=== PATIENT | female | born 1975 | race African-American/Black ===

== ENCOUNTER → 2016-05-31 | Outpatient (CLI) | payer MEDICAID | LOC: RAD 10:25 | PROVIDERS: ATTEND Physician Assistant | DX: G89.4 Chronic pain syndrome (principal) | CPT/HCPCS: 74022 ==

== ENCOUNTER 2016-06-13 09:24 | Outpatient (CLI) | payer MEDICAID ==
[~2016-06-13 09:24] MED LIST: FERRIC CARBOXYMALTOSE 750 MG in NORMAL SALINE 250 ML IV PRN; NORMAL SALINE 250 ML IV PRN
[2016-06-13 10:43] VITALS: BP 137/90
== END 2016-06-13 11:51 | disposition home or self-care (01) ==
LOC: II 09:24 → 5TH 09:26 → II 11:51
PROVIDERS: ATTEND Internal Medicine
PROC: 3E033GC Introduction of Other Therapeutic Substance into Peripheral Vein, Percutaneous Approach (ICD-10-PCS; principal; 2016-06-13)
DX: D50.8 Other iron deficiency anemias (principal); K90.9 Intestinal malabsorption, unspecified
CPT/HCPCS: 96365; J7050; J1439; 96367

== ENCOUNTER 2016-06-15 01:35 | Emergency (ER) | payer MEDICAID ==
[2016-06-15] MEDS ORDERED: PROMETHAZINE HCL INJ 25 MG/1 ML VIAL IM ONE (02:10)
--- NOTE | 2016-06-15 02:12 | ER Document Report ---
ED General - General Time seen by provider: 02:00 Information source: Patient TRAVEL OUTSIDE OF THE [place] IN LAST 30 DAYS: No - HPI Onset: Other - see HPI Associated symptoms: Nausea <DIXON ROMERO - Last Filed: 06/15/16 04:40> <AMANDAHUONG ANN - Last Filed: 06/15/16 05:55> - General Chief Complaint: Abdominal Pain Stated Complaint: ABDOMINAL PAIN Notes: Patient is a 41-year-old female presenting to the emergency department with complaints of abdominal pain. Patient was seen in the emergency department multiple times for same complaint. Patient had has history of diabetic gastroparesis, type 1 diabetes mellitus, and hypertension. Patient states that she was taking her hypertension medication and Phenergan at home. Patient states that her abdominal pain started a few weeks ago and she states today she cannot bear the pain anymore. Patient is rolling back and forth on the bed and rubbing her abdomen. Patient states that she had a cholecystectomy last year. Patient has been given medication in the emergency department to aid her symptoms and when asked which medication works best, the patient does not know. (DIXON ROMERO) - Related Data Allergies/Adverse Reactions: metoclopramide HCl [From Reglan] Allergy (Unknown, Verified 03/27/16 22:34) Past Medical History - General Information source: Patient - Social History Smoking Status: Never Smoker Frequency of alcohol use: None Drug Abuse: None Family History: Reviewed & Not Pertinent, DM - Past Medical History Cardiac Medical History: Reports: Hx Hypercholesterolemia, Hx Hypertension Endocrine Medical History: Reports: Hx Diabetes Mellitus Type 1 Renal/ Medical History: Reports: Hx Renal Insufficiency GI Medical History: Reports: Hx Gastroesophageal Reflux Disease, Other - Diabetic gastroparesis Musculoskeltal Medical History: Reports Hx Arthritis - Hand Psychiatric Medical History: Reports: Hx Anxiety, Hx Depression Infectious Medical History: Reports: Hx MRSA Past Surgical History: Reports: Hx Cholecystectomy - Immunizations Immunizations up to date: Yes Hx Diphtheria, Pertussis, Tetanus Vaccination: Yes - unknown Hx Pneumococcal Vaccination: 05/04/10 <DIXON ROMERO - Last Filed: 06/15/16 04:40> Review of Systems - Review of Systems Constitutional: No symptoms reported EENT: No symptoms reported Cardiovascular: No symptoms reported Respiratory: No symptoms reported Gastrointestinal: See HPI, Abdominal pain, Nausea Genitourinary: No symptoms reported Female Genitourinary: No symptoms reported Musculoskeletal: No symptoms reported Skin: No symptoms reported Hematologic/Lymphatic: No symptoms reported Neurological/Psychological: No symptoms reported -: Yes All other systems reviewed and negative <DIXON ROMERO - Last Filed: 06/15/16 04:40> Physical Exam - Vital signs Interpretation: Normal - General General appearance: Alert, Other - patient is rolling back and forth in the bed grasping her abdomen In distress: Mild - HEENT Head: Normocephalic, Atraumatic Eyes: Normal Pupils: PERRL Mucous membranes: Normal - Respiratory Respiratory status: No respiratory distress Chest status: Nontender Breath sounds: Normal Chest palpation: Normal - Cardiovascular Rhythm: Regular Heart sounds: Normal auscultation Murmur: No - Abdominal Inspection: Normal Distension: No distension Bowel sounds: Normal Tenderness: Nontender Organomegaly: No organomegaly - Back Back: Normal, Nontender - Extremities General upper extremity: Normal inspection, Normal ROM, Normal strength General lower extremity: Normal inspection, Normal ROM, Normal strength - Neurological Neuro grossly intact: Yes Cognition: Normal Orientation: AAOx4 Zaina Coma Scale Eye Opening: Spontaneous Zaina Coma Scale Verbal: Oriented Zaina Coma Scale Motor: Obeys Commands Edison Coma Scale Total: 15 Speech: Normal - Psychological Associated symptoms: Normal affect, Normal mood - Skin Skin Temperature: Warm Skin Moisture: Dry <DIXON ROMERO - Last Filed: 06/15/16 04:40> Course - Laboratory Result Diagrams: 06/15/16 02:05 06/15/16 02:05 <AKUAAALIYAHDIXON - Last Filed: 06/15/16 04:40> - Laboratory Result Diagrams: 06/15/16 02:05 06/15/16 02:05 <HUONG PATEL - Last Filed: 06/15/16 05:55> - Re-evaluation Re-evalutation: 06/15/16 05:54 Patient no acute findings on blood work. Vomiting has stopped. Patient is able to tolerate her blood pressure medication. She is to take her medications as prescribed at home and follow-up with her doctor regarding her chronic abdominal pain and vomiting. Stable for discharge. (HUONG PATEL) - Vital Signs Vital signs: Temp Pulse Resp BP Pulse Ox 98.1 F 111 H 23 H 189/97 H 100 06/15/16 01:41 06/15/16 01:41 06/15/16 04:28 06/15/16 04:28 06/15/16 04:28 (DIXON ROMERO) (HUONG PATEL) - Laboratory Laboratory results interpreted by me: 06/15/16 06/15/16 06/15/16 02:05 02:05 03:09 WBC 12.1 H Hgb 11.3 L MCV 78 L MCH 24.0 L MCHC 30.8 L RDW 19.5 H Seg Neutrophils % 82.9 H Lymphocytes % 11.5 L Absolute Neutrophils 10.0 H Est GFR (Non-Af Amer) 56 L Glucose 236 H Calcium 10.4 H Total Protein 8.6 H Urine Glucose (UA) >=500 H Urine Ketones TRACE H (HUONG PATEL) Discharge <DIXON ROMERO - Last Filed: 06/15/16 04:40> <HUONG PATEL - Last Filed: 06/15/16 05:55> - Discharge Clinical Impression: Chronic abdominal pain Vomiting Qualifiers: Vomiting type: unspecified Vomiting Intractability: non-intractable Nausea presence: with nausea Qualified Code(s): R11.2 - Nausea with vomiting, unspecified Condition: Stable Disposition: HOME, SELF-CARE Instructions: Abdominal Pain ([facility]), Vomiting ([facility]) Prescriptions: Dicyclomine HCl [Bentyl 20 mg Tablet] 20 mg PO QID #40 tablet Promethazine HCl [Phenergan 25 mg Tablet] 1 - 2 tab PO Q6H PRN #20 tablet PRN Reason: Referrals: CHIDI FUENTES MD [Primary Care Provider] - Follow up tomorrow Scribe Attestation: 06/15/16 05:55 I personally performed the services described in the documentation, reviewed and edited the documentation which was dictated to the scribe in my presence, and it accurately records my words and actions. (HUONG PATEL) Scribe Documentation - Scribe Written by Scribe:: Dixon Romero 02:23 06/15/16 acting as scribe for :: Amanda <DIXON ROMERO - Last Filed: 06/15/16 04:40>
[2016-06-15] MEDS ORDERED: DICYCLOMINE HCL INJ 20 MG/2 ML AMPULE IM ONE (02:15)
[2016-06-15 02:29] LABS: ABSOLUTE BASOPHILS # (AUTO) 0.1 10^3/uL (0.0-0.2); ABSOLUTE LYMPHOCYTES (AUTO) 1.4 10^3/uL (0.5-4.7); ABSOLUTE MONOCYTES (AUTO) 0.6 10^3/uL (0.1-1.4); BASOPHILS % (AUTO) 0.4 % (0-2); EOSINOPHILS % (AUTO) 0.2 % (0-6); HEMATOCRIT 36.6 % (36.0-47.0); HEMOGLOBIN 11.3 g/dL (12.0-15.5); HGB HCT DIFFERENCE -2.7; LYMPHOCYTES % (AUTO) 11.5 % (13-45); MEAN CORPUSCULAR HGB CONC 30.8 g/dL (32.0-36.0); MEAN CORPUSCULAR VOLUME 78 fl (80-97); RED BLOOD COUNT 4.69 10^6/uL (3.72-5.28); RED CELL DISTRIBUTION WIDTH 19.5 % (11.5-14.0); SEGMENTED NEUTROPHILS % (AUTO) 82.9 % (42-78); WHITE BLOOD COUNT 12.1 10^3/uL (4.0-10.5)
[2016-06-15 02:35] LABS: ALANINE AMINOTRANSFERASE 23 U/L (9-52); ALKALINE PHOSPHATASE 111 U/L (38-126); ANION GAP 16 (5-19); ASPARTATE AMINO TRANSFERASE 22 U/L (14-36); BILIRUBIN,TOTAL 0.5 mg/dL (0.2-1.3); BLOOD UREA NITROGEN 11 mg/dL (7-20); CALCIUM 10.4 mg/dL (8.4-10.2); CARBON DIOXIDE 24 mmol/L (22-30); CHLORIDE 100 mmol/L (98-107); CREATININE RESULT 1.08 mg/dL (0.52-1.25); GLUCOSE 236 mg/dL (75-110); POTASSIUM 4.4 mmol/L (3.6-5.0); SODIUM 139.5 mmol/L (137-145); TOTAL PROTEIN 8.6 g/dL (6.3-8.2)
[2016-06-15] MEDS ORDERED: PROMETHAZINE HCL INJ 50 MG/1 ML VIAL ONE (02:36)
[2016-06-15] MEDS ORDERED: NORMAL SALINE 1000 ML 1,000 ML IV ONE (02:43)
[2016-06-15 03:28] LABS: APPEARANCE,URINE CLEAR; BILIRUBIN,URINE NEGATIVE (NEGATIVE); GLUCOSE, URINE >=500 mg/dL (NEGATIVE); KETONES,URINE TRACE mg/dL (NEGATIVE); LEUKOCYTE ESTERASE,URINE NEGATIVE (NEGATIVE); NITRITE,URINE NEGATIVE (NEGATIVE); PROTEIN,URINE NEGATIVE (NEGATIVE); URINE SPECIFIC GRAVITY 1.011; UROBILINOGEN,URINE NEGATIVE mg/dL (<2.0)
[2016-06-15] MEDS ORDERED: CLONIDINE 0.1 MG/24 HR PATCH.TDWK TD ONE (03:37)
[2016-06-15] MEDS ORDERED: LISINOPRIL 10 MG TABLET PO ONE (03:50)
[2016-06-15] MEDS ORDERED: HYDROMORPHONE HCL INJ/PF 2 MG/ML AMPULE IV ONE (04:56)
[2016-06-15] MEDS ORDERED: AMLODIPINE BESYLATE 5 MG TABLET PO ONE (05:24)
[2016-06-15 06:14] VITALS: BP 197/100
== END 2016-06-15 06:15 | disposition home or self-care (01) ==
LOC: ER 01:35
DX: E10.43 Type 1 diabetes mellitus with diabetic autonomic (poly)neuropathy (principal); K31.84 Gastroparesis; R11.2 Nausea with vomiting, unspecified; R10.9 Unspecified abdominal pain; G89.29 Other chronic pain; I10 Essential (primary) hypertension; Z79.899 Other long term (current) drug therapy; Z90.49 Acquired absence of other specified parts of digestive tract; Z88.8 Allergy status to other drugs, medicaments and biological substances; Z87.19 Personal history of other diseases of the digestive system; Z86.14 Personal history of Methicillin resistant Staphylococcus aureus infection
CPT/HCPCS: 99284; 96372; 96361; 96374; 36415; 83690; 85025; 80053; 81001; J0500; J3490 ×3; J1170; J7030; J2550

== ENCOUNTER → 2016-06-19 | Outpatient (CLI) | payer MEDICAID | LOC: RAD 10:32 | PROVIDERS: ATTEND Internal Medicine Nephrology | DX: I12.9 Hypertensive chronic kidney disease with stage 1 through stage 4 chronic kidney disease, or unspecified chronic kidney disease (principal); N18.3 Chronic kidney disease, stage 3 (moderate); E11.9 Type 2 diabetes mellitus without complications; D64.9 Anemia, unspecified; E87.2 Acidosis | CPT/HCPCS: 76770 ==

== ENCOUNTER → 2016-06-19 | Outpatient (CLI) | payer MEDICAID ==
[2016-06-19 10:14] LABS: APPEARANCE,URINE CLEAR; BILIRUBIN,URINE NEGATIVE (NEGATIVE); GLUCOSE, URINE >=500 mg/dL (NEGATIVE); KETONES,URINE NEGATIVE (NEGATIVE); LEUKOCYTE ESTERASE,URINE NEGATIVE (NEGATIVE); NITRITE,URINE NEGATIVE (NEGATIVE); PROTEIN,URINE NEGATIVE (NEGATIVE); URINE SPECIFIC GRAVITY 1.024; UROBILINOGEN,URINE NEGATIVE mg/dL (<2.0)
[2016-06-19 10:15] LABS: ABSOLUTE EOSINOPHILS # (AUTO) 0.1 10^3/uL (0.0-0.6); ABSOLUTE LYMPHOCYTES (AUTO) 1.5 10^3/uL (0.5-4.7); ABSOLUTE MONOCYTES (AUTO) 0.5 10^3/uL (0.1-1.4); ABSOLUTE NEUT (AUTO) 4.1 10^3/uL (1.7-8.2); BASOPHILS % (AUTO) 0.3 % (0-2); EOSINOPHILS % (AUTO) 1.2 % (0-6); HEMATOCRIT 27.9 % (36.0-47.0); HEMOGLOBIN 8.8 g/dL (12.0-15.5); HGB HCT DIFFERENCE -1.5; LYMPHOCYTES % (AUTO) 24.6 % (13-45); MEAN CORPUSCULAR HGB CONC 31.5 g/dL (32.0-36.0); MEAN CORPUSCULAR VOLUME 79 fl (80-97); MONOCYTES % (AUTO) 7.5 % (3-13); RED BLOOD COUNT 3.52 10^6/uL (3.72-5.28); RED CELL DISTRIBUTION WIDTH 19.9 % (11.5-14.0); SEGMENTED NEUTROPHILS % (AUTO) 66.4 % (42-78); WHITE BLOOD COUNT 6.1 10^3/uL (4.0-10.5)
[2016-06-19 10:41] LABS: ALANINE AMINOTRANSFERASE 29 U/L (9-52); ALBUMIN 3.1 g/dL (3.5-5.0); ALKALINE PHOSPHATASE 82 U/L (38-126); ANION GAP 9 (5-19); ASPARTATE AMINO TRANSFERASE 23 U/L (14-36); BILIRUBIN,TOTAL 0.2 mg/dL (0.2-1.3); BLOOD UREA NITROGEN 18 mg/dL (7-20); CALCIUM 8.8 mg/dL (8.4-10.2); CARBON DIOXIDE 25 mmol/L (22-30); CHLORIDE 104 mmol/L (98-107); CREATINE KINASE 85 U/L (30-135); CREATININE RESULT 1.04 mg/dL (0.52-1.25); GLUCOSE 195 mg/dL (75-110); LDH 369 U/L (313-618); MAGNESIUM 1.5 mg/dL (1.6-2.3); PHOSPHORUS 2.8 mg/dL (2.5-4.5); POTASSIUM 3.8 mmol/L (3.6-5.0); SODIUM 138.3 mmol/L (137-145); URIC ACID 5.1 mg/dL (2.5-7.0)
[2016-06-20 15:38] LABS: A/G RATIO 1.1 (0.7-1.7); ALBUMIN 2 3.2 g/dL (2.9-4.4); ALPHA-1-GLOBULIN 2 0.2 g/dL (0.0-0.4); GAMMA GLOBULIN 1.1 g/dL (0.4-1.8)
== END ==
LOC: OD 08:44
PROVIDERS: ATTEND Internal Medicine Nephrology
DX: I12.9 Hypertensive chronic kidney disease with stage 1 through stage 4 chronic kidney disease, or unspecified chronic kidney disease (principal); N18.3 Chronic kidney disease, stage 3 (moderate); D64.9 Anemia, unspecified; E11.9 Type 2 diabetes mellitus without complications; E87.2 Acidosis
CPT/HCPCS: 36415; 80053; 81001; 82550; 82728; 83540; 83550; 83615; 83735; 84100; 84165; 84443; 84550; 85025; 86038

== ENCOUNTER 2016-06-20 09:14 | Outpatient (CLI) | payer MEDICAID ==
[2016-06-20 10:14] VITALS: BP 136/77
== END 2016-06-20 10:15 | disposition home or self-care (01) ==
LOC: II 09:14 → 5TH 09:18 → II 10:15
PROVIDERS: ATTEND Internal Medicine
PROC: 3E033GC Introduction of Other Therapeutic Substance into Peripheral Vein, Percutaneous Approach (ICD-10-PCS; principal; 2016-06-20)
DX: D50.8 Other iron deficiency anemias (principal); K90.9 Intestinal malabsorption, unspecified
CPT/HCPCS: 96365; J7050; J1439

== ENCOUNTER 2016-06-26 00:48 | Emergency (ER) | payer MEDICAID ==
[2016-06-26] MEDS ORDERED: CLONIDINE 0.2 MG/24 HR PATCH.TDWK TD ONE ×2 (02:58→04:53)
[2016-06-26] MEDS ORDERED: PROMETHAZINE HCL INJ 25 MG/1 ML VIAL IM ONE (02:59)
[2016-06-26] MEDS ORDERED: DIPHENHYDRAMINE HCL 50 MG/ML VIAL IV ONE ×2 (03:04→04:44)
[2016-06-26] MEDS ORDERED: NORMAL SALINE 1000 ML 1,000 ML IV ONE ×3 (03:04→06:22)
--- NOTE | 2016-06-26 03:06 | ER Document Report ---
ED GI/ - General Time seen by provider: 03:05 TRAVEL OUTSIDE OF THE [place] IN LAST 30 DAYS: No <HUMPHREY MINER - Last Filed: 06/26/16 07:58> <OSWALD BILL - Last Filed: 06/26/16 08:41> - General Chief Complaint: Abdominal Pain Stated Complaint: ABDOMINAL PAIN,DIARRHEA Notes: Patient is a 41-year-old female that comes emergency department for chief complaint of pain in her upper abdomen with vomiting and a few episodes of diarrhea, symptoms started 3 days ago, patient has a history of gastroparesis, type II diabetes, patient has had a cholecystectomy. Patient states that she is on blood pressure medications, SSRI, and she now sees primary care Dr. Fuentes. (HUMPHREY MINER) - Related Data Allergies/Adverse Reactions: metoclopramide HCl [From Reglan] Allergy (Unknown, Verified 03/27/16 22:34) Past Medical History - Social History Smoking Status: Unknown if Ever Smoked Family History: Reviewed & Not Pertinent, DM Patient has suicidal ideation: No Patient has homicidal ideation: No - Past Medical History Cardiac Medical History: Reports: Hx Hypercholesterolemia, Hx Hypertension Endocrine Medical History: Reports: Hx Diabetes Mellitus Type 1, Hx Diabetes Mellitus Type 2 Renal/ Medical History: Reports: Hx Renal Insufficiency. Denies: Hx Peritoneal Dialysis GI Medical History: Reports: Hx Gastroesophageal Reflux Disease Musculoskeltal Medical History: Reports Hx Arthritis - Hand Psychiatric Medical History: Reports: Hx Anxiety, Hx Depression Infectious Medical History: Reports: Hx MRSA Past Surgical History: Reports: Hx Cholecystectomy - Immunizations Immunizations up to date: Yes Hx Diphtheria, Pertussis, Tetanus Vaccination: Yes - unknown Hx Pneumococcal Vaccination: 05/04/10 <HUMPHREY MINER - Last Filed: 06/26/16 07:58> Course - Laboratory Result Diagrams: 06/26/16 04:09 06/26/16 04:09 <HUMPHREY MINER - Last Filed: 06/26/16 07:58> - Laboratory Result Diagrams: 06/26/16 04:09 06/26/16 04:09 <OSWALD BILL - Last Filed: 06/26/16 08:41> - Re-evaluation Re-evalutation: 06/26/16 08:21 Receiving report from Humphrey Henderson. Patients abdomen tender to the upper mid abdomen complaining of pain moaning no other area of the abdomen tender bowel sounds active. Abdomen soft. Blood pressure elevated other vital signs stable. Patient's IV fluids finished. BP 154/94 Patient will be discharged home with Humphrey's discharge instructions. Patient to follow up with primary md today or tomorrow. (OSWALD BILL) - Vital Signs Vital signs: Temp Pulse Resp BP Pulse Ox 98.1 F 112 H 20 172/106 H 100 06/26/16 08:11 06/26/16 06:33 06/26/16 08:11 06/26/16 08:01 06/26/16 08:11 (OSWALD BILL) - Laboratory Laboratory results interpreted by me: 06/26/16 06/26/16 06/26/16 03:31 04:09 04:09 WBC 12.2 H RBC 5.33 H MCH 25.9 L RDW 24.1 H Abs Neuts (Manual) 8.5 H Abs Monocytes (Manual) 1.6 H Carbon Dioxide 19 L Glucose 192 H Urine Glucose (UA) >=500 H Urine Ketones TRACE H (OSWALD BILL) Discharge <HUMPHREY MINER - Last Filed: 06/26/16 07:58> <OSWALD BILL - Last Filed: 06/26/16 08:41> - Discharge Clinical Impression: Upper abdominal pain Nausea and vomiting Qualifiers: Vomiting type: unspecified Vomiting Intractability: non-intractable Qualified Code(s): R11.2 - Nausea with vomiting, unspecified Condition: Stable Disposition: HOME, SELF-CARE Additional Instructions: No pancreatitis or other abnormalities noted on your workup today. Take the clonidine patch off in 1 week (follow up with your Provider within this week) Follow-up with your provider for additional management of gastroparesis and chronic abdominal pain. Return to emergency department for any concerning or worsening symptoms including uncontrolled vomiting, fever, etc. Prescriptions: Ondansetron [Zofran Odt 4 mg Tablet] 1 - 2 tab PO Q4H PRN #15 tab.rapdis PRN Reason: For Nausea/Vomiting Promethazine HCl [Phenergan 25 mg Tablet] 1 - 2 tab PO Q6H PRN #20 tablet PRN Reason: Promethazine HCl [Phenergan 25 mg Supp.rect] 1 supp AR Q6H #20 supp.rect Referrals: CHIDI FUENTES MD [Primary Care Provider] - Follow up as needed
[2016-06-26] MEDS ORDERED: PROMETHAZINE HCL INJ 25 MG/1 ML VIAL ONE (03:20)
[2016-06-26 03:49] LABS: APPEARANCE,URINE CLOUDY; BILIRUBIN,URINE NEGATIVE (NEGATIVE); GLUCOSE, URINE >=500 mg/dL (NEGATIVE); KETONES,URINE TRACE mg/dL (NEGATIVE); LEUKOCYTE ESTERASE,URINE NEGATIVE (NEGATIVE); NITRITE,URINE NEGATIVE (NEGATIVE); PROTEIN,URINE NEGATIVE (NEGATIVE); TRIPLE PHOSPHATE CRYSTAL,URINE TOO NUMEROUS TO CNT /HPF; URINE SPECIFIC GRAVITY 1.028; UROBILINOGEN,URINE NEGATIVE mg/dL (<2.0)
[2016-06-26] MEDS ORDERED: HALOPERIDOL LACTATE INJ 5 MG/1 ML VIAL IM ONE (04:13)
[2016-06-26 04:36] LABS: ALANINE AMINOTRANSFERASE 37 U/L (9-52); ALBUMIN 4.2 g/dL (3.5-5.0); ALKALINE PHOSPHATASE 123 U/L (38-126); ANION GAP 15 (5-19); ASPARTATE AMINO TRANSFERASE 22 U/L (14-36); BILIRUBIN,TOTAL 0.6 mg/dL (0.2-1.3); BLOOD UREA NITROGEN 15 mg/dL (7-20); CALCIUM 10.1 mg/dL (8.4-10.2); CARBON DIOXIDE 19 mmol/L (22-30); CHLORIDE 105 mmol/L (98-107); CREATININE RESULT 0.97 mg/dL (0.52-1.25); GLUCOSE 192 mg/dL (75-110); LIPASE 239.3 U/L (23-300); POTASSIUM 4.4 mmol/L (3.6-5.0); SODIUM 138.5 mmol/L (137-145); TOTAL PROTEIN 8.2 g/dL (6.3-8.2)
[2016-06-26 04:40] LABS: HEMATOCRIT 42.8 % (36.0-47.0); HEMOGLOBIN 13.8 g/dL (12.0-15.5); HGB HCT DIFFERENCE -1.4; MEAN CORPUSCULAR HEMOGLOBIN 25.9 pg (27.0-33.4); MEAN CORPUSCULAR HGB CONC 32.2 g/dL (32.0-36.0); MEAN CORPUSCULAR VOLUME 80 fl (80-97); RED BLOOD COUNT 5.33 10^6/uL (3.72-5.28); RED CELL DISTRIBUTION WIDTH 24.1 % (11.5-14.0); WHITE BLOOD COUNT 12.2 10^3/uL (4.0-10.5)
[2016-06-26] MEDS ORDERED: MORPHINE SULFATE 10 MG/ML INJ IV ONE ×3 (04:56→08:20)
[2016-06-26 05:04] LABS: BASOPHILS % (MANUAL) 0 % (0-2); EOSINOPHILS % (MANUAL) 1 % (0-6); LYMPHOCYTES % (MANUAL) 16 % (13-45); TOTAL CELLS COUNTED 100
[2016-06-26 05:06] LABS: ANISOCYTOSIS 3+; BURR CELLS SLIGHT; HYPOCHROMASIA SLIGHT; MICROCYTOSIS SLIGHT; OVALOCYTES SLIGHT; POIKILOCYTOSIS SLIGHT; POLYCHROMASIA SLIGHT; SCHISTOCYTES SLIGHT; TOXIC GRANULATION SLIGHT
[2016-06-26] MEDS ORDERED: CLONIDINE 0.2 MG/24 HR PATCH.TDWK ONE (05:09)
[2016-06-26] MEDS ORDERED: LABETALOL HCL INJ 20 MG/4 ML DISP.SYRIN IV ONE (06:59)
[2016-06-26 08:40] VITALS: BP 164/94
== END 2016-06-26 08:37 | disposition home or self-care (01) ==
LOC: ER 00:48
DX: R10.10 Upper abdominal pain, unspecified (principal); R11.2 Nausea with vomiting, unspecified; R10.816 Epigastric abdominal tenderness; R19.7 Diarrhea, unspecified; I10 Essential (primary) hypertension; E11.9 Type 2 diabetes mellitus without complications; F32.9 Major depressive disorder, single episode, unspecified; Z90.49 Acquired absence of other specified parts of digestive tract; Z79.899 Other long term (current) drug therapy; Z88.8 Allergy status to other drugs, medicaments and biological substances; Z87.19 Personal history of other diseases of the digestive system; Z86.14 Personal history of Methicillin resistant Staphylococcus aureus infection
CPT/HCPCS: 96376; 99284; 96372; 96361; 96374; 96375; 36415; 83690; 84703; 85025; 80053; 81001; J1200; J1630; J3490 ×2; J2270; J2550; J7030 ×2

== ENCOUNTER 2016-07-10 12:23 | Emergency (ER) | payer MEDICAID ==
[2016-07-10] MEDS ORDERED: IBUPROFEN 600 MG TABLET PO ONE (12:40)
--- NOTE | 2016-07-10 12:40 | ER Document Report ---
ED Medical Screen (RME) - General Stated Complaint: ABDOMINAL PAIN Time seen by provider: 12:38 Mode of Arrival: Ambulatory Information source: Patient Notes: 41-year-old female presents to ED for upper abdominal pain all the way across. Denies nausea or vomiting or fever. States pain started this morning. States she has not taken anything for her pain yet. Last menstrual period 06/27/2016 I have greeted and performed a rapid initial assessment of this patient. A comprehensive ED assessment and evaluation of the patient, analysis of test results and completion of medical decision making process will be conducted by an additional ED providers. TRAVEL OUTSIDE OF THE [place] IN LAST 30 DAYS: No - Related Data Allergies/Adverse Reactions: metoclopramide HCl [From Reglan] Allergy (Unknown, Verified 03/27/16 22:34) Past Medical History - Social History Family history: DM, Hypertension - Past Medical History Cardiac Medical History: Reports: Hx Hypercholesterolemia, Hx Hypertension Endocrine Medical History: Reports: Hx Diabetes Mellitus Type 1, Hx Diabetes Mellitus Type 2 Renal/ Medical History: Reports: Hx Renal Insufficiency. Denies: Hx Peritoneal Dialysis GI Medical History: Reports: Hx Gastroesophageal Reflux Disease Musculoskeltal Medical History: Reports Hx Arthritis - Hand Psychiatric Medical History: Reports: Hx Anxiety, Hx Depression Infectious Medical History: Reports: Hx MRSA Past Surgical History: Reports: Hx Cholecystectomy - Immunizations Immunizations up to date: Yes Hx Diphtheria, Pertussis, Tetanus Vaccination: Yes - unknown
[2016-07-10 13:45] LABS: APPEARANCE,URINE SLIGHTLY-CLOUDY; BILIRUBIN,URINE NEGATIVE (NEGATIVE); GLUCOSE, URINE >=500 mg/dL (NEGATIVE); KETONES,URINE NEGATIVE (NEGATIVE); LEUKOCYTE ESTERASE,URINE NEGATIVE (NEGATIVE); NITRITE,URINE NEGATIVE (NEGATIVE); PROTEIN,URINE NEGATIVE (NEGATIVE); URINE SPECIFIC GRAVITY 1.027; UROBILINOGEN,URINE NEGATIVE mg/dL (<2.0)
[2016-07-10] MEDS ORDERED: PROMETHAZINE HCL 25 MG SUPP.RECT PR ONE (13:51)
[2016-07-10 13:58] LABS: URINE BARBITURATES SCREEN NEGATIVE; URINE METHADONE SCREEN NEGATIVE; URINE OPIATES LOW NEGATIVE; URINE PHENCYCLIDINE SCREEN NEGATIVE
[2016-07-10 14:07] LABS: ALANINE AMINOTRANSFERASE 29 U/L (9-52); ALBUMIN 4.6 g/dL (3.5-5.0); ALKALINE PHOSPHATASE 138 U/L (38-126); ANION GAP 15 (5-19); ASPARTATE AMINO TRANSFERASE 22 U/L (14-36); BILIRUBIN,TOTAL 0.8 mg/dL (0.2-1.3); BLOOD UREA NITROGEN 14 mg/dL (7-20); CALCIUM 10.6 mg/dL (8.4-10.2); CARBON DIOXIDE 24 mmol/L (22-30); CHLORIDE 98 mmol/L (98-107); CREATININE RESULT 0.88 mg/dL (0.52-1.25); GLUCOSE 190 mg/dL (75-110); LIPASE 184.6 U/L (23-300); POTASSIUM 4.1 mmol/L (3.6-5.0); SODIUM 137.4 mmol/L (137-145); TOTAL PROTEIN 9.1 g/dL (6.3-8.2)
--- NOTE | 2016-07-10 14:27 | ER Document Report ---
ED General - General Chief Complaint: Abdominal Pain Stated Complaint: ABDOMINAL PAIN Mode of Arrival: Ambulatory Information source: Patient Notes: Patient presents to the emergency department with complaints of abdominal pain that comes and goes, denies diarrhea, nausea vomiting. She has history of diabetic gastroparesis. Reports blood glucose has been a little elevated. Patient reports she went to see Dr. Fuentes this morning he told her it was heartburn. He has prescribed her Nexium. She is waiting on a test for celiac. Patient reports she's had this abdominal pain for the past 3 years. She denies pain with void, denies vaginal discharge. TRAVEL OUTSIDE OF THE [place] IN LAST 30 DAYS: No - HPI Onset: Other - 3 years Onset/Duration: Persistent Quality of pain: Achy, Sharp Severity: Severe Pain Level: 4 Associated symptoms: None Exacerbated by: Denies Relieved by: Denies Similar symptoms previously: Yes Recently seen / treated by doctor: Yes - Related Data Allergies/Adverse Reactions: metoclopramide HCl [From Reglan] Allergy (Unknown, Verified 03/27/16 22:34) Past Medical History - General Information source: Patient Last Menstrual Period: 06/27/16 - Social History Smoking Status: Never Smoker Chew tobacco use (# tins/day): No Frequency of alcohol use: None Drug Abuse: None Family History: Reviewed & Not Pertinent, DM Patient has suicidal ideation: No Patient has homicidal ideation: No - Past Medical History Cardiac Medical History: Reports: Hx Hypercholesterolemia, Hx Hypertension Endocrine Medical History: Reports: Hx Diabetes Mellitus Type 1, Hx Diabetes Mellitus Type 2 Renal/ Medical History: Reports: Hx Renal Insufficiency. Denies: Hx Peritoneal Dialysis GI Medical History: Reports: Hx Gastroesophageal Reflux Disease Musculoskeltal Medical History: Reports Hx Arthritis - Hand Psychiatric Medical History: Reports: Hx Anxiety, Hx Depression Infectious Medical History: Reports: Hx MRSA Past Surgical History: Reports: Hx Cholecystectomy - Immunizations Immunizations up to date: Yes Hx Diphtheria, Pertussis, Tetanus Vaccination: Yes - unknown Hx Pneumococcal Vaccination: 05/04/10 Review of Systems - Review of Systems Notes: Review HPI for review of systems., All other systems negative Physical Exam - Vital signs Vitals: Temp Pulse Resp BP Pulse Ox 97.9 F 102 H 16 169/104 H 99 07/10/16 12:36 07/10/16 12:36 07/10/16 12:36 07/10/16 12:36 07/10/16 12:36 - Notes Notes: PHYSICAL EXAMINATION: GENERAL: pt rolling in bed holding her abdomen. She stops rolling with conversation HEAD: Atraumatic, normocephalic. EYES: Pupils equal round extraocular movements intact, sclera anicteric, conjunctiva are normal. ENT: nares patent, . Moist mucous membranes. NECK: Normal range of motion, supple without lymphadenopathy LUNGS: CTAB and equal. No wheezes rales or rhonchi. HEART: Regular rate and rhythm without murmurs ABDOMEN: Soft, no tenderness. No guarding, no rebound no pain with palpation, reports epigastric pain come/goes EXTREMITIES: Normal range of motion, no pitting edema. No cyanosis. NEUROLOGICAL: Cranial nerves grossly intact. Normal sensory/motor exams. PSYCH: Normal mood, normal affect. SKIN: Warm, Dry, normal turgor, no rashes or lesions noted Course - Re-evaluation Re-evalutation: 07/10/16 16:32 WBC 14 no shift, Patient reports she still little better after heating pack and Toradol. She was instructed to follow up with Dr. Fuentes tomorrow for continued pain return to ER for concerns. Patient observed sleeping when nobody is in the room. When aroused she will frequently start rolling back/forth. The patient has been here multiple times with the same complaint. She has had multiple CTs - 13 within the past 3 years The patient presents with abdominal pain without signs of peritonitis or other life threatening or serious etiology. The patient appears stable for discharge and has been instructed to return immediately if the symptoms worsen in any way or in 8-12 hours if not improved for reevaluation. The patient has been instructed to return if the symptoms worsen or change in any way. 07/10/16 17:36 I have consulted the attending provider dr rosas per [facility] guidelines Dr Rosas updated on patient past medical history, HTN, pt due to change her clonidine patch tomorrow. Patient was instructed on the importance of follow- up with Dr. Fuentes tomorrow. Patient was instructed on Tylenol Motrin for the pain. She reports hot tub baths relief her pain also. Patient has a history of extremely high blood pressure. She was encouraged to follow-up with Dr. Fuentes to discuss changes. She was instructed on lifestyle changes such as watching her diet. patient rolling on the bed. Patient was offered some Ativan to help her relax she declined. Patient was instructed that I cannot give her any kind of narcotics because it may worsen her abdominal pain. Pt left room. - Vital Signs Vital signs: Temp Pulse Resp BP Pulse Ox 98.2 F 105 H 16 186/122 H 100 07/10/16 17:22 07/10/16 17:22 07/10/16 12:36 07/10/16 17:22 07/10/16 17:22 - Laboratory Result Diagrams: 07/10/16 14:26 07/10/16 13:30 Laboratory results interpreted by me: 07/10/16 07/10/16 07/10/16 13:30 13:30 14:26 WBC 14.2 H RDW 22.9 H Absolute Neutrophils 10.5 H Glucose 190 H Calcium 10.6 H Alkaline Phosphatase 138 H Total Protein 9.1 H Urine Glucose (UA) >=500 H Discharge - Discharge Clinical Impression: Abdominal pain, Nausea & vomiting Condition: Stable Disposition: HOME, SELF-CARE Instructions: Abdominal Pain ([facility]), Vomiting ([facility]) Additional Instructions: *You have been evaluated for abdominal pain *Take medication as prescribed *Follow up with Dr Fuentes within 3 days for recheck *Follow up with gastroenterology *Return to ED for worsening condition, changes, needs *Return to ED if not better in 24 hours Referrals: CHIDI FUENTES MD [Primary Care Provider] - Follow up in 3-5 days
[2016-07-10] MEDS ORDERED: NORMAL SALINE 1000 ML 1,000 ML IV ONE (14:31)
[2016-07-10 14:36] LABS: ABSOLUTE BASOPHILS # (AUTO) 0.1 10^3/uL (0.0-0.2); ABSOLUTE EOSINOPHILS # (AUTO) 0.1 10^3/uL (0.0-0.6); ABSOLUTE LYMPHOCYTES (AUTO) 2.5 10^3/uL (0.5-4.7); ABSOLUTE MONOCYTES (AUTO) 1.1 10^3/uL (0.1-1.4); ABSOLUTE NEUT (AUTO) 10.5 10^3/uL (1.7-8.2); BASOPHILS % (AUTO) 0.9 % (0-2); EOSINOPHILS % (AUTO) 0.8 % (0-6); HEMATOCRIT 40.2 % (36.0-47.0); HEMOGLOBIN 13.2 g/dL (12.0-15.5); HGB HCT DIFFERENCE -0.6; LYMPHOCYTES % (AUTO) 17.4 % (13-45); MEAN CORPUSCULAR HEMOGLOBIN 27.1 pg (27.0-33.4); MEAN CORPUSCULAR HGB CONC 32.9 g/dL (32.0-36.0); MEAN CORPUSCULAR VOLUME 82 fl (80-97); MONOCYTES % (AUTO) 7.4 % (3-13); RED BLOOD COUNT 4.89 10^6/uL (3.72-5.28); RED CELL DISTRIBUTION WIDTH 22.9 % (11.5-14.0); SEGMENTED NEUTROPHILS % (AUTO) 73.5 % (42-78); WHITE BLOOD COUNT 14.2 10^3/uL (4.0-10.5)
[2016-07-10] MEDS ORDERED: DICYCLOMINE HCL 20 MG TABLET PO ONE (14:42)
[2016-07-10] MEDS ORDERED: LIDOCAINE 2% VISCOUS SOLN 20 ML UDCUP PO ONE (14:42)
[2016-07-10] MEDS ORDERED: MAG HYDROX/AL HYDROX/SIMETH SUSP 30 ML UDCUP PO ONE (14:42)
[2016-07-10] MEDS ORDERED: KETOROLAC TROMETHAMINE 60 MG/2 ML SDV IM ONE (15:59)
[2016-07-10 17:42] VITALS: BP 186/122
== END 2016-07-10 17:42 | disposition home or self-care (01) ==
LOC: ER 12:23
DX: K21.9 Gastro-esophageal reflux disease without esophagitis (principal); R10.13 Epigastric pain; R11.2 Nausea with vomiting, unspecified; E11.9 Type 2 diabetes mellitus without complications; I10 Essential (primary) hypertension; Z88.8 Allergy status to other drugs, medicaments and biological substances; Z86.14 Personal history of Methicillin resistant Staphylococcus aureus infection; Z90.49 Acquired absence of other specified parts of digestive tract; Z79.899 Other long term (current) drug therapy
CPT/HCPCS: 99284; 96372; 36415; 83690; 84703; 85025; 80053; 81001; 80307; J3490 ×5; J1885

== ENCOUNTER 2016-07-16 11:30 | Emergency (ER) | payer MEDICAID | END 2016-07-16 12:30 | disposition left against medical advice (07) | LOC: ER 11:30 | DX: Z53.9 Procedure and treatment not carried out, unspecified reason (principal); R10.9 Unspecified abdominal pain ==

== ENCOUNTER 2016-07-16 12:20 | Emergency (ER) | payer MEDICAID ==
[2016-07-16 12:34] VITALS: BP 194/123
[2016-07-16] MEDS ORDERED: ONDANSETRON 4 MG TAB.RAPDIS PO ONE (12:36)
[2016-07-16] MEDS ORDERED: MAG HYDROX/AL HYDROX/SIMETH SUSP 30 ML UDCUP PO ONE (12:36)
[2016-07-16] MEDS ORDERED: LIDOCAINE 2% VISCOUS SOLN 20 ML UDCUP PO ONE (12:36)
[2016-07-16] MEDS ORDERED: DIPHENHYDRAMINE HCL 25 MG CAPSULE PO ONE (12:36)
--- NOTE | 2016-07-16 12:38 | ER Document Report ---
ED Medical Screen (RME) - General Chief Complaint: Abdominal Pain Stated Complaint: ABDOMINAL PAIN Mode of Arrival: Ambulatory Information source: Patient Notes: 41-year-old female presents to the emergency department via EMS complaining of mid abdominal pain and nausea/vomiting. Reports multiple similar episodes in the past due to diabetic gastroparesis. Denies fever or blood in emesis. I have greeted and performed a rapid initial assessment of this patient. A comprehensive ED assessment and evaluation of the patient, analysis of test results and completion of the medical decision making process will be conducted by additional ED providers. TRAVEL OUTSIDE OF THE [place] IN LAST 30 DAYS: No - Related Data Allergies/Adverse Reactions: metoclopramide HCl [From Reglan] Allergy (Unknown, Verified 07/16/16 12:35) Past Medical History - Social History Family history: DM, Hypertension - Past Medical History Cardiac Medical History: Reports: Hx Hypercholesterolemia, Hx Hypertension Endocrine Medical History: Reports: Hx Diabetes Mellitus Type 1, Hx Diabetes Mellitus Type 2 Renal/ Medical History: Reports: Hx Renal Insufficiency. Denies: Hx Peritoneal Dialysis GI Medical History: Reports: Hx Gastroesophageal Reflux Disease Musculoskeltal Medical History: Reports Hx Arthritis - Hand Psychiatric Medical History: Reports: Hx Anxiety, Hx Depression Infectious Medical History: Reports: Hx MRSA Past Surgical History: Reports: Hx Cholecystectomy - Immunizations Immunizations up to date: Yes Hx Diphtheria, Pertussis, Tetanus Vaccination: Yes - unknown Physical Exam - Vital signs Vitals: Temp Pulse Resp BP Pulse Ox 98.1 F 122 H 24 H 194/123 H 100 07/16/16 12:32 07/16/16 12:32 07/16/16 12:32 07/16/16 12:32 07/16/16 12:32 - General General appearance: Alert In distress: None - Respiratory Respiratory status: No respiratory distress Course - Vital Signs Vital signs: Temp Pulse Resp BP Pulse Ox 98.1 F 122 H 24 H 194/123 H 100 07/16/16 12:32 07/16/16 12:32 07/16/16 12:32 07/16/16 12:32 07/16/16 12:32
[2016-07-16 13:28] LABS: HEMATOCRIT 47.7 % (36.0-47.0); HEMOGLOBIN 16.1 g/dL (12.0-15.5); HGB HCT DIFFERENCE 0.6; MEAN CORPUSCULAR HEMOGLOBIN 27.9 pg (27.0-33.4); MEAN CORPUSCULAR HGB CONC 33.7 g/dL (32.0-36.0); MEAN CORPUSCULAR VOLUME 83 fl (80-97); RED BLOOD COUNT 5.76 10^6/uL (3.72-5.28); RED CELL DISTRIBUTION WIDTH 21.9 % (11.5-14.0)
[2016-07-16 14:10] LABS: BAND NEUTROPHILS % (MANUAL) 1 % (3-5); BASOPHILS % (MANUAL) 0 % (0-2); EOSINOPHILS % (MANUAL) 1 % (0-6); LYMPHOCYTES % (MANUAL) 23 % (13-45); TOTAL CELLS COUNTED 100
[2016-07-16 14:11] LABS: ANISOCYTOSIS 3+; HYPOCHROMASIA SLIGHT; PLATELET CLUMPS PRESENT
== END 2016-07-16 21:00 | disposition left against medical advice (07) ==
LOC: ER 12:20
DX: Z53.9 Procedure and treatment not carried out, unspecified reason (principal); R10.9 Unspecified abdominal pain; R11.2 Nausea with vomiting, unspecified; K31.84 Gastroparesis; E78.00 Pure hypercholesterolemia, unspecified; I10 Essential (primary) hypertension
CPT/HCPCS: 99281; 36415; 85025; J3490 ×3; S0119

== ENCOUNTER 2016-07-17 09:24 | Emergency (ER) | payer MEDICAID ==
[2016-07-17] MEDS ORDERED: LIDOCAINE 2% VISCOUS SOLN 20 ML UDCUP PO ONE (11:14)
[2016-07-17] MEDS ORDERED: PROMETHAZINE HCL 25 MG TABLET PO ONE (11:16)
--- NOTE | 2016-07-17 11:33 | ER Document Report ---
ED GI/ - General Chief Complaint: Upper Abdominal Pain Stated Complaint: ABDOMINAL PAIN Notes: patient is a 41 presents complaining of abdominal pain. Patient has a known diagnosis of diabetic gastroparesis. She is noncompliant with follow-up with tv technician Dr. Rogers who is previously seen her and treated her. Patient states that she goes to [facility] with Luan Robison for pain management and is due to follow up with him on August 03 for celiac biopsy. Patient states that she is not on anything currently for pain. States that this current episode has been lasting for 3 days and occasional emesis but otherwise tolerating by mouth it admits to abdominal pain that she cannot quite describe. She denies that it is burning, stabbing more as a cramp/squeezing pressure. Patient also has a known diagnosis of blood blood pressure but she's been noncompliant with her medications. Primary care doctor is Dr. Fuentes Past medical history significant for type II diabetes, gastroparesis, hypertension Past surgical history significant for cholecystectomy Social history denies any alcohol, tobacco, drug use. TRAVEL OUTSIDE OF THE [place] IN LAST 30 DAYS: No - Related Data Allergies/Adverse Reactions: metoclopramide HCl [From Reglan] Allergy (Unknown, Verified 07/17/16 09:35) Past Medical History - Social History Smoking Status: Never Smoker Family History: Reviewed & Not Pertinent, DM Patient has suicidal ideation: No Patient has homicidal ideation: No - Past Medical History Cardiac Medical History: Reports: Hx Hypercholesterolemia, Hx Hypertension Endocrine Medical History: Reports: Hx Diabetes Mellitus Type 1, Hx Diabetes Mellitus Type 2 Renal/ Medical History: Reports: Hx Renal Insufficiency. Denies: Hx Peritoneal Dialysis GI Medical History: Reports: Hx Gastroesophageal Reflux Disease Musculoskeltal Medical History: Reports Hx Arthritis - Hand Psychiatric Medical History: Reports: Hx Anxiety, Hx Depression Infectious Medical History: Reports: Hx MRSA Past Surgical History: Reports: Hx Cholecystectomy - Immunizations Immunizations up to date: Yes Hx Diphtheria, Pertussis, Tetanus Vaccination: Yes - unknown Hx Pneumococcal Vaccination: 05/04/10 Review of Systems - Review of Systems Constitutional: No symptoms reported EENT: No symptoms reported Cardiovascular: No symptoms reported Respiratory: No symptoms reported Gastrointestinal: See HPI Genitourinary: No symptoms reported Female Genitourinary: No symptoms reported Musculoskeletal: No symptoms reported Skin: No symptoms reported Hematologic/Lymphatic: No symptoms reported Neurological/Psychological: No symptoms reported Physical Exam - Vital signs Vitals: Temp Pulse Resp BP Pulse Ox 97.9 F 117 H 18 211/121 H 99 07/17/16 09:30 07/17/16 09:30 07/17/16 09:30 07/17/16 09:30 07/17/16 09:30 - Notes Notes: PHYSICAL EXAM GENERAL: Alert, interacts well. HEAD: Normocephalic, atraumatic. EYES: Pupils equal, round, and reactive to light. Extraocular movements intact. ENT: Oral mucosa moist, tongue midline. NECK: Full range of motion. Supple. Trachea midline. LUNGS: Clear to auscultation bilaterally, no wheezes, rales, or rhonchi. No respiratory distress. HEART: Regular rate and rhythm. No murmurs, gallops, or rubs. ABDOMEN: Soft, nondistended, nontender. No guarding, rebound, or rigidity.. Bowel sounds present in all 4 quadrants. EXTREMITIES: Moves all 4 extremities spontaneously. No edema, radial and dorsalis pedis pulses 2/4 bilaterally. No cyanosis. NEUROLOGICAL: Alert and oriented x3. Normal speech. PSYCH: Normal affect, normal mood. SKIN: Warm, dry, normal turgor. No rashes or lesions noted. Course - Re-evaluation Re-evalutation: 07/17/16 11:42 Patient is a 41-year-old female presents emergency department with complaints of epigastric pain. Patient states that this is her chronic abdominal pain and she has not thrown up today that she has had episodes of emesis over the past 3 days. States her pain is 5 out of 5 in severity and described as a pressure. Lab work does not reveal any acute abdominal process. The patient is tolerating by mouth fluids without any difficulty. Given by mouth lidocaine which she said resolved her symptoms. Patient stable for discharge and can follow-up with her PCP this week. - Vital Signs Vital signs: Temp Pulse Resp BP Pulse Ox 97.9 F 117 H 18 211/121 H 99 07/17/16 09:30 07/17/16 09:30 07/17/16 09:30 07/17/16 09:30 07/17/16 09:30 - Laboratory Result Diagrams: 07/17/16 11:44 07/17/16 11:44 Laboratory results interpreted by me: 07/17/16 07/17/16 07/17/16 11:44 11:44 12:50 WBC 13.8 H RBC 5.79 H Hgb 15.6 H Hct 48.1 H RDW 22.3 H Absolute Neutrophils 10.0 H Est GFR (Non-Af Amer) 57 L Glucose 229 H Calcium 11.0 H Alkaline Phosphatase 138 H Total Protein 9.4 H Urine Glucose (UA) >=500 H Discharge - Discharge Clinical Impression: Abdominal pain Qualifiers: Abdominal location: upper abdomen, unspecified Qualified Code(s): R10.10 - Upper abdominal pain, unspecified Condition: Good Disposition: HOME, SELF-CARE Additional Instructions: ABDOMINAL PAIN: There are many causes of abdominal pain. Pain can mean a serious problem requiring surgery (such as appendicitis). It can also be an innocent problem that goes away on its own (such as a viral infection). Often, time must pass to determine the cause of pain. The physician does not feel that hospitalization is necessary, at present. Things may change within the next 24 hours. Call the doctor or come back for re- examination if any problems occur, such as: (1) Pain that becomes more severe, steady, or becomes concentrated in one specific area. Also, pain that is more severe with movement or coughing. (2) Vomiting that persists or becomes more frequent. (3) Blood in the vomitus, urine, or bowel movements. Blood in the stool may have a tarry or black appearance. (4) Shaking chills or fever greater than 100 degrees F. (5) The abdomen becomes more distended or swollen. (6) Bowel movements cease. (7) Failure to improve as expected. NORMAL EXAM AND WORKUP: At this time, your examination and workup show no significant abnormality. No significant abnormal physical findings are noted. All laboratory, EKG, and imaging (x-ray, CT scans, ultrasound) studies that were ordered show no significant abnormality. Although your examination and all studies that were ordered showed no significant abnormal finding, there are no examinations and no studies that are 100% accurate. There is always the possibility that some abnormality could exist and not be detected with physical examination or within the limits and capabilities of laboratory and other studies. You should return or follow up as you were instructed on your visit today for further evaluation if your symptoms do not resolve. ANTINAUSEA MEDICATION: You have been given a medication to suppress nausea and vomiting. This type of medication can be given as a shot, pill, or suppository. It will usually last for many hours. Pills and shots usually last six to eight hours, suppositories last about 12 hours. For the typical illness, only one or two doses of the medication may be necessary. Mild lightheadedness may occur. This type of medicine can cause drowsiness. Do not drive or operate dangerous machinery while under its influence. Do not mix with alcohol. See your doctor at once if you have muscle spasms or tightness, or uncontrollable motions (particularly of the neck, mouth, or jaw). Persistent vomiting or severe lightheadedness should also be evaluated by the physician. FOLLOW-UP CARE: Please keep your appointment with your pain management office for 08/03 Prescriptions: Nystatin/Dexameth/Diphen [Magic Mouthwash (Omh Formula) Susp] 5 ml PO QID PRN # 120 ml PRN Reason: Forms: Elevated Blood Pressure Referrals: CHIDI FUENTES MD [Primary Care Provider] - Follow up in 3-5 days
[2016-07-17] MEDS ORDERED: LORAZEPAM 0.5 MG TABLET PO ONE (11:35)
[2016-07-17] MEDS ORDERED: CLONIDINE HCL 0.2 MG TABLET PO ONE (11:39)
[2016-07-17 12:04] LABS: ABSOLUTE BASOPHILS # (AUTO) 0.1 10^3/uL (0.0-0.2); ABSOLUTE EOSINOPHILS # (AUTO) 0.1 10^3/uL (0.0-0.6); ABSOLUTE LYMPHOCYTES (AUTO) 2.8 10^3/uL (0.5-4.7); ABSOLUTE MONOCYTES (AUTO) 0.8 10^3/uL (0.1-1.4); BASOPHILS % (AUTO) 0.5 % (0-2); EOSINOPHILS % (AUTO) 0.9 % (0-6); HEMATOCRIT 48.1 % (36.0-47.0); HEMOGLOBIN 15.6 g/dL (12.0-15.5); HGB HCT DIFFERENCE -1.3; LYMPHOCYTES % (AUTO) 20.1 % (13-45); MEAN CORPUSCULAR HGB CONC 32.5 g/dL (32.0-36.0); MEAN CORPUSCULAR VOLUME 83 fl (80-97); MONOCYTES % (AUTO) 5.8 % (3-13); RED BLOOD COUNT 5.79 10^6/uL (3.72-5.28); RED CELL DISTRIBUTION WIDTH 22.3 % (11.5-14.0); SEGMENTED NEUTROPHILS % (AUTO) 72.7 % (42-78); WHITE BLOOD COUNT 13.8 10^3/uL (4.0-10.5)
[2016-07-17 12:23] LABS: ALANINE AMINOTRANSFERASE 33 U/L (9-52); ALBUMIN 4.8 g/dL (3.5-5.0); ALKALINE PHOSPHATASE 138 U/L (38-126); ANION GAP 14 (5-19); ASPARTATE AMINO TRANSFERASE 21 U/L (14-36); BILIRUBIN,TOTAL 0.6 mg/dL (0.2-1.3); BLOOD UREA NITROGEN 16 mg/dL (7-20); CARBON DIOXIDE 26 mmol/L (22-30); CHLORIDE 99 mmol/L (98-107); CREATININE RESULT 1.07 mg/dL (0.52-1.25); GLUCOSE 229 mg/dL (75-110); LIPASE 177.9 U/L (23-300); POTASSIUM 4.4 mmol/L (3.6-5.0); TOTAL PROTEIN 9.4 g/dL (6.3-8.2)
[2016-07-17 13:11] LABS: APPEARANCE,URINE CLEAR; BILIRUBIN,URINE NEGATIVE (NEGATIVE); GLUCOSE, URINE >=500 mg/dL (NEGATIVE); KETONES,URINE NEGATIVE (NEGATIVE); LEUKOCYTE ESTERASE,URINE NEGATIVE (NEGATIVE); NITRITE,URINE NEGATIVE (NEGATIVE); PROTEIN,URINE NEGATIVE (NEGATIVE); URINE SPECIFIC GRAVITY 1.028; UROBILINOGEN,URINE NEGATIVE mg/dL (<2.0)
[2016-07-17 13:28] VITALS: BP 110/79
--- NOTE | 2016-07-18 07:23 | PDOC PROGRESS REPORT ---
Subjective Progress Note for:: 07/18/16 Physical Exam Vital Signs: Temp Pulse Resp BP Pulse Ox 98.6 F 95 18 110/79 100 07/17/16 13:27 07/17/16 13:27 07/17/16 09:30 07/17/16 13:27 07/17/16 13:27 Intake & Output 07/17/16 07/18/16 07/19/16 06:59 06:59 06:59 Weight 54.2 kg Results Laboratory Results: 07/17/16 11:44 07/17/16 11:44 07/17/16 07/17/16 07/17/16 11:44 11:44 12:50 WBC 13.8 H RBC 5.79 H Hgb 15.6 H Hct 48.1 H MCV 83 MCH 27.0 MCHC 32.5 RDW 22.3 H Plt Count 322 Seg Neutrophils % 72.7 Lymphocytes % 20.1 Monocytes % 5.8 Eosinophils % 0.9 Basophils % 0.5 Absolute Neutrophils 10.0 H Absolute Lymphocytes 2.8 Absolute Monocytes 0.8 Absolute Eosinophils 0.1 Absolute Basophils 0.1 Sodium 139.0 Potassium 4.4 Chloride 99 Carbon Dioxide 26 Anion Gap 14 BUN 16 Creatinine 1.07 Est GFR ( Amer) > 60 Est GFR (Non-Af Amer) 57 L Glucose 229 H Calcium 11.0 H Total Bilirubin 0.6 AST 21 ALT 33 Alkaline Phosphatase 138 H Total Protein 9.4 H Albumin 4.8 Lipase 177.9 Urine Color YELLOW Urine Appearance CLEAR Urine pH 6.0 Ur Specific [place] 1.028 Urine Protein NEGATIVE Urine Glucose (UA) >=500 H Urine Ketones NEGATIVE Urine Blood NEGATIVE Urine Nitrite NEGATIVE Ur Leukocyte Esterase NEGATIVE Urine WBC (Auto) 1 Assessment & Plan - Diagnosis (1) Abdominal pain Plan: patient has not been seen in the office as an outpatient. she has seen multiple GI physicians in [facility] and here in [place]. she has actually been discharged from my practice here at [facility] I am not and have not been involved in her care for the past 2 years.
== END 2016-07-17 13:30 | disposition home or self-care (01) ==
LOC: ER 09:24
DX: G89.29 Other chronic pain (principal); R10.13 Epigastric pain; E11.43 Type 2 diabetes mellitus with diabetic autonomic (poly)neuropathy; K31.84 Gastroparesis; Z91.19 Patient's noncompliance with other medical treatment and regimen; I10 Essential (primary) hypertension; Z91.14 Patient's other noncompliance with medication regimen; Z86.14 Personal history of Methicillin resistant Staphylococcus aureus infection; Z90.49 Acquired absence of other specified parts of digestive tract; Z88.8 Allergy status to other drugs, medicaments and biological substances
CPT/HCPCS: 99284; 36415; 83690; 85025; 81025; 80053; 81001; J3490 ×3

== ENCOUNTER 2016-07-19 06:50 | Emergency (ER) | payer MEDICAID ==
[2016-07-19] MEDS ORDERED: MAG HYDROX/AL HYDROX/SIMETH SUSP 30 ML UDCUP PO ONE (09:39)
[2016-07-19] MEDS ORDERED: LIDOCAINE 2% VISCOUS SOLN 20 ML UDCUP PO ONE (09:43)
[2016-07-19] MEDS ORDERED: LORAZEPAM INJ 2 MG/1 ML VIAL IM ONE (09:45)
--- NOTE | 2016-07-19 09:46 | ER Document Report ---
ED GI/ - General Chief Complaint: Abdominal Pain Stated Complaint: ABDOMINAL PAIN Mode of Arrival: Ambulatory Information source: Patient Notes: Patient presents complaining of four-day history of upper abdominal pain. Patient states she started to develop diarrhea today. Patient denies any nausea , vomiting, or urinary symptoms. Patient denies any fever. Patient does have a history of gastroparesis and states this feels similar to when she's had this problem in the past. Patient states she seen a helper metal hanging, but her last helper metal hanging stated that he could not do anything else for her. Patient has an appointment with a different helper metal hanging specialist next week. TRAVEL OUTSIDE OF THE [place] IN LAST 30 DAYS: No - HPI Patient complains to provider of: Abdominal pain, Diarrhea. No: Vomiting Onset: Other - 4 days Timing/Duration: Persistent Quality of pain: Sharp Pain Level: 5 Location: Epigastric Vaginal bleeding (Compared to normal period): None Associated symptoms: Diarrhea. denies: Dizzy, Fever, Loss of appetite, Nausea, Urinary hesitancy, Urinary frequency, Urinary retention, Urinary urgency, Vaginal discharge, Vomiting Exacerbated by: Denies Relieved by: Denies Similar symptoms previously: Yes Recently seen / treated by doctor: No - Related Data Allergies/Adverse Reactions: metoclopramide HCl [From Reglan] Allergy (Unknown, Verified 07/17/16 09:35) Past Medical History - General Information source: Patient Last Menstrual Period: 06/27/2016 - Social History Smoking Status: Unknown if Ever Smoked Frequency of alcohol use: None Drug Abuse: None Occupation: none Lives with: Family Family History: Reviewed & Not Pertinent, DM Patient has suicidal ideation: No Patient has homicidal ideation: No - Past Medical History Cardiac Medical History: Reports: Hx Hypercholesterolemia, Hx Hypertension Endocrine Medical History: Reports: Hx Diabetes Mellitus Type 1, Hx Diabetes Mellitus Type 2 Renal/ Medical History: Reports: Hx Renal Insufficiency. Denies: Hx Peritoneal Dialysis GI Medical History: Reports: Hx Gastroesophageal Reflux Disease, Other - Gastroparesis Musculoskeltal Medical History: Reports Hx Arthritis - Hand Psychiatric Medical History: Reports: Hx Anxiety, Hx Depression Infectious Medical History: Reports: Hx MRSA Past Surgical History: Reports: Hx Cholecystectomy - Immunizations Immunizations up to date: Yes Hx Diphtheria, Pertussis, Tetanus Vaccination: Yes - unknown Hx Pneumococcal Vaccination: 05/04/10 Review of Systems - Review of Systems Constitutional: No symptoms reported. denies: Fever, Recent illness EENT: No symptoms reported Cardiovascular: No symptoms reported. denies: Chest pain, Syncope, Dizziness Respiratory: No symptoms reported. denies: Cough, Short of breath Gastrointestinal: Abdominal pain, Diarrhea. denies: Nausea, Vomiting, Poor appetite Genitourinary: No symptoms reported. denies: Dysuria, Flank pain Female Genitourinary: No symptoms reported Musculoskeletal: No symptoms reported. denies: Back pain Skin: No symptoms reported Hematologic/Lymphatic: No symptoms reported Neurological/Psychological: No symptoms reported Physical Exam - Vital signs Vitals: Temp Pulse Resp BP Pulse Ox 97.2 F 110 H 20 229/118 H 98 07/19/16 06:55 07/19/16 06:55 07/19/16 06:55 07/19/16 06:55 07/19/16 06:55 - General General appearance: Alert, Anxious In distress: Mild - HEENT Head: Normocephalic, Atraumatic Eyes: Normal Conjunctiva: Normal Nasal: Normal Mouth/Lips: Normal Mucous membranes: Normal Neck: Normal, Supple. No: Lymphadenopathy - Respiratory Respiratory status: No respiratory distress Chest status: Nontender Breath sounds: Normal Chest palpation: Normal - Cardiovascular Rhythm: Tachycardia Heart sounds: S1 appreciated, S2 appreciated Murmur: No - Abdominal Inspection: Normal Distension: No distension Bowel sounds: Normal Tenderness: Tender - Epigastric Organomegaly: No organomegaly - Back Back: Normal, Nontender. No: CVA tenderness, Vertebra tenderness - Extremities General upper extremity: Normal inspection, Normal strength General lower extremity: Normal inspection, Normal strength - Neurological Neuro grossly intact: Yes Zaina Coma Scale Eye Opening: Spontaneous [place] Coma Scale Verbal: Oriented Zaina Coma Scale Motor: Obeys Commands [place] Coma Scale Total: 15 - Psychological Associated symptoms: Anxious, Restlessness - Skin Skin Temperature: Warm Skin Moisture: Dry Skin Color: Normal Course - Re-evaluation Re-evalutation: 07/19/16 12:[address] Mace, Dr Mace to bedside for examination. Reports patient's abdomen is soft does not recommend any imaging at this time. Doesn't recommend giving IV Haldol to treat her gastroparesis symptoms. Review of patient's previous visits does show a history of chronic leukocytosis 07/19/16 12:27 RN states that patient's IV flushed without difficulty, patient states that she did not taste saline when the line was flushed and she does not suspect that her IV is in place. Patient refuses IV fluids to be administered. 07/19/16 12:29 pt's bedside monitor alarms ST elevation, additional labs and ekg ordered. Pt denies any cp or sob. Pt reports that epigastric pain is somewhat improved 07/19/16 13:09 Patient sleeping, arouses easily to voice. Patient states that abdominal pain has improved. No nausea or vomiting. Patient has taken a few sips of oral fluids at bedside. 07/19/16 13:[address] Mace 07/19/16 13:28 Patient sleeping, arouses easily to voice. Patient denies abdominal pain symptoms. Vital signs stable. Discussed planning care with patient, patient verbalized understanding and agrees with plan of care - Vital Signs Vital signs: Temp Pulse Resp BP Pulse Ox 97.2 F 110 H 21 H 109/68 100 07/19/16 06:55 07/19/16 06:55 07/19/16 13:04 07/19/16 13:04 07/19/16 13:04 - Laboratory Result Diagrams: 07/19/16 10:36 07/19/16 10:36 Laboratory results interpreted by me: 07/19/16 07/19/16 07/19/16 10:36 10:36 10:36 WBC 13.9 H RBC 5.41 H MCH 26.7 L RDW 21.3 H Absolute Neutrophils 9.6 H Glucose 199 H Calcium 10.9 H Alkaline Phosphatase 131 H Creatine Kinase 184 H Total Protein 8.9 H Urine Protein Urine Glucose (UA) Urine Ketones 07/19/16 10:45 WBC RBC MCH RDW Absolute Neutrophils Glucose Calcium Alkaline Phosphatase Creatine Kinase Total Protein Urine Protein 30 H Urine Glucose (UA) >=500 H Urine Ketones 20 H Labs- Entire Visit 07/19/16 07/19/16 07/19/16 10:36 10:36 10:36 WBC 13.9 H RBC 5.41 H Hgb 14.4 Hct 44.7 MCV 83 MCH 26.7 L MCHC 32.3 RDW 21.3 H Plt Count 324 Seg Neutrophils % 68.6 Lymphocytes % 24.1 Monocytes % 5.5 Eosinophils % 0.8 Basophils % 1.0 Absolute Neutrophils 9.6 H Absolute Lymphocytes 3.4 Absolute Monocytes 0.8 Absolute Eosinophils 0.1 Absolute Basophils 0.1 Sodium 138.7 Potassium 4.3 Chloride 100 Carbon Dioxide 23 Anion Gap 16 BUN 15 Creatinine 0.91 Est GFR ( Amer) > 60 Est GFR (Non-Af Amer) > 60 Glucose 199 H Calcium 10.9 H Total Bilirubin 0.8 Direct Bilirubin 0.0 AST 21 ALT 29 Alkaline Phosphatase 131 H Creatine Kinase CK-MB (CK-2) Troponin I Total Protein 8.9 H Albumin 4.7 Lipase 170.6 Serum HCG, Qual NEGATIVE Urine Color Urine Appearance Urine pH Ur Specific Counce Urine Protein Urine Glucose (UA) Urine Ketones Urine Blood Urine Nitrite Urine Bilirubin Urine Urobilinogen Ur Leukocyte Esterase Squamous Epi Cells Auto Urine Mucus (Auto) Urine Ascorbic Acid Urine Opiates Screen Urine Methadone Screen Ur Barbiturates Screen Ur Phencyclidine Scrn Ur Amphetamines Screen U Benzodiazepines Scrn Urine Cocaine Screen U Marijuana (THC) Screen 07/19/16 07/19/16 07/19/16 10:36 10:36 10:45 WBC RBC Hgb Hct MCV MCH MCHC RDW Plt Count Seg Neutrophils % Lymphocytes % Monocytes % Eosinophils % Basophils % Absolute Neutrophils Absolute Lymphocytes Absolute Monocytes Absolute Eosinophils Absolute Basophils Sodium Potassium Chloride Carbon Dioxide Anion Gap BUN Creatinine Est GFR ( Amer) Est GFR (Non-Af Amer) Glucose Calcium Total Bilirubin Direct Bilirubin AST ALT Alkaline Phosphatase Creatine Kinase 184 H CK-MB (CK-2) 0.53 Troponin I < 0.012 Total Protein Albumin Lipase Serum HCG, Qual Urine Color YELLOW Urine Appearance CLEAR Urine pH 6.0 Ur Specific [place] 1.027 Urine Protein 30 H Urine Glucose (UA) >=500 H Urine Ketones 20 H Urine Blood NEGATIVE Urine Nitrite NEGATIVE Urine Bilirubin NEGATIVE Urine Urobilinogen NEGATIVE Ur Leukocyte Esterase NEGATIVE Squamous Epi Cells Auto 1 Urine Mucus (Auto) RARE Urine Ascorbic Acid NEGATIVE Urine Opiates Screen Urine Methadone Screen Ur Barbiturates Screen Ur Phencyclidine Scrn Ur Amphetamines Screen U Benzodiazepines Scrn Urine Cocaine Screen U Marijuana (THC) Screen 07/19/16 10:45 WBC RBC Hgb Hct MCV MCH MCHC RDW Plt Count Seg Neutrophils % Lymphocytes % Monocytes % Eosinophils % Basophils % Absolute Neutrophils Absolute Lymphocytes Absolute Monocytes Absolute Eosinophils Absolute Basophils Sodium Potassium Chloride Carbon Dioxide Anion Gap BUN Creatinine Est GFR ( Amer) Est GFR (Non-Af Amer) Glucose Calcium Total Bilirubin Direct Bilirubin AST ALT Alkaline Phosphatase Creatine Kinase CK-MB (CK-2) Troponin I Total Protein Albumin Lipase Serum HCG, Qual Urine Color Urine Appearance Urine pH Ur Specific Counce Urine Protein Urine Glucose (UA) Urine Ketones Urine Blood Urine Nitrite Urine Bilirubin Urine Urobilinogen Ur Leukocyte Esterase Squamous Epi Cells Auto Urine Mucus (Auto) Urine Ascorbic Acid Urine Opiates Screen NEGATIVE Urine Methadone Screen NEGATIVE Ur Barbiturates Screen NEGATIVE Ur Phencyclidine Scrn NEGATIVE Ur Amphetamines Screen NEGATIVE U Benzodiazepines Scrn NEGATIVE Urine Cocaine Screen NEGATIVE U Marijuana (THC) Screen NEGATIVE Reviewed patient's laboratory tests from previous ER visits this month 07/19/16 16:36 - EKG Interpretation by Me EKG shows normal: Sinus rhythm Rate: Tachycardia When compared to previous EKG there are: No significant change Discharge - Discharge Clinical Impression: History of diabetic gastroparesis Abdominal pain Qualifiers: Abdominal location: epigastric Qualified Code(s): R10.13 - Epigastric pain Condition: Stable Disposition: HOME, SELF-CARE Instructions: Abdominal Pain ([facility]), Antispasmodics ([facility]) Additional Instructions: Return immediately for any new or worsening symptoms Followup with your primary care provider, call tomorrow to make a followup appointment Follow up with the helper metal hanging for recheck, call today to make a follow- up appointment Prescriptions: Dicyclomine HCl [Bentyl 20 mg Tablet] 20 mg PO TID PRN #12 tablet PRN Reason: Referrals: CHIDI FUENTES MD [Primary Care Provider] - Follow up tomorrow AMILCAR VYAS MD [ACTIVE STAFF] - Follow up in 3-5 days
[2016-07-19] MEDS ORDERED: DICYCLOMINE HCL INJ 20 MG/2 ML AMPULE IM ONE (10:38)
[2016-07-19 10:51] LABS: ABSOLUTE BASOPHILS # (AUTO) 0.1 10^3/uL (0.0-0.2); ABSOLUTE EOSINOPHILS # (AUTO) 0.1 10^3/uL (0.0-0.6); ABSOLUTE LYMPHOCYTES (AUTO) 3.4 10^3/uL (0.5-4.7); ABSOLUTE MONOCYTES (AUTO) 0.8 10^3/uL (0.1-1.4); ABSOLUTE NEUT (AUTO) 9.6 10^3/uL (1.7-8.2); EOSINOPHILS % (AUTO) 0.8 % (0-6); HEMATOCRIT 44.7 % (36.0-47.0); HEMOGLOBIN 14.4 g/dL (12.0-15.5); HGB HCT DIFFERENCE -1.5; LYMPHOCYTES % (AUTO) 24.1 % (13-45); MEAN CORPUSCULAR HEMOGLOBIN 26.7 pg (27.0-33.4); MEAN CORPUSCULAR HGB CONC 32.3 g/dL (32.0-36.0); MEAN CORPUSCULAR VOLUME 83 fl (80-97); MONOCYTES % (AUTO) 5.5 % (3-13); RED BLOOD COUNT 5.41 10^6/uL (3.72-5.28); RED CELL DISTRIBUTION WIDTH 21.3 % (11.5-14.0); SEGMENTED NEUTROPHILS % (AUTO) 68.6 % (42-78); WHITE BLOOD COUNT 13.9 10^3/uL (4.0-10.5)
[2016-07-19 11:07] LABS: ALANINE AMINOTRANSFERASE 29 U/L (9-52); ALBUMIN 4.7 g/dL (3.5-5.0); ALKALINE PHOSPHATASE 131 U/L (38-126); ANION GAP 16 (5-19); ASPARTATE AMINO TRANSFERASE 21 U/L (14-36); BILIRUBIN,TOTAL 0.8 mg/dL (0.2-1.3); BLOOD UREA NITROGEN 15 mg/dL (7-20); CALCIUM 10.9 mg/dL (8.4-10.2); CARBON DIOXIDE 23 mmol/L (22-30); CHLORIDE 100 mmol/L (98-107); CREATININE RESULT 0.91 mg/dL (0.52-1.25); GLUCOSE 199 mg/dL (75-110); LIPASE 170.6 U/L (23-300); POTASSIUM 4.3 mmol/L (3.6-5.0); SODIUM 138.7 mmol/L (137-145); TOTAL PROTEIN 8.9 g/dL (6.3-8.2)
[2016-07-19 11:15] LABS: APPEARANCE,URINE CLEAR; BILIRUBIN,URINE NEGATIVE (NEGATIVE); GLUCOSE, URINE >=500 mg/dL (NEGATIVE); KETONES,URINE 20 mg/dL (NEGATIVE); LEUKOCYTE ESTERASE,URINE NEGATIVE (NEGATIVE); NITRITE,URINE NEGATIVE (NEGATIVE); PROTEIN,URINE 30 mg/dL (NEGATIVE); URINE SPECIFIC GRAVITY 1.027; UROBILINOGEN,URINE NEGATIVE mg/dL (<2.0)
[2016-07-19 11:28] LABS: URINE BARBITURATES SCREEN NEGATIVE; URINE METHADONE SCREEN NEGATIVE; URINE OPIATES LOW NEGATIVE; URINE PHENCYCLIDINE SCREEN NEGATIVE
[2016-07-19] MEDS ORDERED: NORMAL SALINE 1000 ML 1,000 ML IV ONE (11:32)
[2016-07-19] MEDS ORDERED: HALOPERIDOL LACTATE INJ 5 MG/1 ML VIAL IV ONE (12:05)
[2016-07-19 12:41] LABS: ADD ON TESTING BLD IN LAB ACKNOWLEDGE
[2016-07-19 12:49] LABS: CREATINE KINASE 184 U/L (30-135)
[2016-07-19 13:02] LABS: CREATINE KINASE MB 0.53 ng/mL (<4.55)
[2016-07-19 13:04] LABS: TROPONIN I < 0.012 ng/mL
[2016-07-19 13:20] VITALS: BP 109/68
--- NOTE | 2016-07-19 15:20 | EKG REPORT ---
SEVERITY:- BORDERLINE ECG - SINUS TACHYCARDIA PROBABLE LEFT ATRIAL ABNORMALITY BORDERLINE T ABNORMALITIES, INFERIOR LEADS : Confirmed by: Buffy Guajardo MD 19-Jul-2016 15:19:57
== END 2016-07-19 13:35 | disposition home or self-care (01) ==
LOC: ER 06:50
DX: E11.43 Type 2 diabetes mellitus with diabetic autonomic (poly)neuropathy (principal); K31.84 Gastroparesis; R10.10 Upper abdominal pain, unspecified; R19.7 Diarrhea, unspecified; I10 Essential (primary) hypertension; R00.0 Tachycardia, unspecified; F41.9 Anxiety disorder, unspecified; Z88.8 Allergy status to other drugs, medicaments and biological substances; Z87.19 Personal history of other diseases of the digestive system; Z86.14 Personal history of Methicillin resistant Staphylococcus aureus infection; Z90.49 Acquired absence of other specified parts of digestive tract
CPT/HCPCS: 93005; 99284; 96372; 96361; 96374; 36415; 82553; 82550; 83690; 84703; 85025; 80053; 81001; 84484; 80307; 93010; J0500; J1630; J3490 ×2; J2060; J7030

== ENCOUNTER 2016-07-20 15:38 | Emergency (ER) | payer MEDICAID ==
[2016-07-20 15:47] VITALS: BP 218/124
--- NOTE | 2016-07-20 15:50 | ER Document Report ---
ED Medical Screen (RME) - General Stated Complaint: ABDOMINAL PAIN Mode of Arrival: Ambulatory Information source: Patient Notes: patient complains of abdominal pain for the past 6 days. Patient states that her pain is mostly to the lower abdomen. Patient denies any nausea, vomiting or dysuria. Patient does report decreased urine output. hx: Gastroparesis I have greeted and performed a rapid initial assessment of this patient. A comprehensive ED assessment and evaluation of the patient, analysis of test results and completion of the medical decision making process will be conducted by additional ED providers. TRAVEL OUTSIDE OF THE [place] IN LAST 30 DAYS: No - Related Data Allergies/Adverse Reactions: metoclopramide HCl [From Reglan] Allergy (Unknown, Verified 07/20/16 15:47) Past Medical History - Social History Family history: DM, Hypertension - Past Medical History Cardiac Medical History: Reports: Hx Hypercholesterolemia, Hx Hypertension Endocrine Medical History: Reports: Hx Diabetes Mellitus Type 1, Hx Diabetes Mellitus Type 2 Renal/ Medical History: Reports: Hx Renal Insufficiency. Denies: Hx Peritoneal Dialysis GI Medical History: Reports: Hx Gastroesophageal Reflux Disease Musculoskeltal Medical History: Reports Hx Arthritis - Hand Psychiatric Medical History: Reports: Hx Anxiety, Hx Depression Infectious Medical History: Reports: Hx MRSA Past Surgical History: Reports: Hx Cholecystectomy - Immunizations Immunizations up to date: Yes Hx Diphtheria, Pertussis, Tetanus Vaccination: Yes - unknown Physical Exam - Vital signs Vitals: Temp Pulse Resp BP Pulse Ox 98.5 F 127 H 16 218/124 H 96 07/20/16 15:46 07/20/16 15:46 07/20/16 15:46 07/20/16 15:46 07/20/16 15:46 - Abdominal Tenderness: Tender - Lower pelvic Course - Vital Signs Vital signs: Temp Pulse Resp BP Pulse Ox 98.5 F 127 H 16 218/124 H 96 07/20/16 15:46 07/20/16 15:46 07/20/16 15:46 07/20/16 15:46 07/20/16 15:46
[2016-07-20 17:00] LABS: APPEARANCE,URINE CLEAR; BILIRUBIN,URINE NEGATIVE (NEGATIVE); GLUCOSE, URINE 500 mg/dL (NEGATIVE); KETONES,URINE 25 mg/dL (NEGATIVE)
[2016-07-20 17:01] LABS: LEUKOCYTE ESTERASE,URINE NEGATIVE (NEGATIVE); NITRITE,URINE NEGATIVE (NEGATIVE); PROTEIN,URINE 30 mg/dL (NEGATIVE); URINE SPECIFIC GRAVITY 1.028; UROBILINOGEN,URINE NEGATIVE mg/dL (<2.0)
[2016-07-20 18:28] LABS: ABSOLUTE BASOPHILS # (AUTO) 0.1 10^3/uL (0.0-0.2); ABSOLUTE EOSINOPHILS # (AUTO) 0.1 10^3/uL (0.0-0.6); ABSOLUTE LYMPHOCYTES (AUTO) 3.2 10^3/uL (0.5-4.7); ABSOLUTE MONOCYTES (AUTO) 0.8 10^3/uL (0.1-1.4); ABSOLUTE NEUT (AUTO) 8.1 10^3/uL (1.7-8.2); BASOPHILS % (AUTO) 0.8 % (0-2); EOSINOPHILS % (AUTO) 0.7 % (0-6); HEMOGLOBIN 14.4 g/dL (12.0-15.5); HGB HCT DIFFERENCE 0.2; LYMPHOCYTES % (AUTO) 26.1 % (13-45); MEAN CORPUSCULAR HEMOGLOBIN 27.6 pg (27.0-33.4); MEAN CORPUSCULAR HGB CONC 33.4 g/dL (32.0-36.0); MEAN CORPUSCULAR VOLUME 83 fl (80-97); MONOCYTES % (AUTO) 6.7 % (3-13); RED BLOOD COUNT 5.21 10^6/uL (3.72-5.28); RED CELL DISTRIBUTION WIDTH 21.1 % (11.5-14.0); SEGMENTED NEUTROPHILS % (AUTO) 65.7 % (42-78); WHITE BLOOD COUNT 12.3 10^3/uL (4.0-10.5)
[2016-07-20 18:44] LABS: ALANINE AMINOTRANSFERASE 26 U/L (9-52); ALBUMIN 4.8 g/dL (3.5-5.0); ALKALINE PHOSPHATASE 128 U/L (38-126); ANION GAP 15 (5-19); ASPARTATE AMINO TRANSFERASE 27 U/L (14-36); BILIRUBIN,TOTAL 0.7 mg/dL (0.2-1.3); BLOOD UREA NITROGEN 16 mg/dL (7-20); CALCIUM 10.7 mg/dL (8.4-10.2); CARBON DIOXIDE 19 mmol/L (22-30); CHLORIDE 105 mmol/L (98-107); CREATININE RESULT 1.04 mg/dL (0.52-1.25); GLUCOSE 157 mg/dL (75-110); LIPASE 141.4 U/L (23-300); POTASSIUM 3.9 mmol/L (3.6-5.0); SODIUM 138.9 mmol/L (137-145); TOTAL PROTEIN 8.2 g/dL (6.3-8.2)
== END 2016-07-20 18:40 | disposition left against medical advice (07) ==
LOC: ER 15:38
DX: Z53.9 Procedure and treatment not carried out, unspecified reason (principal); R10.9 Unspecified abdominal pain
CPT/HCPCS: 36415; 80053; 81001; 83690; 84703; 85025; 99281

== ENCOUNTER 2016-07-21 04:58 | Emergency (ER) | payer MEDICAID ==
[2016-07-21 05:11] VITALS: BP 151/79
--- NOTE | 2016-07-21 07:48 | ER Document Report ---
Addendum entered and electronically signed by WASHINGTON ROBIN NP 07/21/16 08:03: Discharge - Discharge Clinical Impression: Gastroparesis due to DM Abdominal pain Qualifiers: Abdominal location: generalized Qualified Code(s): R10.84 - Generalized abdominal pain Condition: Stable Disposition: HOME, SELF-CARE Instructions: Abdominal Pain ([facility]), Antinausea Medication ([facility]) Additional Instructions: rest and hydrate diet as tolerated take lance as prescribed follow up with barrel maker on saturday as scheduled Referrals: CHIDI FUENTES MD [Primary Care Provider] - Follow up as needed Original Note: ED GI/ - General Chief Complaint: Abdominal Pain Stated Complaint: ABDOMINAL PAIN Notes: pt is a 41 yo female well known to ER. pt has hx/o diabetic gastroparesis with chronic abdominal pain. pt has been to ED every day this week with same complaints of abdominal pain. Today pt is c/o same generalized abdominal pain. She denies any change in character or intensity of the pain. She reports last time she vomited was yesterday. She also tells me she has an appointment with a new barrel maker in [place] named Dr Augustin. TRAVEL OUTSIDE OF THE [place] IN LAST 30 DAYS: No - HPI Patient complains to provider of: Abdominal pain Onset: Other - chronic Timing/Duration: Constant Pain Level: 4 Location: Epigastric, RLQ Associated symptoms: Vomiting. denies: Blood in emesis, Blood in stool, Dysuria , Fever Exacerbated by: Denies Relieved by: Denies Similar symptoms previously: Yes Recently seen / treated by doctor: Yes - daily in ER x 1 week, PCM Dr Fuentes - Related Data Allergies/Adverse Reactions: metoclopramide HCl [From Reglan] Allergy (Unknown, Verified 07/21/16 05:02) Past Medical History - Social History Smoking Status: Unknown if Ever Smoked Frequency of alcohol use: None Drug Abuse: None Lives with: Family Family History: Reviewed & Not Pertinent, DM - Past Medical History Cardiac Medical History: Reports: Hx Hypercholesterolemia, Hx Hypertension Endocrine Medical History: Reports: Hx Diabetes Mellitus Type 1, Hx Diabetes Mellitus Type 2 Renal/ Medical History: Reports: Hx Renal Insufficiency. Denies: Hx Peritoneal Dialysis GI Medical History: Reports: Hx Gastroesophageal Reflux Disease Musculoskeltal Medical History: Reports Hx Arthritis - Hand Psychiatric Medical History: Reports: Hx Anxiety, Hx Depression Infectious Medical History: Reports: Hx MRSA Past Surgical History: Reports: Hx Cholecystectomy - Immunizations Immunizations up to date: Yes Hx Diphtheria, Pertussis, Tetanus Vaccination: Yes - unknown Hx Pneumococcal Vaccination: 05/04/10 Review of Systems - Review of Systems Constitutional: Malaise EENT: No symptoms reported Cardiovascular: No symptoms reported Respiratory: No symptoms reported Gastrointestinal: Abdominal pain, Vomiting Genitourinary: No symptoms reported Female Genitourinary: No symptoms reported Musculoskeletal: No symptoms reported Skin: No symptoms reported Hematologic/Lymphatic: No symptoms reported Neurological/Psychological: No symptoms reported -: Yes All other systems reviewed and negative Physical Exam - Vital signs Vitals: Temp Pulse Resp BP Pulse Ox 98.2 F 110 H 22 H 151/79 H 98 07/21/16 05:06 07/21/16 05:06 07/21/16 05:06 07/21/16 05:06 07/21/16 05:06 Interpretation: Normal - General General appearance: Appears well, Alert In distress: Mild - upon entering the room pt curled in position, rocking. while talking with patient, she relaxed, layed supine - HEENT Head: Normocephalic, Atraumatic Eyes: Normal Pupils: PERRL - Respiratory Respiratory status: No respiratory distress Chest status: Nontender Breath sounds: Normal Chest palpation: Normal - Cardiovascular Rhythm: Regular Heart sounds: Normal auscultation Murmur: No - Abdominal Inspection: Normal Distension: No distension Bowel sounds: Normal Tenderness: Tender - soft, generalized tenderness with guarding, no rebound. Organomegaly: No organomegaly - Back Back: Normal, Nontender - Extremities General upper extremity: Normal inspection, Nontender, Normal color, Normal ROM , Normal temperature General lower extremity: Normal inspection, Nontender, Normal color, Normal ROM , Normal temperature, Normal weight bearing. No: Ander's sign - Neurological Neuro grossly intact: Yes Cognition: Normal Orientation: AAOx4 Zaina Coma Scale Eye Opening: Spontaneous [place] Coma Scale Verbal: Oriented Zaina Coma Scale Motor: Obeys Commands Zaina Coma Scale Total: 15 Speech: Normal Motor strength normal: LUE, RUE, LLE, RLE Sensory: Normal - Psychological Associated symptoms: Normal affect, Normal mood - Skin Skin Temperature: Warm Skin Moisture: Dry Skin Color: Normal Course - Re-evaluation Re-evalutation: 07/21/16 07:54 pt is mildly tachycardic and hypertensive, but has hx of both. pt does not appear to be in acute distress. no s/s dehydration. abdomen is soft, but with generalized tenderness. no concerns for acute abdomen or sepsis. pt telling me she just wants the pain to go away. we reviewed her last 4 ER visits this week. she tells me that there is nothing new or different with the abdominal pain she is complaining about today. She has not vomited since yesterday, she is afebrile, her abdomen is soft. no imaging is indicated today. I offered hydration with IVF fluids, but patient declines. She tells me she has an appointment [facility] in [place] on Saturday. I offered refill of anti- nausea medication to get her through the weekend until she could see barrel maker. She declines. Pt is stable for discharge and follow up with GI. - Vital Signs Vital signs: Temp Pulse Resp BP Pulse Ox 98.2 F 110 H 22 H 151/79 H 98 07/21/16 05:06 07/21/16 05:06 07/21/16 05:06 07/21/16 05:06 07/21/16 05:06 Discharge - Discharge Clinical Impression: Gastroparesis due to DM Abdominal pain Qualifiers: Abdominal location: generalized Qualified Code(s): R10.84 - Generalized abdominal pain Condition: Stable Disposition: HOME, SELF-CARE Instructions: Abdominal Pain ([facility]), Antinausea Medication ([facility]) Additional Instructions: rest and hydrate diet as tolerated take lance as prescribed follow up with barrel maker on saturday as scheduled
== END 2016-07-21 07:55 | disposition home or self-care (01) ==
LOC: ER 04:58
DX: E11.43 Type 2 diabetes mellitus with diabetic autonomic (poly)neuropathy (principal); R10.84 Generalized abdominal pain
CPT/HCPCS: 99283

== ENCOUNTER 2016-12-29 18:53 | Inpatient (IN) | payer MEDICAID ==
--- NOTE | 2016-12-29 19:49 | ER Document Report ---
ED General - General Chief Complaint: Abdominal Pain Stated Complaint: ABDOMINAL PAIN Time Seen by Provider: 12/29/16 19:33 Cannot obtain history due to: Uncooperative Notes: Patient is a 41-year-old female with a past with history of insulin-dependent diabetes, gastroparesis, chronic abdominal pain who presents with complaints of generalized abdominal pain and vomiting. Is very difficult to ascertain a history from the patient initially as she is apparently refusing answer questions at the time of my initial assessment although does follow commands in all extremities with encouragement. TRAVEL OUTSIDE OF THE [place] IN LAST 30 DAYS: No - Related Data Allergies/Adverse Reactions: metoclopramide HCl [From Reglan] Allergy (Unknown, Verified 07/21/16 05:02) Past Medical History - General Information source: Patient - Social History Smoking Status: Never Smoker Chew tobacco use (# tins/day): No Frequency of alcohol use: None Drug Abuse: None Family History: Reviewed & Not Pertinent, DM Patient has suicidal ideation: No Patient has homicidal ideation: No - Past Medical History Cardiac Medical History: Reports: Hx Hypercholesterolemia, Hx Hypertension Endocrine Medical History: Reports: Hx Diabetes Mellitus Type 1, Hx Diabetes Mellitus Type 2 Renal/ Medical History: Reports: Hx Renal Insufficiency. Denies: Hx Peritoneal Dialysis GI Medical History: Reports: Hx Gastroesophageal Reflux Disease Musculoskeltal Medical History: Reports Hx Arthritis - Hand Psychiatric Medical History: Reports: Hx Anxiety, Hx Depression Infectious Medical History: Reports: Hx MRSA Past Surgical History: Reports: Hx Cholecystectomy - Immunizations Immunizations up to date: Yes Hx Diphtheria, Pertussis, Tetanus Vaccination: Yes - unknown Hx Pneumococcal Vaccination: 05/04/10 Review of Systems - Review of Systems -: Yes ROS unobtainable due to patient's medical condition Physical Exam - Vital signs Vitals: Temp Pulse Resp BP Pulse Ox 98.6 F 126 H 30 H 140/96 H 100 12/29/16 18:58 12/29/16 18:58 12/29/16 18:58 12/29/16 18:58 12/29/16 18:58 Interpretation: Tachycardic, Tachypneic Notes: PHYSICAL EXAMINATION: GENERAL: Lying in the bed, moaning, eyes closed. HEAD: Atraumatic, normocephalic. EYES: Pupils equal round and reactive to light, extraocular movements intact, sclera anicteric, conjunctiva are normal. ENT: nares patent, oropharynx clear without exudates. Dry mucous membranes. NECK: Normal range of motion, supple without lymphadenopathy LUNGS: Breath sounds clear to auscultation bilaterally and equal. No wheezes rales or rhonchi. HEART: Regular tachycardia without murmurs ABDOMEN: Soft, diffuse mild tenderness with palpation without rebound or guarding. Bowel sounds present EXTREMITIES: Normal range of motion, no pitting or edema. No cyanosis. NEUROLOGICAL: No focal neurological deficits. Moves all extremities spontaneously and on command. PSYCH: Refusing to answer most of my questions. Appears to be feigning cataplexy SKIN: Warm, Dry, normal turgor, no rashes or lesions noted. Course - Re-evaluation Re-evalutation: 12/29/16 19:48 Patient presents for the 10th time this year for diffuse abdominal pain. Went into the room the patient has apparently become more towards cataplectic, refusing to answer questions but does follow commands in all extremities. She moans unintelligibly with palpation of the abdomen. Review of prior charts demonstrates the patient frequently presents in this manner. Patient does respond to noxious during placement of IV. She has had 15 CT scans of her abdomen and pelvis since 2013 none of which have revealed any etiology to her abdominal pain. Nursing staff the room notes that patient was initially rocking back and forth in the bed again typical of her presentation and then became almost cataplectic. Will obtain basic laboratories, will not provide any IV analgesia other than Toradol, IV fluids and reassess 12/29/16 20:51 Patient is now awake, screaming, flailing around in the bed. She is asking for narcotic pain medications and I have informed her she will not receive these here in the emergency department as it will worsen her underlying gastroparesis. I have again examined the patient which is unchanged. She has had 15 CTs of her abdomen and pelvis since 2013 that continued radiographic imaging of her abdomen increases her risk of malignancy. Will provide IV haloperidol and reassess 12/29/16 21:26 Patient's laboratories do demonstrate that she is in diabetic ketoacidosis with a bicarb of only 15, ketones in the urine and hyperglycemia 400. Patient's potassium is 4.7. She has received a total of 2 L of fluid at this time. Will begin insulin infusion as well as potassium supplementation. Given that she is in DKA she will require admission to the hospital. I discussed this with the patient and she is currently calm and sleeping after receiving IV haloperidol which has worked in the past for her chronic abdominal pain. 12/29/16 21:48 Patient's venous blood gas does not make sense in the context of her CMP results which show a bicarb of only 15. However patient's venous blood gas is actually alkalotic although it appears to be a respiratory alkalosis as she has hyperventilated and her PCO2 is quite low. I discussed the lab stating that they could not obtain a chloride but that the bicarb should still be accurate. They will come and redraw a additional basic metabolic panel. 12/29/16 22:57 Repeat laboratories after administration of total 2 L of IV fluid, beginning an insulin infusion for the past 1 hour does show somewhat improved laboratories although patient remains with a mildly decreased bicarbonate, continued hyper glycemia consistent with mild diabetic ketoacidosis. I discussed with Dr. Najera who will admit. - Vital Signs Vital signs: Temp Pulse Resp BP Pulse Ox 98.7 F 126 H 16 182/89 H 100 12/30/16 03:45 12/30/16 03:45 12/30/16 03:45 12/30/16 03:45 12/30/16 03:45 - Laboratory Result Diagrams: 12/29/16 20:24 12/30/16 01:56 Laboratory results interpreted by me: 12/29/16 12/29/16 12/29/16 19:42 20:24 20:24 WBC 24.2 H Seg Neuts % (Manual) 90 H Band Neutrophils % 1 L Lymphocytes % (Manual) 4 L Abs Neuts (Manual) 22.0 H VBG pH VBG pCO2 VBG HCO3 Carbon Dioxide 15 L Anion Gap -47 L Glucose 400 H* POC Glucose Calcium 11.1 H AST 55 H Alkaline Phosphatase 146 H Total Protein 10.8 H Albumin 5.5 H Urine Protein 30 H Urine Glucose (UA) >=500 H Urine Ketones 20 H 12/29/16 12/29/16 12/29/16 20:24 21:57 22:25 WBC Seg Neuts % (Manual) Band Neutrophils % Lymphocytes % (Manual) Abs Neuts (Manual) VBG pH 7.49 H VBG pCO2 24.8 L VBG HCO3 18.3 L Carbon Dioxide 19 L Anion Gap Glucose 340 H POC Glucose 289 H Calcium AST Alkaline Phosphatase Total Protein Albumin Urine Protein Urine Glucose (UA) Urine Ketones 12/29/16 23:20 WBC Seg Neuts % (Manual) Band Neutrophils % Lymphocytes % (Manual) Abs Neuts (Manual) VBG pH VBG pCO2 VBG HCO3 Carbon Dioxide Anion Gap Glucose POC Glucose 225 H Calcium AST Alkaline Phosphatase Total Protein Albumin Urine Protein Urine Glucose (UA) Urine Ketones Critical Care Note - Critical Care Note Total time excluding time spent on procedures (mins): 40 Comments: Critical care time spent obtaining history from patient or surrogate, discussions with consultants, development of treatment plan with patient or surrogate, evaluation of patient's response to treatment, examination of patient , ordering and performing treatments and interventions, ordering and review of laboratory studies, re-evaluation of patient's condition, ordering and review of radiographic studies and review of old charts Discharge - Discharge Clinical Impression: Diabetic gastroparesis associated with type 1 diabetes mellitus, Chronic generalized abdominal pain DKA (diabetic ketoacidoses) Qualifiers: Diabetes mellitus type: type 1 Diabetes mellitus complication detail: without coma Qualified Code(s): E10.10 - Type 1 diabetes mellitus with ketoacidosis without coma Condition: Fair Disposition: ADMITTED INPATIENT Admitting Provider: Hospitalist - [facility] Admitted: Telemetry
[2016-12-29] MEDS ORDERED: ONDANSETRON HCL INJ/PF 4 MG/2 ML SDV IV ONE (19:52)
[2016-12-29] MEDS ORDERED: NORMAL SALINE 1000 ML 1,000 ML IV ONE ×2 (19:52→21:24)
[2016-12-29] MEDS ORDERED: KETOROLAC TROMETHAMINE INJ/PF 30 MG/1 ML SDV IV ONE (19:52)
[2016-12-29 19:55] LABS: APPEARANCE,URINE CLEAR; BILIRUBIN,URINE NEGATIVE (NEGATIVE); GLUCOSE, URINE >=500 mg/dL (NEGATIVE); KETONES,URINE 20 mg/dL (NEGATIVE); LEUKOCYTE ESTERASE,URINE NEGATIVE (NEGATIVE); NITRITE,URINE NEGATIVE (NEGATIVE); PROTEIN,URINE 30 mg/dL (NEGATIVE); URINE SPECIFIC GRAVITY 1.021; UROBILINOGEN,URINE NEGATIVE mg/dL (<2.0)
[2016-12-29] MEDS ORDERED: HALOPERIDOL LACTATE INJ 5 MG/1 ML VIAL IV ONE ×2 (20:50→23:55)
[2016-12-29 20:52] LABS: HEMATOCRIT 44.8 % (36.0-47.0); HEMOGLOBIN 15.2 g/dL (12.0-15.5); HGB HCT DIFFERENCE 0.8; MEAN CORPUSCULAR HEMOGLOBIN 29.4 pg (27.0-33.4); MEAN CORPUSCULAR VOLUME 86 fl (80-97); RED BLOOD COUNT 5.18 10^6/uL (3.72-5.28); RED CELL DISTRIBUTION WIDTH 12.5 % (11.5-14.0); WHITE BLOOD COUNT 24.2 10^3/uL (4.0-10.5)
[2016-12-29 20:53] LABS: ALANINE AMINOTRANSFERASE 26 U/L (9-52); ALBUMIN 5.5 g/dL (3.5-5.0); ALKALINE PHOSPHATASE 146 U/L (38-126); ASPARTATE AMINO TRANSFERASE 55 U/L (14-36); BILIRUBIN,DIRECT 0.4 mg/dL (0.0-0.4); BILIRUBIN,TOTAL 0.8 mg/dL (0.2-1.3); BLOOD UREA NITROGEN 15 mg/dL (7-20); CALCIUM 11.1 mg/dL (8.4-10.2); CARBON DIOXIDE 15 mmol/L (22-30); CREATININE RESULT 1.02 mg/dL (0.52-1.25); LIPASE 68.6 U/L (23-300); POTASSIUM 4.7 mmol/L (3.6-5.0); SODIUM 142.6 mmol/L (137-145); TOTAL PROTEIN 10.8 g/dL (6.3-8.2)
[2016-12-29 20:55] LABS: BAND NEUTROPHILS % (MANUAL) 1 % (3-5); BASOPHILS % (MANUAL) 0 % (0-2); EOSINOPHILS % (MANUAL) 0 % (0-6); LYMPHOCYTES % (MANUAL) 4 % (13-45); PLATELET CLUMPS PRESENT; TOTAL CELLS COUNTED 100; TOXIC VACUOLATION PRESENT
[2016-12-29] MEDS ORDERED: HALOPERIDOL LACTATE INJ 5 MG/1 ML VIAL ONE (20:55)
[2016-12-29 20:58] LABS: BURR CELLS SLIGHT; POIKILOCYTOSIS SLIGHT; POLYCHROMASIA SLIGHT; TARGET CELLS SLIGHT
[2016-12-29 21:25] LABS: ANION GAP -47 (5-19)
[2016-12-29] MEDS ORDERED: INSULIN REG, HUMAN 100 UNIT/ML 3 ML VIAL (PYX) IV ONE (21:25)
[2016-12-29] MEDS ORDERED: POTASSI CL 20 MEQ/50 ML RIDER 50 ML IV ONE (21:25)
[2016-12-29 21:29] LABS: VENOUS BLOOD HCO3 18.3 mmol/L (20-32); VENOUS BLOOD PCO2 24.8 mmHg (35-63); VENOUS BLOOD PH 7.49 (7.30-7.42)
[2016-12-29 22:34] LABS: VENOUS BLOOD BASE EXCESS -2.7 mmol/L; VENOUS BLOOD HCO3 21.6 mmol/L (20-32); VENOUS BLOOD PCO2 36.1 mmHg (35-63); VENOUS BLOOD PH 7.4 (7.30-7.42)
[2016-12-29 22:48] LABS: ANION GAP 19 (5-19); BLOOD UREA NITROGEN 17 mg/dL (7-20); CALCIUM 10.1 mg/dL (8.4-10.2); CARBON DIOXIDE 19 mmol/L (22-30); CHLORIDE 103 mmol/L (98-107); CREATININE RESULT 1.01 mg/dL (0.52-1.25); GLUCOSE 340 mg/dL (75-110); POTASSIUM 4.3 mmol/L (3.6-5.0); SODIUM 141.4 mmol/L (137-145)
[2016-12-29] MEDS ORDERED: ACETAMINOPHEN 325 MG TABLET PO PRN (22:58)
[2016-12-29] MEDS ORDERED: GLUCAGON,HUMAN RECOMB 1 MG INJ IM PRN (22:58)
[2016-12-29] MEDS ORDERED: MAGNESIUM HYDROXIDE SUSP 30 ML UDCUP PO PRN (22:58)
[2016-12-29] MEDS ORDERED: DEXTROSE 40% GEL 15 GM TUBE PO PRN ×2 (22:58)
[2016-12-29] MEDS ORDERED: DEXTROSE 50%-WATER 25 GM/50 ML DISP.SYRIN IV PRN ×2 (22:58)
[2016-12-29 23:17] LABS: MAGNESIUM 1.7 mg/dL (1.6-2.3); PHOSPHORUS 3.4 mg/dL (2.5-4.5)
[2016-12-30] MEDS ORDERED: INSULIN GLARGINE,HUM.REC.ANLOG 300 UNIT/3 ML INSULN.PEN SUBCUT ONE (00:15)
[2016-12-30] MEDS ORDERED: CLONIDINE 0.2 MG/24 HR PATCH.TDWK TD ONE (00:30)
[2016-12-30 02:27] LABS: ANION GAP 19 (5-19); BLOOD UREA NITROGEN 16 mg/dL (7-20); CALCIUM 10.4 mg/dL (8.4-10.2); CARBON DIOXIDE 18 mmol/L (22-30); CHLORIDE 108 mmol/L (98-107); CREATININE RESULT 1.03 mg/dL (0.52-1.25); GLUCOSE 262 mg/dL (75-110); POTASSIUM 4.7 mmol/L (3.6-5.0); SODIUM 144.5 mmol/L (137-145)
[2016-12-30] MEDS ORDERED: CLONIDINE 0.2 MG/24 HR PATCH.TDWK ONE (02:29)
[2016-12-30] MEDS ORDERED: INSULIN GLARGINE,HUM.REC.ANLOG 1,000 UNIT/10 ML UNIT SUBCUT ONE (02:36)
[2016-12-30] MEDS: NORMAL SALINE 1000 ML 1,000 ML IV SCH ×3 (03:20→09:52)
[2016-12-30] MEDS: PROMETHAZINE HCL 25 MG TABLET PO PRN ×2 (03:27→12:48)
[2016-12-30] MEDS ORDERED: HYDRALAZINE HCL INJ/PF 20 MG/1 ML SDV IV PRN (04:02)
[2016-12-30] MEDS ORDERED: HYDRALAZINE HCL INJ/PF 20 MG/1 ML SDV ONE (04:32)
[2016-12-30] MEDS: HEPARIN SOD (PORCINE) 5,000 UNIT/ML 1 ML SYRINGE SUBCUT SCH ×3 (05:22→21:45)
[2016-12-30] MEDS ORDERED: HALOPERIDOL LACTATE INJ 5 MG/1 ML VIAL IV SCH (06:00)
[2016-12-30] MEDS: INSULIN LISPRO 100 UNIT/ML 3 ML VIAL SUBCUT PRN ×2 (06:15→19:00)
--- NOTE | 2016-12-30 06:22 | PDOC H&P ---
History of Present Illness Admission Date/PCP: 12/29/16 22:58 Patient complains of: Hyperglycemia, nausea vomiting History of Present Illness: [facility] is a 41 year old female with a past medical history of insulin-dependent, bipolar disorder, irritable bowel syndrome, cyclic vomiting, chronic pain and noncompliant. Patient been her usual state of health until approximately 8 hours prior to presentation with polyuria polydipsia and uncontrolled hyperglycemia. She understands her insulin regiment but does not appear to institute sliding scale appropriately. In the emergency room she is agitated and adamant for narcotic medications or abdominal pain. She is had 16 CT abdomen evaluations of her pain and recent history without finding. She received Haldol, insulin and IV fluids with improvement, she is referred to the hospital for admission. Past Medical History Cardiac Medical History: Reports: Hyperlipidema, Hypertension Endocrine Medical History: Reports: Diabetes Mellitus Type 1, Diabetes Mellitus Type 2 GI Medical History: Reports: Gastroesophageal Reflux Disease, Other - Irritable bowel syndrome Musculoskeltal Medical History: Reports: Arthritis - Hand Psychiatric Medical History: Reports: Bipolar Disorder, Depression Hematology: Reports: Anemia Infectious Medical History: Reports: Methicillin-Resistant Staph Aureus Past Surgical History Past Surgical History: Reports: Cholecystectomy Social History Information Source: Patient, Emergency Med Personnel, [facility] Records Smoking Status: Never Smoker Frequency of Alcohol Use: None Hx Recreational Drug Use: No Drugs: None Hx Prescription Drug Abuse: No - Advance Directive Resuscitation Status: Full Code Family History Family History: DM Parental Family History Reviewed: Yes Children Family History Reviewed: Yes Sibling(s) Family History Reviewed.: Yes Medication/Allergy Home Medications: Insulin Glargine,Hum.rec.anlog [Lantus Insulin 100 Unit/mL] 15 unit SUBCUT QHS 01/04/15 Atorvastatin Calcium [Lipitor 40 mg Tablet] 40 mg PO QHS 01/17/15 Amlodipine Besylate [Norvasc 10 mg Tablet] 10 mg PO DAILY #30 tablet 02/23/15 Insulin Regular, Human [Humulin R (Reg) Insulin 100 unit/mL] See Protocol SUBCUT AC 03/12/15 Lisinopril [Prinivil 10 mg Tablet] 10 mg PO DAILY #30 tablet 03/17/15 Ondansetron [Zofran Odt 4 mg Tablet] 1 - 2 tab PO Q4H PRN #15 tab.rapdis Pioglitazone HCl [Actos 15 mg Tablet] 1 tab PO DAILY 05/28/15 Promethazine HCl [Phenergan 25 mg Supp.rect] 25 mg MS Q4HP PRN #20 supp.rect Cephalexin Monohydrate [Keflex 500 mg Capsule] 500 mg PO Q12 #60 capsule Docusate Sodium [Colace 100 mg Capsule] 100 mg PO BID #60 capsule 07/28/15 Hydroxyzine Pamoate [Vistaril 25 mg Capsule] 25 mg PO Q6HP PRN #30 capsule 07/27 Venlafaxine HCl ER [Effexor Xr 37.5 mg Cap.sr] 37.5 mg PO BID #30 cap.sr.24h 08/09 Diphenhydramine HCl [Benadryl] 25 mg PO Q4 PRN #30 capsule 08/02/15 Promethazine HCl 25 mg PO Q8 PRN #30 tablet 08/02/15 Promethazine HCl 25 mg RC Q8 PRN #12 supp.rect 08/02/15 Dicyclomine HCl [Bentyl 20 mg Tablet] 20 mg PO QID #40 tablet 08/03/15 Ciprofloxacin HCl [Cipro 500 mg Tablet] 500 mg PO BID #10 tablet 08/30/15 Promethazine HCl [Phenergan 25 mg Supp.rect] 1 supp MS Q6H #20 supp.rect Promethazine HCl [Phenergan 25 mg Tablet] 1 - 2 tab PO Q6H PRN #20 tablet Lorazepam [Ativan 1 mg Tablet] 1 mg PO Q4 PRN #12 tab 11/04/15 Nitrofurantoin/Nitrofuran Mac [Macrobid 100 mg Capsule] 1 tab PO BID #20 capsule 11/04/15 Ondansetron [Zofran Odt 4 mg Tablet] 1 - 2 tab PO Q4H PRN #15 tab.rapdis Ondansetron [Zofran Odt] 8 mg PO QID #15 tab.rapdis 11/25/15 Diphenhydramine HCl [Benadryl] 25 mg PO Q6H PRN #15 capsule 12/09/15 Ondansetron [Zofran Odt 4 mg Tablet] 1 tab PO Q4H PRN #15 tab.rapdis 12/09/15 Sulfamethoxazole/Trimethoprim [Bactrim Ds Tablet] 1 tab PO BID 7 Days 12/09/15 Promethazine HCl [Phenergan 25 mg Tablet] 1 tab PO Q6H PRN #15 tablet 03/10/16 Nitrofurantoin/Nitrofuran Mac [Macrobid 100 mg Capsule] 1 tab PO BID #20 capsule 03/28/16 Clonidine [Catapres-Tts 2 (0.2 mg/24 Hr) Transderm Ptc] 1 each TD ASDIR #4 patch.tdwk 03/29/16 Nitrofurantoin 100 mg PO QID 10 Days 03/29/16 Dicyclomine HCl [Bentyl 20 mg Tablet] 20 mg PO QID #40 tablet 06/15/16 Promethazine HCl [Phenergan 25 mg Tablet] 1 - 2 tab PO Q6H PRN #20 tablet Ondansetron [Zofran Odt 4 mg Tablet] 1 - 2 tab PO Q4H PRN #15 tab.rapdis Promethazine HCl [Phenergan 25 mg Supp.rect] 1 supp MS Q6H #20 supp.rect Promethazine HCl [Phenergan 25 mg Tablet] 1 - 2 tab PO Q6H PRN #20 tablet Nystatin/Dexameth/Diphen [Magic Mouthwash ([facility] Formula) Susp] 5 ml PO QID PRN # 120 ml 07/17/16 Dicyclomine HCl [Bentyl 20 mg Tablet] 20 mg PO TID PRN #12 tablet 07/19/16 Allergies/Adverse Reactions: metoclopramide HCl [From Reglan] Allergy (Unknown, Verified 07/21/16 05:02) Review of Systems Constitutional: ABSENT: chills, fever(s), headache(s), weight gain, weight loss Eyes: ABSENT: visual disturbances Ears: ABSENT: hearing changes Cardiovascular: ABSENT: chest pain, dyspnea on exertion, edema, orthropnea, palpitations Respiratory: ABSENT: cough, hemoptysis Gastrointestinal: ABSENT: abdominal pain, constipation, diarrhea, hematemesis, hematochezia, nausea, vomiting Genitourinary: ABSENT: dysuria, hematuria Musculoskeletal: ABSENT: joint swelling Integumentary: ABSENT: rash, wounds Neurological: ABSENT: abnormal gait, abnormal speech, confusion, dizziness, focal weakness, syncope Psychiatric: ABSENT: anxiety, depression, homidical ideation, suicidal ideation Endocrine: ABSENT: cold intolerance, heat intolerance, polydipsia, polyuria Hematologic/Lymphatic: ABSENT: easy bleeding, easy bruising Physical Exam Vital Signs: Temp Pulse Resp BP Pulse Ox 98.7 F 126 H 16 182/89 H 100 12/30/16 03:45 12/30/16 03:45 12/30/16 03:45 12/30/16 03:45 12/30/16 03:45 General appearance: PRESENT: cooperative, disheveled, mild distress Head exam: PRESENT: atraumatic, normocephalic Eye exam: PRESENT: conjunctiva pink, EOMI, PERRLA. ABSENT: scleral icterus Ear exam: PRESENT: normal external ear exam Mouth exam: PRESENT: moist, tongue midline Neck exam: ABSENT: carotid bruit, JVD, lymphadenopathy, thyromegaly Respiratory exam: PRESENT: clear to auscultation bernardo, tachypnea. ABSENT: rales , rhonchi, wheezes Cardiovascular exam: PRESENT: RRR. ABSENT: diastolic murmur, rubs, systolic murmur Pulses: PRESENT: normal dorsalis pedis pul GI/Abdominal exam: PRESENT: normal bowel sounds, soft, tenderness - Diffuse without guarding. ABSENT: distended, guarding, mass, organolmegaly, rebound Rectal exam: PRESENT: deferred Extremities exam: PRESENT: full ROM. ABSENT: calf tenderness, clubbing, pedal edema Neurological exam: PRESENT: alert, awake, oriented to person, oriented to place , oriented to time, oriented to situation, CN II-XII grossly intact. ABSENT: motor sensory deficit Psychiatric exam: PRESENT: agitated, anxious, unusual affect Skin exam: PRESENT: dry, intact, warm. ABSENT: cyanosis, rash Results Laboratory Results: 12/30/16 01:56 12/30/16 01:56 Sodium 144.5 Potassium 4.7 Chloride 108 H Carbon Dioxide 18 L Anion Gap 19 BUN 16 Creatinine 1.03 Est GFR ( Amer) > 60 Est GFR (Non-Af Amer) 59 L Glucose 262 H Calcium 10.4 H Assessment & Plan - Diagnosis (1) DKA (diabetic ketoacidoses) Qualifiers: Diabetes mellitus type: type 1 Diabetes mellitus complication detail: without coma Qualified Code(s): E10.10 - Type 1 diabetes mellitus with ketoacidosis without coma Is this a current diagnosis for this admission?: YesPlan: IMCU admission, n.p.o. IV fluids IV insulin serial chemistries for electrolyte repletion, education. (2) Chronic generalized abdominal pain Is this a current diagnosis for this admission?: YesPlan: Nonnarcotic symptomatic management, correction of the underlying acidotic state , education (3) Bipolar 1 disorder, depressed, moderate Is this a current diagnosis for this admission?: YesPlan: Resume outpatient regiment. As needed Haldol IV - Time Time Spent: 50 to 70 Minutes - Inpatient Certification Medical Necessity: Need Close Monitoring Due to Risk of Patient Decompensation
[2016-12-30 07:36] LABS: HEMATOCRIT 38.5 % (36.0-47.0); HEMOGLOBIN 13.2 g/dL (12.0-15.5); HGB HCT DIFFERENCE 1.1; MEAN CORPUSCULAR HEMOGLOBIN 29.7 pg (27.0-33.4); MEAN CORPUSCULAR HGB CONC 34.3 g/dL (32.0-36.0); MEAN CORPUSCULAR VOLUME 87 fl (80-97); RED BLOOD COUNT 4.44 10^6/uL (3.72-5.28); RED CELL DISTRIBUTION WIDTH 12.7 % (11.5-14.0); WHITE BLOOD COUNT 20.9 10^3/uL (4.0-10.5)
[2016-12-30 07:46] LABS: ANION GAP 19 (5-19); BLOOD UREA NITROGEN 16 mg/dL (7-20); CALCIUM 10.1 mg/dL (8.4-10.2); CARBON DIOXIDE 15 mmol/L (22-30); CHLORIDE 108 mmol/L (98-107); CREATININE RESULT 0.92 mg/dL (0.52-1.25); GLUCOSE 268 mg/dL (75-110); POTASSIUM 4.5 mmol/L (3.6-5.0); SODIUM 141.8 mmol/L (137-145)
[2016-12-30 08:15] LABS: BAND NEUTROPHILS % (MANUAL) 1 % (3-5); BASOPHILS % (MANUAL) 0 % (0-2); EOSINOPHILS % (MANUAL) 0 % (0-6); HYPOCHROMASIA SLIGHT; LYMPHOCYTES % (MANUAL) 2 % (13-45); POLYCHROMASIA SLIGHT; TOTAL CELLS COUNTED 100
[2016-12-30 08:16] LABS: TOXIC GRANULATION SLIGHT; TOXIC VACUOLATION PRESENT
--- NOTE | 2016-12-30 08:24 | Progress Note ---
Provider Note Provider Note: ROBY MIRANDA Search Criteria: Last Name 'Roby' and First Name 'Kasey' and = ' and Request Period = '07/03/14' to '12/30/16' - 2 out of 2 Recipients Selected. Fill Date Product, Str, Form Qty Days Pt ID Prescriber Written RX# N/R* Pharm MED+ ------ ---- --------- --- ------- ----- --------- ------ 06/22/2016 BUTRANS 10 MCG/HR PATCH 4.00 28 [id number] 06/15/2016 059002 N [id number] 18.0 05/29/2016 BUTRANS 15 MCG/HR PATCH 4.00 28 [id number] 05/17/2016 [id number] N [id number] 27.0 05/02/2016 BUTRANS 15 MCG/HR PATCH 4.00 28 [id number] 05/02/2016 [id number] N [id number] 27.0 04/04/2016 BUTRANS 15 MCG/HR PATCH 4.00 28 [id number] 04/04/2016 [id number] N [id number] 27.0 03/07/2016 BUTRANS 15 MCG/HR PATCH 4.00 28 [id number] 03/07/2016 [id number] N [id number] 27.0 02/10/2016 BUTRANS 15 MCG/HR PATCH 4.00 28 [id number] 02/10/2016 [id number] N [id number] 27.0 01/27/2016 BUTRANS 10 MCG/HR PATCH 4.00 28 [id number] 01/26/2016 [id number] N [id number] 18.0 01/11/2016 LYRICA 50 MG CAPSULE 90.00 30 [id number] 01/10/2016 942473 N [id number] 00.0 01/11/2016 BUTRANS 5 MCG/HR PATCH 4.00 30 [id number] 01/11/2016 435124 N [id number] 08.4 11/15/2015 TRAMADOL HCL 50 MG TABLET 56.00 28 [id number] 11/10/2015 043380 N [id number] 10.0 11/15/2015 LORAZEPAM 1 MG TABLET 56.00 28 [id number] 11/10/2015 345894 N [id number] 00.0 11/04/2015 LORAZEPAM 1 MG TABLET 12.00 2 [id number] 11/04/2015 7395837 N [id number] 00.0 10/18/2015 TRAMADOL HCL 50 MG TABLET 56.00 28 [id number] 10/17/2015 936858 N [id number] 10.0 10/18/2015 LORAZEPAM 1 MG TABLET 56.00 28 [id number] 10/17/2015 644633 N [id number] 00.0 09/22/2015 LORAZEPAM 1 MG TABLET 56.00 28 [id number] 08/25/2015 372101 R [id number] 00.0 09/22/2015 TRAMADOL HCL 50 MG TABLET 56.00 28 [id number] 08/25/2015 778130 R [id number] 10.0 09/13/2015 LORAZEPAM 1 MG TABLET 26.00 13 [id number] 08/25/2015 489034 N [id number] 00.0 09/13/2015 TRAMADOL HCL 50 MG TABLET 26.00 13 [id number] 08/25/2015 482131 N [id number] 10.0 07/22/2015 LORAZEPAM 1 MG TABLET 90.00 30 [id number] 07/22/2015 0117328 N [id number] 00.0 07/21/2015 OXYCODONE HCL 5 MG TABLET 20.00 5 [id number] 07/20/2015 3497387 N [id number] 30.0 06/25/2015 TRAMADOL HCL 50 MG TABLET 120.00 20 [id number] 06/02/2015 7129537 N [id number] 30.0 05/30/2015 TRAMADOL HCL 50 MG TABLET 60.00 10 [id number] 05/30/2015 0174952 N [id number] 30.0 05/30/2015 LORAZEPAM 1 MG TABLET 90.00 30 [id number] 05/30/2015 3670061 N [id number] 00.0 05/05/2015 OXYCODONE HCL 5 MG/5 ML SOLN 210.00 7 [id number] 05/04/2015 850536 N [id number] 45.0 04/04/2015 OXYCODONE-ACETAMINOPHEN 5-325 15.00 2 [id number] 04/04/2015 [id number] N [id number] 56.25 03/09/2015 OXYCODONE-ACETAMINOPHEN 5-325 30.00 7 [id number] 03/09/2015 8706012 N [id number] 32.14 02/23/2015 OXYCODONE-ACETAMINOPHEN 5-325 20.00 5 [id number] 02/23/2015 7953444 N [id number] 30.0 01/23/2015 OXYCODONE HCL 10 MG TABLET 15.00 2 [id number] 01/23/2015 1564405 N [id number] 112.5 01/17/2015 LORAZEPAM 1 MG TABLET 30.00 10 [id number] 01/17/2015 9775247 N [id number] 00.0 01/08/2015 OXYCODONE-ACETAMINOPHEN 5-325 25.00 3 [id number] 01/07/2015 9685294 N [id number] 62.5 01/07/2015 OXYCODONE-ACETAMINOPHEN 5-325 25.00 3 [id number] 01/07/2015 3162478 N [id number] 62.5 12/20/2014 OXYCODONE-ACETAMINOPHEN 5-325 15.00 2 [id number] 12/20/2014 [id number] N [id number] 56.25 12/07/2014 OXYCODONE-ACETAMINOPHEN 5-325 15.00 5 [id number] 12/07/2014 83860 N [id number] 22.5
[2016-12-30] MEDS: NORMAL SALINE 1000 ML 1,000 ML IV PRN ×2 (09:54→18:32)
[2016-12-30] MEDS ORDERED: DICYCLOMINE HCL 20 MG TABLET PO SCH (10:00)
[2016-12-30] MEDS ORDERED: AMLODIPINE BESYLATE 10 MG TABLET PO SCH (10:00)
[2016-12-30] MEDS: DICYCLOMINE HCL 20 MG TABLET PO SCH ×4 (10:06→21:45)
[2016-12-30] MEDS: DOCUSATE SODIUM 100 MG CAPSULE PO SCH ×2 (10:07→17:58)
--- NOTE | 2016-12-30 10:17 | PROGRESS NOTE E ---
Progress Note NAME: RUTH CA : 1975 AGE: 41Y DATE: 12/30/2016 ROOM: 415 SUBJECTIVE: The patient is currently lying in bed. She states that her pain is currently a 2. The patient is requesting food; however, I instructed the patient that her goal is to have blood sugar less than 200 before we resume meals. The patient has been afebrile. Her blood pressure has been in the decent range; however, the patient has had tachycardia, but I feel this may be some rebounding. There has been no reported episodes of vomiting, nor diarrhea. The patient denies nausea at this time. The patient is asking for stronger pain medications and the patient does not voice any other concerns at this time. REVIEW OF SYSTEMS: The rest of the review of systems is negative. MEDICATIONS: Medications have been reviewed. OBJECTIVE: GENERAL: The patient is a 41-year-old -[place] female who is awake, alert, and oriented to person, place, time, and situation. She is verbal, conversational, ambulatory, does not appear to be in any acute distress. VITAL SIGNS: As follows: Temperature is 98.8, pulse 127, respirations 16, blood pressure 140/79, oxygen saturation 100% on room air. SKIN: Warm and dry. No rash, not diaphoretic. HEENT: Pupils equal, round, and reactive to light and accommodation. Conjunctivae pink. No JVP. CARDIOVASCULAR: Heart is regular. There is no murmur or rub. CHEST: Clear, symmetrical, unlabored. ABDOMEN: Soft, nontender, nondistended. BACK: No CVA tenderness or sacral edema. EXTREMITIES: No clubbing, cyanosis, edema. PSYCHIATRIC: The patient is unengaging, almost apathetic. DIAGNOSTICS: Lab values are as follows: Hematology obtained on 12/30/2016: WBC 28.9, hemoglobin 13.1, hematocrit 38.5, platelet count 332,000. Chemistry obtained on 12/30/2016: Sodium 141, potassium 4.5, chloride 108, carbon dioxide 15, BUN 16, creatinine 0.92, glucose 268, calcium 10.1. IMPRESSION AND PLAN: 1. EARLY DIABETIC KETOACIDOSIS. We will continue IV fluids and we will resume diet once the patient's glucose is less than 200. I have stressed the importance of compliance. 2. CHRONIC GENERALIZED ABDOMINAL PAIN. Non-narcotic, symptomatic management at this time. We will correct her underlying acidotic state. I have educated the patient regarding this. The patient may Tylenol for pain relief, as well as Bentyl. I have recommended TCA at this time; however, the patient taking an SSRI. Upon review of records, the patient does have a pattern of waxing and waning LFTs, which could allude to a sphincter of Oddi dysfunction. The patient also denies any symptoms of gas pain. We will follow. 3. BIPOLAR DISORDER. We will continue home medication and Haldol as needed. 4. SIRS RESPONSE MOST LIKELY SECONDARY TO ABOVE. The patient's white count does appear to be trending down. We will repeat and follow. 5. DEEP VEIN THROMBOSIS PROPHYLAXIS. We will continue subcutaneous heparin. 6. TACHYCARDIA. I feel this is rebounding as the patient does not have her clonidine patch on. We will replace patch and monitor the patient's heart rate or it could be a component of the SIRS response. DISPOSITION: The patient is a FULL CODE. Pending the patient's symptomatology and diagnostic findings, will re-evaluate in the a.m. The patient will remain inpatient telemetry and the patient is expected length of stay will surpass 2 midnights. TIME SPENT: On this followup including assessment and plan, physical examination, patient education and review of previous records and much discussion with the patient is 35 minutes. DICTATING PHYSICIAN: MAX PARKER NP [id number] PHY#: [id number] ID: [id number] JOB#: [id number] ACCT: [id number] cc: >
[2016-12-30] MEDS: VENLAFAXINE HCL 37.5 MG CAP.SR.24H PO SCH ×2 (10:43→17:58)
[2016-12-30 11:04] LABS: GLUCOSE 400 mg/dL (75-110)
[2016-12-30] MEDS: HALOPERIDOL LACTATE INJ 5 MG/1 ML VIAL IV SCH ×2 (13:11→21:45)
[2016-12-30 14:40] LABS: HEMATOCRIT 37.3 % (36.0-47.0); HEMOGLOBIN 12.5 g/dL (12.0-15.5); HGB HCT DIFFERENCE 0.2; MEAN CORPUSCULAR HEMOGLOBIN 29.4 pg (27.0-33.4); MEAN CORPUSCULAR HGB CONC 33.7 g/dL (32.0-36.0); MEAN CORPUSCULAR VOLUME 87 fl (80-97); RED BLOOD COUNT 4.27 10^6/uL (3.72-5.28); RED CELL DISTRIBUTION WIDTH 13.2 % (11.5-14.0); WHITE BLOOD COUNT 21.6 10^3/uL (4.0-10.5)
[2016-12-30 15:03] LABS: ANION GAP 16 (5-19); BLOOD UREA NITROGEN 14 mg/dL (7-20); CARBON DIOXIDE 18 mmol/L (22-30); CHLORIDE 106 mmol/L (98-107); GLUCOSE 201 mg/dL (75-110); POTASSIUM 4.1 mmol/L (3.6-5.0); SODIUM 140.3 mmol/L (137-145)
[2016-12-30] MEDS ORDERED: DIPHENHYDRAMINE HCL 25 MG/10 ML UDC PO ONE (17:40)
[2016-12-30] MEDS ORDERED: LIDOCAINE 2% VISCOUS SOLN 20 ML UDCUP PO ONE (17:40)
[2016-12-30] MEDS ORDERED: MAG HYDROX/AL HYDROX/SIMETH SUSP 30 ML UDCUP PO ONE (17:40)
[2016-12-30] MEDS ORDERED: SIMETHICONE 40 MG/0.6 ML DROPS 30ML PO ONE (17:40)
[2016-12-30] MEDS ORDERED: LISINOPRIL 10 MG TABLET PO SCH (18:00)
[2016-12-30] MEDS ORDERED: LANSOPRAZOLE 30 MG TAB.RAP.DR PO SCH (18:00)
[2016-12-30] MEDS ORDERED: INSULIN GLARGINE,HUM.REC.ANLOG 300 UNIT/3 ML INSULN.PEN SUBCUT SCH ×2 (18:00→22:00)
[2016-12-30] MEDS ORDERED: LISINOPRIL 10 MG TABLET PO ONE (18:30)
[2016-12-30] MEDS ORDERED: LANSOPRAZOLE 30 MG TAB.RAP.DR PO ONE (18:30)
[2016-12-30] MEDS ORDERED: DIPHENHYDRAMINE HCL 25 MG/10 ML UDC ONE (18:44)
[2016-12-30] MEDS ORDERED: SIMETHICONE 40 MG/0.6 ML DROPS 30ML ONE (18:44)
[2016-12-30] MEDS ORDERED: ATORVASTATIN CALCIUM 40 MG TABLET PO SCH (22:00)
[2016-12-31] MEDS: INSULIN LISPRO 100 UNIT/ML 3 ML VIAL SUBCUT PRN ×2 (00:15→08:50)
[2016-12-31] MEDS ORDERED: CLONIDINE 0.2 MG/24 HR PATCH.TDWK TD ONE (03:00)
[2016-12-31] MEDS ORDERED: CLONIDINE 0.2 MG/24 HR PATCH.TDWK ONE (05:18)
[2016-12-31] MEDS: HEPARIN SOD (PORCINE) 5,000 UNIT/ML 1 ML SYRINGE SUBCUT SCH (05:30)
[2016-12-31] MEDS: NORMAL SALINE 1000 ML 1,000 ML IV PRN (05:31)
[2016-12-31] MEDS: HALOPERIDOL LACTATE INJ 5 MG/1 ML VIAL IV SCH (05:31)
[2016-12-31 05:57] LABS: HEMATOCRIT 37.5 % (36.0-47.0); HEMOGLOBIN 12.7 g/dL (12.0-15.5); HGB HCT DIFFERENCE 0.6; MEAN CORPUSCULAR HEMOGLOBIN 29.5 pg (27.0-33.4); MEAN CORPUSCULAR HGB CONC 33.9 g/dL (32.0-36.0); MEAN CORPUSCULAR VOLUME 87 fl (80-97); RED BLOOD COUNT 4.31 10^6/uL (3.72-5.28); RED CELL DISTRIBUTION WIDTH 13.1 % (11.5-14.0); WHITE BLOOD COUNT 15.9 10^3/uL (4.0-10.5)
[2016-12-31 06:10] LABS: ANION GAP 15 (5-19); BLOOD UREA NITROGEN 12 mg/dL (7-20); CALCIUM 9.8 mg/dL (8.4-10.2); CARBON DIOXIDE 18 mmol/L (22-30); CHLORIDE 104 mmol/L (98-107); CREATININE RESULT 0.82 mg/dL (0.52-1.25); GLUCOSE 216 mg/dL (75-110); POTASSIUM 4.3 mmol/L (3.6-5.0); SODIUM 137.4 mmol/L (137-145)
[2016-12-31 08:39] VITALS: BP 148/75
--- NOTE | 2016-12-31 09:02 | DISCHARGE SUMMARY E ---
Discharge Summary NAME: RUTH CA : 1975 AGE: 41Y ADMITTED: 12/30/2016 DISCHARGED: 12/31/2016 CODE STATUS: FULL CODE. PRIMARY CARE PROVIDER: Tayler Perry CERTIFIED NURSING ASSISTANT: Luan Robison DISCHARGE DIAGNOSES INCLUDE: 1. Abdominal migraine. 2. Early diabetic ketoacidosis. 3. SIRS secondary to the above, which is improved. 4. Sinus tachycardia. 5. Bipolar disorder. HOME MEDICATIONS INCLUDE: 1. Amitriptyline 50 mg p.o. at hour of sleep, 30 tablets with 0 refills. 2. Norvasc 10 mg p.o. daily. 3. Clonidine 0.2-mg patch weekly. 4. Dexilant 60 mg p.o. daily. 5. Lantus 50 units subcutaneous at hour of sleep. 6. Humalog sliding-scale coverage before meals. 7. Lisinopril 20 mg p.o. daily. DIET: Diabetic as tolerated. ACTIVITY: As tolerated. DIAGNOSTICS: Lab values are as follows. Hematology obtained on 12/31/2016: WBCs are 15.9, hemoglobin is 12.7, hematocrit is 37.5, platelet count is 334,000. Venous blood gas obtained on 12/29/2016 has a pH of 7.40, PCO2 is 36.1, bicarb is 21.6. Chemistry obtained on 12/31/2016: Sodium is 137, potassium 4.3, chloride is 104, carbon dioxide 18, BUN 12, creatinine 0.82, glucose 216. A1c is 7.0. Calcium is 9.8, magnesium is 1.7, bilirubin is 0.8, AST 55, ALT is 26, alk phos 146, total protein is 10.8, albumin 5.5, lipase is 68.6. HCG is negative. Urinalysis obtained on 12/29/2016: Color yellow, appearance clear, pH 6.0, specific gravity is 1.021, protein 30, glucose greater than 500, ketones 20, occult blood negative, nitrite negative, bilirubin negative, urobilinogen is negative, leukocyte esterase is negative, WBCs 2, RBCs 0, mucus rare, ascorbic acid is negative. HISTORY OF PRESENT ILLNESS: The patient is a 41-year-old -[place] female with a past medical history of insulin-dependent diabetes as well as chronic abdominal pain. The patient presented to the emergency department with a chief complaint of nausea and vomiting. The patient was in her usual state of health until approximately 8 hours prior to presentation when the patient developed polyuria, polydipsia, and uncontrolled hyperglycemia. The patient presented to the emergency department quite agitated and adamant that she needed pain medications for abdominal pain. While in the emergency department, the patient received Haldol, insulin, and IV fluids with some improvement of her symptoms; however, given the patient's white count and findings of early DKA, she was referred to the hospitalist for admission and management. HOSPITAL COURSE: The patient was admitted to continuous telemetry unit. The patient was aggressively hydrated and the patient's glucose improved significantly. The patient's white count trended down with symptom management and the patient was able to advance her diet as tolerated. The patient had no further episodes of vomiting nor diarrhea as the nausea did improve. After much discussion with the patient, it appears that the patient was having frequent visits to the hospital for ongoing abdominal pain. The patient underwent cholecystectomy and numerous imaging. The patient was actually referred to [facility] where she followed up with Gastroenterology there with no specific outcome. However, in June of this year the patient was seen by Pain Management, Luan Robison, at [place], and the patient underwent what she described as 2 injections to her "iliac area" and had complete symptom resolution to that as she was treated as an abdominal migraine. The patient states that she has been 6 months without any pain, which is what the estimate was. This correlates with ER visits. The patient also has not had any narcotics reported in the Controlled Substance database since May of this year, which also correlates with the patient's symptom resolution in June of this year. The patient's last ER visit was in June of this year; however, this December admission is the first presentation the patient has had since that time. Therefore, this does appear to be a successful management and the patient will be referred back for this. The patient is in agreeance to this plan, and once the patient's pain and symptoms are controlled she is absolutely pleasant. PHYSICAL EXAMINATION: GENERAL: On examination, the patient is a well-developed, well-nourished 41-year-old -[place] female who is awake, alert, and oriented to person, place, time, and situation. She is verbal, conversational, does not appear to be in any acute distress. VITAL SIGNS: As follows: Temperature is 97.8, pulse 120, respirations 16, blood pressure is 173/87, oxygen saturation is 100% on room air. SKIN: Warm and dry. No rash, not diaphoretic. HEENT: Pupils equal, round, and reactive to light and accommodation. Conjunctivae pink. No JVP. CARDIOVASCULAR: Heart is regular. There is no murmur or rub. CHEST: Clear, symmetrical, unlabored. ABDOMEN: Soft, nontender, nondistended. BACK: No CVA tenderness or sacral edema. EXTREMITIES: No clubbing, cyanosis, edema. PSYCHIATRIC: Appropriate affect. Pleasant mood. DISCHARGE PLANNIN. The patient is advised to follow up with primary care provider as needed. 2. The patient is to follow up within the next week with Luan Robison. Time spent on this discharge, including assessment/plan, physical examination, patient education, and resource alignment, is 25 minutes. DICTATING PHYSICIAN: MAX PARKER NP [id number] Y#: [id number] ID: [id number] JOB#: [id number] ACCT: [id number] cc:TON RAMIREZ M.D. MAX PARKER NP >
[2016-12-31] MEDS: VENLAFAXINE HCL 37.5 MG CAP.SR.24H PO SCH (09:32)
[2016-12-31] MEDS: DICYCLOMINE HCL 20 MG TABLET PO SCH (09:32)
[2016-12-31] MEDS: DOCUSATE SODIUM 100 MG CAPSULE PO SCH (09:33)
[2016-12-31] MEDS ORDERED: AMLODIPINE BESYLATE 10 MG TABLET PO SCH (10:00)
[2016-12-31] MEDS ORDERED: INSULIN GLARGINE,HUM.REC.ANLOG 300 UNIT/3 ML INSULN.PEN SUBCUT SCH (22:00)
[2017-01-04] MEDS ORDERED: CLONIDINE 0.2 MG/24 HR PATCH.TDWK TD SCH (10:00)
[2017-01-04] MEDS ORDERED: CLONIDINE 0.2 MG/24 HR PATCH.TDWK TD PRN (10:00)
[2017-01-06] MEDS ORDERED: CLONIDINE 0.2 MG/24 HR PATCH.TDWK TD SCH (10:00)
== END 2016-12-31 11:47 | disposition home or self-care (01) | DRG 639 ==
LOC: ER 18:53 → UNDOADMIN 22:58 → EH 22:58 → UNDOADMIN 23:51 → EH 23:51 → 4N 12-30 02:53 → EH 12-30 08:19
PROVIDERS: ADMIT Internal Medicine; ATTEND Internal Medicine
DX: E10.10 Type 1 diabetes mellitus with ketoacidosis without coma (principal); G43.D0 Abdominal migraine, not intractable; R00.0 Tachycardia, unspecified; F31.9 Bipolar disorder, unspecified; K58.9 Irritable bowel syndrome, unspecified; E78.5 Hyperlipidemia, unspecified; I10 Essential (primary) hypertension; K21.9 Gastro-esophageal reflux disease without esophagitis; M19.049 Primary osteoarthritis, unspecified hand; K31.84 Gastroparesis; E10.43 Type 1 diabetes mellitus with diabetic autonomic (poly)neuropathy; F41.9 Anxiety disorder, unspecified; Z88.8 Allergy status to other drugs, medicaments and biological substances; Z79.899 Other long term (current) drug therapy; Z79.4 Long term (current) use of insulin; Z90.49 Acquired absence of other specified parts of digestive tract; Z91.19 Patient's noncompliance with other medical treatment and regimen; Z86.14 Personal history of Methicillin resistant Staphylococcus aureus infection; Z83.3 Family history of diabetes mellitus
CPT/HCPCS: 36415; 80048; 80053; 81001; 82803; 82962; 83036; 83690; 83735; 84100; 84703; 85025; 85027; 99291; G0378; J0360; J1630; J1644; J1815; J1885; J2405; J3480; J3490; J7030

== ENCOUNTER 2017-01-25 12:47 | Emergency (ER) | payer MEDICAID ==
[2017-01-25] MEDS ORDERED: ONDANSETRON 4 MG TAB.RAPDIS PO ONE ×2 (13:05→17:52)
[2017-01-25] MEDS ORDERED: NORMAL SALINE 1000 ML 1,000 ML IV PRN (13:05)
--- NOTE | 2017-01-25 13:05 | ER Document Report ---
ED Medical Screen (RME) - General Chief Complaint: Abdominal Pain Stated Complaint: ABDOMINAL PAIN Time Seen by Provider: 01/25/17 12:59 TRAVEL OUTSIDE OF THE [place] IN LAST 30 DAYS: No - HPI Notes: 01/25/17 13:04 Recurrence of chronic abdominal pain nausea and vomiting - Related Data Allergies/Adverse Reactions: metoclopramide HCl [From Reglan] Allergy (Unknown, Verified 01/25/17 12:58) Past Medical History - Social History Chew tobacco use (# tins/day): No Frequency of alcohol use: None Drug Abuse: None Family history: DM, Hypertension - Past Medical History Cardiac Medical History: Reports: Hx Hypercholesterolemia, Hx Hypertension Endocrine Medical History: Reports: Hx Diabetes Mellitus Type 1, Hx Diabetes Mellitus Type 2 Renal/ Medical History: Reports: Hx Renal Insufficiency. Denies: Hx Peritoneal Dialysis GI Medical History: Reports: Hx Gastroesophageal Reflux Disease Musculoskeltal Medical History: Reports Hx Arthritis - Hand Psychiatric Medical History: Reports: Hx Anxiety, Hx Bipolar Disorder, Hx Depression Infectious Medical History: Reports: Hx MRSA Past Surgical History: Reports: Hx Cholecystectomy - Immunizations Immunizations up to date: Yes Hx Diphtheria, Pertussis, Tetanus Vaccination: Yes - unknown Review of Systems - Review of Systems Gastrointestinal: Abdominal pain, Nausea, Vomiting Physical Exam - Vital signs Vitals: Temp Pulse Resp BP Pulse Ox 98.7 F 123 H 22 H 170/93 H 96 01/25/17 12:50 01/25/17 12:50 01/25/17 12:50 01/25/17 12:50 01/25/17 12:50 - Respiratory Respiratory status: No respiratory distress Chest status: Nontender Breath sounds: Normal Chest palpation: Normal Course - Vital Signs Vital signs: Temp Pulse Resp BP Pulse Ox 98.7 F 123 H 22 H 170/93 H 96 01/25/17 12:50 01/25/17 12:50 01/25/17 12:50 01/25/17 12:50 01/25/17 12:50
[2017-01-25] MEDS ORDERED: MAG HYDROX/AL HYDROX/SIMETH SUSP 30 ML UDCUP PO ONE ×2 (13:44→15:24)
[2017-01-25] MEDS ORDERED: LIDOCAINE 2% VISCOUS SOLN 20 ML UDCUP PO ONE ×2 (13:44→15:24)
--- NOTE | 2017-01-25 13:44 | ER Document Report ---
ED GI/ - General Chief Complaint: Abdominal Pain Stated Complaint: ABDOMINAL PAIN Time Seen by Provider: 01/25/17 12:59 Notes: patient is a 41 year old female who presents to the ED complaining of her chronic nausea, vomiting and epigastric abdominal pain. She states she started experiencing symptoms at 6am this morning. She has not been able to tolerate anything PO since. She admits to sharp epigastric pain, mild relief with emesis. PMH: HTN, gastroparesis, DM PCP: Dr Salcido with [facility] TRAVEL OUTSIDE OF THE [place] IN LAST 30 DAYS: No - Related Data Allergies/Adverse Reactions: metoclopramide HCl [From Reglan] Allergy (Unknown, Verified 01/25/17 12:58) Past Medical History - Social History Smoking Status: Never Smoker Chew tobacco use (# tins/day): No Frequency of alcohol use: None Drug Abuse: None Family History: DM Patient has suicidal ideation: No Patient has homicidal ideation: No - Past Medical History Cardiac Medical History: Reports: Hx Hypercholesterolemia, Hx Hypertension Endocrine Medical History: Reports: Hx Diabetes Mellitus Type 1, Hx Diabetes Mellitus Type 2 Renal/ Medical History: Reports: Hx Renal Insufficiency. Denies: Hx Peritoneal Dialysis GI Medical History: Reports: Hx Gastroesophageal Reflux Disease Musculoskeltal Medical History: Reports Hx Arthritis - Hand Psychiatric Medical History: Reports: Hx Anxiety, Hx Bipolar Disorder, Hx Depression Infectious Medical History: Reports: Hx MRSA Past Surgical History: Reports: Hx Cholecystectomy - Immunizations Immunizations up to date: Yes Hx Diphtheria, Pertussis, Tetanus Vaccination: Yes - unknown Hx Pneumococcal Vaccination: 05/04/10 Physical Exam - Vital signs Vitals: Temp Pulse Resp BP Pulse Ox 98.7 F 123 H 22 H 170/93 H 96 01/25/17 12:50 01/25/17 12:50 01/25/17 12:50 01/25/17 12:50 01/25/17 12:50 - Notes Notes: PHYSICAL EXAM GENERAL: Alert, thrashing around the bed but able to speak in complete sentences regarding her medical history HEAD: Normocephalic, atraumatic. EYES: Pupils equal, round, and reactive to light. Extraocular movements intact. ENT: Oral mucosa moist, tongue midline. NECK: Full range of motion. Supple. Trachea midline. LUNGS: Clear to auscultation bilaterally, no wheezes, rales, or rhonchi. No respiratory distress. HEART: Regular rate and rhythm. No murmurs, gallops, or rubs. ABDOMEN: Soft, nondistended, nontender. No guarding, rebound, or rigidity.. Bowel sounds present in all 4 quadrants. EXTREMITIES: Moves all 4 extremities spontaneously. No edema, radial and dorsalis pedis pulses 2/4 bilaterally. No cyanosis. NEUROLOGICAL: Alert and oriented x4. Normal speech. PSYCH: Normal affect, normal mood. SKIN: Warm, dry, normal turgor. No rashes or lesions noted. Course - Re-evaluation Re-evalutation: 01/25/17 13:45 Patient is a 41-year-old female who is hemodynamically stable in moderate distress but is consistent with patient's presentation for her complaint which is her chronic gastroparesis. Patient's heart rate mildly tachycardic in the 120s. No s/s dehydration. abdomen is soft, without tenderness. no concerns for acute abdomen, DKA or sepsis. Mild metabolic acidosis due to emesis. Patients pain is in line with her chronic gastroparesis with normal PE findings therefore no imaging is indicated today. I offered hydration with IVF fluids, but patient declines. Discussed with patient she will need to drink plenty of clear fluids when she gets home 01/25/17 17:51 Patient has been medicated and resting comfortably. Conducting PO trial. 01/25/17 18:44 Tolerating PO, clinically improved since arrival. Requesting additional pain medication. Stable for discharge home and to follow up with PCP for GI referral within [facility] - Vital Signs Vital signs: Temp Pulse Resp BP Pulse Ox 98.7 F 105 H 18 178/89 H 96 01/25/17 12:50 01/25/17 17:08 01/25/17 17:08 01/25/17 17:08 01/25/17 17:08 - Laboratory Result Diagrams: 01/25/17 16:10 01/25/17 16:10 Laboratory results interpreted by me: 01/25/17 01/25/17 01/25/17 14:27 16:10 16:10 WBC 12.2 H Seg Neutrophils % 89.4 H Lymphocytes % 7.2 L Absolute Neutrophils 10.9 H Carbon Dioxide 18 L Anion Gap 21 H Glucose 278 H POC Glucose 215 H Calcium 11.1 H Alkaline Phosphatase 127 H Total Protein 9.6 H Albumin 5.4 H Urine Protein Urine Glucose (UA) Urine Ketones Ur Leukocyte Esterase 01/25/17 16:44 WBC Seg Neutrophils % Lymphocytes % Absolute Neutrophils Carbon Dioxide Anion Gap Glucose POC Glucose Calcium Alkaline Phosphatase Total Protein Albumin Urine Protein 30 H Urine Glucose (UA) >=500 H Urine Ketones 20 H Ur Leukocyte Esterase TRACE H Discharge - Discharge Clinical Impression: Gastroparesis due to DM Condition: Stable Disposition: HOME, SELF-CARE Additional Instructions: Please be sure to drink plenty of clear fluids to keep you hydrated. ABDOMINAL PAIN: There are many causes of abdominal pain. Pain can mean a serious problem requiring surgery (such as appendicitis). It can also be an innocent problem that goes away on its own (such as a viral infection). Often, time must pass to determine the cause of pain. The physician does not feel that hospitalization is necessary, at present. Things may change within the next 24 hours. Call the doctor or come back for re- examination if any problems occur, such as: (1) Pain that becomes more severe, steady, or becomes concentrated in one specific area. Also, pain that is more severe with movement or coughing. (2) Vomiting that persists or becomes more frequent. (3) Blood in the vomitus, urine, or bowel movements. Blood in the stool may have a tarry or black appearance. (4) Shaking chills or fever greater than 100 degrees F. (5) The abdomen becomes more distended or swollen. (6) Bowel movements cease. (7) Failure to improve as expected. NORMAL EXAM AND WORKUP: At this time, your examination and workup show no significant abnormality. No significant abnormal physical findings are noted. All laboratory, EKG, and imaging (x-ray, CT scans, ultrasound) studies that were ordered show no significant abnormality. Although your examination and all studies that were ordered showed no significant abnormal finding, there are no examinations and no studies that are 100% accurate. There is always the possibility that some abnormality could exist and not be detected with physical examination or within the limits and capabilities of laboratory and other studies. You should return or follow up as you were instructed on your visit today for further evaluation if your symptoms do not resolve. TORADOL INJECTION: You have been given an injection of ketorolac tromethamine (Toradol). This is an excellent, safe drug for pain control. It also has potent antiinflammatory action. You should have significant pain relief within about one hour. Toradol is not addicting and is non-sedating. It does not interfere with driving or work. Call or return if you develop itching, hives, shortness of breath, or rash. ANTINAUSEA MEDICATION: You have been given a medication to suppress nausea and vomiting. This type of medication can be given as a shot, pill, or suppository. It will usually last for many hours. Pills and shots usually last six to eight hours, suppositories last about 12 hours. For the typical illness, only one or two doses of the medication may be necessary. Mild lightheadedness may occur. This type of medicine can cause drowsiness. Do not drive or operate dangerous machinery while under its influence. Do not mix with alcohol. See your doctor at once if you have muscle spasms or tightness, or uncontrollable motions (particularly of the neck, mouth, or jaw). Persistent vomiting or severe lightheadedness should also be evaluated by the physician. FOLLOW-UP CARE: If you have been referred to a physician for follow-up care, call the physician s office for an appointment as you were instructed or within the next two days. If you experience worsening or a significant change in your symptoms, notify the physician immediately or return to the Emergency Department at any time for re-evaluation. Prescriptions: Lidocaine HCl [Lidocaine HCl Viscous] 15 ml PO BID #100 ml Referrals: GLEN SALCIDO PA-C [NO LOCAL MD] - Follow up in 3-5 days (Request GI referral)
[2017-01-25] MEDS ORDERED: PROCHLORPERAZINE EDISYLATE INJ 10 MG/2 ML VIAL IM ONE (14:32)
[2017-01-25] MEDS ORDERED: KETOROLAC TROMETHAMINE INJ/PF 30 MG/1 ML SDV IM ONE ×2 (14:32→18:35)
[2017-01-25] MEDS ORDERED: HALOPERIDOL LACTATE INJ 5 MG/1 ML VIAL IM ONE (15:23)
[2017-01-25 16:19] LABS: VENOUS BLOOD BASE EXCESS -4.2 mmol/L; VENOUS BLOOD HCO3 20.8 mmol/L (20-32); VENOUS BLOOD PCO2 37.9 mmHg (35-63); VENOUS BLOOD PH 7.36 (7.30-7.42)
[2017-01-25 16:20] LABS: ABSOLUTE BASOPHILS # (AUTO) 0.1 10^3/uL (0.0-0.2); ABSOLUTE LYMPHOCYTES (AUTO) 0.9 10^3/uL (0.5-4.7); ABSOLUTE MONOCYTES (AUTO) 0.4 10^3/uL (0.1-1.4); ABSOLUTE NEUT (AUTO) 10.9 10^3/uL (1.7-8.2); BASOPHILS % (AUTO) 0.4 % (0-2); HEMATOCRIT 42.8 % (36.0-47.0); HEMOGLOBIN 14.7 g/dL (12.0-15.5); HGB HCT DIFFERENCE 1.3; LYMPHOCYTES % (AUTO) 7.2 % (13-45); MEAN CORPUSCULAR HEMOGLOBIN 29.8 pg (27.0-33.4); MEAN CORPUSCULAR HGB CONC 34.3 g/dL (32.0-36.0); MEAN CORPUSCULAR VOLUME 87 fl (80-97); RED BLOOD COUNT 4.93 10^6/uL (3.72-5.28); RED CELL DISTRIBUTION WIDTH 12.9 % (11.5-14.0); SEGMENTED NEUTROPHILS % (AUTO) 89.4 % (42-78); WHITE BLOOD COUNT 12.2 10^3/uL (4.0-10.5)
[2017-01-25 16:38] LABS: ALANINE AMINOTRANSFERASE 23 U/L (9-52); ALBUMIN 5.4 g/dL (3.5-5.0); ALKALINE PHOSPHATASE 127 U/L (38-126); ASPARTATE AMINO TRANSFERASE 24 U/L (14-36); BILIRUBIN,DIRECT 0.4 mg/dL (0.0-0.4); BILIRUBIN,TOTAL 0.7 mg/dL (0.2-1.3); BLOOD UREA NITROGEN 16 mg/dL (7-20); CALCIUM 11.1 mg/dL (8.4-10.2); CREATININE RESULT 0.82 mg/dL (0.52-1.25); GLUCOSE 278 mg/dL (75-110); LIPASE 113.5 U/L (23-300); TOTAL PROTEIN 9.6 g/dL (6.3-8.2)
[2017-01-25 16:53] LABS: ANION GAP 21 (5-19)
[2017-01-25 16:54] LABS: CARBON DIOXIDE 18 mmol/L (22-30); CHLORIDE 102 mmol/L (98-107); POTASSIUM 4.4 mmol/L (3.6-5.0); SODIUM 141.1 mmol/L (137-145)
[2017-01-25 16:59] LABS: APPEARANCE,URINE SLIGHTLY-CLOUDY; BILIRUBIN,URINE NEGATIVE (NEGATIVE); GLUCOSE, URINE >=500 mg/dL (NEGATIVE); KETONES,URINE 20 mg/dL (NEGATIVE); LEUKOCYTE ESTERASE,URINE TRACE (NEGATIVE); NITRITE,URINE NEGATIVE (NEGATIVE); PROTEIN,URINE 30 mg/dL (NEGATIVE); URINE SPECIFIC GRAVITY 1.015; UROBILINOGEN,URINE NEGATIVE mg/dL (<2.0)
[2017-01-25 19:38] VITALS: BP 171/92
== END 2017-01-25 19:15 | disposition home or self-care (01) ==
LOC: ER 12:47
DX: E11.43 Type 2 diabetes mellitus with diabetic autonomic (poly)neuropathy (principal); K31.84 Gastroparesis; R10.13 Epigastric pain; R11.2 Nausea with vomiting, unspecified; E87.2 Acidosis; I10 Essential (primary) hypertension; R00.0 Tachycardia, unspecified; Z88.8 Allergy status to other drugs, medicaments and biological substances
CPT/HCPCS: 99284; 96372; 36415; 82962; 83690; 84703; 85025; 80053; 81001; 82803; S0119; J1630; J3490 ×2; J1885; J0780

== ENCOUNTER 2017-02-06 08:30 | Emergency (ER) | payer MEDICAID ==
--- NOTE | 2017-02-06 09:07 | ER Document Report ---
ED GI/ - General Information source: Patient TRAVEL OUTSIDE OF THE [place] IN LAST 30 DAYS: No - HPI Patient complains to provider of: Abdominal pain, Vomiting Associated symptoms: Other - see above - General Chief Complaint: Abdominal Pain Stated Complaint: ABDOMINAL PAIN Time Seen by Provider: 02/06/17 08:56 Notes: Patient is a 41 year old female with a history of insulin dependent diabetes, gastroparesis, and chronic abdominal pain who presents to the ED with complaints of abdominal pain, nausea and vomiting with onset last night. She has not checked her blood sugar yet today. (TRELL COLLINS) - Related Data Allergies/Adverse Reactions: metoclopramide HCl [From Reglan] Allergy (Unknown, Verified 02/06/17 08:34) Past Medical History - General Information source: Patient - Social History Smoking Status: Never Smoker Chew tobacco use (# tins/day): No Frequency of alcohol use: None Drug Abuse: None Family History: DM - Past Medical History Cardiac Medical History: Reports: Hx Hypercholesterolemia, Hx Hypertension Endocrine Medical History: Reports: Hx Diabetes Mellitus Type 1 Renal/ Medical History: Reports: Hx Renal Insufficiency GI Medical History: Reports: Hx Gastroesophageal Reflux Disease Musculoskeltal Medical History: Reports Hx Arthritis - Hand Psychiatric Medical History: Reports: Hx Anxiety, Hx Bipolar Disorder, Hx Depression Infectious Medical History: Reports: Hx MRSA Past Surgical History: Reports: Hx Cholecystectomy - Immunizations Immunizations up to date: Yes Hx Diphtheria, Pertussis, Tetanus Vaccination: Yes - unknown Hx Pneumococcal Vaccination: 05/04/10 Review of Systems - Review of Systems Constitutional: No symptoms reported EENT: No symptoms reported Cardiovascular: No symptoms reported Respiratory: No symptoms reported Gastrointestinal: See HPI, Abdominal pain, Nausea, Vomiting Genitourinary: No symptoms reported Female Genitourinary: No symptoms reported Musculoskeletal: No symptoms reported Skin: No symptoms reported Hematologic/Lymphatic: No symptoms reported Neurological/Psychological: No symptoms reported Physical Exam - General General appearance: Alert - HEENT Head: Normocephalic, Atraumatic Eyes: Normal Extraocular movements intact: Yes Pupils: PERRL - Respiratory Respiratory status: No respiratory distress Breath sounds: Normal - Cardiovascular Rhythm: Regular Heart sounds: Normal auscultation Murmur: No - Abdominal Inspection: Normal Distension: No distension Bowel sounds: Normal Tenderness: Tender - epigastric tenderness to palpation - Back Back: Normal - Extremities General upper extremity: Normal inspection, Normal ROM General lower extremity: Normal inspection, Normal ROM - Neurological Neuro grossly intact: Yes - Psychological Associated symptoms: Normal affect, Normal mood - Skin Skin Temperature: Warm Skin Moisture: Dry Skin Color: Normal - Vital signs Vitals: Temp Pulse Resp BP Pulse Ox 98.5 F 117 H 18 173/91 H 99 02/06/17 08:34 02/06/17 08:34 02/06/17 08:34 02/06/17 08:34 02/06/17 08:34 Course - Re-evaluation Re-evalutation: 02/06/17 11:04 Patient states the GI cocktail did not help, that she threw it up. She states there was no burning discomfort only her regular pain. She wants medication by injection because she vomits. 02/06/17 14:19 The patient is improved and her nauseousness after the Benadryl and Haldol was given IM. She still does have some abdominal pain but this is a chronic problem. Review of records shows she frequently gets relief of her vomiting with Haldol. She states she has never been tried on as needed Haldol at home to take with her other nausea medications that she has. I told her I will give her a prescription for Haldol to take along with Benadryl at home when she starts becoming nauseous to see if that will abort the episodes and reduce her need to come to the emergency room. (TRICIA DIXON) - Vital Signs Vital signs: Temp Pulse Resp BP Pulse Ox 98.8 F 116 H 17 157/83 H 99 02/06/17 14:16 02/06/17 14:16 02/06/17 14:16 02/06/17 14:16 02/06/17 14:16 - Laboratory Laboratory results interpreted by me: 02/06/17 10:11 POC Glucose 218 H Discharge - Discharge Clinical Impression: Diabetic gastroparesis associated with type 1 diabetes mellitus, Chronic generalized abdominal pain Nausea and vomiting Qualifiers: Vomiting type: unspecified Vomiting Intractability: non-intractable Qualified Code(s): R11.2 - Nausea with vomiting, unspecified Condition: Stable Disposition: HOME, SELF-CARE Additional Instructions: Try taking the Haldol as prescribed with a Benadryl tablet when you are becoming nauseous and see if that helps control the nausea vomiting. Follow-up with your doctor to discuss other options to help control your symptoms. Prescriptions: Haloperidol [Haldol 5 mg Tablet] 5 mg PO DAILY PRN #10 tablet PRN Reason: For Nausea/Vomiting Referrals: MARIAM MORFIN, [Primary Care Provider] - Follow up as needed Scribe Attestation: 02/06/17 14:35 I personally performed the services described in the documentation, reviewed and edited the documentation which was dictated to the scribe in my presence, and it accurately records my words and actions. (TRICIA DIXON) Scribe Documentation - Scribe Written by Natalia:: natalia Duke, 02/06/2017, 904 acting as scribe for :: Bruna
[2017-02-06] MEDS ORDERED: LIDOCAINE 2% VISCOUS SOLN 20 ML UDCUP PO ONE (09:17)
[2017-02-06] MEDS ORDERED: MAG HYDROX/AL HYDROX/SIMETH SUSP 30 ML UDCUP PO ONE (09:17)
[2017-02-06] MEDS ORDERED: ONDANSETRON 4 MG TAB.RAPDIS PO ONE (09:44)
[2017-02-06] MEDS ORDERED: HALOPERIDOL 5 MG TABLET PO ONE (09:44)
[2017-02-06] MEDS ORDERED: HALOPERIDOL LACTATE INJ 5 MG/1 ML VIAL IM ONE (11:05)
[2017-02-06] MEDS ORDERED: DIPHENHYDRAMINE HCL 50 MG/ML VIAL IM ONE (11:05)
[2017-02-06 14:17] VITALS: BP 157/83
== END 2017-02-06 14:40 | disposition home or self-care (01) ==
LOC: ER 08:30
DX: E10.43 Type 1 diabetes mellitus with diabetic autonomic (poly)neuropathy (principal); K31.84 Gastroparesis; R10.84 Generalized abdominal pain; G89.29 Other chronic pain; R11.2 Nausea with vomiting, unspecified; I10 Essential (primary) hypertension; Z86.14 Personal history of Methicillin resistant Staphylococcus aureus infection; Z90.49 Acquired absence of other specified parts of digestive tract; Z88.8 Allergy status to other drugs, medicaments and biological substances
CPT/HCPCS: 99284; 96372; 82962; J1200; S0119; J1630; J3490 ×3

== ENCOUNTER 2017-03-15 14:24 | Emergency (ER) | payer MEDICAID ==
[2017-03-15] MEDS ORDERED: KETOROLAC TROMETHAMINE INJ/PF 30 MG/1 ML SDV IV ONE (14:41)
[2017-03-15] MEDS ORDERED: NORMAL SALINE 1000 ML 1,000 ML IV ONE (14:41)
--- NOTE | 2017-03-15 14:43 | ER Document Report ---
ED Medical Screen (RME) - General Chief Complaint: Abdominal Pain Stated Complaint: STOMACH PAIN Time Seen by Provider: 03/15/17 14:40 Mode of Arrival: Ambulatory Information source: Patient TRAVEL OUTSIDE OF THE [place] IN LAST 30 DAYS: No - HPI Patient complains to provider of: abd pain Onset: Other - pt. with c/o generalized abd. pain for the past 2-3 days with exacerbation today - Related Data Allergies/Adverse Reactions: metoclopramide HCl [From Reglan] Allergy (Unknown, Verified 03/15/17 14:27) Past Medical History - Social History Chew tobacco use (# tins/day): No Frequency of alcohol use: None Drug Abuse: None Family history: DM, Hypertension - Past Medical History Cardiac Medical History: Reports: Hx Hypercholesterolemia, Hx Hypertension Endocrine Medical History: Reports: Hx Diabetes Mellitus Type 1, Hx Diabetes Mellitus Type 2 Renal/ Medical History: Reports: Hx Renal Insufficiency. Denies: Hx Peritoneal Dialysis GI Medical History: Reports: Hx Gastroesophageal Reflux Disease Musculoskeltal Medical History: Reports Hx Arthritis - Hand Psychiatric Medical History: Reports: Hx Anxiety, Hx Bipolar Disorder, Hx Depression Infectious Medical History: Reports: Hx MRSA Past Surgical History: Reports: Hx Cholecystectomy - Immunizations Immunizations up to date: Yes Hx Diphtheria, Pertussis, Tetanus Vaccination: Yes - unknown Physical Exam - Vital signs Vitals: Temp Pulse Resp BP Pulse Ox 98.1 F 102 H 20 169/108 H 100 03/15/17 14:27 03/15/17 14:27 03/15/17 14:27 03/15/17 14:27 03/15/17 14:27 Course - Vital Signs Vital signs: Temp Pulse Resp BP Pulse Ox 98.1 F 102 H 20 169/108 H 100 03/15/17 14:27 03/15/17 14:27 03/15/17 14:27 03/15/17 14:27 03/15/17 14:27
[2017-03-15] MEDS ORDERED: HALOPERIDOL LACTATE INJ 5 MG/1 ML VIAL IV ONE (14:53)
--- NOTE | 2017-03-15 14:54 | ER Document Report ---
ED GI/ - General Chief Complaint: Abdominal Pain Stated Complaint: STOMACH PAIN Time Seen by Provider: 03/15/17 14:40 Mode of Arrival: Ambulatory Notes: The patient is a 41-year-old female, past medical history chronic abdominal pain , IBS, bipolar, IDDM, presents with 2-3 days of intermittent upper abdominal cramping. She also had some nausea that quickly resolved. She has seen a GI doctor for this, but was unable to find a cause for her abdominal pain. She has had a cholecystectomy. She denies urinary symptoms, vomiting, diarrhea, constipation, fevers, chest pain or shortness of breath. TRAVEL OUTSIDE OF THE [place] IN LAST 30 DAYS: No - Related Data Allergies/Adverse Reactions: metoclopramide HCl [From [employer]] Allergy (Unknown, Verified 03/15/17 14:27) Past Medical History - General Information source: Patient - Social History Smoking Status: Never Smoker Chew tobacco use (# tins/day): No Frequency of alcohol use: None Drug Abuse: None Family History: DM Patient has suicidal ideation: No Patient has homicidal ideation: No - Past Medical History Cardiac Medical History: Reports: Hx Hypercholesterolemia, Hx Hypertension Endocrine Medical History: Reports: Hx Diabetes Mellitus Type 1, Hx Diabetes Mellitus Type 2 Renal/ Medical History: Reports: Hx Renal Insufficiency. Denies: Hx Peritoneal Dialysis GI Medical History: Reports: Hx Gastroesophageal Reflux Disease Musculoskeltal Medical History: Reports Hx Arthritis - Hand Psychiatric Medical History: Reports: Hx Anxiety, Hx Bipolar Disorder, Hx Depression Infectious Medical History: Reports: Hx MRSA Past Surgical History: Reports: Hx Cholecystectomy - Immunizations Immunizations up to date: Yes Hx Diphtheria, Pertussis, Tetanus Vaccination: Yes - unknown Hx Pneumococcal Vaccination: 05/04/10 Review of Systems - Review of Systems Notes: REVIEW OF SYSTEMS: CONSTITUTIONAL: -fevers, -chills EENT: -eye pain, -difficulty swallowing, -nasal congestion CARDIOVASCULAR:-chest pain, -syncope. RESPIRATORY: -cough, -SOB GASTROINTESTINAL: +abdominal pain, +nausea, -vomiting, -diarrhea GENITOURINARY: -dysuria, -hematuria MUSCULOSKELETAL: -back pain, -neck pain SKIN: -rash or skin lesions. HEMATOLOGIC: -easy bruising or bleeding. LYMPHATIC: -swollen, enlarged glands. NEUROLOGICAL: -altered mental status or loss of consciousness, -headache, - neurologic symptoms PSYCHIATRIC: -anxiety, -depression. ALL OTHER SYSTEMS REVIEWED AND NEGATIVE. Physical Exam - Vital signs Vitals: Temp Pulse Resp BP Pulse Ox 98.1 F 102 H 20 169/108 H 100 03/15/17 14:27 03/15/17 14:27 03/15/17 14:27 03/15/17 14:27 03/15/17 14:27 - Notes Notes: PHYSICAL EXAMINATION: GENERAL: Well-appearing, well-nourished and in no acute distress. HEAD: Atraumatic, normocephalic. EYES: Pupils equal round and reactive to light, extraocular movements intact, sclera anicteric, conjunctiva are normal. ENT: nares patent, oropharynx clear without exudates. Moist mucous membranes. NECK: Normal range of motion, supple without lymphadenopathy LUNGS: Breath sounds clear to auscultation bilaterally and equal. No wheezes rales or rhonchi. HEART: Regular rate and rhythm without murmurs ABDOMEN: Soft, nontender, normoactive bowel sounds. No guarding, no rebound. No masses appreciated. EXTREMITIES: Normal range of motion, no pitting or edema. No cyanosis. NEUROLOGICAL: Cranial nerves grossly intact. Normal speech, normal gait. Normal sensory and motor exams. PSYCH: Normal mood, normal affect. SKIN: Warm, Dry, normal turgor, no rashes or lesions noted. Course - Re-evaluation Re-evalutation: Patient presents with 3 days of intermittent abdominal cramping that is worse in her upper abdomen. She has absolutely no abdominal tenderness and she has had multiple workups for this in the past. Her labs are unremarkable, other than a slight leukocytosis, but no signs of infection. She is also hyperglycemic, but does not have any signs of DKA or HHN. Abdominal series does not show any evidence of obstruction. Gave patient IV fluids and Haldol and she feels much better. Instructed her to continue following up with her GI doctor for further evaluation of her chronic abdominal pain. - Vital Signs Vital signs: Temp Pulse Resp BP Pulse Ox 98.1 F 102 H 20 169/108 H 100 03/15/17 14:27 03/15/17 14:27 03/15/17 14:27 03/15/17 14:27 03/15/17 14:27 - Laboratory Result Diagrams: 03/15/17 15:38 03/15/17 15:38 Laboratory results interpreted by me: 03/15/17 03/15/17 03/15/17 15:15 15:38 15:38 WBC 13.2 H Absolute Neutrophils 8.8 H Sodium 135.2 L Chloride 90 L Glucose 318 H Total Protein 8.3 H Urine Glucose (UA) >=500 H Urine Blood MODERATE H - Diagnostic Test Radiology reviewed: Image reviewed, Reports reviewed Radiology results interpreted by me: Acute abdominal x-ray: NAD Discharge - Discharge Clinical Impression: Chronic abdominal pain, Hyperglycemia Condition: Stable Disposition: HOME, SELF-CARE Additional Instructions: ABDOMINAL PAIN: There are many causes of abdominal pain. Pain can mean a serious problem requiring surgery (such as appendicitis). It can also be an innocent problem that goes away on its own (such as a viral infection). Often, time must pass to determine the cause of pain. The physician does not feel that hospitalization is necessary, at present. Things may change within the next 24 hours. Call the doctor or come back for re- examination if any problems occur, such as: (1) Pain that becomes more severe, steady, or becomes concentrated in one specific area. Also, pain that is more severe with movement or coughing. (2) Vomiting that persists or becomes more frequent. (3) Blood in the vomitus, urine, or bowel movements. Blood in the stool may have a tarry or black appearance. (4) Shaking chills or fever greater than 100 degrees F. (5) The abdomen becomes more distended or swollen. (6) Bowel movements cease. (7) Failure to improve as expected. NORMAL EXAM AND WORKUP: At this time, your examination and workup show no significant abnormality. No significant abnormal physical findings are noted. All laboratory, EKG, and imaging (x-ray, CT scans, ultrasound) studies that were ordered show no significant abnormality. Although your examination and all studies that were ordered showed no significant abnormal finding, there are no examinations and no studies that are 100% accurate. There is always the possibility that some abnormality could exist and not be detected with physical examination or within the limits and capabilities of laboratory and other studies. You should return or follow up as you were instructed on your visit today for further evaluation if your symptoms do not resolve. FOLLOW-UP CARE: If you have been referred to a physician for follow-up care, call the physician s office for an appointment as you were instructed or within the next two days. If you experience worsening or a significant change in your symptoms, notify the physician immediately or return to the Emergency Department at any time for re-evaluation. Prescriptions: Ondansetron [Zofran Odt 4 mg Tablet] 1 - 2 tab PO Q4H PRN #15 tab.rapdis PRN Reason: For Nausea/Vomiting Forms: Elevated Blood Pressure
--- NOTE | 2017-03-15 15:12 | RADIOLOGY REPORT (SQ) ---
EXAM DESCRIPTION: ACUTE ABDOMEN SERIES COMPLETED DATE/TIME: 03/15/2017 3:05 pm REASON FOR STUDY: abd pain COMPARISON: None. NUMBER OF VIEWS: Three views. TECHNIQUE: Frontal chest, supine abdomen and upright/decubitus abdomen radiographic images acquired. LIMITATIONS: None. FINDINGS: CHEST: Lungs clear of infiltrates. FREE AIR: None. No abnormal gas collections. BOWEL GAS PATTERN: Nonobstructive pattern. No dilated loops or air fluid levels. CALCIFICATIONS: No suspicious calcifications. HARDWARE: None in the abdomen. SOFT TISSUES: No gross mass or suggestion of organomegaly. BONES: No acute fracture. No worrisome bone lesions. OTHER: No other significant finding. IMPRESSION: NO RADIOGRAPHIC EVIDENCE FOR ACUTE ABDOMINAL DISEASE. TECHNICAL DOCUMENTATION: JOB ID: [id number] [employer]- All Rights Reserved
[2017-03-15 15:28] LABS: APPEARANCE,URINE CLEAR; BILIRUBIN,URINE NEGATIVE (NEGATIVE); GLUCOSE, URINE >=500 mg/dL (NEGATIVE); KETONES,URINE NEGATIVE (NEGATIVE); LEUKOCYTE ESTERASE,URINE NEGATIVE (NEGATIVE); NITRITE,URINE NEGATIVE (NEGATIVE); PROTEIN,URINE NEGATIVE (NEGATIVE); URINE SPECIFIC GRAVITY 1.033; UROBILINOGEN,URINE NEGATIVE mg/dL (<2.0)
[2017-03-15 15:41] LABS: ABSOLUTE BASOPHILS # (AUTO) 0.1 10^3/uL (0.0-0.2); ABSOLUTE EOSINOPHILS # (AUTO) 0.1 10^3/uL (0.0-0.6); ABSOLUTE LYMPHOCYTES (AUTO) 3.4 10^3/uL (0.5-4.7); ABSOLUTE MONOCYTES (AUTO) 0.9 10^3/uL (0.1-1.4); ABSOLUTE NEUT (AUTO) 8.8 10^3/uL (1.7-8.2); BASOPHILS % (AUTO) 0.5 % (0-2); EOSINOPHILS % (AUTO) 0.5 % (0-6); HEMATOCRIT 43.3 % (36.0-47.0); HEMOGLOBIN 15.2 g/dL (12.0-15.5); HGB HCT DIFFERENCE 2.3; LYMPHOCYTES % (AUTO) 25.4 % (13-45); MEAN CORPUSCULAR HEMOGLOBIN 30.3 pg (27.0-33.4); MEAN CORPUSCULAR VOLUME 86 fl (80-97); MONOCYTES % (AUTO) 7.1 % (3-13); RED BLOOD COUNT 5.02 10^6/uL (3.72-5.28); RED CELL DISTRIBUTION WIDTH 12.8 % (11.5-14.0); SEGMENTED NEUTROPHILS % (AUTO) 66.5 % (42-78); WHITE BLOOD COUNT 13.2 10^3/uL (4.0-10.5)
[2017-03-15 16:00] LABS: ALANINE AMINOTRANSFERASE 43 U/L (9-52); ALBUMIN 4.9 g/dL (3.5-5.0); ALKALINE PHOSPHATASE 94 U/L (38-126); ANION GAP 15 (5-19); ASPARTATE AMINO TRANSFERASE 24 U/L (14-36); BILIRUBIN,DIRECT 0.4 mg/dL (0.0-0.4); BILIRUBIN,TOTAL 0.7 mg/dL (0.2-1.3); BLOOD UREA NITROGEN 17 mg/dL (7-20); CALCIUM 10.1 mg/dL (8.4-10.2); CARBON DIOXIDE 30 mmol/L (22-30); CHLORIDE 90 mmol/L (98-107); CREATININE RESULT 0.99 mg/dL (0.52-1.25); GLUCOSE 318 mg/dL (75-110); LIPASE 178.1 U/L (23-300); POTASSIUM 3.7 mmol/L (3.6-5.0); SODIUM 135.2 mmol/L (137-145); TOTAL PROTEIN 8.3 g/dL (6.3-8.2)
[2017-03-15 16:41] VITALS: BP 146/79
== END 2017-03-15 16:41 | disposition home or self-care (01) ==
LOC: ER 14:24
DX: G89.29 Other chronic pain (principal); R10.10 Upper abdominal pain, unspecified; D72.829 Elevated white blood cell count, unspecified; E11.65 Type 2 diabetes mellitus with hyperglycemia; I10 Essential (primary) hypertension; Z88.8 Allergy status to other drugs, medicaments and biological substances; Z87.19 Personal history of other diseases of the digestive system; Z90.49 Acquired absence of other specified parts of digestive tract; Z86.14 Personal history of Methicillin resistant Staphylococcus aureus infection
CPT/HCPCS: 99284; 96361; 96374; 96375; 36415; 83690; 85025; 81025; 80053; 81001; 74022; J1630; J1885; J7030

== ENCOUNTER 2017-05-02 05:41 | Inpatient (IN) | payer MEDICAID ==
[2017-05-02] MEDS ORDERED: NORMAL SALINE 1000 ML 1,000 ML IV ONE ×2 (05:59→22:39)
[2017-05-02 06:50] LABS: APPEARANCE,URINE SLIGHTLY-CLOUDY; BILIRUBIN,URINE NEGATIVE (NEGATIVE); GLUCOSE, URINE >=500 mg/dL (NEGATIVE); KETONES,URINE 20 mg/dL (NEGATIVE); LEUKOCYTE ESTERASE,URINE NEGATIVE (NEGATIVE); NITRITE,URINE NEGATIVE (NEGATIVE); PROTEIN,URINE NEGATIVE (NEGATIVE); URINE SPECIFIC GRAVITY 1.021; UROBILINOGEN,URINE NEGATIVE mg/dL (<2.0)
[2017-05-02] MEDS ORDERED: MORPHINE SULFATE 10 MG/ML INJ IV ONE ×2 (06:53→09:19)
[2017-05-02] MEDS ORDERED: ONDANSETRON HCL INJ/PF 4 MG/2 ML SDV IV ONE (06:53)
--- NOTE | 2017-05-02 07:02 | ER Document Report ---
ED General - General Chief Complaint: Abdominal Pain Stated Complaint: ABDOMINAL PAIN Time Seen by Provider: 05/02/17 06:52 TRAVEL OUTSIDE OF THE [place] IN LAST 30 DAYS: No - HPI Notes: 42 years old old female with a history of gastroparesis due to advanced diabetes , presents today with diffuse abdominal pain in moderate to severe in intensity. Associated with nausea and vomited a couple of times. Denies any diarrhea. Denies any constipation. Denies any fever chills or other constitutional symptoms. - Related Data Allergies/Adverse Reactions: metoclopramide HCl [From Reglan] Allergy (Unknown, Verified 03/15/17 14:27) Past Medical History - General Information source: Patient - Social History Smoking Status: Never Smoker Cigarette use (# per day): No Chew tobacco use (# tins/day): No Frequency of alcohol use: None Drug Abuse: None Family History: DM Patient has suicidal ideation: No Patient has homicidal ideation: No - Past Medical History Cardiac Medical History: Reports: Hx Hypercholesterolemia, Hx Hypertension Endocrine Medical History: Reports: Hx Diabetes Mellitus Type 1, Hx Diabetes Mellitus Type 2 Renal/ Medical History: Reports: Hx Renal Insufficiency. Denies: Hx Peritoneal Dialysis GI Medical History: Reports: Hx Gastroesophageal Reflux Disease Musculoskeltal Medical History: Reports Hx Arthritis - Hand Psychiatric Medical History: Reports: Hx Anxiety, Hx Bipolar Disorder, Hx Depression Infectious Medical History: Reports: Hx MRSA Past Surgical History: Reports: Hx Cholecystectomy - Immunizations Immunizations up to date: Yes Hx Diphtheria, Pertussis, Tetanus Vaccination: Yes - unknown Hx Pneumococcal Vaccination: 05/04/10 Review of Systems - Review of Systems Constitutional: No symptoms reported EENT: No symptoms reported Cardiovascular: No symptoms reported Respiratory: No symptoms reported Gastrointestinal: Abdominal pain Genitourinary: No symptoms reported Female Genitourinary: No symptoms reported Musculoskeletal: No symptoms reported Skin: No symptoms reported Physical Exam - Vital signs Vitals: Temp Pulse Resp BP Pulse Ox 97.9 F 125 H 19 150/90 H 100 05/02/17 05:52 05/02/17 05:52 05/02/17 05:52 05/02/17 05:52 05/02/17 05:52 - Notes Notes: General exam: Alert oriented 3, appears well, not in any acute distress, body habitus--she is not obese.--Normal habitus seems to be in acute pain.--. HEENT: Normocephalic atraumatic pupils were equal reactive to light extraocular muscles were within normal range. Neck is supple no JVD no lymphadenopathy. Oral mucosa-not erythematous, no lesions noted no tonsillar enlargement. Chest no lesions, nontraumatic, nontender. No deformity Lungs: Bilaterally clear breath sounds no rales or wheezing, no adventitial sounds,no dullness on percussion. Cardiovascular system: Normal S1-S2 no murmurs, no gallop. Regular rhythm. No peripheral edema over the lower extremities. Gastrointestinal: Normal appearance, positive bowel sounds in all 4 quadrants, no Hepatosplenomegaly, no obvious masses, no obvious abdominal bruit. No horseshoe dullness. Inguinal region: No masses or obvious inguinal hernia noted Genitourinary: Rectal exam: Nervous system: Alert oriented 3, no cranial nerve weakness, no focal neurological deficit noted. Sensation is intact over the lower extremities for pain and touch. Reflexes are 2+ over both patella. Upper extremities: No trauma as noted, normal range of motion for both shoulders ,elbows and wrist. Lower extremity: No traumas or deformities noted, normal range of motion for flexion extension abduction abduction of both hip joints, Normal flexion and extension of knee joint. Normal range of motion for plantarflexion dorsiflexion and eversion inversion for both ankles. Skin: No erythema, no edema, no obvious lesions noted Course - Re-evaluation Re-evalutation: 05/02/17 15:18 The case was discussed with her twice with the hospitalist, subsequently for the surgical list and currently surgically is going to evaluate her in the ER. - Vital Signs Vital signs: Temp Pulse Resp BP Pulse Ox 97.9 F 125 H 16 132/78 H 98 05/02/17 05:52 05/02/17 05:52 05/02/17 15:01 05/02/17 15:01 05/02/17 15:01 - Laboratory Result Diagrams: 05/02/17 06:55 05/02/17 06:55 Laboratory results interpreted by me: 05/02/17 05/02/17 05/02/17 06:15 06:55 06:55 WBC 23.4 H Seg Neuts % (Manual) 86 H Lymphocytes % (Manual) 8 L Abs Neuts (Manual) 20.1 H Carbon Dioxide 16 L Anion Gap 23 H Est GFR (Non-Af Amer) 53 L Glucose 361 H Calcium 10.5 H Direct Bilirubin 0.5 H Total Protein 8.8 H Albumin 5.2 H Amylase Urine Glucose (UA) >=500 H Urine Ketones 20 H 05/02/17 06:55 WBC Seg Neuts % (Manual) Lymphocytes % (Manual) Abs Neuts (Manual) Carbon Dioxide Anion Gap Est GFR (Non-Af Amer) Glucose Calcium Direct Bilirubin Total Protein Albumin Amylase 128 H Urine Glucose (UA) Urine Ketones - Diagnostic Test Radiology results interpreted by me: 05/02/17 14:00 Diagnostic report text EXAM DESCRIPTION: CT ABD/PELVIS WITH IV ORAL COMPLETED DATE/TIME: 05/02/2017 12:08 pm REASON FOR STUDY: Abdominal pain COMPARISON: 11/25/2015. TECHNIQUE: CT scan of the abdomen and pelvis performed with intravenous and oral contrast using helical scanning technique with dynamic intravenous contrast injection. Images reviewed with lung, soft tissue, and bone windows. Reconstructed coronal and sagittal MPR images reviewed. Delayed images for evaluation of the urinary system also acquired. All images stored on PACS. All CT scanners at this facility use dose modulation, iterative reconstruction, and/or weight based dosing when appropriate to reduce radiation dose to as low as reasonably achievable (ALARA). [facility]: Dose Right [facility]: CareDose [facility]: Dose Right [facility]: Teradose 4D [facility]: Cause.it CONTRAST TYPE AND DOSE: contrast/concentration: Isovue 370.00 mg/ml; Total Contrast Delivered: 98.0 ml; Total Saline Delivered: 72.0 ml RENAL FUNCTION: BUN 18 creatinine 1.14. RADIATION DOSE: . LIMITATIONS: None. FINDINGS: LOWER CHEST: No significant findings. No nodules or infiltrates. LIVER: Normal size. No masses. No dilated ducts. SPLEEN: Normal size. No focal lesions. PANCREAS: No masses. No significant calcifications. No adjacent inflammation or peripancreatic fluid collections. Pancreatic duct not dilated. GALLBLADDER: Surgically absent. ADRENAL GLANDS: No significant masses or asymmetry. RIGHT KIDNEY AND URETER: No solid masses. No significant calcification. No hydronephrosis or hydroureter. LEFT KIDNEY AND URETER: No solid masses. No significant calcification. No hydronephrosis or hydroureter. AORTA AND VESSELS: No aneurysm. No dissection. Renal arteries, SMA, celiac without stenosis. RETROPERITONEUM: No retroperitoneal adenopathy, hemorrhage or masses. BOWEL AND PERITONEAL CAVITY: No obstruction. No visualized masses. No free fluid. No inflammatory changes or thickening of bowel wall. APPENDIX: Normal. PELVIS: No significant masses. Normal bladder. No free fluid. ABDOMINAL WALL: No masses. No hernias. BONES: No significant or acute findings. OTHER: No other significant finding. IMPRESSION: NO SIGNIFICANT OR ACUTE FINDINGS IN THE ABDOMEN OR PELVIS. TECHNICAL DOCUMENTATION: JOB ID: [id number] Quality ID # [id number]: Final reports with documentation of one or more dose reduction techniques (e.g., Automated exposure control, adjustment of the mA and/or kV according to patient size, use of iterative reconstruction technique) 2010 [employer]- All Rights Reserved Dictated by: ANITA RAMIREZ MD [id number] CC: BEL DOBBS MD > 05/02/17 14:01 Diagnostic report text EXAM DESCRIPTION: ACUTE ABDOMEN SERIES COMPLETED DATE/TIME: 05/02/2017 7:42 am REASON FOR STUDY: Abdominal pain COMPARISON: 03/15/2017. NUMBER OF VIEWS: Three views. TECHNIQUE: Frontal chest, supine abdomen and upright/decubitus abdomen radiographic images acquired. LIMITATIONS: None. FINDINGS: CHEST: Lungs clear of infiltrates. FREE AIR: None. No abnormal gas collections. BOWEL GAS PATTERN: Nonobstructive pattern. No dilated loops or air fluid levels. CALCIFICATIONS: No suspicious calcifications. HARDWARE: None in the abdomen. SOFT TISSUES: No gross mass or suggestion of organomegaly. BONES: No acute fracture. No worrisome bone lesions. OTHER: No other significant finding. IMPRESSION: NO RADIOGRAPHIC EVIDENCE FOR ACUTE ABDOMINAL DISEASE. TECHNICAL DOCUMENTATION: JOB ID: [id number] [employer]- All Rights Reserved Dictated by: ANITA RAMIREZ MD [id number] CC: BEL DOBBS MD > Diagnostic report text EXAM DESCRIPTION: ACUTE ABDOMEN SERIES COMPLETED DATE/TIME: 05/02/2017 7:42 am REASON FOR STUDY: Abdominal pain COMPARISON: 03/15/2017. NUMBER OF VIEWS: Three views. TECHNIQUE: Frontal chest, supine abdomen and upright/decubitus abdomen radiographic images acquired. LIMITATIONS: None. FINDINGS: CHEST: Lungs clear of infiltrates. FREE AIR: None. No abnormal gas collections. BOWEL GAS PATTERN: Nonobstructive pattern. No dilated loops or air fluid levels. CALCIFICATIONS: No suspicious calcifications. HARDWARE: None in the abdomen. SOFT TISSUES: No gross mass or suggestion of organomegaly. BONES: No acute fracture. No worrisome bone lesions. OTHER: No other significant finding. IMPRESSION: NO RADIOGRAPHIC EVIDENCE FOR ACUTE ABDOMINAL DISEASE. TECHNICAL DOCUMENTATION: JOB ID: [id number] [employer]- All Rights Reserved Dictated by: ANITA RAMIREZ MD [id number] CC: BEL DOBBS MD > Discharge - Discharge Clinical Impression: Gastroparesis due to DM, Acute abdominal pain Diabetes mellitus type 1, uncontrolled, insulin dependent Qualifiers: Diabetes mellitus complication status: with unspecified complications Qualified Code(s): E10.8 - Type 1 diabetes mellitus with unspecified complications; E10.65 - Type 1 diabetes mellitus with hyperglycemia; E10.65 - Type 1 diabetes mellitus with hyperglycemia; E10.65 - Type 1 diabetes mellitus with hyperglycemia; E10.65 - Type 1 diabetes mellitus with hyperglycemia Condition: Fair Disposition: ADMITTED INPATIENT Admitting Provider: Suzanne Trevino
[2017-05-02 07:21] LABS: HEMATOCRIT 41.1 % (36.0-47.0); HGB HCT DIFFERENCE 0.9; MEAN CORPUSCULAR HEMOGLOBIN 29.2 pg (27.0-33.4); MEAN CORPUSCULAR VOLUME 86 fl (80-97); RED BLOOD COUNT 4.79 10^6/uL (3.72-5.28); RED CELL DISTRIBUTION WIDTH 13.2 % (11.5-14.0); WHITE BLOOD COUNT 23.4 10^3/uL (4.0-10.5)
[2017-05-02 07:35] LABS: BLOOD UREA NITROGEN 18 mg/dL (7-20)
[2017-05-02 07:50] LABS: BASOPHILS % (MANUAL) 0 % (0-2); EOSINOPHILS % (MANUAL) 0 % (0-6); LYMPHOCYTES % (MANUAL) 8 % (13-45); TOTAL CELLS COUNTED 100
[2017-05-02 07:51] LABS: ALANINE AMINOTRANSFERASE 27 U/L (9-52); ALBUMIN 5.2 g/dL (3.5-5.0); ALKALINE PHOSPHATASE 116 U/L (38-126); ANION GAP 23 (5-19); ASPARTATE AMINO TRANSFERASE 24 U/L (14-36); BILIRUBIN,DIRECT 0.5 mg/dL (0.0-0.4); BILIRUBIN,TOTAL 0.8 mg/dL (0.2-1.3); CALCIUM 10.5 mg/dL (8.4-10.2); CARBON DIOXIDE 16 mmol/L (22-30); CHLORIDE 100 mmol/L (98-107); CREATININE RESULT 1.14 mg/dL (0.52-1.25); GLUCOSE 361 mg/dL (75-110); POTASSIUM 4.3 mmol/L (3.6-5.0); RBC MORPHOLOGY COMMENT NORMO-CYTIC/CHROMIC; SODIUM 139.3 mmol/L (137-145); TOTAL PROTEIN 8.8 g/dL (6.3-8.2); TOXIC GRANULATION SLIGHT
--- NOTE | 2017-05-02 08:13 | RADIOLOGY REPORT (SQ) ---
EXAM DESCRIPTION: ACUTE ABDOMEN SERIES COMPLETED DATE/TIME: 05/02/2017 7:42 am REASON FOR STUDY: Abdominal pain COMPARISON: 03/15/2017. NUMBER OF VIEWS: Three views. TECHNIQUE: Frontal chest, supine abdomen and upright/decubitus abdomen radiographic images acquired. LIMITATIONS: None. FINDINGS: CHEST: Lungs clear of infiltrates. FREE AIR: None. No abnormal gas collections. BOWEL GAS PATTERN: Nonobstructive pattern. No dilated loops or air fluid levels. CALCIFICATIONS: No suspicious calcifications. HARDWARE: None in the abdomen. SOFT TISSUES: No gross mass or suggestion of organomegaly. BONES: No acute fracture. No worrisome bone lesions. OTHER: No other significant finding. IMPRESSION: NO RADIOGRAPHIC EVIDENCE FOR ACUTE ABDOMINAL DISEASE. TECHNICAL DOCUMENTATION: JOB ID: [id number] [employer]- All Rights Reserved
[2017-05-02 08:20] LABS: URINE BARBITURATES SCREEN NEGATIVE; URINE METHADONE SCREEN NEGATIVE; URINE OPIATES LOW NEGATIVE; URINE PHENCYCLIDINE SCREEN NEGATIVE
--- NOTE | 2017-05-02 09:08 | EKG REPORT ---
SEVERITY:- BORDERLINE ECG - SINUS TACHYCARDIA BORDERLINE R WAVE PROGRESSION, ANTERIOR LEADS BORDERLINE T WAVE ABNORMALITIES : Confirmed by: Opal Garcia 02-May-2017 09:07:26
--- NOTE | 2017-05-02 12:21 | RADIOLOGY REPORT (SQ) ---
EXAM DESCRIPTION: CT ABD/PELVIS WITH IV ORAL COMPLETED DATE/TIME: 05/02/2017 12:08 pm REASON FOR STUDY: Abdominal pain COMPARISON: 11/25/2015. TECHNIQUE: CT scan of the abdomen and pelvis performed with intravenous and oral contrast using reji manna scanning technique with dynamic intravenous contrast injection. Images reviewed with lung, soft t issue, and bone windows. Reconstructed coronal and sagittal MPR images reviewed. Delayed images for e valuation of the urinary system also acquired. All images stored on PACS. All CT scanners at this facility use dose modulation, iterative reconstruction, and/or weight based d osing when appropriate to reduce radiation dose to as low as reasonably achievable (ALARA). [facility]: Dose Right [facility]: CareDose [facility]: Dose Right [facility]: Teradose 4D [facility]: [employer] CONTRAST TYPE AND DOSE: contrast/concentration: Isovue 370.00 mg/ml; Total Contrast Delivered: 98.0 ml; Total Saline Delivered: 72.0 ml RENAL FUNCTION: BUN 18 creatinine 1.14. RADIATION DOSE: . LIMITATIONS: None. FINDINGS: LOWER CHEST: No significant findings. No nodules or infiltrates. LIVER: Normal size. No masses. No dilated ducts. SPLEEN: Normal size. No focal lesions. PANCREAS: No masses. No significant calcifications. No adjacent inflammation or peripancreatic fluid collections. Pancreatic duct not dilated. GALLBLADDER: Surgically absent. ADRENAL GLANDS: No significant masses or asymmetry. RIGHT KIDNEY AND URETER: No solid masses. No significant calcification. No hydronephrosis or hydroure ter. LEFT KIDNEY AND URETER: No solid masses. No significant calcification. No hydronephrosis or hydrouret er. AORTA AND VESSELS: No aneurysm. No dissection. Renal arteries, SMA, celiac without stenosis. RETROPERITONEUM: No retroperitoneal adenopathy, hemorrhage or masses. BOWEL AND PERITONEAL CAVITY: No obstruction. No visualized masses. No free fluid. No inflammatory ch anges or thickening of bowel wall. APPENDIX: Normal. PELVIS: No significant masses. Normal bladder. No free fluid. ABDOMINAL WALL: No masses. No hernias. BONES: No significant or acute findings. OTHER: No other significant finding. IMPRESSION: NO SIGNIFICANT OR ACUTE FINDINGS IN THE ABDOMEN OR PELVIS. TECHNICAL DOCUMENTATION: JOB ID: [id number] Quality ID # [id number]: Final reports with documentation of one or more dose reduction techniques (e.g., Au tomated exposure control, adjustment of the mA and/or kV according to patient size, use of iterative reconstruction technique) 2010 [employer]- All Rights Reserved
--- NOTE | 2017-05-02 16:02 | PDOC CONSULTATION ---
History of Present Illness Patient complains of: Abdominal pain History of Present Illness: RUTH CA is a 42 year old female with history of unexplained abdominal pain with nausea and vomiting over the past couple of years status post extensive workup including gastroenterology evaluation here and at [facility]. Patient was noted with evidence of gastroparesis but no other significant abdomen abnormality. She has had a laparoscopic cholecystectomy in the past. She denies any history of alcohol nor substance abuse. Patient now presents with acute onset of subxiphoid abdominal pain that began yesterday and has persisted until arrival in the emergency department. Since she has received morphine the pain has completely resolved. She has had a associated bilious emesis. No diarrhea. Has not had a bowel movement in 2 days. Currently she is pain-free. No fever. Patient underwent a contrasted abdominal pelvic CT scan which demonstrated no abnormalities. Specifically no abnormalities were noted in the mesenteric vessels. No bowel wall abnormalities. Past Medical History Cardiac Medical History: Reports: Hyperlipidema, Hypertension Endocrine Medical History: Reports: Diabetes Mellitus Type 1, Diabetes Mellitus Type 2 GI Medical History: Reports: Gastroesophageal Reflux Disease Musculoskeltal Medical History: Reports: Arthritis - Hand Psychiatric Medical History: Reports: Bipolar Disorder, Depression Hematology: Reports: Anemia Infectious Medical History: Reports: Methicillin-Resistant Staph Aureus Past Surgical History Past Surgical History: Reports: Cholecystectomy Social History Smoking Status: Never Smoker Frequency of Alcohol Use: None Hx Recreational Drug Use: No Drugs: None Hx Prescription Drug Abuse: No Family History Family History: DM Parental Family History Reviewed: No Children Family History Reviewed: No Sibling(s) Family History Reviewed.: No Medication/Allergy Home Medications: Amlodipine Besylate [Norvasc 10 mg Tablet] 10 mg PO DAILY 12/30/16 Clonidine [Catapres-Tts 2 (0.2 mg/24 Hr) Transderm [facility]] 1 patch TD FR@1000 PRN 12/30/16 Dexlansoprazole [Dexilant 60 mg Capsule] 60 mg PO DAILY 12/30/16 Insulin Glargine,Hum.rec.anlog [Lantus Solostar] 15 unit SQ QPM 12/30/16 Insulin Lispro [Humalog Kwikpen U-100] 0 units SUBCUT .SLD SCALE PRN 12/30/16 Lisinopril [Prinivil] 20 mg PO DAILY 12/30/16 Amitriptyline HCl [Elavil 50 Mg Tablet] 50 mg PO QHS #30 tablet 12/31/16 Lidocaine HCl [Lidocaine HCl Viscous] 15 ml PO BID #100 ml 01/25/17 Haloperidol [Haldol 5 mg Tablet] 5 mg PO DAILY PRN #10 tablet 02/06/17 Ondansetron [Zofran Odt 4 mg Tablet] 1 - 2 tab PO Q4H PRN #15 tab.rapdis Allergies/Adverse Reactions: metoclopramide HCl [From Reglan] Allergy (Unknown, Verified 03/15/17 14:27) Physical Exam Vital Signs: Temp Pulse Resp BP Pulse Ox 97.9 F 125 H 16 132/78 H 98 05/02/17 05:52 05/02/17 05:52 05/02/17 15:01 05/02/17 15:01 05/02/17 15:01 Intake & Output 05/01/17 05/02/17 05/03/17 06:59 06:59 06:59 Weight 64.6 kg General appearance: PRESENT: no acute distress, cooperative Eye exam: PRESENT: conjunctiva pink Neck exam: PRESENT: other - Supple with no tenderness. Respiratory exam: PRESENT: clear to auscultation bernardo Cardiovascular exam: PRESENT: tachycardia - Heart rate 106 GI/Abdominal exam: PRESENT: other - Soft, nondistended, nontender to palpation. No palpable abnormal masses. Extremities exam: PRESENT: other - No swelling. Neurological exam: PRESENT: alert, awake Psychiatric exam: PRESENT: appropriate affect Skin exam: PRESENT: warm Results Laboratory Results: 05/02/17 06:55 05/02/17 06:55 05/02/17 05/02/17 05/02/17 06:15 06:55 06:55 WBC 23.4 H RBC 4.79 Hgb 14.0 Hct 41.1 MCV 86 MCH 29.2 MCHC 34.0 RDW 13.2 Plt Count 352 Seg Neutrophils % Not Reportable Lymphocytes % Not Reportable Monocytes % Not Reportable Eosinophils % Not Reportable Basophils % Not Reportable Absolute Neutrophils Not Reportable Absolute Lymphocytes Not Reportable Absolute Monocytes Not Reportable Absolute Eosinophils Not Reportable Absolute Basophils Not Reportable Sodium 139.3 Potassium 4.3 Chloride 100 Carbon Dioxide 16 L Anion Gap 23 H BUN 18 Creatinine 1.14 Est GFR ( Amer) > 60 Est GFR (Non-Af Amer) 53 L Glucose 361 H Lactic Acid Calcium 10.5 H Total Bilirubin 0.8 AST 24 ALT 27 Alkaline Phosphatase 116 Total Protein 8.8 H Albumin 5.2 H Amylase Lipase Urine Color YELLOW Urine Appearance SLIGHTLY-CLOUDY Urine pH 5.0 Ur Specific [place] 1.021 Urine Protein NEGATIVE Urine Glucose (UA) >=500 H Urine Ketones 20 H Urine Blood NEGATIVE Urine Nitrite NEGATIVE Ur Leukocyte Esterase NEGATIVE Urine WBC (Auto) 2 Urine RBC (Auto) 0 05/02/17 05/02/17 06:55 11:18 WBC RBC Hgb Hct MCV MCH MCHC RDW Plt Count Seg Neutrophils % Lymphocytes % Monocytes % Eosinophils % Basophils % Absolute Neutrophils Absolute Lymphocytes Absolute Monocytes Absolute Eosinophils Absolute Basophils Sodium Potassium Chloride Carbon Dioxide Anion Gap BUN Creatinine Est GFR ( Amer) Est GFR (Non-Af Amer) Glucose Lactic Acid 1.4 Calcium Total Bilirubin AST ALT Alkaline Phosphatase Total Protein Albumin Amylase 128 H Lipase 111.0 Urine Color Urine Appearance Urine pH Ur Specific [place] Urine Protein Urine Glucose (UA) Urine Ketones Urine Blood Urine Nitrite Ur Leukocyte Esterase Urine WBC (Auto) Urine RBC (Auto) Impressions: Abdomen/Pelvis CT 05/02/17 00:00 IMPRESSION: NO SIGNIFICANT OR ACUTE FINDINGS IN THE ABDOMEN OR PELVIS. Acute Abdomen Series 05/02/17 06:55 IMPRESSION: NO RADIOGRAPHIC EVIDENCE FOR ACUTE ABDOMINAL DISEASE. Assessment & Plan - Diagnosis (1) Abdominal pain Qualifiers: Abdominal location: epigastric Qualified Code(s): R10.13 - Epigastric pain Is this a current diagnosis for this admission?: Yes Plan: Acute severe subxiphoid abdominal pain of unclear etiology. She has had multiple episodes of this pain over the past couple of years. The fact that the pain resolved argues against active mesenteric ischemia. Abdominal exam is normal at this time. I do not have a explanation for her pain but I do not have an indication for operative intervention at this time. Patient with elevated glucose. Recommend admission to medical service for IV hydration and glucose control. Surgical service will follow along with the medical service.
[2017-05-02] MEDS ORDERED: OLANZAPINE INJ/PF 10 MG SDV IM PRN (16:12)
[2017-05-02] MEDS ORDERED: ONDANSETRON HCL INJ/PF 4 MG/2 ML SDV IV PRN (16:12)
[2017-05-02] MEDS ORDERED: PROMETHAZINE HCL INJ 25 MG/1 ML VIAL IV PRN (16:12)
[2017-05-02] MEDS ORDERED: NORMAL SALINE 1000 ML 1,000 ML IV PRN (16:12)
[2017-05-02] MEDS ORDERED: ACETAMINOPHEN 325 MG TABLET PO PRN (16:12)
[2017-05-02] MEDS ORDERED: GLUCAGON,HUMAN RECOMB 1 MG INJ IM PRN (16:22)
[2017-05-02] MEDS ORDERED: DEXTROSE 40% GEL 15 GM TUBE PO PRN ×2 (16:22)
[2017-05-02] MEDS ORDERED: DEXTROSE 50%-WATER 25 GM/50 ML DISP.SYRIN IV PRN ×2 (16:22)
--- NOTE | 2017-05-02 17:34 | PDOC H&P ---
History of Present Illness Admission Date/PCP: 05/02/2017 History of Present Illness: Kasey Biswas: This is a 42 years old black female who presented to emergency room complaining of abdominal pain accompanied by nausea and vomiting since last night. Patient refers that she has been having the problem for several years and had been extensively evaluated. She had undergone multiple CTs of the abdomen and pelvis. She admits having a history of diabetes which is complicated by gastroparesis. She is currently on Lantus and uses NovoLog sliding scale. During the course of evaluation in emergency room white blood cell count was noted to be elevated with no obvious source of infectious process. After reviewing old charts, we prompted to admit patient under observation status primarily for the purpose of hydration and controlling of blood sugar. Past Medical History Cardiac Medical History: Reports: Hyperlipidema, Hypertension Pulmonary Medical History: Reports: None EENT Medical History: Reports: None Neurological Medical History: Reports: None Endocrine Medical History: Reports: Diabetes Mellitus Type 2 Renal/ Medical History: Reports: None Malignancy Medical History: Reports: None GI Medical History: Reports: None, Gastroesophageal Reflux Disease Musculoskeltal Medical History: Reports: Arthritis - Hand Skin Medical History: Reports: Eczema Psychiatric Medical History: Reports: Bipolar Disorder, Depression Traumatic Medical History: Reports: None Hematology: Reports: Anemia Infectious Medical History: Reports: Methicillin-Resistant Staph Aureus Past Surgical History Past Surgical History: Reports: Cholecystectomy Social History Information Source: Patient Smoking Status: Never Smoker Frequency of Alcohol Use: None Hx Recreational Drug Use: No Drugs: None Hx Prescription Drug Abuse: No - Advance Directive Resuscitation Status: Full Code Family History Family History: DM Parental Family History Reviewed: Yes Children Family History Reviewed: Yes Sibling(s) Family History Reviewed.: Yes Medication/Allergy Home Medications: Amlodipine Besylate [Norvasc 10 mg Tablet] 10 mg PO QAM 05/02/17 Clonidine [Catapres-TTS 2 (0.2 mg/day) TD Patch] 1 patch TD WE@1000 05/02/17 Dexlansoprazole [Dexilant 60 mg Capsule] 60 mg PO DAILY 05/02/17 Insulin Glargine,Hum.rec.anlog [Lantus Solostar] 15 unit SQ QAM 05/02/17 Insulin Lispro [Humalog Insulin 100 Unit/1 ml 3 ml Vial] 0 unit SUBCUT .SLD SCALE 05/02/17 Lisinopril [Prinivil 10 mg Tablet] 10 mg PO DAILY 05/02/17 Allergies/Adverse Reactions: metoclopramide HCl [From Reglan] Allergy (Unknown, Verified 03/15/17 14:27) Review of Systems Constitutional: ABSENT: chills, fever(s), headache(s), night sweats Eyes: ABSENT: visual disturbances Ears: ABSENT: hearing changes Nose, Mouth, and Throat: ABSENT: mouth pain, sore throat Cardiovascular: ABSENT: chest pain, edema, orthropnea, palpitations Gastrointestinal: PRESENT: abdominal pain, bloating, nausea, vomiting. ABSENT: diarrhea Genitourinary: ABSENT: dysuria, hematuria Musculoskeletal: ABSENT: deformity, joint swelling Neurological: ABSENT: focal weakness Endocrine: PRESENT: polydipsia, polyphagia, polyuria Physical Exam Vital Signs: Temp Pulse Resp BP Pulse Ox 97.9 F 125 H 20 133/91 H 97 05/02/17 05:52 05/02/17 05:52 05/02/17 16:31 05/02/17 16:31 05/02/17 16:31 Intake & Output 05/01/17 05/02/17 05/03/17 06:59 06:59 06:59 Weight 64.6 kg General appearance: PRESENT: no acute distress, cooperative, obese Head exam: PRESENT: atraumatic, normocephalic Eye exam: PRESENT: EOMI, PERRLA Ear exam: PRESENT: normal external ear exam, TM's normal bilaterally Mouth exam: PRESENT: moist, neck supple Neck exam: PRESENT: full ROM. ABSENT: JVD, tenderness, thyromegaly Respiratory exam: PRESENT: clear to auscultation bernardo Cardiovascular exam: PRESENT: RRR. ABSENT: diastolic murmur, systolic murmur Vascular exam: PRESENT: normal capillary refill GI/Abdominal exam: PRESENT: distended, normal bowel sounds, soft. ABSENT: ascites, tenderness Extremities exam: PRESENT: full ROM. ABSENT: joint swelling, pedal edema Neurological exam: PRESENT: alert, oriented to person, oriented to place, oriented to time Psychiatric exam: PRESENT: appropriate affect, normal mood. ABSENT: agitated Skin exam: PRESENT: normal color Results Laboratory Results: 05/02/17 06:55 05/02/17 06:55 05/02/17 05/02/17 05/02/17 06:15 06:55 06:55 WBC 23.4 H RBC 4.79 Hgb 14.0 Hct 41.1 MCV 86 MCH 29.2 MCHC 34.0 RDW 13.2 Plt Count 352 Seg Neutrophils % Not Reportable Lymphocytes % Not Reportable Monocytes % Not Reportable Eosinophils % Not Reportable Basophils % Not Reportable Absolute Neutrophils Not Reportable Absolute Lymphocytes Not Reportable Absolute Monocytes Not Reportable Absolute Eosinophils Not Reportable Absolute Basophils Not Reportable Sodium 139.3 Potassium 4.3 Chloride 100 Carbon Dioxide 16 L Anion Gap 23 H BUN 18 Creatinine 1.14 Est GFR ( Amer) > 60 Est GFR (Non-Af Amer) 53 L Glucose 361 H Lactic Acid Calcium 10.5 H Total Bilirubin 0.8 AST 24 ALT 27 Alkaline Phosphatase 116 Total Protein 8.8 H Albumin 5.2 H Amylase Lipase Urine Color YELLOW Urine Appearance SLIGHTLY-CLOUDY Urine pH 5.0 Ur Specific [place] 1.021 Urine Protein NEGATIVE Urine Glucose (UA) >=500 H Urine Ketones 20 H Urine Blood NEGATIVE Urine Nitrite NEGATIVE Ur Leukocyte Esterase NEGATIVE Urine WBC (Auto) 2 Urine RBC (Auto) 0 05/02/17 05/02/17 06:55 11:18 WBC RBC Hgb Hct MCV MCH MCHC RDW Plt Count Seg Neutrophils % Lymphocytes % Monocytes % Eosinophils % Basophils % Absolute Neutrophils Absolute Lymphocytes Absolute Monocytes Absolute Eosinophils Absolute Basophils Sodium Potassium Chloride Carbon Dioxide Anion Gap BUN Creatinine Est GFR ( Amer) Est GFR (Non-Af Amer) Glucose Lactic Acid 1.4 Calcium Total Bilirubin AST ALT Alkaline Phosphatase Total Protein Albumin Amylase 128 H Lipase 111.0 Urine Color Urine Appearance Urine pH Ur Specific [place] Urine Protein Urine Glucose (UA) Urine Ketones Urine Blood Urine Nitrite Ur Leukocyte Esterase Urine WBC (Auto) Urine RBC (Auto) Impressions: Abdomen/Pelvis CT 05/02/17 00:00 IMPRESSION: NO SIGNIFICANT OR ACUTE FINDINGS IN THE ABDOMEN OR PELVIS. Acute Abdomen Series 05/02/17 06:55 IMPRESSION: NO RADIOGRAPHIC EVIDENCE FOR ACUTE ABDOMINAL DISEASE. Assessment & Plan - Diagnosis (1) Gastroparesis due to DM Is this a current diagnosis for this admission?: Yes Plan: Likely culprit of her presentation in the setting of uncontrolled diabetes mellitus. At the time of evaluation patient had improved. The patient has been made aware that we were going to limit the use of opioids since condition can worsen. Will treat nausea and vomiting aggressively using Zofran, Phenergan and if not responding Zyprexa IM. Also will provide management of diabetes as I had seen good results (2) Epigastric abdominal pain Is this a current diagnosis for this admission?: Yes Plan: Likely epigastric pain relates to diabetic gastroparesis. At the time of evaluation pain had improved after patient was medicated with morphine IV. As previously stated will try to limit the use of opioids and will manage nausea and vomiting (3) Leukocytosis Qualifiers: Leukocytosis type: unspecified Qualified Code(s): D72.829 - Elevated white blood cell count, unspecified Is this a current diagnosis for this admission?: Yes Plan: Due to your margination of white blood cell count in the setting of stress. 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 Will place on pre-meal lispro and will cover also with lispro sliding scale. Will request bedside glucose before meals and at bedtime (6) Metabolic acidosis Is this a current diagnosis for this admission?: Yes Plan: These appear to be due to volume contraction and vomiting - Time Time Spent: 50 to 70 Minutes Medications reviewed and adjusted accordingly: Yes Anticipated discharge: Home Within: within 24 hours - Inpatient Certification Based on my medical assessment, after consideration of the patient's comorbidities, presenting symptoms, or acuity I expect that the services needed warrant INPATIENT care.: No I certify that my determination is in accordance with my understanding of Medicare's requirements for reasonable and necessary INPATIENT services [42 CFR 412.3e].: Yes Medical Necessity: Need for Pain Control
[2017-05-02] MEDS: INSULIN LISPRO 100 UNIT/ML 3 ML VIAL SUBCUT PRN (17:57)
[2017-05-02] MEDS: OXYCODONE-ACETAMINOPHEN 5-325 MG TABLET PO PRN (18:28)
[2017-05-02] MEDS: HEPARIN SOD (PORCINE) 5,000 UNIT/ML 1 ML SYRINGE SUBCUT SCH (21:51)
[2017-05-02] MEDS: AMITRIPTYLINE HCL 50 MG TABLET PO SCH (21:51)
[2017-05-02] MEDS ORDERED: INSULIN GLARGINE,HUM.REC.ANLOG 300 UNIT/3 ML INSULN.PEN SUBCUT SCH (22:00)
[2017-05-02] MEDS ORDERED: RINGERS SOLUTION,LACTATED 1,000 ML IV ONE (23:00)
[2017-05-02] MEDS: INSULIN GLARGINE,HUM.REC.ANLOG 300 UNIT/3 ML INSULN.PEN SUBCUT SCH (23:00)
[2017-05-02 23:16] LABS: ANION GAP 19 (5-19); BLOOD UREA NITROGEN 15 mg/dL (7-20); CALCIUM 9.7 mg/dL (8.4-10.2); CARBON DIOXIDE 19 mmol/L (22-30); CHLORIDE 102 mmol/L (98-107); CREATININE RESULT 0.93 mg/dL (0.52-1.25); GLUCOSE 200 mg/dL (75-110); SODIUM 139.5 mmol/L (137-145)
[2017-05-03] MEDS ORDERED: INFLUENZA ADLT QUAD (36MOS+) 2017-18 VAC 0.5 ML SYR IM PRN (00:08)
[2017-05-03] MEDS: OXYCODONE-ACETAMINOPHEN 5-325 MG TABLET PO PRN ×2 (02:40→20:23)
[2017-05-03] MEDS ORDERED: DICYCLOMINE HCL 20 MG TABLET PO ONE (04:00)
[2017-05-03] MEDS ORDERED: HALOPERIDOL LACTATE INJ 5 MG/1 ML VIAL IV ONE ×2 (05:01→23:45)
[2017-05-03 05:12] LABS: ABSOLUTE BASOPHILS # (AUTO) 0.1 10^3/uL (0.0-0.2); ABSOLUTE LYMPHOCYTES (AUTO) 1.8 10^3/uL (0.5-4.7); ABSOLUTE MONOCYTES (AUTO) 0.8 10^3/uL (0.1-1.4); ABSOLUTE NEUT (AUTO) 13.4 10^3/uL (1.7-8.2); BASOPHILS % (AUTO) 0.8 % (0-2); EOSINOPHILS % (AUTO) 0.1 % (0-6); HEMATOCRIT 41.9 % (36.0-47.0); HEMOGLOBIN 14.2 g/dL (12.0-15.5); HGB HCT DIFFERENCE 0.7; LYMPHOCYTES % (AUTO) 11.2 % (13-45); MEAN CORPUSCULAR HEMOGLOBIN 29.5 pg (27.0-33.4); MEAN CORPUSCULAR VOLUME 87 fl (80-97); RED BLOOD COUNT 4.84 10^6/uL (3.72-5.28); RED CELL DISTRIBUTION WIDTH 13.3 % (11.5-14.0); SEGMENTED NEUTROPHILS % (AUTO) 82.9 % (42-78); WHITE BLOOD COUNT 16.2 10^3/uL (4.0-10.5)
[2017-05-03] MEDS: HEPARIN SOD (PORCINE) 5,000 UNIT/ML 1 ML SYRINGE SUBCUT SCH ×3 (05:17→23:00)
[2017-05-03 07:52] LABS: ANION GAP 16 (5-19); BLOOD UREA NITROGEN 13 mg/dL (7-20); CALCIUM 9.7 mg/dL (8.4-10.2); CARBON DIOXIDE 20 mmol/L (22-30); CHLORIDE 101 mmol/L (98-107); GLUCOSE 179 mg/dL (75-110); MAGNESIUM 1.9 mg/dL (1.6-2.3); POTASSIUM 4.3 mmol/L (3.6-5.0); SODIUM 136.8 mmol/L (137-145)
[2017-05-03] MEDS ORDERED: CLONIDINE 0.2 MG/24 HR PATCH.TDWK TD PRN (10:00)
[2017-05-03] MEDS ORDERED: DICYCLOMINE HCL 20 MG TABLET PO SCH (10:00)
[2017-05-03] MEDS ORDERED: POTASSI CL 20 MEQ/NS 1L 1,000 ML IV PRN (11:22)
[2017-05-03] MEDS: AMLODIPINE BESYLATE 10 MG TABLET PO SCH (12:19)
[2017-05-03] MEDS ORDERED: OLANZAPINE 5 MG TABLET PO ONE (12:30)
[2017-05-03] MEDS ORDERED: POTASSI CL 20 MEQ/D5-1/2NS 1L 1000 ML IV PRN (12:47)
--- NOTE | 2017-05-03 13:36 | PDOC PROGRESS REPORT ---
Subjective Progress Note for:: 05/03/17 Subjective:: Patient relates that she had a rough night last night because of pain. Complains that had not been able to pass urine yet ROS All organ systems have been reviewed and are negative except as seen subjective All significant laboratories and diagnostics have been reviewed Reason For Visit: ACUTE ON CHRONIC ABDOMINAL PAIN UNCONTROLLED Physical Exam Vital Signs: Temp Pulse Resp BP Pulse Ox 98.7 F 114 H 18 156/89 H 100 05/03/17 11:50 05/03/17 11:50 05/03/17 11:50 05/03/17 11:50 05/03/17 11:50 Intake & Output 05/02/17 05/03/17 05/04/17 06:59 06:59 06:59 Weight 64.6 kg General appearance: PRESENT: no acute distress, cooperative, obese Head exam: PRESENT: atraumatic, normocephalic Eye exam: PRESENT: EOMI, PERRLA Ear exam: PRESENT: normal external ear exam Mouth exam: PRESENT: moist Neck exam: PRESENT: full ROM, JVD. ABSENT: tenderness Respiratory exam: PRESENT: clear to auscultation bernardo Cardiovascular exam: PRESENT: RRR. ABSENT: diastolic murmur, systolic murmur Vascular exam: PRESENT: normal capillary refill GI/Abdominal exam: PRESENT: normal bowel sounds, soft. ABSENT: tenderness Extremities exam: PRESENT: joint swelling. ABSENT: pedal edema Musculoskeletal exam: PRESENT: full ROM Neurological exam: PRESENT: alert, oriented to person, oriented to place, oriented to time Skin exam: PRESENT: normal color Results Laboratory Results: 05/03/17 04:35 05/03/17 07:12 05/02/17 05/03/17 05/03/17 22:50 04:35 04:39 WBC 16.2 H RBC 4.84 Hgb 14.2 Hct 41.9 MCV 87 MCH 29.5 MCHC 34.0 RDW 13.3 Plt Count 293 Seg Neutrophils % 82.9 H Lymphocytes % 11.2 L Monocytes % 5.0 Eosinophils % 0.1 Basophils % 0.8 Absolute Neutrophils 13.4 H Absolute Lymphocytes 1.8 Absolute Monocytes 0.8 Absolute Eosinophils 0.0 Absolute Basophils 0.1 Sodium 139.5 Cancelled Potassium 4.0 Cancelled Chloride 102 Cancelled Carbon Dioxide 19 L Cancelled Anion Gap 19 Cancelled BUN 15 Cancelled Creatinine 0.93 Cancelled Est GFR ( Amer) > 60 Cancelled Est GFR (Non-Af Amer) > 60 Cancelled Glucose 200 H Cancelled Calcium 9.7 Cancelled Magnesium Cancelled 05/03/17 07:12 WBC RBC Hgb Hct MCV MCH MCHC RDW Plt Count Seg Neutrophils % Lymphocytes % Monocytes % Eosinophils % Basophils % Absolute Neutrophils Absolute Lymphocytes Absolute Monocytes Absolute Eosinophils Absolute Basophils Sodium 136.8 L Potassium 4.3 Chloride 101 Carbon Dioxide 20 L Anion Gap 16 BUN 13 Creatinine 0.90 Est GFR ( Amer) > 60 Est GFR (Non-Af Amer) > 60 Glucose 179 H Calcium 9.7 Magnesium 1.9 Impressions: Abdomen/Pelvis CT 05/02/17 00:00 IMPRESSION: NO SIGNIFICANT OR ACUTE FINDINGS IN THE ABDOMEN OR PELVIS. Acute Abdomen Series 05/02/17 06:55 IMPRESSION: NO RADIOGRAPHIC EVIDENCE FOR ACUTE ABDOMINAL DISEASE. Assessment & Plan - Diagnosis (1) Gastroparesis due to DM Is this a current diagnosis for this admission?: Yes Plan: Likely culprit of her presentation in the setting of uncontrolled diabetes mellitus. Symptoms wax and wane. She responded to Haldol last night. Will place patient on Zyprexa scheduled and will follow up response. Continue adjusting diabetes management (2) Epigastric abdominal pain Is this a current diagnosis for this admission?: Yes Plan: Likely epigastric pain relates to diabetic gastroparesis. Was supposed to get clear liquids and will reorder since she appears to be doing better. Avoid opioid use since can worsen gastroparesis (3) Leukocytosis Qualifiers: Leukocytosis type: unspecified Qualified Code(s): D72.829 - Elevated white blood cell count, unspecified Is this a current diagnosis for this admission?: Yes Plan: Due to your margination of white blood cell count in the setting of stress. Patient has had this problem in the past and work up had been negative. 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 Is this a current diagnosis for this admission?: Yes Plan: Continue present management but will watch for hypoglycemia due to poor oral intake (6) Metabolic acidosis Is this a current diagnosis for this admission?: Yes Plan: It appears to be due to volume contraction and vomiting - Time Time Spent with patient: 15-24 minutes Medications reviewed and adjusted accordingly: Yes Anticipated discharge: Home Within: within 48 hours - Inpatient Certification Based on my medical assessment, after consideration of the patient's comorbidities, presenting symptoms, or acuity I expect that the services needed warrant INPATIENT care.: Yes I certify that my determination is in accordance with my understanding of Medicare's requirements for reasonable and necessary INPATIENT services [42 CFR 412.3e].: Yes Medical Necessity: Need for Pain Control, Need for IV Antibiotics
[2017-05-03] MEDS: INSULIN LISPRO 100 UNIT/ML 3 ML VIAL SUBCUT SCH ×2 (15:24→16:36)
[2017-05-03] MEDS: INSULIN GLARGINE,HUM.REC.ANLOG 300 UNIT/3 ML INSULN.PEN SUBCUT SCH ×2 (15:24→23:01)
--- NOTE | 2017-05-03 17:07 | PDOC PROGRESS REPORT ---
Subjective Progress Note for:: 05/03/17 Subjective:: epigastric pains with N/V last night. Resolved this am. Reason For Visit: EPIGASTRIC PAIN,GASTROPARESIS Physical Exam Vital Signs: Temp Pulse Resp BP Pulse Ox 98.5 F 110 H 16 126/77 H 100 05/03/17 15:59 05/03/17 15:59 05/03/17 15:59 05/03/17 15:59 05/03/17 15:59 Intake & Output 05/02/17 05/03/17 05/04/17 06:59 06:59 06:59 Weight 64.6 kg Exam: Abdomen is soft and nontender Results Laboratory Results: 05/03/17 04:35 05/03/17 07:12 05/02/17 05/03/17 05/03/17 22:50 04:35 04:39 WBC 16.2 H RBC 4.84 Hgb 14.2 Hct 41.9 MCV 87 MCH 29.5 MCHC 34.0 RDW 13.3 Plt Count 293 Seg Neutrophils % 82.9 H Lymphocytes % 11.2 L Monocytes % 5.0 Eosinophils % 0.1 Basophils % 0.8 Absolute Neutrophils 13.4 H Absolute Lymphocytes 1.8 Absolute Monocytes 0.8 Absolute Eosinophils 0.0 Absolute Basophils 0.1 Sodium 139.5 Cancelled Potassium 4.0 Cancelled Chloride 102 Cancelled Carbon Dioxide 19 L Cancelled Anion Gap 19 Cancelled BUN 15 Cancelled Creatinine 0.93 Cancelled Est GFR ( Amer) > 60 Cancelled Est GFR (Non-Af Amer) > 60 Cancelled Glucose 200 H Cancelled Calcium 9.7 Cancelled Magnesium Cancelled 05/03/17 07:12 WBC RBC Hgb Hct MCV MCH MCHC RDW Plt Count Seg Neutrophils % Lymphocytes % Monocytes % Eosinophils % Basophils % Absolute Neutrophils Absolute Lymphocytes Absolute Monocytes Absolute Eosinophils Absolute Basophils Sodium 136.8 L Potassium 4.3 Chloride 101 Carbon Dioxide 20 L Anion Gap 16 BUN 13 Creatinine 0.90 Est GFR ( Amer) > 60 Est GFR (Non-Af Amer) > 60 Glucose 179 H Calcium 9.7 Magnesium 1.9 Impressions: Abdomen/Pelvis CT 05/02/17 00:00 IMPRESSION: NO SIGNIFICANT OR ACUTE FINDINGS IN THE ABDOMEN OR PELVIS. Acute Abdomen Series 05/02/17 06:55 IMPRESSION: NO RADIOGRAPHIC EVIDENCE FOR ACUTE ABDOMINAL DISEASE.
[2017-05-03] MEDS: AMITRIPTYLINE HCL 50 MG TABLET PO SCH (23:01)
[2017-05-03] MEDS: OLANZAPINE 5 MG TABLET PO SCH (23:01)
[2017-05-04] MEDS ORDERED: HALOPERIDOL LACTATE INJ 5 MG/1 ML VIAL IM ONE (00:45)
[2017-05-04 04:41] LABS: ABSOLUTE BASOPHILS # (AUTO) 0.1 10^3/uL (0.0-0.2); ABSOLUTE LYMPHOCYTES (AUTO) 1.5 10^3/uL (0.5-4.7); ABSOLUTE MONOCYTES (AUTO) 0.6 10^3/uL (0.1-1.4); BASOPHILS % (AUTO) 0.5 % (0-2); HEMATOCRIT 41.9 % (36.0-47.0); HGB HCT DIFFERENCE 0.1; LYMPHOCYTES % (AUTO) 10.6 % (13-45); MEAN CORPUSCULAR HEMOGLOBIN 28.9 pg (27.0-33.4); MEAN CORPUSCULAR HGB CONC 33.5 g/dL (32.0-36.0); MEAN CORPUSCULAR VOLUME 87 fl (80-97); MONOCYTES % (AUTO) 4.2 % (3-13); RED BLOOD COUNT 4.84 10^6/uL (3.72-5.28); RED CELL DISTRIBUTION WIDTH 12.8 % (11.5-14.0); SEGMENTED NEUTROPHILS % (AUTO) 84.7 % (42-78); WHITE BLOOD COUNT 14.1 10^3/uL (4.0-10.5)
[2017-05-04 04:56] LABS: BLOOD UREA NITROGEN 9 mg/dL (7-20); CALCIUM 9.7 mg/dL (8.4-10.2); CREATININE RESULT 0.85 mg/dL (0.52-1.25); GLUCOSE 210 mg/dL (75-110)
[2017-05-04 05:08] LABS: ANION GAP 21 (5-19)
[2017-05-04 05:09] LABS: CARBON DIOXIDE 17 mmol/L (22-30); CHLORIDE 99 mmol/L (98-107); POTASSIUM 4.2 mmol/L (3.6-5.0); SODIUM 136.8 mmol/L (137-145)
[2017-05-04] MEDS: OLANZAPINE 5 MG TABLET PO SCH ×3 (06:41→23:14)
[2017-05-04] MEDS: HEPARIN SOD (PORCINE) 5,000 UNIT/ML 1 ML SYRINGE SUBCUT SCH ×3 (06:41→23:14)
[2017-05-04] MEDS: INSULIN LISPRO 100 UNIT/ML 3 ML VIAL SUBCUT SCH ×3 (08:59→17:37)
[2017-05-04] MEDS: INSULIN LISPRO 100 UNIT/ML 3 ML VIAL SUBCUT PRN ×2 (08:59→23:15)
[2017-05-04] MEDS: AMLODIPINE BESYLATE 10 MG TABLET PO SCH (11:18)
[2017-05-04] MEDS: INSULIN GLARGINE,HUM.REC.ANLOG 300 UNIT/3 ML INSULN.PEN SUBCUT SCH ×2 (11:18→23:15)
[2017-05-04] MEDS ORDERED: LANSOPRAZOLE 30 MG TAB.RAP.DR PO ONE (11:30)
[2017-05-04] MEDS ORDERED: FLUOXETINE HCL 20 MG CAPSULE PO ONE (11:30)
--- NOTE | 2017-05-04 11:31 | RADIOLOGY REPORT (SQ) ---
EXAM DESCRIPTION: U/S RETROPERITON LTD COMPLETED DATE/TIME: 05/04/2017 11:11 am REASON FOR STUDY: urinary retention COMPARISON: 06/19/2016. TECHNIQUE: Dynamic and static grayscale images acquired of the kidneys and bladder and recorded on P ACS. Additional selected color Doppler and spectral images recorded. LIMITATIONS: None. FINDINGS: RIGHT KIDNEY: Normal size. Normal echogenicity. No solid or suspicious masses. No h ydronephrosis. No calcifications. LEFT KIDNEY: Normal size. Normal echogenicity. No solid or suspicious masses. No hydronephrosi s. No calcifications. BLADDER: No masses. OTHER FINDINGS: No other significant finding. IMPRESSION: NORMAL RENAL AND BLADDER ULTRASOUND. TECHNICAL DOCUMENTATION: JOB ID: [id number] [employer]- All Rights Reserved
--- NOTE | 2017-05-04 16:16 | PDOC PROGRESS REPORT ---
Subjective Progress Note for:: 05/04/17 Subjective:: Pain in her stomach is better. Complains of pain in hte middle of her chest . Feels like reflux. Patient also concerned because he is retaining urine ROS All organ systems have been reviewed and are negative except as seen subjective All significant laboratories and diagnostics have been reviewed Reason For Visit: EPIGASTRIC PAIN,GASTROPARESIS Physical Exam Vital Signs: Temp Pulse Resp BP Pulse Ox 99.3 F 140 H 16 148/93 H 98 05/04/17 15:06 05/04/17 15:06 05/04/17 15:06 05/04/17 15:06 05/04/17 15:06 Intake & Output 05/03/17 05/04/17 05/05/17 06:59 06:59 06:59 Intake Total 2000 120 Output Total 3925 900 Balance -0414 -780 Weight 64.6 kg 66.6 kg General appearance: PRESENT: no acute distress, cooperative, obese Head exam: PRESENT: atraumatic, normocephalic Eye exam: PRESENT: EOMI Mouth exam: PRESENT: moist Neck exam: PRESENT: full ROM. ABSENT: JVD, tenderness Respiratory exam: PRESENT: clear to auscultation bernardo Cardiovascular exam: PRESENT: RRR. ABSENT: diastolic murmur, systolic murmur Vascular exam: PRESENT: normal capillary refill GI/Abdominal exam: PRESENT: normal bowel sounds, soft, tenderness - in suprapubic area Extremities exam: PRESENT: full ROM. ABSENT: joint swelling, pedal edema Musculoskeletal exam: PRESENT: full ROM Neurological exam: PRESENT: alert, oriented to person, oriented to place, oriented to time Psychiatric exam: PRESENT: anxious Skin exam: PRESENT: normal color Results Laboratory Results: 05/04/17 04:31 05/04/17 04:31 05/04/17 05/04/17 04:31 04:31 WBC 14.1 H RBC 4.84 Hgb 14.0 Hct 41.9 MCV 87 MCH 28.9 MCHC 33.5 RDW 12.8 Plt Count 242 Seg Neutrophils % 84.7 H Lymphocytes % 10.6 L Monocytes % 4.2 Eosinophils % 0.0 Basophils % 0.5 Absolute Neutrophils 12.0 H Absolute Lymphocytes 1.5 Absolute Monocytes 0.6 Absolute Eosinophils 0.0 Absolute Basophils 0.1 Sodium 136.8 L Potassium 4.2 Chloride 99 Carbon Dioxide 17 L Anion Gap 21 H BUN 9 Creatinine 0.85 Est GFR ( Amer) > 60 Est GFR (Non-Af Amer) > 60 Glucose 210 H Calcium 9.7 Impressions: Abdomen/Pelvis CT 05/02/17 00:00 IMPRESSION: NO SIGNIFICANT OR ACUTE FINDINGS IN THE ABDOMEN OR PELVIS. Acute Abdomen Series 05/02/17 06:55 IMPRESSION: NO RADIOGRAPHIC EVIDENCE FOR ACUTE ABDOMINAL DISEASE. Renal Ultrasound 05/04/17 00:00 IMPRESSION: NORMAL RENAL AND BLADDER ULTRASOUND. Assessment & Plan - Diagnosis (1) Gastroparesis due to DM Is this a current diagnosis for this admission?: Yes Plan: Likely culprit of her presentation in the setting of uncontrolled diabetes mellitus. Symptoms wax and wane. She responded to Haldol. Will continue Zyprexa scheduled . Advance diet. Continue adjusting diabetes management (2) Epigastric abdominal pain Is this a current diagnosis for this admission?: Yes Plan: Likely epigastric pain relates to diabetic gastroparesis. Advance diet to diabetic. (3) Leukocytosis Qualifiers: Leukocytosis type: unspecified Qualified Code(s): D72.829 - Elevated white blood cell count, unspecified Is this a current diagnosis for this admission?: Yes Plan: Due to your demargination of white blood cell count in the setting of stress. Patient has had this problem in the past and work up had been negative. Trending down (4) Bipolar 1 disorder, depressed, moderate Is this a current diagnosis for this admission?: Yes Plan: Discontinue Elavil due to urinary retention. Will continue Zyprexa and will add Prozac since this regimen at work for bipolar depression (5) Uncontrolled diabetes mellitus Qualifiers: Diabetes mellitus type: type 2 Diabetes mellitus complication detail: with autonomic neuropathy Diabetes mellitus assisted insulin use: with assisted use Is this a current diagnosis for this admission?: Yes Plan: Continue present management but will watch for hypoglycemia. (6) Metabolic acidosis Is this a current diagnosis for this admission?: Yes Plan: It appears to be due to volume contraction and vomiting (7) Urinary retention Is this a current diagnosis for this admission?: Yes Plan: Discontinue Elavil and will order a bladder sonogram (8) Chest pain Qualifiers: Chest pain type: other chest pain Qualified Code(s): R07.89 - Other chest pain; R07.8 - Other chest pain Is this a current diagnosis for this admission?: Yes Plan: Will place patient on PPI and follow up response.
[2017-05-04] MEDS: OXYCODONE-ACETAMINOPHEN 5-325 MG TABLET PO PRN (17:37)
--- NOTE | 2017-05-04 19:11 | PDOC PROGRESS REPORT ---
Subjective Progress Note for:: 05/04/17 Subjective:: epigastric pains and inability to void. + flatus Reason For Visit: EPIGASTRIC PAIN,GASTROPARESIS Physical Exam Vital Signs: Temp Pulse Resp BP Pulse Ox 99.3 F 140 H 16 148/93 H 98 05/04/17 15:06 05/04/17 15:06 05/04/17 15:06 05/04/17 15:06 05/04/17 15:06 Intake & Output 05/03/17 05/04/17 05/05/17 06:59 06:59 06:59 Intake Total 2000 120 Output Total 3925 900 Balance -0754 -780 Weight 64.6 kg 66.6 kg Exam: Abdomen is soft with mild epigastric tenderness Results Laboratory Results: 05/04/17 04:31 05/04/17 04:31 05/04/17 05/04/17 04:31 04:31 WBC 14.1 H RBC 4.84 Hgb 14.0 Hct 41.9 MCV 87 MCH 28.9 MCHC 33.5 RDW 12.8 Plt Count 242 Seg Neutrophils % 84.7 H Lymphocytes % 10.6 L Monocytes % 4.2 Eosinophils % 0.0 Basophils % 0.5 Absolute Neutrophils 12.0 H Absolute Lymphocytes 1.5 Absolute Monocytes 0.6 Absolute Eosinophils 0.0 Absolute Basophils 0.1 Sodium 136.8 L Potassium 4.2 Chloride 99 Carbon Dioxide 17 L Anion Gap 21 H BUN 9 Creatinine 0.85 Est GFR ( Amer) > 60 Est GFR (Non-Af Amer) > 60 Glucose 210 H Calcium 9.7 Impressions: Abdomen/Pelvis CT 05/02/17 00:00 IMPRESSION: NO SIGNIFICANT OR ACUTE FINDINGS IN THE ABDOMEN OR PELVIS. Acute Abdomen Series 05/02/17 06:55 IMPRESSION: NO RADIOGRAPHIC EVIDENCE FOR ACUTE ABDOMINAL DISEASE. Renal Ultrasound 05/04/17 00:00 IMPRESSION: NORMAL RENAL AND BLADDER ULTRASOUND. Assessment & Plan - Time Time Spent with patient: 15-24 minutes - Plan Summary Plan Summary: No surgical abdomen. Agree with plans outlined by Hospitalist. Will sign off.
[2017-05-05] MEDS: OXYCODONE-ACETAMINOPHEN 5-325 MG TABLET PO PRN ×2 (04:10→12:33)
[2017-05-05] MEDS: HEPARIN SOD (PORCINE) 5,000 UNIT/ML 1 ML SYRINGE SUBCUT SCH ×2 (06:17→14:20)
[2017-05-05] MEDS: OLANZAPINE 5 MG TABLET PO SCH (06:17)
[2017-05-05 06:57] LABS: ABSOLUTE BASOPHILS # (AUTO) 0.1 10^3/uL (0.0-0.2); ABSOLUTE LYMPHOCYTES (AUTO) 2.1 10^3/uL (0.5-4.7); ABSOLUTE MONOCYTES (AUTO) 0.7 10^3/uL (0.1-1.4); ABSOLUTE NEUT (AUTO) 7.1 10^3/uL (1.7-8.2); BASOPHILS % (AUTO) 0.5 % (0-2); EOSINOPHILS % (AUTO) 0.1 % (0-6); HEMATOCRIT 42.1 % (36.0-47.0); HEMOGLOBIN 14.4 g/dL (12.0-15.5); HGB HCT DIFFERENCE 1.1; LYMPHOCYTES % (AUTO) 21.1 % (13-45); MEAN CORPUSCULAR HEMOGLOBIN 29.3 pg (27.0-33.4); MEAN CORPUSCULAR HGB CONC 34.2 g/dL (32.0-36.0); MEAN CORPUSCULAR VOLUME 86 fl (80-97); MONOCYTES % (AUTO) 7.4 % (3-13); RED BLOOD COUNT 4.92 10^6/uL (3.72-5.28); RED CELL DISTRIBUTION WIDTH 12.6 % (11.5-14.0); SEGMENTED NEUTROPHILS % (AUTO) 70.9 % (42-78); WHITE BLOOD COUNT 10.1 10^3/uL (4.0-10.5)
[2017-05-05 07:22] LABS: ANION GAP 17 (5-19); BLOOD UREA NITROGEN 15 mg/dL (7-20); CALCIUM 9.9 mg/dL (8.4-10.2); CARBON DIOXIDE 17 mmol/L (22-30); CHLORIDE 103 mmol/L (98-107); CREATININE RESULT 1.02 mg/dL (0.52-1.25); GLUCOSE 174 mg/dL (75-110); MAGNESIUM 1.8 mg/dL (1.6-2.3); POTASSIUM 4.1 mmol/L (3.6-5.0); SODIUM 136.9 mmol/L (137-145)
[2017-05-05] MEDS ORDERED: LANSOPRAZOLE 30 MG TAB.RAP.DR PO SCH (08:00)
[2017-05-05] MEDS: INSULIN LISPRO 100 UNIT/ML 3 ML VIAL SUBCUT SCH ×2 (08:03→12:32)
[2017-05-05] MEDS: INSULIN LISPRO 100 UNIT/ML 3 ML VIAL SUBCUT PRN ×2 (08:03→12:33)
[2017-05-05] MEDS ORDERED: FLUOXETINE HCL 20 MG CAPSULE PO SCH (10:00)
[2017-05-05] MEDS: INSULIN GLARGINE,HUM.REC.ANLOG 300 UNIT/3 ML INSULN.PEN SUBCUT SCH (11:18)
[2017-05-05] MEDS: AMLODIPINE BESYLATE 10 MG TABLET PO SCH (11:19)
[2017-05-05 13:19] VITALS: BP 149/95
--- NOTE | 2017-05-05 18:00 | PDOC DISCHARGE SUMMARY ---
General - Admit/Disc Date/PCP Admission Date/Primary Care Provider: 05/02/17 17:28 Discharge Date: 05/05/17 - Discharge Diagnosis (1) Gastroparesis due to DM Is this a current diagnosis for this admission?: Yes (2) Epigastric abdominal pain Is this a current diagnosis for this admission?: Yes (3) Leukocytosis Is this a current diagnosis for this admission?: Yes (4) Bipolar 1 disorder, depressed, moderate Is this a current diagnosis for this admission?: Yes (5) Uncontrolled diabetes mellitus Is this a current diagnosis for this admission?: Yes (6) Metabolic acidosis Is this a current diagnosis for this admission?: Yes (7) Urinary retention Is this a current diagnosis for this admission?: Yes (8) Chest pain Is this a current diagnosis for this admission?: Yes - Additional Information Resuscitation Status: Full Code Home Medications: Amlodipine Besylate [Norvasc 10 mg Tablet] 10 mg PO QAM 05/02/17 Clonidine [Catapres-Tts 2 (0.2 mg/24 Hr) Transderm Ptch] 1 patch TD WE@1000 12/10 Dexlansoprazole [Dexilant 60 mg Capsule] 60 mg PO DAILY 05/02/17 Insulin Lispro [Humalog Insulin (Lispro) 100 unit/mL] 0 unit SUBCUT .SLD SCALE 05/02/17 Lisinopril [Prinivil 10 mg Tablet] 10 mg PO DAILY 05/02/17 Fluoxetine HCl [Prozac 20 mg Capsule] 20 mg PO DAILY #30 capsule 05/05/17 Insulin Glargine,Hum.rec.anlog [Lantus Insulin 100 Unit/mL] 20 unit SUBCUT Q12 # 2 insuln.pen 05/05/17 Olanzapine [Zyprexa 5 mg Tablet] 5 mg PO QHS #30 tablet 05/05/17 History of Present Illness History of Present Illness: Kasey Biswas: This is a 42 years old black female who presented to emergency room complaining of abdominal pain accompanied by nausea and vomiting since for one day. Patient related that she has been having the problem for several years and had been extensively evaluated. She had undergone multiple CTs of the abdomen and pelvis. She has a history of diabetes which is complicated by gastroparesis. She is currently on Lantus and uses NovoLog sliding scale. During the course of evaluation in emergency room white blood cell count was noted to be elevated with no obvious source of infectious process. After reviewing old charts, we prompted to admit patient under inpatient status primarily for the purpose of hydration and controlling of blood sugar. Hospital Course Hospital Course: Patient was gently hydrated and we noted resolution of metabolic acidosis and a trending downward of white blood cell count. At the time of discharge white blood cell count had completely normalized. Since patient had responded in the past to Haldol patient was placed on Zyprexa as it does have antiemetic properties. In addition this medication can help out with bipolar depression. We also added Prozac to her outpatient regimen. Patient experienced urinary retention which was noted during this admission. We discontinued amitriptyline. There is a possibility that we might be dealing with a neurogenic bladder. Patient was discharged with a Barnard cath. We consulted case management for patient to be discharged under home health as she will need follow-up for barnard care. Patient has been advised to follow-up with her primary care provider since she will need to be evaluated by urology service which we do not have available today. Patient's diet was advanced and tolerated. We adjusted Lantus and she is to take 20 units subcu twice a day. She will continue with same coverage for NovoLog as outpatient. Patient developed a small bout of midsternal chest pain which responded to PPI . Since patient had achieved maximum benefit of hospitalization stay prompted to discharge under stable condition. Physical Exam Vital Signs: Temp Pulse Resp BP Pulse Ox 98.6 F 121 H 17 155/77 H 100 05/04/17 23:08 05/05/17 00:00 05/04/17 23:08 05/04/17 23:08 05/04/17 23:08 Intake & Output 05/04/17 05/05/17 05/06/17 06:59 06:59 06:59 Intake Total 2000 315 Output Total 392 1200 Balance -4 -885 Weight 66.6 kg 65 kg General appearance: PRESENT: no acute distress, cooperative, obese Head exam: PRESENT: atraumatic, normocephalic Eye exam: PRESENT: EOMI, PERRLA Mouth exam: PRESENT: moist, neck supple Neck exam: PRESENT: full ROM. ABSENT: JVD, tenderness Respiratory exam: PRESENT: clear to auscultation bernardo Cardiovascular exam: PRESENT: RRR. ABSENT: diastolic murmur, systolic murmur Vascular exam: PRESENT: normal capillary refill GI/Abdominal exam: PRESENT: guarding, normal bowel sounds, soft. ABSENT: ascites, tenderness Extremities exam: PRESENT: full ROM. ABSENT: joint swelling, pedal edema Musculoskeletal exam: PRESENT: ambulatory Neurological exam: PRESENT: alert, awake, oriented to person, oriented to place , oriented to time Psychiatric exam: PRESENT: appropriate affect, normal mood Skin exam: PRESENT: normal color Results Laboratory Results: 05/05/17 06:35 05/05/17 06:35 WBC 10.1 RBC 4.92 Hgb 14.4 Hct 42.1 MCV 86 MCH 29.3 MCHC 34.2 RDW 12.6 Plt Count 289 Seg Neutrophils % 70.9 Lymphocytes % 21.1 Monocytes % 7.4 Eosinophils % 0.1 Basophils % 0.5 Absolute Neutrophils 7.1 Absolute Lymphocytes 2.1 Absolute Monocytes 0.7 Absolute Eosinophils 0.0 Absolute Basophils 0.1 Impressions: Abdomen/Pelvis CT 05/02/17 00:00 IMPRESSION: NO SIGNIFICANT OR ACUTE FINDINGS IN THE ABDOMEN OR PELVIS. Acute Abdomen Series 05/02/17 06:55 IMPRESSION: NO RADIOGRAPHIC EVIDENCE FOR ACUTE ABDOMINAL DISEASE. Renal Ultrasound 05/04/17 00:00 IMPRESSION: NORMAL RENAL AND BLADDER ULTRASOUND. Plan Discharge Plan: Discharge home with home health Time Spent: Greater than 30 Minutes
[2017-05-05] MEDS ORDERED: OLANZAPINE 5 MG TABLET PO SCH (22:00)
[2017-05-08] MEDS ORDERED: CLONIDINE 0.2 MG/24 HR PATCH.TDWK TD SCH (10:00)
== END 2017-05-05 14:46 | disposition home health service (06) | DRG 74 ==
LOC: ER 05:41 → INTOOBSV 17:28 → OBSVTOIN 17:28 → EH 17:28 → 4N 20:30
PROVIDERS: ADMIT Family Medicine; ATTEND Family Medicine
DX: E11.43 Type 2 diabetes mellitus with diabetic autonomic (poly)neuropathy (principal); K31.84 Gastroparesis; E87.2 Acidosis; R07.9 Chest pain, unspecified; R33.9 Retention of urine, unspecified; E78.5 Hyperlipidemia, unspecified; I10 Essential (primary) hypertension; K21.9 Gastro-esophageal reflux disease without esophagitis; F31.9 Bipolar disorder, unspecified; M19.049 Primary osteoarthritis, unspecified hand; Z79.4 Long term (current) use of insulin; Z79.899 Other long term (current) drug therapy; Z86.14 Personal history of Methicillin resistant Staphylococcus aureus infection; Z90.49 Acquired absence of other specified parts of digestive tract; Z88.8 Allergy status to other drugs, medicaments and biological substances
CPT/HCPCS: 36415; 74022; 74177; 76775; 80048; 80053; 80307; 81001; 81025; 82150; 82962; 83605; 83690; 83735; 85025; 87040; 90686; 93005; 93010; 96361; 96374; 96375; 96376; 99285; G0378; J1630; J1644; J1815; J2270; J2405; J3490; J7030; J7120

== ENCOUNTER 2017-05-06 09:12 | Emergency (ER) | payer MEDICAID ==
[2017-05-06 09:24] VITALS: BP 168/104
== END 2017-05-06 09:40 | disposition left against medical advice (07) ==
LOC: ER 09:12
DX: Z53.21 Procedure and treatment not carried out due to patient leaving prior to being seen by health care provider (principal)

== ENCOUNTER 2017-06-29 16:04 | Emergency (ER) | payer MEDICAID ==
[2017-06-29] MEDS ORDERED: MORPHINE SULFATE 10 MG/ML INJ IV ONE (17:28)
[2017-06-29] MEDS ORDERED: NORMAL SALINE 1000 ML 1,000 ML IV ONE ×2 (17:31→18:53)
[2017-06-29] MEDS ORDERED: ONDANSETRON HCL INJ/PF 4 MG/2 ML SDV IV ONE (17:32)
--- NOTE | 2017-06-29 17:48 | ER Document Report ---
ED GI/ - General Information source: Patient TRAVEL OUTSIDE OF THE [place] IN LAST 30 DAYS: No - HPI Patient complains to provider of: Abdominal pain Onset: Other - See above Timing/Duration: Gradual Quality of pain: Achy, Burning Severity at maximum: Moderate Severity in ED: Moderate Pain Level: 3 Location: Other - See above Vaginal bleeding (Compared to normal period): None Associated symptoms: Other - See above Exacerbated by: Denies Relieved by: Denies Similar symptoms previously: Yes Recently seen / treated by doctor: Yes <MAGGIE WHITE - Last Filed: 06/29/17 19:17> <MAGGIE ARCEO - Last Filed: 06/29/17 20:20> - General Chief Complaint: Nausea/Vomiting Stated Complaint: VOMITING Time Seen by Provider: 06/29/17 17:03 Notes: 42-year-old female with a long-standing history of multiple visits for abdominal pain/gastroparesis/elevated blood sugars who presents today stating that she has had elevated blood sugars for about 2 weeks with about 3-4 days of some abdominal pain and vomiting. She states she vomited around 10-12 times today. No diarrhea. She denies any fevers. She denies any aggravating or relieving factors to the epigastric nonradiating discomfort. Patient states that she has been taking all her medications appropriately. (MAGGIE WHITE) - Related Data Allergies/Adverse Reactions: metoclopramide HCl [From Reglan] Allergy (Unknown, Verified 06/29/17 16:04) Past Medical History - General Information source: Patient - Social History Smoking Status: Never Smoker Cigarette use (# per day): No Chew tobacco use (# tins/day): No Smoking Education Provided: No Frequency of alcohol use: None Drug Abuse: None Family History: DM Patient has suicidal ideation: No Patient has homicidal ideation: No - Past Medical History Cardiac Medical History: Reports: Hx Hypercholesterolemia, Hx Hypertension Endocrine Medical History: Reports: Hx Diabetes Mellitus Type 1, Hx Diabetes Mellitus Type 2 Renal/ Medical History: Reports: Hx Renal Insufficiency. Denies: Hx Peritoneal Dialysis GI Medical History: Reports: Hx Gastroesophageal Reflux Disease Musculoskeltal Medical History: Reports Hx Arthritis - Hand Skin Medical History: Reports Hx Eczema Psychiatric Medical History: Reports: Hx Anxiety, Hx Bipolar Disorder, Hx Depression Infectious Medical History: Reports: Hx MRSA Past Surgical History: Reports: Hx Cholecystectomy - Immunizations Immunizations up to date: Yes Hx Diphtheria, Pertussis, Tetanus Vaccination: Yes - unknown Hx Pneumococcal Vaccination: 05/04/10 <JADA WHITEIAN - Last Filed: 06/29/17 19:17> Review of Systems - Review of Systems Constitutional: denies: Fever EENT: denies: Eye discharge, Nose discharge Cardiovascular: denies: Chest pain, Palpitations Respiratory: denies: Short of breath Gastrointestinal: denies: Abdomen distended, Diarrhea Genitourinary: denies: Dysuria Musculoskeletal: denies: Leg swelling Skin: Other - no hives. denies: Rash Neurological/Psychological: Other - no slurred speech -: Yes All other systems reviewed and negative <MAGGIE WHITE - Last Filed: 06/29/17 19:17> Physical Exam <JADA WHITEIAN - Last Filed: 06/29/17 19:17> <JADA ARCEOIAN - Last Filed: 06/29/17 20:20> - Vital signs Vitals: Temp Pulse Resp BP Pulse Ox 98 F 118 H 24 H 158/98 H 100 06/29/17 16:11 06/29/17 16:11 06/29/17 16:11 06/29/17 16:11 06/29/17 16:11 Notes: Reviewed vital signs and nursing note as charted by RN. CONSTITUTIONAL: Alert and oriented and responds appropriately to questions. Patient appears to be in discomfort HEAD: Normocephalic; atraumatic EYES: PERRL ENT: Moist mucous membranes; pharynx without lesions noted NECK: Supple without meningismus; non-tender CARD: Tachycardic and regular; no murmurs RESP: Normal chest excursion without splinting or tachypnea; breath sounds clear and equal bilaterally ABD/GI: Normal bowel sounds; non-distended; soft, with distraction the patient has only mild tenderness to palpation of the epigastric region. No rebound or guarding. No palpable masses or bruits present BACK: The back appears normal and is non-tender to palpation, there is no CVA tenderness EXT: Normal ROM in all joints; non-tender to palpation; no edema SKIN: No acute lesions noted NEURO: Moves all extremities equally; Motor and sensory function intact PSYCH: The patient's mood and manner are appropriate. Grooming and personal hygiene are appropriate. (MAGGIE WHITE) Course - Laboratory Result Diagrams: 06/29/17 18:00 06/29/17 18:00 <MAGGIE WHITE - Last Filed: 06/29/17 19:17> - Laboratory Result Diagrams: 06/29/17 18:00 06/29/17 18:00 <MAGGIE ARCEO - Last Filed: 06/29/17 20:20> - Re-evaluation Re-evalutation: Given the history and physical examination we will obtain an EKG, chemistry, three-way x-ray of the abdomen, after an initial Accu-Chek showed an elevated blood sugar. I have concern for possible gastroparesis or diabetic ketoacidosis. Given the extensive evaluation of this abdominal pain that has been recurrent, I will order a liver panel and lipase, but I will hold on the CT scan at this moment. 06/29/17 17:48 EKG shows a heart rate of 117, sinus tachycardia, narrow QRS, poor R-wave progression, no peak T waves, no ST elevation or depression 06/29/17 19:17 Three-way x-ray of the abdomen is unremarkable. Second liter of fluid started. I have started a small dose of haldol. (MAGGIE WHITE) - Vital Signs Vital signs: Temp Pulse Resp BP Pulse Ox 98.3 F 111 H 18 177/85 H 99 06/29/17 18:16 06/29/17 18:55 06/29/17 18:55 06/29/17 18:55 06/29/17 18:55 - Laboratory Laboratory results interpreted by me: 06/29/17 06/29/17 06/29/17 17:33 18:00 18:00 WBC 19.1 H Seg Neuts % (Manual) 89 H Lymphocytes % (Manual) 6 L Abs Neuts (Manual) 17.0 H VBG pCO2 VBG HCO3 Carbon Dioxide 16 L Anion Gap 20 H Est GFR (Non-Af Amer) 53 L Glucose 462 H* POC Glucose 411 H* Calcium 10.9 H Alkaline Phosphatase 134 H Total Protein 8.5 H Urine Glucose (UA) Urine Ketones 06/29/17 06/29/17 06/29/17 18:00 18:29 19:24 WBC Seg Neuts % (Manual) Lymphocytes % (Manual) Abs Neuts (Manual) VBG pCO2 25.5 L VBG HCO3 15.2 L Carbon Dioxide Anion Gap Est GFR (Non-Af Amer) Glucose POC Glucose 366 H Calcium Alkaline Phosphatase Total Protein Urine Glucose (UA) >=500 H Urine Ketones 20 H Discharge <MAGGIE WHITE - Last Filed: 06/29/17 19:17> <MAGGIE ARCEO - Last Filed: 06/29/17 20:20> - Discharge Clinical Impression: Gastroparesis due to DM, Chronic generalized abdominal pain Diabetes mellitus type 1, uncontrolled, insulin dependent Qualifiers: Diabetes mellitus complication status: with unspecified complications Qualified Code(s): E10.8 - Type 1 diabetes mellitus with unspecified complications; E10.65 - Type 1 diabetes mellitus with hyperglycemia; E10.65 - Type 1 diabetes mellitus with hyperglycemia; E10.65 - Type 1 diabetes mellitus with hyperglycemia; E10.65 - Type 1 diabetes mellitus with hyperglycemia Condition: Fair Disposition: HOME, SELF-CARE Additional Instructions: You have been seen in the Emergency Department (ED) for abdominal pain. Your evaluation did not identify a clear cause of your symptoms but was generally reassuring. Please continue to take your insulin as directed and monitor for ongoing high blood sugars. Please follow up with your doctor as soon as possible regarding today's emergent visit and the symptoms that are bothering you. Return to the ED if your abdominal pain worsens or fails to improve, you develop bloody vomiting, bloody diarrhea, you are unable to tolerate fluids due to vomiting, fever greater than 101, or other symptoms that concern you.
[2017-06-29 18:10] LABS: VENOUS BLOOD BASE EXCESS -7.9 mmol/L; VENOUS BLOOD HCO3 15.2 mmol/L (20-32); VENOUS BLOOD PCO2 25.5 mmHg (35-63); VENOUS BLOOD PH 7.39 (7.30-7.42)
[2017-06-29 18:13] LABS: HEMATOCRIT 38.5 % (36.0-47.0); MEAN CORPUSCULAR HEMOGLOBIN 28.9 pg (27.0-33.4); MEAN CORPUSCULAR HGB CONC 33.6 g/dL (32.0-36.0); MEAN CORPUSCULAR VOLUME 86 fl (80-97); PLATELET COUNT 404 10^3/uL (150-450); RED CELL DISTRIBUTION WIDTH 13.3 % (11.5-14.0); WHITE BLOOD COUNT 19.1 10^3/uL (4.0-10.5)
[2017-06-29] MEDS ORDERED: HALOPERIDOL LACTATE INJ 5 MG/1 ML VIAL IV ONE ×3 (18:25→22:25)
[2017-06-29 18:29] LABS: ALANINE AMINOTRANSFERASE 23 U/L (9-52); ALBUMIN 4.9 g/dL (3.5-5.0); ALKALINE PHOSPHATASE 134 U/L (38-126); ASPARTATE AMINO TRANSFERASE 22 U/L (14-36); BILIRUBIN,DIRECT 0.4 mg/dL (0.0-0.4); BILIRUBIN,TOTAL 0.6 mg/dL (0.2-1.3); BLOOD UREA NITROGEN 13 mg/dL (7-20); CALCIUM 10.9 mg/dL (8.4-10.2); TOTAL PROTEIN 8.5 g/dL (6.3-8.2)
[2017-06-29 18:33] LABS: ABSOLUTE LYMPHOCYTES# (MANUAL) 1.1 10^3/uL (0.5-4.7); BASOPHILS % (MANUAL) 0 % (0-2); EOSINOPHILS % (MANUAL) 0 % (0-6); LYMPHOCYTES % (MANUAL) 6 % (13-45); MONOCYTES % (MANUAL) 5 % (3-13); SEGMENTED NEUTROPHILS % (MAN) 89 % (42-78); TOTAL CELLS COUNTED 100
[2017-06-29 18:34] LABS: PLATELET COMMENT ADEQUATE; RBC MORPHOLOGY COMMENT NORMO-CYTIC/CHROMIC
[2017-06-29 18:37] LABS: CARBON DIOXIDE 16 mmol/L (22-30); CHLORIDE 102 mmol/L (98-107); SODIUM 137.9 mmol/L (137-145)
[2017-06-29 18:41] LABS: APPEARANCE,URINE SLIGHTLY-CLOUDY; BILIRUBIN,URINE NEGATIVE (NEGATIVE); COLOR,URINE STRAW; GLUCOSE, URINE >=500 mg/dL (NEGATIVE); KETONES,URINE 20 mg/dL (NEGATIVE); LEUKOCYTE ESTERASE,URINE NEGATIVE (NEGATIVE); NITRITE,URINE NEGATIVE (NEGATIVE); PROTEIN,URINE NEGATIVE (NEGATIVE); URINE SPECIFIC GRAVITY 1.022; UROBILINOGEN,URINE NEGATIVE mg/dL (<2.0)
[2017-06-29 18:44] LABS: ANION GAP 20 (5-19)
[2017-06-29 18:46] LABS: GLUCOSE 462 mg/dL (75-110)
--- NOTE | 2017-06-29 18:59 | RADIOLOGY REPORT (SQ) ---
EXAM DESCRIPTION: ACUTE ABDOMEN SERIES COMPLETED DATE/TIME: 06/29/2017 6:46 pm REASON FOR STUDY: 18, vomiting - history of gastroparesis COMPARISON: None. NUMBER OF VIEWS: Three views. TECHNIQUE: Frontal chest, supine abdomen and upright/decubitus abdomen radiographic images acquired. LIMITATIONS: None. FINDINGS: CHEST: Lungs clear of infiltrates. FREE AIR: None. No abnormal gas collections. BOWEL GAS PATTERN: Nonobstructive pattern. No dilated loops or air fluid levels. CALCIFICATIONS: No suspicious calcifications. HARDWARE: Cholecystectomy clips are present. SOFT TISSUES: No gross mass or suggestion of organomegaly. BONES: No acute fracture. No worrisome bone lesions. OTHER: No other significant finding. IMPRESSION: NO RADIOGRAPHIC EVIDENCE FOR ACUTE ABDOMINAL DISEASE. TECHNICAL DOCUMENTATION: JOB ID: [id number] [employer]- All Rights Reserved
--- NOTE | 2017-06-29 20:18 | ER Document Report ---
Doctor's Note Notes: 06/29/17 20:16 Patient CARE was transferred to me by Dr. Gutierrez. In summary this is a patient very well-known to me in the emergency department she has had 18 CT scans of her abdomen and pelvis since 2013 for chronic generalized abdominal pain. Her presentation today is identical to the prior times that I have seen her. Her laboratories are not consistent with acute diabetic ketoacidosis that she has a normal blood pH at 7.39. Mild hyperglycemia noted. Patient has received 2 L IV fluid, haloperidol and had some improvement of her abdominal pain. No further vomiting. Patient had a CT scan less than 2 months ago for the same presentation which was again noted to be normal. I remain extremely concerned about the number of CT images that the patient has had performed on her abdomen and pelvis and increasing probability of iatrogenic injury from these extremely frequent images. I do not believe a CT image today would be appropriate and have discussed the patient that this needs to stop. I have instructed her to continue to take all medications as directed, and follow-up with her general doctor. At this time I do not suspect any acute surgical pathology based on her now reassuring vitals, physical examination and history. Although her labs are notable for leukocytosis review of an extensive number of laboratories going back several years shows that the patient chronically has a leukocytosis which has been repeatedly evaluated in the past without clear etiology with exception of concern for possible stress mediated mechanism.
[2017-06-29] MEDS ORDERED: INSULIN REG, HUMAN 100 UNIT/ML 3 ML VIAL (PYX) IV ONE (20:20)
[2017-06-29] MEDS ORDERED: RINGERS SOLUTION,LACTATED 1,000 ML IV ONE (22:25)
[2017-06-29 23:35] LABS: ANION GAP 17 (5-19); BLOOD UREA NITROGEN 11 mg/dL (7-20); CALCIUM 10.1 mg/dL (8.4-10.2); CARBON DIOXIDE 16 mmol/L (22-30); CHLORIDE 106 mmol/L (98-107); GLUCOSE 294 mg/dL (75-110); POTASSIUM 5.1 mmol/L (3.6-5.0); SODIUM 139.1 mmol/L (137-145)
[2017-06-30 00:28] VITALS: BP 152/74
--- NOTE | 2017-06-30 08:33 | EKG REPORT ---
SEVERITY:- BORDERLINE ECG - SINUS TACHYCARDIA POOR R WAVE PROGRESSION ANTERIOR LEADS : Confirmed by: Eduardo Novak MD 30-Jun-2017 08:32:37
== END 2017-06-30 00:50 | disposition home or self-care (01) ==
LOC: ER 16:04
DX: E10.43 Type 1 diabetes mellitus with diabetic autonomic (poly)neuropathy (principal); K31.84 Gastroparesis; G89.29 Other chronic pain; R10.84 Generalized abdominal pain; E10.65 Type 1 diabetes mellitus with hyperglycemia; R11.2 Nausea with vomiting, unspecified; E78.00 Pure hypercholesterolemia, unspecified; I10 Essential (primary) hypertension; Z86.14 Personal history of Methicillin resistant Staphylococcus aureus infection; Z90.49 Acquired absence of other specified parts of digestive tract
CPT/HCPCS: 93005; 96376; 99284; 96361; 96374; 96375; 36415; 82962; 85025; 81025; 80048; 80053; 81001; 82803; 74022; 93010; J1630; J2270; J1815; J2405; J7030; J7120

== ENCOUNTER 2017-07-16 12:22 | Emergency (ER) | payer MEDICAID ==
[2017-07-16] MEDS ORDERED: NORMAL SALINE 1000 ML 1,000 ML IV ONE (12:38)
[2017-07-16] MEDS ORDERED: ONDANSETRON HCL INJ/PF 4 MG/2 ML SDV IV ONE (12:38)
[2017-07-16] MEDS ORDERED: FENTANYL CITRATE INJ/PF 100 MCG/2 ML AMPUL IV ONE (12:47)
--- NOTE | 2017-07-16 12:48 | ER Document Report ---
ED Medical Screen (RME) - General TRAVEL OUTSIDE OF THE [place] IN LAST 30 DAYS: No - General Chief Complaint: Upper Abdominal Pain Stated Complaint: VOMITING Time Seen by Provider: 07/16/17 12:39 Notes: Patient presents with onset of epigastric pain that is grabbing in nature that started this morning. She states she has been having these issues for over 3 years but today is worse. (GLEN GRANADOS) - Related Data Allergies/Adverse Reactions: metoclopramide HCl [From Reglan] Allergy (Unknown, Verified 07/16/17 12:22) Past Medical History - Social History Chew tobacco use (# tins/day): No Frequency of alcohol use: None Drug Abuse: None Family history: DM, Hypertension - Past Medical History Cardiac Medical History: Reports: Hx Hypercholesterolemia, Hx Hypertension Endocrine Medical History: Reports: Hx Diabetes Mellitus Type 1, Hx Diabetes Mellitus Type 2 Renal/ Medical History: Reports: Hx Renal Insufficiency. Denies: Hx Peritoneal Dialysis GI Medical History: Reports: Hx Gastroesophageal Reflux Disease Musculoskeltal Medical History: Reports Hx Arthritis - Hand Skin Medical History: Reports Hx Eczema Psychiatric Medical History: Reports: Hx Anxiety, Hx Bipolar Disorder, Hx Depression Infectious Medical History: Reports: Hx MRSA Past Surgical History: Reports: Hx Cholecystectomy - Immunizations Immunizations up to date: Yes Hx Diphtheria, Pertussis, Tetanus Vaccination: Yes - unknown History of Influenza Vaccine for 02/2017 - 07/2017 Season: No Review of Systems - Review of Systems Gastrointestinal: Abdominal pain Physical Exam - Abdominal Tenderness: Tender - epigastric region - Vital signs Vitals: Temp Pulse Resp BP Pulse Ox 97.5 F 129 H 20 182/96 H 100 07/16/17 12:33 07/16/17 12:33 07/16/17 12:33 07/16/17 12:33 07/16/17 12:33 - Vital Signs Vital signs: Temp Pulse Resp BP Pulse Ox 97.5 F 129 H 20 182/96 H 100 07/16/17 12:33 07/16/17 12:33 07/16/17 12:33 07/16/17 12:33 07/16/17 12:33 - Laboratory Laboratory results interpreted by me: 07/16/17 13:00 Urine Protein 100 H Urine Glucose (UA) >=500 H Urine Ketones 20 H Doctor's Discharge - Discharge Referrals: GLEN MCGRATH PA-C [Primary Care Provider] - Follow up as needed
[2017-07-16] MEDS ORDERED: MAG HYDROX/AL HYDROX/SIMETH SUSP 30 ML UDCUP PO ONE (12:49)
[2017-07-16] MEDS ORDERED: LIDOCAINE 2% VISCOUS SOLN 20 ML UDCUP PO ONE (12:49)
--- NOTE | 2017-07-16 14:06 | RADIOLOGY REPORT (SQ) ---
EXAM DESCRIPTION: CHEST SINGLE VIEW COMPLETED DATE/TIME: 07/16/2017 1:57 pm REASON FOR STUDY: upright chest xray, eval for free air COMPARISON: Chest films 03/29/2016, 03/15/2017, 05/02/2017 EXAM PARAMETERS: NUMBER OF VIEWS: One view. TECHNIQUE: Single frontal radiographic view of the chest acquired. RADIATION DOSE: NA LIMITATIONS: None. FINDINGS: LUNGS AND PLEURA: No opacities, masses or pneumothorax. No pleural effusion. MEDIASTINUM AND HILAR STRUCTURES: No masses. Contour normal. HEART AND VASCULAR STRUCTURES: Heart normal in size. Normal vasculature. BONES: No acute findings. HARDWARE: Clips right upper quadrant post cholecystectomy OTHER: No other significant finding. IMPRESSION: NO ACUTE RADIOGRAPHIC FINDING IN THE CHEST. TECHNICAL DOCUMENTATION: JOB ID: [id number] [employer]- All Rights Reserved
[2017-07-16 14:11] LABS: APPEARANCE,URINE SLIGHTLY-CLOUDY; BILIRUBIN,URINE NEGATIVE (NEGATIVE); COLOR,URINE YELLOW; GLUCOSE, URINE >=500 mg/dL (NEGATIVE); KETONES,URINE 20 mg/dL (NEGATIVE); LEUKOCYTE ESTERASE,URINE NEGATIVE (NEGATIVE); NITRITE,URINE NEGATIVE (NEGATIVE); PROTEIN,URINE 100 mg/dL (NEGATIVE); URINE SPECIFIC GRAVITY 1.018; UROBILINOGEN,URINE NEGATIVE mg/dL (<2.0)
[2017-07-16] MEDS ORDERED: HALOPERIDOL 5 MG TABLET PO ONE (14:31)
--- NOTE | 2017-07-16 14:37 | ER Document Report ---
ED General - General Chief Complaint: Upper Abdominal Pain Stated Complaint: VOMITING Time Seen by Provider: 07/16/17 12:39 Notes: 42-year-old female diabetic with multiple ED visits and admissions for gastroparesis presents with upper abdominal pain nausea vomiting. She took Zofran but that did not help. She was recently admitted for the same. Has not checked her blood sugar. Symptoms are constant symptoms are moderate. Of note she was sleeping when I evaluated her and had to wake her up to speak with her. TRAVEL OUTSIDE OF THE [place] IN LAST 30 DAYS: No - Related Data Allergies/Adverse Reactions: metoclopramide HCl [From Reglan] Allergy (Unknown, Verified 07/16/17 12:22) Past Medical History - Social History Smoking Status: Never Smoker Chew tobacco use (# tins/day): No Frequency of alcohol use: None Drug Abuse: None Family History: DM Patient has suicidal ideation: No Patient has homicidal ideation: No - Past Medical History Cardiac Medical History: Reports: Hx Hypercholesterolemia, Hx Hypertension Endocrine Medical History: Reports: Hx Diabetes Mellitus Type 1, Hx Diabetes Mellitus Type 2 Renal/ Medical History: Reports: Hx Renal Insufficiency. Denies: Hx Peritoneal Dialysis GI Medical History: Reports: Hx Gastroesophageal Reflux Disease Musculoskeltal Medical History: Reports Hx Arthritis - Hand Skin Medical History: Reports Hx Eczema Psychiatric Medical History: Reports: Hx Anxiety, Hx Bipolar Disorder, Hx Depression Infectious Medical History: Reports: Hx MRSA Past Surgical History: Reports: Hx Cholecystectomy - Immunizations Immunizations up to date: Yes Hx Diphtheria, Pertussis, Tetanus Vaccination: Yes - unknown Hx Pneumococcal Vaccination: 05/04/10 Review of Systems - Review of Systems Notes: REVIEW OF SYSTEMS GEN: Denies fever, chills, weight loss ENT: Denies sore throat, nasal discharge, ear pain EYES: Denies blurry vision, eye pain, discharge CV: Denies chest pain, palpitations, edema RESP: Denies cough, shortness of breath, wheezing GI: Vomiting diarrhea MSK: Denies joint pain/swelling, edema, SKIN: Denies rash, skin lesions LYMPH: Denies swollen glands/lymph nodes NEURO: Denies headache, focal weakness or numbness, dizziness PSYCH: Denies depression, suicidal or homicidal ideation PHYSICAL EXAMINATION General: No acute distress, well-nourished Head: Atraumatic, normocephalic ENT: Mouth normal, oropharynx moist, no exudates or tonsillar enlargement Eyes: Conjunctiva normal, pupils equal, lids normal Neck: No JVD, supple, no guarding CVS: Normal rate, regular rhythm, no murmurs Resp: No resp distress, equal and normal breath sounds bilaterally GI: Nondistended, soft, no tenderness to palpation, no rebound or guarding Ext: No deformities, no edema, normal range of motion in upper and lower ext Back: No CVA or midline TTP Skin: No rash, warm Lymphatic: No lymphadeopathy noted Neuro: Awake, alert. Face symmetric. GCS 15. Physical Exam - Vital signs Vitals: Temp Pulse Resp BP Pulse Ox 97.5 F 129 H 20 182/96 H 100 07/16/17 12:33 07/16/17 12:33 07/16/17 12:33 07/16/17 12:33 07/16/17 12:33 Course - Re-evaluation Re-evalutation: 07/16/17 14:36 Patient presents with repeat episode of cyclic vomiting gastroparesis. She mildly tachycardic on initial triage however in my exam her heart rates down around 90 and she is sleeping comfortable he. She is requesting more pain medicine. We will give Haldol. Explained why narcotics are not useful. Will rule out DKA, less likely infectious. 07/16/17 15:45 Patient given Haldol and appears to be feeling better. She is frustrated because she cannot figure out what to do about her chronic recurrent abdominal pain. Her labs show mild leukocytosis however there is no anion gap I informed her that we did not seem to have a emergent diagnosis today. She will be discharged to follow-up with her primary care. I have discussed with the patient there likely diagnosis, aftercare plan, follow -up plans and my usual and customary return precautions. They verbalized understanding of this. - Vital Signs Vital signs: Temp Pulse Resp BP Pulse Ox 98.5 F 110 H 16 120/70 96 07/16/17 15:07 07/16/17 15:07 07/16/17 15:07 07/16/17 15:07 07/16/17 15:07 - Laboratory Result Diagrams: 07/16/17 14:57 07/16/17 14:57 Laboratory results interpreted by me: 07/16/17 07/16/17 07/16/17 13:00 14:57 14:57 WBC 13.7 H Seg Neutrophils % 90.1 H Lymphocytes % 5.4 L Absolute Neutrophils 12.3 H Carbon Dioxide 20 L Glucose 222 H Magnesium 1.4 L Total Protein 8.8 H Urine Protein 100 H Urine Glucose (UA) >=500 H Urine Ketones 20 H Discharge - Discharge Clinical Impression: Gastroparesis Condition: Good Disposition: HOME, SELF-CARE Instructions: Nausea or Vomiting, Nonspecific ([facility]), Vomiting ([facility]) Referrals: GLEN MCGRATH PA-C [Primary Care Provider] - Follow up as needed
[2017-07-16 15:13] LABS: ABSOLUTE BASOPHILS # (AUTO) 0.1 10^3/uL (0.0-0.2); ABSOLUTE LYMPHOCYTES (AUTO) 0.7 10^3/uL (0.5-4.7); ABSOLUTE MONOCYTES (AUTO) 0.6 10^3/uL (0.1-1.4); ABSOLUTE NEUT (AUTO) 12.3 10^3/uL (1.7-8.2); BASOPHILS % (AUTO) 0.4 % (0-2); HEMATOCRIT 38.7 % (36.0-47.0); HEMOGLOBIN 12.8 g/dL (12.0-15.5); LYMPHOCYTES % (AUTO) 5.4 % (13-45); MEAN CORPUSCULAR HEMOGLOBIN 28.8 pg (27.0-33.4); MEAN CORPUSCULAR HGB CONC 33.2 g/dL (32.0-36.0); MEAN CORPUSCULAR VOLUME 87 fl (80-97); MONOCYTES % (AUTO) 4.1 % (3-13); PLATELET COUNT 249 10^3/uL (150-450); RED BLOOD COUNT 4.45 10^6/uL (3.72-5.28); SEGMENTED NEUTROPHILS % (AUTO) 90.1 % (42-78); TOTAL CELLS COUNTED % (AUTO) 100 %; WHITE BLOOD COUNT 13.7 10^3/uL (4.0-10.5)
[2017-07-16 15:32] LABS: ALANINE AMINOTRANSFERASE 31 U/L (9-52); ALBUMIN 4.7 g/dL (3.5-5.0); ALKALINE PHOSPHATASE 99 U/L (38-126); ANION GAP 17 (5-19); ASPARTATE AMINO TRANSFERASE 22 U/L (14-36); BILIRUBIN,DIRECT 0.4 mg/dL (0.0-0.4); BILIRUBIN,TOTAL 0.4 mg/dL (0.2-1.3); BLOOD UREA NITROGEN 11 mg/dL (7-20); CALCIUM 9.9 mg/dL (8.4-10.2); CARBON DIOXIDE 20 mmol/L (22-30); CHLORIDE 106 mmol/L (98-107); GLUCOSE 222 mg/dL (75-110); POTASSIUM 4.9 mmol/L (3.6-5.0); SODIUM 142.7 mmol/L (137-145); TOTAL PROTEIN 8.8 g/dL (6.3-8.2)
[2017-07-16 15:50] VITALS: BP 119/70
== END 2017-07-16 15:50 | disposition home or self-care (01) ==
LOC: ER 12:22
DX: K31.84 Gastroparesis (principal); R10.10 Upper abdominal pain, unspecified; R11.10 Vomiting, unspecified; R11.2 Nausea with vomiting, unspecified
CPT/HCPCS: 99284; 96361; 96374; 36415; 83690; 83735; 84703; 85025; 80053; 81001; 71045; J3010; J3490 ×3; J2405; J7030

== ENCOUNTER 2017-09-24 18:00 | Inpatient (IN) | payer MEDICAID ==
[2017-09-24] MEDS ORDERED: HALOPERIDOL LACTATE INJ 5 MG/1 ML VIAL IM ONE (19:22)
[2017-09-24] MEDS ORDERED: NORMAL SALINE 1000 ML 1,000 ML IV ONE (19:22)
[2017-09-24] MEDS ORDERED: ONDANSETRON HCL INJ/PF 4 MG/2 ML SDV IV ONE (19:24)
--- NOTE | 2017-09-24 19:24 | ER Document Report ---
ED GI/ - General Chief Complaint: Abdominal Pain Stated Complaint: ABDOMINAL PAIN Time Seen by Provider: 09/24/17 18:46 Notes: Patient is a 42-year-old female who presents emergency emergency department with a chief complaint of epigastric pain, vomiting. Patient does have a well- known history of insulin-dependent diabetes with associated gastroparesis. she states that her symptoms started this morning. States that she did not take anything prior to arrival. States her pain is in the epigastric region but affecting her abdomen. She denies any bright red blood per rectum, melena. Denies any fevers or chills. Home medications include lisinopril, amlodipine, Dexilant, Lantus, NovoLog, Jardiance TRAVEL OUTSIDE OF THE [place] IN LAST 30 DAYS: No - Related Data Allergies/Adverse Reactions: metoclopramide HCl [From Reglan] Allergy (Unknown, Verified 09/24/17 18:07) Past Medical History - Social History Smoking Status: Never Smoker Chew tobacco use (# tins/day): No Frequency of alcohol use: None Drug Abuse: None Family History: DM Patient has suicidal ideation: No Patient has homicidal ideation: No - Past Medical History Cardiac Medical History: Reports: Hx Hypercholesterolemia, Hx Hypertension Endocrine Medical History: Reports: Hx Diabetes Mellitus Type 1, Hx Diabetes Mellitus Type 2 Renal/ Medical History: Reports: Hx Renal Insufficiency. Denies: Hx Peritoneal Dialysis GI Medical History: Reports: Hx Gastroesophageal Reflux Disease Musculoskeltal Medical History: Reports Hx Arthritis - Hand Skin Medical History: Reports Hx Eczema Psychiatric Medical History: Reports: Hx Anxiety, Hx Bipolar Disorder, Hx Depression Infectious Medical History: Reports: Hx MRSA Past Surgical History: Reports: Hx Cholecystectomy - Immunizations Immunizations up to date: Yes Hx Diphtheria, Pertussis, Tetanus Vaccination: Yes - unknown Hx Pneumococcal Vaccination: 05/04/10 Physical Exam - Notes Notes: PHYSICAL EXAM GENERAL: Alert, fidgeting around the bed crying but when asked to lie still, able to follow instructions HEAD: Normocephalic, atraumatic. EYES: Pupils equal, round, and reactive to light. Extraocular movements intact. ENT: Oral mucosa moist, tongue midline. NECK: Full range of motion. Supple. Trachea midline. LUNGS: Clear to auscultation bilaterally, no wheezes, rales, or rhonchi. No respiratory distress. HEART: Regular rate and rhythm. No murmurs, gallops, or rubs. ABDOMEN: Soft, nondistended, nontender. No guarding, rebound, or rigidity.. Bowel sounds present in all 4 quadrants. EXTREMITIES: Moves all 4 extremities spontaneously. No edema, radial and dorsalis pedis pulses 2/4 bilaterally. No cyanosis. NEUROLOGICAL: Alert and oriented x4. Normal speech. PSYCH: Normal affect, normal mood. SKIN: Warm, dry, normal turgor. No rashes or lesions noted. Course - Re-evaluation Re-evalutation: 09/24/17 20:34 Patient is a 42-year-old female who is well-known to the emergency department with a history of insulin-dependent diabetes and gastroparesis. Her labs today revealed that she has been DKA. Patient has received IV bolus of fluid and will continue to receive more. 09/24/17 21:37 Patient accepted to hospitalist. Will be placed on insulin sliding scale and admitted. Dr. Menjivar does not want her initiated on insulin gtt. Will continue to trend accuchecks - Laboratory Result Diagrams: 09/24/17 19:30 09/24/17 19:30 Laboratory results interpreted by me: 09/24/17 09/24/17 09/24/17 19:19 19:30 19:30 WBC 19.8 H RBC 5.52 H Hgb 15.7 H Hct 47.8 H Seg Neuts % (Manual) 86 H Lymphocytes % (Manual) 6 L Abs Neuts (Manual) 17.0 H Abs Monocytes (Manual) 1.6 H VBG pCO2 VBG HCO3 Sodium 146.5 H Potassium 5.2 H Carbon Dioxide 9 L* Anion Gap 38 H BUN 27 H Creatinine 1.71 H Est GFR ( Amer) 40 L Est GFR (Non-Af Amer) 33 L Glucose 392 H POC Glucose 336 H Calcium 11.1 H Total Protein 10.1 H Albumin 5.6 H Urine Glucose (UA) Urine Ketones Urine Blood 09/24/17 09/24/17 09/24/17 19:40 20:15 21:30 WBC RBC Hgb Hct Seg Neuts % (Manual) Lymphocytes % (Manual) Abs Neuts (Manual) Abs Monocytes (Manual) VBG pCO2 27.3 L VBG HCO3 13.4 L Sodium Potassium Carbon Dioxide Anion Gap BUN Creatinine Est GFR ( Amer) Est GFR (Non-Af Amer) Glucose POC Glucose 290 H Calcium Total Protein Albumin Urine Glucose (UA) >=500 H Urine Ketones 20 H Urine Blood MODERATE H Discharge - Discharge Clinical Impression: DKA (diabetic ketoacidoses) Qualifiers: Diabetes mellitus type: type 2 Diabetes mellitus penitentiary insulin use: unspecified penitentiary insulin use status Diabetes mellitus complication detail: without coma Qualified Code(s): E11.10 - Type 2 diabetes mellitus with ketoacidosis without coma Condition: Stable Disposition: ADMITTED INPATIENT Admitting Provider: Hospitalist Unit Admitted: IMCU
[2017-09-24] MEDS ORDERED: DIPHENHYDRAMINE HCL 50 MG/ML VIAL IV ONE (19:43)
[2017-09-24 19:46] LABS: HEMATOCRIT 47.8 % (36.0-47.0); HEMOGLOBIN 15.7 g/dL (12.0-15.5); MEAN CORPUSCULAR HEMOGLOBIN 28.4 pg (27.0-33.4); MEAN CORPUSCULAR HGB CONC 32.8 g/dL (32.0-36.0); MEAN CORPUSCULAR VOLUME 87 fl (80-97); PLATELET COUNT 392 10^3/uL (150-450); RED BLOOD COUNT 5.52 10^6/uL (3.72-5.28); RED CELL DISTRIBUTION WIDTH 13.3 % (11.5-14.0); WHITE BLOOD COUNT 19.8 10^3/uL (4.0-10.5)
[2017-09-24 19:59] LABS: ALANINE AMINOTRANSFERASE 25 U/L (9-52); ALBUMIN 5.6 g/dL (3.5-5.0); ALKALINE PHOSPHATASE 124 U/L (38-126); ASPARTATE AMINO TRANSFERASE 31 U/L (14-36); BILIRUBIN,DIRECT 0.4 mg/dL (0.0-0.4); BILIRUBIN,TOTAL 0.7 mg/dL (0.2-1.3); BLOOD UREA NITROGEN 27 mg/dL (7-20); CALCIUM 11.1 mg/dL (8.4-10.2); GLUCOSE 392 mg/dL (75-110); POTASSIUM 5.2 mmol/L (3.6-5.0); TOTAL PROTEIN 10.1 g/dL (6.3-8.2)
[2017-09-24 20:02] LABS: ABSOLUTE LYMPHOCYTES# (MANUAL) 1.2 10^3/uL (0.5-4.7); ABSOLUTE MONOCYTES # (MANUAL) 1.6 10^3/uL (0.1-1.4); BASOPHILS % (MANUAL) 0 % (0-2); EOSINOPHILS % (MANUAL) 0 % (0-6); LYMPHOCYTES % (MANUAL) 6 % (13-45); MONOCYTES % (MANUAL) 8 % (3-13); PLATELET COMMENT ADEQUATE; SEGMENTED NEUTROPHILS % (MAN) 86 % (42-78); TOTAL CELLS COUNTED 100; TOXIC GRANULATION SLIGHT
[2017-09-24 20:04] LABS: CHLORIDE 100 mmol/L (98-107); SODIUM 146.5 mmol/L (137-145)
[2017-09-24 20:11] LABS: VENOUS BLOOD BASE EXCESS -11.1 mmol/L; VENOUS BLOOD HCO3 13.4 mmol/L (20-32); VENOUS BLOOD PCO2 27.3 mmHg (35-63); VENOUS BLOOD PH 7.31 (7.30-7.42)
[2017-09-24 20:19] LABS: ANION GAP 38 (5-19)
[2017-09-24 20:21] LABS: CARBON DIOXIDE 9 mmol/L (22-30)
[2017-09-24] MEDS ORDERED: NORMAL SALINE 1000 ML 2,000 ML IV ONE (20:24)
[2017-09-24] MEDS ORDERED: FENTANYL CITRATE INJ/PF 100 MCG/2 ML AMPUL IV ONE (20:25)
[2017-09-24] MEDS ORDERED: INSULIN REG, HUMAN 100 UNIT/ML 3 ML VIAL (PYX) IV ONE (20:28)
[2017-09-24 21:01] LABS: APPEARANCE,URINE CLEAR; BILIRUBIN,URINE NEGATIVE (NEGATIVE); COLOR,URINE YELLOW; GLUCOSE, URINE >=500 mg/dL (NEGATIVE); KETONES,URINE 20 mg/dL (NEGATIVE); LEUKOCYTE ESTERASE,URINE NEGATIVE (NEGATIVE); NITRITE,URINE NEGATIVE (NEGATIVE); PROTEIN,URINE NEGATIVE (NEGATIVE); URINE SPECIFIC GRAVITY 1.024; UROBILINOGEN,URINE NEGATIVE mg/dL (<2.0)
[2017-09-24] MEDS ORDERED: ONDANSETRON HCL INJ/PF 4 MG/2 ML SDV IV PRN (22:20)
[2017-09-24] MEDS ORDERED: RINGERS SOLUTION,LACTATED 1,000 ML IV PRN (22:25)
[2017-09-24] MEDS ORDERED: GLUCAGON,HUMAN RECOMB 1 MG INJ IM PRN (22:29)
[2017-09-24] MEDS ORDERED: DEXTROSE 40% GEL 15 GM TUBE PO PRN ×2 (22:29)
[2017-09-24] MEDS ORDERED: INSULIN LISPRO 100 UNIT/ML 3 ML VIAL SUBCUT PRN (22:29)
[2017-09-24] MEDS ORDERED: DEXTROSE 50%-WATER 25 GM/50 ML DISP.SYRIN IV PRN ×2 (22:29)
[2017-09-24] MEDS ORDERED: HYDROMORPHONE HCL INJ/PF 2 MG/ML AMPULE IV PRN (22:39)
[2017-09-24] MEDS ORDERED: ERYTHROMYCIN INJ 500 MG VIAL IV PRN (22:58)
[2017-09-24] MEDS ORDERED: ERYTHROMYCIN LACTOBIONATE 500 MG in NORMAL SALINE 100 ML IV ONE (23:00)
[2017-09-24 23:56] LABS: BLOOD UREA NITROGEN 25 mg/dL (7-20); CALCIUM 9.9 mg/dL (8.4-10.2); CHLORIDE 109 mmol/L (98-107); GLUCOSE 264 mg/dL (75-110); POTASSIUM 5.8 mmol/L (3.6-5.0)
[2017-09-24] MEDS ORDERED: ERYTHROMYCIN INJ 500 MG VIAL IV ONE (23:56)
[2017-09-25 00:02] LABS: CARBON DIOXIDE 12 mmol/L (22-30); SODIUM 145.5 mmol/L (137-145)
[2017-09-25 00:04] LABS: ANION GAP 25 (5-19)
--- NOTE | 2017-09-25 00:45 | PDOC H&P ---
History of Present Illness Admission Date/PCP: 09/24/17 21:44 GLEN MCGRATH PA-C History of Present Illness: RUTH CA is a 42 year old black female patient, presents with chief complaint vomiting and abdominal pain 1 day duration. She describes abdominal pain as crampy and localized to epigastric area. The vomiting is intermittent and it is ingested material. Patient has long-standing history of insulin- dependent diabetes mellitus and recently diagnosed with gastroparesis. Her initial blood work shows hyperglycemia of 390 and elevated anion gap and urinalysis positive for ketones. Patient denied any chills, fever, chest pain, palpitation, diaphoresis, diarrhea, melena or hematochezia. No urinary complaints. Past Medical History Cardiac Medical History: Reports: Hyperlipidema, Hypertension Endocrine Medical History: Reports: Diabetes Mellitus Type 1, Diabetes Mellitus Type 2 GI Medical History: Reports: Gastroesophageal Reflux Disease Musculoskeltal Medical History: Reports: Arthritis - Hand Skin Medical History: Reports: Eczema Psychiatric Medical History: Reports: Bipolar Disorder, Depression Hematology: Reports: Anemia Infectious Medical History: Reports: Methicillin-Resistant Staph Aureus Past Surgical History Past Surgical History: Reports: Cholecystectomy Social History Smoking Status: Never Smoker Frequency of Alcohol Use: None Hx Recreational Drug Use: No Drugs: None Hx Prescription Drug Abuse: No Family History Family History: DM, Hypertension Parental Family History Reviewed: Yes Children Family History Reviewed: Yes Sibling(s) Family History Reviewed.: Yes Medication/Allergy Home Medications: Amlodipine Besylate [Norvasc 10 mg Tablet] 10 mg PO QAM 05/02/17 Clonidine [Catapres-Tts 2 (0.2 mg/24 Hr) Transderm Ptch] 1 patch TD WE@1000 12/10 Dexlansoprazole [Dexilant 60 mg Capsule] 60 mg PO DAILY 05/02/17 Insulin Lispro [Humalog Insulin (Lispro) 100 unit/mL] 0 unit SUBCUT .SLD SCALE 05/02/17 Lisinopril [Prinivil 10 mg Tablet] 10 mg PO DAILY 05/02/17 Fluoxetine HCl [Prozac 20 mg Capsule] 20 mg PO DAILY #30 capsule 05/05/17 Insulin Glargine,Hum.rec.anlog [Lantus Insulin 100 Unit/mL] 20 unit SUBCUT Q12 # 2 insuln.pen 05/05/17 Olanzapine [Zyprexa 5 mg Tablet] 5 mg PO QHS #30 tablet 05/05/17 Allergies/Adverse Reactions: metoclopramide HCl [From Reglan] Allergy (Unknown, Verified 09/24/17 18:07) Review of Systems Constitutional: PRESENT: as per HPI Eyes: PRESENT: as per HPI Cardiovascular: PRESENT: as per HPI Respiratory: PRESENT: as per HPI Gastrointestinal: PRESENT: as per HPI Neurological: PRESENT: as per HPI Physical Exam Vital Signs: Temp Pulse Resp BP Pulse Ox 98.8 F 24 H 124/68 100 09/24/17 22:30 09/24/17 23:31 09/24/17 23:31 09/24/17 23:31 Intake & Output 09/23/17 09/24/17 09/25/17 06:59 06:59 06:59 Output Total 600 Balance -600 General appearance: PRESENT: mild distress Head exam: PRESENT: atraumatic, normocephalic Respiratory exam: PRESENT: clear to auscultation bernardo. ABSENT: rales, rhonchi, wheezes Cardiovascular exam: PRESENT: RRR. ABSENT: diastolic murmur, rubs, systolic murmur GI/Abdominal exam: PRESENT: tenderness - Epigastric and lower abdominal Results Laboratory Results: 09/24/17 23:30 09/24/17 23:30 Sodium 145.5 H Potassium 5.8 H Chloride 109 H Carbon Dioxide 12 L Anion Gap 25 H BUN 25 H Creatinine 1.31 H Est GFR ( Amer) 54 L Est GFR (Non-Af Amer) 45 L Glucose 264 H Calcium 9.9 Assessment & Plan - Diagnosis (1) DKA, type 1 Qualifiers: Diabetes mellitus complication detail: without coma Qualified Code(s): E10.10 - Type 1 diabetes mellitus with ketoacidosis without coma Is this a current diagnosis for this admission?: Yes Plan: Since her blood glucose status to taper down after 2 doses of regular insulin I think patient does not need IV insulin drip. Her latest blood sugar was 290. We will put her on sliding scale and continue her Lantus. She will cautiously being hydrated. (2) Hypertension Qualifiers: Hypertension type: essential hypertension Qualified Code(s): I10 - Essential (primary) hypertension Is this a current diagnosis for this admission?: Yes Plan: Continue her home medication. (3) Hyperlipidemia Qualifiers: Hyperlipidemia type: unspecified Qualified Code(s): E78.5 - Hyperlipidemia , unspecified Is this a current diagnosis for this admission?: Yes Plan: Continue her home statin. (4) Gastroparesis Is this a current diagnosis for this admission?: Yes Plan: Patient has been started on prokinetic agent namely erythromycin 500 mg IV every 6 hours. Reportedly patient has allergies to Reglan so we started her on Zofran. - Time Time Spent: 30 to 50 Minutes - Inpatient Certification Medical Necessity: Need For IV Fluids
[2017-09-25] MEDS ORDERED: SODIUM POLYSTYRENE SULFONATE 15 GM/60 ML PO ONE (02:18)
[2017-09-25] MEDS ORDERED: ERYTHROMYCIN LACTOBIONATE 500 MG in NORMAL SALINE 100 ML IV SCH (06:00)
[2017-09-25 07:11] LABS: HEMATOCRIT 40.3 % (36.0-47.0); MEAN CORPUSCULAR HEMOGLOBIN 28.5 pg (27.0-33.4); MEAN CORPUSCULAR VOLUME 86 fl (80-97); PLATELET COUNT 302 10^3/uL (150-450); RED BLOOD COUNT 4.67 10^6/uL (3.72-5.28); RED CELL DISTRIBUTION WIDTH 13.3 % (11.5-14.0)
[2017-09-25 07:21] LABS: BLOOD UREA NITROGEN 24 mg/dL (7-20); CALCIUM 9.8 mg/dL (8.4-10.2); GLUCOSE 224 mg/dL (75-110); TRIGLYCERIDES 88 mg/dL (<150)
[2017-09-25 07:26] LABS: CARBON DIOXIDE 15 mmol/L (22-30); CHLORIDE 109 mmol/L (98-107); SODIUM 146.4 mmol/L (137-145)
[2017-09-25 07:32] LABS: DIRECT LDL 125 mg/dL (<100)
[2017-09-25 07:37] LABS: POTASSIUM 4.5 mmol/L (3.6-5.0)
[2017-09-25 07:38] LABS: ANION GAP 22 (5-19)
[2017-09-25 07:43] LABS: HEMOGLOBIN 13.3 g/dL (12.0-15.5); WHITE BLOOD COUNT 20.5 10^3/uL (4.0-10.5)
[2017-09-25] MEDS: ENOXAPARIN SODIUM INJ 40 MG/0.4 ML DISP.SYRIN SUBCUT SCH (09:53)
[2017-09-25] MEDS: PANTOPRAZOLE SODIUM 40 MG VIAL IV SCH ×2 (09:56→20:44)
[2017-09-25] MEDS ORDERED: NORMAL SALINE 100 ML with INSULIN REGULAR, HUMAN 100 UNIT IV PRN ×2 (11:46)
--- NOTE | 2017-09-25 12:18 | PDOC PROGRESS REPORT ---
Subjective Progress Note for:: 09/25/17 Subjective:: Still feeling nauseated Reason For Visit: DKA Physical Exam Vital Signs: Temp Pulse Resp BP Pulse Ox 97.8 F 118 H 16 139/83 H 100 09/25/17 08:04 09/25/17 08:04 09/25/17 08:04 09/25/17 08:04 09/25/17 08:04 Intake & Output 09/24/17 09/25/17 09/26/17 06:59 06:59 06:59 Intake Total 3950 Output Total 600 Balance 3350 Weight 151 lb 7.321 oz General appearance: PRESENT: no acute distress, cooperative Respiratory exam: PRESENT: clear to auscultation bernardo Cardiovascular exam: PRESENT: RRR GI/Abdominal exam: PRESENT: soft, tenderness - Mild diffuse Neurological exam: PRESENT: awake Psychiatric exam: PRESENT: unusual affect Skin exam: PRESENT: warm Results Laboratory Results: 09/25/17 05:47 09/25/17 05:47 09/24/17 09/25/17 09/25/17 23:30 05:47 05:47 WBC 20.5 H RBC 4.67 Hgb 13.3 D Hct 40.3 MCV 86 MCH 28.5 MCHC 33.0 RDW 13.3 Plt Count 302 Sodium 145.5 H 146.4 H Potassium 5.8 H 4.5 D Chloride 109 H 109 H Carbon Dioxide 12 L 15 L Anion Gap 25 H 22 H BUN 25 H 24 H Creatinine 1.31 H 1.30 H Est GFR ( Amer) 54 L 55 L Est GFR (Non-Af Amer) 45 L 45 L Glucose 264 H 224 H Calcium 9.9 9.8 Triglycerides 88 Cholesterol 193.80 LDL Cholesterol Direct 125 H VLDL Cholesterol 18.0 HDL Cholesterol 41 Assessment & Plan - Diagnosis (1) ARF (acute renal failure) Is this a current diagnosis for this admission?: Yes Plan: Volume depletion from uncontrolled diabetes. 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 Diabetes mellitus complication detail : without coma Qualified Code(s): E11.10 - Type 2 diabetes mellitus with ketoacidosis without coma Is this a current diagnosis for this admission?: Yes Plan: Insulin drip until her gap closes (3) Gastroparesis due to DM Is this a current diagnosis for this admission?: Yes Plan: Supportive care and improved diabetic control (4) Intractable vomiting Qualifiers: Nausea presence: with nausea Is this a current diagnosis for this admission?: Yes Plan: Due to an exacerbation of diabetic gastroparesis (5) Bipolar 1 disorder, depressed, moderate Is this a current diagnosis for this admission?: Yes Plan: We are still trying to sort out what her home meds are. Restart once available (6) Hypertension Qualifiers: Hypertension type: essential hypertension Qualified Code(s): I10 - Essential (primary) hypertension Is this a current diagnosis for this admission?: Yes Plan: Historically has been very high and difficult to control. Currently normotensive off medications, probably because of her volume depletion. Add back her home medications once we figure out what they are and as they are needed
[2017-09-25] MEDS ORDERED: NORMAL SALINE 1000 ML 1,000 ML IV PRN (12:19)
[2017-09-25 14:38] LABS: ALBUMIN 4.2 g/dL (3.5-5.0); ANION GAP 14 (5-19); BLOOD UREA NITROGEN 21 mg/dL (7-20); CALCIUM 9.3 mg/dL (8.4-10.2); CARBON DIOXIDE 22 mmol/L (22-30); CHLORIDE 106 mmol/L (98-107); GLUCOSE 183 mg/dL (75-110); PHOSPHORUS 3.3 mg/dL (2.5-4.5); POTASSIUM 3.7 mmol/L (3.6-5.0)
[2017-09-25] MEDS ORDERED: GLUCAGON,HUMAN RECOMB 1 MG INJ IM PRN (17:44)
[2017-09-25] MEDS ORDERED: DEXTROSE 50%-WATER SYRINGE 25 GM/50 ML DOSE IV PRN (17:44)
[2017-09-25] MEDS ORDERED: DEXTROSE 50%-WATER SYRINGE 12.5 GM/25 ML DOSE IV PRN (17:44)
[2017-09-25] MEDS ORDERED: DEXTROSE 40% GEL 15 GM TUBE X 2 PO PRN (17:44)
[2017-09-25] MEDS ORDERED: DEXTROSE 40% GEL 15 GM TUBE PO PRN (17:44)
[2017-09-25 18:59] LABS: ALBUMIN 3.8 g/dL (3.5-5.0); ANION GAP 13 (5-19); BLOOD UREA NITROGEN 16 mg/dL (7-20); CARBON DIOXIDE 23 mmol/L (22-30); CHLORIDE 107 mmol/L (98-107); GLUCOSE 143 mg/dL (75-110); PHOSPHORUS 2.4 mg/dL (2.5-4.5); POTASSIUM 3.7 mmol/L (3.6-5.0); SODIUM 143.4 mmol/L (137-145)
[2017-09-25] MEDS: DEXTROSE 5%-NORMAL SALINE 1,000 ML IV PRN (20:44)
[2017-09-25] MEDS: INSULIN LISPRO 100 UNIT/ML 3 ML VIAL SUBCUT PRN (22:38)
[2017-09-25 22:55] LABS: ALBUMIN 3.4 g/dL (3.5-5.0); ANION GAP 9 (5-19); BLOOD UREA NITROGEN 16 mg/dL (7-20); CALCIUM 8.8 mg/dL (8.4-10.2); CARBON DIOXIDE 24 mmol/L (22-30); CHLORIDE 106 mmol/L (98-107); GLUCOSE 221 mg/dL (75-110); PHOSPHORUS 2.3 mg/dL (2.5-4.5); POTASSIUM 3.7 mmol/L (3.6-5.0); SODIUM 138.9 mmol/L (137-145)
[2017-09-26 02:19] LABS: ABSOLUTE BASOPHILS # (AUTO) 0.1 10^3/uL (0.0-0.2); ABSOLUTE LYMPHOCYTES (AUTO) 2.6 10^3/uL (0.5-4.7); ABSOLUTE MONOCYTES (AUTO) 0.9 10^3/uL (0.1-1.4); ABSOLUTE NEUT (AUTO) 7.3 10^3/uL (1.7-8.2); BASOPHILS % (AUTO) 0.9 % (0-2); EOSINOPHILS % (AUTO) 0.4 % (0-6); HEMOGLOBIN 11.4 g/dL (12.0-15.5); MEAN CORPUSCULAR HEMOGLOBIN 28.9 pg (27.0-33.4); MEAN CORPUSCULAR HGB CONC 33.6 g/dL (32.0-36.0); MEAN CORPUSCULAR VOLUME 86 fl (80-97); MONOCYTES % (AUTO) 8.3 % (3-13); PLATELET COUNT 238 10^3/uL (150-450); RED BLOOD COUNT 3.97 10^6/uL (3.72-5.28); RED CELL DISTRIBUTION WIDTH 13.2 % (11.5-14.0); SEGMENTED NEUTROPHILS % (AUTO) 66.4 % (42-78); TOTAL CELLS COUNTED % (AUTO) 100 %; WHITE BLOOD COUNT 10.9 10^3/uL (4.0-10.5)
[2017-09-26 02:41] LABS: ALBUMIN 3.3 g/dL (3.5-5.0); ANION GAP 10 (5-19); BLOOD UREA NITROGEN 15 mg/dL (7-20); CALCIUM 8.6 mg/dL (8.4-10.2); CARBON DIOXIDE 24 mmol/L (22-30); CHLORIDE 108 mmol/L (98-107); GLUCOSE 196 mg/dL (75-110); PHOSPHORUS 2.2 mg/dL (2.5-4.5); POTASSIUM 3.8 mmol/L (3.6-5.0); SODIUM 142.2 mmol/L (137-145)
[2017-09-26] MEDS: DEXTROSE 5%-NORMAL SALINE 1,000 ML IV PRN (06:09)
[2017-09-26] MEDS: INSULIN LISPRO 100 UNIT/ML 3 ML VIAL SUBCUT PRN ×2 (07:24→10:15)
[2017-09-26] MEDS ORDERED: INSULIN GLARGINE,HUM.REC.ANLOG 300 UNIT/3 ML INSULN.PEN SUBCUT SCH (08:00)
[2017-09-26] MEDS: PANTOPRAZOLE SODIUM 40 MG VIAL IV SCH (10:16)
[2017-09-26] MEDS: ENOXAPARIN SODIUM INJ 40 MG/0.4 ML DISP.SYRIN SUBCUT SCH (10:18)
--- NOTE | 2017-09-26 12:00 | Physician Advisory Note ---
Physician Advisor ProgressNote .: Pursuant to the plan for [facility], I have reviewed the medical record for this patient. Physician Advisor Statement: Nice documentation of ARF, DKA, gastroparesis. Please consider documenting, if you agree: 1. "Acute Hypernatremia, suspect profound volume depletion" Thanks! CK
[2017-09-26] MEDS ORDERED: HYDROXYZINE HCL 10 MG TABLET PO PRN (16:10)
[2017-09-26] MEDS ORDERED: CLONIDINE 0.2 MG/24 HR PATCH.TDWK TD SCH (16:15)
[2017-09-26 16:30] VITALS: BP 135/76
[2017-09-26] MEDS ORDERED: INSULIN ASPART 3 UNIT SUBCUT SCH (22:00)
[2017-09-26] MEDS ORDERED: INSULIN LISPRO 100 UNIT/ML 3 ML VIAL SUBCUT SCH (22:00)
[2017-09-27] MEDS ORDERED: LANSOPRAZOLE 30 MG TAB.RAP.DR PO SCH (06:00)
[2017-09-27] MEDS ORDERED: FLUOXETINE HCL 20 MG CAPSULE PO SCH (08:00)
[2017-09-27] MEDS ORDERED: INSULIN GLARGINE,HUM.REC.ANLOG 300 UNIT/3 ML INSULN.PEN SUBCUT SCH (08:00)
--- NOTE | 2017-09-27 13:29 | DISCHARGE SUMMARY E ---
Discharge Summary NAME: RUTH CA : 1975 AGE: 42Y ADMITTED: 09/24/2017 DISCHARGED: 09/26/2017 CODE STATUS: Full code. PRIMARY CARE PROVIDER: Jamil Estrada M.D. DISCHARGE DIAGNOSES: 1. Abdominal pain and vomiting secondary to abdominal migraine. 2. Diabetic ketoacidosis secondary to number one. 3. Hyperlipidemia. 4. Hypertension. 5. Gastroesophageal reflux disease. 6. Osteoarthritis. 7. Bipolar disorder type 1. 8. Depression. DISCHARGE MEDICATIONS: 1. Catapres 0.2 mg transdermal patch weekly. 2. Dexilant 60 mg p.o. daily. 3. Prozac 40 mg p.o. q. a.m. 4. Atarax 2 mg p.o. q.8 hours p.r.n. 5. Lantus 20 units subcutaneous q. a.m. 6. Novolog FlexPen 3 units subcutaneous before meals and at bedtime. 7. Novolog sliding scale coverage. DIET: Diabetic. ACTIVITY: As tolerated. CONDITION: Good. DIAGNOSTICS: Hematology obtained on 09/26/2017: WBC 10.9, hemoglobin 11.4, hematocrit 34.0, platelet count of 238,000. Venous blood gas obtained on 09/24/2017: A pH of 7.31, pCO2 27.3, bicarb is 13.4. Chemistries obtained on 08/27/2017: Sodium 142, potassium 3.8, chloride 108, carbon dioxide 24, BUN 15, creatinine 0.98, glucose 196, calcium 8.6, phosphorus 2.2, magnesium 2.3, albumin 3.3. Urinalysis obtained on 09/24/2017: Color yellow, appearance clear, pH 5.0, specific gravity is 1.024, glucose positive, ketones 20, occult blood moderate, nitrite negative, bilirubin negative, urobilinogen is negative, leukocyte esterase is negative, WBC 0, RBC 1, bacteria trace, epithelial squamous cells 4, mucous rare. Microbiology: Blood cultures sent on 09/25/2017 reveal no growth. PHYSICAL EXAMINATION: GENERAL: On examination, the patient is a well-developed, well-nourished 42-year-old -[place] female who is awake, alert and oriented to person, place, time, and situation. She is verbal conversational. She does not appear to be in acute distress. VITAL SIGNS: Temperature 98.6, pulse 73, respirations 16, blood pressure 135/76, oxygen saturation 100% on room air. SKIN: Warm and dry. No rash, not diaphoretic. HEENT: Pupils equal, round and reactive to light and accommodation. Conjunctivae is pink. There is no evidence of JVP. CARDIOVASCULAR: Heart is regular rate and rhythm. No murmur, no rub. CHEST: Clear, symmetrical, unlabored. ABDOMEN: Soft, nontender, nondistended. BACK: No CVA tenderness or sacral edema. EXTREMITIES: No clubbing, cyanosis, or edema. PSYCHIATRIC: Appropriate affect. Pleasant mood. HISTORY OF PRESENT ILLNESS: The patient is a 42-year-old pleasant female who is well-known to the hospitalist service. The patient presented to the Emergency Department with the chief complaint of abdominal pain, nausea which was 24 hours in duration. The patient has a history of chronic abdominal migraine, which is managed by Pain Management. Receives injections every 30-90 days. The patient states that she had been doing quite well and had notified her primary and she was instructed to defer further injection until she redeveloped symptoms. However, the patient had a sudden onset of vomiting and came to the Emergency Department. The patient was found to be hyperglycemic with a blood sugar of 390 with a gap acidosis with urinalysis which was positive for ketones. The patient denied any fever, chills, chest pain, palpitations, diaphoresis, diarrhea, melena. No hematochezia or urinary symptoms and given the patient's condition, she was referred to the hospitalist service for admission and management. HOSPITAL COURSE: The patient was admitted to the medical unit. The patient was aggressively hydrated and started on an insulin drip. The patient's gap closed very quickly with volume resuscitation and the patient was transitioned over to subcutaneous basal insulin for which the patient tolerated well. The patient had complete symptom resolution. I contacted her pain management physician who has agreed to see her within the week and therefore the patient is quite ready for discharge. No changes have been made in the patient's current medication regimen given that this was felt to be due to the sequela of migraine and the patient is ready for discharge. DISCHARGE PLANNING: The patient is advised to follow up with her our body painter in [place] within one week. TIME SPENT: On this discharge including assessment, plan, physical examination, patient education, review of records is 25 minutes. DICTATING PHYSICIAN: MAX PARKER NP [id number] Y#: [id number] ID: [id number] JOB#: [id number] ACCT: [id number] cc:MAX PARKER NP [facility]
== END 2017-09-26 17:13 | disposition home or self-care (01) | DRG 638 ==
LOC: ER 18:00 → EH 21:44 → 3N 09-25 02:45
PROVIDERS: ADMIT Internal Medicine; ATTEND Internal Medicine
DX: E10.10 Type 1 diabetes mellitus with ketoacidosis without coma (principal); N17.9 Acute kidney failure, unspecified; G43.D0 Abdominal migraine, not intractable; E10.43 Type 1 diabetes mellitus with diabetic autonomic (poly)neuropathy; K31.84 Gastroparesis; E78.5 Hyperlipidemia, unspecified; I10 Essential (primary) hypertension; K21.9 Gastro-esophageal reflux disease without esophagitis; M19.90 Unspecified osteoarthritis, unspecified site; Z90.49 Acquired absence of other specified parts of digestive tract; Z86.14 Personal history of Methicillin resistant Staphylococcus aureus infection; Z83.3 Family history of diabetes mellitus; Z82.49 Family history of ischemic heart disease and other diseases of the circulatory system; F31.9 Bipolar disorder, unspecified; Z79.4 Long term (current) use of insulin; E86.9 Volume depletion, unspecified; R10.10 Upper abdominal pain, unspecified; Z88.8 Allergy status to other drugs, medicaments and biological substances
CPT/HCPCS: 36415; 80048; 80053; 80061; 80069; 81001; 82803; 82962; 83036; 83735; 85025; 85027; 87040; 96361; 96372; 96374; 96375; 99285; J1170; J1200; J1364; J1630; J1650; J1815; J2405; J3010; J7030; J7120; S0164

== ENCOUNTER 2017-09-30 09:31 | Emergency (ER) | payer MEDICAID ==
[2017-09-30] MEDS ORDERED: HALOPERIDOL LACTATE INJ 5 MG/1 ML VIAL IM ONE (09:49)
[2017-09-30] MEDS ORDERED: DIPHENHYDRAMINE HCL 50 MG/ML VIAL IM ONE (09:49)
[2017-09-30] MEDS ORDERED: DEXTROSE 5%-NORMAL SALINE 1,000 ML IV ONE (09:52)
--- NOTE | 2017-09-30 10:05 | ER Document Report ---
ED General - General Chief Complaint: Abdominal Pain Stated Complaint: ABDOMINAL PAIN Time Seen by Provider: 09/30/17 09:44 TRAVEL OUTSIDE OF THE [place] IN LAST 30 DAYS: No - HPI Notes: 42-year-old female diabetic, frequent ED visitor, who presents complaining of abdominal pain. Patient describes onset this morning upon waking of severe mid abdominal pain, crampy sharp otherwise poorly described. Associated vomiting, food and fluid, no coffee grounds or hematemesis. No diarrhea. No blood in her vomitus or stool. She has had multiple presentations of this in the past. She cannot tell me if she has a history of gastroparesis. No fever. Nonradiating pain. No other modifying factors, no other associated symptoms, no other provocative or palliative factors. - Related Data Allergies/Adverse Reactions: metoclopramide HCl [From Reglan] Allergy (Unknown, Verified 09/30/17 09:36) Past Medical History - Social History Smoking Status: Smoker,Current Status Unk Frequency of alcohol use: None Family History: DM, Hypertension - Past Medical History Cardiac Medical History: Reports: Hx Hypercholesterolemia, Hx Hypertension Endocrine Medical History: Reports: Hx Diabetes Mellitus Type 1, Hx Diabetes Mellitus Type 2 Renal/ Medical History: Reports: Hx Renal Insufficiency. Denies: Hx Peritoneal Dialysis GI Medical History: Reports: Hx Gastroesophageal Reflux Disease Musculoskeltal Medical History: Reports Hx Arthritis - Hand Skin Medical History: Reports Hx Eczema Psychiatric Medical History: Reports: Hx Anxiety, Hx Bipolar Disorder, Hx Depression Infectious Medical History: Reports: Hx MRSA Past Surgical History: Reports: Hx Cholecystectomy - Immunizations Immunizations up to date: Yes Hx Diphtheria, Pertussis, Tetanus Vaccination: Yes - unknown Hx Pneumococcal Vaccination: 05/04/10 Review of Systems - Review of Systems Notes: Review of systems as in the history of present illness, otherwise negative. Physical Exam - Vital signs Vitals: Temp Pulse Resp BP Pulse Ox 98.8 F 125 H 22 H 152/105 H 98 09/30/17 09:37 09/30/17 09:37 09/30/17 09:37 09/30/17 09:37 09/30/17 09:37 - Notes Notes: General: Well developed . Dry mucosa, moderate distress. HEENT: Normocephalic, atraumatic. Pupils equal round reactive to light. No JVD. Chest: No trauma. Respiratory: Good air exchange, normal excursion. Cardiac: Regular rhythm. No murmurs or gallops. Abdomen: Soft, nondistended. Non-tympanic. Moderate mid abdominal tenderness. On distracted examination, I am unable to really create any significant tenderness. Back: No asymmetry or gross abnormality. Motor: Grossly normal power and tone. Neurologic: Alert, nonfocal. Cranial nerves II-12 are intact. Sensation intact. Vascular: Well perfused. Normal peripheral pulses. Skin: No petechiae or purpura. Course - Re-evaluation Re-evalutation: 09/30/17 10:04 42-year-old female diabetic with acute on chronic abdominal pain. Consider underlying biliary tract, hepatic, gastritis or other etiology. May be gastritis or gastroparesis. Plan proceed with antiemetics, fluids, labs, serial examination and reassess. - Vital Signs Vital signs: Temp Pulse Resp BP Pulse Ox 98.8 F 125 H 22 H 152/105 H 98 09/30/17 09:37 09/30/17 09:37 09/30/17 09:37 09/30/17 09:37 09/30/17 09:37 - Laboratory Result Diagrams: 09/30/17 10:22 09/30/17 10:22 Laboratory results interpreted by me: 09/30/17 09/30/17 10:22 10:55 Carbon Dioxide 19 L Anion Gap 23 H Est GFR (Non-Af Amer) 55 L Glucose 327 H Calcium 10.4 H Total Protein 8.5 H Urine Protein 30 H Urine Glucose (UA) >=500 H Urine Ketones TRACE H Urine Blood LARGE H Discharge - Discharge Clinical Impression: Diabetes mellitus type 1, uncontrolled, insulin dependent Qualifiers: Diabetes mellitus complication status: with hyperglycemia Qualified Code(s): E10.65 - Type 1 diabetes mellitus with hyperglycemia Abdominal pain Qualifiers: Abdominal location: unspecified location Qualified Code(s): R10.9 - Unspecified abdominal pain Condition: Good Disposition: HOME, SELF-CARE Instructions: Abdominal Pain ([facility]) Prescriptions: Ondansetron [Zofran Odt 4 mg Tablet] 1 - 2 tab PO Q4H PRN #15 tab.rapdis PRN Reason: For Nausea/Vomiting Referrals: GLEN MCGRATH PA-C [Primary Care Provider] - Follow up as needed (Follow up tomorrow for a recheck)
[2017-09-30] MEDS ORDERED: HALOPERIDOL LACTATE INJ 5 MG/1 ML VIAL IV ONE (10:09)
[2017-09-30 10:35] LABS: ABSOLUTE LYMPHOCYTES (AUTO) 2.6 10^3/uL (0.5-4.7); ABSOLUTE MONOCYTES (AUTO) 0.6 10^3/uL (0.1-1.4); ABSOLUTE NEUT (AUTO) 6.8 10^3/uL (1.7-8.2); BASOPHILS % (AUTO) 0.4 % (0-2); EOSINOPHILS % (AUTO) 0.3 % (0-6); HEMATOCRIT 43.9 % (36.0-47.0); HEMOGLOBIN 14.7 g/dL (12.0-15.5); LYMPHOCYTES % (AUTO) 25.5 % (13-45); MEAN CORPUSCULAR HEMOGLOBIN 28.4 pg (27.0-33.4); MEAN CORPUSCULAR HGB CONC 33.5 g/dL (32.0-36.0); MEAN CORPUSCULAR VOLUME 85 fl (80-97); MONOCYTES % (AUTO) 5.8 % (3-13); PLATELET COUNT 329 10^3/uL (150-450); RED BLOOD COUNT 5.18 10^6/uL (3.72-5.28); RED CELL DISTRIBUTION WIDTH 12.8 % (11.5-14.0); TOTAL CELLS COUNTED % (AUTO) 100 %
[2017-09-30 11:03] LABS: BLOOD UREA NITROGEN 19 mg/dL (7-20); CALCIUM 10.4 mg/dL (8.4-10.2); GLUCOSE 327 mg/dL (75-110)
[2017-09-30 11:04] LABS: ALANINE AMINOTRANSFERASE 37 U/L (9-52); ALBUMIN 4.8 g/dL (3.5-5.0); ALKALINE PHOSPHATASE 97 U/L (38-126); ASPARTATE AMINO TRANSFERASE 25 U/L (14-36); BILIRUBIN,DIRECT 0.3 mg/dL (0.0-0.4); BILIRUBIN,TOTAL 0.3 mg/dL (0.2-1.3); LIPASE 174.1 U/L (23-300); POTASSIUM 3.7 mmol/L (3.6-5.0); TOTAL PROTEIN 8.5 g/dL (6.3-8.2)
[2017-09-30 11:09] LABS: ANION GAP 23 (5-19); CARBON DIOXIDE 19 mmol/L (22-30); CHLORIDE 101 mmol/L (98-107); SODIUM 142.6 mmol/L (137-145)
[2017-09-30 11:11] LABS: APPEARANCE,URINE SLIGHTLY-CLOUDY; BILIRUBIN,URINE NEGATIVE (NEGATIVE); COLOR,URINE YELLOW; GLUCOSE, URINE >=500 mg/dL (NEGATIVE); KETONES,URINE TRACE mg/dL (NEGATIVE); LEUKOCYTE ESTERASE,URINE NEGATIVE (NEGATIVE); NITRITE,URINE NEGATIVE (NEGATIVE); PROTEIN,URINE 30 mg/dL (NEGATIVE); URINE SPECIFIC GRAVITY 1.022; UROBILINOGEN,URINE NEGATIVE mg/dL (<2.0)
[2017-09-30 11:25] LABS: URINE AMPHETAMINES SCREEN NEGATIVE; URINE BARBITURATES SCREEN NEGATIVE; URINE BENZODIAZEPINES SCREEN NEGATIVE; URINE COCAINE SCREEN NEGATIVE; URINE MARIJUANA (THC) SCREEN NEGATIVE; URINE METHADONE SCREEN NEGATIVE; URINE PHENCYCLIDINE SCREEN NEGATIVE
[2017-09-30] MEDS ORDERED: NORMAL SALINE 1000 ML 1,000 ML IV ONE (11:32)
[2017-09-30] MEDS ORDERED: INSULIN LISPRO 100 UNIT/ML 3 ML VIAL SUBCUT ONE (11:32)
[2017-09-30 13:40] VITALS: BP 173/92
== END 2017-09-30 13:40 | disposition home or self-care (01) ==
LOC: ER 09:31
DX: R10.9 Unspecified abdominal pain (principal); G89.29 Other chronic pain; E10.65 Type 1 diabetes mellitus with hyperglycemia; R11.10 Vomiting, unspecified; I10 Essential (primary) hypertension; Z87.19 Personal history of other diseases of the digestive system; Z88.8 Allergy status to other drugs, medicaments and biological substances; Z90.49 Acquired absence of other specified parts of digestive tract
CPT/HCPCS: 99284; 96372; 96361; 96374; 36415; 83690; 84703; 85025; 80053; 81001; 80307; J1200; J1630; J1815; J7030

== ENCOUNTER 2017-10-28 11:55 | Emergency (ER) | payer MEDICARE, MEDICAID ==
[2017-10-28] MEDS ORDERED: HALOPERIDOL LACTATE INJ 5 MG/1 ML VIAL IM ONE (14:07)
[2017-10-28 14:14] LABS: ABSOLUTE LYMPHOCYTES (AUTO) 2.6 10^3/uL (0.5-4.7); ABSOLUTE MONOCYTES (AUTO) 1.4 10^3/uL (0.1-1.4); ABSOLUTE NEUT (AUTO) 11.4 10^3/uL (1.7-8.2); BASOPHILS % (AUTO) 0.3 % (0-2); HEMATOCRIT 41.2 % (36.0-47.0); HEMOGLOBIN 13.9 g/dL (12.0-15.5); LYMPHOCYTES % (AUTO) 16.6 % (13-45); MEAN CORPUSCULAR HEMOGLOBIN 28.5 pg (27.0-33.4); MEAN CORPUSCULAR HGB CONC 33.7 g/dL (32.0-36.0); MEAN CORPUSCULAR VOLUME 85 fl (80-97); MONOCYTES % (AUTO) 8.9 % (3-13); PLATELET COUNT 414 10^3/uL (150-450); RED BLOOD COUNT 4.87 10^6/uL (3.72-5.28); RED CELL DISTRIBUTION WIDTH 13.2 % (11.5-14.0); SEGMENTED NEUTROPHILS % (AUTO) 74.2 % (42-78); TOTAL CELLS COUNTED % (AUTO) 100 %; WHITE BLOOD COUNT 15.4 10^3/uL (4.0-10.5)
[2017-10-28] MEDS ORDERED: HALOPERIDOL LACTATE INJ 5 MG/1 ML VIAL IV ONE (14:14)
[2017-10-28 14:28] LABS: ALANINE AMINOTRANSFERASE 26 U/L (9-52); ALBUMIN 4.8 g/dL (3.5-5.0); ALKALINE PHOSPHATASE 109 U/L (38-126); ASPARTATE AMINO TRANSFERASE 20 U/L (14-36); BILIRUBIN,DIRECT 0.3 mg/dL (0.0-0.4); BILIRUBIN,TOTAL 0.5 mg/dL (0.2-1.3); BLOOD UREA NITROGEN 18 mg/dL (7-20); CALCIUM 10.7 mg/dL (8.4-10.2); CARBON DIOXIDE 16 mmol/L (22-30); CHLORIDE 103 mmol/L (98-107); GLUCOSE 333 mg/dL (75-110); LIPASE 118.5 U/L (23-300); POTASSIUM 4.1 mmol/L (3.6-5.0); TOTAL PROTEIN 8.5 g/dL (6.3-8.2)
[2017-10-28 14:33] LABS: SODIUM 140.5 mmol/L (137-145)
[2017-10-28 14:34] LABS: ANION GAP 22 (5-19)
[2017-10-28] MEDS ORDERED: NORMAL SALINE 1000 ML 1,000 ML IV PRN (14:47)
--- NOTE | 2017-10-28 14:47 | ER Document Report ---
ED General - General Chief Complaint: Abdominal Pain Stated Complaint: ABDOMINAL PAIN Time Seen by Provider: 10/28/17 14:16 Mode of Arrival: Ambulatory Information source: Patient Notes: 42-year-old female history of diabetes anxiety presents with complaints of abdominal pain. Patient denies any fevers or chills admits nausea vomiting. Patient notes abdominal pain is similar to previous pains TRAVEL OUTSIDE OF THE [place] IN LAST 30 DAYS: No - HPI Onset: This morning Onset/Duration: Sudden Quality of pain: Cramping Severity: Mild Pain Level: 1 Associated symptoms: Nausea, Vomiting Exacerbated by: Denies Relieved by: Denies Similar symptoms previously: Yes Recently seen / treated by doctor: Yes - Related Data Allergies/Adverse Reactions: metoclopramide HCl [From Reglan] Allergy (Unknown, Verified 10/28/17 11:56) Past Medical History - Social History Smoking Status: Never Smoker Cigarette use (# per day): No Chew tobacco use (# tins/day): No Smoking Education Provided: No Frequency of alcohol use: None Drug Abuse: None Family History: DM, Hypertension Patient has suicidal ideation: No Patient has homicidal ideation: No - Past Medical History Cardiac Medical History: Reports: Hx Hypercholesterolemia, Hx Hypertension Endocrine Medical History: Reports: Hx Diabetes Mellitus Type 1, Hx Diabetes Mellitus Type 2 Renal/ Medical History: Reports: Hx Renal Insufficiency. Denies: Hx Peritoneal Dialysis GI Medical History: Reports: Hx Gastroesophageal Reflux Disease Musculoskeltal Medical History: Reports Hx Arthritis - Hand Skin Medical History: Reports Hx Eczema Psychiatric Medical History: Reports: Hx Anxiety, Hx Bipolar Disorder, Hx Depression Infectious Medical History: Reports: Hx MRSA Past Surgical History: Reports: Hx Cholecystectomy - Immunizations Immunizations up to date: Yes Hx Diphtheria, Pertussis, Tetanus Vaccination: Yes - unknown Hx Pneumococcal Vaccination: 05/04/10 Review of Systems - Review of Systems Notes: REVIEW OF SYSTEMS: CONSTITUTIONAL : Denies fever, chills, or sweats. Denies recent illness. EENT: Denies eye, ear, throat, or mouth pain or symptoms. Denies nasal or sinus congestion or discharge. Denies throat, tongue, or mouth swelling or difficulty swallowing. CARDIOVASCULAR: Denies chest pain. Denies palpitations or racing or irregular heart beat. Denies ankle edema. RESPIRATORY: Denies cough, cold, or chest congestion. Denies shortness of breath, difficulty breathing, or wheezing. GASTROINTESTINAL: Admits to abdominal pain nausea vomiting GENITOURINARY: Denies difficulty urinating, painful urination, burning, frequency, blood in urine, or discharge. FEMALE GENITOURINARY: Denies vaginal bleeding, heavy or abnormal periods, irregular periods. Denies vaginal discharge or odor. MUSCULOSKELETAL: Denies back or neck pain or stiffness. Denies joint pain or swelling. SKIN: Denies rash, lesions or sores. HEMATOLOGIC : Denies easy bruising or bleeding. LYMPHATIC: Denies swollen, enlarged glands. NEUROLOGICAL: Denies confusion or altered mental status. Denies passing out or loss of consciousness. Denies dizziness or lightheadedness. Denies headache. Denies weakness or paralysis or loss of use of either side. Denies problems with gait or speech. Denies sensory loss, numbness, or tingling. Denies seizures. PSYCHIATRIC: Anxious ALL OTHER SYSTEMS REVIEWED AND NEGATIVE. PHYSICAL EXAMINATION: GENERAL: Well-appearing, well-nourished and in no acute distress. HEAD: Atraumatic, normocephalic. EYES: Pupils equal round and reactive to light, extraocular movements intact, conjunctiva are normal. ENT: Nares patent, oropharynx clear without exudates. Moist mucous membranes. NECK: Normal range of motion, supple without lymphadenopathy LUNGS: Breath sounds clear to auscultation bilaterally and equal. No wheezes rales or rhonchi. HEART: Regular rate and rhythm without murmurs ABDOMEN: Soft, nontender, nondistended abdomen. No guarding, no rebound. No masses appreciated. Female : deferred Musculoskeletal: Normal range of motion, no pitting or edema. No cyanosis. NEUROLOGICAL: Cranial nerves grossly intact. Normal speech, normal gait. Normal sensory, motor exams PSYCH: Patient noted to be anxious and agitated tachycardic SKIN: Warm, Dry, normal turgor, no rashes or lesions noted. Physical Exam - Vital signs Vitals: Temp Pulse Resp BP Pulse Ox 98.5 F 126 H 28 H 164/103 H 100 10/28/17 12:00 10/28/17 12:00 10/28/17 12:00 10/28/17 12:00 10/28/17 12:00 Course - Re-evaluation Re-evalutation: 10/28/17 14:47 Patient notes she is feeling much better already, a small anion gap is noted, awaiting VBG, IV fluids will be given 10/28/17 16:00 Patient's lab work notes no sign of diabetic ketoacidosis, fluids were given, patient looks well, she will be discharged home with nausea control After performing a Medical Screening Examination, I estimate there is LOW risk for ACUTE APPENDICITIS, BOWEL OBSTRUCTION, ACUTE CHOLECYSTITIS, PERFORATED DIVERTICULITIS, INCARCERATED HERNIA, PANCREATITIS, PELVIC INFLAMMATORY DISEASE, PERFORATED ULCER, ECTOPIC , or TUBO-OVARIAN ABSCESS, thus I consider the discharge disposition reasonable. Also, there is no evidence or peritonitis , sepsis, or toxicity. I have reevaluated this patient multiple times and no significant life threatening changes are noted. The patient and I have discussed the diagnosis and risks, and we agree with discharging home with close follow-up with the understanding that symptoms and presentations can change. We also discussed returning to the Emergency Department immediately if new or worsening symptoms occur. We have discussed the symptoms which are most concerning (e.g., bloody stool, fever, changing or worsening pain, vomiting) that necessitate immediate return. - Vital Signs Vital signs: Temp Pulse Resp BP Pulse Ox 98.5 F 126 H 28 H 164/103 H 100 10/28/17 12:00 10/28/17 12:00 10/28/17 12:00 10/28/17 12:00 10/28/17 12:00 - Laboratory Result Diagrams: 10/28/17 13:49 10/28/17 13:49 Laboratory results interpreted by me: 10/28/17 10/28/17 13:49 13:49 WBC 15.4 H Absolute Neutrophils 11.4 H Carbon Dioxide 16 L Anion Gap 22 H Glucose 333 H Calcium 10.7 H Total Protein 8.5 H Discharge - Discharge Clinical Impression: Gastroparesis due to DM Abdominal pain Qualifiers: Abdominal location: generalized Qualified Code(s): R10.84 - Generalized abdominal pain Condition: Stable Disposition: HOME, SELF-CARE Instructions: Abdominal Pain ([facility]) Prescriptions: Promethazine HCl [Phenergan] 50 mg RC Q6 #14 supp.rect Referrals: GLEN MCGRATH PA-C [Primary Care Provider] - Follow up tomorrow
[2017-10-28 15:57] LABS: VENOUS BLOOD BASE EXCESS -3.7 mmol/L; VENOUS BLOOD HCO3 21.2 mmol/L (20-32); VENOUS BLOOD PH 7.36 (7.30-7.42)
[2017-10-28 16:34] VITALS: BP 178/91
== END 2017-10-28 16:34 | disposition home or self-care (01) ==
LOC: ER 11:55
DX: E11.43 Type 2 diabetes mellitus with diabetic autonomic (poly)neuropathy (principal); K31.84 Gastroparesis; R10.84 Generalized abdominal pain; R11.2 Nausea with vomiting, unspecified; F41.9 Anxiety disorder, unspecified; I10 Essential (primary) hypertension
CPT/HCPCS: 99284; 96372; 36415; 83690; 85025; 80053; 82803; J1630

== ENCOUNTER 2017-11-10 20:00 | Emergency (ER) | payer MEDICARE, MEDICAID ==
[2017-11-10] MEDS ORDERED: KETOROLAC TROMETHAMINE INJ/PF 30 MG/1 ML SDV IV ONE (21:13)
[2017-11-10] MEDS ORDERED: ONDANSETRON 4 MG TAB.RAPDIS PO ONE (21:13)
[2017-11-10] MEDS ORDERED: NORMAL SALINE 1000 ML 1,000 ML IV ONE ×2 (21:15→22:04)
--- NOTE | 2017-11-10 21:18 | ER Document Report ---
ED General - General Chief Complaint: Abdominal Pain Stated Complaint: ABDOMINAL PAIN Time Seen by Provider: 11/10/17 20:26 Mode of Arrival: Ambulatory Information source: Patient Notes: 42-year-old female patient presenting with chief complaint of vomiting that started this morning. Patient reports mid abdominal pain with 2 episodes today of diarrhea. Patient reports that she has a history of diabetes and hypertension. Patient is writhing around in the bed yelling out stating that she needs pain medications. Patient's family member at bedside reports that she is compliant with her diabetes medications. Patient has been seen in this facility multiple times recently for the same complaint. Patient denies any fevers. Denies any urinary symptoms. TRAVEL OUTSIDE OF THE [place] IN LAST 30 DAYS: No - Related Data Allergies/Adverse Reactions: metoclopramide HCl [From [employer]] Allergy (Unknown, Verified 10/28/17 11:56) Past Medical History - General Information source: Patient - Social History Smoking Status: Never Smoker Chew tobacco use (# tins/day): No Frequency of alcohol use: None Drug Abuse: None Lives with: Family Family History: DM, Hypertension Patient has suicidal ideation: No Patient has homicidal ideation: No - Past Medical History Cardiac Medical History: Reports: Hx Hypercholesterolemia, Hx Hypertension Endocrine Medical History: Reports: Hx Diabetes Mellitus Type 1, Hx Diabetes Mellitus Type 2 Renal/ Medical History: Reports: Hx Renal Insufficiency. Denies: Hx Peritoneal Dialysis GI Medical History: Reports: Hx Gastroesophageal Reflux Disease Musculoskeltal Medical History: Reports Hx Arthritis - Hand Skin Medical History: Reports Hx Eczema Psychiatric Medical History: Reports: Hx Anxiety, Hx Bipolar Disorder, Hx Depression Infectious Medical History: Reports: Hx MRSA Past Surgical History: Reports: Hx Cholecystectomy - Immunizations Immunizations up to date: Yes Hx Diphtheria, Pertussis, Tetanus Vaccination: Yes - unknown Hx Pneumococcal Vaccination: 05/04/10 Review of Systems - Review of Systems Constitutional: No symptoms reported EENT: No symptoms reported Cardiovascular: No symptoms reported Respiratory: No symptoms reported Gastrointestinal: Abdominal pain, Diarrhea, Nausea, Vomiting. denies: Blood streaked bowels, Blood in vomit, Rectal bleeding Genitourinary: No symptoms reported. denies: Burning, Dysuria Female Genitourinary: No symptoms reported Musculoskeletal: No symptoms reported Skin: No symptoms reported Hematologic/Lymphatic: No symptoms reported Neurological/Psychological: No symptoms reported Physical Exam - Vital signs Vitals: Temp Pulse Resp BP Pulse Ox 97.7 F 125 H 26 H 170/91 H 99 11/10/17 20:11 11/10/17 20:11 11/10/17 20:11 11/10/17 20:11 11/10/17 20:11 Course - Re-evaluation Re-evalutation: 42-year-old female patient with history of diabetes and hypertension who is very well-known to our facility presents with mid abdominal pain, vomiting and diarrhea. Patient reports that this is been going on for several days. Patient has been seen for the same symptoms multiple times including one very recent visit. Chest x-ray is normal, CBC with white blood count 17.5, likely due to her vomiting. Comprehensive metabolic panel is unremarkable other than elevated glucose of 410 however there patient is not acidotic. Lipase is normal. Ph 7.49. EKG sinus tachycardia, no ST segment elevations or depressions are noted EKG is unchanged from previous on record. Multiple attempts made for IV access, IV access was obtained by the nurse after 6 attempts. After short amount of time the patent IV to patient's left wrist was unsatisfactory to the patient she does not want to hold her wrist still. I placed a 20-gauge peripheral IV to the patient's right upper arm 1 attempt. Will give patient IV fluids, antiemetics and pain medications. Patient received approximately 1 L of fluids before her IV infiltrated. Patient reports that she is feeling much better. Patient was resting very comfortably after administration of Haldol for her pain. Patient reports that her abdominal pain is much improved. Patient has not had any episodes of vomiting during her stay in the emergency department nor has she had any diarrhea. Patient's heart rate is 95. Patient will be discharged home in stable condition. - Vital Signs Vital signs: Temp Pulse Resp BP Pulse Ox 97.7 F 95 18 120/73 99 11/10/17 20:11 11/11/17 01:00 11/11/17 01:00 11/11/17 00:00 11/11/17 01:00 - Laboratory Result Diagrams: 11/10/17 21:00 11/10/17 21:00 Laboratory results interpreted by me: 11/10/17 11/10/17 11/10/17 21:00 21:00 21:00 WBC 17.5 H Seg Neutrophils % 87.6 H Lymphocytes % 7.5 L Absolute Neutrophils 15.4 H VBG pH 7.49 H VBG pCO2 28.9 L Carbon Dioxide 20 L Anion Gap 20 H Glucose 410 H* POC Glucose Calcium 10.9 H 11/10/17 21:13 WBC Seg Neutrophils % Lymphocytes % Absolute Neutrophils VBG pH VBG pCO2 Carbon Dioxide Anion Gap Glucose POC Glucose 359 H Calcium Discharge - Discharge Clinical Impression: Abdominal pain Qualifiers: Abdominal location: upper abdomen, unspecified Qualified Code(s): R10.10 - Upper abdominal pain, unspecified Condition: Stable Disposition: HOME, SELF-CARE Additional Instructions: Abdominal Pain There are many causes of abdominal pain. Pain can mean a serious problem requiring surgery (such as appendicitis). It can also be an innocent problem that goes away on its own (such as a viral infection). Often, time must pass to determine the cause of pain. The physician does not feel that hospitalization is necessary, at present. Things may change within the next 24 hours. Call the doctor or come back for re- examination if any problems occur, such as: (1) Pain that becomes more severe, steady, or becomes concentrated in one specific area. Also, pain that is more severe with movement or coughing. (2) Vomiting that persists or becomes more frequent. (3) Blood in the vomitus, urine, or bowel movements. Blood in the stool may have a tarry or black appearance. (4) Shaking chills or fever greater than 100 degrees F. (5) The abdomen becomes more distended or swollen. (6) Bowel movements cease. (7) Failure to improve as expected. Please continue taking her medications as prescribed. Please take the antinausea medications that I am giving you if you experience nausea or vomiting. Please follow-up with your primary care provider in the next 2-3 days for a recheck. Referrals: GLEN MCGRATH PA-C [Primary Care Provider] - Follow up as needed
--- NOTE | 2017-11-10 21:30 | RADIOLOGY REPORT (SQ) ---
EXAM DESCRIPTION: CHEST SINGLE VIEW COMPLETED DATE/TIME: 11/10/2017 9:20 pm REASON FOR STUDY: upper abd pain, sob COMPARISON: 07/16/2017. EXAM PARAMETERS: NUMBER OF VIEWS: One view. TECHNIQUE: Single frontal radiographic view of the chest acquired. RADIATION DOSE: NA LIMITATIONS: None. FINDINGS: LUNGS AND PLEURA: No opacities, masses or pneumothorax. No pleural effusion. MEDIASTINUM AND HILAR STRUCTURES: No masses. Contour normal. HEART AND VASCULAR STRUCTURES: Heart normal in size. Normal vasculature. BONES: No acute findings. HARDWARE: None in the chest. OTHER: No other significant finding. IMPRESSION: NO ACUTE RADIOGRAPHIC FINDING IN THE CHEST. TECHNICAL DOCUMENTATION: JOB ID: [id number] [employer]- All Rights Reserved Reading location - IP/workstation name: [email or web address]
--- NOTE | 2017-11-10 21:31 | EKG REPORT ---
SEVERITY:- ABNORMAL ECG - SINUS TACHYCARDIA CONSIDER LEFT VENTRICULAR HYPERTROPHY ST ELEV, PROBABLE NORMAL EARLY REPOL PATTERN : Confirmed by: Eduardo Novak MD 10-Nov-2017 21:30:56
[2017-11-10 21:56] LABS: VENOUS BLOOD BASE EXCESS -0.4 mmol/L; VENOUS BLOOD HCO3 21.6 mmol/L (20-32); VENOUS BLOOD PCO2 28.9 mmHg (35-63); VENOUS BLOOD PH 7.49 (7.30-7.42)
[2017-11-10 22:16] LABS: ABSOLUTE BASOPHILS # (AUTO) 0.1 10^3/uL (0.0-0.2); ABSOLUTE LYMPHOCYTES (AUTO) 1.3 10^3/uL (0.5-4.7); ABSOLUTE MONOCYTES (AUTO) 0.8 10^3/uL (0.1-1.4); ABSOLUTE NEUT (AUTO) 15.4 10^3/uL (1.7-8.2); BASOPHILS % (AUTO) 0.3 % (0-2); HEMATOCRIT 41.9 % (36.0-47.0); LYMPHOCYTES % (AUTO) 7.5 % (13-45); MEAN CORPUSCULAR HEMOGLOBIN 28.5 pg (27.0-33.4); MEAN CORPUSCULAR HGB CONC 33.5 g/dL (32.0-36.0); MEAN CORPUSCULAR VOLUME 85 fl (80-97); MONOCYTES % (AUTO) 4.6 % (3-13); PLATELET COUNT 440 10^3/uL (150-450); RED BLOOD COUNT 4.92 10^6/uL (3.72-5.28); RED CELL DISTRIBUTION WIDTH 13.6 % (11.5-14.0); SEGMENTED NEUTROPHILS % (AUTO) 87.6 % (42-78); TOTAL CELLS COUNTED % (AUTO) 100 %; WHITE BLOOD COUNT 17.5 10^3/uL (4.0-10.5)
[2017-11-10 22:19] LABS: ALANINE AMINOTRANSFERASE 29 U/L (9-52); ALBUMIN 4.9 g/dL (3.5-5.0); ALKALINE PHOSPHATASE 108 U/L (38-126); ASPARTATE AMINO TRANSFERASE 21 U/L (14-36); BILIRUBIN,DIRECT 0.4 mg/dL (0.0-0.4); BILIRUBIN,TOTAL 0.6 mg/dL (0.2-1.3); BLOOD UREA NITROGEN 12 mg/dL (7-20); CALCIUM 10.9 mg/dL (8.4-10.2); LIPASE 111.8 U/L (23-300); POTASSIUM 4.8 mmol/L (3.6-5.0); TOTAL PROTEIN 8.1 g/dL (6.3-8.2)
[2017-11-10 22:25] LABS: CARBON DIOXIDE 20 mmol/L (22-30); CHLORIDE 98 mmol/L (98-107); SODIUM 138.1 mmol/L (137-145)
[2017-11-10] MEDS ORDERED: FENTANYL CITRATE INJ/PF 100 MCG/2 ML AMPUL IV ONE (22:32)
[2017-11-10 23:07] LABS: GLUCOSE 410 mg/dL (75-110)
[2017-11-10 23:08] LABS: ANION GAP 20 (5-19)
[2017-11-10] MEDS ORDERED: HALOPERIDOL LACTATE INJ 5 MG/1 ML VIAL IV ONE (23:09)
[2017-11-11 00:39] VITALS: BP 120/73
[2017-11-11] MEDS ORDERED: ONDANSETRON ODT 4 MG TAB (6 TAB/ER DISP) PO PRN (00:57)
== END 2017-11-11 01:05 | disposition home or self-care (01) ==
LOC: ER 20:00
DX: R10.10 Upper abdominal pain, unspecified (principal); R19.7 Diarrhea, unspecified; R11.10 Vomiting, unspecified; E78.00 Pure hypercholesterolemia, unspecified; I10 Essential (primary) hypertension; E11.9 Type 2 diabetes mellitus without complications; Z86.14 Personal history of Methicillin resistant Staphylococcus aureus infection; Z90.49 Acquired absence of other specified parts of digestive tract
CPT/HCPCS: 93005; 99285; 96361; 96374; 96375; 36415; 82962; 83690; 85025; 80053; 82803; 71045; 93010; A9270; J3010; J1630; J1885; J7030; S0119

== ENCOUNTER 2017-12-16 07:25 | Emergency (ER) | payer MEDICARE, MEDICAID ==
--- NOTE | 2017-12-16 07:36 | ER Document Report ---
ED Medical Screen (RME) - General Chief Complaint: Abdominal Pain Stated Complaint: VOMITING/ABDOMINAL PAIN Time Seen by Provider: 12/16/17 07:36 Mode of Arrival: Wheelchair Information source: Patient Notes: 42-year-old female complaining of upper abdominal pain since 430 this morning and then she started vomiting. She is a type I diabetic with a history of this symptom that multiple GI doctors cannot give her a specific diagnosis. She takes Dexilant. sHe is rocking moaning and stating please help me. TRAVEL OUTSIDE OF THE [place] IN LAST 30 DAYS: No - Related Data Allergies/Adverse Reactions: metoclopramide HCl [From Reglan] Allergy (Unknown, Verified 10/28/17 11:56) Past Medical History - Social History Family history: DM, Hypertension - Past Medical History Cardiac Medical History: Reports: Hx Hypercholesterolemia, Hx Hypertension Endocrine Medical History: Reports: Hx Diabetes Mellitus Type 1, Hx Diabetes Mellitus Type 2 Renal/ Medical History: Reports: Hx Renal Insufficiency. Denies: Hx Peritoneal Dialysis GI Medical History: Reports: Hx Gastroesophageal Reflux Disease Musculoskeltal Medical History: Reports Hx Arthritis - Hand Skin Medical History: Reports Hx Eczema Psychiatric Medical History: Reports: Hx Anxiety, Hx Bipolar Disorder, Hx Depression Infectious Medical History: Reports: Hx MRSA Past Surgical History: Reports: Hx Cholecystectomy - Immunizations Immunizations up to date: Yes Hx Diphtheria, Pertussis, Tetanus Vaccination: Yes - unknown History of Influenza Vaccine for 02/2017 - 07/2017 Season: No Physical Exam - Vital signs Vitals: Temp Pulse Resp BP Pulse Ox 97.7 F 121 H 20 216/115 H 100 12/16/17 07:30 12/16/17 07:30 12/16/17 07:30 12/16/17 07:30 12/16/17 07:30 Course - Vital Signs Vital signs: Temp Pulse Resp BP Pulse Ox 97.7 F 121 H 20 216/115 H 100 12/16/17 07:30 12/16/17 07:30 12/16/17 07:30 12/16/17 07:30 12/16/17 07:30 Doctor's Discharge - Discharge Referrals: GLEN MCGRATH PA-C [Primary Care Provider] - Follow up as needed
[2017-12-16] MEDS ORDERED: NORMAL SALINE 1000 ML 1,000 ML IV ONE (07:39)
[2017-12-16] MEDS ORDERED: ONDANSETRON 4 MG TAB.RAPDIS PO ONE (07:40)
[2017-12-16] MEDS ORDERED: HYDROMORPHONE HCL INJ/PF 2 MG/ML AMPULE IV ONE (07:41)
[2017-12-16] MEDS ORDERED: FAMOTIDINE INJ/PF 20 MG/2 ML SDV IV ONE (07:47)
[2017-12-16] MEDS ORDERED: LIDOCAINE 2% VISCOUS SOLN 20 ML UDCUP PO ONE (07:47)
[2017-12-16] MEDS ORDERED: MAG HYDROX/AL HYDROX/SIMETH SUSP 30 ML UDCUP PO ONE (07:47)
--- NOTE | 2017-12-16 08:40 | ER Document Report ---
ED GI/ - General Chief Complaint: Abdominal Pain Stated Complaint: VOMITING/ABDOMINAL PAIN Time Seen by Provider: 12/16/17 07:36 Mode of Arrival: Ambulatory Notes: Chief complaint: abdominal pain: History of complain:( obtained from----patient) 42 years old female with chronic diabetes type 1, noncompliant chronic abdominal pain, presents today with episode of another epigastric pain twisting and turning around. Difficult historian. With nausea no vomiting no diarrhea. No fever chills or other constitutional symptoms. Onset: Sudden Duration: Prior to arrival Severity: Appeared to be severe Quality: Sharp Context: Diabetic gastroenteropathy the unknown Exacerbating factor and relieving factors: REVIEW OF SYSTEMS: CONSTITUTIONAL : Denies fever, chills, or sweats. Denies recent illness. EENT: Denies eye, ear, throat, or mouth pain or symptoms. Denies nasal or sinus congestion or discharge. Denies throat, tongue, or mouth swelling or difficulty swallowing. CARDIOVASCULAR: Denies chest pain. Denies palpitations or racing or irregular heart beat. Denies ankle edema. RESPIRATORY: Denies cough, cold, or chest congestion. Denies shortness of breath, difficulty breathing, or wheezing. GASTROINTESTINAL: Denies distention. Denies nausea, vomiting, or diarrhea. Denies blood in vomitus, stools, or per rectum. Denies black, tarry stools. Denies constipation. GENITOURINARY: Denies difficulty urinating, painful urination, burning, frequency, blood in urine, or discharge. FEMALE GENITOURINARY: Denies vaginal bleeding, heavy or abnormal periods, irregular periods. Denies vaginal discharge or odor. MUSCULOSKELETAL: Denies back or neck pain or stiffness. Denies joint pain or swelling. SKIN: Denies rash, lesions or sores. HEMATOLOGIC : Denies easy bruising or bleeding. LYMPHATIC: Denies swollen, enlarged glands. NEUROLOGICAL: Denies confusion or altered mental status. Denies passing out or loss of consciousness. Denies dizziness or lightheadedness. Denies headache. Denies weakness or paralysis or loss of use of either side. Denies problems with gait or speech. Denies sensory loss, numbness, or tingling. Denies seizures. PSYCHIATRIC: Denies anxiety or stress. Denies depression, suicidal ideation, or homicidal ideation. ALL OTHER SYSTEMS REVIEWED AND NEGATIVE. PHYSICAL EXAMINATION: GENERAL: Well-appearing, well-nourished and seems to be in acute distress. HEAD: Atraumatic, normocephalic. EYES: Pupils equal round and reactive to light, extraocular movements intact, conjunctiva are normal. ENT: Nares patent, oropharynx clear without exudates. Moist mucous membranes. NECK: Normal range of motion, supple without lymphadenopathy LUNGS: Breath sounds clear to auscultation bilaterally and equal. No wheezes rales or rhonchi. HEART: Regular rate and rhythm without murmurs ABDOMEN: Soft, nontender, nondistended abdomen. No guarding, no rebound. No masses appreciated. Female : deferred Musculoskeletal: Normal range of motion, no pitting or edema. No cyanosis. NEUROLOGICAL: Cranial nerves grossly intact. Normal speech, normal gait. Normal sensory, motor exams PSYCH: Normal mood, normal affect. SKIN: Warm, Dry, normal turgor, no rashes or lesions noted. Dictation was performed using [employer] voice recognition software TRAVEL OUTSIDE OF THE [place] IN LAST 30 DAYS: No - Related Data Allergies/Adverse Reactions: metoclopramide HCl [From Reglan] Allergy (Unknown, Verified 10/28/17 11:56) Past Medical History - General Information source: Patient - Social History Smoking Status: Unknown if Ever Smoked Cigarette use (# per day): No Chew tobacco use (# tins/day): No Smoking Education Provided: No Frequency of alcohol use: None Drug Abuse: None Lives with: Family Family History: DM, Hypertension - Medical History Notes: Dictated - Past Medical History Cardiac Medical History: Reports: Hx Hypercholesterolemia, Hx Hypertension Endocrine Medical History: Reports: Hx Diabetes Mellitus Type 1, Hx Diabetes Mellitus Type 2 Renal/ Medical History: Reports: Hx Renal Insufficiency. Denies: Hx Peritoneal Dialysis GI Medical History: Reports: Hx Gastroesophageal Reflux Disease Musculoskeletal Medical History: Reports Hx Arthritis - Hand Skin Medical History: Reports Hx Eczema Psychiatric Medical History: Reports: Hx Anxiety, Hx Bipolar Disorder, Hx Depression Infectious Medical History: Reports: Hx MRSA Past Surgical History: Reports: Hx Cholecystectomy Other: Dictated - Immunizations Immunizations up to date: Yes Hx Diphtheria, Pertussis, Tetanus Vaccination: Yes - unknown Hx Pneumococcal Vaccination: 05/04/10 Review of Systems - Review of Systems Notes: Dictated Physical Exam - Vital signs Vitals: Temp Pulse Resp BP Pulse Ox 97.7 F 121 H 20 216/115 H 100 12/16/17 07:30 12/16/17 07:30 12/16/17 07:30 12/16/17 07:30 12/16/17 07:30 - Notes Notes: Dictated Course - Re-evaluation Re-evalutation: 12/16/17 13:02 Given Ativan pain medication as well as Toradol which calmed her down. - Vital Signs Vital signs: Temp Pulse Resp BP Pulse Ox 97.7 F 121 H 25 H 183/108 H 96 12/16/17 07:30 12/16/17 07:30 12/16/17 12:23 12/16/17 12:23 12/16/17 12:23 - Laboratory Result Diagrams: 12/16/17 08:40 12/16/17 08:40 Laboratory results interpreted by me: 12/16/17 12/16/17 12/16/17 08:40 08:40 08:40 WBC 16.4 H RDW 14.4 H Seg Neutrophils % 81.2 H Absolute Neutrophils 13.3 H Carbon Dioxide 21 L Glucose 313 H Calcium 10.5 H Total Protein 8.8 H Urine Protein 100 H Urine Glucose (UA) >=500 H Ur Leukocyte Esterase TRACE H - Diagnostic Test Radiology reviewed: Reports reviewed - Ultrasound reported by radiologist as no gallstones, abdominal series reported by radiologist as Discharge - Discharge Clinical Impression: Gastroparesis due to DM, Chronic pain syndrome Abdominal pain Qualifiers: Abdominal location: generalized Qualified Code(s): R10.84 - Generalized abdominal pain Condition: Fair Disposition: HOME, SELF-CARE Instructions: Abdominal Pain ([facility]), Antinausea Medication ([facility]) Referrals: GLEN MCGRATH PA-C [Primary Care Provider] - Follow up as needed
[2017-12-16 09:06] LABS: APPEARANCE,URINE CLEAR; BILIRUBIN,URINE NEGATIVE (NEGATIVE); COLOR,URINE STRAW; GLUCOSE, URINE >=500 mg/dL (NEGATIVE); KETONES,URINE NEGATIVE (NEGATIVE); LEUKOCYTE ESTERASE,URINE TRACE (NEGATIVE); NITRITE,URINE NEGATIVE (NEGATIVE); PROTEIN,URINE 100 mg/dL (NEGATIVE); UROBILINOGEN,URINE NEGATIVE mg/dL (<2.0)
[2017-12-16 09:11] LABS: ABSOLUTE BASOPHILS # (AUTO) 0.1 10^3/uL (0.0-0.2); ABSOLUTE LYMPHOCYTES (AUTO) 2.2 10^3/uL (0.5-4.7); ABSOLUTE MONOCYTES (AUTO) 0.8 10^3/uL (0.1-1.4); ABSOLUTE NEUT (AUTO) 13.3 10^3/uL (1.7-8.2); BASOPHILS % (AUTO) 0.4 % (0-2); EOSINOPHILS % (AUTO) 0.2 % (0-6); HEMATOCRIT 44.2 % (36.0-47.0); HEMOGLOBIN 14.7 g/dL (12.0-15.5); LYMPHOCYTES % (AUTO) 13.5 % (13-45); MEAN CORPUSCULAR HEMOGLOBIN 28.7 pg (27.0-33.4); MEAN CORPUSCULAR HGB CONC 33.1 g/dL (32.0-36.0); MEAN CORPUSCULAR VOLUME 86 fl (80-97); MONOCYTES % (AUTO) 4.7 % (3-13); PLATELET COUNT 372 10^3/uL (150-450); RED BLOOD COUNT 5.11 10^6/uL (3.72-5.28); RED CELL DISTRIBUTION WIDTH 14.4 % (11.5-14.0); SEGMENTED NEUTROPHILS % (AUTO) 81.2 % (42-78); TOTAL CELLS COUNTED % (AUTO) 100 %; WHITE BLOOD COUNT 16.4 10^3/uL (4.0-10.5)
--- NOTE | 2017-12-16 09:19 | RADIOLOGY REPORT (SQ) ---
EXAM DESCRIPTION: ACUTE ABDOMEN SERIES COMPLETED DATE/TIME: 12/16/2017 9:06 am REASON FOR STUDY: upper abd pain, vomiting COMPARISON: 06/29/2017 NUMBER OF VIEWS: Three views. TECHNIQUE: Frontal chest, supine abdomen and upright/decubitus abdomen radiographic images acquired. LIMITATIONS: None. FINDINGS: CHEST: Lungs clear of infiltrates. FREE AIR: None. No abnormal gas collections. BOWEL GAS PATTERN: Nonobstructive pattern. No dilated loops or air fluid levels. Moderate colonic fe manan burden. CALCIFICATIONS: Stable bilateral nonspecific calcifications to the right and left of the mid-lower l umbar spine may represent calcified lymph nodes. Several small phleboliths in the pelvic region. HARDWARE: Prior cholecystectomy. SOFT TISSUES: No gross mass or suggestion of organomegaly. BONES: No acute fracture. No worrisome bone lesions. OTHER: No other significant finding. IMPRESSION: 1 No significant interval changes since the prior examination dated 06/29/2017. The gas p attern is nonspecific. TECHNICAL DOCUMENTATION: JOB ID: [id number] [employer]- All Rights Reserved Reading location - IP/workstation name: [email or web address]
[2017-12-16 09:32] LABS: ALANINE AMINOTRANSFERASE 28 U/L (9-52); ALBUMIN 4.9 g/dL (3.5-5.0); ALKALINE PHOSPHATASE 109 U/L (38-126); ANION GAP 18 (5-19); ASPARTATE AMINO TRANSFERASE 24 U/L (14-36); BILIRUBIN,DIRECT 0.3 mg/dL (0.0-0.4); BILIRUBIN,TOTAL 0.5 mg/dL (0.2-1.3); BLOOD UREA NITROGEN 14 mg/dL (7-20); CALCIUM 10.5 mg/dL (8.4-10.2); CARBON DIOXIDE 21 mmol/L (22-30); CHLORIDE 102 mmol/L (98-107); GLUCOSE 313 mg/dL (75-110); LIPASE 158.1 U/L (23-300); POTASSIUM 3.9 mmol/L (3.6-5.0); SODIUM 140.9 mmol/L (137-145); TOTAL PROTEIN 8.8 g/dL (6.3-8.2)
[2017-12-16] MEDS ORDERED: ZIPRASIDONE MESYLATE INJ/PF 20 MG SDV IM ONE (09:57)
[2017-12-16] MEDS ORDERED: LORAZEPAM INJ 2 MG/1 ML VIAL IV ONE (09:58)
[2017-12-16 10:06] LABS: URINE AMPHETAMINES SCREEN NEGATIVE; URINE BARBITURATES SCREEN NEGATIVE; URINE BENZODIAZEPINES SCREEN NEGATIVE; URINE COCAINE SCREEN NEGATIVE; URINE MARIJUANA (THC) SCREEN NEGATIVE; URINE METHADONE SCREEN NEGATIVE; URINE PHENCYCLIDINE SCREEN NEGATIVE
--- NOTE | 2017-12-16 11:40 | RADIOLOGY REPORT (SQ) ---
EXAM DESCRIPTION: U/S ABDOMEN LIMITED W/O DOP COMPLETED DATE/TIME: 12/16/2017 11:29 am REASON FOR STUDY: upper abd pain COMPARISON: None. TECHNIQUE: Dynamic and static grayscale images acquired of the abdomen and recorded on PACS. Additio nal selected color Doppler and spectral images recorded. LIMITATIONS: None. FINDINGS: PANCREAS: No masses. Visualized pancreatic duct normal caliber. LIVER: The liver measures 16.7 cm, normal size. No masses. Echotexture normal. LIVER VASCULATURE: Normal directional flow of the main portal vein and hepatic veins. GALLBLADDER: Prior cholecystectomy. ULTRASOUND-DETECTED ESPINO'S SIGN: Negative. INTRAHEPATIC DUCTS AND COMMON DUCT: CBD measures 5.4 mm in diameter, normal. The intrahepatic ducts normal caliber. No filling defects. INFERIOR VENA CAVA: Normal flow. AORTA: No aneurysm. RIGHT KIDNEY: The right kidney measures 9.8 mm, normal size. Normal echogenicity. No solid or suspic ious masses. No hydronephrosis. No calcifications. PERITONEAL AND RIGHT PLEURAL SPACE: No ascites or effusions. OTHER: No other significant findings. IMPRESSION: 1 Prior cholecystectomy. 2 Examination is otherwise unremarkable sonographically. TECHNICAL DOCUMENTATION: JOB ID: [id number] [employer]- All Rights Reserved Reading location - IP/workstation name: [email or web address]
[2017-12-16 12:01] LABS: URINE AMPHETAMINES SCREEN NEGATIVE; URINE BARBITURATES SCREEN NEGATIVE; URINE BENZODIAZEPINES SCREEN NEGATIVE; URINE COCAINE SCREEN NEGATIVE; URINE MARIJUANA (THC) SCREEN NEGATIVE; URINE METHADONE SCREEN NEGATIVE; URINE PHENCYCLIDINE SCREEN NEGATIVE
[2017-12-16 13:18] VITALS: BP 199/107
== END 2017-12-16 13:41 | disposition home or self-care (01) ==
LOC: ER 07:25
DX: E10.43 Type 1 diabetes mellitus with diabetic autonomic (poly)neuropathy (principal); K31.84 Gastroparesis; R10.84 Generalized abdominal pain; G89.4 Chronic pain syndrome; I10 Essential (primary) hypertension; Z88.8 Allergy status to other drugs, medicaments and biological substances; Z87.19 Personal history of other diseases of the digestive system; Z90.49 Acquired absence of other specified parts of digestive tract
CPT/HCPCS: 99284; 96372; 96374; 96375; 36415; 87086; 83690; 84703; 85025; 87088; 80053; 81001; 80307; 74022; 76705; A9270; J3490; J1170; J2060; J3486; J7030; S0028; S0119

== ENCOUNTER 2017-12-17 18:58 | Emergency (ER) | payer MEDICARE, MEDICAID | END 2017-12-17 19:05 | disposition left against medical advice (07) | LOC: ER 18:58 | DX: Z53.21 Procedure and treatment not carried out due to patient leaving prior to being seen by health care provider (principal) ==

== ENCOUNTER 2018-01-08 08:02 | Emergency (ER) | payer MEDICARE, MEDICAID ==
[2018-01-08] MEDS ORDERED: ONDANSETRON HCL INJ/PF 4 MG/2 ML SDV IV ONE (09:15)
[2018-01-08] MEDS ORDERED: HYDROMORPHONE HCL INJ/PF 2 MG/ML AMPULE IV ONE (09:15)
[2018-01-08] MEDS ORDERED: RINGERS SOLUTION,LACTATED 1,000 ML IV ONE (09:15)
--- NOTE | 2018-01-08 09:52 | ER Document Report ---
ED General - General Chief Complaint: Abdominal Pain Stated Complaint: ABDOMINAL PAIN/VOMITING Time Seen by Provider: 01/08/18 09:06 Mode of Arrival: Ambulatory Information source: Patient Notes: 42-year-old -[place] female with past medical history of type 1 diabetes mellitus, hypertension, hyperlipidemia, renal insufficiency, GERD, anxiety, bipolar disorder presents to the ED with severe epigastric abdominal pain that began yesterday morning and worsened this morning around 1 AM. Associated nausea, vomiting, and diarrhea. Reports issues with gastroparesis in the recent past, last seen on December 16, 2017 for same issue and workup was normal. Reports compliance with current insulin regimen including Lantus and sliding scale, with blood sugars ranging in the 160s-170s. Denies any recent travel or antibiotic use. TRAVEL OUTSIDE OF THE [place] IN LAST 30 DAYS: No - HPI Onset: Just prior to arrival Onset/Duration: Sudden, Worse Quality of pain: Stabbing Severity: Moderate Associated symptoms: Body/muscle aches, Nausea, Vomiting. denies: Chest pain, Fever Similar symptoms previously: Yes Recently seen / treated by doctor: Yes - Related Data Allergies/Adverse Reactions: metoclopramide HCl [From Reglan] Allergy (Unknown, Verified 12/17/17 18:59) Past Medical History - General Information source: Patient, [facility] Records - Social History Smoking Status: Never Smoker Chew tobacco use (# tins/day): No Frequency of alcohol use: None Drug Abuse: None Lives with: Family Family History: DM, Hypertension Patient has suicidal ideation: No Patient has homicidal ideation: No - Past Medical History Cardiac Medical History: Reports: Hx Hypercholesterolemia, Hx Hypertension Endocrine Medical History: Reports: Hx Diabetes Mellitus Type 1, Hx Diabetes Mellitus Type 2 Renal/ Medical History: Reports: Hx Renal Insufficiency. Denies: Hx Peritoneal Dialysis GI Medical History: Reports: Hx Gastroesophageal Reflux Disease Musculoskeletal Medical History: Reports Hx Arthritis - Hand Skin Medical History: Reports Hx Eczema Psychiatric Medical History: Reports: Hx Anxiety, Hx Bipolar Disorder, Hx Depression Infectious Medical History: Reports: Hx MRSA Past Surgical History: Reports: Hx Cholecystectomy - Immunizations Immunizations up to date: Yes Hx Diphtheria, Pertussis, Tetanus Vaccination: Yes - unknown Hx Pneumococcal Vaccination: 05/04/10 Review of Systems - Review of Systems Notes: REVIEW OF SYSTEMS: CONSTITUTIONAL : Denies fever, chills, or sweats. Denies recent illness. Denies weight loss, recent hospitalizations. EENT: Denies visual changes, eye pain. Denies nasal or sinus congestion or discharge. Denies sore throat, oral lesions, difficulty swallowing. CARDIOVASCULAR: Denies chest pain. Denies palpitations. Denies lower extremity edema. RESPIRATORY: Denies cough, cold, or chest congestion. Denies shortness of breath, wheezing. GASTROINTESTINAL: (+) abdominal pain, nausea, vomiting, diarrhea. Denies blood in vomitus, stools, or per rectum. Denies black, tarry stools. Denies constipation. GENITOURINARY: Denies difficulty urinating, painful urination, frequency, blood in urine, or vaginal discharge. MUSCULOSKELETAL: Denies back or neck pain or stiffness. Denies joint pain or swelling. SKIN: Denies rash, lesions or sores. HEMATOLOGIC : Denies easy bruising or bleeding. LYMPHATIC: Denies swollen glands. NEUROLOGICAL: Denies confusion or altered mental status. Denies passing out or loss of consciousness. Denies dizziness or lightheadedness. Denies headache. Denies weakness or paralysis. Denies problems difficulty with ambulation, slurred speech. Denies sensory loss, numbness, or tingling. Denies seizures. PSYCHIATRIC: Denies depression, suicidal ideation, or homicidal ideation. Denies visual or auditory hallucinations. Physical Exam - Vital signs Vitals: Temp Pulse Resp BP Pulse Ox 98.9 F 121 H 18 143/91 H 100 01/08/18 08:07 01/08/18 08:07 01/08/18 08:07 01/08/18 08:07 01/08/18 08:07 Notes: PHYSICAL EXAMINATION: GENERAL: On exam patient writhing and crying in pain. Well-nourished, well- developed. HEAD: Atraumatic, normocephalic. EYES: Pupils equal round and reactive to light, extraocular movements intact, conjunctiva are normal. ENT: Nares patent, oropharynx clear without exudates. Moist mucous membranes. NECK: Normal range of motion, supple without lymphadenopathy LUNGS: Breath sounds clear to auscultation bilaterally and equal. No wheezes rales or rhonchi. HEART: Tachycardic rate at 120 bpm and normal rhythm without murmurs ABDOMEN: Soft, non-distended with epigastric tenderness. No guarding, no rebound. No masses appreciated. Female : deferred Musculoskeletal: Normal range of motion, no pitting or edema. No cyanosis. NEUROLOGICAL: Cranial nerves grossly intact. Normal speech, normal gait. Normal sensory, motor exams PSYCH: Normal mood, normal affect. SKIN: Warm, Dry, normal turgor, no rashes or lesions noted. - Notes Notes: PHYSICAL EXAMINATION: GENERAL: Writhing around in the bed, crying but immediately stops when answering questions. HEAD: Atraumatic, normocephalic. EYES: Pupils equal round and reactive to light, extraocular movements intact, conjunctiva are normal. ENT: Nares patent, oropharynx clear without exudates. Moist mucous membranes. NECK: Normal range of motion, supple without lymphadenopathy LUNGS: Breath sounds clear to auscultation bilaterally and equal. No wheezes rales or rhonchi. HEART: Regular rate and rhythm without murmurs ABDOMEN: Soft, nontender, nondistended abdomen. No guarding, no rebound. No masses appreciated. Female : deferred Musculoskeletal: Normal range of motion, no pitting or edema. No cyanosis. NEUROLOGICAL: Cranial nerves grossly intact. Normal speech, normal gait. Normal sensory, motor exams PSYCH: Tearful SKIN: Warm, Dry, normal turgor, no rashes or lesions noted. Course - Re-evaluation Re-evalutation: 42-year-old female with history of gastroparesis, chronic abdominal pain presents with complaint of acute onset of abdominal pain that started last night. Patient has had associated nausea, vomiting and diarrhea. Patient has had multiple ED visits for similar symptoms. Patient was seen by myself upon arrival. Vital signs were reviewed. Patient is afebrile, normotensive and not hypoxic. Patient does not appear toxic or dehydrated. They are in no acute distress. Previous medical records and nursing notes reviewed. Multiple attempts to establish IV access were made until the patient refused further attempts. Patient did receive IM Dilaudid, Benadryl, Zofran during her ED course. 01/08/18 12:11 On reevaluation patient is resting comfortably. She is tolerating fluids. She will be discharged home with a prescription for Phenergan. 01/09/18 15:14 01/09/18 15:15 01/09/18 15:15 - Vital Signs Vital signs: Temp Pulse Resp BP Pulse Ox 98.4 F 85 16 121/82 99 01/08/18 12:17 01/08/18 12:17 01/08/18 12:17 01/08/18 12:17 01/08/18 12:17 - Laboratory Laboratory results interpreted by me: 01/08/18 10:28 Urine Glucose (UA) >=500 H Urine Ketones TRACE H Discharge - Discharge Clinical Impression: History of diabetic gastroparesis, Epigastric abdominal pain Nausea & vomiting Qualifiers: Vomiting type: unspecified Vomiting Intractability: non-intractable Qualified Code(s): R11.2 - Nausea with vomiting, unspecified Condition: Good Disposition: HOME, SELF-CARE Instructions: Abdominal Pain ([facility]), Vomiting ([facility]) Prescriptions: Promethazine HCl [Phenergan 25 mg Tablet] 25 mg PO Q8H #15 tablet Forms: Elevated Blood Pressure Referrals: GLEN MCGRATH PA-C [Primary Care Provider] - Follow up tomorrow
[2018-01-08] MEDS ORDERED: HYDROMORPHONE HCL INJ/PF 2 MG/ML AMPULE IM ONE (09:57)
[2018-01-08] MEDS ORDERED: LORAZEPAM INJ 2 MG/1 ML VIAL IM ONE (09:58)
[2018-01-08] MEDS ORDERED: DIPHENHYDRAMINE HCL 50 MG/ML VIAL IM ONE (09:58)
[2018-01-08 10:57] LABS: APPEARANCE,URINE SLIGHTLY-CLOUDY; BILIRUBIN,URINE NEGATIVE (NEGATIVE); COLOR,URINE YELLOW; GLUCOSE, URINE >=500 mg/dL (NEGATIVE); KETONES,URINE TRACE mg/dL (NEGATIVE); LEUKOCYTE ESTERASE,URINE NEGATIVE (NEGATIVE); NITRITE,URINE NEGATIVE (NEGATIVE); PROTEIN,URINE NEGATIVE (NEGATIVE); URINE SPECIFIC GRAVITY 1.028; UROBILINOGEN,URINE NEGATIVE mg/dL (<2.0)
[2018-01-08 11:16] LABS: URINE AMPHETAMINES SCREEN NEGATIVE; URINE BARBITURATES SCREEN NEGATIVE; URINE BENZODIAZEPINES SCREEN NEGATIVE; URINE COCAINE SCREEN NEGATIVE; URINE MARIJUANA (THC) SCREEN NEGATIVE; URINE METHADONE SCREEN NEGATIVE; URINE PHENCYCLIDINE SCREEN NEGATIVE
[2018-01-08 12:22] VITALS: BP 121/82
== END 2018-01-08 12:22 | disposition home or self-care (01) ==
LOC: ER 08:02
DX: E10.43 Type 1 diabetes mellitus with diabetic autonomic (poly)neuropathy (principal); K31.84 Gastroparesis; R10.13 Epigastric pain; R11.2 Nausea with vomiting, unspecified; R19.7 Diarrhea, unspecified; I10 Essential (primary) hypertension; E78.5 Hyperlipidemia, unspecified; Z79.4 Long term (current) use of insulin
CPT/HCPCS: 99284; 96372; 81001; 80307; J1200; J1170; J2060

== ENCOUNTER 2018-01-16 04:15 | Emergency (ER) | payer MEDICARE, MEDICAID ==
--- NOTE | 2018-01-16 05:10 | ER Document Report ---
ED Medical Screen (RME) - General Chief Complaint: Abdominal Pain Stated Complaint: ABDOMINAL PAIN Time Seen by Provider: 01/16/18 04:56 Notes: 42-year-old female patient emergency department complaining of abdominal pain. Patient reportedly has diabetes and gastroparesis. Moaning on the bed in pain. Cannot pinpoint where her pain is. Cannot tell me when it started. Denies any chest pain. I have greeted and performed a rapid initial assessment of this patient. A comprehensive ED assessment and evaluation of the patient, analysis of test results and completion of the medical decision making process will be conducted by additional ED providers. TRAVEL OUTSIDE OF THE [place] IN LAST 30 DAYS: No - Related Data Allergies/Adverse Reactions: metoclopramide HCl [From [employer]] Allergy (Unknown, Verified 01/16/18 04:19) Past Medical History - Social History Family history: DM, Hypertension - Past Medical History Cardiac Medical History: Reports: Hx Hypercholesterolemia, Hx Hypertension Endocrine Medical History: Reports: Hx Diabetes Mellitus Type 1, Hx Diabetes Mellitus Type 2 Renal/ Medical History: Reports: Hx Renal Insufficiency. Denies: Hx Peritoneal Dialysis GI Medical History: Reports: Hx Gastroesophageal Reflux Disease Musculoskeltal Medical History: Reports Hx Arthritis - Hand Skin Medical History: Reports Hx Eczema Psychiatric Medical History: Reports: Hx Anxiety, Hx Bipolar Disorder, Hx Depression Infectious Medical History: Reports: Hx MRSA Past Surgical History: Reports: Hx Cholecystectomy - Immunizations Immunizations up to date: Yes Hx Diphtheria, Pertussis, Tetanus Vaccination: Yes - unknown History of Influenza Vaccine for 02/2017 - 07/2017 Season: No Course - Laboratory Result Diagrams: 01/16/18 04:45 01/16/18 04:45 Laboratory results interpreted by me: 01/16/18 01/16/18 04:44 04:45 Carbon Dioxide 21 L Est GFR (Non-Af Amer) 53 L Glucose 264 H POC Glucose 274 H Calcium 10.3 H Total Protein 9.3 H Doctor's Discharge - Discharge Referrals: GLEN MCGRATH PA-C [Primary Care Provider] - Follow up as needed
[2018-01-16] MEDS ORDERED: RINGERS SOLUTION,LACTATED 1,000 ML IV ONE ×2 (05:14→06:49)
[2018-01-16] MEDS ORDERED: FENTANYL CITRATE INJ/PF 100 MCG/2 ML AMPUL IV ONE (05:16)
[2018-01-16] MEDS ORDERED: DIPHENHYDRAMINE HCL 50 MG/ML VIAL IV ONE (05:16)
[2018-01-16] MEDS ORDERED: PROCHLORPERAZINE EDISYLATE INJ 10 MG/2 ML VIAL IV ONE (05:16)
[2018-01-16 05:24] LABS: ABSOLUTE BASOPHILS # (AUTO) 0.1 10^3/uL (0.0-0.2); ABSOLUTE EOSINOPHILS # (AUTO) 0.1 10^3/uL (0.0-0.6); ABSOLUTE LYMPHOCYTES (AUTO) 2.3 10^3/uL (0.5-4.7); ABSOLUTE MONOCYTES (AUTO) 0.7 10^3/uL (0.1-1.4); BASOPHILS % (AUTO) 0.9 % (0-2); EOSINOPHILS % (AUTO) 1.1 % (0-6); HEMATOCRIT 43.2 % (36.0-47.0); HEMOGLOBIN 14.9 g/dL (12.0-15.5); LYMPHOCYTES % (AUTO) 28.1 % (13-45); MEAN CORPUSCULAR HEMOGLOBIN 29.8 pg (27.0-33.4); MEAN CORPUSCULAR HGB CONC 34.5 g/dL (32.0-36.0); MEAN CORPUSCULAR VOLUME 86 fl (80-97); MONOCYTES % (AUTO) 8.3 % (3-13); PLATELET COUNT 326 10^3/uL (150-450); RED CELL DISTRIBUTION WIDTH 13.5 % (11.5-14.0); SEGMENTED NEUTROPHILS % (AUTO) 61.6 % (42-78); TOTAL CELLS COUNTED % (AUTO) 100 %; WHITE BLOOD COUNT 8.1 10^3/uL (4.0-10.5)
[2018-01-16 05:40] LABS: ALANINE AMINOTRANSFERASE 23 U/L (9-52); ALBUMIN 4.9 g/dL (3.5-5.0); ALKALINE PHOSPHATASE 99 U/L (38-126); ANION GAP 19 (5-19); ASPARTATE AMINO TRANSFERASE 22 U/L (14-36); BILIRUBIN,DIRECT 0.3 mg/dL (0.0-0.4); BILIRUBIN,TOTAL 0.5 mg/dL (0.2-1.3); BLOOD UREA NITROGEN 17 mg/dL (7-20); CALCIUM 10.3 mg/dL (8.4-10.2); CARBON DIOXIDE 21 mmol/L (22-30); CHLORIDE 102 mmol/L (98-107); GLUCOSE 264 mg/dL (75-110); LIPASE 219.6 U/L (23-300); POTASSIUM 4.3 mmol/L (3.6-5.0); SODIUM 142.2 mmol/L (137-145); TOTAL PROTEIN 9.3 g/dL (6.3-8.2)
--- NOTE | 2018-01-16 06:33 | ER Document Report ---
ED General - General Mode of Arrival: Ambulatory Information source: Patient TRAVEL OUTSIDE OF THE [place] IN LAST 30 DAYS: No <FAITH GAMEZ - Last Filed: 01/16/18 07:20> <TRICIA DIXON - Last Filed: 01/16/18 08:25> - General Chief Complaint: Abdominal Pain Stated Complaint: ABDOMINAL PAIN Time Seen by Provider: 01/16/18 04:56 Notes: Patient is a 42 year old female with diabetes type 1, HTN, hyperlipidemia, GERD , anxiety, bipolar disorder, with a history of gastroparesis and chronic abdominal pain presents to the emergency department complaining of abdominal pain and nausea onset yesterday. While in triage, patient received 50 mg of Fentanyl, 25 mg of Benadryl, and 5 mg of Compazine. Patient states she now feels better and is able to go home and go back to sleep. (FAITH GAMEZ) - Related Data Allergies/Adverse Reactions: metoclopramide HCl [From Reglan] Allergy (Unknown, Verified 01/16/18 04:19) Past Medical History - General Information source: Patient - Social History Smoking Status: Former Smoker Chew tobacco use (# tins/day): No Frequency of alcohol use: None Drug Abuse: None Family History: DM, Hypertension Patient has suicidal ideation: No Patient has homicidal ideation: No - Past Medical History Cardiac Medical History: Reports: Hx Hypercholesterolemia, Hx Hypertension Endocrine Medical History: Reports: Hx Diabetes Mellitus Type 1, Hx Diabetes Mellitus Type 2 Renal/ Medical History: Reports: Hx Renal Insufficiency GI Medical History: Reports: Hx Gastroesophageal Reflux Disease Musculoskeletal Medical History: Reports Hx Arthritis - Hand Skin Medical History: Reports Hx Eczema Psychiatric Medical History: Reports: Hx Anxiety, Hx Bipolar Disorder, Hx Depression Infectious Medical History: Reports: Hx MRSA Past Surgical History: Reports: Hx Cholecystectomy - Immunizations Immunizations up to date: Yes Hx Diphtheria, Pertussis, Tetanus Vaccination: Yes - unknown Hx Pneumococcal Vaccination: 05/04/10 <FAITH GAMEZ - Last Filed: 01/16/18 07:20> Review of Systems - Review of Systems Constitutional: No symptoms reported EENT: No symptoms reported Cardiovascular: No symptoms reported Respiratory: No symptoms reported Gastrointestinal: See HPI, Abdominal pain, Nausea Genitourinary: No symptoms reported Female Genitourinary: No symptoms reported Musculoskeletal: No symptoms reported Skin: No symptoms reported Hematologic/Lymphatic: No symptoms reported Neurological/Psychological: No symptoms reported -: Yes All other systems reviewed and negative <FAITH GAMEZ - Last Filed: 01/16/18 07:20> Physical Exam - General General appearance: Appears well, Alert In distress: None - HEENT Head: Normocephalic, Atraumatic Eyes: Normal Conjunctiva: Normal Extraocular movements intact: Yes Pupils: PERRL Neck: Normal - Respiratory Respiratory status: No respiratory distress Chest status: Nontender Breath sounds: Normal Chest palpation: Normal - Cardiovascular Rhythm: Regular, Tachycardia Heart sounds: Normal auscultation Murmur: No Friction rub: No Gallop: None auscultated - Abdominal Inspection: Normal Distension: No distension Bowel sounds: Normal Tenderness: Nontender Organomegaly: No organomegaly - Back Back: Normal - Extremities General upper extremity: Normal ROM General lower extremity: Normal ROM - Neurological Neuro grossly intact: Yes Cognition: Normal Orientation: AAOx4 Zaina Coma Scale Eye Opening: Spontaneous Zaina Coma Scale Verbal: Oriented [place] Coma Scale Motor: Obeys Commands [place] Coma Scale Total: 15 Speech: Normal - Psychological Associated symptoms: Normal affect, Normal mood - Skin Skin Temperature: Warm Skin Moisture: Dry Skin Color: Normal <FAITH GAMEZ - Last Filed: 01/16/18 07:20> - Vital signs Vitals: Pulse Ox 99 01/16/18 04:44 Course - Laboratory Result Diagrams: 01/16/18 04:45 01/16/18 04:45 <FRANCOFAITH GRACE - Last Filed: 01/16/18 07:20> - Laboratory Result Diagrams: 01/16/18 04:45 01/16/18 04:45 <TRICIA DIXON - Last Filed: 01/16/18 08:25> - Vital Signs Vital signs: Temp Pulse Resp BP Pulse Ox 106 H 20 151/105 H 98 01/16/18 06:55 01/16/18 06:55 01/16/18 06:55 01/16/18 06:55 - Laboratory Laboratory results interpreted by me: 01/16/18 01/16/18 04:44 04:45 Carbon Dioxide 21 L Est GFR (Non-Af Amer) 53 L Glucose 264 H POC Glucose 274 H Calcium 10.3 H Total Protein 9.3 H Discharge <FAITH GAMEZ - Last Filed: 01/16/18 07:20> <TRICIA DIXON - Last Filed: 01/16/18 08:25> - Discharge Clinical Impression: Abdominal pain Qualifiers: Abdominal location: generalized Qualified Code(s): R10.84 - Generalized abdominal pain Diabetes Qualifiers: Diabetes mellitus type: type 1 Diabetes mellitus complication status: with unspecified complications Qualified Code(s): E10.8 - Type 1 diabetes mellitus with unspecified complications Hypertension Qualifiers: Hypertension type: essential hypertension Qualified Code(s): I10 - Essential ( primary) hypertension Condition: Stable Disposition: HOME, SELF-CARE Additional Instructions: Abdominal Pain There are many causes of abdominal pain. Pain can mean a serious problem requiring surgery (such as appendicitis). It can also be an innocent problem that goes away on its own (such as a viral infection). Often, time must pass to determine the cause of pain. The physician does not feel that hospitalization is necessary, at present. Things may change within the next 24 hours. Call the doctor or come back for re- examination if any problems occur, such as: (1) Pain that becomes more severe, steady, or becomes concentrated in one specific area. Also, pain that is more severe with movement or coughing. (2) Vomiting that persists or becomes more frequent. (3) Blood in the vomitus, urine, or bowel movements. Blood in the stool may have a tarry or black appearance. (4) Shaking chills or fever greater than 100 degrees F. (5) The abdomen becomes more distended or swollen. (6) Bowel movements cease. (7) Failure to improve as expected. Continue your regular medications. Take the Phenergan for nausea if needed. Follow up with your primary care provider today or tomorrow if not improving. RETURN TO THE EMERGENCY ROOM IF ANY NEW OR WORSENING SYMPTOMS. Prescriptions: Promethazine HCl [Phenergan 25 mg Tablet] 25 mg PO Q8 PRN #15 tablet PRN Reason: For Nausea/Vomiting Referrals: GLEN MCGRATH PA-C [Primary Care Provider] - Follow up as needed Scribe Attestation: 01/16/18 08:22 I personally performed the services described in the documentation, reviewed and edited the documentation which was dictated to the scribe in my presence, and it accurately records my words and actions. (TRICIA DIXON) Scribe Documentation - Scribe Written by Sameere:: Perez Gardner, 01/16/2018 06:58 acting as scribe for :: Bruna <FAITH GAMEZ - Last Filed: 01/16/18 07:20>
[2018-01-16] MEDS ORDERED: HALOPERIDOL LACTATE INJ 5 MG/1 ML VIAL IV ONE (07:30)
[2018-01-16] MEDS ORDERED: HALOPERIDOL LACTATE INJ 5 MG/1 ML VIAL ONE (07:35)
[2018-01-16 09:11] VITALS: BP 120/79
[2018-01-16 09:41] LABS: APPEARANCE,URINE CLOUDY; BILIRUBIN,URINE NEGATIVE (NEGATIVE); GLUCOSE, URINE >=500 mg/dL (NEGATIVE); KETONES,URINE TRACE mg/dL (NEGATIVE); LEUKOCYTE ESTERASE,URINE SMALL (NEGATIVE); NITRITE,URINE NEGATIVE (NEGATIVE); PROTEIN,URINE 30 mg/dL (NEGATIVE); URINE SPECIFIC GRAVITY 1.026; UROBILINOGEN,URINE NEGATIVE mg/dL (<2.0)
[2018-01-16 09:44] LABS: COLOR,URINE AMBER
[2018-01-16 09:57] LABS: URINE AMPHETAMINES SCREEN NEGATIVE; URINE BARBITURATES SCREEN NEGATIVE; URINE BENZODIAZEPINES SCREEN NEGATIVE; URINE COCAINE SCREEN NEGATIVE; URINE MARIJUANA (THC) SCREEN NEGATIVE; URINE METHADONE SCREEN NEGATIVE; URINE PHENCYCLIDINE SCREEN NEGATIVE
== END 2018-01-16 09:11 | disposition home or self-care (01) ==
LOC: ER 04:15
DX: E10.43 Type 1 diabetes mellitus with diabetic autonomic (poly)neuropathy (principal); K31.84 Gastroparesis; R10.84 Generalized abdominal pain; I10 Essential (primary) hypertension; R11.0 Nausea; R00.0 Tachycardia, unspecified; Z90.49 Acquired absence of other specified parts of digestive tract
CPT/HCPCS: 99284; 96361; 96374; 96375; 36415; 87086; 82962; 83690; 84703; 85025; 80053; 81001; 80307; J1200; J3010; J1630; J0780; J7120

== ENCOUNTER 2018-01-16 22:30 | Inpatient (IN) | payer MEDICARE, MEDICAID ==
[2018-01-16] MEDS ORDERED: NORMAL SALINE 1000 ML 1,000 ML IV ONE (23:49)
[2018-01-16] MEDS ORDERED: HALOPERIDOL LACTATE INJ 5 MG/1 ML VIAL IV ONE (23:49)
--- NOTE | 2018-01-17 01:02 | ER Document Report ---
ED General - General Chief Complaint: Abdominal Pain Stated Complaint: VOMITING Time Seen by Provider: 01/16/18 23:47 Notes: Patient is 42-year-old female with past medical history of diabetes, hypertension, diabetic gastroparesis with frequent visits to the emergency department for nausea, vomiting and abdominal pain, seen earlier this morning for the same who presents with ongoing vomiting and inability to tolerate oral intake at home. The patient reports that her symptoms have been continuous since she was discharged. She describes a generalized, cramping, aching abdominal pain. Any attempt at eating has worsened the pain. She states this feels very similar to exacerbations of her gastroparesis in the past. She has not contacted her primary doctor regarding today's concerns. She denies anything is new or different about today versus when she has had exacerbations of her gastroparesis in the past. She has not had any fever or constitutional symptoms. No dysuria or flank pain. TRAVEL OUTSIDE OF THE [place] IN LAST 30 DAYS: No - Related Data Allergies/Adverse Reactions: metoclopramide HCl [From Reglan] Allergy (Unknown, Verified 01/16/18 04:19) Past Medical History - General Information source: Patient, Relative - Social History Smoking Status: Never Smoker Frequency of alcohol use: None Drug Abuse: None Lives with: Family Family History: DM, Hypertension Patient has suicidal ideation: No Patient has homicidal ideation: No - Past Medical History Cardiac Medical History: Reports: Hx Hypercholesterolemia, Hx Hypertension Endocrine Medical History: Reports: Hx Diabetes Mellitus Type 1, Hx Diabetes Mellitus Type 2 Renal/ Medical History: Reports: Hx Renal Insufficiency. Denies: Hx Peritoneal Dialysis GI Medical History: Reports: Hx Gastroesophageal Reflux Disease Musculoskeletal Medical History: Reports Hx Arthritis - Hand Skin Medical History: Reports Hx Eczema Psychiatric Medical History: Reports: Hx Anxiety, Hx Bipolar Disorder, Hx Depression Infectious Medical History: Reports: Hx MRSA Past Surgical History: Reports: Hx Cholecystectomy - Immunizations Immunizations up to date: Yes Hx Diphtheria, Pertussis, Tetanus Vaccination: Yes - unknown Hx Pneumococcal Vaccination: 05/04/10 Review of Systems - Review of Systems Notes: Constitutional: Negative for fever. HENT: Negative for sore throat. Eyes: Negative for visual changes. Cardiovascular: Negative for chest pain. Respiratory: Negative for shortness of breath. Gastrointestinal: Positive for abdominal pain and vomiting Genitourinary: Negative for dysuria. Musculoskeletal: Negative for back pain. Skin: Negative for rash. Neurological: Negative for headaches, weakness or numbness. 10 point ROS negative except as marked above and in HPI. Physical Exam - Vital signs Vitals: Temp Pulse Resp BP Pulse Ox 98.2 F 123 H 18 153/101 H 100 01/16/18 22:31 01/16/18 22:31 01/16/18 22:31 01/16/18 22:31 01/16/18 22:31 Interpretation: Tachycardic Notes: PHYSICAL EXAMINATION: GENERAL: Appears mildly uncomfortable but in no acute distress HEAD: Atraumatic, normocephalic. EYES: Pupils equal round and reactive to light, extraocular movements intact, sclera anicteric, conjunctiva are normal. ENT: nares patent, oropharynx clear without exudates. Moderate dry mucous membranes. NECK: Normal range of motion, supple without lymphadenopathy LUNGS: Breath sounds clear to auscultation bilaterally and equal. No wheezes rales or rhonchi. HEART: Regular tachycardia without murmurs ABDOMEN: Soft, no focal abdominal tenderness, normoactive bowel sounds. No guarding, no rebound. No masses appreciated. EXTREMITIES: Normal range of motion, no pitting or edema. No cyanosis. NEUROLOGICAL: No focal neurological deficits. Moves all extremities spontaneously and on command. PSYCH: Moderately anxious SKIN: Warm, Dry, normal turgor, no rashes or lesions noted. Course - Re-evaluation Re-evalutation: 01/17/18 01:01 Patient presents with persistent vomiting, inability to tolerate oral intake, generalized abdominal pain since being discharged earlier this morning. Although does have a history of going to diabetic ketoacidosis patient has been seen in the emergency department many times for similar presentations including this morning was repeatedly reassuring evaluations as well as acute renal failure. Will obtain labs and reassess the patient the patient's laboratories are markedly 01/17/18 02:05 The patient's laboratories are substantially abnormal relative to this morning. The patient's vomiting has discontinued after receiving IV haloperidol. An ultrasound-guided IV was obtained but did infiltrate. I therefore placed a left external jugular IV with good blood return and flow. Patient will be given 12 units of IV insulin for her hyperkalemia as well as marked hyperglycemia. The hyperkalemia is likely a false elevation in the setting of marketed hyperglycemia. An EKG will be obtained to evaluate for any QRS widening or sign waves. Patient will continue to receive IV fluid resuscitation. Pain control adequate at this point. Given her marked lab abnormalities, persistent tachycardia she will require hospitalization. 01/17/18 03:52 - Vital Signs Vital signs: Temp Pulse Resp BP Pulse Ox 98.2 F 130 H 22 H 168/97 H 96 01/16/18 22:31 01/17/18 02:40 01/17/18 02:40 01/17/18 02:40 01/17/18 02:40 - Laboratory Result Diagrams: 01/17/18 00:50 01/16/18 00:50 Laboratory results interpreted by me: 01/16/18 01/16/18 01/17/18 00:50 00:50 00:50 WBC Seg Neutrophils % Lymphocytes % Absolute Neutrophils VBG pCO2 34.2 L VBG HCO3 18.0 L Potassium 6.6 H* Chloride 94 L Carbon Dioxide 18 L Anion Gap 26 H Creatinine 1.51 H Est GFR ( Amer) 46 L Est GFR (Non-Af Amer) 38 L Glucose 551 H* Calcium 10.6 H Direct Bilirubin 0.5 H AST 43 H Total Protein 9.7 H Albumin 5.3 H 01/17/18 00:50 WBC 18.1 H D Seg Neutrophils % 90.4 H Lymphocytes % 5.2 L Absolute Neutrophils 16.4 H VBG pCO2 VBG HCO3 Potassium Chloride Carbon Dioxide Anion Gap Creatinine Est GFR ( Amer) Est GFR (Non-Af Amer) Glucose Calcium Direct Bilirubin AST Total Protein Albumin - Diagnostic Test Radiology reviewed: Image reviewed, Reports reviewed Radiology results interpreted by me: 01/17/18 03:52 Two-view abdomen: No evidence of obstruction or perforation Discharge - Discharge Clinical Impression: Gastroparesis due to DM, Volume depletion, gastrointestinal loss, Persistent vomiting ARF (acute renal failure) Qualifiers: Acute renal failure type: unspecified Qualified Code(s): N17.9 - Acute kidney failure, unspecified Condition: Fair Disposition: ADMITTED OBSERVATION Admitting Provider: Hospitalist Unit Admitted: Telemetry Referrals: GLEN MCGRATH PA-C [Primary Care Provider] - Follow up as needed
[2018-01-17] MEDS ORDERED: INSULIN REG, HUMAN 100 UNIT/ML 3 ML VIAL (PYX) IV ONE (01:50)
[2018-01-17] MEDS ORDERED: NORMAL SALINE 1000 ML 1,000 ML IV ONE (01:50)
[2018-01-17] MEDS ORDERED: CALCIUM GLUCONATE 1000 MG/10 ML INJ IV ONE (01:52)
[2018-01-17 02:17] LABS: ALANINE AMINOTRANSFERASE 13 U/L (9-52); ALBUMIN 5.3 g/dL (3.5-5.0); ALKALINE PHOSPHATASE 118 U/L (38-126); ASPARTATE AMINO TRANSFERASE 43 U/L (14-36); BILIRUBIN,DIRECT 0.5 mg/dL (0.0-0.4); BILIRUBIN,TOTAL 0.6 mg/dL (0.2-1.3); LIPASE 131.7 U/L (23-300); TOTAL PROTEIN 9.7 g/dL (6.3-8.2)
[2018-01-17] MEDS ORDERED: HALOPERIDOL LACTATE INJ 5 MG/1 ML VIAL IV ONE (02:30)
[2018-01-17 03:18] LABS: ABSOLUTE LYMPHOCYTES (AUTO) 0.9 10^3/uL (0.5-4.7); ABSOLUTE MONOCYTES (AUTO) 0.8 10^3/uL (0.1-1.4); ABSOLUTE NEUT (AUTO) 16.4 10^3/uL (1.7-8.2); BASOPHILS % (AUTO) 0.1 % (0-2); HEMATOCRIT 43.5 % (36.0-47.0); HEMOGLOBIN 14.5 g/dL (12.0-15.5); LYMPHOCYTES % (AUTO) 5.2 % (13-45); MEAN CORPUSCULAR HEMOGLOBIN 29.5 pg (27.0-33.4); MEAN CORPUSCULAR HGB CONC 33.5 g/dL (32.0-36.0); MEAN CORPUSCULAR VOLUME 88 fl (80-97); MONOCYTES % (AUTO) 4.3 % (3-13); PLATELET COUNT 399 10^3/uL (150-450); RED BLOOD COUNT 4.93 10^6/uL (3.72-5.28); RED CELL DISTRIBUTION WIDTH 13.5 % (11.5-14.0); SEGMENTED NEUTROPHILS % (AUTO) 90.4 % (42-78); TOTAL CELLS COUNTED % (AUTO) 100 %
[2018-01-17 03:19] LABS: WHITE BLOOD COUNT 18.1 10^3/uL (4.0-10.5)
--- NOTE | 2018-01-17 03:39 | RADIOLOGY REPORT (SQ) ---
CLINICAL DATA: 42-year-old female with stomach pain and mid abdominal pain since yesterday morning. TECHNICAL DATA: Two x-ray views of the abdomen were performed including supine and upright images. Comparison: None. FINDINGS: The bowel gas pattern is nonspecific and nonobstructive. There is no evidence of free air or significant air-fluid levels. No pathologic abdominal calcifications are identified. Occasional pelvic phleboliths are noted. There are surgical clips in the right upper quadrant consistent with prior cholecystectomy. No focal soft tissue abnormalities are seen. The lung bases are clear. IMPRESSION: Nonspecific and nonobstructive bowel gas pattern. No acute abnormalities are identified.
[2018-01-17 04:22] LABS: CALCIUM 10.6 mg/dL (8.4-10.2); VENOUS BLOOD BASE EXCESS -6.7 mmol/L; VENOUS BLOOD PCO2 34.2 mmHg (35-63); VENOUS BLOOD PH 7.34 (7.30-7.42)
[2018-01-17 04:23] LABS: BLOOD UREA NITROGEN 18 mg/dL (7-20); GLUCOSE 551 mg/dL (75-110)
[2018-01-17 04:24] LABS: CARBON DIOXIDE 18 mmol/L (22-30); CHLORIDE 94 mmol/L (98-107); SODIUM 138.3 mmol/L (137-145)
[2018-01-17 04:25] LABS: POTASSIUM 6.6 mmol/L (3.6-5.0)
[2018-01-17] MEDS: NORMAL SALINE 1000 ML 1,000 ML IV PRN ×2 (05:18→11:24)
--- NOTE | 2018-01-17 05:37 | PDOC H&P ---
History of Present Illness Admission Date/PCP: 01/17/18 04:06 GELN MCGRATH PA-C Patient complains of: Abd pain, vomiting. History of Present Illness: RUTH CA is a 42 year old female presenting to the emergency department secondary to abdominal pain. States abdominal pain has been present for the past 1 day, described as a dull achy sensation that is constant in nature located diffusely in her abdomen. States she also vomited 5 times the past 24 hours, no blood noted in vomit. States vomiting does provide some relief of her abdominal pain but is short lasting and abdominal pain returns. Never had pain like this before. Currently pain is rated 3 out of 10. States she was in the ER earlier, discharged home in with worsening of abdominal pain and vomiting patient decided to return to the ER for further workup and evaluation. Past Medical History Cardiac Medical History: Reports: Hyperlipidema, Hypertension Endocrine Medical History: Reports: Diabetes Mellitus Type 1, Diabetes Mellitus Type 2 GI Medical History: Reports: Gastroesophageal Reflux Disease Musculoskeltal Medical History: Reports: Arthritis - Hand Skin Medical History: Reports: Eczema Psychiatric Medical History: Reports: Bipolar Disorder, Depression Hematology: Reports: Anemia Infectious Medical History: Reports: Methicillin-Resistant Staph Aureus Past Surgical History Past Surgical History: Reports: Cholecystectomy Social History Information Source: Patient Lives with: Family Smoking Status: Never Smoker Frequency of Alcohol Use: None Hx Recreational Drug Use: No Drugs: None Hx Prescription Drug Abuse: No Family History Family History: None, DM, Hypertension Parental Family History Reviewed: Yes Children Family History Reviewed: Yes Sibling(s) Family History Reviewed.: Yes Medication/Allergy Home Medications: Amlodipine Besylate 1 tab PO DAILY 10/28/17 Clonidine 1 patch TOP Q1 10/28/17 Insulin Glargine,Hum.rec.anlog [Lantus] 15 units SQ BID 10/28/17 Lisinopril 1 tab PO DAILY 10/28/17 Promethazine HCl [Phenergan] 50 mg RC Q6 #14 supp.rect 10/28/17 Lactulose 20 gm PO BID #120 ml 12/16/17 Metoclopramide HCl [Reglan] 10 mg PO Q6HP PRN #30 tablet 12/16/17 Promethazine HCl [Phenergan 25 mg Tablet] 25 mg PO Q8H #15 tablet 01/08/18 Promethazine HCl [Phenergan 25 mg Tablet] 25 mg PO Q8 PRN #15 tablet 01/16/18 Allergies/Adverse Reactions: metoclopramide HCl [From Reglan] Allergy (Unknown, Verified 01/16/18 04:19) Review of Systems Constitutional: PRESENT: fatigue, weakness. ABSENT: fever(s), weight loss Nose, Mouth, and Throat: ABSENT: headache(s) Cardiovascular: ABSENT: chest pain, dyspnea on exertion, edema, palpitations Gastrointestinal: PRESENT: abdominal pain, nausea, vomiting. ABSENT: diarrhea Neurological: ABSENT: abnormal gait, abnormal speech, confusion, dizziness, focal weakness, syncope Physical Exam Vital Signs: Temp Pulse Resp BP Pulse Ox 98.2 F 130 H 22 H 168/97 H 96 01/16/18 22:31 01/17/18 02:40 01/17/18 02:40 01/17/18 02:40 01/17/18 02:40 Intake & Output 01/15/18 01/16/18 01/17/18 06:59 06:59 06:59 Intake Total 1000 Balance 1000 General appearance: PRESENT: mild distress, well-developed, well-nourished Head exam: PRESENT: atraumatic, normocephalic Eye exam: PRESENT: conjunctiva pink, EOMI, PERRLA. ABSENT: scleral icterus Ear exam: PRESENT: normal external ear exam Mouth exam: PRESENT: moist, tongue midline Neck exam: ABSENT: carotid bruit, JVD, lymphadenopathy, thyromegaly Respiratory exam: PRESENT: clear to auscultation bernardo. ABSENT: rales, rhonchi, wheezes Cardiovascular exam: PRESENT: tachycardia. ABSENT: diastolic murmur, rubs, systolic murmur Pulses: PRESENT: normal dorsalis pedis pul Vascular exam: PRESENT: normal capillary refill GI/Abdominal exam: PRESENT: hypoactive bowel sounds, soft. ABSENT: distended, guarding, mass, organolmegaly, rebound, tenderness Rectal exam: PRESENT: deferred Extremities exam: PRESENT: full ROM. ABSENT: calf tenderness, clubbing, pedal edema Neurological exam: PRESENT: alert, awake, oriented to person, oriented to place , oriented to time, oriented to situation, CN II-XII grossly intact. ABSENT: motor sensory deficit Psychiatric exam: PRESENT: appropriate affect, normal mood. ABSENT: homicidal ideation, suicidal ideation Skin exam: PRESENT: dry, intact, warm. ABSENT: cyanosis, rash Results Laboratory Results: 01/17/18 01/17/18 01/17/18 00:50 00:50 00:50 WBC 18.1 H D VBG pH 7.34 VBG pCO2 34.2 L VBG HCO3 18.0 L Potassium 6.6 H* D Chloride 94 L Creatinine 1.51 H Impressions: Abdomen X-Ray 01/17/18 02:07 IMPRESSION: Nonspecific and nonobstructive bowel gas pattern. No acute abnormalities are identified. Assessment & Plan - Diagnosis (1) Hyperkalemia Is this a current diagnosis for this admission?: Yes (2) ARF (acute renal failure) Qualifiers: Acute renal failure type: unspecified Qualified Code(s): N17.9 - Acute kidney failure, unspecified Is this a current diagnosis for this admission?: Yes (3) Gastroparesis due to DM Is this a current diagnosis for this admission?: Yes (4) Persistent vomiting Is this a current diagnosis for this admission?: Yes (5) Volume depletion, gastrointestinal loss Is this a current diagnosis for this admission?: Yes (6) Abdominal pain Qualifiers: Abdominal location: generalized Qualified Code(s): R10.84 - Generalized abdominal pain Is this a current diagnosis for this admission?: Yes Plan: Patient to be admitted to cardiac telemetry for inpatient monitoring and evaluation. Made an IV fluids overnight with normal saline and wound 5 mL's per hour. Repeat CBC, BMP in a.m. Patient given insulin 12 units IV in ED as well as calcium gluconate 2 g 1. EJ line placed in emergency department. Zofran every 4 as needed nausea, vomiting. Continue to monitor patient's blood sugars every 2 hours and adjust regimen accordingly. Continue patient's home medications. Patient does not appear to be in DKA at this time. Will continue to monitor closely. - Time Time Spent: 30 to 50 Minutes Anticipated discharge: Home
[2018-01-17 05:56] LABS: ANION GAP 26 (5-19)
[2018-01-17 08:39] LABS: ANION GAP 18 (5-19); BLOOD UREA NITROGEN 17 mg/dL (7-20); CALCIUM 10.7 mg/dL (8.4-10.2); CARBON DIOXIDE 18 mmol/L (22-30); CHLORIDE 106 mmol/L (98-107); GLUCOSE 346 mg/dL (75-110); SODIUM 141.9 mmol/L (137-145)
[2018-01-17] MEDS: ONDANSETRON HCL INJ/PF 4 MG/2 ML SDV IV PRN (08:42)
[2018-01-17 08:50] LABS: POTASSIUM 4.6 mmol/L (3.6-5.0)
--- NOTE | 2018-01-17 08:58 | EKG REPORT ---
SEVERITY:- ABNORMAL ECG - SINUS TACHYCARDIA TAQUERIA, CONSIDER BIATRIAL ABNORMALITIES : Confirmed by: Opal Garcia 17-Jan-2018 08:58:06
[2018-01-17] MEDS ORDERED: DEXTROSE 50%-WATER 25 GM/50 ML DISP.SYRIN IV PRN ×2 (09:09)
[2018-01-17] MEDS ORDERED: GLUCAGON,HUMAN RECOMB 1 MG INJ IM PRN (09:09)
[2018-01-17] MEDS ORDERED: DEXTROSE 40% GEL 15 GM TUBE PO PRN ×2 (09:09)
[2018-01-17] MEDS: INSULIN LISPRO 100 UNIT/ML 3 ML VIAL SUBCUT PRN ×2 (09:40→18:08)
[2018-01-17] MEDS ORDERED: DICYCLOMINE HCL INJ 20 MG/2 ML AMPULE IM ONE (09:45)
[2018-01-17] MEDS: ENOXAPARIN SODIUM INJ 40 MG/0.4 ML DISP.SYRIN SUBCUT SCH (10:28)
[2018-01-17] MEDS ORDERED: HYDRALAZINE HCL INJ/PF 20 MG/1 ML SDV IV PRN (10:36)
[2018-01-17 10:41] LABS: APPEARANCE,URINE SLIGHTLY-CLOUDY; BILIRUBIN,URINE NEGATIVE (NEGATIVE); COLOR,URINE YELLOW; GLUCOSE, URINE >=500 mg/dL (NEGATIVE); KETONES,URINE 80 mg/dL (NEGATIVE); LEUKOCYTE ESTERASE,URINE NEGATIVE (NEGATIVE); NITRITE,URINE NEGATIVE (NEGATIVE); PROTEIN,URINE NEGATIVE (NEGATIVE); URINE SPECIFIC GRAVITY 1.025; UROBILINOGEN,URINE NEGATIVE mg/dL (<2.0)
[2018-01-17] MEDS ORDERED: (PENDING PHARMACY ID) (Lisinopril [Prinivil] 20 MG) PO SCH (10:45)
[2018-01-17] MEDS ORDERED: METOPROLOL TARTRATE PF/INJ 5 MG/5 ML SDV IV PRN (10:51)
[2018-01-17] MEDS: MORPHINE SULFATE 10 MG/ML INJ IV PRN ×2 (11:11→22:24)
[2018-01-17] MEDS: SUCRALFATE 1 GM TABLET PO SCH ×3 (11:17→21:17)
[2018-01-17] MEDS: LISINOPRIL 10 MG TABLET PO SCH (11:18)
[2018-01-17] MEDS ORDERED: LIDOCAINE 2% VISCOUS SOLN 20 ML UDCUP PO ONE (12:00)
[2018-01-17] MEDS ORDERED: MAG HYDROX/AL HYDROX/SIMETH SUSP 30 ML UDCUP PO ONE (12:00)
[2018-01-17 17:38] LABS: ANION GAP 15 (5-19); BLOOD UREA NITROGEN 16 mg/dL (7-20); CALCIUM 10.1 mg/dL (8.4-10.2); CARBON DIOXIDE 23 mmol/L (22-30); CHLORIDE 104 mmol/L (98-107); GLUCOSE 212 mg/dL (75-110); POTASSIUM 4.8 mmol/L (3.6-5.0); SODIUM 142.2 mmol/L (137-145)
[2018-01-17] MEDS: LANSOPRAZOLE 30 MG TAB.RAP.DR PO SCH (18:09)
--- NOTE | 2018-01-17 18:31 | Progress Note ---
Provider Note Provider Note: 42 Y.O. F with a hx of DM II admitted to [facility] for hyperglycemia and hyperkalemia. Patient admits to not taking her insulin at home because she 'did not feel well.' 1. HYPERGLYCEMIA: treated with IV insulin in ED. Continue home dose glargine and humalog sliding scale insulin. Request Contact Lens Cutter meet with patient prior to discharge. 2. ABDOMINAL PAIN: likely secondary to persistent n/v and GERD. Administered Bentyl IM but offered no relief. Initiate PPI, GI cocktail, and morphine iv PRN 3. HYPERkalemia: Initial potassium 6.6. treated with IV insulin and Calcium Gluconate IV today. No EKG changes. Repeat potassium levels normal. 4. NAUSEA & VOMITING: antiemetics PRN
[2018-01-17] MEDS: METOPROLOL TARTRATE 25 MG TABLET PO SCH (21:14)
[2018-01-18] MEDS: METOPROLOL TARTRATE 25 MG TABLET PO SCH ×3 (00:14→21:26)
[2018-01-18] MEDS: NORMAL SALINE 1000 ML 1,000 ML IV PRN ×2 (00:19→11:22)
[2018-01-18] MEDS: ONDANSETRON HCL INJ/PF 4 MG/2 ML SDV IV PRN (04:15)
[2018-01-18] MEDS: LANSOPRAZOLE 30 MG TAB.RAP.DR PO SCH ×2 (05:07→16:51)
[2018-01-18] MEDS: MORPHINE SULFATE 10 MG/ML INJ IV PRN ×4 (05:11→23:18)
[2018-01-18] MEDS ORDERED: METOPROLOL TARTRATE PF/INJ 5 MG/5 ML SDV IV PRN (08:16)
[2018-01-18 08:17] LABS: ANION GAP 18 (5-19); BLOOD UREA NITROGEN 16 mg/dL (7-20); CALCIUM 9.7 mg/dL (8.4-10.2); CARBON DIOXIDE 16 mmol/L (22-30); CHLORIDE 103 mmol/L (98-107); GLUCOSE 219 mg/dL (75-110); POTASSIUM 5.4 mmol/L (3.6-5.0); SODIUM 137.3 mmol/L (137-145)
[2018-01-18] MEDS: INSULIN GLARGINE,HUM.REC.ANLOG 300 UNIT/3 ML INSULN.PEN SUBCUT SCH (08:21)
[2018-01-18] MEDS: SUCRALFATE 1 GM TABLET PO SCH ×4 (08:22→21:25)
[2018-01-18] MEDS: FLUOXETINE HCL 20 MG CAPSULE PO SCH (08:22)
[2018-01-18 08:25] LABS: ABSOLUTE BASOPHILS # (AUTO) 0.1 10^3/uL (0.0-0.2); ABSOLUTE LYMPHOCYTES (AUTO) 1.9 10^3/uL (0.5-4.7); ABSOLUTE MONOCYTES (AUTO) 0.6 10^3/uL (0.1-1.4); ABSOLUTE NEUT (AUTO) 11.4 10^3/uL (1.7-8.2); BASOPHILS % (AUTO) 0.7 % (0-2); EOSINOPHILS % (AUTO) 0.1 % (0-6); HEMATOCRIT 38.2 % (36.0-47.0); HEMOGLOBIN 12.9 g/dL (12.0-15.5); LYMPHOCYTES % (AUTO) 13.3 % (13-45); MEAN CORPUSCULAR HEMOGLOBIN 29.3 pg (27.0-33.4); MEAN CORPUSCULAR HGB CONC 33.7 g/dL (32.0-36.0); MEAN CORPUSCULAR VOLUME 87 fl (80-97); MONOCYTES % (AUTO) 4.2 % (3-13); PLATELET COUNT 290 10^3/uL (150-450); RED BLOOD COUNT 4.38 10^6/uL (3.72-5.28); RED CELL DISTRIBUTION WIDTH 13.6 % (11.5-14.0); SEGMENTED NEUTROPHILS % (AUTO) 81.7 % (42-78); TOTAL CELLS COUNTED % (AUTO) 100 %; WHITE BLOOD COUNT 13.9 10^3/uL (4.0-10.5)
[2018-01-18] MEDS: INSULIN LISPRO 100 UNIT/ML 3 ML VIAL SUBCUT PRN ×3 (08:28→23:14)
[2018-01-18] MEDS: LISINOPRIL 10 MG TABLET PO SCH (09:57)
[2018-01-18] MEDS: HYDROCHLOROTHIAZIDE 25 MG TABLET PO SCH (09:58)
[2018-01-18] MEDS: ENOXAPARIN SODIUM INJ 40 MG/0.4 ML DISP.SYRIN SUBCUT SCH (09:58)
[2018-01-18] MEDS: AMLODIPINE BESYLATE 10 MG TABLET PO SCH (09:59)
[2018-01-18] MEDS ORDERED: (PENDING PHARMACY ID) (Lisinopril [Prinivil] 20 MG) PO SCH (10:00)
[2018-01-18] MEDS ORDERED: CLONIDINE 0.2 MG/24 HR PATCH.TDWK TD SCH (10:00)
[2018-01-18] MEDS ORDERED: MORPHINE SULFATE 10 MG/ML INJ IV ONE (14:30)
[2018-01-18] MEDS ORDERED: MAG HYDROX/AL HYDROX/SIMETH SUSP 30 ML UDCUP PO PRN (17:00)
[2018-01-18] MEDS ORDERED: LIDOCAINE 2% VISCOUS SOLN 20 ML UDCUP PO PRN (17:00)
--- NOTE | 2018-01-18 17:28 | PDOC PROGRESS REPORT ---
<ELANA VOGT Deni - Last Filed: 01/18/18 17:23> Subjective Progress Note for:: 01/18/18 Subjective:: 42 y.o. F admitted for HYPERglycemia. Patient is well known to [facility], and is frequently admitted for non-compliance with diabetes medication and/or gastroparesis. The patient was seen this morning on rounds, she is sitting up on the side of the bed. She is awake, alert and oriented 3. The patient states she is experiencing upper abdominal pain. She denies nausea, vomiting or diarrhea. Upon assessment, her abdomen is soft, nontender/distended. (+) BS. The patient states that her pain 'is deep inside' her abdomen and is not reproducible with palpation. Remainder physical exam is completely benign -lungs clear to auscultation, S1-S2, palpable pulses in upper and lower extremities, mucous membranes are pink and moist. At this time, the patient does not require additional radiological imaging. Abdominal XRAY from admission is normal. Patient has been to the ER multiple times this year for abdominal pain, most recently had a normal US in November 2017. Her reported pain is out of proportion to her otherwise normal physical exam. Plan to treat her pain with low dose IV morphine and PRN maalox/viscous lidocaine. Unfortunately, the patient states she is allergic to reglan, which is the recommended treatment for gastroparesis. Reason For Visit: HYPERGLYCEMIA,DEHYDRATION,HYPERKALEMIA Physical Exam Vital Signs: Temp Pulse Resp BP Pulse Ox 98.3 F 100 18 171/94 H 100 01/18/18 16:00 01/18/18 16:00 01/18/18 16:00 01/18/18 16:00 01/18/18 16:00 Intake & Output 01/17/18 01/18/18 01/19/18 06:59 06:59 06:59 Intake Total 1000 1763 1000 Balance 1000 1763 1000 Weight 57.2 kg 57.2 kg General appearance: PRESENT: no acute distress, well-developed, well-nourished Head exam: PRESENT: atraumatic, normocephalic Eye exam: PRESENT: conjunctiva pink, EOMI, PERRLA. ABSENT: scleral icterus Ear exam: PRESENT: normal external ear exam Mouth exam: PRESENT: moist, tongue midline Neck exam: ABSENT: carotid bruit, JVD, lymphadenopathy, thyromegaly Respiratory exam: PRESENT: clear to auscultation bernardo. ABSENT: rales, rhonchi, wheezes Cardiovascular exam: PRESENT: RRR. ABSENT: diastolic murmur, rubs, systolic murmur Pulses: PRESENT: normal dorsalis pedis pul Vascular exam: PRESENT: normal capillary refill GI/Abdominal exam: PRESENT: normal bowel sounds, soft. ABSENT: ascites, distended, mass, organolmegaly, tenderness Rectal exam: PRESENT: deferred Extremities exam: PRESENT: full ROM. ABSENT: calf tenderness, clubbing, pedal edema Neurological exam: PRESENT: alert, awake, oriented to person, oriented to place , oriented to time, oriented to situation Psychiatric exam: PRESENT: appropriate affect, normal mood Skin exam: PRESENT: dry, intact, warm Results Laboratory Results: 01/18/18 07:44 01/18/18 07:44 01/17/18 01/18/18 01/18/18 16:10 07:44 07:44 WBC 13.9 H RBC 4.38 Hgb 12.9 Hct 38.2 MCV 87 MCH 29.3 MCHC 33.7 RDW 13.6 Plt Count 290 Seg Neutrophils % 81.7 H Lymphocytes % 13.3 Monocytes % 4.2 Eosinophils % 0.1 Basophils % 0.7 Absolute Neutrophils 11.4 H Absolute Lymphocytes 1.9 Absolute Monocytes 0.6 Absolute Eosinophils 0.0 Absolute Basophils 0.1 Sodium 142.2 137.3 Potassium 4.8 5.4 H Chloride 104 103 Carbon Dioxide 23 16 L Anion Gap 15 18 BUN 16 16 Creatinine 1.14 1.17 Est GFR ( Amer) > 60 > 60 Est GFR (Non-Af Amer) 53 L 51 L Glucose 212 H 219 H Calcium 10.1 9.7 Phosphorus 3.0 Magnesium 1.8 Impressions: Abdomen X-Ray 01/17/18 02:07 IMPRESSION: Nonspecific and nonobstructive bowel gas pattern. No acute abnormalities are identified. Status: Imported from PACS Assessment & Plan - Diagnosis (1) Gastroparesis Is this a current diagnosis for this admission?: Yes Plan: Patient has long history of gastroparesis stemming from uncontrolled diabetes No witnessed vomiting while inpatient Zofran PRN for nausea Allergic to Reglan (2) Abdominal pain QualifierTitle: Abdominal location: generalized Qualified Code(s): R10.84 - Generalized abdominal pain Is this a current diagnosis for this admission?: Yes Plan: Patient reports upper abdominal pain No TTP, abdominal exam is completely benign Recent abdominal xray and US benign, no plans for further imaging IV morphine for abdominal pain GI cocktail PRN for reflux/esophageal discomfort (3) Diabetes QualifierTitle: Diabetes mellitus type: type 1 Diabetes mellitus complication status: with unspecified complications Qualified Code(s): E10.8 - Type 1 diabetes mellitus with unspecified complications Is this a current diagnosis for this admission?: Yes Plan: Noncompliant diabetic states she did not take her insulin for approximately 24- 48 hours prior to arrival because she 'was not feeling well' Initial BG 550 Urine glucose>500, (+) urine ketones No evidence of acidosis on laboratory studies Treated with SC insulin Continue to monitor daily chemistries Requested educator senior clinical to meet with patient (4) Hyperglycemia Is this a current diagnosis for this admission?: Yes Plan: Plan as above (5) Hypertension QualifierTitle: Hypertension type: essential hypertension Qualified Code( s): I10 - Essential (primary) hypertension Is this a current diagnosis for this admission?: Yes Plan: Patient endorses history of HTN Resume home dose metoprolol, lisinopril, Norvasc and clonidine patch Hydralazine IV as needed SBP>170 Metoprolol IV as needed SBP>170 or HR>120 - Time Time Spent with patient: 15-24 minutes Medications reviewed and adjusted accordingly: Yes Anticipated discharge: Home - Inpatient Certification Based on my medical assessment, after consideration of the patient's comorbidities, presenting symptoms, or acuity I expect that the services needed warrant INPATIENT care.: Yes I certify that my determination is in accordance with my understanding of Medicare's requirements for reasonable and necessary INPATIENT services [42 CFR 412.3e].: Yes Medical Necessity: Risk of Complication if Not Cared For in Hospital - Plan Summary Plan Summary: MONITOR CHEMISTRIES. IV MORPHINE FOR PAIN CONTROL. ZOFRAN FOR NAUSEA. <KATHE GUAJARDO M - Last Filed: 01/28/18 18:47> Subjective Reason For Visit: HYPERGLYCEMIA,DEHYDRATION,HYPERKALEMIA Physical Exam Vital Signs: Temp Pulse Resp BP Pulse Ox 98.3 F 86 18 171/94 H 100 01/19/18 16:27 01/19/18 16:27 01/19/18 16:27 01/19/18 16:27 01/19/18 16:27 Results Laboratory Results: 01/19/18 03:54 01/19/18 03:54 Impressions: Abdomen X-Ray 01/17/18 02:07 IMPRESSION: Nonspecific and nonobstructive bowel gas pattern. No acute abnormalities are identified. Provider Note Provider Note: I have discussed this patient with KAYCE Vogt. I am in agreement with her evaluation and plan.
[2018-01-19] MEDS: ONDANSETRON HCL INJ/PF 4 MG/2 ML SDV IV PRN (01:10)
[2018-01-19] MEDS: MORPHINE SULFATE 10 MG/ML INJ IV PRN ×3 (04:06→14:31)
[2018-01-19 05:08] LABS: HEMATOCRIT 42.6 % (36.0-47.0); HEMOGLOBIN 14.5 g/dL (12.0-15.5); MEAN CORPUSCULAR HEMOGLOBIN 29.3 pg (27.0-33.4); MEAN CORPUSCULAR HGB CONC 34.1 g/dL (32.0-36.0); MEAN CORPUSCULAR VOLUME 86 fl (80-97); PLATELET COUNT 359 10^3/uL (150-450); RED BLOOD COUNT 4.96 10^6/uL (3.72-5.28); RED CELL DISTRIBUTION WIDTH 13.5 % (11.5-14.0); WHITE BLOOD COUNT 14.5 10^3/uL (4.0-10.5)
[2018-01-19 05:48] LABS: BLOOD UREA NITROGEN 19 mg/dL (7-20); CALCIUM 10.4 mg/dL (8.4-10.2); GLUCOSE 177 mg/dL (75-110); PHOSPHORUS 4.1 mg/dL (2.5-4.5); POTASSIUM 4.7 mmol/L (3.6-5.0)
[2018-01-19 05:54] LABS: ANION GAP 19 (5-19); CARBON DIOXIDE 20 mmol/L (22-30); CHLORIDE 95 mmol/L (98-107); SODIUM 133.9 mmol/L (137-145)
[2018-01-19] MEDS: LANSOPRAZOLE 30 MG TAB.RAP.DR PO SCH ×2 (06:00→16:10)
[2018-01-19] MEDS ORDERED: NORMAL SALINE 1000 ML 1,000 ML IV ONE (07:40)
[2018-01-19] MEDS: SUCRALFATE 1 GM TABLET PO SCH ×3 (09:15→16:10)
[2018-01-19] MEDS: HYDROCHLOROTHIAZIDE 25 MG TABLET PO SCH (09:17)
[2018-01-19] MEDS: METOPROLOL TARTRATE 25 MG TABLET PO SCH (09:17)
[2018-01-19] MEDS: FLUOXETINE HCL 20 MG CAPSULE PO SCH (09:17)
[2018-01-19] MEDS: AMLODIPINE BESYLATE 10 MG TABLET PO SCH (09:17)
[2018-01-19] MEDS: ENOXAPARIN SODIUM INJ 40 MG/0.4 ML DISP.SYRIN SUBCUT SCH (09:19)
[2018-01-19] MEDS: LISINOPRIL 10 MG TABLET PO SCH (09:25)
[2018-01-19] MEDS: INSULIN GLARGINE,HUM.REC.ANLOG 300 UNIT/3 ML INSULN.PEN SUBCUT SCH (09:38)
[2018-01-19] MEDS: INSULIN LISPRO 100 UNIT/ML 3 ML VIAL SUBCUT PRN (14:41)
[2018-01-19 16:32] VITALS: BP 171/94
--- NOTE | 2018-01-26 11:17 | PDOC DISCHARGE SUMMARY ---
<ELANA URENA - Last Filed: 01/26/18 11:13> General - Admit/Disc Date/PCP Admission Date/Primary Care Provider: 01/17/18 04:06 GLEN MCGRATH PA-C Discharge Date: 01/19/18 - Discharge Diagnosis (1) Gastroparesis Is this a current diagnosis for this admission?: Yes (2) Abdominal pain Is this a current diagnosis for this admission?: Yes (3) Diabetes Is this a current diagnosis for this admission?: Yes (4) Hyperglycemia Is this a current diagnosis for this admission?: Yes (5) Hypertension Is this a current diagnosis for this admission?: Yes - Additional Information Discharge Diet: As Tolerated Discharge Activity: Activity As Tolerated Home Medications: Amlodipine Besylate [Norvasc 10 mg Tablet] 10 mg PO DAILY 01/17/18 Clonidine [Catapres-Tts 2] 1 patch TD FR@1000 01/17/18 Dexlansoprazole [Dexilant 60 mg Capsule] 60 mg PO DAILY 01/17/18 Empagliflozin [Jardiance] 10 mg PO QAM 01/17/18 Fluoxetine HCl [Prozac] 40 mg PO QAM 01/17/18 Hydrochlorothiazide [Hydrodiuril 25 mg Tablet] 25 mg PO DAILY 01/17/18 Hydroxyzine HCl [Atarax 10 mg Tablet] 10 mg PO Q8HP PRN 01/17/18 Insulin Aspart [Novolog Flexpen] 0 unit SUBCUT .SLD SCALE 01/17/18 Insulin Glargine,Hum.rec.anlog [Lantus Solostar] 20 unit SQ QAM 01/17/18 Lisinopril [Prinivil] 20 mg PO DAILY 01/17/18 Metoprolol Tartrate [Lopressor 25 mg Tablet] 12.5 mg PO Q12 01/17/18 Sucralfate [Carafate 1 gm Tablet] 1 gm PO ACHS 01/17/18 Clonidine [Catapres-Tts 2 (0.2 mg/24 Hr) Transderm Ptch] 1 each TD Sa@10 patch.tdwk 01/19/18 Erythromycin Base [Erythrocin Base 250 Mg Tablet] 250 mg PO TID #21 tablet 01/21 Promethazine HCl [Phenergan 25 mg Tablet] 25 mg PO Q6H PRN #20 tablet 01/21/18 History of Present Illness History of Present Illness: PER DR. KEARNEY: RUTH CA is a 42 year old female presenting to the emergency department secondary to abdominal pain. States abdominal pain has been present for the past 1 day, described as a dull achy sensation that is constant in nature located diffusely in her abdomen. States she also vomited 5 times the past 24 hours, no blood noted in vomit. States vomiting does provide some relief of her abdominal pain but is short lasting and abdominal pain returns. Never had pain like this before. Currently pain is rated 3 out of 10. States she was in the ER earlier, discharged home in with worsening of abdominal pain and vomiting patient decided to return to the ER for further workup and evaluation. Hospital Course Hospital Course: 42 y.o. F admitted for HYPERglycemia. The patient is well known to [facility], 25+ visits to the ED in the last 4-5 years for hyperglycemia and/or gastroparesis. The patient is a noncompliant diabetic, states she did not take her insulin for approximately 24-48 hours prior to arrival because she 'was not feeling well.' Initial BG 550. Urine glucose>500, (+) urine ketones. No evidence of acidosis on laboratory studies. Creatinine elevated to 1.5, likely ARF due to dehydration (baseline creatinine 1.0). Treated with IVF and SC insulin. The patient complained of persistent abdominal pain, likely related to her gastroparesis stemming from her hyperglycemia. The patient did not require additional radiological imaging. Abdominal XRAY from admission was normal. Patient has been to the ER multiple times this year for abdominal pain, most recently had a normal US in November 2017. Her reported pain was out of proportion to her otherwise normal physical exam. She was treated with low dose IV morphine and PRN maalox/viscous lidocaine. Unfortunately, the patient states she is allergic to reglan, which is the recommended treatment for gastroparesis. On hospital day #3 the patient's blood glucose was adequately controlled as was her abdominal pain. She was deemed safe for discharge. The patient stated she had plenty of insulin at home, as well as a glucometer, test strips and lancets. Extensive teaching was provided regarding the importance of blood glucose control. The patient stated understanding. For further information regarding this patient's hospitalization, please refer to the EMR. Physical Exam Vital Signs: Temp Pulse Resp BP Pulse Ox 98.3 F 86 18 171/94 H 100 01/19/18 16:27 01/19/18 16:27 01/19/18 16:27 01/19/18 16:27 01/19/18 16:27 Results Laboratory Results: 01/19/18 03:54 01/19/18 03:54 Impressions: Abdomen X-Ray 01/17/18 02:07 IMPRESSION: Nonspecific and nonobstructive bowel gas pattern. No acute abnormalities are identified. Status: Imported from PACS Qualifiers - * PATIENT BEING DISCHARGED WITH ANY OF THE FOLLOWING DIAGNOSIS: No Plan Discharge Plan: DISCHARGE HOME. TAKE INSULIN DIRECTED. Time Spent: Less than 30 Minutes <KATHE GUAJARDO - Last Filed: 01/28/18 18:48> General - Admit/Disc Date/PCP Admission Date/Primary Care Provider: 01/17/18 04:06 GLEN MCGRATH PA-C History of Present Illness History of Present Illness: RUTH CA is a 42 year old female Physical Exam Vital Signs: Temp Pulse Resp BP Pulse Ox 98.3 F 86 18 171/94 H 100 01/19/18 16:27 01/19/18 16:27 01/19/18 16:27 01/19/18 16:27 01/19/18 16:27 Results Laboratory Results: 01/19/18 03:54 01/19/18 03:54 Impressions: Abdomen X-Ray 01/17/18 02:07 IMPRESSION: Nonspecific and nonobstructive bowel gas pattern. No acute abnormalities are identified. Provider Note Provider Note: I have discussed this patient with KAYCE Urena. I am in agreement with her evaluation and care.
== END 2018-01-19 17:24 | disposition home or self-care (01) | DRG 74 ==
LOC: ER 22:30 → EH 01-17 04:06 → 5 01-17 15:02
PROVIDERS: ADMIT Family Medicine; ATTEND Family Medicine
DX: E11.43 Type 2 diabetes mellitus with diabetic autonomic (poly)neuropathy (principal); N17.9 Acute kidney failure, unspecified; E86.0 Dehydration; E87.5 Hyperkalemia; E11.65 Type 2 diabetes mellitus with hyperglycemia; K31.84 Gastroparesis; I10 Essential (primary) hypertension; E78.00 Pure hypercholesterolemia, unspecified; K21.9 Gastro-esophageal reflux disease without esophagitis; M19.049 Primary osteoarthritis, unspecified hand; L30.9 Dermatitis, unspecified; F31.9 Bipolar disorder, unspecified; D64.9 Anemia, unspecified; F41.9 Anxiety disorder, unspecified; Z79.4 Long term (current) use of insulin; Z79.899 Other long term (current) drug therapy; Z91.14 Patient's other noncompliance with medication regimen; Z88.8 Allergy status to other drugs, medicaments and biological substances; Z86.14 Personal history of Methicillin resistant Staphylococcus aureus infection; Z90.49 Acquired absence of other specified parts of digestive tract; Z83.3 Family history of diabetes mellitus; Z82.49 Family history of ischemic heart disease and other diseases of the circulatory system
CPT/HCPCS: 36415; 74019; 80048; 80053; 80076; 80307; 81001; 82010; 82803; 82962; 83690; 83735; 84100; 84703; 85025; 85027; 87086; 93005; 93010; 96361; 96372; 96374; 96375; 96376; 99284; 99285; J0360; J0500; J0610; J0780; J1200; J1630; J1650; J1815; J2270; J2405; J3010; J3490; J7030; J7120

== ENCOUNTER 2018-01-21 01:19 | Emergency (ER) | payer MEDICARE, MEDICAID ==
--- NOTE | 2018-01-21 01:48 | ER Document Report ---
ED Medical Screen (RME) - General Chief Complaint: Abdominal Pain Stated Complaint: ABDOMINAL PAIN Time Seen by Provider: 01/21/18 01:41 Mode of Arrival: Ambulatory Information source: Patient Notes: 42-year-old female presents to ED for complaint of severe abdominal pain. She and the friend with her states that she just got out of the house Saturday and does not understand why she was discharged. She states that the pain was like this morning but is gotten much worse as the days progressed. Patient states the pain is severe at this time and she just needs something for her pain. Abdomen is soft and bowel sounds are present all 4 quadrants. Patient states the pain is worse in the epigastric area. I have greeted and performed a rapid initial assessment of this patient. A comprehensive ED assessment and evaluation of the patient, analysis of test results and completion of medical decision making process will be conducted by an additional ED providers. TRAVEL OUTSIDE OF THE [place] IN LAST 30 DAYS: No - Related Data Allergies/Adverse Reactions: metoclopramide HCl [From Reglan] Allergy (Unknown, Verified 01/16/18 04:19) Past Medical History - Social History Family history: DM, Hypertension - Past Medical History Cardiac Medical History: Reports: Hx Hypercholesterolemia, Hx Hypertension Endocrine Medical History: Reports: Hx Diabetes Mellitus Type 1, Hx Diabetes Mellitus Type 2 Renal/ Medical History: Reports: Hx Renal Insufficiency. Denies: Hx Peritoneal Dialysis GI Medical History: Reports: Hx Gastroesophageal Reflux Disease Musculoskeltal Medical History: Reports Hx Arthritis - Hand Skin Medical History: Reports Hx Eczema Psychiatric Medical History: Reports: Hx Anxiety, Hx Bipolar Disorder, Hx Depression Infectious Medical History: Reports: Hx MRSA Past Surgical History: Reports: Hx Cholecystectomy - Immunizations Immunizations up to date: Yes Hx Diphtheria, Pertussis, Tetanus Vaccination: Yes - unknown History of Influenza Vaccine for 02/2017 - 07/2017 Season: No Doctor's Discharge - Discharge Referrals: GLEN MCGRATH PA-C [Primary Care Provider] - Follow up as needed
[2018-01-21] MEDS ORDERED: NORMAL SALINE 1000 ML 1,000 ML IV ONE ×3 (04:12→06:55)
[2018-01-21] MEDS ORDERED: PROMETHAZINE HCL INJ 25 MG/1 ML VIAL IM ONE ×3 (04:12→06:21)
--- NOTE | 2018-01-21 04:13 | ER Document Report ---
ED GI/ - General Chief Complaint: Abdominal Pain Stated Complaint: ABDOMINAL PAIN Time Seen by Provider: 01/21/18 01:41 Mode of Arrival: Ambulatory Notes: Patient is a 42-year-old female with a history of insulin-dependent diabetes, gastroparesis, chronic abdominal pain, that comes to emergency department for chief complaint of upper abdominal pain. She denies vomiting, states she has not vomited in several days, she states that she was sent home from the hospital after being admitted for vomiting, abdominal pain, abnormal blood chemistry but she states that she has not felt any better since she went home. She denies fever or chills, reports normal bowel movements. She has had a cholecystectomy. Only other reported medical history is hypertension. She states she has been taking her insulin. TRAVEL OUTSIDE OF THE [place] IN LAST 30 DAYS: No - Related Data Allergies/Adverse Reactions: metoclopramide HCl [From Ici Montreuil] Allergy (Unknown, Verified 01/16/18 04:19) Past Medical History - General Information source: Patient - Social History Smoking Status: Never Smoker Drug Abuse: None Lives with: Family Family History: None, DM, Hypertension - Past Medical History Cardiac Medical History: Reports: Hx Hypercholesterolemia, Hx Hypertension Endocrine Medical History: Reports: Hx Diabetes Mellitus Type 1 Renal/ Medical History: Reports: Hx Renal Insufficiency. Denies: Hx Peritoneal Dialysis GI Medical History: Reports: Hx Gastroesophageal Reflux Disease Musculoskeletal Medical History: Reports Hx Arthritis - Hand Skin Medical History: Reports Hx Eczema Psychiatric Medical History: Reports: Hx Anxiety, Hx Bipolar Disorder, Hx Depression Infectious Medical History: Reports: Hx MRSA Past Surgical History: Reports: Hx Cholecystectomy - Immunizations Immunizations up to date: Yes Hx Diphtheria, Pertussis, Tetanus Vaccination: Yes - unknown Hx Pneumococcal Vaccination: 05/04/10 Review of Systems - Review of Systems Constitutional: No symptoms reported EENT: No symptoms reported Cardiovascular: No symptoms reported Respiratory: No symptoms reported Gastrointestinal: See HPI Genitourinary: No symptoms reported Female Genitourinary: No symptoms reported Musculoskeletal: No symptoms reported Skin: No symptoms reported Hematologic/Lymphatic: No symptoms reported Neurological/Psychological: No symptoms reported Physical Exam - Notes Notes: GENERAL: Crying and writhing around on the bed HEAD: Normocephalic, atraumatic. EYES: Pupils equal, round, and reactive to light. Extraocular movements intact. ENT: Oral mucosa moist, tongue midline. [Nares patent, no nasal septal hematoma , TM's intact.] NECK: Full range of motion. Supple. Trachea midline. LUNGS: Clear to auscultation bilaterally, no wheezes, rales, or rhonchi. No respiratory distress. HEART: Borderline tachycardic, regular rate and rhythm, no murmur ABDOMEN: Abdomen is actually nontender, no guarding, no rigidity, benign exam. Non-distended. Bowel sounds present in all 4 quadrants. EXTREMITIES: Moves all 4 extremities spontaneously. No edema, normal radial and dorsalis pedis pulses bilaterally. No cyanosis. BACK: no cervical, thoracic, lumbar midline tenderness. No saddle anesthesia, normal distal neurovascular exam. NEUROLOGICAL: Alert and oriented x3. Normal speech. [cranial nerves II through XII grossly intact]. PSYCH: Moaning and asking for medication SKIN: Warm, dry, normal turgor. No rashes or lesions noted. Course - Re-evaluation Re-evalutation: Patient writhing around on the bed, hyperventilating, asking for medication. She is tachycardic, not hypotensive, no fever. Abdomen is actually quite unremarkable and soft, no rigidity or guarding. Patient is not vomiting. CBC unremarkable. Chemistry shows slightly low bicarbonate, however anion gap is normal, venous blood gas was checked and shows alkalosis. No DKA. Hypoglycemia is mild, given insulin. Giving IV fluids. Urinalysis shows blood but patient states she is currently on her menstrual cycle, this is similar to her previous urinalysis, unremarkable. EKG does not show QT prolongation, patient given Haldol. This did work, tachycardia almost resolved, patient resting quietly, however when I went in to discuss with patient her results, options for medications at home for control, and gastroenterology follow-up patient started writhing around again and stating that she needed something for the pain. Explained to her that she would not be receiving narcotics, she states she will take anything. Offered Phenergan IM, she agrees with this. Tachycardia resolved. 01/21/18 07:25 Entered the room and patient is on the phone, when she sees me under she starts crying and yelling, became tachycardic, states that she needs pain medicine because it helps right now, I informed her that we already agreed that she would not be receiving any narcotic pain medication, I asked her if I can help her in any other way, she states that she needs pain medicine to be helped. Instructed her to follow up with gastroenterology, providing with prescriptions , instructed her to return if she develops vomiting, fever, or any other concerning symptoms. - Laboratory Result Diagrams: 01/21/18 04:21 01/21/18 04:21 Laboratory results interpreted by me: 01/21/18 01/21/18 01/21/18 04:21 04:21 04:21 VBG pH 7.55 H VBG pCO2 25.0 L Sodium 134.1 L Chloride 97 L Carbon Dioxide 19 L BUN 25 H Creatinine 1.26 H Est GFR ( Amer) 57 L Est GFR (Non-Af Amer) 47 L Glucose 339 H POC Glucose Calcium 10.5 H Total Protein 8.3 H Urine Glucose (UA) >=500 H Urine Ketones TRACE H Urine Blood LARGE H Ur Leukocyte Esterase SMALL H 01/21/18 04:54 VBG pH VBG pCO2 Sodium Chloride Carbon Dioxide BUN Creatinine Est GFR ( Amer) Est GFR (Non-Af Amer) Glucose POC Glucose 299 H Calcium Total Protein Urine Glucose (UA) Urine Ketones Urine Blood Ur Leukocyte Esterase Discharge - Discharge Clinical Impression: Upper abdominal pain, Gastroparesis, Chronic abdominal pain Condition: Stable Disposition: HOME, SELF-CARE Additional Instructions: Take medications as prescribed if needed for abdominal pain, nausea, cramping. Follow-up closely with gastroenterology for additional evaluation and management , see referral. Return if you worsen including vomiting, fever, or any other concerning or worsening symptoms. Prescriptions: Erythromycin Base [Erythrocin Base 250 Mg Tablet] 250 mg PO TID #21 tablet Promethazine HCl [Phenergan 25 mg Tablet] 25 mg PO Q6H PRN #20 tablet PRN Reason: Referrals: GLEN MCGRATH PA-C [Primary Care Provider] - Follow up as needed
[2018-01-21] MEDS ORDERED: HALOPERIDOL LACTATE INJ 5 MG/1 ML VIAL IV ONE (04:33)
[2018-01-21 04:39] LABS: ABSOLUTE BASOPHILS # (AUTO) 0.1 10^3/uL (0.0-0.2); ABSOLUTE LYMPHOCYTES (AUTO) 2.3 10^3/uL (0.5-4.7); BASOPHILS % (AUTO) 0.5 % (0-2); EOSINOPHILS % (AUTO) 0.2 % (0-6); HEMATOCRIT 40.3 % (36.0-47.0); HEMOGLOBIN 13.9 g/dL (12.0-15.5); LYMPHOCYTES % (AUTO) 22.4 % (13-45); MEAN CORPUSCULAR HEMOGLOBIN 29.4 pg (27.0-33.4); MEAN CORPUSCULAR HGB CONC 34.5 g/dL (32.0-36.0); MEAN CORPUSCULAR VOLUME 85 fl (80-97); MONOCYTES % (AUTO) 9.5 % (3-13); PLATELET COUNT 389 10^3/uL (150-450); RED BLOOD COUNT 4.73 10^6/uL (3.72-5.28); RED CELL DISTRIBUTION WIDTH 13.1 % (11.5-14.0); SEGMENTED NEUTROPHILS % (AUTO) 67.4 % (42-78); TOTAL CELLS COUNTED % (AUTO) 100 %; VENOUS BLOOD BASE EXCESS 0.6 mmol/L; VENOUS BLOOD HCO3 21.3 mmol/L (20-32); VENOUS BLOOD PH 7.55 (7.30-7.42); WHITE BLOOD COUNT 10.4 10^3/uL (4.0-10.5)
[2018-01-21 04:58] LABS: ALANINE AMINOTRANSFERASE 23 U/L (9-52); ALBUMIN 4.6 g/dL (3.5-5.0); ALKALINE PHOSPHATASE 92 U/L (38-126); ASPARTATE AMINO TRANSFERASE 25 U/L (14-36); BILIRUBIN,DIRECT 0.3 mg/dL (0.0-0.4); BILIRUBIN,TOTAL 0.4 mg/dL (0.2-1.3); BLOOD UREA NITROGEN 25 mg/dL (7-20); CALCIUM 10.5 mg/dL (8.4-10.2); GLUCOSE 339 mg/dL (75-110); POTASSIUM 4.4 mmol/L (3.6-5.0); TOTAL PROTEIN 8.3 g/dL (6.3-8.2)
[2018-01-21 05:04] LABS: ANION GAP 18 (5-19); CARBON DIOXIDE 19 mmol/L (22-30); CHLORIDE 97 mmol/L (98-107); SODIUM 134.1 mmol/L (137-145)
[2018-01-21 05:13] LABS: APPEARANCE,URINE CLEAR; BILIRUBIN,URINE NEGATIVE (NEGATIVE); COLOR,URINE STRAW; GLUCOSE, URINE >=500 mg/dL (NEGATIVE); KETONES,URINE TRACE mg/dL (NEGATIVE); LEUKOCYTE ESTERASE,URINE SMALL (NEGATIVE); NITRITE,URINE NEGATIVE (NEGATIVE); PROTEIN,URINE NEGATIVE (NEGATIVE); URINE SPECIFIC GRAVITY 1.027; UROBILINOGEN,URINE NEGATIVE mg/dL (<2.0)
[2018-01-21] MEDS ORDERED: INSULIN REG, HUMAN 100 UNIT/ML 3 ML VIAL (PYX) SUBCUT ONE (05:24)
[2018-01-21] MEDS ORDERED: DIPHENHYDRAMINE HCL 50 MG/ML VIAL IV ONE (06:21)
--- NOTE | 2018-01-21 07:40 | EKG REPORT ---
SEVERITY:- ABNORMAL ECG - SINUS TACHYCARDIA BORDERLINE R WAVE PROGRESSION, ANTERIOR LEADS NONSPECIFIC T ABNORMALITIES, INFERIOR LEADS : Confirmed by: Eduardo Novak MD 21-Jan-2018 07:39:36
[2018-01-21 07:46] VITALS: BP 189/92
== END 2018-01-21 07:46 | disposition home or self-care (01) ==
LOC: ER 01:19
DX: E10.43 Type 1 diabetes mellitus with diabetic autonomic (poly)neuropathy (principal); K31.84 Gastroparesis; E10.649 Type 1 diabetes mellitus with hypoglycemia without coma; E87.3 Alkalosis; R10.10 Upper abdominal pain, unspecified; G89.29 Other chronic pain; R06.4 Hyperventilation; R00.0 Tachycardia, unspecified; I10 Essential (primary) hypertension; Z90.49 Acquired absence of other specified parts of digestive tract; Z88.8 Allergy status to other drugs, medicaments and biological substances; Z87.19 Personal history of other diseases of the digestive system
CPT/HCPCS: 93005; 99284; 96372; 96361; 96374; 96375; 36415; 82962; 85025; 80053; 81001; 82803; 93010; J1200; J1630; A9270; J2550; J7030; J1815

== ENCOUNTER 2018-02-05 07:47 | Emergency (ER) | payer MEDICARE, MEDICAID ==
[2018-02-05] MEDS ORDERED: MAG HYDROX/AL HYDROX/SIMETH SUSP 30 ML UDCUP PO ONE (09:07)
[2018-02-05] MEDS ORDERED: NORMAL SALINE 1000 ML 1,000 ML IV ONE ×2 (09:07→10:21)
[2018-02-05] MEDS ORDERED: LIDOCAINE 2% VISCOUS SOLN 20 ML UDCUP PO ONE (09:07)
--- NOTE | 2018-02-05 09:13 | ER Document Report ---
ED General - General Chief Complaint: Abdominal Pain Stated Complaint: ABDOMINAL PAIN Time Seen by Provider: 02/05/18 09:03 TRAVEL OUTSIDE OF THE [place] IN LAST 30 DAYS: No - HPI Notes: Patient is a 42-year-old female with a history of insulin-dependent diabetes, gastroparesis, chronic abdominal pain and is very well-known to this emergency department who presents to the ED complaining of the same symptoms as her most recent visit with upper abdominal discomfort. Patient states that the pain feels like cramping and is intermittent. Patient states that she has not had any nausea, vomiting, diarrhea. No melena or hematochezia. Patient states that the pain does not radiate. Patient has had a cholecystectomy. Denies any headache, fever, URI, sore throat, chest pain, palpitations, syncope, cough, shortness of breath, wheeze, dyspnea, nausea/vomiting/diarrhea, urinary retention, dysuria, hematuria, back pain, loss of control of bowel or bladder, numbness/tingling, muscle paralysis/weakness, or rash. - Related Data Allergies/Adverse Reactions: metoclopramide HCl [From Reglan] Allergy (Unknown, Verified 02/05/18 07:48) Past Medical History - Social History Smoking Status: Unknown if Ever Smoked Family History: None, DM, Hypertension - Past Medical History Cardiac Medical History: Reports: Hx Hypercholesterolemia, Hx Hypertension Endocrine Medical History: Reports: Hx Diabetes Mellitus Type 1, Hx Diabetes Mellitus Type 2 Renal/ Medical History: Reports: Hx Renal Insufficiency. Denies: Hx Peritoneal Dialysis GI Medical History: Reports: Hx Gastroesophageal Reflux Disease Musculoskeletal Medical History: Reports Hx Arthritis - Hand Skin Medical History: Reports Hx Eczema Psychiatric Medical History: Reports: Hx Anxiety, Hx Bipolar Disorder, Hx Depression Infectious Medical History: Reports: Hx MRSA Past Surgical History: Reports: Hx Cholecystectomy - Immunizations Immunizations up to date: Yes Hx Diphtheria, Pertussis, Tetanus Vaccination: Yes - unknown Hx Pneumococcal Vaccination: 05/04/10 Review of Systems - Review of Systems -: Yes All other systems reviewed and negative Physical Exam - Vital signs Vitals: Temp Pulse Resp BP Pulse Ox 97.2 F 132 H 22 H 177/115 H 100 02/05/18 07:56 02/05/18 07:56 02/05/18 07:56 02/05/18 07:56 09/12/18 07:56 - Notes Notes: PHYSICAL EXAMINATION: GENERAL: Well-appearing, well-nourished and in no acute distress. HEAD: Atraumatic, normocephalic. EYES: Pupils equal round and reactive to light, extraocular movements intact, sclera anicteric, conjunctiva are normal. ENT: Nares patent and without discharge. oropharynx clear without exudates. No tonsilar hypertrophy or erythema. Moist mucous membranes. NECK: Normal range of motion, supple without lymphadenopathy LUNGS: Breath sounds clear to auscultation bilaterally and equal. No wheezes rales or rhonchi. HEART: Regular rate and rhythm without murmurs, rubs, gallops. ABDOMEN: Soft, nontender, nondistended abdomen. No guarding, no rebound. No masses appreciated. Normal bowel sounds present. No CVA tenderness bilaterally. Musculoskeletal: FROM to passive/active. Strength 5+/5. Extremities: No cyanosis, clubbing, or edema b/l. Peripheral pulses 2+. Capillary refill less than 3 seconds. NEUROLOGICAL: Normal speech, normal gait. PSYCH: Normal mood, normal affect. SKIN: Warm, Dry, normal turgor, no rashes or lesions noted. Course - Re-evaluation Re-evalutation: 02/05/18 09:19 Pt was visualized writhing and wimpering in the bed (similar presentation to last visit). As soon as I started talking to her she was sitting comfortably, not expressing any discomfort. her abd is very soft w/o any rebound or guarding. No sx's of n/v/d. Vitals are acceptable at this time (HR 112 during exam). We will perform a similar work up to previous to compare and assess for any acute changes. Pt requesting narcotics. 02/05/18 13:14 Patient is an afebrile, well-hydrated 42-year-old female who presents to the ED with upper abdominal pain, unspecified. This appears to be acute on chronic. Vitals are acceptable without any significant tachycardia, tachypnea, or hypoxia. PE is otherwise unremarkable. Patient's abdomen is completely nontender and without any rebound or guarding. Patient is able to tolerate p.o. without any difficulties and is nontoxic-appearing. CBC, CMP, lipase, urinalysis, HCG, urine drug screen, VBG was grossly unremarkable for any acute pathology aside from mild hyperglycemia, no acidosis. Her lactic acid was 2.8 initially and fluids were provided. I did review this case with Dr. Genao who recommended recheck of the lactic and if down-trending we can discharge. Lactic repeat wnl at 1.6. pt began asking for dilaudid, which I told her she would not be receiving at this time. Low suspicion/risk for acute appendicitis , bowel obstruction, acute cholecystitis, acute cholangitis, perforated diverticulitis, incarcerated hernia, pancreatitis, perforated ulcer, peritonitis , sepsis, pelvic inflammatory disease, ectopic , tubo-ovarian abscess, ovarian torsion, or other systemic emergent condition at this time. Patient is aware that her condition can change from initial presentation and she needs to monitor symptoms closely and seek medical attention if any acute changes. Rx for zofran. Conservative measures otherwise for symptoms. Recheck with your PCM in 3-5 days, sooner if warranted. Schedule appointment with gastroenterology. Return to the ED with any worsening/concerning symptoms otherwise as reviewed in discharge. Patient is in agreement. - Vital Signs Vital signs: Temp Pulse Resp BP Pulse Ox 97.2 F 115 H 22 H 177/115 H 99 02/05/18 07:56 02/05/18 10:57 02/05/18 07:56 02/05/18 07:56 02/05/18 10:57 - Laboratory Result Diagrams: 02/05/18 09:30 02/05/18 09:30 Laboratory results interpreted by me: 02/05/18 02/05/18 02/05/18 09:30 09:30 10:00 Glucose 225 H Lactic Acid 2.8 H Total Protein 9.2 H Urine Glucose (UA) >=500 H Urine Ketones TRACE H Urine Ascorbic Acid 20 H Discharge - Discharge Clinical Impression: Gastroparesis due to DM Abdominal pain Qualifiers: Abdominal location: upper abdomen, unspecified Qualified Code(s): R10.10 - Upper abdominal pain, unspecified Condition: Stable Disposition: HOME, SELF-CARE Instructions: Abdominal Pain ([facility]), Antinausea Medication ([facility]), Low-Fat Diet ( [facility]) Additional Instructions: Maintain adequate fluid and food intake [place] diet ([employer] Bananas, rice, apples, toast, etc Zofran as needed tylenol if needed Monitor for any worsening symptoms Make sure you are staying hydrated enough to urinate and have normal BM's Recheck with your PCM in 3-5 days Consider consult with Gastroenterology for ongoing/worsening symptoms Return to the ED with any worsening symptoms and/or development of fever, headache, chest pain, palpitations, syncope, shortness of breath, trouble breathing, abdominal pain, n/v/d, blood in stool/urine, weakness, or other worsening symptoms that are concerning to you. Prescriptions: Ondansetron [Zofran Odt 4 mg Tablet] 1 - 2 tab PO Q4H PRN #15 tab.rapdis PRN Reason: For Nausea/Vomiting Forms: Elevated Blood Pressure Referrals: GLEN MCGRATH PA-C [Primary Care Provider] - Follow up in 3-5 days AMILCAR VYAS MD [ACTIVE STAFF] - Follow up as needed
[2018-02-05 09:46] LABS: VENOUS BLOOD HCO3 25.5 mmol/L (20-32); VENOUS BLOOD PCO2 44.7 mmHg (35-63); VENOUS BLOOD PH 7.37 (7.30-7.42)
[2018-02-05 09:49] LABS: ABSOLUTE LYMPHOCYTES (AUTO) 1.9 10^3/uL (0.5-4.7); ABSOLUTE MONOCYTES (AUTO) 0.8 10^3/uL (0.1-1.4); ABSOLUTE NEUT (AUTO) 7.4 10^3/uL (1.7-8.2); BASOPHILS % (AUTO) 0.3 % (0-2); EOSINOPHILS % (AUTO) 0.3 % (0-6); HEMATOCRIT 40.9 % (36.0-47.0); HEMOGLOBIN 13.9 g/dL (12.0-15.5); LYMPHOCYTES % (AUTO) 19.1 % (13-45); MEAN CORPUSCULAR HEMOGLOBIN 29.4 pg (27.0-33.4); MEAN CORPUSCULAR VOLUME 87 fl (80-97); MONOCYTES % (AUTO) 7.5 % (3-13); PLATELET COUNT 348 10^3/uL (150-450); RED BLOOD COUNT 4.73 10^6/uL (3.72-5.28); RED CELL DISTRIBUTION WIDTH 13.3 % (11.5-14.0); SEGMENTED NEUTROPHILS % (AUTO) 72.8 % (42-78); TOTAL CELLS COUNTED % (AUTO) 100 %; WHITE BLOOD COUNT 10.1 10^3/uL (4.0-10.5)
[2018-02-05 10:04] LABS: ALANINE AMINOTRANSFERASE 22 U/L (9-52); ALBUMIN 4.7 g/dL (3.5-5.0); ALKALINE PHOSPHATASE 85 U/L (38-126); ANION GAP 12 (5-19); ASPARTATE AMINO TRANSFERASE 34 U/L (14-36); BILIRUBIN,DIRECT 0.3 mg/dL (0.0-0.4); BILIRUBIN,TOTAL 0.5 mg/dL (0.2-1.3); BLOOD UREA NITROGEN 15 mg/dL (7-20); CARBON DIOXIDE 27 mmol/L (22-30); CHLORIDE 100 mmol/L (98-107); GLUCOSE 225 mg/dL (75-110); LIPASE 133.3 U/L (23-300); POTASSIUM 4.3 mmol/L (3.6-5.0); SODIUM 139.1 mmol/L (137-145); TOTAL PROTEIN 9.2 g/dL (6.3-8.2)
[2018-02-05 10:26] LABS: APPEARANCE,URINE CLEAR; BILIRUBIN,URINE NEGATIVE (NEGATIVE); COLOR,URINE YELLOW; GLUCOSE, URINE >=500 mg/dL (NEGATIVE); KETONES,URINE TRACE mg/dL (NEGATIVE); LEUKOCYTE ESTERASE,URINE NEGATIVE (NEGATIVE); NITRITE,URINE NEGATIVE (NEGATIVE); PROTEIN,URINE NEGATIVE (NEGATIVE); URINE SPECIFIC GRAVITY 1.021; UROBILINOGEN,URINE NEGATIVE mg/dL (<2.0)
[2018-02-05 10:37] LABS: URINE AMPHETAMINES SCREEN NEGATIVE; URINE BARBITURATES SCREEN NEGATIVE; URINE BENZODIAZEPINES SCREEN NEGATIVE; URINE COCAINE SCREEN NEGATIVE; URINE MARIJUANA (THC) SCREEN NEGATIVE; URINE METHADONE SCREEN NEGATIVE; URINE PHENCYCLIDINE SCREEN NEGATIVE
[2018-02-05 13:31] VITALS: BP 188/125
--- NOTE | 2018-02-05 18:27 | EKG REPORT ---
SEVERITY:- BORDERLINE ECG - SINUS TACHYCARDIA BORDERLINE R WAVE PROGRESSION, ANTERIOR LEADS BORDERLINE T ABNORMALITIES, INFERIOR LEADS : Confirmed by: Opal Garcia 05-Feb-2018 18:26:52
== END 2018-02-05 13:33 | disposition home or self-care (01) ==
LOC: ER 07:47
DX: E11.43 Type 2 diabetes mellitus with diabetic autonomic (poly)neuropathy (principal); K31.84 Gastroparesis; R10.10 Upper abdominal pain, unspecified
CPT/HCPCS: 93005; 99284; 36415; 83605; 83690; 85025; 81025; 80053; 81001; 80307; 82803; 93010; J3490

== ENCOUNTER 2018-02-16 03:48 | Inpatient (IN) | payer MEDICARE, MEDICAID ==
[2018-02-16] MEDS ORDERED: NORMAL SALINE 1000 ML 1,000 ML IV ONE ×3 (04:58→07:52)
[2018-02-16] MEDS ORDERED: HALOPERIDOL LACTATE INJ 5 MG/1 ML VIAL IM ONE (04:58)
--- NOTE | 2018-02-16 05:01 | ER Document Report ---
ED Medical Screen (RME) - General Chief Complaint: Abdominal Pain Stated Complaint: ABDOMINAL PAIN Time Seen by Provider: 02/16/18 04:53 Notes: 42-year-old female with a history of diabetes, gastroparesis, chronic abdominal pain, cholecystectomy, medication noncompliance comes to the emergency department for vomiting, abdominal pain, symptoms started yesterday. Denies fever, abnormal bowel movements, hematemesis. Reports she is taking her insulin. Denies any abdominal surgeries otherwise. Nurse triage note states patient believes she has had a bowel obstruction in the past, patient denies this. TRAVEL OUTSIDE OF THE [place] IN LAST 30 DAYS: No - Related Data Allergies/Adverse Reactions: metoclopramide HCl [From Reglan] Allergy (Unknown, Verified 02/05/18 07:48) Past Medical History - Social History Family history: DM, Hypertension - Past Medical History Cardiac Medical History: Reports: Hx Hypercholesterolemia, Hx Hypertension Endocrine Medical History: Reports: Hx Diabetes Mellitus Type 1, Hx Diabetes Mellitus Type 2 Renal/ Medical History: Reports: Hx Renal Insufficiency. Denies: Hx Peritoneal Dialysis GI Medical History: Reports: Hx Gastroesophageal Reflux Disease Musculoskeltal Medical History: Reports Hx Arthritis - Hand Skin Medical History: Reports Hx Eczema Psychiatric Medical History: Reports: Hx Anxiety, Hx Bipolar Disorder, Hx Depression Infectious Medical History: Reports: Hx MRSA Past Surgical History: Reports: Hx Cholecystectomy - Immunizations Immunizations up to date: Yes Hx Diphtheria, Pertussis, Tetanus Vaccination: Yes - unknown History of Influenza Vaccine for 02/2017 - 07/2017 Season: No Physical Exam - Vital signs Vitals: Pulse Resp BP Pulse Ox 139 H 28 H 174/109 H 100 02/16/18 03:54 02/16/18 03:54 02/16/18 03:54 02/16/18 03:54 - General General appearance: Other - Patient rolling around on the floor - Abdominal Tenderness: Tender - Nonspecific abdominal examination without rigidity or guarding Course - Re-evaluation Re-evalutation: Patient helped back into the bed, discussed we would give her IM medication to help her relax to help us perform the workup and you hydrate her, she asks if we are going to give her Haldol, she states that this has helped her in the past. - Vital Signs Vital signs: Temp Pulse Resp BP Pulse Ox 139 H 28 H 174/109 H 100 02/16/18 03:54 02/16/18 03:54 02/16/18 03:54 02/16/18 03:54 Doctor's Discharge - Discharge Referrals: GLEN MCGRATH PA-C [Primary Care Provider] - Follow up as needed
[2018-02-16 05:32] LABS: ABSOLUTE MONOCYTES (AUTO) 0.4 10^3/uL (0.1-1.4); BASOPHILS % (AUTO) 0.2 % (0-2); HEMATOCRIT 35.5 % (36.0-47.0); HEMOGLOBIN 12.1 g/dL (12.0-15.5); LYMPHOCYTES % (AUTO) 5.9 % (13-45); MEAN CORPUSCULAR HEMOGLOBIN 29.3 pg (27.0-33.4); MEAN CORPUSCULAR HGB CONC 34.3 g/dL (32.0-36.0); MEAN CORPUSCULAR VOLUME 86 fl (80-97); MONOCYTES % (AUTO) 2.5 % (3-13); PLATELET COUNT 354 10^3/uL (150-450); RED BLOOD COUNT 4.14 10^6/uL (3.72-5.28); RED CELL DISTRIBUTION WIDTH 13.4 % (11.5-14.0); SEGMENTED NEUTROPHILS % (AUTO) 91.4 % (42-78); TOTAL CELLS COUNTED % (AUTO) 100 %; WHITE BLOOD COUNT 16.4 10^3/uL (4.0-10.5)
[2018-02-16 06:01] LABS: ALANINE AMINOTRANSFERASE 20 U/L (9-52); ALBUMIN 4.7 g/dL (3.5-5.0); ANION GAP 18 (5-19); ASPARTATE AMINO TRANSFERASE 27 U/L (14-36); BILIRUBIN,DIRECT 0.5 mg/dL (0.0-0.4); BILIRUBIN,TOTAL 0.7 mg/dL (0.2-1.3); BLOOD UREA NITROGEN 11 mg/dL (7-20); CALCIUM 10.4 mg/dL (8.4-10.2); CARBON DIOXIDE 16 mmol/L (22-30); CHLORIDE 101 mmol/L (98-107); GLUCOSE 313 mg/dL (75-110); POTASSIUM 4.6 mmol/L (3.6-5.0); SODIUM 134.7 mmol/L (137-145); TOTAL PROTEIN 8.2 g/dL (6.3-8.2)
[2018-02-16] MEDS ORDERED: DIPHENHYDRAMINE HCL 50 MG/ML VIAL IV ONE (06:16)
--- NOTE | 2018-02-16 06:18 | ER Document Report ---
ED GI/ - General Information source: Patient TRAVEL OUTSIDE OF THE [place] IN LAST 30 DAYS: No <SAPPHIRE BEST - Last Filed: 02/16/18 06:21> <TRICIA DIXON - Last Filed: 02/16/18 08:24> - General Chief Complaint: Abdominal Pain Stated Complaint: ABDOMINAL PAIN Time Seen by Provider: 02/16/18 04:53 Notes: Patient is a 42 year old female well known to the emergency department today with diabetes type 1, HTN, hyperlipidemia, GERD, anxiety, bipolar disorder, with a history of gastroparesis and chronic abdominal pain presents to the emergency department complaining of abdominal pain and nausea onset yesterday. Patient was sleeping comfortably upon entry into the room and as the exam progresses patient begins rolling around the bed and moaning which is her typical presentation here. (SAPPHIRE BEST) - Related Data Allergies/Adverse Reactions: metoclopramide HCl [From Reglan] Allergy (Unknown, Verified 02/05/18 07:48) Past Medical History - General Information source: [facility] Records - Social History Smoking Status: Unknown if Ever Smoked Cigarette use (# per day): No Frequency of alcohol use: None Drug Abuse: None Lives with: Family Family History: None, Reviewed & Not Pertinent, DM, Hypertension Patient has suicidal ideation: No Patient has homicidal ideation: No - Past Medical History Cardiac Medical History: Reports: Hx Hypercholesterolemia, Hx Hypertension Endocrine Medical History: Reports: Hx Diabetes Mellitus Type 1 Renal/ Medical History: Reports: Hx Renal Insufficiency GI Medical History: Reports: Hx Gastroesophageal Reflux Disease Musculoskeletal Medical History: Reports Hx Arthritis - Hand Skin Medical History: Reports Hx Eczema Psychiatric Medical History: Reports: Hx Anxiety, Hx Bipolar Disorder, Hx Depression Infectious Medical History: Reports: Hx MRSA Past Surgical History: Reports: Hx Cholecystectomy - Immunizations Immunizations up to date: Yes Hx Diphtheria, Pertussis, Tetanus Vaccination: Yes - unknown Hx Pneumococcal Vaccination: 05/04/10 <SAPPHIRE BEST - Last Filed: 02/16/18 06:21> Review of Systems - Review of Systems Constitutional: No symptoms reported EENT: No symptoms reported Cardiovascular: No symptoms reported Respiratory: No symptoms reported Gastrointestinal: See HPI, Abdominal pain, Nausea, Vomiting Genitourinary: No symptoms reported Female Genitourinary: No symptoms reported Musculoskeletal: No symptoms reported Skin: No symptoms reported Hematologic/Lymphatic: No symptoms reported Neurological/Psychological: No symptoms reported -: Yes All other systems reviewed and negative <SAPPHIRE BEST - Last Filed: 02/16/18 06:21> Physical Exam <SAPPHIRE BEST - Last Filed: 02/16/18 06:21> <TRICIA DIXON - Last Filed: 02/16/18 08:24> - Vital signs Vitals: Pulse Resp BP Pulse Ox 139 H 28 H 174/109 H 100 02/16/18 03:54 02/16/18 03:54 02/16/18 03:54 02/16/18 03:54 - Notes Notes: Physical Exam: General: Sleeping upon entry. As the exam progresses patient begins rolling around and moaning which is her baseline presentation. HEENT: Normocephalic. Atraumatic. PERRL. Extraocular movements intact. Oropharynx clear. Dry mucous membranes. Neck: Supple. Non-tender. Respiratory: No respiratory distress. Clear and equal breath sounds bilaterally. Cardiovascular: Tachycardic into the 120s, regular rhythm. Abdominal: Obese. Non-tender. No distension. Normal Bowel Sounds. Back: Non-tender. No deformity or step off. Extremities: Moves all four extremities. Upper extremities: Normal inspection. Normal ROM. Lower extremities: Normal inspection. No edema. Normal ROM. Neurological: Normal cognition. AAOx4. Normal speech. Psychological: Normal affect. Normal Mood. Skin: Warm. Dry. Normal color. (SAPPHIRE BEST) Course - Laboratory Result Diagrams: 02/16/18 05:25 02/16/18 05:25 <SAPPHIRE BEST - Last Filed: 02/16/18 06:21> - Laboratory Result Diagrams: 02/16/18 05:25 02/16/18 05:25 - EKG Interpretation by Tx EKG shows normal: Sinus rhythm, Sharon, Intervals, QRS Complexes. abnormal: ST-T Waves - Nonspecific inferior T abnormalities Rate: Tachycardia - 133 P Waves: HAILEY, LAE When compared to previous EKG there are: No significant change - Consults Dr. Hendricks Time consulted: 08:15 Consulted provider: will come to ER <TRICIA DIXON - Last Filed: 02/16/18 08:24> - Vital Signs Vital signs: Temp Pulse Resp BP Pulse Ox 97.6 F 131 H 20 189/97 H 99 02/16/18 08:01 02/16/18 08:01 02/16/18 08:01 02/16/18 08:01 02/16/18 08:01 - Laboratory Laboratory results interpreted by me: 02/16/18 02/16/18 02/16/18 05:25 05:25 06:55 WBC 16.4 H Hct 35.5 L Seg Neutrophils % 91.4 H Lymphocytes % 5.9 L Monocytes % 2.5 L Absolute Neutrophils 15.0 H Sodium 134.7 L Carbon Dioxide 16 L Glucose 313 H Calcium 10.4 H Direct Bilirubin 0.5 H Urine Glucose (UA) >=500 H Urine Ketones 80 H Critical Care Note - Critical Care Note Total time excluding time spent on procedures (mins): 30 <TRICIA DIXON - Last Filed: 02/16/18 08:24> Discharge <SAPPHIRE BEST - Last Filed: 02/16/18 06:21> - Discharge Admitting Provider: Hospitalist Unit Admitted: IMCU <TRICIA DIXON - Last Filed: 02/16/18 08:24> - Discharge Clinical Impression: Gastroparesis due to DM, Hyperglycemia, Tachycardia Diabetes mellitus type 1, uncontrolled, insulin dependent Qualifiers: Glycemic state: with hyperglycemia Qualified Code(s): E10.65 - Type 1 diabetes mellitus with hyperglycemia DKA (diabetic ketoacidoses) Qualifiers: Diabetes mellitus type: type 1 Diabetes mellitus complication detail: without coma Qualified Code(s): E10.10 - Type 1 diabetes mellitus with ketoacidosis without coma Abdominal pain Qualifiers: Abdominal location: generalized Qualified Code(s): R10.84 - Generalized abdominal pain Leukocytosis Qualifiers: Leukocytosis type: unspecified Qualified Code(s): D72.829 - Elevated white blood cell count, unspecified Hypertension Qualifiers: Hypertension type: essential hypertension Qualified Code(s): I10 - Essential ( primary) hypertension Condition: Good Disposition: ADMITTED INPATIENT Referrals: GLEN MCGRATH PA-C [Primary Care Provider] - Follow up as needed Scribe Attestation: 02/16/18 08:07 I personally performed the services described in the documentation, reviewed and edited the documentation which was dictated to the scribe in my presence, and it accurately records my words and actions. (TRICIA DIXON) Scribe Documentation - Scribe Written by Scribe:: Perez Miles, 02/16/2018 0618 acting as scribe for :: Bruna <SAPPHIRE BEST - Last Filed: 02/16/18 06:21>
[2018-02-16 06:39] LABS: ALKALINE PHOSPHATASE 93 U/L (38-126)
[2018-02-16 07:17] LABS: APPEARANCE,URINE CLEAR; BILIRUBIN,URINE NEGATIVE (NEGATIVE); COLOR,URINE STRAW; GLUCOSE, URINE >=500 mg/dL (NEGATIVE); KETONES,URINE 80 mg/dL (NEGATIVE); LEUKOCYTE ESTERASE,URINE NEGATIVE (NEGATIVE); NITRITE,URINE NEGATIVE (NEGATIVE); PROTEIN,URINE NEGATIVE (NEGATIVE); URINE SPECIFIC GRAVITY 1.021; UROBILINOGEN,URINE NEGATIVE mg/dL (<2.0)
[2018-02-16] MEDS ORDERED: INSULIN REG, HUMAN 100 UNIT/ML 3 ML VIAL (PYX) IV ONE (08:06)
[2018-02-16] MEDS ORDERED: GLUCAGON,HUMAN RECOMB 1 MG INJ IM PRN (08:38)
[2018-02-16] MEDS ORDERED: DEXTROSE 50%-WATER 25 GM/50 ML DISP.SYRIN IV PRN ×2 (08:38)
[2018-02-16] MEDS ORDERED: DEXTROSE 40% GEL 15 GM TUBE PO PRN ×2 (08:38)
[2018-02-16] MEDS ORDERED: NALBUPHINE HCL INJ 10 MG/1 ML AMPULE INJ PRN (08:55)
[2018-02-16] MEDS ORDERED: PROMETHAZINE HCL INJ 25 MG/1 ML VIAL IV PRN (08:55)
[2018-02-16] MEDS: METOPROLOL TARTRATE PF/INJ 5 MG/5 ML SDV IV SCH ×4 (09:57→20:48)
[2018-02-16] MEDS: PANTOPRAZOLE SODIUM 40 MG VIAL IV SCH ×2 (09:58→22:13)
[2018-02-16] MEDS: ENOXAPARIN SODIUM INJ 40 MG/0.4 ML DISP.SYRIN SUBCUT SCH (09:59)
[2018-02-16] MEDS: POTASSI CL 20 MEQ/1/2NS 1L 20 MEQ/1,000 ML RTUINJ IV PRN ×3 (10:13→22:13)
[2018-02-16] MEDS: INSULIN GLARGINE,HUM.REC.ANLOG 300 UNIT/3 ML INSULN.PEN SUBCUT SCH (12:39)
[2018-02-16 13:00] LABS: ARTERIAL BLOOD BASE EXCESS -5.9 mmol/L; ARTERIAL BLOOD H2CO3 0.97 mmol/L (1.05-1.35); ARTERIAL BLOOD HCO3 18.3 mmol/L (20-24); ARTERIAL BLOOD O2 SATURATION 97.5 % (94-98); ARTERIAL BLOOD PCO2 32.2 mmHg (35-45); ARTERIAL BLOOD PH 7.37 (7.35-7.45); ARTERIAL BLOOD TOTAL CO2 19.3 mmol/L (21-25)
[2018-02-16 13:04] LABS: ARTERIAL BLOOD FIO2 ROOM AIR
[2018-02-16] MEDS ORDERED: CLONIDINE 0.2 MG/24 HR PATCH.TDWK TD SCH (14:00)
--- NOTE | 2018-02-16 14:30 | EKG REPORT ---
SEVERITY:- ABNORMAL ECG - SINUS TACHYCARDIA TAQUERIA, CONSIDER BIATRIAL ABNORMALITIES CONSIDER ANTEROSEPTAL INFARCT NONSPECIFIC T ABNORMALITIES, INFERIOR LEADS : Confirmed by: Buffy Guajardo MD 16-Feb-2018 14:30:35
[2018-02-16] MEDS: HALOPERIDOL LACTATE INJ 5 MG/1 ML VIAL IV PRN (16:25)
[2018-02-16] MEDS: INSULIN LISPRO 100 UNIT/ML 3 ML VIAL SUBCUT PRN (16:28)
[2018-02-16] MEDS: NALBUPHINE HCL INJ 10 MG/1 ML AMPULE IV PRN ×2 (18:37→23:02)
--- NOTE | 2018-02-16 19:13 | PDOC H&P ---
History of Present Illness Admission Date/PCP: 02/16/18 08:40 GLEN MCGRATH PA-C Ruth Ca is a 42-year-old -Surinamese female patient, well known to the emergency department, who presents today with a 1 day history of an acute exacerbation of her chronic abdominal pain accompanied by nausea without vomiting. She has had significant anorexia and decreased oral fluid intake over the last 24 hours since the worsened pain began. She describes the pain as a generalized aching soreness in her entire abdomen that is constant and moderately severe without radiation. She states this pain is different than her usual exacerbations of pain in that it is in a different location being generalized instead of only in the epigastrium and of a different quality being an aching soreness instead of a burning sharp pain. She admits a history of type 1 diabetes mellitus with autonomic neuropathy and gastroparesis. In the emergency room she was found to be moderately hyperglycemic and moderately dehydrated. She was mildly acidotic and ketotic and was subsequently admitted for treatment of her mild diabetic ketoacidosis. Patient complains of: Abdominal pain History of Present Illness: RUTH CA is a 42 year old female Past Medical History Cardiac Medical History: Reports: Hyperlipidema, Hypertension Endocrine Medical History: Reports: Diabetes Mellitus Type 1, Diabetes Mellitus Type 2 GI Medical History: Reports: Gastroesophageal Reflux Disease Musculoskeltal Medical History: Reports: Arthritis - Hand Skin Medical History: Reports: Eczema Psychiatric Medical History: Reports: Bipolar Disorder, Depression Hematology: Reports: Anemia Infectious Medical History: Reports: Methicillin-Resistant Staph Aureus Past Surgical History Past Surgical History: Reports: Cholecystectomy Social History Lives with: Family Smoking Status: Unknown if Ever Smoked Frequency of Alcohol Use: None Hx Recreational Drug Use: No Drugs: None Hx Prescription Drug Abuse: No Family History Family History: DM, Hypertension Parental Family History Reviewed: Yes Children Family History Reviewed: No Sibling(s) Family History Reviewed.: Yes Medication/Allergy Home Medications: Amlodipine Besylate [Norvasc 10 mg Tablet] 10 mg PO DAILY 02/16/18 Clonidine [Catapres-Tts 2 (0.2 mg/24 Hr) Transderm Ptch] 1 patch TOP DIALLO@1000 Desipramine HCl [Norpramin 25 mg Tablet] 25 mg PO QHS 02/16/18 Dexlansoprazole [Dexilant 60 mg Capsule] 60 mg PO DAILY 02/16/18 Dicyclomine HCl [Bentyl 10 mg Capsule] 10 mg PO QIDP PRN 02/16/18 Lisinopril [Prinivil] 20 mg PO DAILY 02/16/18 Metoprolol Tartrate [Lopressor 25 mg Tablet] 12.5 mg PO Q12 02/16/18 Polyethylene Glycol 3350 [Miralax Powder 17 gm/Packet] 17 gm PO DAILY 02/16/18 Terbinafine HCl [Lamisil 250 mg Tablet] 250 mg PO DAILY 02/16/18 Allergies/Adverse Reactions: metoclopramide HCl [From Reglan] Allergy (Unknown, Verified 02/05/18 07:48) Review of Systems Constitutional: PRESENT: anorexia. ABSENT: chills, fever(s) Eyes: ABSENT: visual disturbances, other - Ocular pain Ears: ABSENT: hearing changes, other - Ear pain Nose, Mouth, and Throat: ABSENT: mouth pain, sore throat Cardiovascular: ABSENT: chest pain, dyspnea on exertion, orthropnea, palpitations Respiratory: ABSENT: cough, dyspnea, hemoptysis Gastrointestinal: PRESENT: abdominal pain, nausea. ABSENT: bloating, constipation, diarrhea, dysphagia, heartburn, hematemesis, hematochezia, melena , vomiting Genitourinary: ABSENT: difficulty urinating, dysuria, hematuria Musculoskeletal: ABSENT: back pain, deformity, joint swelling Integumentary: ABSENT: pruritus, rash Neurological: ABSENT: confusion, focal weakness, memory loss Psychiatric: ABSENT: anxiety, depression Endocrine: ABSENT: cold intolerance, heat intolerance, polydipsia, polyphagia Hematologic/Lymphatic: ABSENT: easy bleeding, easy bruising Physical Exam Vital Signs: Temp Pulse Resp BP Pulse Ox 99.6 F 102 H 22 H 179/92 H 100 02/16/18 16:37 02/16/18 16:53 02/16/18 16:37 02/16/18 16:37 02/16/18 16:37 Intake & Output 02/15/18 02/16/18 02/17/18 06:59 06:59 06:59 Intake Total 1966 Balance 1966 Weight 66.9 kg General appearance: PRESENT: no acute distress, cooperative, well-nourished Head exam: PRESENT: atraumatic, normocephalic Eye exam: PRESENT: conjunctiva pink, EOMI, PERRLA. ABSENT: conjunctival injection, nystagmus, periorbital swelling, scleral icterus Ear exam: PRESENT: normal external ear exam. ABSENT: bleeding, drainage Mouth exam: PRESENT: dry mucosa, neck supple, tongue midline Neck exam: ABSENT: meningismus, tenderness, thyromegaly, tracheal deviation Respiratory exam: PRESENT: clear to auscultation bernardo, symmetrical, unlabored Cardiovascular exam: PRESENT: RRR. ABSENT: bradycardia, clicks, diastolic murmur, gallop, rubs, systolic murmur, tachycardia Pulses: PRESENT: normal radial pulses, normal dorsalis pedis pul Vascular exam: PRESENT: normal capillary refill. ABSENT: pallor GI/Abdominal exam: PRESENT: normal bowel sounds, soft, tenderness - Mild generalized tenderness to deep palpation. ABSENT: distended Rectal exam: PRESENT: deferred Extremities exam: ABSENT: joint swelling, pedal edema Musculoskeletal exam: PRESENT: full ROM, normal inspection Neurological exam: PRESENT: alert, awake, oriented to person, oriented to place , oriented to time, oriented to situation, CN II-XII grossly intact. ABSENT: motor sensory deficit Psychiatric exam: PRESENT: appropriate affect, normal mood Skin exam: ABSENT: jaundice, rash, urticaria Results Laboratory Results: 02/16/18 12:48 Carbonic Acid 0.97 L HCO3/H2CO3 Ratio 18:1 ABG pH 7.37 ABG pCO2 32.2 L ABG pO2 100.0 ABG HCO3 18.3 L ABG O2 Saturation 97.5 ABG Base Excess -5.9 FiO2 ROOM AIR Assessment & Plan - Diagnosis (1) Abdominal pain Qualifiers: Abdominal location: generalized Qualified Code(s): R10.84 - Generalized abdominal pain Is this a current diagnosis for this admission?: Yes Plan: The patient's abdominal pain and nausea will be treated symptomatically and with supportive cares. Her IV fluids will be continued as part of her treatment of her diabetic ketoacidosis. Reevaluation of her abdominal pain will be done on serial exams at least once daily. (2) DKA (diabetic ketoacidoses) Qualifiers: Diabetes mellitus type: type 1 Diabetes mellitus complication detail: without coma Qualified Code(s): E10.10 - Type 1 diabetes mellitus with ketoacidosis without coma Is this a current diagnosis for this admission?: Yes Plan: Patient has mild diabetic ketoacidosis and will be treated with IV fluids as well as sliding scale insulin and other symptomatic and supportive cares. Her status will be monitored closely with serial lab work. Additional interventions will be entertained and employed as required. (3) Gastroparesis due to DM Is this a current diagnosis for this admission?: Yes Plan: The patient has chronic gastroparesis with chronic abdominal pain although her current pain does not seem to be the same as her previous episodes of increased pain with acute exacerbations of her gastroparesis and acute gastritis. Continued observation of her course should help clarify the causation of her abdominal pain. (4) Accelerated essential hypertension Is this a current diagnosis for this admission?: Yes Plan: Patient's blood pressure is significantly elevated on admission as she has not been taking her antihypertensive medications. With control of her nausea her oral medications will be resumed in the status of her hypertension will be reevaluated. In the meantime IV medications will be administered to control her blood pressure. Additionally patient's pain will be controlled with IV Nubain which may also help to reduce the accelerated hypertension. - Time Time Spent: Greater than 70 Minutes Medications reviewed and adjusted accordingly: Yes Anticipated discharge: Home Within: within 72 hours
[2018-02-16 19:26] LABS: ANION GAP 8 (5-19); BLOOD UREA NITROGEN 10 mg/dL (7-20); CALCIUM 9.3 mg/dL (8.4-10.2); CARBON DIOXIDE 22 mmol/L (22-30); CHLORIDE 103 mmol/L (98-107); GLUCOSE 153 mg/dL (75-110); POTASSIUM 4.2 mmol/L (3.6-5.0)
[2018-02-17] MEDS: METOPROLOL TARTRATE PF/INJ 5 MG/5 ML SDV IV SCH ×6 (01:05→22:56)
[2018-02-17 05:13] LABS: ABSOLUTE LYMPHOCYTES (AUTO) 2.2 10^3/uL (0.5-4.7); ABSOLUTE NEUT (AUTO) 10.7 10^3/uL (1.7-8.2); BASOPHILS % (AUTO) 0.2 % (0-2); EOSINOPHILS % (AUTO) 0.3 % (0-6); HEMATOCRIT 36.4 % (36.0-47.0); HEMOGLOBIN 12.2 g/dL (12.0-15.5); LYMPHOCYTES % (AUTO) 15.9 % (13-45); MEAN CORPUSCULAR HEMOGLOBIN 28.9 pg (27.0-33.4); MEAN CORPUSCULAR HGB CONC 33.4 g/dL (32.0-36.0); MEAN CORPUSCULAR VOLUME 87 fl (80-97); MONOCYTES % (AUTO) 6.9 % (3-13); PLATELET COUNT 337 10^3/uL (150-450); RED CELL DISTRIBUTION WIDTH 13.8 % (11.5-14.0); SEGMENTED NEUTROPHILS % (AUTO) 76.7 % (42-78); TOTAL CELLS COUNTED % (AUTO) 100 %; WHITE BLOOD COUNT 13.9 10^3/uL (4.0-10.5)
[2018-02-17 05:46] LABS: ANION GAP 14 (5-19); BLOOD UREA NITROGEN 12 mg/dL (7-20); CALCIUM 9.7 mg/dL (8.4-10.2); CARBON DIOXIDE 19 mmol/L (22-30); CHLORIDE 100 mmol/L (98-107); GLUCOSE 163 mg/dL (75-110); POTASSIUM 4.5 mmol/L (3.6-5.0); SODIUM 132.5 mmol/L (137-145)
[2018-02-17] MEDS: POTASSI CL 20 MEQ/1/2NS 1L 20 MEQ/1,000 ML RTUINJ IV PRN ×2 (06:06→14:20)
[2018-02-17] MEDS: NALBUPHINE HCL INJ 10 MG/1 ML AMPULE IV PRN ×4 (06:17→20:01)
[2018-02-17] MEDS: HYDRALAZINE HCL INJ/PF 20 MG/1 ML SDV IV PRN ×2 (08:07→20:05)
[2018-02-17] MEDS: INSULIN GLARGINE,HUM.REC.ANLOG 300 UNIT/3 ML INSULN.PEN SUBCUT SCH (08:07)
[2018-02-17] MEDS: INSULIN LISPRO 100 UNIT/ML 3 ML VIAL SUBCUT PRN ×2 (08:08→22:14)
[2018-02-17] MEDS: PANTOPRAZOLE SODIUM 40 MG VIAL IV SCH ×2 (09:43→22:56)
[2018-02-17] MEDS: ENOXAPARIN SODIUM INJ 40 MG/0.4 ML DISP.SYRIN SUBCUT SCH (09:43)
--- NOTE | 2018-02-17 13:37 | Physician Advisory Note ---
Physician Advisor ProgressNote .: [facility] to the [facility], I have reviewed the medical record for this patient. Physician Advisor Statement: Please consider documenting, if you agree: 1. "Acute hyponatremia, suspect due to " (worse, tho' glc levels improved - still overall dehydrated clinically, or ...?) 2. "Acute generalized abd pain, suspect due to " 3. Medical necessity: clinical reasons pt is not safe for d/c today - is she still not able to tolerate adequate po intake & home meds? - are you concerned about her continued leukocytosis? her persistent tachycardia despite scheduled IV metoprolol? her persistent metabolic acidosis? her frequent need for IV Nubain? ("I AM CONCERNED about " is always a good thing to document when applicable - supports medical necessity, status.) Status: Pt w/DM I, overall poor control as manifested by frequent ED visits & late-stage complications at young age, w/exacerb of gastroparesis w/ abd pain different than usual exac.s/DKA episodes, persistent leukocytosis, worsening acute hyponatremia despite improved hyperglycemia, persistent tachycaradia ... despite IVF & IV meds, insulin. - If clinically not stable enough for safe d/c today, please document reasons attending feels this is so, & then [facility]. Thanks! CK
--- NOTE | 2018-02-17 15:35 | PDOC PROGRESS REPORT ---
Subjective Progress Note for:: 02/17/18 Subjective:: Kasey Murphy is a 42-year-old -Chinese female patient, well known to the emergency department, who presents today with a 1 day history of an acute exacerbation of her chronic abdominal pain accompanied by nausea without vomiting. She has had significant anorexia and decreased oral fluid intake over the last 24 hours since the worsened pain began. She describes the pain as a generalized aching soreness in her entire abdomen that is constant and moderately severe without radiation. She states this pain is different than her usual exacerbations of pain in that it is in a different location being generalized instead of only in the epigastrium and of a different quality being an aching soreness instead of a burning sharp pain. She admits a history of type 1 diabetes mellitus with autonomic neuropathy and gastroparesis. In the emergency room she was found to be moderately hyperglycemic and moderately dehydrated. She was mildly acidotic and ketotic and was subsequently admitted for treatment of her mild diabetic ketoacidosis. 02/17/18: Kasey states that she feels a little better today than she did yesterday but she is still unable to eat as she has very little appetite. She continues to have some soreness and aching in her abdomen is significantly less intense than it was yesterday. She states she just does not feel quite well yet. Her metabolic labs have improved significantly and her white blood count has decreased. We will continue with rehydration using IV fluids as she is not taking adequate intake orally to maintain good hydration. She is also somewhat anxious about events surrounding her daughter's and is feeling like she needs something to help her calm down. Reason For Visit: DIABETIC GASTROPARESIS,UNCONTROLLED TYPE1 DIABETES Physical Exam Vital Signs: Temp Pulse Resp BP Pulse Ox 99.2 F 112 H 14 136/74 H 100 02/17/18 11:30 02/17/18 11:30 02/17/18 11:30 02/17/18 11:30 02/17/18 11:30 Intake & Output 02/16/18 02/17/18 02/18/18 06:59 06:59 06:59 Intake Total 3926 1237 Balance 3926 1237 Weight 71.2 kg General appearance: PRESENT: cooperative, mild distress Head exam: PRESENT: atraumatic, normocephalic Eye exam: ABSENT: conjunctival injection, scleral icterus Ear exam: PRESENT: normal external ear exam. ABSENT: drainage Mouth exam: PRESENT: moist, tongue midline Neck exam: ABSENT: thyromegaly, tracheal deviation Respiratory exam: PRESENT: clear to auscultation bernardo, symmetrical, unlabored Cardiovascular exam: PRESENT: RRR. ABSENT: diastolic murmur, systolic murmur Vascular exam: PRESENT: normal capillary refill. ABSENT: pallor GI/Abdominal exam: PRESENT: normal bowel sounds, soft, tenderness - Minimal to mild generalized tenderness on palpation. ABSENT: distended Rectal exam: PRESENT: deferred Extremities exam: ABSENT: joint swelling, pedal edema Musculoskeletal exam: PRESENT: full ROM, normal inspection Neurological exam: PRESENT: alert, oriented to person, oriented to place, oriented to time, oriented to situation, CN II-XII grossly intact Psychiatric exam: PRESENT: anxious, depressed, other - Distracted and somewhat restless Skin exam: ABSENT: jaundice, rash, urticaria Results Laboratory Results: 02/17/18 04:26 02/17/18 04:26 02/16/18 02/17/18 02/17/18 18:51 04:26 04:26 WBC 13.9 H RBC 4.20 Hgb 12.2 Hct 36.4 MCV 87 MCH 28.9 MCHC 33.4 RDW 13.8 Plt Count 337 Seg Neutrophils % 76.7 Lymphocytes % 15.9 Monocytes % 6.9 Eosinophils % 0.3 Basophils % 0.2 Absolute Neutrophils 10.7 H Absolute Lymphocytes 2.2 Absolute Monocytes 1.0 Absolute Eosinophils 0.0 Absolute Basophils 0.0 Sodium 133.0 L 132.5 L Potassium 4.2 4.5 Chloride 103 100 Carbon Dioxide 22 19 L Anion Gap 8 14 BUN 10 12 Creatinine 0.82 0.83 Est GFR ( Amer) > 60 > 60 Est GFR (Non-Af Amer) > 60 > 60 Glucose 153 H 163 H Calcium 9.3 9.7 Magnesium 1.6 1.7 TSH 02/17/18 04:26 WBC RBC Hgb Hct MCV MCH MCHC RDW Plt Count Seg Neutrophils % Lymphocytes % Monocytes % Eosinophils % Basophils % Absolute Neutrophils Absolute Lymphocytes Absolute Monocytes Absolute Eosinophils Absolute Basophils Sodium Potassium Chloride Carbon Dioxide Anion Gap BUN Creatinine Est GFR ( Amer) Est GFR (Non-Af Amer) Glucose Calcium Magnesium TSH 0.65 Assessment & Plan - Diagnosis (1) Abdominal pain Qualifiers: Abdominal location: generalized Qualified Code(s): R10.84 - Generalized abdominal pain Is this a current diagnosis for this admission?: Yes Plan: The patient's abdominal pain and nausea will be treated symptomatically and with supportive cares. Her IV fluids will be continued as part of her treatment of her diabetic ketoacidosis. Reevaluation of her abdominal pain will be done on serial exams at least once daily. IV fluids to be restarted to assure adequate hydration and exam will be followed on a daily basis. (2) DKA (diabetic ketoacidoses) Qualifiers: Diabetes mellitus type: type 1 Diabetes mellitus complication detail: without coma Qualified Code(s): E10.10 - Type 1 diabetes mellitus with ketoacidosis without coma Is this a current diagnosis for this admission?: Yes Plan: Patient has mild diabetic ketoacidosis and will be treated with IV fluids as well as sliding scale insulin and other symptomatic and supportive cares. Her status will be monitored closely with serial lab work. Additional interventions will be entertained and employed as required. (3) Gastroparesis due to DM Is this a current diagnosis for this admission?: Yes Plan: The patient has chronic gastroparesis with chronic abdominal pain although her current pain does not seem to be the same as her previous episodes of increased pain with acute exacerbations of her gastroparesis and acute gastritis. Continued observation of her course should help clarify the causation of her abdominal pain. (4) Accelerated essential hypertension Is this a current diagnosis for this admission?: Yes Plan: Patient's blood pressure is significantly elevated on admission as she has not been taking her antihypertensive medications. With control of her nausea her oral medications will be resumed in the status of her hypertension will be reevaluated. In the meantime IV medications will be administered to control her blood pressure. Additionally patient's pain will be controlled with IV Nubain which may also help to reduce the accelerated hypertension. - Time Time Spent with patient: 35 or more minutes Medications reviewed and adjusted accordingly: Yes Anticipated discharge: Home Within: within 48 hours
[2018-02-17] MEDS: AMLODIPINE BESYLATE 10 MG TABLET PO SCH (22:12)
[2018-02-18] MEDS: POTASSI CL 20 MEQ/1/2NS 1L 20 MEQ/1,000 ML RTUINJ IV PRN (00:04)
[2018-02-18] MEDS: NALBUPHINE HCL INJ 10 MG/1 ML AMPULE IV PRN ×3 (00:07→08:27)
[2018-02-18] MEDS: METOPROLOL TARTRATE PF/INJ 5 MG/5 ML SDV IV SCH ×6 (02:17→21:39)
[2018-02-18] MEDS ORDERED: KETOROLAC TROMETHAMINE INJ/PF 30 MG/1 ML SDV IV ONE (04:10)
[2018-02-18 05:17] LABS: ABSOLUTE LYMPHOCYTES (AUTO) 2.2 10^3/uL (0.5-4.7); ABSOLUTE MONOCYTES (AUTO) 0.8 10^3/uL (0.1-1.4); ABSOLUTE NEUT (AUTO) 7.9 10^3/uL (1.7-8.2); BASOPHILS % (AUTO) 0.4 % (0-2); EOSINOPHILS % (AUTO) 0.2 % (0-6); HEMATOCRIT 36.4 % (36.0-47.0); HEMOGLOBIN 12.3 g/dL (12.0-15.5); LYMPHOCYTES % (AUTO) 19.7 % (13-45); MEAN CORPUSCULAR HEMOGLOBIN 29.2 pg (27.0-33.4); MEAN CORPUSCULAR HGB CONC 33.9 g/dL (32.0-36.0); MEAN CORPUSCULAR VOLUME 86 fl (80-97); MONOCYTES % (AUTO) 7.5 % (3-13); PLATELET COUNT 410 10^3/uL (150-450); RED BLOOD COUNT 4.22 10^6/uL (3.72-5.28); RED CELL DISTRIBUTION WIDTH 13.7 % (11.5-14.0); SEGMENTED NEUTROPHILS % (AUTO) 72.2 % (42-78); TOTAL CELLS COUNTED % (AUTO) 100 %
[2018-02-18 05:35] LABS: ANION GAP 15 (5-19); BLOOD UREA NITROGEN 15 mg/dL (7-20); CALCIUM 10.4 mg/dL (8.4-10.2); CARBON DIOXIDE 17 mmol/L (22-30); CHLORIDE 100 mmol/L (98-107); GLUCOSE 183 mg/dL (75-110); POTASSIUM 4.8 mmol/L (3.6-5.0); SODIUM 132.2 mmol/L (137-145)
[2018-02-18] MEDS: NORMAL SALINE 1000 ML 1,000 ML IV PRN ×2 (07:00→16:54)
[2018-02-18] MEDS: INSULIN GLARGINE,HUM.REC.ANLOG 300 UNIT/3 ML INSULN.PEN SUBCUT SCH (08:28)
[2018-02-18] MEDS: INSULIN LISPRO 100 UNIT/ML 3 ML VIAL SUBCUT PRN ×3 (08:29→21:41)
[2018-02-18] MEDS ORDERED: ERYTHROMYCIN ETHYLSUCC 400 MG/5 ML SUSP 100 ML PO SCH (10:00)
[2018-02-18] MEDS: LISINOPRIL 10 MG TABLET PO SCH (10:03)
[2018-02-18] MEDS: PANTOPRAZOLE SODIUM 40 MG VIAL IV SCH ×2 (10:04→21:40)
[2018-02-18] MEDS: ENOXAPARIN SODIUM INJ 40 MG/0.4 ML DISP.SYRIN SUBCUT SCH (10:09)
[2018-02-18] MEDS: ERYTHROMYCIN ETHYLSUCC 400 MG/5 ML SUSP 100 ML PO SCH ×2 (16:54→21:38)
--- NOTE | 2018-02-18 17:50 | PDOC PROGRESS REPORT ---
Subjective Progress Note for:: 02/18/18 Subjective:: Ms. Murphy is a 32-year-old female with diabetes mellitus, hypertension and diabetic gastroparesis who was admitted for DKA initially. Her DKA has resolved but she continued to have abdominal pain and nausea from her gastroparesis. No acute event overnight. She says she feels much better today. She was able to tolerate close to 50% of her diet earlier today. She says her abdominal pain is better. Reason For Visit: DIABETIC GASTROPARESIS,UNCONTROLLED TYPE1 DIABETES Physical Exam Vital Signs: Temp Pulse Resp BP Pulse Ox 98.9 F 110 H 20 162/97 H 100 02/18/18 16:07 02/18/18 16:07 02/18/18 16:07 02/18/18 16:07 02/18/18 16:07 Intake & Output 02/17/18 02/18/18 02/19/18 06:59 06:59 06:59 Intake Total 3926 3252 1118 Output Total 600 Balance 3926 2652 1118 Weight 156 lb 15.506 oz 157 lb 6.561 oz General appearance: PRESENT: no acute distress, well-developed, well-nourished Head exam: PRESENT: atraumatic, normocephalic Eye exam: PRESENT: conjunctiva pink, EOMI, PERRLA. ABSENT: scleral icterus Ear exam: PRESENT: normal external ear exam Mouth exam: PRESENT: moist, tongue midline Neck exam: ABSENT: carotid bruit, JVD, lymphadenopathy, thyromegaly Respiratory exam: PRESENT: clear to auscultation bernardo. ABSENT: rales, rhonchi, wheezes Cardiovascular exam: PRESENT: RRR. ABSENT: diastolic murmur, rubs, systolic murmur Pulses: PRESENT: normal dorsalis pedis pul GI/Abdominal exam: PRESENT: normal bowel sounds, soft. ABSENT: distended, guarding, mass, organolmegaly, rebound, tenderness Rectal exam: PRESENT: deferred Neurological exam: PRESENT: alert, awake, oriented to person, oriented to place , oriented to time, oriented to situation, CN II-XII grossly intact. ABSENT: motor sensory deficit Results Laboratory Results: 02/18/18 04:25 02/18/18 04:25 02/18/18 02/18/18 04:25 04:25 WBC 11.0 H RBC 4.22 Hgb 12.3 Hct 36.4 MCV 86 MCH 29.2 MCHC 33.9 RDW 13.7 Plt Count 410 Seg Neutrophils % 72.2 Lymphocytes % 19.7 Monocytes % 7.5 Eosinophils % 0.2 Basophils % 0.4 Absolute Neutrophils 7.9 Absolute Lymphocytes 2.2 Absolute Monocytes 0.8 Absolute Eosinophils 0.0 Absolute Basophils 0.0 Sodium 132.2 L Potassium 4.8 Chloride 100 Carbon Dioxide 17 L Anion Gap 15 BUN 15 Creatinine 0.89 Est GFR ( Amer) > 60 Est GFR (Non-Af Amer) > 60 Glucose 183 H Calcium 10.4 H Magnesium 1.7 Assessment & Plan - Diagnosis (1) DKA (diabetic ketoacidoses) Qualifiers: Diabetes mellitus type: type 1 Diabetes mellitus complication detail: without coma Qualified Code(s): E10.10 - Type 1 diabetes mellitus with ketoacidosis without coma Is this a current diagnosis for this admission?: Yes Plan: Mild DKA. Resolved. Patient does not take insulin at home anymore. She is a type I diabetic. She is currently on Lantus 20 units daily on top of sliding scale. Her A1c is elevated at 9.4. Sugars are currently at goal with current regimen. Continue current insulin regimen. (2) Gastroparesis due to DM Is this a current diagnosis for this admission?: Yes Plan: Patient says that she does have chronic abdominal pain from her gastroparesis. She says she was tried on Reglan before but she developed shortness of breath hence was taken off the Reglan. Explained and discussed in length with patient that optimal glycemic control is significantly important component in improving the symptoms of gastroparesis. Discussed options of treatment for her gastroparesis which mostly will be outpatient procedures with a GI specialist. Will discontinue Nubain as this also can potentially worsen the gastroparesis. Will start patient on erythromycin and assess her response to p.o. erythromycin. Patient says that she was evaluated at [facility] for her gastroparesis. She said that she will need a repeat gastric emptying study before discussing further options are treatment for her gastroparesis but she says she was not able to comply with the gastric emptying study yet. Will order for a gastric emptying study. (3) Hypertension Qualifiers: Hypertension type: essential hypertension Qualified Code(s): I10 - Essential (primary) hypertension Is this a current diagnosis for this admission?: Yes Plan: Systolic blood pressures are running in the 180s. Patient is currently on hydralazine as needed and metoprolol. We will add lisinopril 20 mg daily today. - Time Time Spent with patient: 25-34 minutes
[2018-02-18] MEDS ORDERED: HYDROCODONE/ACETAMINOPHEN 5-325 MG TABLET PO PRN (18:35)
[2018-02-18] MEDS ORDERED: GLUCAGON,HUMAN RECOMB 1 MG INJ SUBCUT PRN (18:50)
[2018-02-18] MEDS ORDERED: DEXTROSE 50%-WATER 25 GM/50 ML DISP.SYRIN IV PRN ×2 (18:50)
[2018-02-18] MEDS ORDERED: DEXTROSE 40% GEL 15 GM TUBE PO PRN ×2 (18:50)
[2018-02-18] MEDS: DIPHENHYDRAMINE HCL 50 MG/ML VIAL IV PRN (20:03)
[2018-02-18] MEDS ORDERED: HALOPERIDOL LACTATE INJ 5 MG/1 ML VIAL ONE (20:36)
[2018-02-18] MEDS ORDERED: HALOPERIDOL LACTATE INJ 5 MG/1 ML VIAL IV ONE (21:00)
[2018-02-18] MEDS: AMLODIPINE BESYLATE 10 MG TABLET PO SCH (21:41)
[2018-02-19] MEDS: DIPHENHYDRAMINE HCL 50 MG/ML VIAL IV PRN (00:44)
[2018-02-19] MEDS: METOPROLOL TARTRATE PF/INJ 5 MG/5 ML SDV IV SCH ×4 (00:44→13:16)
[2018-02-19] MEDS: HALOPERIDOL LACTATE INJ 5 MG/1 ML VIAL IV PRN (01:44)
[2018-02-19 04:48] LABS: ABSOLUTE LYMPHOCYTES (AUTO) 1.8 10^3/uL (0.5-4.7); ABSOLUTE MONOCYTES (AUTO) 0.8 10^3/uL (0.1-1.4); ABSOLUTE NEUT (AUTO) 7.6 10^3/uL (1.7-8.2); BASOPHILS % (AUTO) 0.4 % (0-2); HEMOGLOBIN 12.9 g/dL (12.0-15.5); LYMPHOCYTES % (AUTO) 17.4 % (13-45); MEAN CORPUSCULAR HEMOGLOBIN 29.4 pg (27.0-33.4); MEAN CORPUSCULAR HGB CONC 34.8 g/dL (32.0-36.0); MEAN CORPUSCULAR VOLUME 85 fl (80-97); MONOCYTES % (AUTO) 8.3 % (3-13); PLATELET COUNT 426 10^3/uL (150-450); RED BLOOD COUNT 4.38 10^6/uL (3.72-5.28); RED CELL DISTRIBUTION WIDTH 13.4 % (11.5-14.0); SEGMENTED NEUTROPHILS % (AUTO) 73.9 % (42-78); TOTAL CELLS COUNTED % (AUTO) 100 %; WHITE BLOOD COUNT 10.2 10^3/uL (4.0-10.5)
[2018-02-19] MEDS: ERYTHROMYCIN ETHYLSUCC 400 MG/5 ML SUSP 100 ML PO SCH ×2 (05:04→13:16)
[2018-02-19] MEDS: NORMAL SALINE 1000 ML 1,000 ML IV PRN ×2 (05:05→15:11)
[2018-02-19 05:12] LABS: ANION GAP 16 (5-19); BLOOD UREA NITROGEN 12 mg/dL (7-20); CALCIUM 10.2 mg/dL (8.4-10.2); CARBON DIOXIDE 18 mmol/L (22-30); CHLORIDE 99 mmol/L (98-107); GLUCOSE 190 mg/dL (75-110); POTASSIUM 4.5 mmol/L (3.6-5.0); SODIUM 133.1 mmol/L (137-145)
[2018-02-19] MEDS: INSULIN LISPRO 100 UNIT/ML 3 ML VIAL SUBCUT PRN (08:17)
[2018-02-19] MEDS: INSULIN GLARGINE,HUM.REC.ANLOG 300 UNIT/3 ML INSULN.PEN SUBCUT SCH (08:17)
[2018-02-19] MEDS: ENOXAPARIN SODIUM INJ 40 MG/0.4 ML DISP.SYRIN SUBCUT SCH (11:00)
[2018-02-19] MEDS: PANTOPRAZOLE SODIUM 40 MG VIAL IV SCH (11:01)
[2018-02-19] MEDS: LISINOPRIL 10 MG TABLET PO SCH (12:56)
--- NOTE | 2018-02-19 13:24 | RADIOLOGY REPORT (SQ) ---
EXAM DESCRIPTION: NM GASTRIC EMPTYING STUDY COMPLETED DATE/TIME: 02/19/2018 1:13 pm REASON FOR STUDY: worsending gastroparesis COMPARISON: Abdominal ultrasound 12/16/2017 Supine and erect view of the abdomen 01/17/2018 RADIONUCLIDE AND DOSE: 2.1 millicuries Tc-99m Sulfur Colloid. Egg salad sandwich The route of agent administration: Oral. TECHNIQUE: 1 minute serial static imaging performed at time of meal, 1 hour, 2 hours, 3 hours, and 4 hours as needed. Once stomach reaches 90% emptying, the test is complete. Image intensity values pl otted with respect to time with linear regression algorithm. LIMITATIONS: None. FINDINGS: Patient was observed for 4 hours. Immediate post meal serves as baseline. Gastric emptying at 30 minutes was 30%. Gastric emptying at 90 minutes was 52%. Gastric emptying at 120 minutes was 76% Gastric emptying at 240 minutes was 95%. Normal values: 60 minutes: 30-90% retained. If less than 30%, abnormally rapid emptying. If greater than 90%, del ayed gastric emptying. 120 minutes: <60% retained. If greater than 60%, delayed gastric emptying. 240 minutes: <10% retained. If greater than 10%, delayed gastric emptying. IMPRESSION: NORMAL GASTRIC EMPTYING. TECHNICAL DOCUMENTATION: JOB ID: [id number] [employer]- All Rights Reserved Reading location - IP/workstation name: [email or web address]
[2018-02-19 16:37] VITALS: BP 179/92
--- NOTE | 2018-02-19 16:51 | PDOC DISCHARGE SUMMARY ---
General - Admit/Disc Date/PCP Admission Date/Primary Care Provider: 02/16/18 08:40 GLEN MCGRATH PA-C Discharge Date: 02/19/18 - Discharge Diagnosis (1) DKA (diabetic ketoacidoses) Is this a current diagnosis for this admission?: Yes (2) Hypertension Is this a current diagnosis for this admission?: Yes - Additional Information Prescriptions: Gabapentin [Neurontin 100 mg Capsule] 100 mg PO TID PRN #30 capsule PRN Reason: Insulin Glargine,Hum.rec.anlog [Lantus Insulin 100 Unit/mL] 24 unit SUBCUT QAM # 4 insuln.pen Home Medications: Amlodipine Besylate [Norvasc 10 mg Tablet] 10 mg PO DAILY 02/16/18 Clonidine [Catapres-Tts 2 (0.2 mg/24 Hr) Transderm Ptch] 1 patch TOP DIALLO@1000 Desipramine HCl [Norpramin 25 mg Tablet] 25 mg PO QHS 02/16/18 Dexlansoprazole [Dexilant 60 mg Capsule] 60 mg PO DAILY 02/16/18 Dicyclomine HCl [Bentyl 10 mg Capsule] 10 mg PO QIDP PRN 02/16/18 Lisinopril [Prinivil] 20 mg PO DAILY 02/16/18 Metoprolol Tartrate [Lopressor 25 mg Tablet] 12.5 mg PO Q12 02/16/18 Polyethylene Glycol 3350 [Miralax Powder 17 gm/Packet] 17 gm PO DAILY 02/16/18 Terbinafine HCl [Lamisil 250 mg Tablet] 250 mg PO DAILY 02/16/18 Gabapentin [Neurontin 100 mg Capsule] 100 mg PO TID PRN #30 capsule 02/19/18 Insulin Glargine,Hum.rec.anlog [Lantus Insulin 100 Unit/mL] 24 unit SUBCUT QAM # 4 insuln.pen 02/19/18 Insulin Lispro [Humalog Insulin (Lispro) 100 unit/mL] 0 - 12 unit SUBCUT ACHSP PRN unit 02/19/18 History of Present Illness History of Present Illness: RUTH CA is a 42 year old female Hospital Course Hospital Course: Ms. Ca is a 32-year-old female with diabetes mellitus, hypertension and history of diabetic gastroparesis who initially presented with nausea and gastric pain. Patient was found to have DKA and was started on insulin and was also given IV fluids. She did have improvement in her abdominal pain. She had multiple admissions and ER visits because of recurrent abdominal pain. Reviewed previous charts and diagnostic workup done. Patient had multiple abdominal CT and even CTAs as part of her workup for her abdominal pain and previous imaging have all been unremarkable. Patient does have a history of diabetic gastroparesis on chart review. She said that she was evaluated at [facility] and they wanted to repeat a gastric emptying study before they will consider further treatment options. Gastric emptying study was pursued in this admission and it came back NORMAL. Explained the results with patient that her gastric imaging study has been normal. She verbalized understanding. Her acute abdominal pain resolved upon day of discharge. Abdominal exam was also completely normal with no tenderness or peritoneal signs. Her hemoglobin A1c did came back elevated at 9.4 from previous A1c. She takes 20 units of Lantus daily with sliding scale at home. Her Lantus will be increased to 25 units daily upon discharge. She will continue to log her sugars at home and will follow up with the PCP in 7 days for titration of his her insulin regimen. She was tolerating diet well. Her abdominal pain and nausea in this admission is likely DKA-related. If she continues to have persistent and recurrent abdominal pain, recommend considering outpatient EGD. Physical Exam Vital Signs: Temp Pulse Resp BP Pulse Ox 99.2 F 94 12 128/76 H 100 02/19/18 15:06 02/19/18 15:06 02/19/18 15:06 02/19/18 15:06 02/19/18 15:06 Intake & Output 02/18/18 02/19/18 02/20/18 06:59 06:59 06:59 Intake Total 3252 2218 669 Output Total 600 Balance 2652 2218 669 Weight 157 lb 6.561 oz 148 lb 2.41 oz General appearance: PRESENT: no acute distress, well-developed, well-nourished Head exam: PRESENT: atraumatic, normocephalic Eye exam: PRESENT: conjunctiva pink, EOMI, PERRLA. ABSENT: scleral icterus Ear exam: PRESENT: normal external ear exam Mouth exam: PRESENT: moist, tongue midline Neck exam: ABSENT: carotid bruit, JVD, lymphadenopathy, thyromegaly Respiratory exam: PRESENT: clear to auscultation bernardo. ABSENT: rales, rhonchi, wheezes Cardiovascular exam: PRESENT: RRR. ABSENT: diastolic murmur, rubs, systolic murmur Vascular exam: PRESENT: normal capillary refill GI/Abdominal exam: PRESENT: normal bowel sounds, soft. ABSENT: distended, guarding, mass, organolmegaly, rebound, tenderness Rectal exam: PRESENT: deferred Neurological exam: PRESENT: alert, awake, oriented to person, oriented to place , oriented to time, oriented to situation, CN II-XII grossly intact. ABSENT: motor sensory deficit Results Laboratory Results: 02/19/18 03:53 02/19/18 03:53 02/19/18 02/19/18 03:53 03:53 WBC 10.2 RBC 4.38 Hgb 12.9 Hct 37.0 MCV 85 MCH 29.4 MCHC 34.8 RDW 13.4 Plt Count 426 Seg Neutrophils % 73.9 Lymphocytes % 17.4 Monocytes % 8.3 Eosinophils % 0.0 Basophils % 0.4 Absolute Neutrophils 7.6 Absolute Lymphocytes 1.8 Absolute Monocytes 0.8 Absolute Eosinophils 0.0 Absolute Basophils 0.0 Sodium 133.1 L Potassium 4.5 Chloride 99 Carbon Dioxide 18 L Anion Gap 16 BUN 12 Creatinine 0.82 Est GFR ( Amer) > 60 Est GFR (Non-Af Amer) > 60 Glucose 190 H Calcium 10.2 Magnesium 1.7 Impressions: Gastric Emptying Nuclear Medicine 02/19/18 08:30 IMPRESSION: NORMAL GASTRIC EMPTYING. Qualifiers - * PATIENT BEING DISCHARGED WITH ANY OF THE FOLLOWING DIAGNOSIS: No
[2018-02-22] MEDS ORDERED: CLONIDINE 0.2 MG/24 HR PATCH.TDWK TD SCH (10:00)
== END 2018-02-19 17:09 | disposition home or self-care (01) | DRG 639 ==
LOC: ER 03:48 → EH 08:40 → 3N 16:02
PROVIDERS: ADMIT Emergency Medicine; ATTEND Emergency Medicine
DX: E10.10 Type 1 diabetes mellitus with ketoacidosis without coma (principal); I10 Essential (primary) hypertension; E78.5 Hyperlipidemia, unspecified; K21.9 Gastro-esophageal reflux disease without esophagitis; F31.9 Bipolar disorder, unspecified; Z83.3 Family history of diabetes mellitus; Z79.4 Long term (current) use of insulin; Z86.14 Personal history of Methicillin resistant Staphylococcus aureus infection; Z90.49 Acquired absence of other specified parts of digestive tract; E86.0 Dehydration; Z91.14 Patient's other noncompliance with medication regimen; R10.9 Unspecified abdominal pain
CPT/HCPCS: 36415; 78264; 80048; 80053; 81001; 82803; 82962; 83036; 83690; 83735; 84443; 84703; 85025; 93005; 93010; 96361; 96372; 96374; 99291; A9541; J0360; J1200; J1630; J1650; J1815; J2300; J2550; J3480; J3490; S0164

== ENCOUNTER 2018-02-21 08:38 | Emergency (ER) | payer MEDICARE, MEDICAID ==
[2018-02-21] MEDS ORDERED: NORMAL SALINE 1000 ML 1,000 ML IV ONE (09:35)
[2018-02-21] MEDS ORDERED: ONDANSETRON HCL INJ/PF 4 MG/2 ML SDV IV ONE (09:35)
[2018-02-21] MEDS ORDERED: NITROGLYCERIN 2% OINTMENT 1 GM PACKET TP ONE (09:36)
--- NOTE | 2018-02-21 09:37 | ER Document Report ---
ED Medical Screen (RME) - General Chief Complaint: Abdominal Pain Stated Complaint: ABDOMINAL PAIN Time Seen by Provider: 02/21/18 09:34 Notes: 67 years old female presents today with abdominal pain. She was recently admitted fully evaluated and discharged home on gabapentin. Returns here with no improvement since yesterday the pain is increasing intensity to the point that she could not tolerate this morning therefore presented to the ED. Diffuse abdominal pain around the mid abdominal region. Associated with slight nausea no vomiting. Denies any diarrhea or constipation. Denies any fever chills or other constitutional symptoms. Known diabetic and hypertension. Gastroparesis was ruled out during the last admission. On examination-on moderate to severe abdominal discomfort and pain. I placed her on nitroglycerin paste hoping that this could be due to mesenteric ischemia TRAVEL OUTSIDE OF THE [place] IN LAST 30 DAYS: No - Related Data Allergies/Adverse Reactions: metoclopramide HCl [From Reglan] Allergy (Unknown, Verified 02/21/18 08:43) Past Medical History - Social History Frequency of alcohol use: None Drug Abuse: None Family history: DM, Hypertension - Past Medical History Cardiac Medical History: Reports: Hx Hypercholesterolemia, Hx Hypertension Endocrine Medical History: Reports: Hx Diabetes Mellitus Type 1, Hx Diabetes Mellitus Type 2 Renal/ Medical History: Reports: Hx Renal Insufficiency. Denies: Hx Peritoneal Dialysis GI Medical History: Reports: Hx Gastroesophageal Reflux Disease Musculoskeltal Medical History: Reports Hx Arthritis - Hand Skin Medical History: Reports Hx Eczema Psychiatric Medical History: Reports: Hx Anxiety, Hx Bipolar Disorder, Hx Depression Infectious Medical History: Reports: Hx MRSA Past Surgical History: Reports: Hx Cholecystectomy - Immunizations Immunizations up to date: Yes Hx Diphtheria, Pertussis, Tetanus Vaccination: Yes - unknown History of Influenza Vaccine for 02/2017 - 07/2017 Season: No Physical Exam - Vital signs Vitals: Temp Pulse Resp BP Pulse Ox 99.2 F 129 H 20 157/105 H 99 02/21/18 08:55 02/21/18 08:55 02/21/18 08:55 02/21/18 08:55 02/21/18 08:55 Course - Vital Signs Vital signs: Temp Pulse Resp BP Pulse Ox 99.2 F 129 H 20 157/105 H 99 02/21/18 08:55 02/21/18 08:55 02/21/18 08:55 02/21/18 08:55 02/21/18 08:55 Doctor's Discharge - Discharge Referrals: GLEN MCGRATH PA-C [Primary Care Provider] - Follow up as needed
--- NOTE | 2018-02-21 09:46 | ER Document Report ---
ED GI/ - General Chief Complaint: Abdominal Pain Stated Complaint: ABDOMINAL PAIN Time Seen by Provider: 02/21/18 09:34 Notes: Patient is a 42 year old female well known to the emergency department today with diabetes type 1, HTN, hyperlipidemia, GERD, anxiety, bipolar disorder, with a history of gastroparesis and chronic abdominal pain presents to the emergency department complaining of abdominal pain and nausea onset yesterday. She had an emptying study performed earlier this month that was normal. She has not followed up with her GI doctor at [facility]. Denies fevers, urinary symptoms or back pain. TRAVEL OUTSIDE OF THE [place] IN LAST 30 DAYS: No - Related Data Allergies/Adverse Reactions: metoclopramide HCl [From Reglan] Allergy (Unknown, Verified 02/21/18 08:43) Past Medical History - General Information source: Patient - Social History Smoking Status: Never Smoker Frequency of alcohol use: None Drug Abuse: None Family History: DM, Hypertension Patient has suicidal ideation: No Patient has homicidal ideation: No - Past Medical History Cardiac Medical History: Reports: Hx Hypercholesterolemia, Hx Hypertension Endocrine Medical History: Reports: Hx Diabetes Mellitus Type 1, Hx Diabetes Mellitus Type 2 Renal/ Medical History: Reports: Hx Renal Insufficiency. Denies: Hx Peritoneal Dialysis GI Medical History: Reports: Hx Gastroesophageal Reflux Disease Musculoskeletal Medical History: Reports Hx Arthritis - Hand Skin Medical History: Reports Hx Eczema Psychiatric Medical History: Reports: Hx Anxiety, Hx Bipolar Disorder, Hx Depression Infectious Medical History: Reports: Hx MRSA Past Surgical History: Reports: Hx Cholecystectomy - Immunizations Immunizations up to date: Yes Hx Diphtheria, Pertussis, Tetanus Vaccination: Yes - unknown Hx Pneumococcal Vaccination: 05/04/10 Review of Systems - Review of Systems Notes: REVIEW OF SYSTEMS: CONSTITUTIONAL: -fevers, -chills EENT: -eye pain, -difficulty swallowing, -nasal congestion CARDIOVASCULAR: -chest pain, -syncope. RESPIRATORY: -cough, -SOB GASTROINTESTINAL: +abdominal pain, +nausea, -vomiting, -diarrhea GENITOURINARY: -dysuria, -hematuria MUSCULOSKELETAL: -back pain, -neck pain SKIN: -rash or skin lesions. HEMATOLOGIC: -easy bruising or bleeding. LYMPHATIC: -swollen, enlarged glands. NEUROLOGICAL: -altered mental status or loss of consciousness, -headache, - neurologic symptoms PSYCHIATRIC: -anxiety, -depression. ALL OTHER SYSTEMS REVIEWED AND NEGATIVE. Physical Exam - Vital signs Vitals: Temp Pulse Resp BP Pulse Ox 99.2 F 129 H 20 157/105 H 99 02/21/18 08:55 02/21/18 08:55 02/21/18 08:55 02/21/18 08:55 02/21/18 08:55 - Notes Notes: PHYSICAL EXAMINATION: GENERAL: Tearful. HEAD: Atraumatic, normocephalic. EYES: Pupils equal round and reactive to light, extraocular movements intact, sclera anicteric, conjunctiva are normal. ENT: nares patent, oropharynx clear without exudates. Moist mucous membranes. NECK: Normal range of motion, supple without lymphadenopathy LUNGS: Breath sounds clear to auscultation bilaterally and equal. No wheezes rales or rhonchi. HEART: Tachycardia, regular rhythm. ABDOMEN: Soft, nontender on distraction, tenderness to light palpation when not distracted, normoactive bowel sounds. No guarding, no rebound. No masses appreciated. EXTREMITIES: Normal range of motion, no pitting or edema. No cyanosis. NEUROLOGICAL: Cranial nerves grossly intact. Normal speech, normal gait. Normal sensory and motor exams. SKIN: Warm, Dry, normal turgor, no rashes or lesions noted. Course - Re-evaluation Re-evalutation: Patient's abdominal pain and nausea resolved after Haldol. Her blood work is unremarkable today and a repeat abdominal exam is completely nontender. No peritoneal signs. Looking through prior records, her abdominal pain appears chronic in nature. Her initial tachycardia improved after IV fluids and nausea control, she still remains slightly tachycardic at 106 on discharge, which is her baseline. Patient given strict return precautions and she understands. She will follow-up with her GI doctor at [facility]. - Vital Signs Vital signs: Temp Pulse Resp BP Pulse Ox 97.9 F 109 H 16 145/91 H 100 02/21/18 14:46 02/21/18 14:46 02/21/18 14:46 02/21/18 14:46 02/21/18 14:46 - Laboratory Result Diagrams: 02/21/18 10:35 02/21/18 10:35 Laboratory results interpreted by me: 02/21/18 02/21/18 02/21/18 09:00 10:35 10:35 Plt Count 482 H VBG pCO2 Sodium 135.1 L Chloride 96 L Est GFR (Non-Af Amer) 58 L Glucose 245 H Calcium 10.6 H Urine Protein 30 H Urine Glucose (UA) >=500 H Urine Blood LARGE H Ur Leukocyte Esterase TRACE H 02/21/18 10:35 Plt Count VBG pCO2 33.2 L Sodium Chloride Est GFR (Non-Af Amer) Glucose Calcium Urine Protein Urine Glucose (UA) Urine Blood Ur Leukocyte Esterase Discharge - Discharge Clinical Impression: Chronic abdominal pain Condition: Stable Disposition: HOME, SELF-CARE Additional Instructions: ABDOMINAL PAIN: There are many causes of abdominal pain. Pain can mean a serious problem requiring surgery (such as appendicitis). It can also be an innocent problem that goes away on its own (such as a viral infection). Often, time must pass to determine the cause of pain. The physician does not feel that hospitalization is necessary, at present. Things may change within the next 24 hours. Call the doctor or come back for re- examination if any problems occur, such as: (1) Pain that becomes more severe, steady, or becomes concentrated in one specific area. Also, pain that is more severe with movement or coughing. (2) Vomiting that persists or becomes more frequent. (3) Blood in the vomitus, urine, or bowel movements. Blood in the stool may have a tarry or black appearance. (4) Shaking chills or fever greater than 100 degrees F. (5) The abdomen becomes more distended or swollen. (6) Bowel movements cease. (7) Failure to improve as expected. NORMAL EXAM AND WORKUP: At this time, your examination and workup show no significant abnormality. No significant abnormal physical findings are noted. All laboratory, EKG, and imaging (x-ray, CT scans, ultrasound) studies that were ordered show no significant abnormality. Although your examination and all studies that were ordered showed no significant abnormal finding, there are no examinations and no studies that are 100% accurate. There is always the possibility that some abnormality could exist and not be detected with physical examination or within the limits and capabilities of laboratory and other studies. You should return or follow up as you were instructed on your visit today for further evaluation if your symptoms do not resolve. FOLLOW-UP CARE: If you have been referred to a physician for follow-up care, call the physician s office for an appointment as you were instructed or within the next two days. If you experience worsening or a significant change in your symptoms, notify the physician immediately or return to the Emergency Department at any time for re-evaluation. Forms: Elevated Blood Pressure Referrals: GLEN MCGRATH PA-C [Primary Care Provider] - Follow up as needed GENIE GILLIAM MD [ACTIVE STAFF] - Follow up as needed
[2018-02-21] MEDS ORDERED: HALOPERIDOL LACTATE INJ 5 MG/1 ML VIAL IV ONE (09:57)
--- NOTE | 2018-02-21 10:08 | RADIOLOGY REPORT (SQ) ---
EXAM DESCRIPTION: ACUTE ABDOMEN SERIES COMPLETED DATE/TIME: 02/21/2018 9:58 am REASON FOR STUDY: Acute abdominal pain acute COMPARISON: 06/29/2017. NUMBER OF VIEWS: Three views. TECHNIQUE: Frontal chest, supine abdomen and upright/decubitus abdomen radiographic images acquired. LIMITATIONS: None. FINDINGS: CHEST: Lungs clear of infiltrates. FREE AIR: None. No abnormal gas collections. BOWEL GAS PATTERN: Nonobstructive pattern. No dilated loops or air fluid levels. CALCIFICATIONS: No suspicious calcifications. HARDWARE: Surgical clips. SOFT TISSUES: No gross mass or suggestion of organomegaly. BONES: No acute fracture. No worrisome bone lesions. OTHER: No other significant finding. IMPRESSION: NO RADIOGRAPHIC EVIDENCE FOR ACUTE ABDOMINAL DISEASE. TECHNICAL DOCUMENTATION: JOB ID: [id number] [employer]- All Rights Reserved Reading location - IP/workstation name: [email or web address]
[2018-02-21 10:20] LABS: APPEARANCE,URINE SLIGHTLY-CLOUDY; BILIRUBIN,URINE NEGATIVE (NEGATIVE); COLOR,URINE YELLOW; GLUCOSE, URINE >=500 mg/dL (NEGATIVE); KETONES,URINE NEGATIVE (NEGATIVE); LEUKOCYTE ESTERASE,URINE TRACE (NEGATIVE); NITRITE,URINE NEGATIVE (NEGATIVE); PROTEIN,URINE 30 mg/dL (NEGATIVE); URINE SPECIFIC GRAVITY 1.025; UROBILINOGEN,URINE NEGATIVE mg/dL (<2.0)
[2018-02-21 10:30] LABS: URINE AMPHETAMINES SCREEN NEGATIVE; URINE BARBITURATES SCREEN NEGATIVE; URINE BENZODIAZEPINES SCREEN NEGATIVE; URINE COCAINE SCREEN NEGATIVE; URINE MARIJUANA (THC) SCREEN NEGATIVE; URINE METHADONE SCREEN NEGATIVE; URINE PHENCYCLIDINE SCREEN NEGATIVE
[2018-02-21 10:57] LABS: VENOUS BLOOD BASE EXCESS -2.2 mmol/L; VENOUS BLOOD HCO3 21.2 mmol/L (20-32); VENOUS BLOOD PCO2 33.2 mmHg (35-63); VENOUS BLOOD PH 7.42 (7.30-7.42)
[2018-02-21 11:10] LABS: ABSOLUTE BASOPHILS # (AUTO) 0.1 10^3/uL (0.0-0.2); ABSOLUTE LYMPHOCYTES (AUTO) 2.6 10^3/uL (0.5-4.7); ABSOLUTE NEUT (AUTO) 6.4 10^3/uL (1.7-8.2); BASOPHILS % (AUTO) 1.1 % (0-2); EOSINOPHILS % (AUTO) 0.2 % (0-6); HEMOGLOBIN 12.4 g/dL (12.0-15.5); LYMPHOCYTES % (AUTO) 25.4 % (13-45); MEAN CORPUSCULAR HEMOGLOBIN 29.4 pg (27.0-33.4); MEAN CORPUSCULAR HGB CONC 34.4 g/dL (32.0-36.0); MEAN CORPUSCULAR VOLUME 85 fl (80-97); MONOCYTES % (AUTO) 9.6 % (3-13); PLATELET COUNT 482 10^3/uL (150-450); RED BLOOD COUNT 4.22 10^6/uL (3.72-5.28); RED CELL DISTRIBUTION WIDTH 13.5 % (11.5-14.0); SEGMENTED NEUTROPHILS % (AUTO) 63.7 % (42-78); TOTAL CELLS COUNTED % (AUTO) 100 %; WHITE BLOOD COUNT 10.1 10^3/uL (4.0-10.5)
[2018-02-21 11:39] LABS: ALANINE AMINOTRANSFERASE 27 U/L (9-52); ALBUMIN 4.7 g/dL (3.5-5.0); ALKALINE PHOSPHATASE 83 U/L (38-126); ANION GAP 17 (5-19); ASPARTATE AMINO TRANSFERASE 18 U/L (14-36); BILIRUBIN,DIRECT 0.3 mg/dL (0.0-0.4); BILIRUBIN,TOTAL 0.6 mg/dL (0.2-1.3); BLOOD UREA NITROGEN 14 mg/dL (7-20); CALCIUM 10.6 mg/dL (8.4-10.2); CARBON DIOXIDE 22 mmol/L (22-30); CHLORIDE 96 mmol/L (98-107); GLUCOSE 245 mg/dL (75-110); LIPASE 149.2 U/L (23-300); POTASSIUM 4.1 mmol/L (3.6-5.0); SODIUM 135.1 mmol/L (137-145)
[2018-02-21 14:46] VITALS: BP 145/91
--- NOTE | 2018-02-21 20:53 | EKG REPORT ---
SEVERITY:- ABNORMAL ECG - SINUS TACHYCARDIA TAQUERIA, CONSIDER BIATRIAL ABNORMALITIES PROBABLE LEFT VENTRICULAR HYPERTROPHY ABNORMAL T, CONSIDER ISCHEMIA, DIFFUSE LEADS : Confirmed by: Buffy Guajardo MD 21-Feb-2018 20:52:13
== END 2018-02-21 14:47 | disposition home or self-care (01) ==
LOC: ER 08:38
DX: G89.29 Other chronic pain (principal); R10.9 Unspecified abdominal pain; E10.9 Type 1 diabetes mellitus without complications; I10 Essential (primary) hypertension; E78.00 Pure hypercholesterolemia, unspecified; K21.9 Gastro-esophageal reflux disease without esophagitis; Z90.49 Acquired absence of other specified parts of digestive tract; Z86.14 Personal history of Methicillin resistant Staphylococcus aureus infection
CPT/HCPCS: 93005; 99284; 96361; 96374; 96375; 36415; 83690; 85025; 81025; 80053; 81001; 80307; 82803; 74022; 93010; J1630; J2405

== ENCOUNTER 2018-04-20 22:24 | Emergency (ER) | payer MEDICARE, MEDICAID ==
[2018-04-20] MEDS ORDERED: NORMAL SALINE 1000 ML 1,000 ML IV ONE (23:14)
[2018-04-20] MEDS ORDERED: HALOPERIDOL LACTATE INJ 5 MG/1 ML VIAL IM ONE (23:14)
--- NOTE | 2018-04-20 23:23 | ER Document Report ---
ED GI/ - General Chief Complaint: Abdominal Pain Stated Complaint: ABDOMINAL PAIN Time Seen by Provider: 04/20/18 23:04 Notes: Patient is a 43-year-old female with a hist this, cholecystectomy, chronic abdominal pain that comes to the emergency department for chief complaint of 2 days of worsening abdominal pain, she states that today she started vomiting, she reports vomiting 10 times. She denies hematemesis, fever, she reports abdominal pain is general. She denies flank pain, chest pain, shortness of breath. She states she has been taking her insulin. She reports that she had a recent gastric emptying study and it reported that she did not have gastroparesis. She has not had an endoscopy performed. TRAVEL OUTSIDE OF THE [place] IN LAST 30 DAYS: No - Related Data Allergies/Adverse Reactions: metoclopramide HCl [From [employer]] Allergy (Unknown, Verified 02/21/18 08:43) Past Medical History - General Information source: Patient - Social History Smoking Status: Never Smoker Frequency of alcohol use: None Drug Abuse: None Lives with: Family Family History: DM, Hypertension - Past Medical History Cardiac Medical History: Reports: Hx Hypercholesterolemia, Hx Hypertension Endocrine Medical History: Reports: Hx Diabetes Mellitus Type 1, Hx Diabetes Mellitus Type 2 Renal/ Medical History: Reports: Hx Renal Insufficiency. Denies: Hx Peritoneal Dialysis GI Medical History: Reports: Hx Gastroesophageal Reflux Disease Musculoskeletal Medical History: Reports Hx Arthritis - Hand Skin Medical History: Reports Hx Eczema Psychiatric Medical History: Reports: Hx Anxiety, Hx Bipolar Disorder, Hx Depression Infectious Medical History: Reports: Hx MRSA Past Surgical History: Reports: Hx Cholecystectomy - Immunizations Immunizations up to date: Yes Hx Diphtheria, Pertussis, Tetanus Vaccination: Yes - unknown Hx Pneumococcal Vaccination: 05/04/10 Review of Systems - Review of Systems Constitutional: No symptoms reported EENT: No symptoms reported Cardiovascular: No symptoms reported Respiratory: No symptoms reported Gastrointestinal: See HPI Genitourinary: No symptoms reported Female Genitourinary: No symptoms reported Musculoskeletal: No symptoms reported Skin: No symptoms reported Hematologic/Lymphatic: No symptoms reported Neurological/Psychological: No symptoms reported Physical Exam - Vital signs Vitals: Temp Pulse Resp BP Pulse Ox 98.2 F 126 H 22 H 149/108 H 96 04/20/18 22:50 04/20/18 22:50 04/20/18 22:50 04/20/18 22:50 04/20/18 22:50 - Notes Notes: GENERAL: Alert, restless HEAD: Normocephalic, atraumatic. EYES: Pupils equal, round, and reactive to light. Extraocular movements intact. ENT: Oral mucosa dry, tongue midline. Oropharynx unremarkable. Airway patent. Nares patent, no nasal septal hematoma, TM's intact. NECK: Full range of motion. Supple. Trachea midline. LUNGS: Clear to auscultation bilaterally, no wheezes, rales, or rhonchi. No respiratory distress. HEART: Tachycardic, normal rhythm. No murmur ABDOMEN: Soft, non-tender. Non-distended. Bowel sounds present in all 4 quadrants. GENITOURINARY: Deferred EXTREMITIES: Moves all 4 extremities spontaneously. No edema, normal radial and dorsalis pedis pulses bilaterally. No cyanosis. BACK: no cervical, thoracic, lumbar midline tenderness. No saddle anesthesia, normal distal neurovascular exam. NEUROLOGICAL: Alert and oriented x3. Normal speech. [cranial nerves II through XII grossly intact]. PSYCH: Anxious and agitated SKIN: Warm, dry, normal turgor. No rashes or lesions noted. Course - Re-evaluation Re-evalutation: Patient tachycardic, reportedly vomiting multiple times, she does have dry mucous membranes. Her abdomen is actually quite unremarkable with no noted tenderness, guarding, rigidity, or rebound tenderness. No fever. 04/21/18 00:55 Patient initially crying and rhythmically swinging her upper body around while sitting. She can voluntarily stop doing so however. Patient was given IM Haldol, reevaluated at this time and she is sleeping peacefully. Still have pending labs. 04/21/18 01:20 Patient was asked to provide a urinalysis, patient got up, went to the bathroom , did not provide one. CBC shows mild leukocytosis, chemistry shows low bicarbonate at 19, normal anion gap, blood glucose is 360, venous blood gas is normal with no acidosis. 04/21/18 Patient is improved now. I discussed with her at bedside. She had again vomited before the Haldol. She now tolerated medications and fluids p.o. On evaluation at bedside patient's heart rate is 103 which is significantly improved. Urinalysis was obtained, shows ketones. Patient has ambulated out to the nursing station a couple of times. She appears much improved. Discussed with Dr. Mccormick. Patient has low bicarbonate but this was treated with IV normal saline boluses, insulin. There are ketones in the urine but the venous blood gas is normal. Patient is tolerating p.o. Discussed with patient too. Patient will be discharged with medications, referred to gastroenterology, discussed return precautions. Patient is hypertensive on my reevaluation, she is he is on oral medication and clonidine patch, I offered a clonidine patch but patient declined. - Vital Signs Vital signs: Temp Pulse Resp BP Pulse Ox 98.2 F 111 H 18 194/108 H 98 04/21/18 04:02 04/21/18 04:02 04/21/18 04:02 04/21/18 04:02 04/21/18 04:02 - Laboratory Result Diagrams: 04/20/18 23:55 04/20/18 23:55 Laboratory results interpreted by me: 04/20/18 04/20/18 04/21/18 23:55 23:55 01:36 WBC 12.1 H MCH 26.6 L RDW 14.5 H Seg Neutrophils % 79.8 H Absolute Neutrophils 9.6 H Carbon Dioxide 19 L Glucose 360 H POC Glucose Urine Protein 30 H Urine Glucose (UA) >=500 H Urine Ketones 20 H Urine Blood LARGE H 04/21/18 04/21/18 01:58 03:37 WBC MCH RDW Seg Neutrophils % Absolute Neutrophils Carbon Dioxide Glucose POC Glucose 301 H 275 H Urine Protein Urine Glucose (UA) Urine Ketones Urine Blood Discharge - Discharge Clinical Impression: Dehydration, Hyperglycemia Vomiting Qualifiers: Vomiting type: unspecified Vomiting Intractability: non-intractable Nausea presence: with nausea Qualified Code(s): R11.2 - Nausea with vomiting, unspecified Condition: Stable Disposition: HOME, SELF-CARE Additional Instructions: You have been evaluated and treated for dehydration, high blood sugar. Continue treatment for nausea with prescribed medications, take the Carafate and famotidine for inflammation of the upper abdominal tract, please follow-up with the gastroneurology referral for additional evaluation and management including possible endoscopy. Return if you worsen including vomiting blood, black stools, uncontrolled vomiting, fever of 100.4 or greater, or any other concerning or worsening symptoms. Prescriptions: Famotidine [Pepcid 20 mg Tablet] 20 mg PO BID #20 tablet Promethazine HCl [Phenergan 25 mg Tablet] 25 mg PO Q6H PRN #20 tablet PRN Reason: Sucralfate [Carafate 1 gm Tablet] 1 gm PO QID #20 tablet Referrals: GLEN MCGRATH PA-C [Primary Care Provider] - Follow up as needed GENIE GILLIAM MD [ACTIVE STAFF] - Follow up as needed
[2018-04-21 00:14] LABS: ABSOLUTE BASOPHILS # (AUTO) 0.1 10^3/uL (0.0-0.2); ABSOLUTE LYMPHOCYTES (AUTO) 1.6 10^3/uL (0.5-4.7); ABSOLUTE MONOCYTES (AUTO) 0.7 10^3/uL (0.1-1.4); ABSOLUTE NEUT (AUTO) 9.6 10^3/uL (1.7-8.2); BASOPHILS % (AUTO) 0.8 % (0-2); EOSINOPHILS % (AUTO) 0.1 % (0-6); HEMATOCRIT 36.5 % (36.0-47.0); HEMOGLOBIN 12.1 g/dL (12.0-15.5); LYMPHOCYTES % (AUTO) 13.4 % (13-45); MEAN CORPUSCULAR HEMOGLOBIN 26.6 pg (27.0-33.4); MEAN CORPUSCULAR HGB CONC 33.1 g/dL (32.0-36.0); MEAN CORPUSCULAR VOLUME 80 fl (80-97); MONOCYTES % (AUTO) 5.9 % (3-13); PLATELET COUNT 391 10^3/uL (150-450); RED BLOOD COUNT 4.54 10^6/uL (3.72-5.28); RED CELL DISTRIBUTION WIDTH 14.5 % (11.5-14.0); SEGMENTED NEUTROPHILS % (AUTO) 79.8 % (42-78); TOTAL CELLS COUNTED % (AUTO) 100 %; WHITE BLOOD COUNT 12.1 10^3/uL (4.0-10.5)
[2018-04-21 00:28] LABS: ALANINE AMINOTRANSFERASE 16 U/L (9-52); ALBUMIN 4.4 g/dL (3.5-5.0); ALKALINE PHOSPHATASE 112 U/L (38-126); ANION GAP 19 (5-19); ASPARTATE AMINO TRANSFERASE 22 U/L (14-36); BILIRUBIN,DIRECT 0.2 mg/dL (0.0-0.4); BILIRUBIN,TOTAL 0.7 mg/dL (0.2-1.3); BLOOD UREA NITROGEN 15 mg/dL (7-20); CARBON DIOXIDE 19 mmol/L (22-30); CHLORIDE 103 mmol/L (98-107); GLUCOSE 360 mg/dL (75-110); LIPASE 132.1 U/L (23-300); POTASSIUM 3.9 mmol/L (3.6-5.0); SODIUM 140.9 mmol/L (137-145); TOTAL PROTEIN 8.2 g/dL (6.3-8.2)
[2018-04-21 01:04] LABS: VENOUS BLOOD BASE EXCESS -3.1 mmol/L; VENOUS BLOOD HCO3 21.7 mmol/L (20-32); VENOUS BLOOD PH 7.37 (7.30-7.42)
[2018-04-21] MEDS ORDERED: NORMAL SALINE 1000 ML 1,000 ML IV ONE ×2 (01:23)
[2018-04-21 01:56] LABS: APPEARANCE,URINE SLIGHTLY-CLOUDY; BILIRUBIN,URINE NEGATIVE (NEGATIVE); COLOR,URINE YELLOW; GLUCOSE, URINE >=500 mg/dL (NEGATIVE); KETONES,URINE 20 mg/dL (NEGATIVE); LEUKOCYTE ESTERASE,URINE NEGATIVE (NEGATIVE); NITRITE,URINE NEGATIVE (NEGATIVE); PROTEIN,URINE 30 mg/dL (NEGATIVE); URINE SPECIFIC GRAVITY 1.015; UROBILINOGEN,URINE NEGATIVE mg/dL (<2.0)
[2018-04-21] MEDS ORDERED: INSULIN REG, HUMAN 100 UNIT/ML 3 ML VIAL (PYX) SUBCUT ONE (02:00)
[2018-04-21] MEDS ORDERED: PROMETHAZINE HCL 25 MG TABLET PO ONE (02:01)
[2018-04-21] MEDS ORDERED: FAMOTIDINE 20 MG TABLET PO ONE (02:02)
[2018-04-21] MEDS ORDERED: LORAZEPAM 1 MG TABLET PO ONE (03:39)
[2018-04-21] MEDS ORDERED: SUCRALFATE 1 GM TABLET PO ONE (03:39)
[2018-04-21 04:23] VITALS: BP 194/108
--- NOTE | 2018-04-21 07:37 | EKG REPORT ---
SEVERITY:- BORDERLINE ECG - SINUS TACHYCARDIA BORDERLINE T ABNORMALITIES, DIFFUSE LEADS LVH : Confirmed by: Eduardo Novak MD 21-Apr-2018 07:36:47
== END 2018-04-21 04:39 | disposition home or self-care (01) ==
LOC: ER 22:24
DX: R11.2 Nausea with vomiting, unspecified (principal); E86.0 Dehydration; E11.65 Type 2 diabetes mellitus with hyperglycemia; Z79.4 Long term (current) use of insulin; R10.84 Generalized abdominal pain; R00.0 Tachycardia, unspecified; D72.829 Elevated white blood cell count, unspecified; I10 Essential (primary) hypertension; Z90.49 Acquired absence of other specified parts of digestive tract; Z87.19 Personal history of other diseases of the digestive system; Z88.8 Allergy status to other drugs, medicaments and biological substances; Z79.899 Other long term (current) drug therapy
CPT/HCPCS: 93005; 99284; 96372; 96360; 96361; 36415; 82962; 83690; 85025; 81025; 80053; 81001; 82803; 93010; A9270 ×5; J1630; J7030; J1815

== ENCOUNTER 2018-08-15 15:11 | Inpatient (IN) | payer MEDICARE, MEDICAID ==
[2018-08-15] MEDS ORDERED: NORMAL SALINE 1000 ML 1,000 ML IV ONE ×3 (15:31→18:15)
[2018-08-15] MEDS ORDERED: HALOPERIDOL LACTATE INJ 5 MG/1 ML VIAL IM ONE (15:31)
--- NOTE | 2018-08-15 15:38 | ER Document Report ---
ED GI/ - General Chief Complaint: Abdominal Pain Stated Complaint: ABDOMINAL PAIN Time Seen by Provider: 08/15/18 15:25 TRAVEL OUTSIDE OF THE [place] IN LAST 30 DAYS: No - HPI Patient complains to provider of: Abdominal pain, Vomiting Onset: Just prior to arrival Timing/Duration: Intermittent, Persistent, Waxing and waning Quality of pain: Achy, Cramping Severity at maximum: Moderate Severity in ED: Moderate Associated symptoms: Nausea, Vomiting Notes: 08/15/18 15:37 Patient is a 43-year-old female who is well-known to this emergency room for cyclic vomiting, gastroparesis, secondary to diabetes, presenting today complaining of nausea vomiting pain, denies fever, denies questionable food consumption, reports symptoms typical of her previous gastroparesis episodes - Related Data Allergies/Adverse Reactions: metoclopramide HCl [From Reglan] Allergy (Unknown, Verified 08/15/18 15:12) Past Medical History - General Information source: Patient - Social History Smoking Status: Unknown if Ever Smoked Family History: DM, Hypertension - Past Medical History Cardiac Medical History: Reports: Hx Hypercholesterolemia, Hx Hypertension Endocrine Medical History: Reports: Hx Diabetes Mellitus Type 1, Hx Diabetes Mellitus Type 2 Renal/ Medical History: Reports: Hx Renal Insufficiency. Denies: Hx Peritoneal Dialysis GI Medical History: Reports: Hx Gastroesophageal Reflux Disease Musculoskeletal Medical History: Reports Hx Arthritis - Hand Skin Medical History: Reports Hx Eczema Psychiatric Medical History: Reports: Hx Anxiety, Hx Bipolar Disorder, Hx De pression Infectious Medical History: Reports: Hx MRSA Past Surgical History: Reports: Hx Cholecystectomy - Immunizations Immunizations up to date: Yes Hx Diphtheria, Pertussis, Tetanus Vaccination: Yes - unknown Hx Pneumococcal Vaccination: 05/04/10 Review of Systems - Review of Systems Constitutional: No symptoms reported EENT: No symptoms reported Cardiovascular: No symptoms reported Respiratory: No symptoms reported Gastrointestinal: See HPI Genitourinary: No symptoms reported Female Genitourinary: No symptoms reported Musculoskeletal: No symptoms reported Skin: No symptoms reported Hematologic/Lymphatic: No symptoms reported Neurological/Psychological: No symptoms reported -: Yes All other systems reviewed and negative Physical Exam - Vital signs Vitals: Temp Pulse Resp BP Pulse Ox 98.1 F 126 H 14 128/88 H 98 08/15/18 19:37 08/15/18 19:37 08/15/18 19:37 08/15/18 19:37 08/15/18 19:37 Interpretation: Normal - General General appearance: Alert In distress: Mild - Patient writhing around on the floor and in the bed, rocking and moaning in pain - HEENT Head: Normocephalic, Atraumatic Eyes: Normal Pupils: PERRL - Respiratory Respiratory status: No respiratory distress Chest status: Nontender Breath sounds: Normal Chest palpation: Normal - Cardiovascular Rhythm: Regular Heart sounds: Normal auscultation Murmur: No - Abdominal Inspection: Obese Distension: No distension Bowel sounds: Normal Tenderness: Nontender Organomegaly: No organomegaly - Back Back: Normal, Nontender - Extremities General upper extremity: Normal inspection, Nontender, Normal color, Normal ROM, Normal temperature General lower extremity: Normal inspection, Nontender, Normal color, Normal ROM, Normal temperature, Normal weight bearing. No: Ander's sign - Neurological Neuro grossly intact: Yes Cognition: Normal Orientation: AAOx4 [place] Coma Scale Eye Opening: Spontaneous [place] Coma Scale Verbal: Oriented [place] Coma Scale Motor: Obeys Commands Zaina Coma Scale Total: 15 Speech: Normal Motor strength normal: LUE, RUE, LLE, RLE Sensory: Normal - Psychological Associated symptoms: Normal affect, Normal mood - Skin Skin Temperature: Warm Skin Moisture: Dry Skin Color: Normal Course - Re-evaluation Re-evalutation: 08/15/18 22:05 Patient limb findings consistent with mild diabetic ketoacidosis, therefore insulin drip was ordered, discussed with hospitalist who agrees to admit for further evaluation and treatment - Vital Signs Vital signs: Temp Pulse Resp BP Pulse Ox 98.4 F 110 H 18 203/95 H 97 08/15/18 19:43 08/15/18 19:43 08/15/18 19:43 08/15/18 19:43 08/15/18 19:43 - Laboratory Result Diagrams: 08/15/18 16:04 08/15/18 16:04 Laboratory results interpreted by me: 08/15/18 08/15/18 08/15/18 16:04 16:04 16:04 WBC 14.5 H RBC 5.35 H MCV 79 L MCH 26.1 L RDW 16.2 H Seg Neutrophils % 85.7 H Lymphocytes % 9.3 L Absolute Neutrophils 12.4 H VBG pCO2 VBG HCO3 Carbon Dioxide 17 L Anion Gap 23 H Est GFR (Non-Af Amer) 50 L Glucose 432 H* Serum Osmolality 306 H Calcium 10.8 H AST 37 H Alkaline Phosphatase 151 H Total Protein 10.4 H Albumin 5.2 H Urine Protein Urine Glucose (UA) Urine Ketones Urine Blood Ur Leukocyte Esterase 08/15/18 08/15/18 17:45 20:24 WBC RBC MCV MCH RDW Seg Neutrophils % Lymphocytes % Absolute Neutrophils VBG pCO2 31.7 L VBG HCO3 16.3 L Carbon Dioxide Anion Gap Est GFR (Non-Af Amer) Glucose Serum Osmolality Calcium AST Alkaline Phosphatase Total Protein Albumin Urine Protein 100 H Urine Glucose (UA) >=500 H Urine Ketones 80 H Urine Blood LARGE H Ur Leukocyte Esterase MODERATE H Critical Care Note - Critical Care Note Total time excluding time spent on procedures (mins): 40 Comments: Patient arrived writhing in pain, tachycardia, diagnosed with diabetic ketoacidosis Discharge - Discharge Clinical Impression: Gastroparesis due to DM DKA (diabetic ketoacidoses) Qualifiers: Diabetes mellitus type: other specified (including STEPHANIE) Diabetes mellitus complication detail: without coma Qualified Code(s): E13.10 - Other specified diabetes mellitus with ketoacidosis without coma Condition: Fair Disposition: ADMITTED INPATIENT Admitting Provider: Hospitalist Unit Admitted: [facility]
[2018-08-15 16:19] LABS: ABSOLUTE BASOPHILS # (AUTO) 0.1 10^3/uL (0.0-0.2); ABSOLUTE LYMPHOCYTES (AUTO) 1.4 10^3/uL (0.5-4.7); ABSOLUTE MONOCYTES (AUTO) 0.7 10^3/uL (0.1-1.4); ABSOLUTE NEUT (AUTO) 12.4 10^3/uL (1.7-8.2); BASOPHILS % (AUTO) 0.5 % (0-2); HEMATOCRIT 42.3 % (36.0-47.0); HEMOGLOBIN 13.9 g/dL (12.0-15.5); LYMPHOCYTES % (AUTO) 9.3 % (13-45); MEAN CORPUSCULAR HEMOGLOBIN 26.1 pg (27.0-33.4); MEAN CORPUSCULAR VOLUME 79 fl (80-97); MONOCYTES % (AUTO) 4.5 % (3-13); PLATELET COUNT 415 10^3/uL (150-450); RED BLOOD COUNT 5.35 10^6/uL (3.72-5.28); RED CELL DISTRIBUTION WIDTH 16.2 % (11.5-14.0); SEGMENTED NEUTROPHILS % (AUTO) 85.7 % (42-78); TOTAL CELLS COUNTED % (AUTO) 100 %; WHITE BLOOD COUNT 14.5 10^3/uL (4.0-10.5)
[2018-08-15 16:37] LABS: ALANINE AMINOTRANSFERASE 24 U/L (9-52); ALBUMIN 5.2 g/dL (3.5-5.0); ALKALINE PHOSPHATASE 151 U/L (38-126); ASPARTATE AMINO TRANSFERASE 37 U/L (14-36); BILIRUBIN,DIRECT 0.2 mg/dL (0.0-0.4); BILIRUBIN,TOTAL 0.7 mg/dL (0.2-1.3); BLOOD UREA NITROGEN 13 mg/dL (7-20); CALCIUM 10.8 mg/dL (8.4-10.2); LIPASE 148.1 U/L (23-300); POTASSIUM 4.3 mmol/L (3.6-5.0); TOTAL PROTEIN 10.4 g/dL (6.3-8.2)
[2018-08-15 16:42] LABS: CARBON DIOXIDE 17 mmol/L (22-30); CHLORIDE 100 mmol/L (98-107); SODIUM 140.1 mmol/L (137-145)
[2018-08-15 16:44] LABS: ANION GAP 23 (5-19)
[2018-08-15 16:46] LABS: GLUCOSE 432 mg/dL (75-110)
[2018-08-15 18:12] LABS: APPEARANCE,URINE CLOUDY; BILIRUBIN,URINE NEGATIVE (NEGATIVE); COLOR,URINE YELLOW; GLUCOSE, URINE >=500 mg/dL (NEGATIVE); KETONES,URINE 80 mg/dL (NEGATIVE); LEUKOCYTE ESTERASE,URINE MODERATE (NEGATIVE); NITRITE,URINE NEGATIVE (NEGATIVE); PROTEIN,URINE 100 mg/dL (NEGATIVE); URINE SPECIFIC GRAVITY 1.026; UROBILINOGEN,URINE NEGATIVE mg/dL (<2.0)
[2018-08-15] MEDS ORDERED: CEFTRIAXONE INJ 1000 MG VIAL IV ONE (18:15)
[2018-08-15 20:39] LABS: VENOUS BLOOD BASE EXCESS -8.4 mmol/L; VENOUS BLOOD HCO3 16.3 mmol/L (20-32); VENOUS BLOOD PCO2 31.7 mmHg (35-63); VENOUS BLOOD PH 7.33 (7.30-7.42)
[2018-08-15] MEDS ORDERED: INSULIN REG, HUMAN 100 UNIT/ML 3 ML VIAL (PYX) IV ONE (21:45)
[2018-08-15] MEDS ORDERED: ACETAMINOPHEN 325 MG TABLET PO PRN (21:53)
[2018-08-15] MEDS ORDERED: GLUCAGON,HUMAN RECOMB 1 MG INJ IM PRN (21:59)
[2018-08-15] MEDS ORDERED: DEXTROSE 50%-WATER 25 GM/50 ML DISP.SYRIN IV PRN ×3 (21:59→22:06)
[2018-08-15] MEDS ORDERED: DEXTROSE 40% GEL 15 GM TUBE PO PRN ×4 (21:59→22:06)
[2018-08-15] MEDS ORDERED: NORMAL SALINE 100 ML with INSULIN REGULAR, HUMAN 100 UNIT IV PRN ×4 (22:01→22:04)
[2018-08-15] MEDS ORDERED: GLUCAGON,HUMAN RECOMB 1 MG INJ SUBCUT PRN (22:06)
--- NOTE | 2018-08-15 22:51 | PDOC H&P ---
History of Present Illness Admission Date/PCP: 08/15/18 21:51 GLEN MCGRATH PA-C Patient complains of: Intractable nausea and vomiting History of Present Illness: RUTH CA is a 43 year old -[place] Female with history of multiple medical problems that will be mentioned below who presented to the emergency room with acute onset of intractable nausea and vomiting since this morning with associated epigastric abdominal pain. She denies any fever or chills. She denies any bilious vomitus or hematemesis. No diarrhea or melena or bright red bleeding per rectum. Her blood glucose levels have been elevated. No cough or wheezing or hemoptysis. She has been having mild dysuria and urinary frequency without oliguria or hematuria or flank pain. Upon presentation to the emergency room her blood pressure was elevated 203/95 with a pulse of 110 respiratory rate of 18 and temperature of 98.4 with a pulse currently of 97% on room air. Her labs are remarkable for leukocytosis of 14.4 with neutrophil of 85.7. Her CO2 was 17 and anion gap of 23 with a blood glucose of 432 and alkaline phosphatase of 151. Her lipase levels was 148 and albumin level was 5.2 with total protein of 10.4. Urinalysis showed more than 500 glucose and 80 ketones with 100 protein, 104 WBCs, 13 RBCs and 2+ bacteria with many WBC clumps. The patient was ordered IV hydration with normal saline as well as IM Haldol as well as IV Rocephin for her UTI and IV insulin infusion. She will be admitted to an IMCU bed for further evaluation and management. Past Medical History Cardiac Medical History: Reports: Hyperlipidema, Hypertension Endocrine Medical History: Reports: Diabetes Mellitus Type 2 GI Medical History: Reports: Gastroesophageal Reflux Disease, Other - Diabetic gastroparesis Musculoskeltal Medical History: Reports: Arthritis - Hand Skin Medical History: Reports: Eczema Psychiatric Medical History: Reports: Bipolar Disorder, Depression Hematology: Reports: Anemia Infectious Medical History: Reports: Methicillin-Resistant Staph Aureus Past Surgical History Past Surgical History: Reports: Cholecystectomy Social History Smoking Status: Never Smoker Frequency of Alcohol Use: None Hx Recreational Drug Use: No Drugs: None Hx Prescription Drug Abuse: No Family History Family History: DM, Hypertension Parental Family History Reviewed: Yes Children Family History Reviewed: Yes Sibling(s) Family History Reviewed.: Yes Medication/Allergy Allergies/Adverse Reactions: metoclopramide HCl [From Reglan] Allergy (Unknown, Verified 08/15/18 15:12) Review of Systems Review of Systems: As per history of present illness. All pertinent systems were reviewed above. Constitutional, HEENT, cardiovascular, respiratory, GI, , musculoskeletal, neuro, psychiatric, endocrine, integumentary and hematologic systems were reviewed and are otherwise negative/unremarkable except for positive findings mentioned above in the HPI. Physical Exam Vital Signs: Temp Pulse Resp BP Pulse Ox 98.4 F 110 H 18 203/95 H 97 08/15/18 19:43 08/15/18 19:43 08/15/18 19:43 08/15/18 19:43 08/15/18 19:43 Intake & Output 08/14/18 08/15/18 08/16/18 06:59 06:59 06:59 Intake Total 1000 Balance 1000 Weight 70.307 kg Exam: Generally: Obese middle-aged -[place] female in mild distress from pain Vital signs-as listed Head - atraumatic, normocephalic. Pupils - equal, round and reactive to light and accommodation. Extraocular movements are intact. No scleral icterus. Oropharynx -slightly dry mucous membranes and tongue. No pharyngeal erythema or exudate. Neck - supple. No JVD. Carotid pulses 2+ bilaterally. No carotid bruits. No palpable thyromegaly or lymphadenopathy. Cardiovascular - regular rate and rhythm. Normal S1 and S2. No murmurs, gallops or rubs. Lungs - clear to auscultation bilaterally. Abdomen - soft with minimal epigastric tenderness without rebound tenderness guarding or rigidity positive bowel sounds. No palpable organomegaly or masses. Extremities - no pitting edema, clubbing or cyanosis. Neuro - grossly non-focal. Skin - no rashes. Breast, pelvic and rectal - deferred Results Laboratory Results: 08/15/18 16:04 08/15/18 16:04 08/15/18 08/15/18 08/15/18 16:04 16:04 16:04 WBC 14.5 H RBC 5.35 H Hgb 13.9 Hct 42.3 MCV 79 L MCH 26.1 L MCHC 33.0 RDW 16.2 H Plt Count 415 Seg Neutrophils % 85.7 H Lymphocytes % 9.3 L Monocytes % 4.5 Eosinophils % 0.0 Basophils % 0.5 Absolute Neutrophils 12.4 H Absolute Lymphocytes 1.4 Absolute Monocytes 0.7 Absolute Eosinophils 0.0 Absolute Basophils 0.1 VBG pH VBG pCO2 VBG HCO3 VBG Base Excess Sodium 140.1 Potassium 4.3 Chloride 100 Carbon Dioxide 17 L Anion Gap 23 H BUN 13 Creatinine 1.18 Est GFR ( Amer) > 60 Est GFR (Non-Af Amer) 50 L Glucose 432 H* Serum Osmolality 306 H Calcium 10.8 H Total Bilirubin 0.7 AST 37 H ALT 24 Alkaline Phosphatase 151 H Total Protein 10.4 H Albumin 5.2 H Lipase 148.1 Urine Color Urine Appearance Urine pH Ur Specific [place] Urine Protein Urine Glucose (UA) Urine Ketones Urine Blood Urine Nitrite Ur Leukocyte Esterase Urine WBC (Auto) Urine RBC (Auto) 08/15/18 08/15/18 17:45 20:24 WBC RBC Hgb Hct MCV MCH MCHC RDW Plt Count Seg Neutrophils % Lymphocytes % Monocytes % Eosinophils % Basophils % Absolute Neutrophils Absolute Lymphocytes Absolute Monocytes Absolute Eosinophils Absolute Basophils VBG pH 7.33 VBG pCO2 31.7 L VBG HCO3 16.3 L VBG Base Excess -8.4 Sodium Potassium Chloride Carbon Dioxide Anion Gap BUN Creatinine Est GFR ( Amer) Est GFR (Non-Af Amer) Glucose Serum Osmolality Calcium Total Bilirubin AST ALT Alkaline Phosphatase Total Protein Albumin Lipase Urine Color YELLOW Urine Appearance CLOUDY Urine pH 5.0 Ur Specific [place] 1.026 Urine Protein 100 H Urine Glucose (UA) >=500 H Urine Ketones 80 H Urine Blood LARGE H Urine Nitrite NEGATIVE Ur Leukocyte Esterase MODERATE H Urine WBC (Auto) 104 Urine RBC (Auto) 13 Assessment and Plan - Diagnosis (1) DKA (diabetic ketoacidoses) Qualifiers: Diabetes mellitus type: type 2 Diabetes mellitus complication detail: without coma Qualified Code(s): E11.10 - Type 2 diabetes mellitus with ketoacidosis without coma Is this a current diagnosis for this admission?: Yes Plan: The patient was admitted to an IMCU bed and will be was placed on IV insulin drip per DKA Protocol. The patient will be aggressively hydrated with IV normal saline. Will follow serial BMPs. (2) Gastroparesis due to DM Is this a current diagnosis for this admission?: Yes Plan: She will be placed on as needed IV Phenergan and Zofran. She is allergic to Reglan. This likely the culprit for her DKA from dehydration. (3) Abdominal pain Qualifiers: Abdominal location: generalized Qualified Code(s): R10.84 - Generalized abdominal pain Is this a current diagnosis for this admission?: Yes Plan: This is likely secondary to her gastroparesis. Her abdominal exam was fairly benign. We will monitor her pain and place her on as needed IV morphine babcock lfate. (4) Accelerated essential hypertension Is this a current diagnosis for this admission?: Yes Plan: The patient will be placed on as needed IV hydralazine and labetalol. We will resume her antihypertensives. (5) DVT prophylaxis Is this a current diagnosis for this admission?: Yes Plan: Subcutaneous Lovenox and GI prophylaxis with IV PPI therapy - Time Medications reviewed and adjusted accordingly: Yes - From previous records however current reconciliation is pending Anticipated discharge: Home Within: within 72 hours - Inpatient Certification Medical Necessity: Need Close Monitoring Due to Risk of Patient Decompensation, Need For IV Fluids, Risk of Complication if Not Cared For in Hospital, Other - Need for IV insulin infusion for DKA
[2018-08-15] MEDS ORDERED: LABETALOL HCL INJ 20 MG/4 ML DISP.SYRIN IV PRN (22:52)
[2018-08-15] MEDS ORDERED: HYDRALAZINE HCL INJ/PF 20 MG/1 ML SDV IV PRN (22:54)
[2018-08-15 23:52] LABS: BLOOD UREA NITROGEN 11 mg/dL (7-20); CALCIUM 10.4 mg/dL (8.4-10.2); CHLORIDE 104 mmol/L (98-107)
[2018-08-15 23:57] LABS: CARBON DIOXIDE 14 mmol/L (22-30); SODIUM 140.5 mmol/L (137-145)
[2018-08-15] MEDS ORDERED: INSULIN REG, HUMAN 100 UNIT/ML 3 ML VIAL (PYX) ONE (23:57)
[2018-08-15 23:59] LABS: ANION GAP 23 (5-19); POTASSIUM 5.4 mmol/L (3.6-5.0)
[2018-08-16 00:28] LABS: GLUCOSE 409 mg/dL (75-110)
[2018-08-16] MEDS: MORPHINE SULFATE 10 MG/ML INJ IV PRN ×6 (00:36→17:22)
[2018-08-16] MEDS: NORMAL SALINE 1000 ML 1,000 ML IV PRN ×2 (00:42→07:59)
[2018-08-16] MEDS: ONDANSETRON HCL INJ/PF 4 MG/2 ML SDV IV PRN ×2 (02:54→15:20)
[2018-08-16] MEDS: PANTOPRAZOLE SODIUM 40 MG TABLET.DR PO SCH ×2 (05:14→17:26)
[2018-08-16 05:53] LABS: HEMATOCRIT 37.9 % (36.0-47.0); HEMOGLOBIN 12.3 g/dL (12.0-15.5); MEAN CORPUSCULAR HEMOGLOBIN 25.7 pg (27.0-33.4); MEAN CORPUSCULAR HGB CONC 32.4 g/dL (32.0-36.0); MEAN CORPUSCULAR VOLUME 79 fl (80-97); PLATELET COUNT 373 10^3/uL (150-450); RED BLOOD COUNT 4.77 10^6/uL (3.72-5.28); RED CELL DISTRIBUTION WIDTH 16.3 % (11.5-14.0); WHITE BLOOD COUNT 23.5 10^3/uL (4.0-10.5)
[2018-08-16 06:03] LABS: ANION GAP 19 (5-19); BLOOD UREA NITROGEN 14 mg/dL (7-20); CALCIUM 10.6 mg/dL (8.4-10.2); CARBON DIOXIDE 15 mmol/L (22-30); CHLORIDE 110 mmol/L (98-107); GLUCOSE 323 mg/dL (75-110); POTASSIUM 4.6 mmol/L (3.6-5.0)
[2018-08-16 06:23] LABS: ABSOLUTE LYMPHOCYTES# (MANUAL) 2.6 10^3/uL (0.5-4.7); ABSOLUTE MONOCYTES # (MANUAL) 1.4 10^3/uL (0.1-1.4); ABSOLUTE NEUTROPHILS# (MANUAL) 19.5 10^3/uL (1.7-8.2); BASOPHILS % (MANUAL) 0 % (0-2); EOSINOPHILS % (MANUAL) 0 % (0-6); LYMPHOCYTES % (MANUAL) 11 % (13-45); MONOCYTES % (MANUAL) 6 % (3-13); SEGMENTED NEUTROPHILS % (MAN) 83 % (42-78); TOTAL CELLS COUNTED 100
[2018-08-16 06:24] LABS: ANISOCYTOSIS 1+; PLATELET COMMENT ADEQUATE; POLYCHROMASIA 1+
[2018-08-16] MEDS ORDERED: CEFTRIAXONE 1 GM/D5W RTU 1 GM/50 ML RTUPB IV SCH (10:00)
[2018-08-16] MEDS: PROMETHAZINE HCL INJ 25 MG/1 ML VIAL IV PRN ×2 (10:54→17:24)
[2018-08-16] MEDS ORDERED: DEXTROSE 50%-WATER 25 GM/50 ML DISP.SYRIN IV PRN ×2 (11:03)
[2018-08-16] MEDS ORDERED: GLUCAGON,HUMAN RECOMB 1 MG INJ IM PRN (11:03)
[2018-08-16] MEDS ORDERED: DEXTROSE 40% GEL 15 GM TUBE PO PRN ×2 (11:03)
[2018-08-16] MEDS: ENOXAPARIN SODIUM INJ 40 MG/0.4 ML DISP.SYRIN SUBCUT SCH (11:04)
[2018-08-16] MEDS ORDERED: DEXTROSE 5%-1/2 NORMAL SALINE 1,000 ML IV PRN (11:43)
[2018-08-16] MEDS: INSULIN LISPRO 100 UNIT/ML 3 ML VIAL SUBCUT SCH ×3 (11:58→22:40)
[2018-08-16 12:13] LABS: ANION GAP 13 (5-19); BLOOD UREA NITROGEN 15 mg/dL (7-20); CALCIUM 10.3 mg/dL (8.4-10.2); CARBON DIOXIDE 18 mmol/L (22-30); CHLORIDE 116 mmol/L (98-107); GLUCOSE 176 mg/dL (75-110); POTASSIUM 4.2 mmol/L (3.6-5.0); SODIUM 146.6 mmol/L (137-145)
[2018-08-16] MEDS ORDERED: MORPHINE SULFATE 10 MG/ML INJ ONE (12:30)
[2018-08-16] MEDS: SULFAMETHOXAZOLE/TRIMETHOPRIM 800-160 MG TABLET PO SCH ×2 (12:50→22:40)
--- NOTE | 2018-08-16 17:14 | PDOC PROGRESS REPORT ---
Subjective Progress Note for:: 08/16/18 Subjective:: 43 y.o. F with PMH of diabetes and gastroparesis presented to [facility] with abdominal pain. She is well-known to the hospitalist staff. She was admitted for DKA and UTI, sent to [facility] on an insulin drip. The patient was seen this morning on rounds, she appears uncomfortable, very anxious and fidgety in bed. She is mildly diaphoretic, her BG is ~110. Nursing staff is instructed to D/C insulin gtt. the patient was started on a diabetic diet and placed on sliding scale insulin. She endorses nausea and abdominal pain. She has not been witnessed to vomit or dry heave. No episodes of diarrhea. Follow-up at 1400, the patient appears much more comfortable in bed. She has been given IV morphine. PRN antiemetics. Reason For Visit: DKA, DIABETIC GASTROPARESIS Physical Exam Vital Signs: Temp Pulse Resp BP Pulse Ox 98.5 F 127 H 22 H 179/84 H 100 08/16/18 12:30 08/16/18 12:30 08/16/18 12:30 08/16/18 12:30 08/16/18 12:30 Intake & Output 08/15/18 08/16/18 08/17/18 06:59 06:59 06:59 Intake Total 3016 2104 Balance 3016 2104 Weight 70.3 kg General appearance: PRESENT: well-developed, well-nourished Eye exam: PRESENT: conjunctiva pink, PERRLA Mouth exam: PRESENT: moist, tongue midline Neck exam: PRESENT: full ROM Respiratory exam: PRESENT: clear to auscultation bernardo, symmetrical, unlabored Cardiovascular exam: PRESENT: RRR Pulses: PRESENT: normal radial pulses Vascular exam: PRESENT: normal capillary refill GI/Abdominal exam: PRESENT: normal bowel sounds, soft, tenderness. ABSENT: distended Rectal exam: PRESENT: deferred Extremities exam: PRESENT: full ROM. ABSENT: pedal edema Musculoskeletal exam: PRESENT: ambulatory, full ROM Neurological exam: PRESENT: alert, awake, oriented to person, oriented to place, oriented to time, oriented to situation Psychiatric exam: PRESENT: appropriate affect Skin exam: PRESENT: dry, intact, normal color Results Laboratory Results: 08/16/18 05:36 08/16/18 11:50 08/15/18 08/15/1819 16:04 17:45 20:24 WBC RBC Hgb Hct MCV MCH MCHC RDW Plt Count Seg Neutrophils % Lymphocytes % Monocytes % Eosinophils % Basophils % Absolute Neutrophils Absolute Lymphocytes Absolute Monocytes Absolute Eosinophils Absolute Basophils VBG pH 7.33 VBG pCO2 31.7 L VBG HCO3 16.3 L VBG Base Excess -8.4 Sodium Potassium Chloride Carbon Dioxide Anion Gap BUN Creatinine Est GFR ( Amer) Est GFR (Non-Af Amer) Glucose Serum Osmolality 306 H Calcium Urine Color YELLOW Urine Appearance CLOUDY Urine pH 5.0 Ur Specific Nettie 1.026 Urine Protein 100 H Urine Glucose (UA) >=500 H Urine Ketones 80 H Urine Blood LARGE H Urine Nitrite NEGATIVE Ur Leukocyte Esterase MODERATE H Urine WBC (Auto) 104 Urine RBC (Auto) 13 08/15/18 08/16/18 08/16/18 23:22 05:36 05:36 WBC 23.5 H RBC 4.77 Hgb 12.3 Hct 37.9 MCV 79 L MCH 25.7 L MCHC 32.4 RDW 16.3 H Plt Count 373 Seg Neutrophils % Not Reportable Lymphocytes % Not Reportable Monocytes % Not Reportable Eosinophils % Not Reportable Basophils % Not Reportable Absolute Neutrophils Not Reportable Absolute Lymphocytes Not Reportable Absolute Monocytes Not Reportable Absolute Eosinophils Not Reportable Absolute Basophils Not Reportable VBG pH VBG pCO2 VBG HCO3 VBG Base Excess Sodium 140.5 144.0 Potassium 5.4 H D 4.6 Chloride 104 110 H Carbon Dioxide 14 L 15 L Anion Gap 23 H 19 BUN 11 14 Creatinine 1.02 1.11 Est GFR ( Amer) > 60 > 60 Est GFR (Non-Af Amer) 59 L 54 L Glucose 409 H* 323 H Serum Osmolality Calcium 10.4 H 10.6 H Urine Color Urine Appearance Urine pH Ur Specific Nettie Urine Protein Urine Glucose (UA) Urine Ketones Urine Blood Urine Nitrite Ur Leukocyte Esterase Urine WBC (Auto) Urine RBC (Auto) 08/16/18 11:50 WBC RBC Hgb Hct MCV MCH MCHC RDW Plt Count Seg Neutrophils % Lymphocytes % Monocytes % Eosinophils % Basophils % Absolute Neutrophils Absolute Lymphocytes Absolute Monocytes Absolute Eosinophils Absolute Basophils VBG pH VBG pCO2 VBG HCO3 VBG Base Excess Sodium 146.6 H Potassium 4.2 Chloride 116 H Carbon Dioxide 18 L Anion Gap 13 BUN 15 Creatinine 1.06 Est GFR ( Amer) > 60 Est GFR (Non-Af Amer) 57 L Glucose 176 H Serum Osmolality Calcium 10.3 H Urine Color Urine Appearance Urine pH Ur Specific Nettie Urine Protein Urine Glucose (UA) Urine Ketones Urine Blood Urine Nitrite Ur Leukocyte Esterase Urine WBC (Auto) Urine RBC (Auto) Status: Imported from PACS Assessment and Plan - Diagnosis (1) DKA (diabetic ketoacidoses) Qualifiers: Diabetes mellitus type: type 2 Diabetes mellitus complication detail: without coma Qualified Code(s): E11.10 - Type 2 diabetes mellitus with ketoacidosis without coma Is this a current diagnosis for this admission?: Yes Plan: Admit to IMCU Initially placed on insulin gtt., now DC'd Diabetic diet Humalog sliding scale insulin Accu-Cheks ACHS (2) Gastroparesis due to DM Is this a current diagnosis for this admission?: Yes Plan: Long-standing history of gastroparesis Likely contributing factor to DKA and dehydration PRN antiemetics Patient is allergic to Reglan (3) UTI (urinary tract infection) Qualifiers: Urinary tract infection type: acute cystitis Is this a current diagnosis for this admission?: Yes Plan: Urinalysis positive for UTI Patient has history of frequent UTIs Resistance to multiple antibiotics Placed on p.o. Bactrim based on previous C&S Urine cultures currently pending (4) Abdominal pain Qualifiers: Abdominal location: generalized Qualified Code(s): R10.84 - Generalized abdominal pain Is this a current diagnosis for this admission?: Yes Plan: Secondary to gastroparesis Morphine as needed Antiemetics PRN (5) HTN (hypertension) Qualifiers: Hypertension type: essential hypertension Qualified Code(s): I10 - Ess ential (primary) hypertension Is this a current diagnosis for this admission?: Yes Plan: PMH HTN Continue home dose amlodipine, clonidine, lisinopril, metoprolol PRN IV hydralazine for SBP> 170 - Time Time Spent with patient: 15-24 minutes Medications reviewed and adjusted accordingly: Yes Anticipated discharge: Home - Inpatient Certification Based on my medical assessment, after consideration of the patient's comorbidities, presenting symptoms, or acuity I expect that the services needed warrant INPATIENT care.: Yes I certify that my determination is in accordance with my understanding of [facility]'s requirements for reasonable and necessary INPATIENT services [42 CFR 412.3e].: Yes Medical Necessity: Risk of Complication if Not Cared For in Hospital
[2018-08-16] MEDS ORDERED: NORMAL SALINE 1000 ML 1,000 ML IV PRN (17:16)
[2018-08-16] MEDS ORDERED: MORPHINE SULFATE 10 MG/ML INJ IV ONE (17:27)
[2018-08-16] MEDS ORDERED: LABETALOL HCL INJ 20 MG/4 ML DISP.SYRIN IV PRN (17:28)
[2018-08-16] MEDS ORDERED: LABETALOL HCL INJ 20 MG/4 ML DISP.SYRIN IV ONE (17:40)
[2018-08-16] MEDS ORDERED: METOPROLOL TARTRATE 25 MG TABLET PO SCH (18:15)
[2018-08-16] MEDS ORDERED: LISINOPRIL 10 MG TABLET PO ONE (18:29)
[2018-08-16] MEDS ORDERED: AMLODIPINE BESYLATE 10 MG TABLET PO ONE (19:00)
[2018-08-16] MEDS: HYDROMORPHONE HCL INJ/PF 2 MG/ML AMPULE IV PRN (20:24)
[2018-08-17 04:52] LABS: ABSOLUTE BASOPHILS # (AUTO) 0.1 10^3/uL (0.0-0.2); ABSOLUTE LYMPHOCYTES (AUTO) 3.1 10^3/uL (0.5-4.7); ABSOLUTE MONOCYTES (AUTO) 1.4 10^3/uL (0.1-1.4); ABSOLUTE NEUT (AUTO) 11.7 10^3/uL (1.7-8.2); BASOPHILS % (AUTO) 0.3 % (0-2); EOSINOPHILS % (AUTO) 0.2 % (0-6); HEMATOCRIT 34.8 % (36.0-47.0); HEMOGLOBIN 11.3 g/dL (12.0-15.5); LYMPHOCYTES % (AUTO) 18.9 % (13-45); MEAN CORPUSCULAR HEMOGLOBIN 25.6 pg (27.0-33.4); MEAN CORPUSCULAR HGB CONC 32.3 g/dL (32.0-36.0); MEAN CORPUSCULAR VOLUME 79 fl (80-97); MONOCYTES % (AUTO) 8.7 % (3-13); PLATELET COUNT 296 10^3/uL (150-450); RED BLOOD COUNT 4.41 10^6/uL (3.72-5.28); RED CELL DISTRIBUTION WIDTH 16.2 % (11.5-14.0); SEGMENTED NEUTROPHILS % (AUTO) 71.9 % (42-78); TOTAL CELLS COUNTED % (AUTO) 100 %; WHITE BLOOD COUNT 16.4 10^3/uL (4.0-10.5)
[2018-08-17] MEDS: HYDROMORPHONE HCL INJ/PF 2 MG/ML AMPULE IV PRN ×2 (05:07→09:02)
[2018-08-17 05:25] LABS: ANION GAP 13 (5-19); BLOOD UREA NITROGEN 16 mg/dL (7-20); CARBON DIOXIDE 18 mmol/L (22-30); CHLORIDE 110 mmol/L (98-107); GLUCOSE 165 mg/dL (75-110); POTASSIUM 3.9 mmol/L (3.6-5.0); SODIUM 141.2 mmol/L (137-145)
[2018-08-17] MEDS: PANTOPRAZOLE SODIUM 40 MG TABLET.DR PO SCH (05:29)
[2018-08-17] MEDS: INSULIN LISPRO 100 UNIT/ML 3 ML VIAL SUBCUT SCH ×2 (08:25→11:14)
[2018-08-17] MEDS: ENOXAPARIN SODIUM INJ 40 MG/0.4 ML DISP.SYRIN SUBCUT SCH (09:00)
[2018-08-17] MEDS: SULFAMETHOXAZOLE/TRIMETHOPRIM 800-160 MG TABLET PO SCH (09:03)
[2018-08-17] MEDS ORDERED: CLONIDINE 0.2 MG/24 HR PATCH.TDWK TOP SCH (10:00)
[2018-08-17] MEDS ORDERED: AMLODIPINE BESYLATE 10 MG TABLET PO SCH (10:00)
[2018-08-17] MEDS ORDERED: LISINOPRIL 10 MG TABLET PO SCH (10:00)
[2018-08-17] MEDS ORDERED: METOPROLOL TARTRATE 25 MG TABLET PO SCH (10:00)
[2018-08-17] MEDS ORDERED: HYDROMORPHONE HCL INJ/PF 2 MG/ML AMPULE IV PRN (11:15)
[2018-08-17 11:55] VITALS: BP 156/68
[2018-08-17] MEDS ORDERED: CLONIDINE HCL 0.1 MG TABLET PO ONE (13:00)
[2018-08-17] MEDS ORDERED: INSULIN GLARGINE,HUM.REC.ANLOG 1,000 UNIT/10 ML VIAL SUBCUT SCH (13:00)
== END 2018-08-17 15:25 | disposition home or self-care (01) | DRG 638 ==
LOC: ER 15:11 → EH 21:51 → 3W 08-16 00:14
PROVIDERS: ADMIT Family Medicine; ATTEND Family Medicine
DX: E11.10 Type 2 diabetes mellitus with ketoacidosis without coma (principal); N30.00 Acute cystitis without hematuria; I10 Essential (primary) hypertension; E11.43 Type 2 diabetes mellitus with diabetic autonomic (poly)neuropathy; F41.9 Anxiety disorder, unspecified; K31.84 Gastroparesis; E78.5 Hyperlipidemia, unspecified; K21.9 Gastro-esophageal reflux disease without esophagitis; L30.9 Dermatitis, unspecified; F31.9 Bipolar disorder, unspecified; Z86.14 Personal history of Methicillin resistant Staphylococcus aureus infection; Z90.49 Acquired absence of other specified parts of digestive tract; Z88.8 Allergy status to other drugs, medicaments and biological substances; Z83.3 Family history of diabetes mellitus; Z82.49 Family history of ischemic heart disease and other diseases of the circulatory system
CPT/HCPCS: 36415; 80048; 80053; 81001; 81025; 82803; 82962; 83036; 83690; 83930; 85025; 96361; 96365; 96372; 99291; J0360; J0696; J1170; J1630; J1650; J1815; J2270; J2405; J2550; J3490; J7030

== ENCOUNTER 2018-10-01 09:26 | Emergency (ER) | payer MEDICARE, MEDICAID ==
[2018-10-01] MEDS ORDERED: NORMAL SALINE 1000 ML 1,000 ML IV ONE ×3 (09:57→15:45)
[2018-10-01] MEDS ORDERED: HYDROMORPHONE HCL INJ/PF 2 MG/ML AMPULE IV ONE ×4 (09:58→19:44)
[2018-10-01] MEDS ORDERED: ONDANSETRON HCL INJ/PF 4 MG/2 ML SDV IV ONE ×2 (09:58→15:45)
[2018-10-01] MEDS ORDERED: DIPHENHYDRAMINE HCL 50 MG/ML VIAL IV ONE (10:06)
[2018-10-01] MEDS ORDERED: HALOPERIDOL LACTATE INJ 5 MG/1 ML VIAL IM ONE (10:06)
--- NOTE | 2018-10-01 10:08 | ER Document Report ---
ED Medical Screen (RME) - General Chief Complaint: Abdominal Pain Stated Complaint: VOMITING Time Seen by Provider: 10/01/18 09:56 Primary Care Provider: GLEN MCGRATH PA-C [Primary Care Provider] - Follow up as needed Mode of Arrival: Wheelchair Information source: Patient Notes: Patient presents complaining of abdominal pain that started this morning with nausea and vomiting. Patient reports vomiting numerous episodes. Patient denies any diarrhea fever or urinary symptoms. Patient complains of pain to the generalized abdomen. Patient does have a history of chronic abdominal pain diabetes and gastroparesis. I have greeted and performed a rapid initial assessment of this patient. A comprehensive ED assessment and evaluation of the patient, analysis of test results and completion of the medical decision making process will be conducted by additional ED providers. TRAVEL OUTSIDE OF THE [place] IN LAST 30 DAYS: No - Related Data Allergies/Adverse Reactions: metoclopramide HCl [From Reglan] Allergy (Unknown, Verified 10/01/18 09:29) Past Medical History - Social History Chew tobacco use (# tins/day): No Frequency of alcohol use: None Drug Abuse: None Family history: DM, Hypertension - Past Medical History Cardiac Medical History: Reports: Hx Hypercholesterolemia, Hx Hypertension Endocrine Medical History: Reports: Hx Diabetes Mellitus Type 1, Hx Diabetes Mellitus Type 2 Renal/ Medical History: Reports: Hx Renal Insufficiency. Denies: Hx Pe ritoneal Dialysis GI Medical History: Reports: Hx Gastroesophageal Reflux Disease Musculoskeltal Medical History: Reports Hx Arthritis - Hand Skin Medical History: Reports Hx Eczema Psychiatric Medical History: Reports: Hx Anxiety, Hx Bipolar Disorder, Hx Depression Infectious Medical History: Reports: Hx MRSA Past Surgical History: Reports: Hx Cholecystectomy - Immunizations Immunizations up to date: Yes Hx Diphtheria, Pertussis, Tetanus Vaccination: Yes - unknown History of Influenza Vaccine for 02/2017 - 07/2017 Season: No Physical Exam - Vital signs Vitals: Temp Pulse Resp BP Pulse Ox 99.1 F 120 H 20 156/118 H 98 10/01/18 09:33 10/01/18 09:33 10/01/18 09:33 10/01/18 09:33 10/01/18 09:33 - General General appearance: Alert, Anxious Notes: Patient moaning, continually rubbing abdomen. pt tachycardic. Course - Vital Signs Vital signs: Temp Pulse Resp BP Pulse Ox 99.1 F 120 H 20 156/118 H 98 10/01/18 09:33 10/01/18 09:33 10/01/18 09:33 10/01/18 09:33 10/01/18 09:33 Doctor's Discharge - Discharge Referrals: GLEN MCGRATH PA-C [Primary Care Provider] - Follow up as needed
[2018-10-01 12:03] LABS: ABSOLUTE LYMPHOCYTES (AUTO) 1.6 10^3/uL (0.5-4.7); ABSOLUTE MONOCYTES (AUTO) 0.8 10^3/uL (0.1-1.4); ABSOLUTE NEUT (AUTO) 10.7 10^3/uL (1.7-8.2); BASOPHILS % (AUTO) 0.3 % (0-2); EOSINOPHILS % (AUTO) 0.1 % (0-6); HEMATOCRIT 41.1 % (36.0-47.0); HEMOGLOBIN 13.1 g/dL (12.0-15.5); LYMPHOCYTES % (AUTO) 12.4 % (13-45); MEAN CORPUSCULAR HEMOGLOBIN 25.2 pg (27.0-33.4); MEAN CORPUSCULAR VOLUME 79 fl (80-97); PLATELET COUNT 449 10^3/uL (150-450); RED BLOOD COUNT 5.21 10^6/uL (3.72-5.28); RED CELL DISTRIBUTION WIDTH 15.7 % (11.5-14.0); SEGMENTED NEUTROPHILS % (AUTO) 81.2 % (42-78); TOTAL CELLS COUNTED % (AUTO) 100 %; WHITE BLOOD COUNT 13.1 10^3/uL (4.0-10.5)
[2018-10-01 12:21] LABS: ALANINE AMINOTRANSFERASE 16 U/L (9-52); ALKALINE PHOSPHATASE 130 U/L (38-126); ASPARTATE AMINO TRANSFERASE 27 U/L (14-36); BILIRUBIN,DIRECT 0.2 mg/dL (0.0-0.4); BILIRUBIN,TOTAL 0.6 mg/dL (0.2-1.3); BLOOD UREA NITROGEN 10 mg/dL (7-20); CALCIUM 10.6 mg/dL (8.4-10.2); GLUCOSE 278 mg/dL (75-110); POTASSIUM 4.7 mmol/L (3.6-5.0); TOTAL PROTEIN 9.3 g/dL (6.3-8.2)
[2018-10-01 12:26] LABS: CARBON DIOXIDE 19 mmol/L (22-30); CHLORIDE 101 mmol/L (98-107); SODIUM 140.3 mmol/L (137-145)
[2018-10-01 12:27] LABS: ANION GAP 20 (5-19)
--- NOTE | 2018-10-01 12:37 | RADIOLOGY REPORT (SQ) ---
EXAM DESCRIPTION: CHEST SINGLE VIEW COMPLETED DATE/TIME: 10/01/2018 12:24 pm REASON FOR STUDY: abd pain, tachycardia COMPARISON: 03/29/2018 EXAM PARAMETERS: NUMBER OF VIEWS: One view. TECHNIQUE: Single frontal radiographic view of the chest acquired. RADIATION DOSE: NA LIMITATIONS: None. FINDINGS: LUNGS AND PLEURA: No opacities, masses or pneumothorax. No pleural effusion. MEDIASTINUM AND HILAR STRUCTURES: No masses. Contour normal. HEART AND VASCULAR STRUCTURES: Heart normal in size. Normal vasculature. BONES: No acute findings. HARDWARE: None in the chest. OTHER: Prior cholecystectomy. IMPRESSION: NO ACUTE RADIOGRAPHIC FINDING IN THE CHEST. TECHNICAL DOCUMENTATION: JOB ID: [id number] [employer]- All Rights Reserved Reading location - IP/workstation name: [email or web address]
--- NOTE | 2018-10-01 15:47 | ER Document Report ---
ED General - General Chief Complaint: Abdominal Pain Stated Complaint: VOMITING Time Seen by Provider: 10/01/18 09:56 Primary Care Provider: GLEN MCGRATH PA-C [Primary Care Provider] - Follow up in 3-5 days AMILCAR VYAS MD [ACTIVE STAFF] - Follow up as needed (This is a number of a GI doctor) Mode of Arrival: Wheelchair Information source: Patient Notes: This is a 43-year-old female with a history of diabetes and chronic recurrent abdominal pain who presents to the emergency room with diffuse abdominal pain. Patient is writhing around in discomfort. She denies any fever. She reports nausea. She denies any diarrhea. TRAVEL OUTSIDE OF THE [place] IN LAST 30 DAYS: No - HPI Onset: Last week Onset/Duration: Gradual Quality of pain: Dull Severity: Moderate Pain Level: 2 Associated symptoms: Nausea, Vomiting. denies: Chest pain, Fever, Shortness of breath Exacerbated by: Denies Relieved by: Denies Similar symptoms previously: Yes Recently seen / treated by doctor: Yes - Related Data Allergies/Adverse Reactions: metoclopramide HCl [From Reglan] Allergy (Unknown, Verified 10/01/18 09:29) Past Medical History - General Information source: Patient - Social History Smoking Status: Never Smoker Cigarette use (# per day): No Chew tobacco use (# tins/day): No Frequency of alcohol use: None Drug Abuse: None Lives with: Family Family History: DM, Hypertension Patient has suicidal ideation: No Patient has homicidal ideation: No - Past Medical History Cardiac Medical History: Reports: Hx Hypercholesterolemia, Hx Hypertension Endocrine Medical History: Reports: Hx Diabetes Mellitus Type 2. Denies: Hx Diabetes Mellitus Type 1 Renal/ Medical History: Reports: Hx Renal Insufficiency. Denies: Hx Peritoneal Dialysis GI Medical History: Reports: Hx Gastroesophageal Reflux Disease Musculoskeletal Medical History: Reports Hx Arthritis - Hand Skin Medical History: Reports Hx Eczema Psychiatric Medical History: Reports: Hx Anxiety, Hx Bipolar Disorder, Hx Depression Infectious Medical History: Reports: Hx MRSA Past Surgical History: Reports: Hx Cholecystectomy - Immunizations Immunizations up to date: Yes Hx Diphtheria, Pertussis, Tetanus Vaccination: Yes - unknown Hx Pneumococcal Vaccination: 05/04/10 Review of Systems - Review of Systems Constitutional: denies: Chills, Fever EENT: No symptoms reported Cardiovascular: denies: Chest pain, Palpitations, Heart racing Respiratory: denies: Cough, Short of breath, Wheezing Gastrointestinal: See HPI Genitourinary: No symptoms reported Female Genitourinary: No symptoms reported Musculoskeletal: No symptoms reported Skin: No symptoms reported Hematologic/Lymphatic: No symptoms reported Neurological/Psychological: No symptoms reported Physical Exam - Vital signs Vitals: Temp Pulse Resp BP Pulse Ox 99.1 F 120 H 20 156/118 H 98 10/01/18 09:33 10/01/18 09:33 10/01/18 09:33 10/01/18 09:33 10/01/18 09:33 Notes: Physical exam: GENERAL: Is alert and oriented x3, he is writhing around in the bed and appears uncomfortable HEAD: Atraumatic, normocephalic. EYES: Pupils equal round and reactive to light, extraocular movements intact, sclera anicteric, conjunctiva are normal. ENT: TMs normal, nares patent, oropharynx clear without exudates. Moist mucous membranes. NECK: Normal range of motion, supple without obvious mass or JVD. LUNGS: Breath sounds clear to auscultation bilaterally and equal. No wheezes rales or rhonchi. HEART: Regular rate and rhythm without murmurs, rubs or gallops. ABDOMEN: Soft, few sleep tender. No florentin rebound. No masses appreciated. EXTREMITIES: Normal range of motion, no pitting or edema. No clubbing or cyanosis. NEUROLOGICAL: Cranial nerves II through XII grossly intact. Normal speech, moving all extremities. PSYCH: Normal mood, normal affect. SKIN: Warm, Dry, normal turgor, no rashes or lesions noted. Course - Re-evaluation Re-evalutation: 10/01/18 20:57 Note: This is a 43-year-old woman with history of chronic recurrent abdominal pain and clinical vomiting that has had multiple evaluations and multiple CT scans in the past. She presents with similar symptoms. She was treated with IV fluids, antiemetics, IV Haldol, IV pain control. When her symptoms came back, I did discuss with her repeating acute CT scan and she absolutely refused given how much radiation she is had in the past. Her abdomen shows no peritoneal findings at this time. She would like to go home with a short course of pain medicines and antiemetics and she will follow-up with her primary care doctor. I will refer her to a GI doctor as well. She is accompanied by a friend and this is the patient's wish at this time. - Vital Signs Vital signs: Temp Pulse Resp BP Pulse Ox 99.1 F 120 H 20 156/118 H 98 10/01/18 09:33 10/01/18 09:33 10/01/18 09:33 10/01/18 09:33 10/01/18 09:33 - Laboratory Result Diagrams: 10/01/18 11:35 10/01/18 11:35 Laboratory results interpreted by me: 10/01/18 10/01/18 11:35 11:35 WBC 13.1 H MCV 79 L MCH 25.2 L RDW 15.7 H Seg Neutrophils % 81.2 H Lymphocytes % 12.4 L Absolute Neutrophils 10.7 H Carbon Dioxide 19 L Anion Gap 20 H Glucose 278 H Calcium 10.6 H Alkaline Phosphatase 130 H Total Protein 9.3 H - EKG Interpretation by Me Rate: Tachycardia - KG shows sinus tachycardia with a ventricular rate of 119, no acute ST-T wave changes Discharge - Discharge Clinical Impression: Chronic recurrent abdominal pain, Cyclical vomiting Condition: Stable Disposition: HOME, SELF-CARE Instructions: Abdominal Pain ([facility]) Additional Instructions: Rest, drink plenty of fluids and advance diet as tolerated. Take the nausea medicine as prescribed. Take the pain medication as needed. Return to the emergency room for worsening pain, vomiting, fever (temperature greater than 100.1) or any concerns or getting worse. I did leave the number for Dr. Vyas who is a GI specialist. I would like you to follow-up with your primary care doctor as well as the GI doctor The pain medicine you're taking prescribed as a narcotic. There are several important things you should know about this medicine: 1. This medicine contains Tylenol: It is important that you do not take Tylenol (or acetaminophen) while on this medicine. Tylenol is metabolized by the liver and taking too much Tylenol (acetaminophen) can lay to liver damage and even liver failure. 2. Taking narcotics for too long can lead to physical and mental dependence. Take this medicine only if really needed and in the lowest quantity to achieve pain relief. 3. Do not drink alcohol while on this medicine. Alcohol interacts with narcotics and the combination can be dangerous. 4. Do not drive or operate machinery while on this medicine. 5. Narcotics do cause constipation, so drink plenty of fluids and daily stool softeners. Prescriptions: Hydromorphone HCl [Dilaudid 2 Mg Tablet] 2 mg PO Q6H PRN #20 tablet PRN Reason: for pain Promethazine HCl [Phenergan 25 mg Tablet] 25 mg PO Q6H PRN #15 tablet PRN Reason: Referrals: GLEN MCGRATH PA-C [Primary Care Provider] - Follow up in 3-5 days AMILCAR VYAS MD [ACTIVE STAFF] - Follow up as needed (This is a number of a GI doctor)
[2018-10-01] MEDS ORDERED: HALOPERIDOL LACTATE INJ 5 MG/1 ML VIAL IV ONE (19:48)
--- NOTE | 2018-10-01 20:05 | EKG REPORT ---
SEVERITY:- ABNORMAL ECG - SINUS TACHYCARDIA ABNRM R PROG, CONSIDER ASMI OR LEAD PLACEMENT : Confirmed by: Buffy Guajardo MD 01-Oct-2018 20:05:04
[2018-10-01] MEDS ORDERED: ONDANSETRON ODT 4 MG TAB (6 TAB/ER DISP) PO PRN (20:42)
[2018-10-01 20:59] VITALS: BP 142/78
== END 2018-10-01 20:57 | disposition home or self-care (01) ==
LOC: ER 09:26
DX: G89.29 Other chronic pain (principal); R10.84 Generalized abdominal pain; G43.A0 Cyclical vomiting, in migraine, not intractable; I10 Essential (primary) hypertension; E11.9 Type 2 diabetes mellitus without complications; Z87.19 Personal history of other diseases of the digestive system; Z90.49 Acquired absence of other specified parts of digestive tract; Z88.8 Allergy status to other drugs, medicaments and biological substances
CPT/HCPCS: 93005; 96376; 99284; 96372; 96361; 96374; 96375; 36415; 84703; 85025; 80053; 84484; 71045; 93010; J1200; J1630; J1170; J2405; J7030; A9270

== ENCOUNTER 2018-10-02 18:36 | Inpatient (IN) | payer MEDICARE, MEDICAID ==
--- NOTE | 2018-10-02 18:43 | ER Document Report ---
ED Medical Screen (RME) - General Stated Complaint: ABDOMINAL PAIN Time Seen by Provider: 10/02/18 18:41 Primary Care Provider: GLEN MCGRAHT PA-C [Primary Care Provider] - Follow up as needed Mode of Arrival: Ambulatory Information source: Patient TRAVEL OUTSIDE OF THE [place] IN LAST 30 DAYS: No - HPI Patient complains to provider of: ABDO PAIN Notes: 10/02/18 18:41 Patient is here with complaints of abdominal pain. I was in the lobby talking with another patient when I was asked to see this patient. She apparently walked in and then had an episode of feeling dizzy. Patient was placed into a wheelchair. She is awake and talking to me but not keeping her eyes open very well. She complains of abdominal pain with nausea vomiting. Patient is a diabetic. Exam Patient sitting in wheelchair. Difficult to understand at times. No focal abdominal tenderness on limited exam. Plan CBC, CMP, lipase, urine, urine . Patient will require further evaluation shortly. I have ordered an Accu-Chek which is being completed at this time. An initial examination was made on the patient as part of the triage process, and it was determined a more comprehensive evaluation was necessary. Initial labs were ordered and patient was transferred to another provider in the ED who assumed care and finished evaluation and plan. - Related Data Allergies/Adverse Reactions: metoclopramide HCl [From Reglan] Allergy (Unknown, Verified 10/01/18 09:29) Past Medical History - Social History Family history: DM, Hypertension - Past Medical History Cardiac Medical History: Reports: Hx Hypercholesterolemia, Hx Hypertension Endocrine Medical History: Reports: Hx Diabetes Mellitus Type 2. Denies: Hx Diabetes Mellitus Type 1 Renal/ Medical History: Reports: Hx Renal Insufficiency. Denies: Hx Peritoneal Dialysis GI Medical History: Reports: Hx Gastroesophageal Reflux Disease Musculoskeltal Medical History: Reports Hx Arthritis - Hand Skin Medical History: Reports Hx Eczema Psychiatric Medical History: Reports: Hx Anxiety, Hx Bipolar Disorder, Hx Depression Infectious Medical History: Reports: Hx MRSA Past Surgical History: Reports: Hx Cholecystectomy - Immunizations Immunizations up to date: Yes Hx Diphtheria, Pertussis, Tetanus Vaccination: Yes - unknown History of Influenza Vaccine for 02/2017 - 07/2017 Season: No Doctor's Discharge - Discharge Referrals: GLEN MCGRATH PA-C [Primary Care Provider] - Follow up as needed
[2018-10-02] MEDS ORDERED: NORMAL SALINE 1000 ML 1,000 ML IV ONE (19:30)
[2018-10-02 23:53] LABS: VENOUS BLOOD BASE EXCESS -1.3 mmol/L; VENOUS BLOOD HCO3 24.3 mmol/L (20-32); VENOUS BLOOD PCO2 43.7 mmHg (35-63); VENOUS BLOOD PH 7.36 (7.30-7.42)
[2018-10-02 23:55] LABS: ABSOLUTE BASOPHILS # (AUTO) 0.1 10^3/uL (0.0-0.2); ABSOLUTE LYMPHOCYTES (AUTO) 1.3 10^3/uL (0.5-4.7); ABSOLUTE MONOCYTES (AUTO) 1.4 10^3/uL (0.1-1.4); ABSOLUTE NEUT (AUTO) 16.8 10^3/uL (1.7-8.2); BASOPHILS % (AUTO) 0.3 % (0-2); HEMATOCRIT 45.3 % (36.0-47.0); HEMOGLOBIN 14.5 g/dL (12.0-15.5); LYMPHOCYTES % (AUTO) 6.5 % (13-45); MEAN CORPUSCULAR HEMOGLOBIN 25.3 pg (27.0-33.4); MEAN CORPUSCULAR VOLUME 79 fl (80-97); PLATELET COUNT 418 10^3/uL (150-450); RED BLOOD COUNT 5.74 10^6/uL (3.72-5.28); RED CELL DISTRIBUTION WIDTH 16.1 % (11.5-14.0); SEGMENTED NEUTROPHILS % (AUTO) 86.2 % (42-78); TOTAL CELLS COUNTED % (AUTO) 100 %; WHITE BLOOD COUNT 19.5 10^3/uL (4.0-10.5)
[2018-10-03 00:12] LABS: ALANINE AMINOTRANSFERASE 25 U/L (9-52); ALBUMIN 5.4 g/dL (3.5-5.0); ALKALINE PHOSPHATASE 163 U/L (38-126); ASPARTATE AMINO TRANSFERASE 29 U/L (14-36); BILIRUBIN,DIRECT 0.4 mg/dL (0.0-0.4); BILIRUBIN,TOTAL 0.8 mg/dL (0.2-1.3); BLOOD UREA NITROGEN 21 mg/dL (7-20); CALCIUM 11.2 mg/dL (8.4-10.2); CARBON DIOXIDE 21 mmol/L (22-30); GLUCOSE 380 mg/dL (75-110); LIPASE 135.1 U/L (23-300); POTASSIUM 5.1 mmol/L (3.6-5.0); TOTAL PROTEIN 9.9 g/dL (6.3-8.2)
[2018-10-03 00:17] LABS: CHLORIDE 90 mmol/L (98-107); SODIUM 134.7 mmol/L (137-145)
[2018-10-03 00:19] LABS: ANION GAP 24 (5-19)
[2018-10-03 00:33] LABS: APPEARANCE,URINE SLIGHTLY-CLOUDY; BILIRUBIN,URINE NEGATIVE (NEGATIVE); COLOR,URINE YELLOW; GLUCOSE, URINE >=500 mg/dL (NEGATIVE); KETONES,URINE 80 mg/dL (NEGATIVE); LEUKOCYTE ESTERASE,URINE NEGATIVE (NEGATIVE); NITRITE,URINE NEGATIVE (NEGATIVE); PROTEIN,URINE 100 mg/dL (NEGATIVE); URINE SPECIFIC GRAVITY 1.025; UROBILINOGEN,URINE NEGATIVE mg/dL (<2.0)
[2018-10-03] MEDS ORDERED: INSULIN REG, HUMAN 100 UNIT/ML 3 ML VIAL (PYX) IV ONE (00:45)
[2018-10-03] MEDS ORDERED: HYDROMORPHONE HCL INJ/PF 2 MG/ML AMPULE IV ONE (00:57)
[2018-10-03] MEDS ORDERED: ONDANSETRON HCL INJ/PF 4 MG/2 ML SDV IV ONE (00:57)
--- NOTE | 2018-10-03 01:06 | ER Document Report ---
Entered by FAITH GAMEZ SCRIBE 10/03/18 0105 Acting as scribe for:BERTO MARTINEZ DO ED General - General Chief Complaint: Abdominal Pain Stated Complaint: ABDOMINAL PAIN Time Seen by Provider: 10/02/18 18:41 Mode of Arrival: Ambulatory Information source: Patient Notes: Patient is a 43 year old female with type 1 diabetes presents to the emergency department complaining of diffuse abdominal pain and vomiting onset yesterday morning. Patient states she presented to the emergency department yesterday and was discharged home with phenegran and Dilaudid. Patient states these medications did not help her symptoms. She also complains of chills. She denies any fevers, diarrhea, or hematuria. When she was seen in the emergency department yesterday she refused CT scan due to concerns over malignancy induced by radiation. Patient mentions she was prescribed a new insulin shot approximately 1 month ago . She states after administering the shot she began to have abdominal pain. She states she reported to her PCP who instructed her to discontinue use. She sta rolf she feels she has been having abdominal troubles since the change in medication. TRAVEL OUTSIDE OF THE [place] IN LAST 30 DAYS: No - Related Data Allergies/Adverse Reactions: metoclopramide HCl [From Reglan] Allergy (Unknown, Verified 10/01/18 09:29) Past Medical History - General Information source: Patient - Social History Smoking Status: Never Smoker Cigarette use (# per day): No Chew tobacco use (# tins/day): No Smoking Education Provided: No Frequency of alcohol use: None Family History: DM, Hypertension - Past Medical History Cardiac Medical History: Reports: Hx Hypercholesterolemia, Hx Hypertension Endocrine Medical History: Reports: Hx Diabetes Mellitus Type 2 Renal/ Medical History: Reports: Hx Renal Insufficiency GI Medical History: Reports: Hx Gastroesophageal Reflux Disease Musculoskeletal Medical History: Reports Hx Arthritis - Hand Skin Medical History: Reports Hx Eczema Psychiatric Medical History: Reports: Hx Anxiety, Hx Bipolar Disorder, Hx Depression Infectious Medical History: Reports: Hx MRSA Past Surgical History: Reports: Hx Cholecystectomy - Immunizations Immunizations up to date: Yes Hx Diphtheria, Pertussis, Tetanus Vaccination: Yes - unknown Hx Pneumococcal Vaccination: 05/04/10 Review of Systems - Review of Systems Constitutional: No symptoms reported EENT: No symptoms reported Cardiovascular: No symptoms reported Respiratory: No symptoms reported Gastrointestinal: See HPI, Abdominal pain, Vomiting Genitourinary: No symptoms reported Female Genitourinary: No symptoms reported Musculoskeletal: No symptoms reported Skin: No symptoms reported Hematologic/Lymphatic: No symptoms reported Neurological/Psychological: No symptoms reported -: Yes All other systems reviewed and negative Physical Exam - Vital signs Vitals: Temp Pulse Resp BP Pulse Ox 98.1 F 132 H 16 164/103 H 98 10/02/18 18:53 10/02/18 18:53 10/02/18 18:53 10/02/18 18:53 10/02/18 18:53 Interpretation: Hypertensive, Tachycardic - Notes Notes: GENERAL: Alert, appears uncomfortable, slowly rocking back and forth. HEAD: Normocephalic, atraumatic. EYES: Pupils equal, round, and reactive to light. Extraocular movements intact. ENT: Oral mucosa moist, tongue midline. NECK: Full range of motion. Supple. Trachea midline. LUNGS: Clear to auscultation bilaterally, no wheezes, rales, or rhonchi. No respiratory distress. HEART: Regular rate and rhythm. No murmurs, gallops, or rubs. ABDOMEN: Soft, non-tender. Non-distended. Bowel sounds present in all 4 quadrants. No guarding, rigidity, or rebound. EXTREMITIES: Moves all 4 extremities spontaneously. NEUROLOGICAL: Alert and oriented x3. Normal speech. PSYCH: Normal affect, normal mood. SKIN: Warm, dry, normal turgor. No rashes or lesions noted. Course - Re-evaluation Re-evalutation: 10/03/18 01:00 CBC shows worsening leukocytosis with white count 19.5 venous blood gas is actually normal with a pH of 7.36, CMP shows diabetic ketoacidosis with a pseudohyponatremia, sodium is 134.7, potassium elevated at 5.1, CO2 low 24, ani on gap elevated at 24, BUN elevated at 21, creatinine worsened since yesterday at 1.23, glucose elevated 380, calcium elevated at 11.2, alkaline phosphatase elevated at 163, lipase is normal, test is negative, lactate urinalysis shows 80 of ketones and moderate blood but 0 RBCs, no sign of infection. Discussed with Dr. Najera, agrees to accept the patient for admission to a telemetry bed. Request CT scan of the abdomen pelvis, this will be done with IV and oral contrast. Fluids and insulin drip of been started. Patient is aware that she will need to be admitted. - Vital Signs Vital signs: Temp Pulse Resp BP Pulse Ox 98.2 F 133 H 20 190/114 H 100 10/03/18 02:58 10/03/18 02:58 10/03/18 02:58 10/03/18 02:58 10/03/18 02:58 - Laboratory Result Diagrams: 10/02/18 23:40 10/03/18 02:15 Laboratory results interpreted by me: 10/02/18 10/02/18 10/03/18 23:40 23:40 00:09 WBC 19.5 H RBC 5.74 H MCV 79 L MCH 25.3 L RDW 16.1 H Seg Neutrophils % 86.2 H Lymphocytes % 6.5 L Absolute Neutrophils 16.8 H ESR Sodium 134.7 L Potassium 5.1 H Chloride 90 L Carbon Dioxide 21 L Anion Gap 24 H BUN 21 H Est GFR ( Amer) 58 L Est GFR (Non-Af Amer) 48 L Glucose 380 H Calcium 11.2 H Alkaline Phosphatase 163 H C-Reactive Protein Total Protein 9.9 H Albumin 5.4 H TSH PTH Intact Urine Protein 100 H Urine Glucose (UA) >=500 H Urine Ketones 80 H Urine Blood MODERATE H 10/03/18 10/03/18 10/03/18 00:09 00:09 00:09 WBC RBC MCV MCH RDW Seg Neutrophils % Lymphocytes % Absolute Neutrophils ESR 48 H Sodium Potassium Chloride Carbon Dioxide Anion Gap BUN Est GFR ( Amer) Est GFR (Non-Af Amer) Glucose Calcium Alkaline Phosphatase C-Reactive Protein 11.0 H Total Protein Albumin TSH PTH Intact 132.1 H Urine Protein Urine Glucose (UA) Urine Ketones Urine Blood 10/03/18 00:09 WBC RBC MCV MCH RDW Seg Neutrophils % Lymphocytes % Absolute Neutrophils ESR Sodium Potassium Chloride Carbon Dioxide Anion Gap BUN Est GFR ( Amer) Est GFR (Non-Af Amer) Glucose Calcium Alkaline Phosphatase C-Reactive Protein Total Protein Albumin TSH 0.41 L PTH Intact Urine Protein Urine Glucose (UA) Urine Ketones Urine Blood - EKG Interpretation by Me Additional EKG results interpreted by me: 10/03/18 02:44 EKG shows sinus tachycardia at a rate of 124, normal axis, no ST segment elevations or depressions, no T wave inversions, there are T wave inversions in V2 per my interpretation. Discharge - Discharge Clinical Impression: Diabetes mellitus type 1, uncontrolled, insulin dependent Qualifiers: Glycemic state: with hyperglycemia Qualified Code(s): E10.65 - Type 1 diabetes mellitus with hyperglycemia DKA (diabetic ketoacidoses) Qualifiers: Diabetes mellitus type: type 1 Diabetes mellitus complication detail: without coma Qualified Code(s): E10.10 - Type 1 diabetes mellitus with ketoacidosis without coma Abdominal pain Qualifiers: Abdominal location: generalized Qualified Code(s): R10.84 - Generalized abdominal pain Condition: Fair Disposition: ADMITTED INPATIENT Admitting Provider: Reinaldo (Hospitalist) Unit Admitted: Telemetry I personally performed the services described in the documentation, reviewed and edited the documentation which was dictated to the scribe in my presence, and it accurately records my words and actions.
[2018-10-03] MEDS ORDERED: FUROSEMIDE INJ/PF 40 MG/4 ML SDV IV ONE (02:02)
[2018-10-03] MEDS: NORMAL SALINE 1000 ML 1,000 ML IV PRN ×2 (02:03→04:35)
[2018-10-03] MEDS ORDERED: GLUCAGON,HUMAN RECOMB 1 MG INJ IM PRN (02:04)
[2018-10-03] MEDS ORDERED: DEXTROSE 50%-WATER 25 GM/50 ML DISP.SYRIN IV PRN ×2 (02:04)
[2018-10-03] MEDS ORDERED: DEXTROSE 40% GEL 15 GM TUBE PO PRN ×2 (02:04)
[2018-10-03] MEDS ORDERED: ACETAMINOPHEN 325 MG TABLET PO PRN (02:08)
[2018-10-03] MEDS ORDERED: MAGNESIUM HYDROXIDE SUSP 30 ML UDCUP PO PRN (02:08)
[2018-10-03] MEDS ORDERED: MAG HYDROX/AL HYDROX/SIMETH SUSP 30 ML UDCUP PO PRN (02:08)
[2018-10-03] MEDS ORDERED: IPRATROPIUM/ALBUTEROL 0.5-2.5 MG/3 ML AMPUL NEB PRN (02:08)
[2018-10-03 02:51] LABS: ANION GAP 19 (5-19); BLOOD UREA NITROGEN 20 mg/dL (7-20); CALCIUM 9.6 mg/dL (8.4-10.2); CARBON DIOXIDE 20 mmol/L (22-30); CHLORIDE 97 mmol/L (98-107); GLUCOSE 302 mg/dL (75-110); POTASSIUM 4.5 mmol/L (3.6-5.0); SODIUM 135.9 mmol/L (137-145)
[2018-10-03 02:52] LABS: URINE AMPHETAMINES SCREEN NEGATIVE; URINE BARBITURATES SCREEN NEGATIVE; URINE BENZODIAZEPINES SCREEN NEGATIVE; URINE COCAINE SCREEN NEGATIVE; URINE MARIJUANA (THC) SCREEN NEGATIVE; URINE METHADONE SCREEN NEGATIVE; URINE PHENCYCLIDINE SCREEN NEGATIVE
[2018-10-03] MEDS ORDERED: KETOROLAC TROMETHAMINE INJ/PF 30 MG/1 ML SDV IV PRN (03:16)
[2018-10-03] MEDS: HUM INSULIN NPH/REG INSULIN HM 100 UNIT/1 ML 3 ML SUBCUT SCH ×3 (03:20→18:20)
[2018-10-03] MEDS ORDERED: KETOROLAC TROMETHAMINE INJ/PF 30 MG/1 ML SDV INJ ONE (03:30)
[2018-10-03] MEDS: AMLODIPINE BESYLATE 10 MG TABLET PO SCH ×2 (04:37→10:55)
--- NOTE | 2018-10-03 04:46 | RADIOLOGY REPORT (SQ) ---
CLINICAL HISTORY: diffuse abd pain, leukocytosis, DKA COMPARISON: None. TECHNIQUE: CT ABDOMEN PELVIS WITH IV CONTRAST on 10/03/2018 12:56 AM CDT This exam was performed according to our departmental dose-optimization program, which includes automated exposure control, adjustment of the mA and/or kV according to patient size and/or use of iterative reconstruction technique. FINDINGS: Lower lungs are clear. Abdomen: The liver is normal in appearance. There is no biliary dilatation. There is a moderate hiatal hernia. Cholecystectomy was performed. The pancreas and spleen are normal in appearance. The adrenal glands and kidneys are unremarkable. Abdominal aorta is normal in course and caliber without aneurysm. There is no free air. There is no retroperitoneal adenopathy. Pelvis: There is no bowel obstruction. Urinary bladder is unremarkable. There is no free fluid. Uterus is normal in size. Appendix is normal. Skeleton: There are no acute osseous findings. No suspicious bony lesions. IMPRESSION: Moderate hiatal hernia. No acute inflammatory process.
[2018-10-03] MEDS ORDERED: HYDROMORPHONE HCL INJ/PF 2 MG/ML AMPULE ONE (04:58)
[2018-10-03] MEDS ORDERED: CLONIDINE HCL 0.2 MG TABLET PO ONE (05:00)
[2018-10-03] MEDS ORDERED: METOPROLOL TARTRATE PF/INJ 5 MG/5 ML SDV IV ONE ×2 (05:00→06:45)
[2018-10-03] MEDS: PANTOPRAZOLE SODIUM 40 MG TABLET.DR PO SCH (05:11)
[2018-10-03] MEDS: HEPARIN SOD (PORCINE) 5,000 UNIT/ML 1 ML SYRINGE SUBCUT SCH ×2 (05:11→14:09)
--- NOTE | 2018-10-03 05:20 | PDOC H&P ---
History of Present Illness Admission Date/PCP: 10/03/18 01:12 GLEN MCGRATH PA-C Patient complains of: Abdominal pain History of Present Illness: RUTH CA is a 43 year old female with a past medical history of poorly controlled insulin, depression with suicide ideation, moderate hiatal hernia, cyclic vomiting syndrome and hypercalcemia with incomplete work-up. Complicated by recurrent AMA and 23 presentations in 12 months. patient presents with 24 hours of abdominal pain nausea vomiting content with associated headache, palpitations and hyperglycemia. In the emergency room she is found to be hypertensive, tachycardic, hyperglycemic without metabolic acidosis. She is referred to the hospitalist for admission. Patiently recently discontinued but takes hydrochlorothiazide. She has had an incomplete work-up of hypercalcemia and urine metanephrines which was significantly elevated in 2014. She receives insulin, symptomatic management with Dilaudid and antiemetic and referred to the hospitalist for admission. Past Medical History Cardiac Medical History: Reports: Hyperlipidema, Hypertension Endocrine Medical History: Reports: Diabetes Mellitus Type 2 Denies: Diabetes Mellitus Type 1 GI Medical History: Reports: Gastroesophageal Reflux Disease, Hiatal Hernia Musculoskeltal Medical History: Reports: Arthritis - Hand Skin Medical History: Reports: Eczema Psychiatric Medical History: Reports: Bipolar Disorder, Depression Hematology: Reports: Anemia Infectious Medical History: Reports: Methicillin-Resistant Staph Aureus Past Surgical History Past Surgical History: Reports: Cholecystectomy Social History Information Source: Patient Smoking Status: Never Smoker Frequency of Alcohol Use: None Hx Recreational Drug Use: No Drugs: None Hx Prescription Drug Abuse: No - Advance Directive Resuscitation Status: Full Code Family History Family History: None, DM, Hypertension Parental Family History Reviewed: Yes Children Family History Reviewed: Yes Sibling(s) Family History Reviewed.: Yes Medication/Allergy Home Medications: Amlodipine Besylate [Norvasc 10 mg Tablet] 10 mg PO DAILY 08/16/18 Clonidine [Catapres-Tts 2 (0.2 mg/24 Hr) Transderm Ptch] 1 patch TOP DIALLO@1000 08/16/18 Dexlansoprazole [Dexilant 60 mg Capsule] 60 mg PO DAILY 08/16/18 Insulin Aspart [Novolog Flexpen] 0 unit SQ .SLIDING SCALE 08/16/18 Insulin Glargine,Hum.rec.anlog [Lantus Insulin 100 Unit/1 ml 10 ml] 24 unit SQ QAM 08/16/18 Lisinopril [Zestril] 20 mg PO DAILY 08/16/18 Metformin HCl [Glucophage 500 mg Tablet] 500 mg PO DAILY 08/16/18 Enoxaparin Sodium [Lovenox Inj 40 mg/0.4 ml Disp.syrin] 40 mg SUBCUT DAILY disp.syrin 08/17/18 Metoprolol Tartrate [Lopressor 25 mg Tablet] 50 mg PO DAILY #30 08/17/18 Oxycodone HCl/Acetaminophen [Percocet 5-325 mg Tablet] 1 - 2 tab PO ASDIR PRN #10 tablet 08/17/18 Promethazine HCl [Phenergan 25 mg Supp.rect] 1 supp GA Q6H #10 supp.rect 08/17/18 Sulfamethoxazole/Trimethoprim [Septra-Ds 800-160 mg Tablet] 1 tab PO Q12 #10 tablet 08/17/18 Hydromorphone HCl [Dilaudid 2 Mg Tablet] 2 mg PO Q6H PRN #20 tablet 10/01/18 Promethazine HCl [Phenergan 25 mg Tablet] 25 mg PO Q6H PRN #15 tablet 10/01/18 Allergies/Adverse Reactions: metoclopramide HCl [From Reglan] Allergy (Unknown, Verified 10/01/18 09:29) Review of Systems ROS unobtainable: Due to mental status - Patient answers affirmatively to all questions and is felt to be an unreliable historian Physical Exam Vital Signs: Temp Pulse Resp BP Pulse Ox 98.2 F 133 H 20 190/114 H 100 10/03/18 02:58 10/03/18 02:58 10/03/18 02:58 10/03/18 02:58 10/03/18 02:58 Intake & Output 10/01/18 10/02/18 10/03/18 11:59 11:59 11:59 Intake Total 1067 Balance 1067 Weight 75 kg General appearance: PRESENT: disheveled, mild distress, obese, well-developed, well-nourished Head exam: PRESENT: atraumatic, normocephalic Eye exam: PRESENT: conjunctiva pink, EOMI, PERRLA. ABSENT: scleral icterus Ear exam: PRESENT: normal external ear exam Mouth exam: PRESENT: dry mucosa, neck supple. ABSENT: laceration Neck exam: ABSENT: carotid bruit, JVD, lymphadenopathy, thyromegaly Respiratory exam: PRESENT: clear to auscultation bernardo. ABSENT: rales, rhonchi, wheezes Cardiovascular exam: PRESENT: RRR, tachycardia. ABSENT: diastolic murmur, rubs, systolic murmur Pulses: PRESENT: normal dorsalis pedis pul Vascular exam: PRESENT: normal capillary refill GI/Abdominal exam: PRESENT: normal bowel sounds, soft. ABSENT: distended, guarding, mass, organolmegaly, rebound, tenderness Rectal exam: PRESENT: deferred Extremities exam: PRESENT: full ROM. ABSENT: calf tenderness, clubbing, pedal edema Neurological exam: PRESENT: alert, awake, oriented to person, oriented to place, oriented to time, oriented to situation, CN II-XII grossly intact. ABSENT: motor sensory deficit Psychiatric exam: PRESENT: agitated, anxious Skin exam: PRESENT: dry, intact, warm. ABSENT: cyanosis, rash Results Laboratory Results: 10/02/18 23:40 10/03/18 02:15 10/02/18 10/02/18 10/02/18 23:40 23:40 23:40 WBC 19.5 H RBC 5.74 H Hgb 14.5 Hct 45.3 MCV 79 L MCH 25.3 L MCHC 32.0 RDW 16.1 H Plt Count 418 Seg Neutrophils % 86.2 H Lymphocytes % 6.5 L Monocytes % 7.0 Eosinophils % 0.0 Basophils % 0.3 Absolute Neutrophils 16.8 H Absolute Lymphocytes 1.3 Absolute Monocytes 1.4 Absolute Eosinophils 0.0 Absolute Basophils 0.1 VBG pH 7.36 VBG pCO2 43.7 VBG HCO3 24.3 VBG Base Excess -1.3 Sodium 134.7 L Potassium 5.1 H Chloride 90 L Carbon Dioxide 21 L Anion Gap 24 H BUN 21 H Creatinine 1.23 Est GFR ( Amer) 58 L Est GFR (Non-Af Amer) 48 L Glucose 380 H Calcium 11.2 H Ionized Calcium [place] Total Bilirubin 0.8 AST 29 ALT 25 Alkaline Phosphatase 163 H C-Reactive Protein Total Protein 9.9 H Albumin 5.4 H Lipase 135.1 TSH PTH Intact Urine Color Urine Appearance Urine pH Ur Specific [place] Urine Protein Urine Glucose (UA) Urine Ketones Urine Blood Urine Nitrite Ur Leukocyte Esterase Urine WBC (Auto) Urine RBC (Auto) 10/03/18 10/03/18 10/03/18 00:09 00:09 00:09 WBC RBC Hgb Hct MCV MCH MCHC RDW Plt Count Seg Neutrophils % Lymphocytes % Monocytes % Eosinophils % Basophils % Absolute Neutrophils Absolute Lymphocytes Absolute Monocytes Absolute Eosinophils Absolute Basophils VBG pH VBG pCO2 VBG HCO3 VBG Base Excess Sodium Potassium Chloride Carbon Dioxide Anion Gap BUN Creatinine Est GFR ( Amer) Est GFR (Non-Af Amer) Glucose Calcium Ionized Calcium [place] Total Bilirubin AST ALT Alkaline Phosphatase C-Reactive Protein 11.0 H Total Protein Albumin Lipase TSH PTH Intact 132.1 H Urine Color YELLOW Urine Appearance SLIGHTLY-CLOUDY Urine pH 5.0 Ur Specific [place] 1.025 Urine Protein 100 H Urine Glucose (UA) >=500 H Urine Ketones 80 H Urine Blood MODERATE H Urine Nitrite NEGATIVE Ur Leukocyte Esterase NEGATIVE Urine WBC (Auto) 1 Urine RBC (Auto) 0 10/03/18 10/03/18 10/03/18 00:09 02:15 02:15 WBC RBC Hgb Hct MCV MCH MCHC RDW Plt Count Seg Neutrophils % Lymphocytes % Monocytes % Eosinophils % Basophils % Absolute Neutrophils Absolute Lymphocytes Absolute Monocytes Absolute Eosinophils Absolute Basophils VBG pH VBG pCO2 VBG HCO3 VBG Base Excess Sodium 135.9 L Potassium 4.5 Chloride 97 L Carbon Dioxide 20 L Anion Gap 19 BUN 20 Creatinine 1.06 Est GFR ( Amer) > 60 Est GFR (Non-Af Amer) 57 L Glucose 302 H Calcium 9.6 Ionized Calcium [place] 1.18 Total Bilirubin AST ALT Alkaline Phosphatase C-Reactive Protein Total Protein Albumin Lipase TSH 0.41 L PTH Intact Urine Color Urine Appearance Urine pH Ur Specific [place] Urine Protein Urine Glucose (UA) Urine Ketones Urine Blood Urine Nitrite Ur Leukocyte Esterase Urine WBC (Auto) Urine RBC (Auto) Impressions: Abdomen/Pelvis CT 10/03/18 00:56 IMPRESSION: Moderate hiatal hernia. No acute inflammatory process. Assessment and Plan - Diagnosis (1) Abdominal pain Qualifiers: Abdominal location: generalized Qualified Code(s): R10.84 - Generalized abdominal pain Is this a current diagnosis for this admission?: Yes Plan: Comp gated by uncontrolled hyperglycemia, large hiatal hernia, gastroparesis and hypercalcemia. Follow-up CT abdomen symptomatic management, hypercalcemia work- up (2) Hypercalcemia Is this a current diagnosis for this admission?: Yes Plan: Recurrent presentations with the same complicated by hydrochlorothiazide use. Follow-up PTH and chemistry, IV fluid challenge, Lasix. (3) Pheochromocytoma Is this a current diagnosis for this admission?: Yes Plan: Questionable pheochromocytoma, elevated urine metanephrines 2014. Follow-up new labs and CT abdomen (4) Diabetes mellitus type 1, uncontrolled, insulin dependent Qualifiers: Glycemic state: with hyperglycemia Qualified Code(s): E10.65 - Type 1 diabetes mellitus with hyperglycemia Is this a current diagnosis for this admission?: Yes Plan: Poorly controlled diabetes, resume outpatient regiment with Humalog sliding scale, obtain A1c - Time Time Spent with patient: 35 or more minutes - Inpatient Certification Medical Necessity: Significant Comorbidiites Make Outpatient Treatment Too Risky, Need Close Monitoring Due to Risk of Patient Decompensation
[2018-10-03] MEDS ORDERED: ENALAPRILAT DIHYDRATE INJ/PF 1.25 MG/1 ML SDV IV ONE (06:04)
[2018-10-03] MEDS ORDERED: HYDRALAZINE HCL INJ/PF 20 MG/1 ML SDV IV PRN (06:04)
[2018-10-03 09:56] LABS: ANION GAP 13 (5-19); BLOOD UREA NITROGEN 21 mg/dL (7-20); CALCIUM 8.8 mg/dL (8.4-10.2); CARBON DIOXIDE 22 mmol/L (22-30); CHLORIDE 98 mmol/L (98-107); GLUCOSE 273 mg/dL (75-110); POTASSIUM 4.5 mmol/L (3.6-5.0); SODIUM 133.1 mmol/L (137-145)
[2018-10-03] MEDS ORDERED: METOPROLOL TARTRATE 25 MG TABLET PO SCH (10:00)
[2018-10-03] MEDS: ENOXAPARIN SODIUM INJ 40 MG/0.4 ML DISP.SYRIN SUBCUT SCH (10:54)
[2018-10-03] MEDS: DOCUSATE SODIUM 100 MG CAPSULE PO SCH ×2 (10:55→18:23)
[2018-10-03] MEDS: METOPROLOL TARTRATE 25 MG TABLET PO SCH ×2 (10:56→18:24)
[2018-10-03] MEDS: INSULIN LISPRO 100 UNIT/ML 3 ML VIAL SUBCUT SCH ×3 (10:56→18:17)
[2018-10-03] MEDS: LISINOPRIL 10 MG TABLET PO SCH (10:56)
[2018-10-03] MEDS: METFORMIN HCL 500 MG TABLET PO SCH ×2 (10:56→14:12)
[2018-10-03] MEDS: HYDROMORPHONE HCL INJ/PF 2 MG/ML AMPULE SUBCUT PRN ×3 (11:08→20:17)
--- NOTE | 2018-10-03 16:02 | Progress Note ---
Provider Note Provider Note: This is 43 years old black female patient with past medical history of diabetes mellitus, hypertension, hyperlipidemia, bipolar disorder presented with chief complaint of abdominal pain. Patient has also history of recurrent vomiting. Patient is being hydrated and she had not been started by the on-call physician who is diluted 1 mg subcutaneously every 6 hours as needed. When I saw her this morning and is lying on her side she is awake alert oriented. And reports her abdominal pain is improving. Accept this patient and I will be her primary attending.
[2018-10-03 21:16] LABS: ANION GAP 10 (5-19); BLOOD UREA NITROGEN 23 mg/dL (7-20); CALCIUM 9.6 mg/dL (8.4-10.2); CARBON DIOXIDE 24 mmol/L (22-30); CHLORIDE 98 mmol/L (98-107); GLUCOSE 135 mg/dL (75-110); POTASSIUM 3.8 mmol/L (3.6-5.0); SODIUM 132.2 mmol/L (137-145)
--- NOTE | 2018-10-03 22:33 | EKG REPORT ---
SEVERITY:- ABNORMAL ECG - SINUS TACHYCARDIA TAQUERIA, CONSIDER BIATRIAL ABNORMALITIES CONSIDER ANTEROSEPTAL INFARCT NONSPECIFIC T ABNORMALITIES, INFERIOR LEADS : Confirmed by: Buffy Guajardo MD 03-Oct-2018 22:32:43
[2018-10-04] MEDS: HYDROMORPHONE HCL INJ/PF 2 MG/ML AMPULE SUBCUT PRN ×3 (01:26→10:48)
[2018-10-04 02:52] LABS: ANION GAP 12 (5-19); BLOOD UREA NITROGEN 23 mg/dL (7-20); CALCIUM 9.7 mg/dL (8.4-10.2); CARBON DIOXIDE 22 mmol/L (22-30); CHLORIDE 99 mmol/L (98-107); GLUCOSE 133 mg/dL (75-110); POTASSIUM 4.2 mmol/L (3.6-5.0); SODIUM 133.4 mmol/L (137-145)
[2018-10-04] MEDS: PANTOPRAZOLE SODIUM 40 MG TABLET.DR PO SCH (05:11)
[2018-10-04] MEDS: INSULIN LISPRO 100 UNIT/ML 3 ML VIAL SUBCUT SCH ×2 (07:48→12:22)
[2018-10-04] MEDS: HUM INSULIN NPH/REG INSULIN HM 100 UNIT/1 ML 3 ML SUBCUT SCH (07:53)
--- NOTE | 2018-10-04 10:19 | PDOC DISCHARGE SUMMARY ---
General - Admit/Disc Date/PCP Admission Date/Primary Care Provider: 10/03/18 01:12 GLEN MCGRATH PA-C Discharge Date: 10/04/18 - Discharge Diagnosis (1) Abdominal pain Is this a current diagnosis for this admission?: Yes (2) Hypercalcemia Is this a current diagnosis for this admission?: Yes (3) Pheochromocytoma Is this a current diagnosis for this admission?: Yes (4) Leukocytosis Is this a current diagnosis for this admission?: Yes (5) Type 2 diabetes mellitus Is this a current diagnosis for this admission?: Yes - Additional Information Resuscitation Status: Full Code Home Medications: Amlodipine Besylate [Norvasc 10 mg Tablet] 10 mg PO DAILY 08/16/18 Clonidine [Catapres-Tts 2 (0.2 mg/24 Hr) Transderm Ptch] 1 patch TOP DIALLO@1000 08/16/18 Dexlansoprazole [Dexilant 60 mg Capsule] 60 mg PO DAILY 08/16/18 Insulin Aspart [Novolog Flexpen] 0 unit SQ .SLIDING SCALE 08/16/18 Insulin Glargine,Hum.rec.anlog [Lantus Insulin 100 Unit/1 ml 10 ml] 25 unit SQ DAILY 08/16/18 Lisinopril [Zestril] 20 mg PO DAILY 08/16/18 Metformin HCl [Metformin HCl ER] 500 mg PO DAILY 10/03/18 Metoprolol Tartrate [Lopressor 25 mg Tablet] 25 mg PO DAILY 10/03/18 History of Present Illness History of Present Illness: RUTH AC is a 43 year old female with a past medical history of poorly controlled insulin, depression with suicide ideation, moderate hiatal hernia, cyclic vomiting syndrome and hypercalcemia with incomplete work-up. Complicated by recurrent AMA and 23 presentations in 12 months. patient presents with 24 hours of abdominal pain nausea vomiting content with associated headache, palpitations and hyperglycemia. In the emergency room she is found to be hypertensive, tachycardic, hyperglycemic without metabolic acidosis. She is referred to the hospitalist for admission. Patiently recently discontinued but takes hydrochlorothiazide. She has had an incomplete work-up of hypercalcemia and urine metanephrines which was significantly elevated in 2014. She receives insulin, symptomatic management with Dilaudid and antiemetic and referred to the hospitalist for admission. Hospital Course Hospital Course: This is 43 years old black female patient with past medical history of diabetes mellitus, hypertension, hyperlipidemia, bipolar disorder presented with chief complaint of abdominal pain. Patient has also history of recurrent vomiting. Patient is being hydrated and she had not been started by the on-call physician who is diluted 1 mg subcutaneously every 6 hours as needed. When I see her this morning, is sitting up in bed. She is awake alert oriented. She is not in pain or distress.. And reports her abdominal pain has subsided. Her vital signs are within normal limits. CT scan of the abdomen shows moderate hiatal hernia without inflammatory process. I explained to her what that hiatal hernia is. Patient advised to keep up her upcoming appointment with her primary care physician. Physical Exam Vital Signs: Temp Pulse Resp BP Pulse Ox 98.8 F 96 16 128/70 H 97 10/04/18 07:54 10/04/18 07:54 10/04/18 07:54 10/04/18 07:54 10/04/18 07:54 Intake & Output 10/03/18 10/04/18 10/05/18 06:59 06:59 06:59 Intake Total 2167 2430 Output Total 1750 Balance 2167 680 Weight 75 kg General appearance: PRESENT: no acute distress, well-developed, well-nourished Head exam: PRESENT: atraumatic, normocephalic Eye exam: PRESENT: conjunctiva pink, EOMI, PERRLA. ABSENT: scleral icterus Ear exam: PRESENT: normal external ear exam Mouth exam: PRESENT: moist, tongue midline Neck exam: ABSENT: carotid bruit, JVD, lymphadenopathy, thyromegaly Respiratory exam: PRESENT: clear to auscultation bernardo. ABSENT: rales, rhonchi, wheezes Cardiovascular exam: PRESENT: RRR. ABSENT: diastolic murmur, rubs, systolic murmur Pulses: PRESENT: normal dorsalis pedis pul Vascular exam: PRESENT: normal capillary refill GI/Abdominal exam: PRESENT: normal bowel sounds, soft. ABSENT: distended, guarding, mass, organolmegaly, rebound, tenderness Rectal exam: PRESENT: deferred Extremities exam: PRESENT: full ROM. ABSENT: calf tenderness, clubbing, pedal edema Neurological exam: PRESENT: alert, awake, oriented to person, oriented to place, oriented to time, oriented to situation, CN II-XII grossly intact. ABSENT: motor sensory deficit Psychiatric exam: PRESENT: appropriate affect, normal mood. ABSENT: homicidal ideation, suicidal ideation Skin exam: PRESENT: dry, intact, warm. ABSENT: cyanosis, rash Results Laboratory Results: 10/02/18 23:40 10/04/18 02:16 10/03/18 10/04/18 20:42 02:16 Sodium 132.2 L 133.4 L Potassium 3.8 4.2 Chloride 98 99 Carbon Dioxide 24 22 Anion Gap 10 12 BUN 23 H 23 H Creatinine 1.06 0.94 Est GFR ( Amer) > 60 > 60 Est GFR (Non-Af Amer) 57 L > 60 Glucose 135 H 133 H Calcium 9.6 9.7 Impressions: Abdomen/Pelvis CT 10/03/18 00:56 IMPRESSION: Moderate hiatal hernia. No acute inflammatory process. Qualifiers - * PATIENT BEING DISCHARGED WITH ANY OF THE FOLLOWING DIAGNOSIS: No Acute Heart Failure Is this a Heart Failure Patient?: No
[2018-10-04] MEDS: METOPROLOL TARTRATE 25 MG TABLET PO SCH (10:49)
[2018-10-04] MEDS: LISINOPRIL 10 MG TABLET PO SCH (10:49)
[2018-10-04] MEDS: AMLODIPINE BESYLATE 10 MG TABLET PO SCH (10:49)
[2018-10-04] MEDS: DOCUSATE SODIUM 100 MG CAPSULE PO SCH (10:49)
[2018-10-04] MEDS: METFORMIN HCL 500 MG TABLET PO SCH (10:49)
[2018-10-04] MEDS: ENOXAPARIN SODIUM INJ 40 MG/0.4 ML DISP.SYRIN SUBCUT SCH (10:50)
[2018-10-04 11:32] VITALS: BP 131/75
[2018-10-05 06:37] LABS: CALCIUM RANDOM URINE 4.8 mg/dL (Not Estab.); CREATININE URINE 62.7 mg/dL (Not Estab.)
[2018-10-05] MEDS ORDERED: CLONIDINE 0.2 MG/24 HR PATCH.TDWK TOP SCH (10:00)
[2018-10-06 07:11] LABS: CALCIUM CREAT RATIO 77 mg/g creat (0-260)
[2018-10-06 13:37] LABS: CALCIUM RANDOM URINE 8.9 mg/dL (Not Estab.); CREATININE URINE 132.3 mg/dL (Not Estab.)
[2018-10-07 09:38] LABS: EPINEPHRINE 474 pg/mL (0-62)
[2018-10-07 11:19] LABS: DOPAMINE 334 pg/mL (0-48); NOREPINEPHRINE 2020 pg/mL (0-874)
[2018-10-08 11:39] LABS: DOPAMINE URINE (ug/g CREAT) 311 ug/g Creat (0-348); EPINEPHRINE URINE (ug/g CREAT) 22 ug/g Creat (0-19); NOREPINEPHRINE UR (ug/g CREAT) 101 ug/g Creat (0-111)
[2018-10-08 12:08] LABS: EPINEPHRINE URINE 16 ug/L (Undefined); NOREPINEPHRINE URINE 73 ug/L (Undefined)
[2018-10-08 12:09] LABS: DOPAMINE URINE 225 ug/L (Undefined)
[2018-10-08 15:03] LABS: METANEPHRINE 176 pg/mL (0-62); NORMETANEPHRINE 576 pg/mL (0-145)
== END 2018-10-04 13:05 | disposition home or self-care (01) | DRG 639 ==
LOC: ER 18:36 → EH 10-03 01:12 → 4N 10-03 02:54
PROVIDERS: ADMIT Internal Medicine; ATTEND Internal Medicine
DX: E10.65 Type 1 diabetes mellitus with hyperglycemia (principal); E83.52 Hypercalcemia; I10 Essential (primary) hypertension; K44.9 Diaphragmatic hernia without obstruction or gangrene; E78.5 Hyperlipidemia, unspecified; D35.00 Benign neoplasm of unspecified adrenal gland; K21.9 Gastro-esophageal reflux disease without esophagitis; F41.8 Other specified anxiety disorders; Z86.14 Personal history of Methicillin resistant Staphylococcus aureus infection; Z79.4 Long term (current) use of insulin; Z79.84 Long term (current) use of oral hypoglycemic drugs; Z79.899 Other long term (current) drug therapy
CPT/HCPCS: 36415; 71045; 74177; 80048; 80053; 80307; 81001; 81025; 82306; 82330; 82340; 82382; 82383; 82397; 82570; 82803; 82962; 83036; 83690; 83835; 83970; 84443; 84484; 84703; 85025; 85652; 86140; 93005; 93010; 99285; J1170; J1650; J1815; J1885; J1940; J2405; J3490; J7030

== ENCOUNTER 2018-10-07 12:47 | Emergency (ER) | payer MEDICARE, MEDICAID ==
--- NOTE | 2018-10-07 14:00 | ER Document Report ---
ED Medical Screen (RME) - General Chief Complaint: Medical Clearance Stated Complaint: MEDICAL CLEARANCE Time Seen by Provider: 10/07/18 13:52 Primary Care Provider: GLEN MCGRATH PA-C [Primary Care Provider] - Follow up as needed Mode of Arrival: Ambulatory Notes: 43-year-old female presented to ED for complaint of severe abdominal pain. She states she is also needed to get clearance to go to [place] because she thinks she is going to kill herself. Labs urine, EKG all ordered. Patient will be seen by a provider in the back. She has been here several times in the last couple days. I have greeted and performed a rapid initial assessment of this patient. A comprehensive ED assessment and evaluation of the patient, analysis of test results and completion of medical decision making process will be conducted by an additional ED providers. Dictation of this chart was performed using voice recognition software; therefore, there may be some unintended grammatical errors. TRAVEL OUTSIDE OF THE [place] IN LAST 30 DAYS: No - Related Data Allergies/Adverse Reactions: metoclopramide HCl [From Reglan] Allergy (Unknown, Verified 10/01/18 09:29) Past Medical History - Social History Family history: DM, Hypertension - Past Medical History Cardiac Medical History: Reports: Hx Hypercholesterolemia, Hx Hypertension Endocrine Medical History: Reports: Hx Diabetes Mellitus Type 2. Denies: Hx Diabetes Mellitus Type 1 Renal/ Medical History: Reports: Hx Renal Insufficiency. Denies: Hx Peritoneal Dialysis GI Medical History: Reports: Hx Gastroesophageal Reflux Disease, Hx Hiatal Hernia Musculoskeltal Medical History: Reports Hx Arthritis - Hand Skin Medical History: Reports Hx Eczema Psychiatric Medical History: Reports: Hx Anxiety, Hx Bipolar Disorder, Hx Depression Infectious Medical History: Reports: Hx MRSA Past Surgical History: Reports: Hx Cholecystectomy - Immunizations Immunizations up to date: Yes Hx Diphtheria, Pertussis, Tetanus Vaccination: Yes - unknown History of Influenza Vaccine for 02/2017 - 07/2017 Season: No Physical Exam - Vital signs Vitals: Temp Pulse Resp BP Pulse Ox 98.8 F 109 H 18 190/101 H 96 10/07/18 13:24 10/07/18 13:24 10/07/18 13:24 10/07/18 13:24 10/07/18 13:24 Course - Vital Signs Vital signs: Temp Pulse Resp BP Pulse Ox 98.8 F 109 H 18 190/101 H 96 10/07/18 13:24 10/07/18 13:24 10/07/18 13:24 10/07/18 13:24 10/07/18 13:24 Doctor's Discharge - Discharge Referrals: GLEN MCGRATH PA-C [Primary Care Provider] - Follow up as needed
--- NOTE | 2018-10-07 16:18 | EKG REPORT ---
SEVERITY:- ABNORMAL ECG - SINUS TACHYCARDIA NONSPECIFIC T ABNORMALITIES, INFERIOR LEADS LVH CLINICAL CORRELATION NEED TO EXPLAIN NEW COVING ST-ELEVATIONS IN ANTERIOR LEADS. : Confirmed by: Eduardo Novak MD 07-Oct-2018 16:17:56
[2018-10-07 18:02] LABS: ABSOLUTE BASOPHILS # (AUTO) 0.1 10^3/uL (0.0-0.2); ABSOLUTE LYMPHOCYTES (AUTO) 2.6 10^3/uL (0.5-4.7); ABSOLUTE MONOCYTES (AUTO) 1.1 10^3/uL (0.1-1.4); ABSOLUTE NEUT (AUTO) 10.9 10^3/uL (1.7-8.2); BASOPHILS % (AUTO) 0.5 % (0-2); EOSINOPHILS % (AUTO) 0.1 % (0-6); HEMATOCRIT 39.3 % (36.0-47.0); HEMOGLOBIN 12.8 g/dL (12.0-15.5); LYMPHOCYTES % (AUTO) 17.8 % (13-45); MEAN CORPUSCULAR HEMOGLOBIN 25.9 pg (27.0-33.4); MEAN CORPUSCULAR HGB CONC 32.5 g/dL (32.0-36.0); MEAN CORPUSCULAR VOLUME 80 fl (80-97); MONOCYTES % (AUTO) 7.6 % (3-13); PLATELET COUNT 395 10^3/uL (150-450); RED BLOOD COUNT 4.95 10^6/uL (3.72-5.28); RED CELL DISTRIBUTION WIDTH 15.6 % (11.5-14.0); TOTAL CELLS COUNTED % (AUTO) 100 %; WHITE BLOOD COUNT 14.7 10^3/uL (4.0-10.5)
[2018-10-07 18:17] LABS: ALANINE AMINOTRANSFERASE 32 U/L (9-52); ALBUMIN 4.6 g/dL (3.5-5.0); ALKALINE PHOSPHATASE 104 U/L (38-126); ANION GAP 18 (5-19); ASPARTATE AMINO TRANSFERASE 21 U/L (14-36); BILIRUBIN,DIRECT 0.3 mg/dL (0.0-0.4); BILIRUBIN,TOTAL 0.5 mg/dL (0.2-1.3); BLOOD UREA NITROGEN 11 mg/dL (7-20); CALCIUM 10.7 mg/dL (8.4-10.2); CARBON DIOXIDE 22 mmol/L (22-30); CHLORIDE 95 mmol/L (98-107); GLUCOSE 367 mg/dL (75-110); POTASSIUM 3.7 mmol/L (3.6-5.0); SODIUM 134.7 mmol/L (137-145)
[2018-10-07 18:20] LABS: ACETAMINOPHEN < 10 ug/mL (10-30); ALCOHOL < 10 mg/dL (NONE DETECTED); SALICYLATE < 1.0 mg/dL (2.0-20.0)
[2018-10-07 18:57] LABS: AMORPHOUS SEDIMENT,URINE TRACE /HPF; APPEARANCE,URINE SLIGHTLY-CLOUDY; BILIRUBIN,URINE NEGATIVE (NEGATIVE); COLOR,URINE YELLOW; GLUCOSE, URINE >=500 mg/dL (NEGATIVE); KETONES,URINE 80 mg/dL (NEGATIVE); LEUKOCYTE ESTERASE,URINE TRACE (NEGATIVE); NITRITE,URINE NEGATIVE (NEGATIVE); PROTEIN,URINE NEGATIVE (NEGATIVE); URINE SPECIFIC GRAVITY 1.031; UROBILINOGEN,URINE NEGATIVE mg/dL (<2.0)
[2018-10-07 19:10] LABS: URINE AMPHETAMINES SCREEN NEGATIVE; URINE BARBITURATES SCREEN NEGATIVE; URINE BENZODIAZEPINES SCREEN NEGATIVE; URINE MARIJUANA (THC) SCREEN NEGATIVE; URINE METHADONE SCREEN NEGATIVE; URINE PHENCYCLIDINE SCREEN NEGATIVE
[2018-10-07] MEDS ORDERED: DICYCLOMINE HCL INJ 20 MG/2 ML AMPULE IM ONE (19:11)
[2018-10-07] MEDS ORDERED: CLONIDINE 0.2 MG/24 HR PATCH.TDWK TD ONE (19:11)
[2018-10-07 19:13] LABS: URINE COCAINE SCREEN UNCONFIRMED POSITIVE
--- NOTE | 2018-10-07 20:01 | ER Document Report ---
ED Psych Disorder / Suicide - General Mode of Arrival: Ambulatory Information source: Patient, Friend - Eyal Ibarra [phone] TRAVEL OUTSIDE OF THE [place] IN LAST 30 DAYS: No <AIDEN DOBBINS - Last Filed: 10/08/18 02:00> <HEADLEYFERMIN PEPPER - Last Filed: 10/08/18 03:01> - General Chief Complaint: Medical Clearance Stated Complaint: MEDICAL CLEARANCE Time Seen by Provider: 10/07/18 13:52 Primary Care Provider: GLEN MCGRATH PA-C [Primary Care Provider] - Follow up as needed Notes: Patient presents the emergency department with request for medical clearance. Patient reports that she also has mid abdominal pain. [facility] self presented to [facility] at which time they told her that they do have beds available however they would not be able to see her unless she had a medical clearance due to her abdominal pain and elevated blood pressure. Upon arrival to the emergency department patient is thrashing around the lobby throwing herself on the ground. Patient was discharged from this facility 3 days ago for abdominal pain. Patient denies any nausea, vomiting, diarrhea or fevers. Patient does report that she is thinking about killing herself although she has no plan. Patient denies any homicidal ideations. (AIDEN DOBBINS) - Related Data Allergies/Adverse Reactions: metoclopramide HCl [From Reglan] Allergy (Unknown, Verified 10/01/18 09:29) Past Medical History - General Information source: Patient - Social History Smoking Status: Never Smoker Frequency of alcohol use: None Drug Abuse: None Family History: None, DM, Hypertension Patient has suicidal ideation: No Patient has homicidal ideation: No - Past Medical History Cardiac Medical History: Reports: Hx Hypercholesterolemia, Hx Hypertension Endocrine Medical History: Reports: Hx Diabetes Mellitus Type 2. Denies: Hx Diabetes Mellitus Type 1 Renal/ Medical History: Reports: Hx Renal Insufficiency. Denies: Hx Peritoneal Dialysis GI Medical History: Reports: Hx Gastroesophageal Reflux Disease, Hx Hiatal H ernia Musculoskeletal Medical History: Reports Hx Arthritis - Hand Skin Medical History: Reports Hx Eczema Psychiatric Medical History: Reports: Hx Anxiety, Hx Bipolar Disorder, Hx Depression Infectious Medical History: Reports: Hx MRSA Past Surgical History: Reports: Hx Cholecystectomy - Immunizations Immunizations up to date: Yes Hx Diphtheria, Pertussis, Tetanus Vaccination: Yes - unknown Hx Pneumococcal Vaccination: 05/04/10 <AIDEN DOBBINS - Last Filed: 10/08/18 02:00> Review of Systems - Review of Systems Constitutional: No symptoms reported EENT: No symptoms reported Cardiovascular: No symptoms reported Respiratory: No symptoms reported Gastrointestinal: No symptoms reported Genitourinary: No symptoms reported Female Genitourinary: No symptoms reported Musculoskeletal: No symptoms reported Skin: No symptoms reported Hematologic/Lymphatic: No symptoms reported Neurological/Psychological: Suicidal ideation - Without plan <AIDEN DOBBINS - Last Filed: 10/08/18 02:00> Physical Exam <AIDEN DOBBINS - Last Filed: 10/08/18 02:00> - Vital signs Vitals: Temp Pulse Resp BP Pulse Ox 98.8 F 109 H 18 190/101 H 96 10/07/18 13:24 10/07/18 13:24 10/07/18 13:24 10/07/18 13:24 10/07/18 13:24 - Notes Notes: PHYSICAL EXAMINATION: GENERAL: Disheveled. HEAD: Atraumatic, normocephalic. EYES: Pupils equal round and reactive to light, extraocular movements intact, conjunctiva are normal. ENT: Nares patent, oropharynx clear without exudates. Moist mucous membranes. NECK: Normal range of motion, supple without lymphadenopathy LUNGS: Breath sounds clear to auscultation bilaterally and equal. No wheezes rales or rhonchi. HEART: Regular rate and rhythm without murmurs ABDOMEN: Soft, nontender, nondistended abdomen. No guarding, no rebound. No masses appreciated. Female : deferred Musculoskeletal: Normal range of motion, no pitting or edema. No cyanosis. NEUROLOGICAL: Cranial nerves grossly intact. Normal speech, normal gait. Normal sensory, motor exams PSYCH: Normal mood, normal affect. SKIN: Warm, Dry, normal turgor, no rashes or lesions noted. (AIDEN DOBBINS) Course - Laboratory Result Diagrams: 10/07/18 17:50 10/07/18 17:50 <AIDEN DOBBINS - Last Filed: 10/08/18 02:00> - Laboratory Result Diagrams: 10/07/18 17:50 10/07/18 17:50 <FERMIN HEADLEY - Last Filed: 10/08/18 03:01> - Re-evaluation Re-evalutation: I called and contacted [facility] and spoke with her intake person, they state they do not have a bed reserved for her, they did not do a formal screening and their physician has not written any orders. They are concerned about patient's blood pressure and abdominal pain. I spoke with the patient and her friend who are at the bedside, the friend does not feel comfortable trying to re-presented to [facility] in case they do not accept her. Patient will be held here overnight so that our psychiatric team can formally consult her to come up with a better plan. Patient was treated with IM Bentyl for her abdominal pain. She does have leukocytosis of 14,000 however this is decreased from her last lab draw 3 days ago. She also has elevated glucose which is not uncommon for her. She states that she has run out of her clonidine patches, a 0.2 mg patch was placed on patient as she was hypertensive on arrival. 10/08/18 02:00 All home medication orders placed. Handoff given to GRACIE Chnadler. Patient resting with eyes closed after receiving 1 mg of IM Ativan. (AIDEN DOBBINS) - Vital Signs Vital signs: Temp Pulse Resp BP Pulse Ox 97.7 F 114 H 20 133/98 H 100 10/07/18 20:19 10/07/18 20:19 10/07/18 20:19 10/07/18 20:19 10/07/18 20:19 - Laboratory Laboratory results interpreted by me: 10/07/18 10/07/18 10/07/18 17:50 17:50 18:30 WBC 14.7 H MCH 25.9 L RDW 15.6 H Absolute Neutrophils 10.9 H Sodium 134.7 L Chloride 95 L Glucose 367 H Calcium 10.7 H Urine Glucose (UA) >=500 H Urine Ketones 80 H Urine Blood LARGE H Ur Leukocyte Esterase TRACE H Salicylates < 1.0 L Acetaminophen < 10 L Discharge <AIDEN DOBBINS - Last Filed: 10/08/18 02:00> <FERMIN HEADLEY - Last Filed: 10/08/18 03:01> - Discharge Clinical Impression: Cocaine use, Abnormal behavior Abdominal pain Qualifiers: Abdominal location: unspecified location Qualified Code(s): R10.9 - Unspecified abdominal pain Disposition: OTHER Referrals: ALCIDES,GLEN, PA-C [Primary Care Provider] - Follow up as needed
[2018-10-07] MEDS ORDERED: LORAZEPAM INJ 2 MG/1 ML VIAL IM ONE (23:23)
[2018-10-08] MEDS ORDERED: PANTOPRAZOLE SODIUM 40 MG TABLET.DR PO SCH (06:00)
[2018-10-08] MEDS ORDERED: METFORMIN HCL 500 MG TABLET PO SCH (08:00)
[2018-10-08] MEDS ORDERED: METOPROLOL TARTRATE 25 MG TABLET PO SCH (10:00)
[2018-10-08] MEDS ORDERED: AMLODIPINE BESYLATE 10 MG TABLET PO SCH (10:00)
[2018-10-08] MEDS ORDERED: LISINOPRIL 10 MG TABLET PO SCH (10:00)
[2018-10-08] MEDS ORDERED: INSULIN GLARGINE,HUM.REC.ANLOG 1,000 UNIT/10 ML VIAL SUBCUT SCH (10:00)
--- NOTE | 2018-10-08 10:03 | ER Document Report ---
Doctor's Note Notes: 10/08/18 10:01 Rounds: Patient presented complaining of abdominal pain and vomiting. She has had this on numerous previous visits to the emergency department. Known to have gastroparesis. Also wanting to be admitted to mental facility at [facility], but [facility] concerned about patient's blood pressure and her abdominal pain and vomiting. With noted that her until she was cleared medically. Patient says she is feeling a lot better this morning. No further vomiting. She had a slight leukocytosis at 14,000. Blood sugars are trending downward in the 200s. Patient's abdomen is soft and no tenderness noted anywhere. Patient appears to be medically stable for discharge. Stan Mina MD
[2018-10-08 10:29] VITALS: BP 116/74
--- NOTE | 2018-10-08 10:32 | PSYCHOLOGICAL NOTE ---
Psych Note - Psych Note Date seen by psych provider: 10/08/18 Time seen by psych provider: 07:25 - Chart review at 0725. Evaluation from [id number]. Psych Note: Reason for Consult: SI Contact Permissions: Friend Eyal Ibarra [phone] Patient is a 43 year old female who presented to the ED yesterday afternoon as a voluntary walk in for medical clearance to [facility] voluntary placement (concerns were abdominal pain, high BP, high pulse). When medical staff contacted [facility] they said they did not have a bed (meant it was voluntary status so walk in) and the friend did not feel comfortable taking patient if they weren't going to have a bed to accept her. Today patient was groggy and lethargic. She kept falling asleep. She would respond to her name being said which had to be done often to keep her awake. She was administered Ativan 1MG IM at 2337. She denied being on any current medications except for diabetes (insulin) and BP (Clonidine Patch). She denied current SI. She reported "I have not had it long, first thought about it when I got sick again 2 weeks ago." She denied having a plan and acknowledged "it is from frustration of being sick and not feeling well." She denied past attempts. She denied previous hospitalizations. She identified she has not be en sleeping well. She admitted to using Cocaine Saturday "snorted it, was so pitiful, so tired, tried to help ease the pain but it didn't do anything." UDS was positive for Cocaine and Opiates this visit and never for any other visit. She reported she was prescribed Dilaudid and admitted to using "nerve pills from a friend to try to get relief." Her Glucose was 367 when she arrived and dropped to 299 today at 0600 (high glucose can cause changes in mood and mental status). Patient was alert and oriented to self, person, place, time and situation once awake and Ativan wore off. Mood was more euthymic with congruent affect later in the day. She denied current SI/HI and previous attempts. She did not appear to be responding to internal stimuli as evidenced by answering questions appropriately when addressed and being able to express needs/wants. Thought processes were linear. Conversational speech was at first mumbled and slurred but as she woke up became within normal limits for rate, tone and prosody. Intellectual abilities are estimated to be average. Insight, judgment and impulse control were fair as evidenced by processing how her pain was the trigger to passive SI. She gave verbal consent to include friend in plan of care. Contacted via telephone and then came in person for transportation. Diagnosis: Pain Poor Sleep Passive SI High Glucose 311 (F32.9) Unspecified Depressive Disorder Impression/Plan: Patient is cleared from acute psychiatric services. She denied current SI/HI, admitted to passive SI on and off over the past couple weeks due to stomach issues and pain, denied making plans or preparations and denied previous attempts. No observed psychosis. She denied any outpatient behavioral health services in place currently. [facility] was contacted, they stated they had a female bed, patient could come to their facility for voluntary assessment, denied patient currently due to medical but she can do the voluntary assessment at any time even with the initial denial due to medical. She was provided with the outpatient MH resource sheet which highlighted I[facility] MCM and included a list of local outpatient providers. Her friend was included in plan of care and provided transportation. Consulted with Dr. Downs regarding the management and care of patient. ED Physician in agreement with recommendations.
[2018-10-12] MEDS ORDERED: CLONIDINE 0.2 MG/24 HR PATCH.TDWK TOP SCH (10:00)
== END 2018-10-08 10:29 | disposition home or self-care (01) ==
LOC: ER 12:47
DX: R45.851 Suicidal ideations (principal); F14.90 Cocaine use, unspecified, uncomplicated; F91.9 Conduct disorder, unspecified; R10.9 Unspecified abdominal pain; G47.9 Sleep disorder, unspecified; F32.9 Major depressive disorder, single episode, unspecified; E11.9 Type 2 diabetes mellitus without complications; E78.00 Pure hypercholesterolemia, unspecified; I10 Essential (primary) hypertension; Z86.14 Personal history of Methicillin resistant Staphylococcus aureus infection; Z90.49 Acquired absence of other specified parts of digestive tract
CPT/HCPCS: 93005; 99284; 96372; 96374; 36415; 82962; 80307 ×4; 84703; 85025; 80053; 81001; 93010; A9270 ×4; J0500; J3490 ×2; J2060; J1815

== ENCOUNTER 2019-01-05 02:41 | Emergency (ER) | payer MEDICARE, MEDICAID ==
[2019-01-05 03:59] LABS: APPEARANCE,URINE CLEAR; BILIRUBIN,URINE NEGATIVE (NEGATIVE); COLOR,URINE STRAW; GLUCOSE, URINE >=500 mg/dL (NEGATIVE); KETONES,URINE NEGATIVE (NEGATIVE); LEUKOCYTE ESTERASE,URINE NEGATIVE (NEGATIVE); NITRITE,URINE NEGATIVE (NEGATIVE); PROTEIN,URINE 30 mg/dL (NEGATIVE); UROBILINOGEN,URINE NEGATIVE mg/dL (<2.0)
[2019-01-05 04:26] LABS: ABSOLUTE BASOPHILS # (AUTO) 0.1 10^3/uL (0.0-0.2); ABSOLUTE EOSINOPHILS # (AUTO) 0.1 10^3/uL (0.0-0.6); ABSOLUTE LYMPHOCYTES (AUTO) 1.5 10^3/uL (0.5-4.7); ABSOLUTE MONOCYTES (AUTO) 0.7 10^3/uL (0.1-1.4); ABSOLUTE NEUT (AUTO) 9.1 10^3/uL (1.7-8.2); BASOPHILS % (AUTO) 0.7 % (0-2); EOSINOPHILS % (AUTO) 0.5 % (0-6); HEMATOCRIT 35.6 % (36.0-47.0); HEMOGLOBIN 11.5 g/dL (12.0-15.5); LYMPHOCYTES % (AUTO) 13.4 % (13-45); MEAN CORPUSCULAR HGB CONC 32.4 g/dL (32.0-36.0); MEAN CORPUSCULAR VOLUME 77 fl (80-97); MONOCYTES % (AUTO) 6.2 % (3-13); PLATELET COUNT 411 10^3/uL (150-450); RED CELL DISTRIBUTION WIDTH 18.7 % (11.5-14.0); SEGMENTED NEUTROPHILS % (AUTO) 79.2 % (42-78); TOTAL CELLS COUNTED % (AUTO) 100 %; WHITE BLOOD COUNT 11.4 10^3/uL (4.0-10.5)
[2019-01-05 05:14] LABS: ALBUMIN 4.6 g/dL (3.5-5.0); ALKALINE PHOSPHATASE 88 U/L (38-126); ANION GAP 11 (5-19); ASPARTATE AMINO TRANSFERASE 23 U/L (14-36); BILIRUBIN,DIRECT 0.3 mg/dL (0.0-0.4); BILIRUBIN,TOTAL 0.4 mg/dL (0.2-1.3); BLOOD UREA NITROGEN 16 mg/dL (7-20); CALCIUM 10.3 mg/dL (8.4-10.2); CARBON DIOXIDE 24 mmol/L (22-30); CHLORIDE 103 mmol/L (98-107); GLUCOSE 235 mg/dL (75-110); POTASSIUM 4.8 mmol/L (3.6-5.0); TOTAL PROTEIN 8.1 g/dL (6.3-8.2)
[2019-01-05] MEDS ORDERED: HALOPERIDOL LACTATE INJ 5 MG/1 ML VIAL IM ONE (06:38)
[2019-01-05] MEDS ORDERED: ONDANSETRON 4 MG TAB.RAPDIS PO ONE (06:39)
--- NOTE | 2019-01-05 07:16 | ER Document Report ---
ED General - General Chief Complaint: Abdominal Pain Stated Complaint: ABDOMINAL PAIN Time Seen by Provider: 01/05/19 06:08 Primary Care Provider: GLEN MCGRATH PA-C [Primary Care Provider] - Follow up as needed Notes: 43-year-old female with a history of cyclic vomiting states syndrome resents to the ER with vomiting. The patient was recently admitted for the same patient is diabetic and may have a component of gastroparesis and cyclic vomiting. She complains of diffuse abdominal fullness no specific pain continue nausea vomiting. Patient denies fever chills. Denies hematuria dysuria. Denies back pain denies black bloody or tarry stools. Complains that her discomfort is 10 out of 10 she really cannot be more specific than that. TRAVEL OUTSIDE OF THE [place] IN LAST 30 DAYS: No - Related Data Allergies/Adverse Reactions: metoclopramide HCl [From Reglan] Allergy (Unknown, Verified 12/21/18 14:43) Past Medical History - Social History Smoking Status: Former Smoker Chew tobacco use (# tins/day): No Frequency of alcohol use: Occasional Drug Abuse: None Family History: None, DM, Hypertension Patient has suicidal ideation: No Patient has homicidal ideation: No - Past Medical History Cardiac Medical History: Reports: Hx Hypercholesterolemia, Hx Hypertension Endocrine Medical History: Reports: Hx Diabetes Mellitus Type 2. Denies: Hx Diabetes Mellitus Type 1 Renal/ Medical History: Reports: Hx Renal Insufficiency. Denies: Hx Peritoneal Dialysis GI Medical History: Reports: Hx Gastroesophageal Reflux Disease, Hx Hiatal Hernia Musculoskeletal Medical History: Reports Hx Arthritis - Hand Skin Medical History: Reports Hx Eczema Psychiatric Medical History: Reports: Hx Anxiety, Hx Bipolar Disorder, Hx Depression Infectious Medical History: Reports: Hx MRSA Past Surgical History: Reports: Hx Cholecystectomy - Immunizations Immunizations up to date: Yes Hx Diphtheria, Pertussis, Tetanus Vaccination: Yes - unknown Hx Pneumococcal Vaccination: 05/04/10 Review of Systems - Review of Systems Constitutional: denies: Chills, Fever Gastrointestinal: Abdomen distended, Abdominal pain, Nausea, Vomiting Genitourinary: denies: Dysuria, Flank pain, Hematuria Musculoskeletal: denies: Back pain Neurological/Psychological: denies: Headaches -: Yes All other systems reviewed and negative Physical Exam - Vital signs Vitals: Temp Pulse Resp BP Pulse Ox 97.7 F 116 H 22 H 172/86 H 100 01/05/19 03:05 01/05/19 03:05 01/05/19 03:05 01/05/19 03:05 01/05/19 03:05 - Notes Notes: GENERAL_APPEARANCE: well_nourished, alert, cooperative, appears uncomfortable. VITALS: reviewed, see vital signs table. HEAD: no_swelling\tenderness on the head. EYES: PERRL, EOMI, conjunctiva_clear. NOSE: no_nasal_discharge. MOUTH: (-)decreased moisture. THROAT: no_tonsilar_inflammation, no_airway_obstruction. no_lymphadenopathy NECK: supple, no_neck_tenderness, (-)thyromegaly. BACK: no_back_tenderness. CHEST_WALL: no_chest_tenderness. LUNGS: no_wheezing, no_rales, no_rhonchi, (-)accessory muscle use, good air exchange bilateral. HEART: normal_rate, normal_rhythm, normal_S1, normal_S2, (-)S3, (-)S4, no_murmur, no_rub. ABDOMEN: mild Distention, soft, diffuse_abd_tenderness, (-)guarding, (- )rebound, no_organomegaly, no_abd_masses. EXTREMITIES: good pulses in all_extremities, no_swelling\tenderness in the extremities, no_edema. SKIN: warm, dry, good_color, no_rash. MENTAL_STATUS: speech_clear, oriented_X_3, normal_affect, responds_appropriately to questions. Course - Re-evaluation Re-evalutation: 01/05/19 07:17 43-year-old female with history of cyclic vomiting presents with severe nausea. Patient had a urinalysis done which showed no ketones. We will try to control her symptoms and nausea will try Zofran and some Haldol. Due to her frequent hospital visits and history nurses cannot get an IV for IV fluids. I do not believe a central line is indicated for somebody who does not look significantly dehydrated and has no ketonuria. 01/05/19 08:16 Patient feels much better. She still little uncomfortable but much better than she was. Patient is a frequent visitor to the emergency department. She has medicines at home. I think she is safe for discharge home - Vital Signs Vital signs: Temp Pulse Resp BP Pulse Ox 98.4 F 99 20 140/82 H 96 01/05/19 06:27 01/05/19 06:27 01/05/19 06:27 01/05/19 06:27 01/05/19 06:27 - Laboratory Result Diagrams: 01/05/19 03:55 01/05/19 04:45 Laboratory results interpreted by me: 01/05/19 01/05/19 01/05/19 03:23 03:30 03:55 WBC 11.4 H Hgb 11.5 L Hct 35.6 L MCV 77 L MCH 25.0 L RDW 18.7 H Seg Neutrophils % 79.2 H Absolute Neutrophils 9.1 H Est GFR (Non-Af Amer) Glucose POC Glucose 224 H Calcium Urine Protein 30 H Urine Glucose (UA) >=500 H 01/05/19 04:45 WBC Hgb Hct MCV MCH RDW Seg Neutrophils % Absolute Neutrophils Est GFR (Non-Af Amer) 56 L Glucose 235 H POC Glucose Calcium 10.3 H Urine Protein Urine Glucose (UA) Discharge - Discharge Clinical Impression: Gastroparesis due to DM Vomiting Qualifiers: Vomiting type: cyclical vomiting Vomiting Intractability: non-intractable Nausea presence: with nausea Qualified Code(s): G43.A0 - Cyclical vomiting, not intractable Condition: Good Disposition: HOME, SELF-CARE Instructions: Vomiting ([facility]) Referrals: GLEN MCGRATH PA-C [Primary Care Provider] - Follow up as needed
[2019-01-05 08:24] VITALS: BP 140/70
== END 2019-01-05 08:24 | disposition home or self-care (01) ==
LOC: ER 02:41
DX: E11.43 Type 2 diabetes mellitus with diabetic autonomic (poly)neuropathy (principal); K31.84 Gastroparesis; G43.A0 Cyclical vomiting, in migraine, not intractable; E78.00 Pure hypercholesterolemia, unspecified; I10 Essential (primary) hypertension; Z86.14 Personal history of Methicillin resistant Staphylococcus aureus infection
CPT/HCPCS: 36415; 82962; 83690; 85025; 81025; 80053; 81001; A9270; J1630; 96374; 99284; S0119

== ENCOUNTER 2019-01-12 04:48 | Observation (INO) | payer MEDICARE, MEDICAID ==
[2019-01-12] MEDS ORDERED: ONDANSETRON HCL INJ/PF 4 MG/2 ML SDV IV ONE (06:43)
[2019-01-12] MEDS ORDERED: NORMAL SALINE 1000 ML 1,000 ML IV ONE ×2 (06:43→09:21)
--- NOTE | 2019-01-12 06:46 | ER Document Report ---
ED Medical Screen (RME) - General Chief Complaint: Abdominal Pain Stated Complaint: ABDOMINAL PAIN Time Seen by Provider: 01/12/19 06:41 Primary Care Provider: GLEN MCGRATH PA-C [Primary Care Provider] - Follow up as needed Mode of Arrival: Ambulatory Information source: Patient Notes: This 43-year-old female presents emergency department with complaints of abdomi nal pain nausea and vomiting for the past 3 days. Patient has a history of chronic abdominal pain. Patient is also diabetic. Male letter bad side reports patient been vomiting for the past 3 days. Patient is not answering she is moaning and rolling in the bed TRAVEL OUTSIDE OF THE [place] IN LAST 30 DAYS: No - Related Data Allergies/Adverse Reactions: metoclopramide HCl [From Reglan] Allergy (Unknown, Verified 12/21/18 14:43) Past Medical History - Social History Family history: DM, Hypertension - Past Medical History Cardiac Medical History: Reports: Hx Hypercholesterolemia, Hx Hypertension Endocrine Medical History: Reports: Hx Diabetes Mellitus Type 2. Denies: Hx Diabetes Mellitus Type 1 Renal/ Medical History: Reports: Hx Renal Insufficiency. Denies: Hx Peritoneal Dialysis GI Medical History: Reports: Hx Gastroesophageal Reflux Disease, Hx Hiatal Hernia Musculoskeltal Medical History: Reports Hx Arthritis - Hand Skin Medical History: Reports Hx Eczema Psychiatric Medical History: Reports: Hx Anxiety, Hx Bipolar Disorder, Hx Depression Infectious Medical History: Reports: Hx MRSA Past Surgical History: Reports: Hx Cholecystectomy - Immunizations Immunizations up to date: Yes Hx Diphtheria, Pertussis, Tetanus Vaccination: Yes - unknown History of Influenza Vaccine for 02/2017 - 07/2017 Season: No Physical Exam - Vital signs Vitals: Temp Pulse Resp BP Pulse Ox 97.8 F 135 H 19 150/101 H 98 01/12/19 05:03 01/12/19 05:03 01/12/19 05:03 01/12/19 05:03 01/12/19 05:03 Course - Vital Signs Vital signs: Temp Pulse Resp BP Pulse Ox 97.8 F 135 H 19 150/101 H 98 01/12/19 05:03 01/12/19 05:03 01/12/19 05:03 01/12/19 05:03 01/12/19 05:03 Doctor's Discharge - Discharge Referrals: GLEN MCGRATH PA-C [Primary Care Provider] - Follow up as needed
[2019-01-12 07:17] LABS: APPEARANCE,URINE SLIGHTLY-CLOUDY; BILIRUBIN,URINE NEGATIVE (NEGATIVE); COLOR,URINE YELLOW; GLUCOSE, URINE >=500 mg/dL (NEGATIVE); KETONES,URINE 20 mg/dL (NEGATIVE); LEUKOCYTE ESTERASE,URINE NEGATIVE (NEGATIVE); NITRITE,URINE NEGATIVE (NEGATIVE); PROTEIN,URINE 100 mg/dL (NEGATIVE); URINE SPECIFIC GRAVITY 1.021; UROBILINOGEN,URINE NEGATIVE mg/dL (<2.0)
[2019-01-12] MEDS ORDERED: DIPHENHYDRAMINE HCL 50 MG/ML VIAL IV ONE ×2 (07:43→09:22)
[2019-01-12] MEDS ORDERED: HALOPERIDOL LACTATE INJ 5 MG/1 ML VIAL IV ONE ×2 (07:43→09:22)
--- NOTE | 2019-01-12 07:49 | ER Document Report ---
ED GI/ - General Chief Complaint: Abdominal Pain Stated Complaint: ABDOMINAL PAIN Time Seen by Provider: 01/12/19 06:41 Mode of Arrival: Ambulatory Information source: Patient, [facility] Records Notes: This 43-year-old female patient with diabetes, diabetic gastroparesis, cyclic vomiting, and chronic abdominal pain comes emergency room reporting onset yesterday of nausea vomiting abdominal pain. She tried taking her Zofran at home it did not help. She is well-known to the emergency room with numerous visits for this problem. She was admitted on 12/21/2018 through 12/26/2018, received Percocet while she was in the hospital. She was discharged with prescriptions for Zofran and Percocet 5 mg number 24 tablets. For some reason the Zofran was filled on 12/26/2018, but the Percocet was not filled until 01/05/2019. She did come to the emergency room on 01/05/2019 for the same problems and received a shot of Haldol, but no narcotics. Blood pressure is elevated, she has not been able to keep down her blood pressure medications at home. At this time she is rolling back and forth flopping around in her usual fashion, and begging for pain medication. In the past she had been comprehensively worked up, and it was determined that narcotics were part of her problem. Unfortunately she will occasionally get large doses of narcotics and will complicate her management. TRAVEL OUTSIDE OF THE [place] IN LAST 30 DAYS: No - Related Data Allergies/Adverse Reactions: metoclopramide HCl [From Reglan] Allergy (Unknown, Verified 12/21/18 14:43) Past Medical History - General Information source: Patient, [facility] Records - Social History Smoking Status: Unknown if Ever Smoked Cigarette use (# per day): No Chew tobacco use (# tins/day): No Smoking Education Provided: No Frequency of alcohol use: None Drug Abuse: None Occupation: Unemployed Lives with: Friend Family History: None, DM, Hypertension Patient has suicidal ideation: No Patient has homicidal ideation: No - Past Medical History Cardiac Medical History: Reports: Hx Hypercholesterolemia, Hx Hypertension Endocrine Medical History: Reports: Hx Diabetes Mellitus Type 2 Renal/ Medical History: Reports: Hx Renal Insufficiency GI Medical History: Reports: Hx Gastroesophageal Reflux Disease, Hx Hiatal Hernia Musculoskeletal Medical History: Reports Hx Arthritis - Hand Skin Medical History: Reports Hx Eczema Psychiatric Medical History: Reports: Hx Anxiety, Hx Bipolar Disorder, Hx Depression Infectious Medical History: Reports: Hx MRSA Past Surgical History: Reports: Hx Cholecystectomy - Immunizations Immunizations up to date: Yes Hx Diphtheria, Pertussis, Tetanus Vaccination: Yes - unknown Hx Pneumococcal Vaccination: 05/04/10 Review of Systems - Review of Systems Constitutional: No symptoms reported EENT: No symptoms reported Cardiovascular: No symptoms reported Respiratory: No symptoms reported Gastrointestinal: See HPI, Abdominal pain, Nausea, Vomiting Genitourinary: No symptoms reported Musculoskeletal: No symptoms reported Skin: No symptoms reported Hematologic/Lymphatic: No symptoms reported Neurological/Psychological: No symptoms reported Physical Exam - Vital signs Vitals: Temp Pulse Resp BP Pulse Ox 97.5 F 133 H 19 150/101 H 97 01/12/19 04:54 01/12/19 04:54 01/12/19 04:54 01/12/19 04:54 01/12/19 04:54 Interpretation: Hypertensive, Tachycardic - General General appearance: Alert In distress: Moderate Notes: Patient is rolling back and forth and writhing about nonstop on the stretcher at this time. Earlier she was walking around the room contorting herself. She does have an IV in her right shoulder at this time. - HEENT Head: Normocephalic, Atraumatic Eyes: Normal Pupils: PERRL - Respiratory Respiratory status: No respiratory distress Breath sounds: Normal - Cardiovascular Rhythm: Regular, Tachycardia - Abdominal Inspection: Obese Bowel sounds: Normal Tenderness: Tender - It is difficult to evaluate her abdomen, as she is rolling back and forth, when asked to lay on her back and remain still for just a few minutes, she eventually rolled over onto her back, but continued to twisting contort herself. She stated the abdominal pain was "everywhere". - Back Back: Normal - Extremities General upper extremity: Normal inspection General lower extremity: Normal inspection - Neurological Neuro grossly intact: Yes - Psychological Associated symptoms: Agitated, Anxious - Skin Skin Temperature: Warm Skin Moisture: Dry Skin Color: Normal Course - Vital Signs Vital signs: Temp Pulse Resp BP Pulse Ox 98.7 F 133 H 23 H 190/103 H 96 01/12/19 09:27 01/12/19 09:27 01/12/19 11:31 01/12/19 11:31 08/19/19 11:31 - Laboratory Result Diagrams: 01/12/19 08:43 01/12/19 08:43 Laboratory results interpreted by me: 01/12/19 01/12/19 01/12/19 07:00 08:43 08:43 WBC 15.8 H Hgb 11.6 L Hct 35.8 L MCV 77 L MCH 25.1 L RDW 18.3 H Seg Neutrophils % 89.3 H Lymphocytes % 6.7 L Absolute Neutrophils 14.1 H Potassium 5.2 H Carbon Dioxide 20 L Glucose 225 H Creatine Kinase 544 H Total Protein 8.5 H Urine Protein 100 H Urine Glucose (UA) >=500 H Urine Ketones 20 H - EKG Interpretation by Me EKG shows normal: Sinus rhythm, [place], Intervals, QRS Complexes. abnormal: ST-T Waves - Borderline T wave abnormalities Rate: Tachycardia - 122 When compared to previous EKG there are: No significant change - Consults Dr. Hernandez Time consulted: 12:18 Consulted provider: will come to ER Critical Care Note - Critical Care Note Total time excluding time spent on procedures (mins): 40 Discharge - Discharge Clinical Impression: Uncontrolled hypertension, Chronic abdominal pain, Tachycardia Intractable cyclical vomiting Qualifiers: Nausea presence: with nausea Qualified Code(s): G43.A1 - Cyclical vomiting, intractable Condition: Stable Disposition: ADMITTED OBSERVATION Admitting Provider: Mary (Hospitalist) Unit Admitted: Telemetry
[2019-01-12 09:15] LABS: ABSOLUTE LYMPHOCYTES (AUTO) 1.1 10^3/uL (0.5-4.7); ABSOLUTE MONOCYTES (AUTO) 0.6 10^3/uL (0.1-1.4); ABSOLUTE NEUT (AUTO) 14.1 10^3/uL (1.7-8.2); BASOPHILS % (AUTO) 0.2 % (0-2); HEMATOCRIT 35.8 % (36.0-47.0); HEMOGLOBIN 11.6 g/dL (12.0-15.5); LYMPHOCYTES % (AUTO) 6.7 % (13-45); MEAN CORPUSCULAR HEMOGLOBIN 25.1 pg (27.0-33.4); MEAN CORPUSCULAR HGB CONC 32.5 g/dL (32.0-36.0); MEAN CORPUSCULAR VOLUME 77 fl (80-97); MONOCYTES % (AUTO) 3.8 % (3-13); PLATELET COUNT 402 10^3/uL (150-450); RED BLOOD COUNT 4.64 10^6/uL (3.72-5.28); RED CELL DISTRIBUTION WIDTH 18.3 % (11.5-14.0); SEGMENTED NEUTROPHILS % (AUTO) 89.3 % (42-78); TOTAL CELLS COUNTED % (AUTO) 100 %; WHITE BLOOD COUNT 15.8 10^3/uL (4.0-10.5)
[2019-01-12 09:25] LABS: ALBUMIN 4.9 g/dL (3.5-5.0); ALKALINE PHOSPHATASE 114 U/L (38-126); ANION GAP 17 (5-19); ASPARTATE AMINO TRANSFERASE 28 U/L (14-36); BILIRUBIN,DIRECT 0.4 mg/dL (0.0-0.4); BILIRUBIN,TOTAL 0.7 mg/dL (0.2-1.3); BLOOD UREA NITROGEN 15 mg/dL (7-20); CALCIUM 10.1 mg/dL (8.4-10.2); CARBON DIOXIDE 20 mmol/L (22-30); CHLORIDE 103 mmol/L (98-107); CREATINE KINASE 544 U/L (30-135); GLUCOSE 225 mg/dL (75-110); POTASSIUM 5.2 mmol/L (3.6-5.0); TOTAL PROTEIN 8.5 g/dL (6.3-8.2)
[2019-01-12] MEDS ORDERED: METOPROLOL TARTRATE PF/INJ 5 MG/5 ML SDV IV ONE ×2 (09:31→10:57)
[2019-01-12] MEDS ORDERED: HYDRALAZINE HCL INJ/PF 20 MG/1 ML SDV IV ONE (11:23)
[2019-01-12] MEDS ORDERED: OXYCODONE-ACETAMINOPHEN 5-325 MG TABLET PO PRN (12:26)
[2019-01-12] MEDS ORDERED: ACETAMINOPHEN 325 MG TABLET PO PRN (12:26)
[2019-01-12] MEDS ORDERED: HYDRALAZINE HCL INJ/PF 20 MG/1 ML SDV IV PRN (12:26)
[2019-01-12] MEDS ORDERED: ALBUTEROL SULFATE 0.083% NEB 2.5 MG/3 ML AMPUL NEB PRN (12:26)
[2019-01-12] MEDS ORDERED: ONDANSETRON HCL INJ/PF 4 MG/2 ML SDV IV PRN (12:26)
[2019-01-12] MEDS ORDERED: NORMAL SALINE 1000 ML 1,000 ML IV PRN (12:26)
--- NOTE | 2019-01-12 13:09 | PDOC H&P ---
History of Present Illness Admission Date/PCP: GLEN MCGRATH PA-C Patient complains of: cyclic vomiting History of Present Illness: RUTH CA is a 43 year old female with a past medical history of diabetes, hypertension, and suspected diabetic gastroparesis, who presented to the ED complaining of abdominal pain and intractable nausea/vomiting since . When I went into the room to see the patient she was laying on the bed and not talking. Per ER doctor he had given her some Benadryl so she is sleepy. There is a family member at bedside but he states that he does not live with her and just brought her to the emergency room because she was not feeling well. He tells me that she started to have multiple nausea and vomiting yesterday and started complaining abdominal pain and she was moving around a lot and pain and so they brought her in today. He states that this is happened to her multiple times and has been in for multiple admission for same symptoms. She was most recently seen and admitted to the hospital in November 2018 and also September 2018 and earlier in January 2019. She later woke up briefly and told me that she has not thrown up since last night although yesterday she had a lot of nausea and vomiting. States she still has some belly pain-that is all over her abdomen- denies chest pain, shortness of breath, dizziness or lightness. She tells me that she was tested by GI doctors outpatient and it is not gastroparesis. She tells me that today she had not taken her blood pressure pills at all. Then she closed her eyes and went back to sleep. She did also tell me that she wants to eat and she is hungry. In the ED she was found to have a blood pressure greater than 200 systolic and diastolic greater than 100. She had received 2 5 mg IV Lopressor and hospitalist were called for consult and possible admission. Past Medical History Cardiac Medical History: Reports: Hyperlipidema, Hypertension Endocrine Medical History: Reports: Diabetes Mellitus Type 2 Denies: Diabetes Mellitus Type 1 GI Medical History: Reports: Gastroesophageal Reflux Disease, Hiatal Hernia Musculoskeltal Medical History: Reports: Arthritis - Hand Skin Medical History: Reports: Eczema Psychiatric Medical History: Reports: Bipolar Disorder, Depression Hematology: Reports: Anemia Infectious Medical History: Reports: Methicillin-Resistant Staph Aureus Past Surgical History Past Surgical History: Reports: Cholecystectomy Social History Lives with: Friend Smoking Status: Unknown if Ever Smoked Frequency of Alcohol Use: None Hx Recreational Drug Use: No Drugs: None Hx Prescription Drug Abuse: No - Advance Directive Resuscitation Status: Full Code Family History Family History: None, DM, Hypertension Parental Family History Reviewed: Yes Children Family History Reviewed: Unknown Sibling(s) Family History Reviewed.: Unknown Medication/Allergy Home Medications: Amlodipine Besylate [Norvasc 10 mg Tablet] 10 mg PO DAILY 08/16/18 Clonidine [Catapres-Tts 2 (0.2 mg/24 Hr) Transderm Ptch] 1 patch TOP DIALLO@1000 08/16/18 Dexlansoprazole [Dexilant 60 mg Capsule] 60 mg PO DAILY 08/16/18 Insulin Aspart [Novolog Flexpen] 8 unit SQ .+SLIDING SCALE MDD 50 UNITS 08/16/18 Insulin Glargine,Hum.rec.anlog [Lantus Insulin 100 Unit/1 ml 10 ml] 40 unit SQ QAM MDD 50 UNITS 08/16/18 Lisinopril [Zestril] 20 mg PO DAILY 08/16/18 Metoprolol Tartrate [Lopressor 25 mg Tablet] 12.5 mg PO Q12 10/03/18 Ondansetron [Zofran Odt 4 mg Tablet] 4 mg PO Q4HP PRN #30 tab.rapdis 12/26/18 Oxycodone HCl/Acetaminophen [Percocet 5-325 mg Tablet] 1 tab PO Q4HP PRN #24 tablet 12/26/18 Allergies/Adverse Reactions: metoclopramide HCl [From Reglan] Allergy (Unknown, Verified 12/21/18 14:43) Review of Systems All systems: reviewed and no additional remarkable complaints except as stated Constitutional: ABSENT: chills, fever(s) Eyes: PRESENT: visual disturbances Nose, Mouth, and Throat: ABSENT: headache(s) Cardiovascular: ABSENT: chest pain, dyspnea on exertion Respiratory: ABSENT: cough Gastrointestinal: PRESENT: abdominal pain, heartburn, nausea, vomiting. ABSENT: coffee ground emesis, diarrhea, hematemesis, hematochezia Genitourinary: ABSENT: dysuria Musculoskeletal: ABSENT: joint swelling Neurological: ABSENT: focal weakness, syncope Endocrine: ABSENT: polyuria Physical Exam Vital Signs: Temp Pulse Resp BP Pulse Ox 98.7 F 133 H 23 H 190/103 H 96 01/12/19 09:27 01/12/19 09:27 01/12/19 11:31 01/12/19 11:31 01/12/19 11:31 Intake & Output 01/11/19 01/12/19 01/13/19 06:59 06:59 06:59 Intake Total 1999 Balance 1999 Weight 155 lb 6.814 oz General appearance: PRESENT: no acute distress, obese Head exam: PRESENT: atraumatic, normocephalic Eye exam: PRESENT: EOMI. ABSENT: scleral icterus Ear exam: PRESENT: normal external ear exam Mouth exam: PRESENT: dry mucosa Neck exam: ABSENT: tracheal deviation Respiratory exam: PRESENT: clear to auscultation bernardo, symmetrical Cardiovascular exam: PRESENT: +S1, +S2 Pulses: ABSENT: +1 pedal pulses bilateral GI/Abdominal exam: PRESENT: normal bowel sounds, soft. ABSENT: tenderness Extremities exam: ABSENT: pedal edema Neurological exam: PRESENT: CN II-XII grossly intact Skin exam: PRESENT: dry, warm Results Laboratory Results: 01/12/19 08:43 01/12/19 08:43 01/12/19 01/12/19 01/12/19 07:00 08:43 08:43 WBC 15.8 H RBC 4.64 Hgb 11.6 L Hct 35.8 L MCV 77 L MCH 25.1 L MCHC 32.5 RDW 18.3 H Plt Count 402 Seg Neutrophils % 89.3 H Lymphocytes % 6.7 L Monocytes % 3.8 Eosinophils % 0.0 Basophils % 0.2 Absolute Neutrophils 14.1 H Absolute Lymphocytes 1.1 Absolute Monocytes 0.6 Absolute Eosinophils 0.0 Absolute Basophils 0.0 Sodium 139.8 Potassium 5.2 H Chloride 103 Carbon Dioxide 20 L Anion Gap 17 BUN 15 Creatinine 0.97 Est GFR ( Amer) > 60 Est GFR (Non-Af Amer) > 60 Glucose 225 H Calcium 10.1 Total Bilirubin 0.7 AST 28 Alkaline Phosphatase 114 Total Protein 8.5 H Albumin 4.9 Serum HCG, Qual Urine Color YELLOW Urine Appearance SLIGHTLY-CLOUDY Urine pH 7.0 Ur Specific [place] 1.021 Urine Protein 100 H Urine Glucose (UA) >=500 H Urine Ketones 20 H Urine Blood NEGATIVE Urine Nitrite NEGATIVE Ur Leukocyte Esterase NEGATIVE Urine WBC (Auto) 2 Urine RBC (Auto) 1 01/12/19 08:43 WBC RBC Hgb Hct MCV MCH MCHC RDW Plt Count Seg Neutrophils % Lymphocytes % Monocytes % Eosinophils % Basophils % Absolute Neutrophils Absolute Lymphocytes Absolute Monocytes Absolute Eosinophils Absolute Basophils Sodium Potassium Chloride Carbon Dioxide Anion Gap BUN Creatinine Est GFR ( Amer) Est GFR (Non-Af Amer) Glucose Calcium Total Bilirubin AST Alkaline Phosphatase Total Protein Albumin Serum HCG, Qual NEGATIVE Urine Color Urine Appearance Urine pH Ur Specific [place] Urine Protein Urine Glucose (UA) Urine Ketones Urine Blood Urine Nitrite Ur Leukocyte Esterase Urine WBC (Auto) Urine RBC (Auto) 01/12/19 01/12/19 08:43 08:43 Creatine Kinase 544 H Troponin I < 0.012 Assessment and Plan - Diagnosis (1) Chronic abdominal pain Is this a current diagnosis for this admission?: Yes (2) Intractable cyclical vomiting Qualifiers: Nausea presence: with nausea Qualified Code(s): G43.A1 - Cyclical vomiting, intractable Is this a current diagnosis for this admission?: Yes (3) Uncontrolled hypertension Is this a current diagnosis for this admission?: Yes (4) Bipolar 1 disorder, depressed, moderate Is this a current diagnosis for this admission?: Yes (5) Hyperlipidemia Qualifiers: Hyperlipidemia type: unspecified Qualified Code(s): E78.5 - Hyperlipidemia, unspecified Is this a current diagnosis for this admission?: Yes (6) Leukocytosis Is this a current diagnosis for this admission?: Yes (7) Type 2 diabetes mellitus Is this a current diagnosis for this admission?: Yes - Time Time Spent with patient: 35 or more minutes Anticipated discharge: Home Within: within 48 hours - Inpatient Certification Based on my medical assessment, after consideration of the patient's comorbidities, presenting symptoms, or acuity I expect that the services needed warrant INPATIENT care.: Yes Medical Necessity: Failure to Improve With Outpatient Therapy, Need For Co ntinuous Telemetry Monitoring, Risk of Complication if Not Cared For in Hospital - Plan Summary Plan Summary: 43-year-old female who is been admitted multiple times in the past 9 months for abdominal pain, intractable nausea vomiting and uncontrolled hypertension, who presented to the hospital again for same reason. She had CT abdomen pelvis done twice since September and November of this year. She will be placed in observation for blood pressure control as her nausea vomiting is improved. Abdominal pain-unclear etiology-given her A1c that is elevated greater than 9 within the last 2 months it is a high possibility that she has gastroparesis. She was sleeping when I saw her and woke up and told me that she had a work-up done outpatient and it is not gastroparesis. She had Reglan listed as an allergy in her list and I am not sure if this is correct or not. I was unable to verify this. She would have benefited from Reglan if she does have some gastroparesis. At this time due to her nausea and vomiting we will add Zofran IV. We will give her some IV fluids. I am not sure if we need an abdominal CT because she has had 2 already. If her symptoms worsen then we will go ahead and scanner. At this time on exam she did not jump her flank sharp call out in pain on palpation. She also tell me that her nausea and vomiting has improved and she has not had any vomiting this morning. Uncontrolled hypertension-she is on multiple medications at home but has not taken any due to her nausea and vomiting overnight. Her blood pressure on arrival was greater than 190 on arrival to the ER. All other medications are not reconciled at this time. She is unable to give me the dosing of the medications. I have called pharmacy and asked them to reconcile her home meds so we can restart them. I started on some clear liquid diet that she should be able to take some of her home meds p.o. At this time I will start her on 20 mg IV hydralazine every 4 hours as needed she was tachycardic but I believe this is secondary to her nausea and vomiting and abdominal pain. We will monitor this. If we need to use Lopressor we will. Leukocytosis-on arrival 15,000. She has not complained of any fever and does not tell me about any recent exposure to illnesses. I think this is all reactive. We will check her CBC again in the morning. In the meantime we may consider drawing some blood cultures and urine cultures. We will also get a chest x-ray. While I was talking to the patient and about leave the room she tells me why she needs to stay in the hospital because she is feeling much better from a nausea vomiting. I told her that her blood pressure is out of control and we need to get a better control of it before we discharge her. We will place her in observation just for 24 to 48 hours and control her blood pressure better before discharging her home.
[2019-01-12] MEDS ORDERED: METOPROLOL TARTRATE 25 MG TABLET PO SCH (14:00)
--- NOTE | 2019-01-12 14:53 | RADIOLOGY REPORT (SQ) ---
EXAM DESCRIPTION: CHEST SINGLE VIEW COMPLETED DATE/TIME: 01/12/2019 2:44 pm REASON FOR STUDY: shortness of breath COMPARISON: 10/01/2018 EXAM PARAMETERS: NUMBER OF VIEWS: One view. TECHNIQUE: Single frontal radiographic view of the chest acquired. RADIATION DOSE: NA LIMITATIONS: None. FINDINGS: LUNGS AND PLEURA: No opacities, masses or pneumothorax. No pleural effusion. MEDIASTINUM AND HILAR STRUCTURES: No masses. Contour normal. HEART AND VASCULAR STRUCTURES: Heart normal in size. Normal vasculature. BONES: No acute findings. HARDWARE: None in the chest. OTHER: No other significant finding. IMPRESSION: NO ACUTE RADIOGRAPHIC FINDING IN THE CHEST. TECHNICAL DOCUMENTATION: JOB ID: [id number] [employer]- All Rights Reserved Reading location - IP/workstation name: [email or web address]
--- NOTE | 2019-01-12 15:49 | EKG REPORT ---
SEVERITY:- ABNORMAL ECG - SINUS TACHYCARDIA CONSIDER ANTEROSEPTAL INFARCT BORDERLINE T WAVE ABNORMALITIES : Confirmed by: Buffy Guajardo MD 12-Jan-2019 15:49:14
[2019-01-12] MEDS: AMLODIPINE BESYLATE 10 MG TABLET PO SCH (16:32)
[2019-01-12] MEDS: LISINOPRIL 10 MG TABLET PO SCH (16:33)
[2019-01-12] MEDS: FAMOTIDINE INJ/PF 20 MG/2 ML SDV IV SCH ×2 (16:46→21:28)
[2019-01-12] MEDS: HEPARIN SOD (PORCINE) 5,000 UNIT/ML 1 ML VIAL SUBCUT SCH ×2 (16:46→21:28)
[2019-01-12] MEDS ORDERED: GLUCAGON,HUMAN RECOMB 1 MG INJ IM PRN (17:51)
[2019-01-12] MEDS ORDERED: DEXTROSE 40% GEL 15 GM TUBE PO PRN ×2 (17:51)
[2019-01-12] MEDS ORDERED: DEXTROSE 50%-WATER 25 GM/50 ML DISP.SYRIN IV PRN ×2 (17:51)
[2019-01-12] MEDS: METOPROLOL TARTRATE 25 MG TABLET PO SCH (21:28)
[2019-01-12] MEDS ORDERED: INSULIN GLARGINE,HUM.REC.ANLOG 1,000 UNIT/10 ML VIAL SUBCUT SCH (22:00)
[2019-01-12] MEDS: INSULIN LISPRO 100 UNIT/ML 3 ML VIAL SUBCUT SCH (22:06)
[2019-01-13] MEDS: HEPARIN SOD (PORCINE) 5,000 UNIT/ML 1 ML VIAL SUBCUT SCH ×2 (05:19→13:26)
[2019-01-13 05:24] LABS: HEMATOCRIT 33.9 % (36.0-47.0); HEMOGLOBIN 10.8 g/dL (12.0-15.5); MEAN CORPUSCULAR HEMOGLOBIN 24.4 pg (27.0-33.4); MEAN CORPUSCULAR HGB CONC 31.8 g/dL (32.0-36.0); MEAN CORPUSCULAR VOLUME 77 fl (80-97); PLATELET COUNT 338 10^3/uL (150-450); RED BLOOD COUNT 4.42 10^6/uL (3.72-5.28); RED CELL DISTRIBUTION WIDTH 18.3 % (11.5-14.0); WHITE BLOOD COUNT 11.9 10^3/uL (4.0-10.5)
[2019-01-13 05:53] LABS: ANION GAP 9 (5-19); BLOOD UREA NITROGEN 18 mg/dL (7-20); CALCIUM 9.3 mg/dL (8.4-10.2); CARBON DIOXIDE 21 mmol/L (22-30); CHLORIDE 108 mmol/L (98-107); GLUCOSE 108 mg/dL (75-110)
[2019-01-13 06:01] LABS: ARTERIAL BLOOD BASE EXCESS -2.8 mmol/L; ARTERIAL BLOOD H2CO3 0.98 mmol/L (1.05-1.35); ARTERIAL BLOOD O2 SATURATION 97.5 % (94-98); ARTERIAL BLOOD PCO2 32.6 mmHg (35-45); ARTERIAL BLOOD PH 7.43 (7.35-7.45)
[2019-01-13 06:02] LABS: ARTERIAL BLOOD FIO2 ROOM AIR
[2019-01-13 06:16] LABS: POTASSIUM 3.9 mmol/L (3.6-5.0)
[2019-01-13] MEDS: INSULIN LISPRO 100 UNIT/ML 3 ML VIAL SUBCUT SCH ×2 (07:51→12:20)
--- NOTE | 2019-01-13 09:48 | RADIOLOGY REPORT (SQ) ---
EXAM DESCRIPTION: CT ABD/PELVIS NO ORAL OR IV COMPLETED DATE/TIME: 01/13/2019 9:00 am REASON FOR STUDY: abd pain COMPARISON: 12/22/2018 TECHNIQUE: CT scan of the abdomen and pelvis performed without intravenous or oral contrast. Images reviewed with lung, soft tissue, and bone windows. Reconstructed coronal and sagittal MPR images revi ewed. All images stored on PACS. All CT scanners at this facility use dose modulation, iterative reconstruction, and/or weight based d osing when appropriate to reduce radiation dose to as low as reasonably achievable (ALARA). [facility]: Dose Right [facility]: CareDose [facility]: Dose Right [facility]: Teradose 4D [facility]: Funifi RADIATION DOSE: CT Rad equipment meets quality standard of care and radiation dose reduction techniq ues were employed. CTDIvol: 6.8 mGy. DLP: 360 mGy-cm.mGy. LIMITATIONS: None. FINDINGS: LOWER CHEST: No significant findings. No nodules or infiltrates. NON-CONTRASTED LIVER, SPLEEN, ADRENALS: Evaluation limited by lack of IV contrast. No identified sign ificant masses. PANCREAS: No masses. No peripancreatic inflammatory changes. GALLBLADDER: Surgically absent. RIGHT KIDNEY AND URETER: No suspicious masses. Assessment limited by lack of IV contrast. No signif icant calcifications. No hydronephrosis or hydroureter. LEFT KIDNEY AND URETER: No suspicious masses. Assessment limited by lack of IV contrast. No signifi cant calcifications. No hydronephrosis or hydroureter. AORTA AND RETROPERITONEUM: No aneurysm. No retroperitoneal masses or adenopathy. BOWEL AND PERITONEAL CAVITY: No obvious masses or inflammatory changes. No free fluid. APPENDIX: Normal. PELVIS, BLADDER, AND ABDOMINAL WALL:No abnormal masses. No free fluid. Bladder normal. BONES: No significant findings. OTHER: No other significant finding. IMPRESSION: NO SIGNIFICANT OR ACUTE PROCESS IN THE ABDOMEN OR PELVIS. COMMENT: Quality ID # [id number]: Final reports with documentation of one or more dose reduction techniques (e.g., Automated exposure control, adjustment of the mA and/or kV according to patient size, use of iterative reconstruction technique) TECHNICAL DOCUMENTATION: JOB ID: [id number] [employer]- All Rights Reserved Reading location - IP/workstation name: [email or web address]
[2019-01-13] MEDS: LISINOPRIL 10 MG TABLET PO SCH (10:35)
[2019-01-13] MEDS: AMLODIPINE BESYLATE 10 MG TABLET PO SCH (10:35)
[2019-01-13] MEDS: METOPROLOL TARTRATE 25 MG TABLET PO SCH (10:37)
[2019-01-13] MEDS: FAMOTIDINE INJ/PF 20 MG/2 ML SDV IV SCH (10:38)
[2019-01-13] MEDS ORDERED: (PENDING PHARMACY ID) (Lisinopril [Zestril] 20 MG) PO SCH (13:15)
--- NOTE | 2019-01-13 13:23 | PDOC DISCHARGE SUMMARY ---
General - Admit/Disc Date/PCP Admission Date/Primary Care Provider: 01/12/19 13:04 GLEN MCGRATH PA-C Discharge Date: 01/13/19 - Discharge Diagnosis (1) Chronic abdominal pain Is this a current diagnosis for this admission?: Yes Summary: 01/13/2019-patient admitted with chronic abdominal pain which was resolved now. Able to tolerate the diet (2) Uncontrolled hypertension Is this a current diagnosis for this admission?: Yes Summary: 01/13/2019-patient came in with uncontrolled hypertension which was resolved today. Latest blood pressure is 121/70. Patient advised to be compliant with medications. (3) Type 2 diabetes mellitus Is this a current diagnosis for this admission?: Yes Summary: 01/13/2019-patient has history of type 2 diabetes mellitus. Diet exercise weight loss lifestyle modifications are discussed with the patient. Blood sugar today is 110. (4) Leukocytosis Is this a current diagnosis for this admission?: Yes Summary: 01/13/2019-WBC count at the time of admission is 15,900 improved to 11,900 today. Leukocytosis most likely reactive. - Additional Information Resuscitation Status: Full Code Discharge Diet: Diabetic Discharge Activity: Activity As Tolerated Home Medications: Amlodipine Besylate [Norvasc 10 mg Tablet] 10 mg PO DAILY 08/16/18 Clonidine [Catapres-Tts 2 (0.2 mg/24 Hr) Transderm [facility]] 1 patch TOP DIALLO@1000 08/16/18 Dexlansoprazole [Dexilant 60 mg Capsule] 60 mg PO DAILY 08/16/18 Insulin Aspart [Novolog Flexpen] 0 unit SQ .SLIDING SCALE MDD 50 UNITS 08/16/18 Insulin Glargine,Hum.rec.anlog [Lantus Insulin 100 Unit/1 ml 10 ml] 50 unit SQ QAM MDD 50 UNITS 08/16/18 Lisinopril [Zestril] 20 mg PO DAILY 08/16/18 Metoprolol Tartrate [Lopressor 25 mg Tablet] 12.5 mg PO Q12 10/03/18 Ondansetron [Zofran Odt 4 mg Tablet] 4 mg PO Q4HP PRN #30 tab.rapdis 12/26/18 Oxycodone HCl/Acetaminophen [Percocet 5-325 mg Tablet] 1 tab PO Q4HP PRN #24 tablet 08/02/19 History of Present Illness History of Present Illness: RUTH CA is a 43 year old female 43 year old female with a past medical history of diabetes, hypertension, and suspected diabetic gastroparesis, who presented to the ED complaining of abdominal pain and intractable nausea/vomiting since yesterday. When I went into the room to see the patient she was laying on the bed and not talking. Per ER doctor he had given her some Benadryl so she is sleepy. There is a family member at bedside but he states that he does not live with her and just brought her to the emergency room because she was not feeling well. He tells me that she started to have multiple nausea and vomiting yesterday and started complaining abdominal pain and she was moving around a lot and pain and so they brought her in today. He states that this is happened to her multiple times and has been in for multiple admission for same symptoms. She was most recently seen and admitted to the hospital in November 2018 and also September 2018 and earlier in January 2019. She later woke up briefly and told me that she has not thrown up since last night although yesterday she had a lot of nausea and vomiting. States she still has some belly pain-that is all over her abdomen-denies chest pain, shortness of breath, dizziness or lightness. She tells me that she was tested by GI doctors outpatient and it is not gastroparesis. She tells me that today she had not taken her blood pressure pills at all. Then she closed her eyes and went back to sleep. She did also tell me that she wants to eat and she is hungry. In the ED she was found to have a blood pressure greater than 200 systolic and diastolic greater than 100. She had received 2 5 mg IV Lopressor and hospitalist were called for consult and possible admission. Hospital Course Hospital Course: 01/13/[id number]-rbfq-old female admitted with abdominal pains CT abdominal pelvis came back negative today. Patient is able to tolerate the diet well. Expressing desire to go home today. Patient was strongly advised to follow-up with primary care physician in 3 to 5 days. Physical Exam Vital Signs: Temp Pulse Resp BP Pulse Ox 97.6 F 90 16 98/63 L 100 01/13/19 08:31 01/13/19 10:12 01/13/19 10:12 01/13/19 08:31 01/13/19 10:12 Intake & Output 01/12/19 01/13/19 01/14/19 06:59 06:59 06:59 Intake Total 2620 Balance 2620 Weight 70.5 kg 73.8 kg General appearance: PRESENT: no acute distress, obese Head exam: PRESENT: atraumatic Eye exam: PRESENT: PERRLA Mouth exam: PRESENT: moist, tongue midline Teeth exam: PRESENT: poor dentation Neck exam: ABSENT: carotid bruit, JVD, lymphadenopathy, thyromegaly Respiratory exam: PRESENT: decreased breath sounds Cardiovascular exam: PRESENT: RRR. ABSENT: diastolic murmur, rubs, systolic murmur GI/Abdominal exam: PRESENT: normal bowel sounds, soft. ABSENT: distended, guarding, mass, organolmegaly, rebound, tenderness Rectal exam: PRESENT: deferred Extremities exam: PRESENT: full ROM. ABSENT: calf tenderness, clubbing, pedal edema Neurological exam: PRESENT: alert, awake, oriented to person, oriented to place, oriented to time, oriented to situation, CN II-XII grossly intact. ABSENT: motor sensory deficit Psychiatric exam: PRESENT: agitated Results Laboratory Results: 01/13/19 05:11 01/13/19 05:11 01/13/19 01/13/19 01/13/19 05:11 05:11 05:40 WBC 11.9 H RBC 4.42 Hgb 10.8 L Hct 33.9 L MCV 77 L MCH 24.4 L MCHC 31.8 L RDW 18.3 H Plt Count 338 Carbonic Acid 0.98 L HCO3/H2CO3 Ratio 21:1 ABG pH 7.43 ABG pCO2 32.6 L ABG pO2 95.0 ABG HCO3 21.0 ABG O2 Saturation 97.5 ABG Base Excess -2.8 FiO2 ROOM AIR Sodium 138.1 Potassium 3.9 D Chloride 108 H Carbon Dioxide 21 L Anion Gap 9 BUN 18 Creatinine 1.16 Est GFR ( Amer) > 60 Est GFR (Non-Af Amer) 51 L Glucose 108 Calcium 9.3 Magnesium 1.9 01/12/19 07:00 Clean Catch Midstream Urine Culture - Final Mixed Urogenital Antonina 01/12/19 01/12/19 01/12/19 08:43 08:43 20:25 Creatine Kinase 544 H Troponin I < 0.012 0.021 01/12/19 01/13/19 23:06 05:11 Creatine Kinase Troponin I 0.014 0.013 Impressions: Chest X-Ray 01/12/19 00:00 IMPRESSION: NO ACUTE RADIOGRAPHIC FINDING IN THE CHEST. Abdomen/Pelvis CT 01/13/19 00:00 IMPRESSION: NO SIGNIFICANT OR ACUTE PROCESS IN THE ABDOMEN OR PELVIS. Qualifiers - * PATIENT BEING DISCHARGED WITH ANY OF THE FOLLOWING DIAGNOSIS: No VTE patient discharged on overlapping Therapy?: No Acute Heart Failure - Is this a Heart Failure Patient?: No Plan Time Spent: Less than 30 Minutes
[2019-01-13 13:32] VITALS: BP 119/73
[2019-01-13] MEDS ORDERED: LISINOPRIL 10 MG TABLET PO SCH (14:00)
== END 2019-01-13 15:08 | disposition home or self-care (01) ==
LOC: ER 04:48 → EH 13:04 → 4N 17:05
PROVIDERS: ADMIT Family Medicine; ATTEND Family Medicine
DX: G89.29 Other chronic pain (principal); R10.9 Unspecified abdominal pain; I10 Essential (primary) hypertension; E11.9 Type 2 diabetes mellitus without complications; D72.829 Elevated white blood cell count, unspecified; K21.9 Gastro-esophageal reflux disease without esophagitis; E66.9 Obesity, unspecified; E78.5 Hyperlipidemia, unspecified; F31.9 Bipolar disorder, unspecified; G43.A1 Cyclical vomiting, in migraine, intractable; R00.0 Tachycardia, unspecified; R94.31 Abnormal electrocardiogram [ECG] [EKG]; Z79.899 Other long term (current) drug therapy; Z87.19 Personal history of other diseases of the digestive system; Z86.14 Personal history of Methicillin resistant Staphylococcus aureus infection; Z90.49 Acquired absence of other specified parts of digestive tract; Z79.4 Long term (current) use of insulin; Z88.8 Allergy status to other drugs, medicaments and biological substances
CPT/HCPCS: 93005; 99291; 36415 ×2; 87040 ×2; 87086; 82962 ×2; 82803; 82550; 83735; 84703; 85025; 85027; 80048; 80053; 81001; 84484 ×2; 71045; 74176; 93010; 36600; G0378 ×3; J1644; J1200; J1630; J0360; J3490; A9270 ×3; J2405; J7030; S0028 ×2

== ENCOUNTER 2019-02-10 09:48 | Emergency (ER) | payer MEDICARE, MEDICAID ==
[2019-02-10] MEDS ORDERED: DIPHENHYDRAMINE HCL 50 MG/ML VIAL IV ONE ×2 (10:18→13:33)
[2019-02-10] MEDS ORDERED: NORMAL SALINE 1000 ML 1,000 ML IV ONE (10:18)
[2019-02-10] MEDS ORDERED: HALOPERIDOL LACTATE INJ 5 MG/1 ML VIAL IV ONE (10:18)
[2019-02-10 11:09] LABS: ABSOLUTE LYMPHOCYTES (AUTO) 2.1 10^3/uL (0.5-4.7); ABSOLUTE MONOCYTES (AUTO) 0.8 10^3/uL (0.1-1.4); ABSOLUTE NEUT (AUTO) 7.5 10^3/uL (1.7-8.2); BASOPHILS % (AUTO) 0.4 % (0-2); EOSINOPHILS % (AUTO) 0.2 % (0-6); HEMATOCRIT 40.1 % (36.0-47.0); HEMOGLOBIN 13.3 g/dL (12.0-15.5); LYMPHOCYTES % (AUTO) 20.1 % (13-45); MEAN CORPUSCULAR HEMOGLOBIN 25.2 pg (27.0-33.4); MEAN CORPUSCULAR HGB CONC 33.1 g/dL (32.0-36.0); MEAN CORPUSCULAR VOLUME 76 fl (80-97); MONOCYTES % (AUTO) 7.5 % (3-13); PLATELET COUNT 363 10^3/uL (150-450); RED BLOOD COUNT 5.27 10^6/uL (3.72-5.28); RED CELL DISTRIBUTION WIDTH 17.6 % (11.5-14.0); SEGMENTED NEUTROPHILS % (AUTO) 71.8 % (42-78); TOTAL CELLS COUNTED % (AUTO) 100 %; WHITE BLOOD COUNT 10.4 10^3/uL (4.0-10.5)
--- NOTE | 2019-02-10 11:19 | ER Document Report ---
ED GI/ - General Chief Complaint: Nausea/Vomiting Stated Complaint: ABDOMINAL PAIN Time Seen by Provider: 02/10/19 10:11 Primary Care Provider: GLEN MCGRATH PA-C [Primary Care Provider] - Follow up as needed Notes: 43-year-old female with a history of chronic abdominal pain and possible gastroparesis presents to the ER complaining of nausea vomiting that started at 5 AM. She did not has had this on and off in the past. Patient denies fever chills cough or sore throat denies chest pain or shortness breath, is of epigastric discomfort. States she is vomited several times. Denies back pain. Rates her pain as 10 out of 10. This however is similar in character to prior episodes she has had and gets this often she states often hot showers help at home. TRAVEL OUTSIDE OF THE [place] IN LAST 30 DAYS: No - Related Data Allergies/Adverse Reactions: metoclopramide HCl [From Reglan] Allergy (Unknown, Verified 02/10/19 09:49) Past Medical History - Social History Smoking Status: Unknown if Ever Smoked Family History: None, DM, Hypertension - Past Medical History Cardiac Medical History: Reports: Hx Hypercholesterolemia, Hx Hypertension Endocrine Medical History: Reports: Hx Diabetes Mellitus Type 2. Denies: Hx Diabetes Mellitus Type 1 Renal/ Medical History: Reports: Hx Renal Insufficiency. Denies: Hx Peritoneal Dialysis GI Medical History: Reports: Hx Gastroesophageal Reflux Disease, Hx Hiatal Hernia Musculoskeletal Medical History: Reports Hx Arthritis Skin Medical History: Reports Hx Eczema Psychiatric Medical History: Reports: Hx Anxiety, Hx Bipolar Disorder, Hx Depression Infectious Medical History: Reports: Hx MRSA Past Surgical History: Reports: Hx Cholecystectomy - Immunizations Immunizations up to date: Yes Hx Diphtheria, Pertussis, Tetanus Vaccination: Yes - unknown Hx Pneumococcal Vaccination: 05/04/10 Review of Systems - Review of Systems Constitutional: denies: Chills, Fever Cardiovascular: denies: Chest pain Gastrointestinal: Abdomen distended, Abdominal pain, Nausea, Vomiting. denies: Diarrhea Neurological/Psychological: Anxiety. denies: Headaches -: Yes All other systems reviewed and negative Physical Exam - Vital signs Vitals: Temp Pulse Resp BP Pulse Ox 99.3 F 124 H 22 H 214/118 H 95 02/10/19 09:53 02/10/19 09:53 02/10/19 09:53 02/10/19 09:53 02/10/19 09:53 - Notes Notes: GENERAL_APPEARANCE: well_nourished, alert, cooperative, she is screaming loudly sitting on the floor rocking back and forth. VITALS: reviewed, see vital signs table. HEAD: no_swelling\tenderness on the head. EYES: PERRL, EOMI, conjunctiva_clear. NOSE: no_nasal_discharge. MOUTH: (-)decreased moisture. THROAT: no_tonsilar_inflammation, no_airway_obstruction. no_lymphadenopathy NECK: supple, no_neck_tenderness, (-)thyromegaly. BACK: no_back_tenderness. CHEST_WALL: no_chest_tenderness. LUNGS: no_wheezing, no_rales, no_rhonchi, (-)accessory muscle use, good air exchange bilateral. HEART: normal_rate, normal_rhythm, normal_S1, normal_S2, (-)S3, (-)S4, no_murmur, no_rub. ABDOMEN: normal_BS, soft, epigastric_abd_tenderness, (-)guarding, (-)rebound, no_organomegaly, no_abd_masses. EXTREMITIES: good pulses in all_extremities, no_swelling\tenderness in the extremities, no_edema. SKIN: warm, dry, good_color, no_rash. MENTAL_STATUS: speech_clear, oriented_X_3, 3 chronic_affect, re sponds_appropriately to questions. Course - Re-evaluation Re-evalutation: 02/10/19 11:19 -year-old female presents with acute on chronic abdominal pain and vomiting. Looking back at the patient's prior ER visit this is been fairly consistent. We will try to check some generalized blood work if we can give her some IV fluids Haldol and Benadryl. The history is very consistent with gastroparesis. Patient is a known diabetic. The patient states she had a test and stated it was not gastroparesis though the clinical history seems strongly suggest that it is. This may be cyclic vomiting. Abdominal migraine. The patient had mild improvement with fluids and medications. 02/10/19 15:49 The patient had some mild improvement with the meds but still has nausea at this is likely due to her chronic gastroparesis we will discharge her home with some Phenergan and have her follow-up as needed. Advised her to take a hot shower when she gets home. - Vital Signs Vital signs: Temp Pulse Resp BP Pulse Ox 98.1 F 97 16 214/121 H 98 02/10/19 13:26 02/10/19 13:26 02/10/19 13:26 02/10/19 14:16 02/10/19 13:26 - Laboratory Result Diagrams: 02/10/19 10:48 02/10/19 10:48 Laboratory results interpreted by me: 02/10/19 02/10/19 10:48 10:48 MCV 76 L MCH 25.2 L RDW 17.6 H Carbon Dioxide 21 L Glucose 212 H Calcium 10.6 H Total Protein 9.7 H Albumin 5.2 H Discharge - Discharge Clinical Impression: Intractable cyclical vomiting Condition: Good Disposition: HOME, SELF-CARE Instructions: Vomiting ([facility]), Nausea or Vomiting, Nonspecific ([facility]) Prescriptions: Promethazine HCl [Phenergan 25 mg Supp.rect] 1 supp NV Q6H #12 supp.rect Referrals: GLEN MCGRATH PA-C [Primary Care Provider] - Follow up as needed
[2019-02-10 11:32] LABS: ALBUMIN 5.2 g/dL (3.5-5.0); ALKALINE PHOSPHATASE 123 U/L (38-126); ANION GAP 16 (5-19); ASPARTATE AMINO TRANSFERASE 33 U/L (14-36); BILIRUBIN,DIRECT 0.2 mg/dL (0.0-0.4); BILIRUBIN,TOTAL 0.6 mg/dL (0.2-1.3); BLOOD UREA NITROGEN 15 mg/dL (7-20); CALCIUM 10.6 mg/dL (8.4-10.2); CARBON DIOXIDE 21 mmol/L (22-30); CHLORIDE 102 mmol/L (98-107); GLUCOSE 212 mg/dL (75-110); POTASSIUM 4.9 mmol/L (3.6-5.0); TOTAL PROTEIN 9.7 g/dL (6.3-8.2)
[2019-02-10] MEDS ORDERED: PROCHLORPERAZINE EDISYLATE INJ 10 MG/2 ML VIAL IV ONE (13:32)
[2019-02-10] MEDS ORDERED: AMLODIPINE BESYLATE 10 MG TABLET PO ONE (13:36)
[2019-02-10] MEDS ORDERED: CLONIDINE HCL 0.2 MG TABLET PO ONE (13:37)
[2019-02-10 16:19] VITALS: BP 199/105
== END 2019-02-10 16:19 | disposition home or self-care (01) ==
LOC: ER 09:48
DX: G43.A1 Cyclical vomiting, in migraine, intractable (principal); R10.816 Epigastric abdominal tenderness; R10.9 Unspecified abdominal pain; G89.29 Other chronic pain; R14.0 Abdominal distension (gaseous); E11.9 Type 2 diabetes mellitus without complications; I10 Essential (primary) hypertension; Z88.8 Allergy status to other drugs, medicaments and biological substances; Z87.19 Personal history of other diseases of the digestive system; Z90.49 Acquired absence of other specified parts of digestive tract
CPT/HCPCS: 36415; 83690; 85025; 80053; A9270 ×2; J1200; J1630; J0780; J7030; 96361; 96374; 96375; 96376; 99284

== ENCOUNTER 2019-05-14 08:52 | Emergency (ER) | payer MEDICARE, MEDICAID ==
[2019-05-14] MEDS ORDERED: ONDANSETRON HCL INJ/PF 4 MG/2 ML SDV IV ONE (09:46)
[2019-05-14] MEDS ORDERED: NORMAL SALINE 1000 ML 1,000 ML IV ONE ×2 (09:46→13:00)
--- NOTE | 2019-05-14 09:53 | ER Document Report ---
ED GI/ - General Stated Complaint: ABDOMINAL PAIN/VOMITING Time Seen by Provider: 05/14/19 09:39 Primary Care Provider: GLEN MCGRATH PA-C [NO LOCAL MD] - Follow up in 3-5 days Notes: Patient is a 44-year-old female presents emergency department with a chief complaint of abdominal pain. Her pain started last night. Patient has a history of cyclic vomiting syndrome and has been vomiting since last night. Patient is diabetic. Patient states that that whole abdomen hurts. She had a bowel movement this morning and it was normal. Is writhing around on the stretcher, as she always does when she is here in the emergency department. TRAVEL OUTSIDE OF THE [place] IN LAST 30 DAYS: No - Related Data Allergies/Adverse Reactions: metoclopramide HCl [From Reglan] Allergy (Unknown, Verified 05/14/19 11:41) Past Medical History - General Information source: Patient - Social History Smoking Status: Unknown if Ever Smoked Family History: None, DM, Hypertension - Past Medical History Cardiac Medical History: Reports: Hx Hypercholesterolemia, Hx Hypertension Endocrine Medical History: Reports: Hx Diabetes Mellitus Type 2. Denies: Hx Diabetes Mellitus Type 1 Renal/ Medical History: Reports: Hx Renal Insufficiency. Denies: Hx Peritoneal Dialysis GI Medical History: Reports: Hx Gastroesophageal Reflux Disease, Hx Hiatal Hernia Musculoskeletal Medical History: Reports Hx Arthritis Skin Medical History: Reports Hx Eczema Psychiatric Medical History: Reports: Hx Anxiety, Hx Bipolar Disorder, Hx Depression Infectious Medical History: Reports: Hx MRSA Past Surgical History: Reports: Hx Cholecystectomy - Immunizations Immunizations up to date: Yes Hx Diphtheria, Pertussis, Tetanus Vaccination: Yes - unknown Hx Pneumococcal Vaccination: 05/04/10 Review of Systems - Review of Systems Notes: REVIEW OF SYSTEMS: CONSTITUTIONAL : Denies recent illness. Denies recent unintentional weight loss. Denies fever, chills, or sweats. EENT: Denies eye, ear, throat, or mouth pain, discharge, or symptoms. Denies nasal or sinus congestion. CARDIOVASCULAR: Denies chest pain. RESPIRATORY: Denies shortness of breath, cough, congestion, difficulty breathing, or wheezing. GASTROINTESTINAL: See HPI. GENITOURINARY: Denies difficulty urinating, burning, blood in urine, urgency or frequency. MUSCULOSKELETAL: Denies neck and back pain. Denies joint pain or swelling. SKIN: Denies rash, itchiness, or lesions HEMATOLOGIC : Denies easy bruising or bleeding. LYMPHATIC: Denies swollen, painful, enlarged glands. NEUROLOGICAL: Denies no numbness or tingling denies weakness. Denies headache. Denies altered mental status. Denies alteration in speech. PSYCHIATRIC: Denies stress, anxiety, alteration in sleep patterns, or depression. All other systems reviewed and negative. Physical Exam - Vital signs Vitals: Temp Pulse BP Pulse Ox 98.1 F 130 H 160/124 H 99 05/14/19 09:08 05/14/19 09:08 05/14/19 09:08 05/14/19 09:08 - Notes Notes: PHYSICAL EXAMINATION: GENERAL: Appears well, obese, very well-nourished, no acute distress. HEAD: Normocephalic, atraumatic. EYES: PERRL, conjunctiva normal, all extraocular movements intact, sclera nonicteric ENT: Moist mucous membranes. NECK: Supple, no noticeable swelling, redness, rash. Normal range of motion. LUNGS: Equal breath sounds bilaterally and clear to auscultation. No wheezes rales or rhonchi. CARDIOVASCULAR: S1-S2, regular rate, regular rhythm. Radial pulses 2+, normal. ABDOMEN: Normoactive bowel sounds. Soft, mildly tender mid lower abdomen, no guarding, no rebound tenderness, and no masses palpated. EXTREMITIES: Normal strength and range of motion, no pitting or edema. No cyanosis. NEUROLOGICAL: Moves all extremities upon command. Strength 5/5 in all extremities. PSYCH: Writhing around in the bed, not able to sit still unless firmly told to do so. SKIN: Warm, dry. No rash, lesions, ulcerations noted. Normal skin turgor. Course - Re-evaluation Re-evalutation: 05/14/19 12:58 I have reevaluated the patient and she is now sleeping. States that she is in pain, but her abdomen is soft and nontender on my assessment. I think her pain is mainly due to her vomiting. When she wakes up, the patient will be p.o. challenged.Hemology shows a leukocytosis of 12,800 with a shift to the left. Blood gas shows a compensated metabolic acidosis. Chemistries show glucose of 282. Her albumin is high, consistent with dehydration. Serum hCG is negative. She was given Haldol and Benadryl, as she was writhing around in bed, which she does every time that she is here with abdominal pain. Patient states that she feels better after all of her medications and fluids have been given. She will be started on Keflex and Rocephin will be given here in the emergency department. She adamantly denies any vaginal discharge. 05/14/19 14:42 Patient's urinalysis has resulted. She has 27 WBCs and 3+ bacteria noted on her urine. Patient will be given Rocephin here in the emergency department her urine will be sent for culture. Advised the patient to follow-up with her primary care provider. She also be sent home with Sy. P.o. challenge was done. Follow-up precautions were given. Verbal discharge instructions were given to the patient. They verbalized understanding. They are stable for discharge. - Vital Signs Vital signs: Temp Pulse Resp BP Pulse Ox 99.0 F 117 H 16 195/89 H 98 05/14/19 15:23 05/14/19 15:23 05/14/19 15:23 05/14/19 15:23 05/14/19 15:23 - Laboratory Result Diagrams: 05/14/19 11:23 05/14/19 11:23 Laboratory results interpreted by me: 05/14/19 05/14/19 05/14/19 11:23 11:23 11:47 WBC 12.8 H MCV 77 L MCH 25.2 L RDW 17.2 H Lymph % (Auto) 10.5 L Absolute Neuts (auto) 10.7 H Seg Neutrophils % 83.8 H VBG pCO2 25.1 L VBG HCO3 16.0 L Carbon Dioxide 18 L Glucose 282 H Calcium 10.6 H Alkaline Phosphatase 133 H Total Protein 9.6 H Albumin 5.1 H Urine Protein Urine Glucose (UA) Urine Ketones 05/14/19 13:48 WBC MCV MCH RDW Lymph % (Auto) Absolute Neuts (auto) Seg Neutrophils % VBG pCO2 VBG HCO3 Carbon Dioxide Glucose Calcium Alkaline Phosphatase Total Protein Albumin Urine Protein >=500 H Urine Glucose (UA) >=500 H Urine Ketones 80 H Discharge - Discharge Clinical Impression: Urinary tract infection Qualifiers: Urinary tract infection type: site unspecified Hematuria presence: without hematuria Qualified Code(s): N39.0 - Urinary tract infection, site not specified Vomiting Qualifiers: Vomiting type: unspecified Vomiting Intractability: non-intractable Nausea presence: with nausea Qualified Code(s): R11.2 - Nausea with vomiting, unspecif ied Condition: Stable Disposition: HOME, SELF-CARE Instructions: Cephalexin ([facility]) Additional Instructions: Your urine shows findings consistent with a urinary tract infection. Please take all the antibiotics as directed even if your symptoms have improved. Please follow-up with your primary care physician as needed. Return to emergency room if you develop fever >101F, persistent vomiting, become lethargic, have severe pain in your sides, or any other symptoms that are concerning to you. Prescriptions: Cephalexin [Keflex] 500 mg PO BID #14 capsule Ondansetron [Zofran Odt 4 mg Tablet] 1 - 2 tab PO Q4H PRN #30 tab.rapdis PRN Reason: For Nausea/Vomiting Referrals: GLEN MCGRATH PA-C [NO LOCAL MD] - Follow up in 3-5 days
[2019-05-14 11:44] LABS: ABSOLUTE LYMPHOCYTES (AUTO) 1.3 10^3/uL (0.5-4.7); ABSOLUTE MONOCYTES (AUTO) 0.7 10^3/uL (0.1-1.4); ABSOLUTE NEUT (AUTO) 10.7 10^3/uL (1.7-8.2); BASOPHILS % (AUTO) 0.2 % (0-2); HEMATOCRIT 40.7 % (36.0-47.0); HEMOGLOBIN 13.3 g/dL (12.0-15.5); LYMPHOCYTES % (AUTO) 10.5 % (13-45); MEAN CORPUSCULAR HEMOGLOBIN 25.2 pg (27.0-33.4); MEAN CORPUSCULAR HGB CONC 32.7 g/dL (32.0-36.0); MEAN CORPUSCULAR VOLUME 77 fl (80-97); MONOCYTES % (AUTO) 5.5 % (3-13); PLATELET COUNT 363 10^3/uL (150-450); RED BLOOD COUNT 5.27 10^6/uL (3.72-5.28); RED CELL DISTRIBUTION WIDTH 17.2 % (11.5-14.0); SEGMENTED NEUTROPHILS % (AUTO) 83.8 % (42-78); TOTAL CELLS COUNTED % (AUTO) 100 %; WHITE BLOOD COUNT 12.8 10^3/uL (4.0-10.5)
[2019-05-14] MEDS ORDERED: HALOPERIDOL LACTATE INJ 5 MG/1 ML VIAL IV ONE (11:45)
[2019-05-14 12:02] LABS: ALBUMIN 5.1 g/dL (3.5-5.0); ALKALINE PHOSPHATASE 133 U/L (38-126); ASPARTATE AMINO TRANSFERASE 34 U/L (14-36); BILIRUBIN,DIRECT 0.2 mg/dL (0.0-0.4); BILIRUBIN,TOTAL 0.8 mg/dL (0.2-1.3); BLOOD UREA NITROGEN 15 mg/dL (7-20); CALCIUM 10.6 mg/dL (8.4-10.2); GLUCOSE 282 mg/dL (75-110); POTASSIUM 4.8 mmol/L (3.6-5.0); TOTAL PROTEIN 9.6 g/dL (6.3-8.2)
[2019-05-14 12:07] LABS: ANION GAP 17 (5-19); CARBON DIOXIDE 18 mmol/L (22-30); CHLORIDE 103 mmol/L (98-107)
[2019-05-14 12:11] LABS: VENOUS BLOOD BASE EXCESS -6.7 mmol/L; VENOUS BLOOD PCO2 25.1 mmHg (35-63); VENOUS BLOOD PH 7.42 (7.30-7.42)
[2019-05-14] MEDS ORDERED: DIPHENHYDRAMINE HCL 50 MG/ML VIAL IV ONE ×2 (12:23)
[2019-05-14 14:27] LABS: APPEARANCE,URINE SLIGHTLY-CLOUDY; BILIRUBIN,URINE NEGATIVE (NEGATIVE); COLOR,URINE YELLOW; GLUCOSE, URINE >=500 mg/dL (NEGATIVE); KETONES,URINE 80 mg/dL (NEGATIVE); LEUKOCYTE ESTERASE,URINE NEGATIVE (NEGATIVE); NITRITE,URINE NEGATIVE (NEGATIVE); PROTEIN,URINE >=500 mg/dL (NEGATIVE); URINE SPECIFIC GRAVITY 1.024; UROBILINOGEN,URINE NEGATIVE mg/dL (<2.0)
[2019-05-14] MEDS ORDERED: CEFTRIAXONE INJ 1000 MG VIAL IV ONE (14:35)
[2019-05-14 15:45] VITALS: BP 195/89
--- NOTE | 2019-05-15 15:56 | EKG REPORT ---
SEVERITY:- ABNORMAL ECG - SINUS TACHYCARDIA PROBABLE LEFT ATRIAL ABNORMALITY BORDERLINE R WAVE PROGRESSION, ANTERIOR LEADS BORDERLINE T ABNORMALITIES, INFERIOR LEADS : Confirmed by: Opal Garcia 15-May-2019 15:55:51
== END 2019-05-14 16:07 | disposition home or self-care (01) ==
LOC: ER 08:52
DX: N39.0 Urinary tract infection, site not specified (principal); R11.2 Nausea with vomiting, unspecified; R10.9 Unspecified abdominal pain; E78.00 Pure hypercholesterolemia, unspecified; I10 Essential (primary) hypertension; E11.9 Type 2 diabetes mellitus without complications; Z86.14 Personal history of Methicillin resistant Staphylococcus aureus infection; Z90.49 Acquired absence of other specified parts of digestive tract
CPT/HCPCS: 36415; 83690; 84703; 85025; 80053; 81001; 82803; J1200; J1630; J0696; J2405; J7030; 87086; 87088; 93005; 93010

== ENCOUNTER 2019-05-20 10:08 | Emergency (ER) | payer MEDICARE, MEDICAID ==
--- NOTE | 2019-05-20 11:21 | ER Document Report ---
ED Medical Screen (RME) - General Chief Complaint: Abdominal Pain Stated Complaint: ABDOMINAL PAIN Time Seen by Provider: 05/20/19 11:17 Primary Care Provider: GLEN MCGRATH PA-C [Primary Care Provider] - Follow up as needed Mode of Arrival: Ambulatory Information source: Patient Notes: 44-year-old diabetic female with history of chronic abdominal pain gastroparesis presents emergency department with abdominal pain. Unsure of vomiting. Recent treatment for UTI. Patient is very uncomfortable rolling all over the bed trying to lay on the floor. Very difficult to ascertain full history. I have greeted and performed a rapid initial assessment of this patient. A comprehensive ED assessment and evaluation of the patient, analysis of test results and completion of the medical decision making process will be conducted by additional ED providers. TRAVEL OUTSIDE OF THE [place] IN LAST 30 DAYS: No - Related Data Allergies/Adverse Reactions: metoclopramide HCl [From Reglan] Allergy (Unknown, Verified 05/14/19 11:41) Past Medical History - Social History Chew tobacco use (# tins/day): No Frequency of alcohol use: None Drug Abuse: None Family history: DM, Hypertension - Past Medical History Cardiac Medical History: Reports: Hx Hypercholesterolemia, Hx Hypertension Endocrine Medical History: Reports: Hx Diabetes Mellitus Type 2. Denies: Hx Diabetes Mellitus Type 1 Renal/ Medical History: Reports: Hx Renal Insufficiency. Denies: Hx Peritoneal Dialysis GI Medical History: Reports: Hx Gastroesophageal Reflux Disease, Hx Hiatal Hernia Musculoskeltal Medical History: Reports Hx Arthritis Skin Medical History: Reports Hx Eczema Psychiatric Medical History: Reports: Hx Anxiety, Hx Bipolar Disorder, Hx Depression Infectious Medical History: Reports: Hx MRSA Past Surgical History: Reports: Hx Cholecystectomy - Immunizations Immunizations up to date: Yes Hx Diphtheria, Pertussis, Tetanus Vaccination: Yes - unknown Physical Exam - Vital signs Vitals: Temp Pulse Resp BP Pulse Ox 97.5 F 120 H 28 H 221/116 H 100 05/20/19 10:11 05/20/19 10:11 05/20/19 10:11 05/20/19 10:11 05/20/19 10:11 Course - Vital Signs Vital signs: Temp Pulse Resp BP Pulse Ox 97.5 F 120 H 28 H 221/116 H 100 05/20/19 10:11 05/20/19 10:11 05/20/19 10:11 05/20/19 10:11 05/20/19 10:11 Doctor's Discharge - Discharge Referrals: GLEN MCGRATH PA-C [Primary Care Provider] - Follow up as needed
[2019-05-20] MEDS ORDERED: DIPHENHYDRAMINE HCL 50 MG/ML VIAL IV ONE (11:22)
[2019-05-20] MEDS ORDERED: HALOPERIDOL LACTATE INJ 5 MG/1 ML VIAL IV ONE (11:22)
[2019-05-20] MEDS ORDERED: NORMAL SALINE 1000 ML 1,000 ML IV ONE (11:23)
[2019-05-20 12:07] LABS: ABSOLUTE BASOPHILS # (AUTO) 0.1 10^3/uL (0.0-0.2); ABSOLUTE LYMPHOCYTES (AUTO) 2.7 10^3/uL (0.5-4.7); ABSOLUTE MONOCYTES (AUTO) 0.9 10^3/uL (0.1-1.4); ABSOLUTE NEUT (AUTO) 7.6 10^3/uL (1.7-8.2); EOSINOPHILS % (AUTO) 0.2 % (0-6); HEMATOCRIT 37.9 % (36.0-47.0); HEMOGLOBIN 12.4 g/dL (12.0-15.5); MEAN CORPUSCULAR HEMOGLOBIN 25.5 pg (27.0-33.4); MEAN CORPUSCULAR HGB CONC 32.7 g/dL (32.0-36.0); MEAN CORPUSCULAR VOLUME 78 fl (80-97); MONOCYTES % (AUTO) 8.1 % (3-13); PLATELET COUNT 331 10^3/uL (150-450); RED BLOOD COUNT 4.86 10^6/uL (3.72-5.28); RED CELL DISTRIBUTION WIDTH 17.6 % (11.5-14.0); SEGMENTED NEUTROPHILS % (AUTO) 66.7 % (42-78); TOTAL CELLS COUNTED % (AUTO) 100 %; WHITE BLOOD COUNT 11.4 10^3/uL (4.0-10.5)
[2019-05-20 12:23] LABS: APPEARANCE,URINE SLIGHTLY-CLOUDY; BILIRUBIN,URINE NEGATIVE (NEGATIVE); COLOR,URINE YELLOW; GLUCOSE, URINE >=500 mg/dL (NEGATIVE); KETONES,URINE 20 mg/dL (NEGATIVE); LEUKOCYTE ESTERASE,URINE TRACE (NEGATIVE); NITRITE,URINE NEGATIVE (NEGATIVE); PROTEIN,URINE 100 mg/dL (NEGATIVE); URINE SPECIFIC GRAVITY 1.022; UROBILINOGEN,URINE NEGATIVE mg/dL (<2.0)
[2019-05-20 12:28] LABS: ALBUMIN 4.7 g/dL (3.5-5.0); ALKALINE PHOSPHATASE 118 U/L (38-126); AMYLASE 122 U/L (30-110); ANION GAP 15 (5-19); ASPARTATE AMINO TRANSFERASE 34 U/L (14-36); BILIRUBIN,DIRECT 0.1 mg/dL (0.0-0.4); BILIRUBIN,TOTAL 0.7 mg/dL (0.2-1.3); BLOOD UREA NITROGEN 12 mg/dL (7-20); CALCIUM 10.3 mg/dL (8.4-10.2); CARBON DIOXIDE 21 mmol/L (22-30); CHLORIDE 103 mmol/L (98-107); GLUCOSE 204 mg/dL (75-110); POTASSIUM 4.6 mmol/L (3.6-5.0); TOTAL PROTEIN 8.4 g/dL (6.3-8.2)
[2019-05-20 12:37] LABS: URINE AMPHETAMINES SCREEN NEGATIVE; URINE BARBITURATES SCREEN NEGATIVE; URINE BENZODIAZEPINES SCREEN NEGATIVE; URINE COCAINE SCREEN NEGATIVE; URINE MARIJUANA (THC) SCREEN NEGATIVE; URINE METHADONE SCREEN NEGATIVE; URINE PHENCYCLIDINE SCREEN NEGATIVE
--- NOTE | 2019-05-20 13:18 | ER Document Report ---
Entered by SAPPHIRE BEST SCRIBE 05/20/19 1201 Acting as scribe for:SEN CAO IV, MD ED GI/ - General Chief Complaint: Abdominal Pain Stated Complaint: ABDOMINAL PAIN Time Seen by Provider: 05/20/19 11:17 Primary Care Provider: GLEN MCGRATH PA-C [Primary Care Provider] - Follow up as needed Mode of Arrival: Ambulatory Information source: Patient Notes: This 44 year old female patient that is incredibly well known to ED staff here presents today with complaints of an exacerbation of her chronic gastroparesis and cyclic vomiting. The patient was medicated in triage with IV Benadryl and Haldol and now is sleeping comfortably. This history is obtained from E note which described the patient as rolling around in the bed, asking to lay on the floor, being quite hysterical and difficult to obtain history from which is essentially how she always presents here with her gastroparesis related pain. Patient has had too numerous to count Abdomen/Pelvis CT scans. TRAVEL OUTSIDE OF THE [place] IN LAST 30 DAYS: No - Related Data Allergies/Adverse Reactions: metoclopramide HCl [From Reglan] Allergy (Unknown, Verified 05/14/19 11:41) Past Medical History - General Information source: Patient - Social History Smoking Status: Never Smoker Cigarette use (# per day): No Chew tobacco use (# tins/day): No Frequency of alcohol use: None Drug Abuse: None Lives with: Family Family History: None, DM, Hypertension Patient has suicidal ideation: No Patient has homicidal ideation: No - Past Medical History Cardiac Medical History: Reports: Hx Hypercholesterolemia, Hx Hypertension Endocrine Medical History: Reports: Hx Diabetes Mellitus Type 2 Renal/ Medical History: Reports: Hx Renal Insufficiency GI Medical History: Reports: Hx Gastroesophageal Reflux Disease, Hx Hiatal Hernia Musculoskeletal Medical History: Reports Hx Arthritis Skin Medical History: Reports Hx Eczema Psychiatric Medical History: Reports: Hx Anxiety, Hx Bipolar Disorder, Hx Depression Infectious Medical History: Reports: Hx MRSA Past Surgical History: Reports: Hx Cholecystectomy - Immunizations Immunizations up to date: Yes Hx Diphtheria, Pertussis, Tetanus Vaccination: Yes - unknown Hx Pneumococcal Vaccination: 05/04/10 Review of Systems - Review of Systems Notes: taken from RME note as patient is sleeping after being medicated -: Yes ROS unobtainable due to patient's medical condition Constitutional: No symptoms reported EENT: No symptoms reported Cardiovascular: No symptoms reported Respiratory: No symptoms reported Gastrointestinal: See HPI, Abdominal pain, Vomiting Genitourinary: No symptoms reported Female Genitourinary: No symptoms reported Musculoskeletal: No symptoms reported Skin: No symptoms reported Hematologic/Lymphatic: No symptoms reported Neurological/Psychological: No symptoms reported -: Yes All other systems reviewed and negative Physical Exam - Vital signs Vitals: Temp Pulse Resp BP Pulse Ox 97.5 F 120 H 28 H 221/116 H 100 05/20/19 10:11 05/20/19 10:11 05/20/19 10:11 05/20/19 10:11 05/20/19 10:11 - Notes Notes: Physical Exam: General: Patient had been medicated with benadryl and Haldol prior to exam - patient is now lying on her side, sleeping quite comfortably. According to tr iage note, the patient was rolling around in the bed quite hysterically, asking to lay on the floor, making it impossible to obtain complete history. HEENT: Normocephalic. Atraumatic. PERRL. Extraocular movements intact. Oropharynx clear. Neck: Supple. Non-tender. Respiratory: No respiratory distress. Clear and equal breath sounds bilaterally. Cardiovascular: Regular rate and rhythm. Abdominal: Sleeping while holding emesis bag, which is empty. No distension. Normal Bowel Sounds. Back: No gross abnormalities. Extremities: Moves all four extremities. Upper extremities: Normal inspection. Normal ROM. Lower extremities: Normal inspection. No edema. Normal ROM. Skin: Warm. Dry. Normal color. Course - Re-evaluation Re-evalutation: 05/20/19 13:34 Results of ED MSE explained to patient and patient's family member. All questions were answered prior to discharge. When asked if everything was explained to the patient in a way that was understandable, patient replied in the affirmative. Urine cultures were reviewed prior to patient's discharge. She is on adequate coverage for her urinary tract infection and patient was instructed to continue the Macrobid that she is currently on. Emergency signs and symptoms, reasons to return to the emergency department discussed with patient. - Vital Signs Vital signs: Temp Pulse Resp BP Pulse Ox 97.5 F 120 H 28 H 221/116 H 100 05/20/19 10:11 05/20/19 10:11 05/20/19 10:11 05/20/19 10:11 05/20/19 10:11 - Laboratory Result Diagrams: 05/20/19 11:55 05/20/19 11:55 Laboratory results interpreted by me: 05/20/19 05/20/19 05/20/19 11:55 11:55 11:55 WBC 11.4 H MCV 78 L MCH 25.5 L RDW 17.6 H Carbon Dioxide 21 L Glucose 204 H Calcium 10.3 H Total Protein 8.4 H Amylase 122 H Urine Protein 100 H Urine Glucose (UA) >=500 H Urine Ketones 20 H Urine Blood LARGE H Ur Leukocyte Esterase TRACE H Discharge - Discharge Clinical Impression: Acute cystitis with hematuria Vomiting Qualifiers: Vomiting type: unspecified Vomiting Intractability: non-intractable Nausea presence: with nausea Qualified Code(s): R11.2 - Nausea with vomiting, unspecified Condition: Good Disposition: HOME, SELF-CARE Additional Instructions: Return to the Emergency Department without delay if any worse. HOME CARE INSTRUCTIONS & INFORMATION: Thank you for choosing us for your medical needs. We hope you're satisfied with the care you received. After you leave, you must properly care for your problem and, at the same time, observe its progress. Any condition can change. Some illnesses can change rapidly over hours or days. If your condition worsens, return to the Emergency Department or see your physician promptly. ABOUT YOUR X-RAYS AND EKG'S: If you had an EKG or X-rays taken, they have been read by the Emergency Physician. The X-rays and EKG's will also be read by a Radiologist or [facility] Clerk within 24 hours. If discrepancies are noted, you will be notified by telephone. Please be certain the ED has a correct telephone number & address where you can be reached. Also, realize that some fractures or abnormalities do not show up on initial X-rays. If your symptoms continue, see your physician. ABOUT YOUR LABORATORY TEST: If you had laboratory tests, the results have been reviewed by the Emergency Physician. Some test results (for example cultures) may not be available for several days. You will be contacted if any test result shows you need additional treatment. Please be certain the ED has a correct telephone number and address where you can be reached. ABOUT YOUR MEDICATIONS: You will receive instructions on how to take your medicine on the prescription label you receive. Additional information may be provided by the Pharmacy. If you have questions afterwards, call the ED for clarification or further instructions. Some prescribed medications may cause drowsiness. Do not perform tasks such as driving a car or operating machinery without consulting your Pharmacist. If you feel you need a refill of pain medication, your condition will need re-evaluation. Please do not call for a refill of any medication. ABOUT YOUR SIGNATURE: Signature of this document acknowledges to followin. Understanding that you received emergency treatment and that you may be released before al medical problems are known or treated. Please be certain the ED has a correct phone number & address where you can be reached. 2. Acknowledgement that you will arrange for follow-up care as recommended. 3. Authorization for the Emergency Physician to provide information to your follow-up Physician in order to maximize your care. AT ANY TIME, IF YOUR SYMPTOMS CHANGE SIGNIFICANTLY OR WORSEN OR YOU DEVELOP NEW SYMPTOMS, RETURN TO THE EMERGENCY DEPARTMENT IMMEDIATELY FOR RE-EVALUATION. OUR GOAL IS TO PROVIDE EXCELLENT MEDICAL CARE! WE HOPE THAT WE HAVE MET YOUR EXPECTATIONS DURING YOUR EMERGENCY DEPARTMENT VISIT AND THAT YOU FEEL YOU HAVE RECEIVED EXCELLENT CARE! Referrals: GLEN MCGRATH PA-C [Primary Care Provider] - Follow up as needed I personally performed the services described in the documentation, reviewed and edited the documentation which was dictated to the scribe in my presence, and it accurately records my words and actions.
[2019-05-20 14:07] VITALS: BP 145/78
== END 2019-05-20 14:07 | disposition home or self-care (01) ==
LOC: ER 10:08
DX: N30.01 Acute cystitis with hematuria (principal); E11.43 Type 2 diabetes mellitus with diabetic autonomic (poly)neuropathy; K31.84 Gastroparesis; I10 Essential (primary) hypertension; R11.2 Nausea with vomiting, unspecified
CPT/HCPCS: 99284; 96361; 96374; 96375; 36415; 82150; 83690; 85025; 80053; 81001; 80307; J1200; J1630; J7030

== ENCOUNTER 2019-05-20 22:49 | Emergency (ER) | payer MEDICARE, MEDICAID ==
[2019-05-21] MEDS ORDERED: ONDANSETRON HCL INJ/PF 4 MG/2 ML SDV IV ONE (02:06)
[2019-05-21] MEDS ORDERED: NORMAL SALINE 1000 ML 1,000 ML IV ONE (02:06)
[2019-05-21 02:31] LABS: ABSOLUTE LYMPHOCYTES (AUTO) 1.5 10^3/uL (0.5-4.7); ABSOLUTE MONOCYTES (AUTO) 0.7 10^3/uL (0.1-1.4); ABSOLUTE NEUT (AUTO) 12.5 10^3/uL (1.7-8.2); BASOPHILS % (AUTO) 0.3 % (0-2); EOSINOPHILS % (AUTO) 0.1 % (0-6); HEMATOCRIT 39.1 % (36.0-47.0); HEMOGLOBIN 12.9 g/dL (12.0-15.5); LYMPHOCYTES % (AUTO) 10.3 % (13-45); MEAN CORPUSCULAR HEMOGLOBIN 25.9 pg (27.0-33.4); MEAN CORPUSCULAR HGB CONC 32.9 g/dL (32.0-36.0); MEAN CORPUSCULAR VOLUME 79 fl (80-97); MONOCYTES % (AUTO) 4.7 % (3-13); PLATELET COUNT 369 10^3/uL (150-450); RED BLOOD COUNT 4.97 10^6/uL (3.72-5.28); RED CELL DISTRIBUTION WIDTH 17.8 % (11.5-14.0); SEGMENTED NEUTROPHILS % (AUTO) 84.6 % (42-78); TOTAL CELLS COUNTED % (AUTO) 100 %; WHITE BLOOD COUNT 14.7 10^3/uL (4.0-10.5)
--- NOTE | 2019-05-21 02:43 | ER Document Report ---
ED GI/ - General Chief Complaint: Abdominal Pain Stated Complaint: VOMITING,WEAKNESS Time Seen by Provider: 05/21/19 02:42 Notes: Patient is a 44-year-old female that comes emergency department for chief complaint of abdominal pain and vomiting. She has a history of chronic abdominal pain, she states she was told at times that she has gastroparesis and other times that she does not although she states she did have a negative gastric emptying test. She is also had a cholecystectomy. Remaining medical history includes type 2 diabetes, hypertension, hyperlipidemia, GERD, hiatal hernia, and bipolar disorder. She was seen here earlier today for abdominal pain and vomiting and discharged. She denies hematemesis, bloody bowel movements, fever. Pain is in the upper abdomen generally. She denies any other complaints. TRAVEL OUTSIDE OF THE [place] IN LAST 30 DAYS: No - Related Data Allergies/Adverse Reactions: metoclopramide HCl [From Reglan] Allergy (Unknown, Verified 05/21/19 02:12) Past Medical History - General Information source: Patient - Social History Smoking Status: Never Smoker Chew tobacco use (# tins/day): No Frequency of alcohol use: None Drug Abuse: None Lives with: Family Family History: None, DM, Hypertension Patient has suicidal ideation: No Patient has homicidal ideation: No - Past Medical History Cardiac Medical History: Reports: Hx Hypercholesterolemia, Hx Hypertension Endocrine Medical History: Reports: Hx Diabetes Mellitus Type 2. Denies: Hx Diabetes Mellitus Type 1 Renal/ Medical History: Reports: Hx Renal Insufficiency. Denies: Hx Peritoneal Dialysis GI Medical History: Reports: Hx Gastroesophageal Reflux Disease, Hx Hiatal He rnia Musculoskeletal Medical History: Reports Hx Arthritis Skin Medical History: Reports Hx Eczema Psychiatric Medical History: Reports: Hx Anxiety, Hx Bipolar Disorder, Hx Depression Infectious Medical History: Reports: Hx MRSA Past Surgical History: Reports: Hx Cholecystectomy - Immunizations Immunizations up to date: Yes Hx Diphtheria, Pertussis, Tetanus Vaccination: Yes - unknown Hx Pneumococcal Vaccination: 05/04/10 Review of Systems - Review of Systems Constitutional: No symptoms reported EENT: No symptoms reported Cardiovascular: No symptoms reported Respiratory: No symptoms reported Gastrointestinal: See HPI Genitourinary: No symptoms reported Female Genitourinary: No symptoms reported Musculoskeletal: No symptoms reported Skin: No symptoms reported Hematologic/Lymphatic: No symptoms reported Neurological/Psychological: No symptoms reported Physical Exam - Vital signs Vitals: Temp Pulse Resp BP Pulse Ox 98.3 F 118 H 18 204/108 H 99 05/20/19 23:17 05/20/19 23:17 05/20/19 23:17 05/20/19 23:17 05/20/19 23:17 - Notes Notes: GENERAL: Restless, somewhat uncomfortable in appearance HEAD: Normocephalic, atraumatic. EYES: Pupils equal, round, and reactive to light. Extraocular movements intact. ENT: Oral mucosa very dry, tongue midline. Oropharynx unremarkable. Airway patent. NECK: Full range of motion. Supple. Trachea midline. LUNGS: Clear to auscultation bilaterally, no wheezes, rales, or rhonchi. No respiratory distress. HEART: Regular rate and rhythm. No murmur ABDOMEN: There is some generalized upper abdominal tenderness, lower abdomen completely benign. No rigidity or guarding. GENITOURINARY: Deferred EXTREMITIES: Moves all 4 extremities spontaneously. No edema, normal radial and dorsalis pedis pulses bilaterally. No cyanosis. BACK: no cervical, thoracic, lumbar midline tenderness. No saddle anesthesia, normal distal neurovascular exam. Moves all extremities in full range of motion. NEUROLOGICAL: Alert and oriented x3. Normal speech. Cranial nerves II through XII grossly intact. PSYCH: Restless, slightly agitated SKIN: Warm, dry, normal turgor. No rashes or lesions noted. Course - Re-evaluation Re-evalutation: On my evaluation patient has some upper abdominal tenderness which is nonspecific, lower abdomen is complete benign. She is tachycardic and somewhat uncomfortable in appearance but she is not toxic. Remaining evaluation unremarkable. CBC shows a leukocytosis which is nonspecific given her vomiting. Chemistry shows glucose in the 200s, borderline anion gap, borderline bicarbonate. Patient will be given nausea medication, IV fluids with lactated Ringer's and reassessed. On reevaluation patient is still tachycardic but she states she actually feels much better. She has been given Haldol, she is asking for p.o. fluids. She was given Pepcid and started sipping fluids. On evaluation again patient is still tachycardic but she has not vomited. She states she is supposed to take metoprolol and lisinopril but has not been able to because of vomiting. Suspect this is the cause of her tachycardia with lack of beta-blockade. These were provided for her. We will recheck chemistry to make sure she is resolving with her acidosis. Repeat chemistry shows normal bicarbonate, normal anion gap. On reevaluation patient's heart rate is in the 90s, blood pressure improved into the 130s, patient smiling and well-appearing. She tolerated first viscous lidocaine and then additional fluids and has not vomited. She states she feels much better and she is ready to go home. I discussed gastritis with her history of gastritis and hiatal hernia, treatment, follow-up, return precautions. Patient states appreciation and agreement. Stable at time of discharge. - Vital Signs Vital signs: Temp Pulse Resp BP Pulse Ox 99.4 F 125 H 19 156/70 H 98 05/21/19 04:46 05/21/19 05:41 05/21/19 07:02 05/21/19 07:02 05/21/19 07:02 - Laboratory Result Diagrams: 05/21/19 01:56 05/21/19 06:32 Laboratory results interpreted by me: 05/21/19 05/21/19 05/21/19 01:56 01:56 04:35 WBC 14.7 H MCV 79 L MCH 25.9 L RDW 17.8 H Lymph % (Auto) 10.3 L Absolute Neuts (auto) 12.5 H Seg Neutrophils % 84.6 H Carbon Dioxide 19 L Anion Gap 20 H Glucose 289 H Calcium 10.7 H Alkaline Phosphatase 129 H Total Protein 8.7 H Albumin 5.1 H Urine Protein 30 H Urine Glucose (UA) >=500 H Urine Ketones 80 H Urine Blood MODERATE H 05/21/19 06:32 WBC MCV MCH RDW Lymph % (Auto) Absolute Neuts (auto) Seg Neutrophils % Carbon Dioxide Anion Gap Glucose 226 H Calcium Alkaline Phosphatase Total Protein Albumin Urine Protein Urine Glucose (UA) Urine Ketones Urine Blood - EKG Interpretation by Me Additional EKG results interpreted by me: EKG shows sinus tachycardia at a rate of 121, normal axis, QTC of 454. No T wave inversions or ST segment changes in consecutive leads. Discharge - Discharge Clinical Impression: Upper abdominal pain, Dehydration Vomiting Qualifiers: Vomiting type: unspecified Vomiting Intractability: non-intractable Nausea presence: with nausea Qualified Code(s): R11.2 - Nausea with vomiting, unspecified Condition: Stable Disposition: HOME, SELF-CARE Additional Instructions: You have been treated for dehydration tonight. Your symptoms and examination indicate gastritis/esophagitis (inflammation of your upper gastrointestinal tract). Take Phenergan for nausea, take Carafate and Pepcid as prescribed to help treat this, you can take additional Rolaids, Tums, Maalox, etc. if needed. You can take Tylenol for pain. Avoid NSAIDs, alcohol, smoking, caffeine, spicy food. Start with clear fluids, progress to bland diet. Follow-up with primary care for additional evaluation and treatment including possible H. pylori testing. Return if you worsen including uncontrolled vomiting, vomiting blood, black stools, severe pain, fever of 100.4 or greater, or any other concerning or worsening symptoms. Prescriptions: Sucralfate [Carafate 1 gm Tablet] 1 gm PO QID #20 tablet Famotidine [Pepcid 20 mg Tablet] 20 mg PO BID #20 tablet Promethazine HCl [Phenergan 25 mg Tablet] 25 mg PO Q6H PRN #15 tablet PRN Reason: Forms: Return to Work
[2019-05-21 02:47] LABS: ALBUMIN 5.1 g/dL (3.5-5.0); ALKALINE PHOSPHATASE 129 U/L (38-126); ASPARTATE AMINO TRANSFERASE 28 U/L (14-36); BILIRUBIN,DIRECT 0.2 mg/dL (0.0-0.4); BILIRUBIN,TOTAL 0.6 mg/dL (0.2-1.3); BLOOD UREA NITROGEN 12 mg/dL (7-20); CALCIUM 10.7 mg/dL (8.4-10.2); GLUCOSE 289 mg/dL (75-110); POTASSIUM 4.8 mmol/L (3.6-5.0); TOTAL PROTEIN 8.7 g/dL (6.3-8.2)
[2019-05-21 02:58] LABS: CARBON DIOXIDE 19 mmol/L (22-30); CHLORIDE 100 mmol/L (98-107)
[2019-05-21 03:04] LABS: ANION GAP 20 (5-19)
[2019-05-21] MEDS: RINGERS SOLUTION,LACTATED 1,000 ML IV PRN ×2 (03:42→04:45)
[2019-05-21] MEDS ORDERED: HALOPERIDOL LACTATE INJ 5 MG/1 ML VIAL IM ONE (04:17)
[2019-05-21] MEDS ORDERED: FAMOTIDINE 20 MG TABLET PO ONE (04:18)
[2019-05-21 04:58] LABS: APPEARANCE,URINE SLIGHTLY-CLOUDY; BILIRUBIN,URINE NEGATIVE (NEGATIVE); COLOR,URINE STRAW; GLUCOSE, URINE >=500 mg/dL (NEGATIVE); KETONES,URINE 80 mg/dL (NEGATIVE); LEUKOCYTE ESTERASE,URINE NEGATIVE (NEGATIVE); NITRITE,URINE NEGATIVE (NEGATIVE); PROTEIN,URINE 30 mg/dL (NEGATIVE); URINE SPECIFIC GRAVITY 1.012; UROBILINOGEN,URINE NEGATIVE mg/dL (<2.0)
[2019-05-21] MEDS ORDERED: LISINOPRIL 10 MG TABLET PO ONE (06:21)
[2019-05-21] MEDS ORDERED: METOPROLOL TARTRATE 25 MG TABLET PO ONE (06:21)
[2019-05-21] MEDS ORDERED: MAG HYDROX/AL HYDROX/SIMETH SUSP 30 ML UDCUP PO ONE (06:22)
[2019-05-21] MEDS ORDERED: LIDOCAINE 2% VISCOUS SOLN 20 ML UDCUP PO ONE (06:22)
[2019-05-21 07:01] LABS: ANION GAP 15 (5-19); BLOOD UREA NITROGEN 11 mg/dL (7-20); CALCIUM 9.8 mg/dL (8.4-10.2); CARBON DIOXIDE 22 mmol/L (22-30); CHLORIDE 100 mmol/L (98-107); GLUCOSE 226 mg/dL (75-110); POTASSIUM 4.3 mmol/L (3.6-5.0)
[2019-05-21 07:50] VITALS: BP 131/73
--- NOTE | 2019-05-21 16:22 | EKG REPORT ---
SEVERITY:- ABNORMAL ECG - SINUS TACHYCARDIA ABNRM R PROG, CONSIDER ASMI OR LEAD PLACEMENT NONSPECIFIC T ABNORMALITIES, INFERIOR LEADS : Confirmed by: Buffy Guajardo MD 21-May-2019 16:21:37
== END 2019-05-21 07:48 | disposition home or self-care (01) ==
LOC: ER 22:49
DX: R10.10 Upper abdominal pain, unspecified (principal); R11.2 Nausea with vomiting, unspecified; E86.0 Dehydration; R10.819 Abdominal tenderness, unspecified site; D72.829 Elevated white blood cell count, unspecified; R00.0 Tachycardia, unspecified; E11.9 Type 2 diabetes mellitus without complications; I10 Essential (primary) hypertension; Z87.19 Personal history of other diseases of the digestive system; Z90.49 Acquired absence of other specified parts of digestive tract; Z88.8 Allergy status to other drugs, medicaments and biological substances
CPT/HCPCS: 93005; 99284; 96372; 96361; 96374; 36415; 84703; 85025; 80053; 81001; 93010; A9270 ×4; J1630; J3490; J2405; J7030; J7120

== ENCOUNTER 2019-05-30 17:05 | Emergency (ER) | payer MEDICARE, MEDICAID ==
[2019-05-30] MEDS ORDERED: DIPHENHYDRAMINE HCL 50 MG/ML VIAL IV ONE (18:37)
--- NOTE | 2019-05-30 18:40 | ER Document Report ---
ED Medical Screen (RME) - General Chief Complaint: Abdominal Pain Stated Complaint: ABDOMINAL PAIN, VOMITTING Time Seen by Provider: 05/30/19 18:27 Primary Care Provider: GLEN MCGRATH PA-C [Primary Care Provider] - Follow up as needed TRAVEL OUTSIDE OF THE [place] IN LAST 30 DAYS: No - HPI Notes: 05/30/19 18:37 Patient is a 44-year-old female well-known to the emergency department, please see multiple previous notes, who presents complaining of the same upper and lower abdominal pain is been present each time she comes in. This time it started this morning and she has had some nausea and vomiting associated. She has a past medical history significant for type 2 diabetes, ?gastroparesis, hypertension, hyperlipidemia, GERD, hiatal hernia, and bipolar disorder. The last couple times she was here she did receive benadryl and haldol which works well for her, but we will hold off on haldol until formal evaluation on main side. Denies fever, chest pain. I have treated and performed a rapid initial assessment of this patient. A comprehensive ED assessment and evaluation of the patient, analysis of test results and completion of medical decision making process will be conducted by additional ED providers. PHYSICAL EXAMINATION: GENERAL: Patient is rocking back and forth while sitting on the ground, tearful - Related Data Allergies/Adverse Reactions: metoclopramide HCl [From Reglan] Allergy (Unknown, Verified 05/21/19 02:12) Past Medical History - Social History Family history: DM, Hypertension - Past Medical History Cardiac Medical History: Reports: Hx Hypercholesterolemia, Hx Hypertension Endocrine Medical History: Reports: Hx Diabetes Mellitus Type 2. Denies: Hx Diabetes Mellitus Type 1 Renal/ Medical History: Reports: Hx Renal Insufficiency. Denies: Hx Peritoneal Dialysis GI Medical History: Reports: Hx Gastroesophageal Reflux Disease, Hx Hiatal Hernia Musculoskeltal Medical History: Reports Hx Arthritis Skin Medical History: Reports Hx Eczema Psychiatric Medical History: Reports: Hx Anxiety, Hx Bipolar Disorder, Hx Depression Infectious Medical History: Reports: Hx MRSA Past Surgical History: Reports: Hx Cholecystectomy - Immunizations Immunizations up to date: Yes Hx Diphtheria, Pertussis, Tetanus Vaccination: Yes - unknown Physical Exam - Vital signs Vitals: Temp Pulse Resp BP Pulse Ox 98.8 F 127 H 22 H 178/88 H 100 05/30/19 17:10 05/30/19 17:10 05/30/19 17:10 05/30/19 17:10 05/30/19 17:10 Course - Vital Signs Vital signs: Temp Pulse Resp BP Pulse Ox 98.8 F 127 H 22 H 178/88 H 100 05/30/19 17:10 05/30/19 17:10 05/30/19 17:10 05/30/19 17:10 05/30/19 17:10 Doctor's Discharge - Discharge Referrals: GLEN MCGRATH PA-C [Primary Care Provider] - Follow up as needed
[2019-05-30 19:24] LABS: ABSOLUTE BASOPHILS # (AUTO) 0.1 10^3/uL (0.0-0.2); ABSOLUTE LYMPHOCYTES (AUTO) 1.4 10^3/uL (0.5-4.7); ABSOLUTE MONOCYTES (AUTO) 0.8 10^3/uL (0.1-1.4); ABSOLUTE NEUT (AUTO) 11.2 10^3/uL (1.7-8.2); BASOPHILS % (AUTO) 0.8 % (0-2); HEMATOCRIT 39.2 % (36.0-47.0); HEMOGLOBIN 12.8 g/dL (12.0-15.5); LYMPHOCYTES % (AUTO) 10.1 % (13-45); MEAN CORPUSCULAR HEMOGLOBIN 25.8 pg (27.0-33.4); MEAN CORPUSCULAR HGB CONC 32.6 g/dL (32.0-36.0); MEAN CORPUSCULAR VOLUME 79 fl (80-97); MONOCYTES % (AUTO) 5.8 % (3-13); PLATELET COUNT 457 10^3/uL (150-450); RED BLOOD COUNT 4.95 10^6/uL (3.72-5.28); RED CELL DISTRIBUTION WIDTH 17.2 % (11.5-14.0); SEGMENTED NEUTROPHILS % (AUTO) 83.3 % (42-78); TOTAL CELLS COUNTED % (AUTO) 100 %; WHITE BLOOD COUNT 13.4 10^3/uL (4.0-10.5)
[2019-05-30 19:43] LABS: ALBUMIN 5.1 g/dL (3.5-5.0); ALKALINE PHOSPHATASE 142 U/L (38-126); ASPARTATE AMINO TRANSFERASE 30 U/L (14-36); BILIRUBIN,DIRECT 0.2 mg/dL (0.0-0.4); BILIRUBIN,TOTAL 0.8 mg/dL (0.2-1.3); BLOOD UREA NITROGEN 16 mg/dL (7-20); CALCIUM 10.5 mg/dL (8.4-10.2); POTASSIUM 4.8 mmol/L (3.6-5.0)
[2019-05-30 19:48] LABS: CARBON DIOXIDE 17 mmol/L (22-30); CHLORIDE 97 mmol/L (98-107)
[2019-05-30 19:52] LABS: ANION GAP 22 (5-19)
[2019-05-30 19:54] LABS: GLUCOSE 484 mg/dL (75-110)
[2019-05-30] MEDS: NORMAL SALINE 1000 ML 1,000 ML IV PRN ×2 (20:10→23:36)
--- NOTE | 2019-05-30 21:21 | ER Document Report ---
ED General - General Chief Complaint: Abdominal Pain Stated Complaint: ABDOMINAL PAIN, VOMITTING Time Seen by Provider: 05/30/19 18:27 Primary Care Provider: GLEN MCGRATH PA-C [Primary Care Provider] - Follow up as needed Information source: Patient - And TRAVEL OUTSIDE OF THE [place] IN LAST 30 DAYS: No - HPI Patient complains to provider of: "Nausea and vomiting especially since [place] time. " Onset: Other - She is well-known to staff in the ER evidently. Her reports she has had gastroparesis for the last 5 years because of her diabetes. She reports "she has been drinking a lot of Pepsi Cola in order to help her gastroparesis but this drives her blood sugar up." Onset/Duration: Waxing and waning Quality of pain: Cramping Severity: Severe Pain Level: 4 Exacerbated by: Movement Similar symptoms previously: Yes Recently seen / treated by doctor: Yes Notes: She reports Reglan causes her to stop breathing - Related Data Allergies/Adverse Reactions: metoclopramide HCl [From Reglan] Allergy (Unknown, Verified 05/21/19 02:12) Past Medical History - General Information source: Patient, Relative - - Social History Smoking Status: Never Smoker Frequency of alcohol use: None - Denies alcohol Family History: None, DM, Hypertension Patient has suicidal ideation: No Patient has homicidal ideation: No - Past Medical History Cardiac Medical History: Reports: Hx Hypercholesterolemia, Hx Hypertension Endocrine Medical History: Reports: Hx Diabetes Mellitus Type 2. Denies: Hx D iabetes Mellitus Type 1 Renal/ Medical History: Reports: Hx Renal Insufficiency. Denies: Hx Peritoneal Dialysis GI Medical History: Reports: Hx Gastroesophageal Reflux Disease, Hx Hiatal Hernia Musculoskeletal Medical History: Reports Hx Arthritis Skin Medical History: Reports Hx Eczema Psychiatric Medical History: Reports: Hx Anxiety, Hx Bipolar Disorder, Hx Depression Infectious Medical History: Reports: Hx MRSA Past Surgical History: Reports: Hx Cholecystectomy - Immunizations Immunizations up to date: Yes Hx Diphtheria, Pertussis, Tetanus Vaccination: Yes - unknown Hx Pneumococcal Vaccination: 05/04/10 Review of Systems - Review of Systems Constitutional: No symptoms reported EENT: No symptoms reported Cardiovascular: No symptoms reported Respiratory: No symptoms reported Gastrointestinal: Abdominal pain, Nausea, Vomiting Genitourinary: No symptoms reported Female Genitourinary: No symptoms reported Musculoskeletal: No symptoms reported Skin: No symptoms reported Hematologic/Lymphatic: No symptoms reported Neurological/Psychological: No symptoms reported Physical Exam - Vital signs Vitals: Temp Pulse Resp BP Pulse Ox 98.8 F 127 H 22 H 178/88 H 100 05/30/19 17:10 05/30/19 17:10 05/30/19 17:10 05/30/19 17:10 05/30/19 17:10 - Abdominal Inspection: Obese Distension: No distension Bowel sounds: Hyperactive Tenderness: Tender Organomegaly: No organomegaly Course - Vital Signs Vital signs: Temp Pulse Resp BP Pulse Ox 98.5 F 116 H 18 174/90 H 100 05/30/19 23:14 05/30/19 23:14 05/30/19 23:14 05/30/19 23:14 05/30/19 23:14 - Laboratory Result Diagrams: 05/30/19 18:59 05/30/19 18:59 Laboratory results interpreted by me: 05/30/19 05/30/19 05/30/19 18:59 18:59 23:09 WBC 13.4 H MCV 79 L MCH 25.8 L RDW 17.2 H Plt Count 457 H Lymph % (Auto) 10.1 L Absolute Neuts (auto) 11.2 H Seg Neutrophils % 83.3 H Sodium 136.2 L Chloride 97 L Carbon Dioxide 17 L Anion Gap 22 H Est GFR ( Amer) 58 L Est GFR (MDRD) Non-Af 48 L Glucose 484 H* POC Glucose 351 H Calcium 10.5 H Alkaline Phosphatase 142 H Total Protein 9.0 H Albumin 5.1 H Urine Protein Urine Glucose (UA) Urine Ketones 05/30/19 23:17 WBC MCV MCH RDW Plt Count Lymph % (Auto) Absolute Neuts (auto) Seg Neutrophils % Sodium Chloride Carbon Dioxide Anion Gap Est GFR ( Amer) Est GFR (MDRD) Non-Af Glucose POC Glucose Calcium Alkaline Phosphatase Total Protein Albumin Urine Protein 30 H Urine Glucose (UA) >=500 H Urine Ketones 20 H - Diagnostic Test Radiology reviewed: Reports reviewed Discharge - Discharge Clinical Impression: Vomiting, Gastroparesis due to DM Condition: Good Disposition: HOME, SELF-CARE Instructions: Abdominal Pain ([facility]), Antispasmodics ([facility]) Prescriptions: Sucralfate [Carafate 1 gm Tablet] 1 gm PO BID #60 tablet Phenobarbital [Phenobarbital 20 Mg/5 Ml Elixir Udcup] 20 mg PO BID PRN #120 udc PRN Reason: Abdominal Cramping Referrals: GLEN MCGRATH PA-C [Primary Care Provider] - Follow up as needed
[2019-05-30] MEDS ORDERED: PROCHLORPERAZINE EDISYLATE INJ 10 MG/2 ML VIAL IV ONE (21:31)
[2019-05-30] MEDS ORDERED: HALOPERIDOL LACTATE INJ 5 MG/1 ML VIAL IV ONE (21:32)
[2019-05-30] MEDS ORDERED: HYDROXYZINE HCL INJ 50 MG/1 ML VIAL IM ONE (21:32)
[2019-05-30 23:31] LABS: APPEARANCE,URINE CLEAR; BILIRUBIN,URINE NEGATIVE (NEGATIVE); COLOR,URINE STRAW; GLUCOSE, URINE >=500 mg/dL (NEGATIVE); KETONES,URINE 20 mg/dL (NEGATIVE); PROTEIN,URINE 30 mg/dL (NEGATIVE); URINE SPECIFIC GRAVITY 1.025; UROBILINOGEN,URINE NEGATIVE mg/dL (<2.0)
[2019-05-30 23:50] LABS: URINE AMPHETAMINES SCREEN NEGATIVE; URINE BARBITURATES SCREEN NEGATIVE; URINE BENZODIAZEPINES SCREEN NEGATIVE; URINE COCAINE SCREEN NEGATIVE; URINE MARIJUANA (THC) SCREEN NEGATIVE; URINE METHADONE SCREEN NEGATIVE; URINE PHENCYCLIDINE SCREEN NEGATIVE
--- NOTE | 2019-05-31 00:02 | RADIOLOGY REPORT (SQ) ---
Abdomen single view on 05/30/2019 at 11:27 PM Clinical indications: Generalized abdominal pain COMPARISON: CT from 01/13/2019 FINDINGS: Small calcifications to the left and right of the lower lumbar spine correspond to known phleboliths on prior CT. Other calcifications in the pelvis are also consistent with phleboliths. Bowel gas pattern is unremarkable. No increased stool to suggest constipation is noted. No bony abnormality is noted. IMPRESSION: Nonspecific abdomen.
[2019-05-31] MEDS ORDERED: SUCRALFATE 1 GM TABLET PO ONE (00:43)
[2019-05-31] MEDS ORDERED: ONDANSETRON HCL 8 MG TABLET PO ONE (00:43)
[2019-05-31] MEDS ORDERED: LIDOCAINE 2% VISCOUS SOLN 20 ML UDCUP PO ONE (00:51)
[2019-05-31] MEDS ORDERED: MAG HYDROX/AL HYDROX/SIMETH SUSP 30 ML UDCUP PO ONE (00:51)
[2019-05-31] MEDS ORDERED: PHENOBARBITAL 16.2 MG PO ONE (00:55)
[2019-05-31 02:42] VITALS: BP 185/86
== END 2019-05-31 02:41 | disposition home or self-care (01) ==
LOC: ER 17:05
DX: E11.43 Type 2 diabetes mellitus with diabetic autonomic (poly)neuropathy (principal); K31.84 Gastroparesis; R11.2 Nausea with vomiting, unspecified; R10.9 Unspecified abdominal pain; R10.819 Abdominal tenderness, unspecified site; I10 Essential (primary) hypertension; Z88.8 Allergy status to other drugs, medicaments and biological substances
CPT/HCPCS: 99284; 96361; 96374; 96375; 36415; 82962; 83690; 85025; 81025; 80053; 81001; 80307; 74018; J1200; J1630; J3410; J3490; A9270 ×3; J0780; J7030; S0119

== ENCOUNTER 2019-06-01 11:55 | Emergency (ER) | payer MEDICARE, MEDICAID ==
[2019-06-01] MEDS ORDERED: NORMAL SALINE 1000 ML 1,000 ML IV ONE (12:27)
--- NOTE | 2019-06-01 12:28 | ER Document Report ---
ED Medical Screen (RME) - General Stated Complaint: HIGH BGL/ABDOMINAL PAIN Time Seen by Provider: 06/01/19 12:23 Primary Care Provider: GLEN MCGRATH PA-C [Primary Care Provider] - Follow up as needed Information source: Patient Notes: Patient presents complaining of epigastric pain for the past 3 days with vomiting yesterday. Patient denies any vomiting today or diarrhea. Patient does have a history of diabetes and blood sugar was over 400 this morning. Patient denies any history of gastroparesis. I have greeted and performed a rapid initial assessment of this patient. A comprehensive ED assessment and evaluation of the patient, analysis of test results and completion of the medical decision making process will be conducted by additional ED providers. TRAVEL OUTSIDE OF THE [place] IN LAST 30 DAYS: No - Related Data Allergies/Adverse Reactions: metoclopramide HCl [From PinchPointlan] Allergy (Unknown, Verified 05/21/19 02:12) Past Medical History - Social History Family history: DM, Hypertension - Past Medical History Cardiac Medical History: Reports: Hx Hypercholesterolemia, Hx Hypertension Endocrine Medical History: Reports: Hx Diabetes Mellitus Type 2. Denies: Hx Diabetes Mellitus Type 1 Renal/ Medical History: Reports: Hx Renal Insufficiency. Denies: Hx Peritoneal Dialysis GI Medical History: Reports: Hx Gastroesophageal Reflux Disease, Hx Hiatal Hernia Musculoskeltal Medical History: Reports Hx Arthritis Skin Medical History: Reports Hx Eczema Psychiatric Medical History: Reports: Hx Anxiety, Hx Bipolar Disorder, Hx Depression Infectious Medical History: Reports: Hx MRSA Past Surgical History: Reports: Hx Cholecystectomy - Immunizations Immunizations up to date: Yes Hx Diphtheria, Pertussis, Tetanus Vaccination: Yes - unknown Physical Exam - Vital signs Vitals: Temp Pulse Resp BP Pulse Ox 98.1 F 122 H 18 131/83 H 98 06/01/19 12:10 06/01/19 12:10 06/01/19 12:10 06/01/19 12:10 06/01/19 12:10 - Cardiovascular Rhythm: Tachycardia Heart sounds: S1 appreciated, S2 appreciated - Psychological Associated symptoms: Anxious, Restlessness Course - Vital Signs Vital signs: Temp Pulse Resp BP Pulse Ox 98.1 F 122 H 18 131/83 H 98 06/01/19 12:10 06/01/19 12:10 06/01/19 12:10 06/01/19 12:10 06/01/19 12:10 Doctor's Discharge - Discharge Referrals: GLEN MCGRATH PA-C [Primary Care Provider] - Follow up as needed
[2019-06-01] MEDS ORDERED: DIPHENHYDRAMINE HCL 50 MG/ML VIAL IV ONE (13:18)
[2019-06-01] MEDS ORDERED: HALOPERIDOL LACTATE INJ 5 MG/1 ML VIAL IV ONE (13:19)
--- NOTE | 2019-06-01 13:27 | ER Document Report ---
ED General - General Chief Complaint: Abdominal Pain Stated Complaint: HIGH BGL/ABDOMINAL PAIN Time Seen by Provider: 06/01/19 12:23 Primary Care Provider: GLEN MCGRATH PA-C [Primary Care Provider] - Follow up as needed TRAVEL OUTSIDE OF THE [place] IN LAST 30 DAYS: No - HPI Notes: Patient is a 44-year-old female who presents to the emergency department for evaluation of epigastric pain and vomiting. She states that her pain is been present for the last 3 days. She states she really has not had any emesis since Saturday. She states she is still urinating. She is having normal bowel movements. She denies any fevers. She states that the pain is sharp and stabbing, does not radiate. She has had similar pain to this in the past. She denies any urinary symptoms. She also notes that her blood sugar was over 400 today. States she is taking her regular medications as prescribed. - Related Data Allergies/Adverse Reactions: metoclopramide HCl [From milabent] Allergy (Unknown, Verified 05/21/19 02:12) Home Medications: Lantus, Novolog, Metoprolol, Lisinopril, Amlodipine Past Medical History - General Information source: Patient - Social History Smoking Status: Unknown if Ever Smoked Family History: None, DM, Hypertension Patient has suicidal ideation: No Patient has homicidal ideation: No - Past Medical History Cardiac Medical History: Reports: Hx Hypercholesterolemia, Hx Hypertension Endocrine Medical History: Reports: Hx Diabetes Mellitus Type 2. Denies: Hx Diabetes Mellitus Type 1 Renal/ Medical History: Reports: Hx Renal Insufficiency. Denies: Hx Peritoneal Dialysis GI Medical History: Reports: Hx Gastroesophageal Reflux Disease, Hx Hiatal Hernia Musculoskeletal Medical History: Reports Hx Arthritis Skin Medical History: Reports Hx Eczema Psychiatric Medical History: Reports: Hx Anxiety, Hx Bipolar Disorder, Hx Depression Infectious Medical History: Reports: Hx MRSA Past Surgical History: Reports: Hx Cholecystectomy - Immunizations Immunizations up to date: Yes Hx Diphtheria, Pertussis, Tetanus Vaccination: Yes - unknown Hx Pneumococcal Vaccination: 05/04/10 Review of Systems - Review of Systems Constitutional: No symptoms reported EENT: No symptoms reported Cardiovascular: No symptoms reported Respiratory: No symptoms reported Gastrointestinal: See HPI Genitourinary: No symptoms reported Female Genitourinary: No symptoms reported Musculoskeletal: No symptoms reported Skin: No symptoms reported Neurological/Psychological: No symptoms reported Physical Exam - Vital signs Vitals: Temp Pulse Resp BP Pulse Ox 98.1 F 122 H 18 131/83 H 98 06/01/19 12:10 06/01/19 12:10 06/01/19 12:10 06/01/19 12:10 06/01/19 12:10 - Notes Notes: Is a 44-year-old female who appears her stated age. She is rocking back and forth in the bed. Vital signs reviewed, please refer to chart. Head is normocephalic, atraumatic. Pupils equal round, reactive to light. Neck is supple without meningismus. Heart is regular rate and rhythm. Lungs are clear to auscultation bilaterally. Abdomen is soft, moderately tender in the epigastrium without rebound or guarding, normoactive bowel sounds throughout. Extremities without cyanosis, clubbing. Posterior calves are nontender. Peripheral pulses are equal. Skin is warm and dry. Patient is awake, alert, neurological exam is nonfocal. Course - Re-evaluation Re-evalutation: 06/01/19 13:28 Patient presents to the emergency department for evaluation. She has nausea, emesis, abdominal pain. This seems to be a chronic issue for this patient. I did review her prior medical testing here. She had a gastric emptying study done in 2018. It at that time she had normal gastric emptying. This seems to be, however, chronic abdominal pain and vomiting. She was medicated with Haldol and Benadryl, which seems to have helped her in the past. She is given IV fluids. Awaiting lab results. 06/01/19 14:20 I received EKG from nursing. Upon review, there were some ST changes over the anteroseptal leads concerning for infarction. This was when compared to old study. I went back and revisited the patient. She was resting comfortably. She states that this pain is epigastric, it does not radiate. She states this is similar to the pain she always gets. She denies any other associated symptoms. I did order aspirin, monitor, and troponin on this patient. We will continue to monitor. 06/01/19 17:47 I went back to check on the patient multiple times and she was resting comfortably. I was later notified, after she got repeat troponin ordered, that she was complaining of pain. She was given a GI cocktail. She came to the nurses desk and said that she needed to tell her doctor to "give her something real for pain." This is a chronic issue for this patient. I explained to her that it was in violation of our narcotics and sedatives practice guidelines to treat her chronic condition with narcotic medications. I would be more than happy to offer her other medications to help her with her symptoms. She states that she does not want any other medications. I strongly encouraged her to follow-up with GI and primary care. She voiced understanding. She is to return to the ED with worsening or new concerning symptoms of any sort. I did talk to her at length about her abnormal EKG as well. In light of 2 negative sets of cardiac enzymes, I do believe this are just nonspecific anteroseptal changes of her ST segments. She does, however, have significant risk factors for coronary artery disease, given her hypertension, hyperlipidemia, obesity, and diabetes. She is not had any cardiac testing. I encouraged her to follow-up with her primary care provider and seek out the possibility of an outpatient stress test. She voiced understanding to this as well and was discharged. 06/01/19 18:34 I was notified by nursing that the patient's blood pressure was markedly elevated at the time of discharge. It was checked manually and found to be over 200 systolic. I went into the patient's room, asked her about her medications. I asked her where her clonidine patch was. She states that it was refilled but she has yet to pick it up. My suspicion is that this is also the case for her metoprolol. I explained to the patient that withdrawal of clonidine while on metoprolol can cause severe hypertension. The risk of heart attack and stroke associated with this sudden rise in blood pressure was explained to the patient as well. It was explained to her that she needs to fill her prescriptions and take her medications appropriately. I did order her clonidine patch as well as a dose of metoprolol. She is to follow-up closely with primary care. - Vital Signs Vital signs: Temp Pulse Resp BP Pulse Ox 98.1 F 122 H 20 197/103 H 100 06/01/19 12:10 06/01/19 12:10 06/01/19 18:07 06/01/19 18:07 06/01/19 18:07 - Laboratory Result Diagrams: 06/01/19 13:55 06/01/19 13:55 Laboratory results interpreted by me: 06/01/19 06/01/19 06/01/19 12:50 13:55 13:55 WBC 16.0 H MCV 79 L MCH 25.7 L RDW 16.8 H Absolute Neuts (auto) 11.4 H VBG pH VBG pCO2 Sodium 133.2 L Chloride 96 L Carbon Dioxide 21 L Creatinine 1.37 H Est GFR ( Amer) 51 L Est GFR (MDRD) Non-Af 42 L Glucose 222 H POC Glucose 272 H Calcium 10.5 H Total Protein 8.7 H 06/01/19 13:55 WBC MCV MCH RDW Absolute Neuts (auto) VBG pH 7.43 H VBG pCO2 34.0 L Sodium Chloride Carbon Dioxide Creatinine Est GFR ( Amer) Est GFR (MDRD) Non-Af Glucose POC Glucose Calcium Total Protein - EKG Interpretation by Me Additional EKG results interpreted by me: 06/01/19 14:21 Sinus tachycardia rate [address] changes in the anteroseptal leads, concerning for acute SC, but no reciprocal changes are noted. Inferior T wave inversions are unchanged from prior study of May 21, 2019. Discharge - Discharge Clinical Impression: Chronic abdominal pain, Abnormal EKG Condition: Stable Disposition: HOME, SELF-CARE Instructions: Abdominal Pain ([facility]), Chronic Pain Control ([facility]) Additional Instructions: Please follow-up with your primary care provider this week. You should also discuss further outpatient testing of your heart, including a possible stress test. Return to the ED with worsening or new concerning symptoms of any sort. Referrals: GLEN MCGRATH PA-C [Primary Care Provider] - Follow up as needed
[2019-06-01 14:10] LABS: ABSOLUTE BASOPHILS # (AUTO) 0.1 10^3/uL (0.0-0.2); ABSOLUTE LYMPHOCYTES (AUTO) 3.3 10^3/uL (0.5-4.7); ABSOLUTE MONOCYTES (AUTO) 1.2 10^3/uL (0.1-1.4); ABSOLUTE NEUT (AUTO) 11.4 10^3/uL (1.7-8.2); BASOPHILS % (AUTO) 0.9 % (0-2); EOSINOPHILS % (AUTO) 0.1 % (0-6); HEMATOCRIT 37.3 % (36.0-47.0); HEMOGLOBIN 12.2 g/dL (12.0-15.5); LYMPHOCYTES % (AUTO) 20.5 % (13-45); MEAN CORPUSCULAR HEMOGLOBIN 25.7 pg (27.0-33.4); MEAN CORPUSCULAR HGB CONC 32.6 g/dL (32.0-36.0); MEAN CORPUSCULAR VOLUME 79 fl (80-97); MONOCYTES % (AUTO) 7.4 % (3-13); PLATELET COUNT 407 10^3/uL (150-450); RED BLOOD COUNT 4.73 10^6/uL (3.72-5.28); RED CELL DISTRIBUTION WIDTH 16.8 % (11.5-14.0); SEGMENTED NEUTROPHILS % (AUTO) 71.1 % (42-78); TOTAL CELLS COUNTED % (AUTO) 100 %
[2019-06-01 14:15] LABS: VENOUS BLOOD BASE EXCESS -1.6 mmol/L; VENOUS BLOOD HCO3 22.1 mmol/L (20-32); VENOUS BLOOD PH 7.43 (7.30-7.42)
[2019-06-01] MEDS ORDERED: ASPIRIN 81 MG TABLET, CHEWABLE PO ONE (14:16)
[2019-06-01 14:22] LABS: ALBUMIN 4.8 g/dL (3.5-5.0); ALKALINE PHOSPHATASE 120 U/L (38-126); ANION GAP 16 (5-19); ASPARTATE AMINO TRANSFERASE 31 U/L (14-36); BILIRUBIN,DIRECT 0.3 mg/dL (0.0-0.4); BILIRUBIN,TOTAL 0.8 mg/dL (0.2-1.3); BLOOD UREA NITROGEN 17 mg/dL (7-20); CALCIUM 10.5 mg/dL (8.4-10.2); CARBON DIOXIDE 21 mmol/L (22-30); CHLORIDE 96 mmol/L (98-107); GLUCOSE 222 mg/dL (75-110); POTASSIUM 4.3 mmol/L (3.6-5.0); TOTAL PROTEIN 8.7 g/dL (6.3-8.2)
[2019-06-01] MEDS ORDERED: MAG HYDROX/AL HYDROX/SIMETH SUSP 30 ML UDCUP PO ONE (16:49)
[2019-06-01] MEDS ORDERED: LIDOCAINE 2% VISCOUS SOLN 20 ML UDCUP PO ONE (16:49)
[2019-06-01 16:54] LABS: URINE AMPHETAMINES SCREEN NEGATIVE; URINE BARBITURATES SCREEN UNCONFIRMED POSITIVE; URINE BENZODIAZEPINES SCREEN NEGATIVE; URINE COCAINE SCREEN NEGATIVE; URINE MARIJUANA (THC) SCREEN NEGATIVE; URINE METHADONE SCREEN NEGATIVE; URINE PHENCYCLIDINE SCREEN NEGATIVE
[2019-06-01] MEDS ORDERED: METOPROLOL TARTRATE 25 MG TABLET PO ONE (18:34)
[2019-06-01] MEDS ORDERED: CLONIDINE 0.2 MG/24 HR PATCH.TDWK TD ONE (18:34)
[2019-06-01 18:39] VITALS: BP 202/104
--- NOTE | 2019-06-01 22:11 | EKG REPORT ---
SEVERITY:- ABNORMAL ECG - SINUS TACHYCARDIA PROBABLE ANTERIOR INFARCT, ACUTE vs LVH BORDERLINE T ABNORMALITIES, INFERIOR LEADS : Confirmed by: Opal Garcia 01-Jun-2019 22:10:57
--- NOTE | 2019-06-01 22:11 | EKG REPORT ---
SEVERITY:- ABNORMAL ECG - SINUS TACHYCARDIA CONSIDER ANTEROSEPTAL INFARCT NONSPECIFIC T ABNORMALITIES, INFERIOR LEADS : Confirmed by: Opal Garcia 01-Jun-2019 22:10:27
== END 2019-06-01 18:57 | disposition home or self-care (01) ==
LOC: ER 11:55
DX: R10.13 Epigastric pain (principal); G89.29 Other chronic pain; R94.31 Abnormal electrocardiogram [ECG] [EKG]; R10.816 Epigastric abdominal tenderness; R00.0 Tachycardia, unspecified; I10 Essential (primary) hypertension; T46.5X6A Underdosing of other antihypertensive drugs, initial encounter; Z91.128 Patient's intentional underdosing of medication regimen for other reason; Z91.14 Patient's other noncompliance with medication regimen; R11.2 Nausea with vomiting, unspecified; E66.9 Obesity, unspecified; E78.5 Hyperlipidemia, unspecified; E11.9 Type 2 diabetes mellitus without complications; Z79.4 Long term (current) use of insulin; Z79.899 Other long term (current) drug therapy; Z88.8 Allergy status to other drugs, medicaments and biological substances; Z87.19 Personal history of other diseases of the digestive system; Z90.49 Acquired absence of other specified parts of digestive tract
CPT/HCPCS: 93005; 99284; 96361; 96374; 96375; 36415; 82962; 83690; 85025; 80053; 84484; 80307; 82803; 93010; A9270 ×4; J1200; J1630; J3490; J7030

== ENCOUNTER 2019-06-14 14:20 | Emergency (ER) | payer MEDICARE, MEDICAID ==
[2019-06-14] MEDS ORDERED: NORMAL SALINE 1000 ML 1,000 ML IV ONE ×3 (14:44→17:52)
[2019-06-14] MEDS ORDERED: FAMOTIDINE INJ/PF 20 MG/2 ML SDV IV ONE (14:45)
[2019-06-14] MEDS ORDERED: DIPHENHYDRAMINE HCL 50 MG/ML VIAL IV ONE (14:45)
--- NOTE | 2019-06-14 14:47 | ER Document Report ---
ED Medical Screen (RME) - General Chief Complaint: Vomiting Stated Complaint: VOMITING Time Seen by Provider: 06/14/19 14:40 Primary Care Provider: GLEN MCGRATH PA-C [Primary Care Provider] - Follow up as needed Information source: Patient Notes: Patient presents with nausea vomiting and abdominal pain that started today. Patient has a history of hypertension diabetes and gastroparesis. Patient states this is typical of flareups that she has had in the past. Patient continually rocking in triage insisting on sitting on the floor. I have greeted and performed a rapid initial assessment of this patient. A comprehensive ED assessment and evaluation of the patient, analysis of test results and completion of the medical decision making process will be conducted by additional ED providers. TRAVEL OUTSIDE OF THE [place] IN LAST 30 DAYS: No - Related Data Allergies/Adverse Reactions: metoclopramide HCl [From Reglan] Allergy (Unknown, Verified 05/21/19 02:12) Past Medical History - Social History Family history: DM, Hypertension - Past Medical History Cardiac Medical History: Reports: Hx Hypercholesterolemia, Hx Hypertension Endocrine Medical History: Reports: Hx Diabetes Mellitus Type 2. Denies: Hx Diabetes Mellitus Type 1 Renal/ Medical History: Reports: Hx Renal Insufficiency. Denies: Hx Peritoneal Dialysis GI Medical History: Reports: Hx Gastroesophageal Reflux Disease, Hx Hiatal Hernia Musculoskeltal Medical History: Reports Hx Arthritis Skin Medical History: Reports Hx Eczema Psychiatric Medical History: Reports: Hx Anxiety, Hx Bipolar Disorder, Hx Depression Infectious Medical History: Reports: Hx MRSA Past Surgical History: Reports: Hx Cholecystectomy - Immunizations Immunizations up to date: Yes Hx Diphtheria, Pertussis, Tetanus Vaccination: Yes - unknown Physical Exam - Vital signs Vitals: Temp Pulse Resp BP Pulse Ox 97.7 F 137 H 22 H 197/135 H 100 06/14/19 14:24 06/14/19 14:24 06/14/19 14:24 06/14/19 14:24 06/14/19 14:24 - Abdominal Tenderness: Tender - Generalized abdomen Course - Vital Signs Vital signs: Temp Pulse Resp BP Pulse Ox 97.7 F 137 H 22 H 197/135 H 100 06/14/19 14:24 06/14/19 14:24 06/14/19 14:24 06/14/19 14:24 06/14/19 14:24 Doctor's Discharge - Discharge Referrals: GLEN MCGRATH PA-C [Primary Care Provider] - Follow up as needed
[2019-06-14 15:47] LABS: APPEARANCE,URINE CLEAR; BILIRUBIN,URINE NEGATIVE (NEGATIVE); COLOR,URINE STRAW; GLUCOSE, URINE >=500 mg/dL (NEGATIVE); KETONES,URINE 20 mg/dL (NEGATIVE); LEUKOCYTE ESTERASE,URINE NEGATIVE (NEGATIVE); NITRITE,URINE NEGATIVE (NEGATIVE); PROTEIN,URINE 100 mg/dL (NEGATIVE); URINE SPECIFIC GRAVITY 1.016; UROBILINOGEN,URINE NEGATIVE mg/dL (<2.0)
[2019-06-14] MEDS ORDERED: HALOPERIDOL LACTATE INJ 5 MG/1 ML VIAL IM ONE (15:54)
[2019-06-14 16:15] LABS: ABSOLUTE LYMPHOCYTES (AUTO) 1.3 10^3/uL (0.5-4.7); ABSOLUTE MONOCYTES (AUTO) 0.6 10^3/uL (0.1-1.4); ABSOLUTE NEUT (AUTO) 11.8 10^3/uL (1.7-8.2); BASOPHILS % (AUTO) 0.2 % (0-2); HEMATOCRIT 40.6 % (36.0-47.0); HEMOGLOBIN 13.4 g/dL (12.0-15.5); LYMPHOCYTES % (AUTO) 9.2 % (13-45); MEAN CORPUSCULAR VOLUME 79 fl (80-97); MONOCYTES % (AUTO) 4.2 % (3-13); PLATELET COUNT 409 10^3/uL (150-450); RED BLOOD COUNT 5.14 10^6/uL (3.72-5.28); RED CELL DISTRIBUTION WIDTH 17.2 % (11.5-14.0); SEGMENTED NEUTROPHILS % (AUTO) 86.4 % (42-78); TOTAL CELLS COUNTED % (AUTO) 100 %; WHITE BLOOD COUNT 13.6 10^3/uL (4.0-10.5)
[2019-06-14 16:19] LABS: VENOUS BLOOD BASE EXCESS -5.1 mmol/L; VENOUS BLOOD HCO3 17.1 mmol/L (20-32); VENOUS BLOOD PCO2 25.1 mmHg (35-63); VENOUS BLOOD PH 7.45 (7.30-7.42)
--- NOTE | 2019-06-14 16:29 | ER Document Report ---
ED General - General Chief Complaint: Abdominal Pain Stated Complaint: VOMITING Time Seen by Provider: 06/14/19 14:40 Primary Care Provider: GLEN MCGRATH PA-C [Primary Care Provider] - Follow up as needed Notes: 44-year-old female with history of diabetes, hypertension, and gastroparesis presents with abdominal pain and nausea vomiting that started this morning. Patient states this feels like her usual gastroparesis pain. Patient denies any fever, chills, diarrhea, constipation, chest pain, dyspnea. TRAVEL OUTSIDE OF THE [place] IN LAST 30 DAYS: No - Related Data Allergies/Adverse Reactions: metoclopramide HCl [From Encision] Allergy (Unknown, Verified 05/21/19 02:12) Past Medical History - General Information source: Patient - Social History Smoking Status: Unknown if Ever Smoked Family History: None, DM, Hypertension Patient has suicidal ideation: No Patient has homicidal ideation: No - Past Medical History Cardiac Medical History: Reports: Hx Hypercholesterolemia, Hx Hypertension Endocrine Medical History: Reports: Hx Diabetes Mellitus Type 2. Denies: Hx Diabetes Mellitus Type 1 Renal/ Medical History: Reports: Hx Renal Insufficiency. Denies: Hx Perit sanon Dialysis GI Medical History: Reports: Hx Gastroesophageal Reflux Disease, Hx Hiatal Hernia Musculoskeletal Medical History: Reports Hx Arthritis Skin Medical History: Reports Hx Eczema Psychiatric Medical History: Reports: Hx Anxiety, Hx Bipolar Disorder, Hx Depression Infectious Medical History: Reports: Hx MRSA Past Surgical History: Reports: Hx Cholecystectomy - Immunizations Immunizations up to date: Yes Hx Diphtheria, Pertussis, Tetanus Vaccination: Yes - unknown Hx Pneumococcal Vaccination: 05/04/10 Review of Systems - Review of Systems Notes: Constitutional: Negative for fever. HENT: Negative for sore throat. Eyes: Negative for visual changes. Cardiovascular: Negative for chest pain. Respiratory: Negative for shortness of breath. Gastrointestinal: Positive for abdominal pain, vomiting. Negative for diarrhea. Genitourinary: Negative for dysuria. Musculoskeletal: Negative for back pain. Skin: Negative for rash. Neurological: Negative for headaches, weakness or numbness. 10 point ROS negative except as marked above and in HPI. Physical Exam - Vital signs Vitals: Temp Pulse Resp BP Pulse Ox 97.7 F 137 H 22 H 197/135 H 100 06/14/19 14:24 06/14/19 14:24 06/14/19 14:24 06/14/19 14:24 06/14/19 14:24 - Notes Notes: GENERAL: Well-appearing, well-nourished, rocking back and forth in bed HEAD: Atraumatic, normocephalic. EYES: Extraocular movements intact, sclera anicteric, conjunctiva are normal. NECK: Normal range of motion, supple without lymphadenopathy or JVD. LUNGS: Breath sounds clear to auscultation bilaterally and equal. No wheezes rales or rhonchi. HEART: Tachycardiac without murmurs, rubs or gallops. ABDOMEN: Soft, diffusely tender. No guarding, no rebound. No masses appreciated. EXTREMITIES: Normal range of motion, no pitting or edema. No clubbing or cyanosis. NEUROLOGICAL: Cranial nerves II through XII grossly intact. Normal speech, normal gait. PSYCH: Normal mood, normal affect. SKIN: Warm, Dry, normal turgor, no rashes or lesions noted. Course - Re-evaluation Re-evalutation: 06/14/19 nontoxic, well-appearing female presents with abdominal pain, nausea, and vomiting. Patient has a history of gastroparesis and states this feels similar. Abdomen soft, diffusely tender. Patient was given Pepcid and Benadryl out in triage with little relief. Haldol was ordered IM. IV fluids boluses were also ordered. Patient became upset when she heard that Haldol had been ordered, she states "you need to give me some real pain medicine." Told her we would try Haldol first and if that did not work then we would have other options. 06/14/19 17:28 Corrected Ca 11. Pt is tachycardiac at 120s now. Ordered insulin and IV fluids. Pain medication also ordered. 06/14/19 19:46 Pt's acidosis has improved. CO2 has normalized. 06/14/19 19:47 HR improved to 108. 06/14/19 19:57 PO challenge passed. Accucheck is 210. Pt to be given Bentyl and Zofran for symptoms and norco pack to go for breakthrough pain. Pt given close follow up with PCP due to elevated Ca. Strict return precautions given. All questions/concerns addressed prior to discharge. - Vital Signs Vital signs: Temp Pulse Resp BP Pulse Ox 98.0 F 108 H 16 210/100 H 100 06/14/19 19:29 06/14/19 19:29 06/14/19 19:29 06/14/19 19:29 06/14/19 19:29 - Laboratory Result Diagrams: 06/14/19 16:00 06/14/19 16:00 Laboratory results interpreted by me: 06/14/19 06/14/19 06/14/19 15:20 16:00 16:00 WBC 13.6 H MCV 79 L MCH 26.0 L RDW 17.2 H Lymph % (Auto) 9.2 L Absolute Neuts (auto) 11.8 H Seg Neutrophils % 86.4 H VBG pH VBG pCO2 VBG HCO3 Carbon Dioxide 17 L Anion Gap 22 H Glucose 299 H POC Glucose Calcium 12.0 H* Ionized Calcium [place] Alkaline Phosphatase 145 H Total Protein 9.0 H Albumin 5.3 H Urine Protein 100 H Urine Glucose (UA) >=500 H Urine Ketones 20 H 06/14/19 06/14/19 06/14/19 16:00 18:24 18:38 WBC MCV MCH RDW Lymph % (Auto) Absolute Neuts (auto) Seg Neutrophils % VBG pH 7.45 H VBG pCO2 25.1 L VBG HCO3 17.1 L Carbon Dioxide Anion Gap Glucose POC Glucose 199 H Calcium Ionized Calcium [place] 0.83 L Alkaline Phosphatase Total Protein Albumin Urine Protein Urine Glucose (UA) Urine Ketones 06/14/19 19:21 WBC MCV MCH RDW Lymph % (Auto) Absolute Neuts (auto) Seg Neutrophils % VBG pH 7.27 L VBG pCO2 VBG HCO3 16.1 L Carbon Dioxide Anion Gap Glucose POC Glucose Calcium Ionized Calcium [place] Alkaline Phosphatase Total Protein Albumin Urine Protein Urine Glucose (UA) Urine Ketones Discharge - Discharge Clinical Impression: Hypercalcemia Abdominal pain Qualifiers: Abdominal location: generalized Qualified Code(s): R10.84 - Generalized abdominal pain Nausea & vomiting Qualifiers: Vomiting type: unspecified Vomiting Intractability: unspecified Qualified Code(s): R11.2 - Nausea with vomiting, unspecified Condition: Stable Disposition: HOME, SELF-CARE Instructions: Abdominal Pain ([facility]), Pain Medication Injection ([facility]) Additional Instructions: Your lab work improved today. Your calcium level was high today. Please take medication as prescribed. Do not drink or drive while taking [place] as it may make you drowsy. Please follow up with your primary care doctor concerning further workup of your calcium levels and of your abdominal pain. Follow up with GI concerning your abdominal pain. Return to ER for any worsening symptoms, including worsening abdominal pain, vomiting not controlled by medication, fever, chest pain, shortness of breath, or any other symptoms that are concerning to you. Prescriptions: Ondansetron [Zofran Odt 4 mg Tablet] 4 mg PO Q4HP PRN #30 tab.rapdis PRN Reason: Dicyclomine HCl [Bentyl 20 mg Tablet] 20 mg PO QID #40 tablet Referrals: GLEN MCGRATH PA-C [Primary Care Provider] - Follow up in 3-5 days
[2019-06-14 16:34] LABS: ALBUMIN 5.3 g/dL (3.5-5.0); ALKALINE PHOSPHATASE 145 U/L (38-126); ASPARTATE AMINO TRANSFERASE 36 U/L (14-36); BILIRUBIN,TOTAL 0.5 mg/dL (0.2-1.3); BLOOD UREA NITROGEN 8 mg/dL (7-20); GLUCOSE 299 mg/dL (75-110); POTASSIUM 4.8 mmol/L (3.6-5.0)
[2019-06-14 16:39] LABS: CARBON DIOXIDE 17 mmol/L (22-30); CHLORIDE 100 mmol/L (98-107)
[2019-06-14 16:46] LABS: ANION GAP 22 (5-19)
[2019-06-14] MEDS ORDERED: DICYCLOMINE HCL INJ 20 MG/2 ML AMPULE IM ONE (16:54)
[2019-06-14] MEDS ORDERED: INSULIN REG, HUMAN 100 UNIT/ML 3 ML VIAL (PYX) IV ONE (17:27)
[2019-06-14] MEDS ORDERED: MORPHINE SULFATE 10 MG/ML INJ IV ONE (17:28)
[2019-06-14] MEDS ORDERED: AMLODIPINE BESYLATE 10 MG TABLET PO ONE (18:12)
[2019-06-14] MEDS ORDERED: METOPROLOL TARTRATE PF/INJ 5 MG/5 ML SDV IV ONE ×2 (18:14→19:35)
--- NOTE | 2019-06-14 18:30 | EKG REPORT ---
SEVERITY:- BORDERLINE ECG - SINUS TACHYCARDIA BORDERLINE T ABNORMALITIES, INFERIOR LEADS : Confirmed by: Buffy Guajardo MD 14-Jun-2019 18:29:17
[2019-06-14 19:36] LABS: VENOUS BLOOD BASE EXCESS -9.8 mmol/L; VENOUS BLOOD HCO3 16.1 mmol/L (20-32); VENOUS BLOOD PCO2 35.7 mmHg (35-63); VENOUS BLOOD PH 7.27 (7.30-7.42)
[2019-06-14] MEDS ORDERED: HYDROCODONE/ACETAMINOPHEN 5-325 MG (6 TAB/ER DISP) PO PRN (20:05)
[2019-06-14 20:25] VITALS: BP 215/102
== END 2019-06-14 20:20 | disposition home or self-care (01) ==
LOC: ER 14:20
DX: E11.43 Type 2 diabetes mellitus with diabetic autonomic (poly)neuropathy (principal); K31.84 Gastroparesis; E83.52 Hypercalcemia; E87.2 Acidosis; R10.84 Generalized abdominal pain; R10.817 Generalized abdominal tenderness; R00.0 Tachycardia, unspecified; I10 Essential (primary) hypertension; R11.2 Nausea with vomiting, unspecified; Z88.8 Allergy status to other drugs, medicaments and biological substances
CPT/HCPCS: 93005; 96376; 99284; 96372; 96361; 96374; 96375; 36415; 82962; 83690; 85025; 80053; 81001; 82803; 82330; 93010; J0500; J1200; J1630; J3490; J2270; A9270 ×2; J7030; S0028; J1815

== ENCOUNTER 2019-06-16 17:58 | Inpatient (IN) | payer MEDICARE, MEDICAID ==
[2019-06-16] MEDS ORDERED: LORAZEPAM INJ 2 MG/1 ML VIAL IV ONE (18:58)
--- NOTE | 2019-06-16 19:08 | ER Document Report ---
ED General - General Chief Complaint: Anxiety Stated Complaint: ANXIETY Time Seen by Provider: 06/16/19 18:19 Primary Care Provider: GLEN MCGRATH PA-C [Primary Care Provider] - Follow up as needed TRAVEL OUTSIDE OF THE [place] IN LAST 30 DAYS: No - HPI Notes: 44-year-old female well-known to this emergency department with a history of bipolar disorder, chronic anxiety, noncompliance, diabetes mellitus type 2 and diabetic gastroparesis with recurrent episodes of cyclic vomiting now presenting with a chief complaint of severe anxiety. Worse since last night. Unable to identify any specific precipitating factor. Patient is supposed to be taking BuSpar but says she is not taken the medication and has not felt like eating or drinking. She denies any other specific complaints at this time. She says she vomited once last night but none since then. - Related Data Allergies/Adverse Reactions: metoclopramide HCl [From Reglan] Allergy (Unknown, Verified 05/21/19 02:12) Past Medical History - General Information source: Patient, Friend, [facility] Records - Social History Smoking Status: Never Smoker Chew tobacco use (# tins/day): No Frequency of alcohol use: None Drug Abuse: None Family History: None, DM, Hypertension Patient has suicidal ideation: No Patient has homicidal ideation: No - Past Medical History Cardiac Medical History: Reports: Hx Hypercholesterolemia, Hx Hypertension Endocrine Medical History: Reports: Hx Diabetes Mellitus Type 2. Denies: Hx Diabetes Mellitus Type 1 Renal/ Medical History: Reports: Hx Renal Insufficiency. Denies: Hx Peritoneal Dialysis GI Medical History: Reports: Hx Gastroesophageal Reflux Disease, Hx Hiatal H ernia Musculoskeletal Medical History: Reports Hx Arthritis Skin Medical History: Reports Hx Eczema Psychiatric Medical History: Reports: Hx Anxiety, Hx Bipolar Disorder, Hx Depression Infectious Medical History: Reports: Hx MRSA Past Surgical History: Reports: Hx Cholecystectomy - Immunizations Immunizations up to date: Yes Hx Diphtheria, Pertussis, Tetanus Vaccination: Yes - unknown Hx Pneumococcal Vaccination: 05/04/10 Review of Systems - Review of Systems Notes: Constitutional: Negative for fever. HENT: Negative for sore throat. Eyes: Negative for visual changes. Cardiovascular: Negative for chest pain. Respiratory: Negative for shortness of breath. Gastrointestinal: As per HPI. Genitourinary: Negative for dysuria. Musculoskeletal: Negative for back pain. Skin: Negative for rash. Neurological: Negative for headaches, weakness or numbness. 10 point ROS negative except as marked above and in HPI. Physical Exam - Vital signs Vitals: Temp Pulse Resp BP Pulse Ox 98.2 F 120 H 28 H 190/100 H 100 06/16/19 19:05 06/16/19 19:05 06/16/19 19:05 06/16/19 19:05 06/16/19 19:05 - Notes Notes: GENERAL: Female patient appearing approximately her stated age who is extremely anxious and flailing [id number] on the bed with wide-eyed stare. SKIN: Good turgor no rashes. HEAD: Normocephalic atraumatic. EYES: PERRLA. EOMI. Conjunctivae and sclerae clear. EARS: CANALS AND TMS CLEAR. NOSE: CLEAR. MOUTH: Moist mucosa. Good dentition. No stridor or edema. No drooling. NECK: Supple. No masses or thyromegaly. No adenopathy. Carotids 2+ without bruits. No JVD. BACK: Symmetrical without tenderness. CHEST: Respirations unlabored. Breath sounds clear and symmetrical. HEART: Tachycardic regular rhythm. No murmur gallop or rub. ABDOMEN: Mildly obese. Soft nontender without masses, organomegaly or rebound. Bowel sounds normally active. No bruits. GENITALIA: Deferred. EXTREMITIES: No edema. No calf tenderness. Cap refill less than 1.5 seconds. Dorsalis pedis and posterior tibial pulses 3+ and symmetrical. NEUROLOGICAL: GCS 15. Alert and oriented x3. Normal gait. Fluent speech. Cranial nerves II through XII intact. Sensorimotor and cerebellar normal. Normal tone. PSYCHIATRIC: Extremely anxious. Denies suicidal or homicidal thoughts. Denies hallucinations. Course - Re-evaluation Re-evalutation: 06/16/19 19:07 We will going check CBC and comprehensive chemistry profile and also get a test, urinalysis and urine drug screen. I am going to give her some IV hydration and give her dose of IV Ativan at this point and then reevaluate. EKG was obtained and is remarkable only for sinus tachycardia. 06/16/19 21:12 Patient has had adequate volume loading and is still in a rapid narrow complex rhythm which looks like sinus tachycardia but I questionable this could possibly be atrial flutter. Her urine drug screen was negative for cocaine or stimulants. Her blood sugar is elevated in the 300s but her CO2 is relatively normal. Venous blood gas is pending. Vasovagal maneuvers were attempted with no unmasking of flutter waves or significant slowing. I elected to try chemical cardioversion with adenosine IV. She was given 3 serial doses 6 mg, 12 mg and 12 mg. Each time she would block down briefly to what appeared to be a sinus bradycardia with no evidence of flutter waves. I think this is actually an SVT which we are temporarily blocking but not breaking. Blood pressure remains very elevated around 220/115. I am going to give her some IV Lopressor. If this is not successful the other consideration will be cardioversion. 06/17/19 03:04 On follow-up evaluation patient was clearly in a sinus tachycardia. She did not require cardioversion. Blood pressure initially came down with some IV Lopressor but has remained somewhat labile up and down. We noticed him to take this with a manual cuff it systolic is consistently under 180 diastolic is under 110. Patient passed a large dark stool. This was heme positive. Her H&H was recheck ed and this remains stable. Findings have been discussed with hospitalist on-call Dr. Lester Hendricks who is agreed to admit. - Vital Signs Vital signs: Temp Pulse Resp BP Pulse Ox 98.8 F 120 H 20 165/114 H 97 06/16/19 23:24 06/16/19 19:05 06/17/19 00:50 06/17/19 00:50 06/17/19 00:50 - Laboratory Result Diagrams: 06/17/19 00:15 06/17/19 00:15 Laboratory results interpreted by me: 06/16/19 06/16/19 06/16/19 19:01 19:01 19:01 WBC 18.3 H MCV 78 L MCH 25.5 L RDW 17.4 H Lymph % (Auto) 8.1 L Absolute Neuts (auto) 15.7 H Absolute Monos (auto) Seg Neutrophils % 85.6 H VBG pH VBG pCO2 Sodium 131.8 L Chloride 93 L Carbon Dioxide 19 L Anion Gap 20 H Est GFR (MDRD) Non-Af 58 L Glucose 338 H POC Glucose Calcium 10.5 H Magnesium 1.4 L AST 38 H Total Protein 8.4 H Urine Protein 30 H Urine Glucose (UA) >=500 H Urine Ketones 20 H Salicylates < 1.0 L Acetaminophen < 10 L 06/16/19 06/16/19 06/16/19 19:01 19:34 22:04 WBC MCV MCH RDW Lymph % (Auto) Absolute Neuts (auto) Absolute Monos (auto) Seg Neutrophils % VBG pH 7.49 H VBG pCO2 29.6 L Sodium Chloride Carbon Dioxide Anion Gap Est GFR (MDRD) Non-Af Glucose POC Glucose 304 H 285 H Calcium Magnesium AST Total Protein Urine Protein Urine Glucose (UA) Urine Ketones Salicylates Acetaminophen 06/17/19 06/17/19 00:15 00:15 WBC 17.5 H MCV 78 L MCH 25.8 L RDW 17.4 H Lymph % (Auto) 10.7 L Absolute Neuts (auto) 13.9 H Absolute Monos (auto) 1.6 H Seg Neutrophils % 79.6 H VBG pH VBG pCO2 Sodium 133.6 L Chloride Carbon Dioxide 20 L Anion Gap Est GFR (MDRD) Non-Af Glucose 278 H POC Glucose Calcium Magnesium AST Total Protein Urine Protein Urine Glucose (UA) Urine Ketones Salicylates Acetaminophen - EKG Interpretation by Me Additional EKG results interpreted by me: 06/16/19 19:08 Twelve-lead EKG reviewed contemporaneously by me 1854 hrs. This demonstrates sinus tachycardia with a rate of [address]/T wave changes or significant alteration of intervals or axis. This is compared to prior tracing of 06/14/2019 and is similar in appearance. Critical Care Note - Critical Care Note Total time excluding time spent on procedures (mins): 35 - Chemical cardioversion with adenosine Discharge - Discharge Clinical Impression: Tachycardia, Hypertensive urgency Bipolar disorder Qualifiers: Active/Remission status: currently active Current bipolar episode type: hypomanic Qualified Code(s): F31.0 - Bipolar disorder, current episode hypomanic Disposition: ADMITTED INPATIENT Admitting Provider: Eladio (Hospitalist) Unit Admitted: Telemetry Referrals: GLEN MCGRATH PA-C [Primary Care Provider] - Follow up as needed
[2019-06-16] MEDS: NORMAL SALINE 1000 ML 1,000 ML IV PRN ×2 (19:16→20:20)
[2019-06-16 19:21] LABS: ABSOLUTE BASOPHILS # (AUTO) 0.1 10^3/uL (0.0-0.2); ABSOLUTE LYMPHOCYTES (AUTO) 1.5 10^3/uL (0.5-4.7); ABSOLUTE MONOCYTES (AUTO) 1.1 10^3/uL (0.1-1.4); ABSOLUTE NEUT (AUTO) 15.7 10^3/uL (1.7-8.2); BASOPHILS % (AUTO) 0.4 % (0-2); HEMATOCRIT 39.4 % (36.0-47.0); HEMOGLOBIN 12.9 g/dL (12.0-15.5); LYMPHOCYTES % (AUTO) 8.1 % (13-45); MEAN CORPUSCULAR HEMOGLOBIN 25.5 pg (27.0-33.4); MEAN CORPUSCULAR HGB CONC 32.7 g/dL (32.0-36.0); MEAN CORPUSCULAR VOLUME 78 fl (80-97); MONOCYTES % (AUTO) 5.9 % (3-13); PLATELET COUNT 446 10^3/uL (150-450); RED BLOOD COUNT 5.05 10^6/uL (3.72-5.28); RED CELL DISTRIBUTION WIDTH 17.4 % (11.5-14.0); SEGMENTED NEUTROPHILS % (AUTO) 85.6 % (42-78); TOTAL CELLS COUNTED % (AUTO) 100 %; WHITE BLOOD COUNT 18.3 10^3/uL (4.0-10.5)
[2019-06-16 19:23] LABS: APPEARANCE,URINE CLEAR; BILIRUBIN,URINE NEGATIVE (NEGATIVE); COLOR,URINE STRAW; GLUCOSE, URINE >=500 mg/dL (NEGATIVE); KETONES,URINE 20 mg/dL (NEGATIVE); PROTEIN,URINE 30 mg/dL (NEGATIVE); URINE SPECIFIC GRAVITY 1.029; UROBILINOGEN,URINE NEGATIVE mg/dL (<2.0)
[2019-06-16 19:33] LABS: URINE AMPHETAMINES SCREEN NEGATIVE; URINE BARBITURATES SCREEN NEGATIVE; URINE COCAINE SCREEN NEGATIVE; URINE MARIJUANA (THC) SCREEN NEGATIVE; URINE METHADONE SCREEN NEGATIVE; URINE PHENCYCLIDINE SCREEN NEGATIVE
--- NOTE | 2019-06-16 19:33 | EKG REPORT ---
SEVERITY:- ABNORMAL ECG - SINUS TACHYCARDIA TAQUERIA, CONSIDER BIATRIAL ABNORMALITIES LVH WITH SECONDARY REPOLARIZATION ABNORMALITY PROBABLE INFERIOR INFARCT, OLD : Confirmed by: Eduardo Novak MD 16-Jun-2019 19:32:38
[2019-06-16 19:34] LABS: ALBUMIN 4.7 g/dL (3.5-5.0); ALKALINE PHOSPHATASE 125 U/L (38-126); ASPARTATE AMINO TRANSFERASE 38 U/L (14-36); BILIRUBIN,DIRECT 0.3 mg/dL (0.0-0.4); BILIRUBIN,TOTAL 0.9 mg/dL (0.2-1.3); BLOOD UREA NITROGEN 15 mg/dL (7-20); CALCIUM 10.5 mg/dL (8.4-10.2); GLUCOSE 338 mg/dL (75-110); POTASSIUM 4.6 mmol/L (3.6-5.0); TOTAL PROTEIN 8.4 g/dL (6.3-8.2); URINE BENZODIAZEPINES SCREEN UNCONFIRMED POSITIVE
[2019-06-16 19:39] LABS: CARBON DIOXIDE 19 mmol/L (22-30); CHLORIDE 93 mmol/L (98-107)
[2019-06-16 19:42] LABS: ACETAMINOPHEN < 10 ug/mL (10-30); ALCOHOL < 10 mg/dL (NONE DETECTED); ANION GAP 20 (5-19); SALICYLATE < 1.0 mg/dL (2.0-20.0)
[2019-06-16] MEDS ORDERED: ADENOSINE INJ/PF 6 MG/2 ML SDV IV ONE ×5 (20:26→22:12)
[2019-06-16] MEDS ORDERED: METOPROLOL TARTRATE PF/INJ 5 MG/5 ML SDV IV ONE ×4 (21:08→22:00)
[2019-06-16 21:09] LABS: VENOUS BLOOD BASE EXCESS -0.1 mmol/L; VENOUS BLOOD HCO3 22.2 mmol/L (20-32); VENOUS BLOOD PCO2 29.6 mmHg (35-63); VENOUS BLOOD PH 7.49 (7.30-7.42)
[2019-06-16] MEDS ORDERED: NORMAL SALINE 1000 ML 1,000 ML IV ONE (21:17)
[2019-06-16] MEDS ORDERED: KETOROLAC TROMETHAMINE INJ/PF 30 MG/1 ML SDV IV ONE (23:08)
[2019-06-16] MEDS ORDERED: FAMOTIDINE INJ/PF 20 MG/2 ML SDV IV ONE (23:12)
--- NOTE | 2019-06-16 23:20 | RADIOLOGY REPORT (SQ) ---
EXAM DESCRIPTION: CT HEAD WITHOUT IV CONTRAST COMPLETED DATE/TME: 06/16/2019 22:01 CLINICAL HISTORY: 44 years Female Hypertensive crisis COMPARISON: 11:15 TECHNIQUE: Contiguous axial CT images obtained through the brain without IV contrast. This exam was performed according to our department optimization program which includes automated exposure control, adjustment of the mA and/or kv according to patient size and/or use of iterative reconstruction technique. FINDINGS: The ventricles and sulci are within normal limits for the patient's age. No midline shift or mass effect. No masses identified. No acute intracranial hemorrhage. No fluid or significant mucosal thickening in the visualized paranasal sinuses. No depressed calvarial fractures. IMPRESSION: No acute intracranial abnormality is identified.
[2019-06-17 00:34] LABS: ABSOLUTE BASOPHILS # (AUTO) 0.1 10^3/uL (0.0-0.2); ABSOLUTE LYMPHOCYTES (AUTO) 1.9 10^3/uL (0.5-4.7); ABSOLUTE MONOCYTES (AUTO) 1.6 10^3/uL (0.1-1.4); ABSOLUTE NEUT (AUTO) 13.9 10^3/uL (1.7-8.2); BASOPHILS % (AUTO) 0.3 % (0-2); EOSINOPHILS % (AUTO) 0.1 % (0-6); HEMATOCRIT 38.3 % (36.0-47.0); HEMOGLOBIN 12.7 g/dL (12.0-15.5); LYMPHOCYTES % (AUTO) 10.7 % (13-45); MEAN CORPUSCULAR HEMOGLOBIN 25.8 pg (27.0-33.4); MEAN CORPUSCULAR HGB CONC 33.2 g/dL (32.0-36.0); MEAN CORPUSCULAR VOLUME 78 fl (80-97); MONOCYTES % (AUTO) 9.3 % (3-13); PLATELET COUNT 381 10^3/uL (150-450); RED BLOOD COUNT 4.93 10^6/uL (3.72-5.28); RED CELL DISTRIBUTION WIDTH 17.4 % (11.5-14.0); SEGMENTED NEUTROPHILS % (AUTO) 79.6 % (42-78); TOTAL CELLS COUNTED % (AUTO) 100 %; WHITE BLOOD COUNT 17.5 10^3/uL (4.0-10.5)
[2019-06-17 00:42] LABS: ANION GAP 14 (5-19); BLOOD UREA NITROGEN 13 mg/dL (7-20); CALCIUM 9.9 mg/dL (8.4-10.2); CARBON DIOXIDE 20 mmol/L (22-30); CHLORIDE 100 mmol/L (98-107); GLUCOSE 278 mg/dL (75-110); POTASSIUM 4.1 mmol/L (3.6-5.0)
--- NOTE | 2019-06-17 03:19 | RADIOLOGY REPORT (SQ) ---
CLINICAL HISTORY: Abdominal pain COMPARISON: None. 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 There are no abnormal radiopaque foreign bodies or abnormal calcifications. Osseous structures are grossly unremarkable. The heart is normal in size. Lungs are clear. Cholecystectomy was performed. IMPRESSION: No bowel obstruction.
[2019-06-17] MEDS ORDERED: MAGNESIUM HYDROXIDE SUSP 30 ML UDCUP PO PRN (03:56)
[2019-06-17] MEDS ORDERED: PROMETHAZINE HCL INJ 25 MG/1 ML VIAL IV PRN (03:56)
[2019-06-17] MEDS ORDERED: ACETAMINOPHEN 650 MG SUPP.RECT PR PRN (04:03)
[2019-06-17] MEDS ORDERED: CHLORPROMAZINE HCL INJ 25 MG/1 ML AMPULE IV PRN (04:03)
[2019-06-17] MEDS ORDERED: NALBUPHINE HCL INJ 10 MG/1 ML AMPULE IV PRN (04:03)
[2019-06-17] MEDS ORDERED: DIAZEPAM INJ 10 MG/2 ML DISP.SYRIN IV PRN (04:03)
[2019-06-17] MEDS ORDERED: GLUCAGON,HUMAN RECOMB 1 MG INJ IM PRN (04:06)
[2019-06-17] MEDS ORDERED: DEXTROSE 50%-WATER 25 GM/50 ML DISP.SYRIN IV PRN ×2 (04:06)
[2019-06-17] MEDS ORDERED: DEXTROSE 40% GEL 15 GM TUBE PO PRN ×2 (04:06)
[2019-06-17] MEDS: HYDRALAZINE HCL INJ/PF 20 MG/1 ML SDV IV PRN (05:03)
[2019-06-17 05:55] LABS: FREE T3 3.81 pg/mL (2.77-5.27)
[2019-06-17 06:09] LABS: THYROID STIMULATING HORMONE 0.37 uIU/mL (0.47-4.68)
[2019-06-17] MEDS: PANTOPRAZOLE SODIUM 40 MG TABLET.DR PO SCH ×2 (06:26→17:48)
[2019-06-17] MEDS: ACETAMINOPHEN 325 MG TABLET PO PRN ×2 (06:26→18:04)
--- NOTE | 2019-06-17 06:26 | PDOC H&P ---
History of Present Illness Admission Date/PCP: 06/17/2019 03:28 GLEN MCGRATH PA-C History of Present Illness: RUTH MURPHY is a 44 year old female who presented the emergency room with a 1 day history of anxiety. Patient admits acutely developing severe anxiety during the night of 06/15/2019. The anxiety has persisted since its onset and has progressively worsened to extreme severity. Her anxiety has been a ccompanied by restlessness, anorexia and one episode of vomiting. Her anxiety is also been associated with her recent self-discontinuation of BuSpar. She denies other associated or accompanying signs and symptoms. She admits numerous similar previous episodes. She has not identified any causative, aggravating or ameliorating factors for her anxiety. In the emergency room she was found to have a persistent tachycardia despite fluid resuscitation and anxiolytics. She was also severely hypertensive per automated evaluation but manual evaluations revealed moderate hypertension. The patient was also found to have a guaiac positive stool. She was subsequently admitted for further evaluation and treatment. Past Medical History Cardiac Medical History: Reports: Hyperlipidema, Hypertension Denies: Atrial Fibrillation, Coronary Artery Disease, DVT, Pulmonary Embolism Pulmonary Medical History: Denies: Asthma, Chronic Obstructive Pulmonary Disease (COPD) EENT Medical History: Reports: Ears - Hearing aids Denies: Cataracts Neurological Medical History: Denies: Hemorrhagic CVA, Ischemic CVA, Seizures Endocrine Medical History: Reports: Diabetes Mellitus Type 2 Denies: Diabetes Mellitus Type 1, Hyperthyroidism, Hypothyroidism, Obesity Renal/ Medical History: Denies: Chronic Kidney Disease, Nephrolithiasis Malignancy Medical History: Reports: None GI Medical History: Reports: Gastroesophageal Reflux Disease, Hiatal Hernia, Other - Diabetic gastroparesis with cyclic vomiting Denies: Cirrhosis, Crohn's Disease, Hepatitis, Peptic Ulcer Disease, Ulcerative Colitis Musculoskeltal Medical History: Reports: Arthritis Denies: Gout Skin Medical History: Reports: Eczema Denies: Psoriasis Psychiatric Medical History: Reports: Bipolar Disorder, Depression, General Anxiety Disorder Denies: Alcohol Dependency, Substance Abuse, Tobacco Dependency Traumatic Medical History: Reports: None Hematology: Reports: Anemia Denies: Bleeding Tendencies Infectious Medical History: Reports: Methicillin-Resistant Staph Aureus Past Surgical History Past Surgical History: Reports: Cholecystectomy Social History Information Source: Patient Lives with: Family Smoking Status: Never Smoker Electronic Cigarette use?: No Frequency of Alcohol Use: None Hx Recreational Drug Use: No Drugs: None Hx Prescription Drug Abuse: No - Advance Directive Resuscitation Status: Full Code Surrogate healthcare decision maker:: Annie uMrphy Family History Family History: DM, Hypertension. denies: CAD, Malignancy Parental Family History Reviewed: Yes Children Family History Reviewed: No Sibling(s) Family History Reviewed.: Yes Medication/Allergy Home Medications: Amlodipine Besylate [Norvasc 10 mg Tablet] 10 mg PO DAILY 08/16/18 Clonidine [Catapres-Tts 2 (0.2 mg/24 Hr) Transderm Ptch] 1 patch TOP DIALLO@1000 08/16/18 Dexlansoprazole [Dexilant 60 mg Capsule] 60 mg PO DAILY 08/16/18 Insulin Aspart [Novolog Flexpen] 0 unit SQ .SLIDING SCALE MDD 50 UNITS 08/16/18 Insulin Glargine,Hum.rec.anlog [Lantus Insulin 100 Unit/1 ml 10 ml] 50 unit SQ QAM MDD 50 UNITS 08/16/18 Lisinopril [Zestril] 20 mg PO DAILY 08/16/18 Metoprolol Tartrate [Lopressor 25 mg Tablet] 12.5 mg PO Q12 10/03/18 Ondansetron [Zofran Odt 4 mg Tablet] 4 mg PO Q4HP PRN #30 tab.rapdis 12/26/18 Oxycodone HCl/Acetaminophen [Percocet 5-325 mg Tablet] 1 tab PO Q4HP PRN #24 tablet 12/26/18 Promethazine HCl [Phenergan 25 mg Supp.rect] 1 supp MO Q6H #12 supp.rect 02/10/19 Cephalexin [Keflex] 500 mg PO BID #14 capsule 05/14/19 Ondansetron [Zofran Odt 4 mg Tablet] 1 - 2 tab PO Q4H PRN #30 tab.rapdis 05/14/19 Famotidine [Pepcid 20 mg Tablet] 20 mg PO BID #20 tablet 05/21/19 Promethazine HCl [Phenergan 25 mg Tablet] 25 mg PO Q6H PRN #15 tablet 05/21/19 Sucralfate [Carafate 1 gm Tablet] 1 gm PO QID #20 tablet 05/21/19 Phenobarbital [Phenobarbital 20 Mg/5 Ml Elixir Udcup] 20 mg PO BID PRN #120 udc 05/31/19 Sucralfate [Carafate 1 gm Tablet] 1 gm PO BID #60 tablet 05/31/19 Dicyclomine HCl [Bentyl 20 mg Tablet] 20 mg PO QID #40 tablet 06/14/19 Ondansetron [Zofran Odt 4 mg Tablet] 4 mg PO Q4HP PRN #30 tab.rapdis 06/14/19 Allergies/Adverse Reactions: metoclopramide HCl [From Reglan] Allergy (Unknown, Verified 05/21/19 02:12) Review of Systems Constitutional: ABSENT: chills, fever(s) Eyes: ABSENT: visual disturbances, other - Eye pain Ears: ABSENT: hearing changes, other - Ear pain Nose, Mouth, and Throat: ABSENT: headache(s), mouth pain, sore throat Cardiovascular: ABSENT: chest pain, palpitations Respiratory: ABSENT: cough, dyspnea Gastrointestinal: PRESENT: as per HPI, nausea, vomiting. ABSENT: abdominal pain, constipation, diarrhea Genitourinary: ABSENT: dysuria, hematuria Musculoskeletal: ABSENT: back pain, joint swelling, muscle weakness Integumentary: ABSENT: pruritus, rash Neurological: ABSENT: confusion, convulsions, focal weakness, memory loss, syncope Psychiatric: PRESENT: as per HPI, anxiety. ABSENT: depression Endocrine: ABSENT: cold intolerance, heat intolerance Hematologic/Lymphatic: ABSENT: easy bleeding, easy bruising Allergic/Immunologic: ABSENT: seasonal rhinorrhea Physical Exam Vital Signs: Temp Pulse Resp BP Pulse Ox 98.8 F 120 H 20 165/114 H 97 06/16/19 23:24 06/16/19 19:05 06/17/19 00:50 06/17/19 00:50 06/17/19 00:50 Intake & Output 06/15/19 06/16/19 06/17/19 23:59 23:59 23:59 Intake Total 1999 1000 Balance 1999 1000 Weight 72.575 kg General appearance: PRESENT: cooperative, mild distress Head exam: PRESENT: atraumatic, normocephalic Eye exam: PRESENT: conjunctiva pink. ABSENT: conjunctival injection, scleral icterus Ear exam: PRESENT: normal external ear exam. ABSENT: bleeding, drainage Mouth exam: PRESENT: dry mucosa, neck supple Neck exam: ABSENT: thyromegaly, tracheal deviation Respiratory exam: PRESENT: clear to auscultation bernardo, symmetrical, unlabored Cardiovascular exam: PRESENT: RRR, tachycardia. ABSENT: clicks, gallop, rubs Pulses: PRESENT: normal radial pulses, normal dorsalis pedis pul Vascular exam: PRESENT: normal capillary refill. ABSENT: pallor GI/Abdominal exam: PRESENT: normal bowel sounds, soft Rectal exam: PRESENT: deferred Extremities exam: ABSENT: joint swelling, pedal edema Musculoskeletal exam: ABSENT: deformity, dislocation Neurological exam: PRESENT: alert, oriented to person, oriented to place, oriented to time, oriented to situation, CN II-XII grossly intact. ABSENT: motor sensory deficit Psychiatric exam: PRESENT: anxious, other - Passive-aggressive Focused psych exam: PRESENT: psychomotor agitation, restlessness Skin exam: PRESENT: dry, intact, warm. ABSENT: jaundice, rash, urticaria Results Laboratory Results: 06/17/19 00:15 06/17/19 00:15 06/16/19 06/16/19 06/16/19 19:01 19:01 19:01 WBC 18.3 H RBC 5.05 Hgb 12.9 Hct 39.4 MCV 78 L MCH 25.5 L MCHC 32.7 RDW 17.4 H Plt Count 446 Seg Neutrophils % 85.6 H VBG pH VBG pCO2 VBG HCO3 VBG Base Excess Sodium 131.8 L Potassium 4.6 Chloride 93 L Carbon Dioxide 19 L Anion Gap 20 H BUN 15 Creatinine 1.04 Est GFR ( Amer) > 60 Glucose 338 H Calcium 10.5 H Magnesium 1.4 L Total Bilirubin 0.9 AST 38 H Alkaline Phosphatase 125 Total Protein 8.4 H Albumin 4.7 Urine Color STRAW Urine Appearance CLEAR Urine pH 6.0 Ur Specific [place] 1.029 Urine Protein 30 H Urine Glucose (UA) >=500 H Urine Ketones 20 H Urine Blood NEGATIVE 06/16/19 06/17/19 06/17/19 19:01 00:15 00:15 WBC 17.5 H RBC 4.93 Hgb 12.7 Hct 38.3 MCV 78 L MCH 25.8 L MCHC 33.2 RDW 17.4 H Plt Count 381 Seg Neutrophils % 79.6 H VBG pH 7.49 H VBG pCO2 29.6 L VBG HCO3 22.2 VBG Base Excess -0.1 Sodium 133.6 L Potassium 4.1 Chloride 100 Carbon Dioxide 20 L Anion Gap 14 BUN 13 Creatinine 0.86 Est GFR ( Amer) > 60 Glucose 278 H Calcium 9.9 Magnesium Total Bilirubin AST Alkaline Phosphatase Total Protein Albumin Urine Color Urine Appearance Urine pH Ur Specific [place] Urine Protein Urine Glucose (UA) Urine Ketones Urine Blood 06/16/19 06/17/19 19:01 00:15 Troponin I 0.028 0.021 Impressions: Head CT 06/16/19 22:01 IMPRESSION: No acute intracranial abnormality is identified. Acute Abdomen Series 06/17/19 02:21 IMPRESSION: No bowel obstruction. Assessment and Plan - Diagnosis (1) Uncontrolled hypertension Is this a current diagnosis for this admission?: Yes (2) Tachycardia Is this a current diagnosis for this admission?: Yes (3) Generalized anxiety disorder Is this a current diagnosis for this admission?: Yes (4) Occult blood positive stool Is this a current diagnosis for this admission?: Yes (5) Bipolar disorder Qualifiers: Active/Remission status: remission status unspecified Qualified Code(s): F31.9 - Bipolar disorder, unspecified Is this a current diagnosis for this admission?: Yes (6) Diabetes mellitus type 2 in obese Is this a current diagnosis for this admission?: Yes (7) Gastroparesis due to DM Is this a current diagnosis for this admission?: Yes (8) Hyperlipidemia Qualifiers: Hyperlipidemia type: unspecified Qualified Code(s): E78.5 - Hyperlipidemia, unspecified Is this a current diagnosis for this admission?: Yes (9) Obesity (BMI 30.0-34.9) Is this a current diagnosis for this admission?: Yes - Plan Summary Summary: Patient will be admitted to the medical floor in a telemetry bed where she will receive routine supportive and symptomatic cares. She will be treated with IV Thorazine 25 mg IV every 4 hours for agitation and restlessness. She will be treated with IV Valium 10 mg every 4 hours as needed for anxiety. A gastroenterology consultation with Dr. Rogers and a psychology consultation with Oseas Downs will be obtained. Patient will be treated aggressively to resolve her hypertension with both oral therapy utilizing metoprolol and IV therapy utilizing hydralazine. Patient will be continued on her usual diabetic and cardiac diet as well as her regular home medications as appropriate. Before meals and at bedtime Accu-Cheks will be obtained and sliding scale insulin be used for hyperglycemia with a hypoglycemic protocol in place. Laboratory evaluations including a CBC, metabolic profiles and magnesium levels will be obtained as needed. - Time Time Spent with patient: 15-24 minutes Medications reviewed and adjusted accordingly: Yes Anticipated discharge: Home - Inpatient Certification Based on my medical assessment, after consideration of the patient's comorbidities, presenting symptoms, or acuity I expect that the services needed warrant INPATIENT care.: Yes I certify that my determination is in accordance with my understanding of [facility]'s requirements for reasonable and necessary INPATIENT services [42 CFR 412.3e].: Yes Medical Necessity: Significant Comorbidiites Make Outpatient Treatment Too Risky, Need Close Monitoring Due to Risk of Patient Decompensation, Need For Continuous Telemetry Monitoring, Risk of Complication if Not Cared For in Hospital
--- NOTE | 2019-06-17 06:53 | Progress Note ---
Provider Note Provider Note: patient had previously been discharged from my service and has been for several years. please call alternative providers to render care thanks
--- NOTE | 2019-06-17 07:22 | EKG REPORT ---
SEVERITY:- ABNORMAL ECG - SINUS TACHYCARDIA BIATRIAL ABNORMALITIES BORDERLINE RIGHT AXIS DEVIATION BORDERLINE T ABNORMALITIES, INFERIOR LEADS : Confirmed by: Eduardo Novak MD 17-Jun-2019 07:22:04
--- NOTE | 2019-06-17 07:23 | EKG REPORT ---
SEVERITY:- ABNORMAL ECG - SINUS TACHYCARDIA WITH IRREGULAR RATE [id number] LEFT ATRIAL ABNORMALITY BORDERLINE RIGHT AXIS DEVIATION ABNORMAL T, CONSIDER ISCHEMIA, INFERIOR LEADS : Confirmed by: Eduardo Novak MD 17-Jun-2019 07:22:39
--- NOTE | 2019-06-17 07:25 | EKG REPORT ---
SEVERITY:- ABNORMAL ECG - PAROXYSMAL ATRIAL TACHYCARDIA TERMINATED VENTRICULAR PREMATURE COMPLEX ABERRANT COMPLEX, POSSIBLY SUPRAVENTRICULAR PROBABLE ANTEROSEPTAL INFARCT, OLD ABNORMAL T, CONSIDER ISCHEMIA, INFERIOR LEADS LATERAL LEADS ARE ALSO INVOLVED : Confirmed by: Eduardo Novak MD 17-Jun-2019 07:25:06
--- NOTE | 2019-06-17 07:26 | EKG REPORT ---
SEVERITY:- ABNORMAL ECG - FAST SINUS ARRHYTHMIA, RATE [id number] CONSIDER ANTEROSEPTAL INFARCT NONSPECIFIC T ABNORMALITIES, INFERIOR LEADS : Confirmed by: Eduardo Novak MD 17-Jun-2019 07:25:31
--- NOTE | 2019-06-17 07:32 | EKG REPORT ---
SEVERITY:- ABNORMAL ECG - ATRIAL TACHYCARDIA TERMINATED, FOLOWED BY BRIEF THIRD DEGREE AVB, THEN ASYSTOLE X 3 SECS, THEN SINUS BRADYCARDIA . PREMATURE COMPLEXES, VENT FIRST DEGREE AV BLOCK BORDERLINE RIGHT AXIS DEVIATION : Confirmed by: Eduardo Novak MD 17-Jun-2019 07:32:33
--- NOTE | 2019-06-17 07:34 | EKG REPORT ---
SEVERITY:- ABNORMAL ECG - SINUS TACHYCARDIA WITH IRREGULAR RATE 93-144 ABNORMAL T, CONSIDER ISCHEMIA, INFERIOR LEADS : Confirmed by: Eduardo Novak MD 17-Jun-2019 07:34:12
--- NOTE | 2019-06-17 07:36 | EKG REPORT ---
SEVERITY:- ABNORMAL ECG - SINUS TACHYCARDIA ABNRM R PROG, CONSIDER ASMI OR LEAD PLACEMENT BIATRIAL ENLARGEMENT : Confirmed by: Eduardo Novak MD 17-Jun-2019 07:35:24
[2019-06-17] MEDS: INSULIN REG, HUMAN 100 UNIT/ML 3 ML VIAL (PYX) SUBCUT SCH ×4 (09:02→21:27)
[2019-06-17] MEDS: METOPROLOL SUCCINATE 25 MG TAB.SR.24H PO SCH ×2 (09:39→22:55)
[2019-06-17] MEDS ORDERED: METOPROLOL TARTRATE PF/INJ 5 MG/5 ML SDV IV ONE ×3 (09:45→17:30)
[2019-06-17] MEDS: DOCUSATE SODIUM 100 MG CAPSULE PO SCH ×2 (09:47→17:51)
[2019-06-17] MEDS: HUM INSULIN NPH/REG INSULIN HM 100 UNIT/1 ML 3 ML SUBCUT SCH (09:47)
[2019-06-17] MEDS ORDERED: METOPROLOL SUCCINATE 50 MG TAB.SR.24H PO SCH (10:00)
[2019-06-17] MEDS ORDERED: LISINOPRIL 10 MG TABLET PO SCH (10:00)
[2019-06-17] MEDS ORDERED: NITROGLYCERIN 0.4 MG/TAB 25 TAB/BOTTLE ONE (12:18)
[2019-06-17] MEDS ORDERED: ASPIRIN 325 MG TABLET, ENT COATED PO ONE (12:18)
--- NOTE | 2019-06-17 13:19 | EKG REPORT ---
SEVERITY:- BORDERLINE ECG - SINUS TACHYCARDIA BORDERLINE T ABNORMALITIES, INFERIOR LEADS : Confirmed by: Eduardo Novak MD 17-Jun-2019 13:19:21
[2019-06-17 14:33] LABS: CREATINE KINASE MB 3.21 ng/mL (<4.55)
[2019-06-17 14:50] LABS: TROPONIN I 0.155 ng/mL
--- NOTE | 2019-06-17 15:29 | Progress Note ---
Provider Note Provider Note: 06/17/2019 Patient seen briefly as she was admitted after midnight through the emergency room. Pressure when patient was elevated was triple digits 218/139, multiple occasions. Subsequently blood pressures have come down into the 130s over 80 range Straight on admission was 144 since then it is come down into the mid to low 130s. Patient was given Thorazine IV and Valium IV approximately 0 500 this morning and has been sleeping then. Around noon the patient complained of chest pain and was given 2 nitro with good relief of the pain. Her initial troponin in the emergency room was 0.028 it then dropped down to 0.021 however following the chest pain today at noon it elevated to 0.155. CK- MB index was normal at 3.21 In reviewing previous ER visits and admissions patient has seem to always be tachycardic and even had elevated troponins in the past. I have been reluctant to treat her tachycardia aggressively as patient was not symptomatic, and multiple doses of Lopressor and adenosine not been successful indicating to me that this is not cardiac driven. Because of the elevation of the troponin however have consulted cardiology to see the patient, Dr. Guajardo, has agreed to see the patient
--- NOTE | 2019-06-17 17:00 | PSYCHOLOGICAL NOTE ---
Psych Note - Psych Note Date seen by psych provider: 06/17/19 Time seen by psych provider: 15:15 Psych Note: Clinician was advised by nurse that patient was administered sedative type medications. Clinician attempted to arouse patient, however patient would mumble but not open her eyes. Clinician plans to reattempt tomorrow.
[2019-06-17] MEDS ORDERED: ASPIRIN 325 MG TABLET PO ONE (17:45)
[2019-06-17] MEDS ORDERED: MAG HYDROX/AL HYDROX/SIMETH SUSP 30 ML UDCUP PO ONE (18:00)
[2019-06-17] MEDS ORDERED: LIDOCAINE 2% VISCOUS SOLN 15 ML UDCUP PO ONE (18:00)
--- NOTE | 2019-06-17 18:34 | PDOC CONSULTATION ---
Consultation-Blank Consultation: CARDIOLOGY consultation by Dr. Buffy Guajardo on 06/17/2019. Patient seen at 4 PM. 60 minutes spent as patient more than 50% of time spent in direct patient care. REASON FOR CONSULTATION: Patient with chest tightness uncontrolled hypertension, severe tachycardia and with now elevated troponin I. CONSULT REQUESTING PROVIDER: Mr. Delfino Rodríguez PA-C, [facility] physician hospitalist group. HISTORY OF PRESENT ILLNESS: Patient with a history of hypertension and bipolar disorder and diabetes mellitus came to the emergency room with intractable anxiety. She was also found to have vomiting. And was severely anxious. She was also found to be tachycardic with a heart rate in the 150s most likely sinus tachycardia,, but with a short DE cannot entirely exclude an SVT. The patient was given adenosine which did slow down the patient transiently to sinus bradycardia and atrial flutter was ruled out. The patient initially her blood pressure was very high and she has been stating that when her blood pressure is high she has generalized chest tightness. At present the patient is slightly drowsy having received Thorazine and other sedatives for anxiety. But she is more awake and able to answer some questions. At present she has no chest pain. She complains of epigastric pain but on palpation the abdomen is very soft and there is no guarding rigidity and no reproduction of the patient is abdominal discomfort, and the patient does not change her grimace when the epigastrium is pushed upon. She also has occult positive stools. But her hemoglobin is stable. At present she is in sinus tachycardia with a heart rate like in the 130s to 140s. She does complain of palpitations. At present no chest pain or discomfort. She denies shortness of breath. There is no PND orthopnea. The patient's initial troponin I which was negative is now trending up to 0.155. There are no acute EKG changes. The patient denies past history of coronary artery disease or PR. She denies any shortness of breath or syncope. Past Medical History Cardiac Medical History: Reports: Hyperlipidema, Hypertension Denies: Atrial Fibrillation, Coronary Artery Disease, DVT, Pulmonary Embolism. Denies history of congestive heart failure or PR there is no prior history of arrhythmias. Pulmonary Medical History: Denies: Asthma, Chronic Obstructive Pulmonary Disease (COPD) EENT Medical History: Reports: Ears - Hearing aids Denies: Cataracts Neurological Medical History: Denies: Hemorrhagic CVA, Ischemic CVA, Seizures Endocrine Medical History: Reports: Diabetes Mellitus Type 2 Denies: Diabetes Mellitus Type 1, Hyperthyroidism, Hypothyroidism, Obesity Renal/ Medical History: Denies: Chronic Kidney Disease, Nephrolithiasis Malignancy Medical History: Reports: None GI Medical History: Reports: Gastroesophageal Reflux Disease, Hiatal Hernia, Other - Diabetic gastroparesis with cyclic vomiting Denies: Cirrhosis, Crohn's Disease, Hepatitis, Peptic Ulcer Disease, Ulcerative Colitis Musculoskeltal Medical History: Reports: Arthritis Denies: Gout Skin Medical History: Reports: Eczema Denies: Psoriasis Psychiatric Medical History: Reports: Bipolar Disorder, Depression, General Anxiety Disorder Denies: Alcohol Dependency, Substance Abuse, Tobacco Dependency Traumatic Medical History: Reports: None Hematology: Reports: Anemia Denies: Bleeding Tendencies Infectious Medical History: Reports: Methicillin-Resistant Staph Aureus Past Surgical History Past Surgical History: Reports: Cholecystectomy Social History Information Source: Patient Lives with: Family Smoking Status: Never Smoker Electronic Cigarette use?: No Frequency of Alcohol Use: None Hx Recreational Drug Use: No Drugs: None Hx Prescription Drug Abuse: No - Advance Directive Resuscitation Status: Full Code Surrogate healthcare decision maker:: Annie Murphy Family History Family History: DM, Hypertension. denies: CAD, Malignancy Parental Family History Reviewed: Yes Children Family History Reviewed: No Sibling(s) Family History Reviewed.: Yes Medication/Allergy Home Medications: Amlodipine Besylate [Norvasc 10 mg Tablet] 10 mg PO DAILY 08/16/18 Clonidine [Catapres-Tts 2 (0.2 mg/24 Hr) Transderm Ptch] 1 patch TOP DIALLO@1000 08/16/18 Dexlansoprazole [Dexilant 60 mg Capsule] 60 mg PO DAILY 08/16/18 Insulin Aspart [Novolog Flexpen] 0 unit SQ .SLIDING SCALE MDD 50 UNITS 08/16/18 Insulin Glargine,Hum.rec.anlog [Lantus Insulin 100 Unit/1 ml 10 ml] 50 unit SQ QAM MDD 50 UNITS 08/16/18 Lisinopril [Zestril] 20 mg PO DAILY 08/16/18 Metoprolol Tartrate [Lopressor 25 mg Tablet] 12.5 mg PO Q12 10/03/18 Ondansetron [Zofran Odt 4 mg Tablet] 4 mg PO Q4HP PRN #30 tab.rapdis 12/26/18 Oxycodone HCl/Acetaminophen [Percocet 5-325 mg Tablet] 1 tab PO Q4HP PRN #24 tablet 12/26/18 Promethazine HCl [Phenergan 25 mg Supp.rect] 1 supp DE Q6H #12 supp.rect 02/10/19 Cephalexin [Keflex] 500 mg PO BID #14 capsule 05/14/19 Ondansetron [Zofran Odt 4 mg Tablet] 1 - 2 tab PO Q4H PRN #30 tab.rapdis 05/14/19 Famotidine [Pepcid 20 mg Tablet] 20 mg PO BID #20 tablet 05/21/19 Promethazine HCl [Phenergan 25 mg Tablet] 25 mg PO Q6H PRN #15 tablet 05/21/19 Sucralfate [Carafate 1 gm Tablet] 1 gm PO QID #20 tablet 05/21/19 Phenobarbital [Phenobarbital 20 Mg/5 Ml Elixir Udcup] 20 mg PO BID PRN #120 udc 05/31/19 Sucralfate [Carafate 1 gm Tablet] 1 gm PO BID #60 tablet 05/31/19 Dicyclomine HCl [Bentyl 20 mg Tablet] 20 mg PO QID #40 tablet 06/14/19 Ondansetron [Zofran Odt 4 mg Tablet] 4 mg PO Q4HP PRN #30 tab.rapdis 06/14/19 Allergies/Adverse Reactions: metoclopramide HCl [From Reglan] Allergy (Unknown, Verified 05/21/19 02:12) Review of Systems Constitutional: ABSENT: chills, fever(s) Eyes: ABSENT: visual disturbances, other - Eye pain Ears: ABSENT: hearing changes, other - Ear pain Nose, Mouth, and Throat: ABSENT: headache(s), mouth pain, sore throat Cardiovascular: ABSENT: chest pain, palpitations Respiratory: ABSENT: cough, dyspnea Gastrointestinal: PRESENT: as per HPI, nausea, vomiting. ABSENT: abdominal pain, constipation, diarrhea Genitourinary: ABSENT: dysuria, hematuria Musculoskeletal: ABSENT: back pain, joint swelling, muscle weakness Integumentary: ABSENT: pruritus, rash Neurological: ABSENT: confusion, convulsions, focal weakness, memory loss, syncope Psychiatric: PRESENT: as per HPI, anxiety. ABSENT: depression Endocrine: ABSENT: cold intolerance, heat intolerance Hematologic/Lymphatic: ABSENT: easy bleeding, easy bruising Allergic/Immunologic: ABSENT: seasonal rhinorrhea Current Medications Acetaminophen (Tylenol 325 Mg Tablet) 650 mg PO Q4HP PRN PRN Reason: For headache, pain or fever Stop: 07/17/19 04:02 Last Admin: 06/17/19 18:04 Dose: 650 mg Documented by: Acetaminophen (Tylenol 650 Mg Supp) 650 mg DE Q4HP PRN PRN Reason: For headache, pain or fever Stop: 07/17/19 04:02 Al Hydrox/Mg Hydrox/Simethicone (Maalox Plus Susp 30 Udcup) 30 ml PO Q6HP PRN PRN Reason: HEARTBURN Stop: 07/17/19 03:55 Amlodipine Besylate (Norvasc 10 Mg Tablet) 10 mg PO QHS SHA Stop: 07/17/19 21:59 Dextrose (Dextrose Inj 50% Syringe (25 Gm/50 Ml)) 12.5 gm IV PRN PRN; Protocol PRN Reason: FOR BG 50-69 IN ALERT PATIENT Stop: 07/17/19 04:05 Dextrose (Dextrose Inj 50% Syringe (25 Gm/50 Ml)) 25 gm IV PRN PRN; Protocol PRN Reason: PER PROTOCOL Stop: 07/17/19 04:05 Docusate Sodium (Colace 100 Mg Capsule) 100 mg PO BID [facility] Stop: 07/17/19 09:59 Last Admin: 06/17/19 17:51 Dose: Not Given Documented by: Glucagon (Glucagen Inj 1 Mg Vial) 1 mg IM PRN PRN; Protocol PRN Reason: Evaluate for BG < 70 Stop: 07/17/19 [id number] Glucose (Glutose 40% Gel 15 Gm Tube) 15 gm PO PRN PRN; Protocol PRN Reason: FOR BG 50-69 IN ALERT PATIENT Stop: 07/17/19 04:05 Glucose (Glutose 40% Gel 15 Gm Tube) 30 gm PO PRN PRN; Protocol PRN Reason: FOR BG < 50 IN ALERT PATIENT Stop: 07/17/19 04:05 Hydralazine HCl (Apresoline Inj/Pf 20 Mg/1 Ml Sdv) 20 mg IV Q4HP PRN PRN Reason: Give For Sbp > 160 / Dbp > 100 Stop: 07/17/19 04:02 Last Admin: 06/17/19 05:03 Dose: 20 mg Documented by: Insulin Human Isoph/Insulin Regular (Insulin Inj 70-30 (100 Unit/1 Ml) 3 Ml Vial) 50 unit SUBCUT ACBRKFST [facility] Stop: 07/17/19 07:59 Last Admin: 06/17/19 09:47 Dose: 50 unit Documented by: Insulin Human Regular (Humulin R (Pyxis) Insulin 100 Unit/Ml 3ml) 0 - 15 unit SUBCUT ACHS [facility]; Protocol Stop: 07/17/19 07:59 Last Admin: 06/17/19 17:51 Dose: Not Given Documented by: Lisinopril (Prinivil 10 Mg Tablet) 20 mg PO DAILY [facility] Stop: 07/17/19 09:59 Last Admin: 06/17/19 09:57 Dose: Not Given Documented by: Magnesium Hydroxide (Milk Of Magnesia 30 Ml Udcup) 30 ml PO HSP PRN PRN Reason: FOR CONSTIPATION Stop: 07/17/19 03:55 Metoprolol Succinate (Toprol Xl 25 Mg Tab.Sr) 25 mg PO Q12 [facility] Stop: 07/17/19 09:59 Last Admin: 06/17/19 09:39 Dose: Not Given Documented by: Nalbuphine HCl (Nubain Inj 10 Mg/1 Ml Ampule) 10 mg IV Q3HP PRN PRN Reason: FOR PAIN Stop: 06/24/19 04:02 Nitroglycerin (Nitrostat 0.4 Mg (1/150 Gr) Tabs 25/Bottle) 1 tab SL Q5MP PRN PRN Reason: CHEST PAIN Stop: 07/17/19 17:30 Pantoprazole Sodium (Protonix [address] Tablet) 40 mg PO BID@0600,1700 [facility] Stop: 07/17/19 05:59 Last Admin: 06/17/19 17:48 Dose: 40 mg Documented by: Promethazine HCl (Phenergan Inj 25 Mg/1 Ml Vial) 25 mg IV Q4HP PRN PRN Reason: FOR NAUSEA/VOMITING Stop: 07/17/19 03:55 Sodium Chloride (Saline Flush 2.5 Ml Monoject Prefil Syrin) 2.5 ml IV Q8 [facility] Stop: 07/17/19 05:59 Last Admin: 06/17/19 14:28 Dose: Not Given Documented by: Discontinued Medications Adenosine (Adenocard Inj/Pf 6 Mg/2 Ml Sdv) 6 mg IV NOW ONE Stop: 06/16/19 20:27 Last Admin: 06/16/19 21:36 Dose: 6 mg Documented by: Adenosine (Adenocard Inj/Pf 6 Mg/2 Ml Sdv) Confirm Administered Dose 6 mg IV .STK-MED ONE Stop: 06/16/19 20:50 Last Admin: 06/16/19 22:39 Dose: Not Given Documented by: Adenosine (Adenocard Inj/Pf 6 Mg/2 Ml Sdv) Confirm Administered Dose 6 mg IV .STK-MED ONE Stop: 06/16/19 21:04 Last Admin: 06/16/19 22:39 Dose: Not Given Documented by: Adenosine (Adenocard Inj/Pf 6 Mg/2 Ml Sdv) 12 mg IV NOW ONE Stop: 06/16/19 22:01 Last Admin: 06/16/19 22:09 Dose: 12 mg Documented by: Adenosine (Adenocard Inj/Pf 6 Mg/2 Ml Sdv) 12 mg IV NOW ONE Stop: 06/16/19 22:13 Last Admin: 06/16/19 22:38 Dose: 12 mg Documented by: Al Hydrox/Mg Hydrox/Simethicone (Maalox Plus Susp 30 Udcup) 30 ml PO NOW ONE Stop: 06/17/19 18:01 Last Admin: 06/17/19 17:48 Dose: 30 ml Documented by: Aspirin (Ecotrin 325 Mg Ec Tablet) Confirm Administered Dose 325 mg PO .STK-MED ONE Stop: 06/17/19 12:19 Last Admin: 06/17/19 12:57 Dose: 325 mg Documented by: Aspirin (Aspirin 325 Mg Tablet) 325 mg PO NOW ONE Stop: 06/17/19 17:46 Last Admin: 06/17/19 17:48 Dose: Not Given Documented by: Chlorpromazine HCl (Thorazine Inj 25 Mg/1 Ml Ampule) 25 mg IV Q4HP PRN PRN Reason: RESTLESSNESS/AGITATION Stop: 07/17/19 04:02 Last Admin: 06/17/19 06:34 Dose: 25 mg Documented by: Diazepam (Valium Inj 10 Mg/2 Ml Disp.Syrin) 10 mg IV Q4HP PRN PRN Reason: ANXIETY Stop: 06/24/19 04:02 Last Admin: 06/17/19 05:02 Dose: 10 mg Documented by: Famotidine (Pepcid Inj/Pf 20 Mg/2 Ml Sdv) 20 mg IV NOW ONE Stop: 06/16/19 23:13 Last Admin: 06/16/19 23:20 Dose: 20 mg Documented by: Sodium Chloride (Nacl 0.9% 1000 Ml Iv Soln) 1,000 mls @ 0 mls/hr IV X 2 BAGS PRN PRN Reason: THIS MED IS NOT "PRN" Last Infusion: 06/16/19 21:25 Dose: Infused Documented by: Sodium Chloride (Nacl 0.9% 1000 Ml Iv Soln) 1,000 mls @ 0 mls/hr IV BOLUS ONE Stop: 06/16/19 21:18 Last Infusion: 06/17/19 00:56 Dose: Infused Documented by: Ketorolac Tromethamine (Toradol Inj/Pf 30 Mg/1 Ml Sdv) 15 mg IV NOW ONE Stop: 06/16/19 23:09 Last Admin: 06/16/19 23:14 Dose: 15 mg Documented by: Lidocaine HCl (Xylocaine 2% Viscous Soln 15 Ml Udcup) 15 ml PO NOW ONE Stop: 06/17/19 18:01 Last Admin: 06/17/19 17:48 Dose: 15 ml Documented by: Lorazepam (Ativan Inj 2 Mg/1 Ml Vial) 1 mg IV NOW ONE Stop: 06/16/19 18:59 Last Admin: 06/16/19 19:12 Dose: 1 mg Documented by: Metoprolol Tartrate (Lopressor Inj/Pf 5 Mg/5 Ml Sdv) 15 mg IV NOW ONE Stop: 06/16/19 21:09 Last Admin: 06/16/19 21:14 Dose: 15 mg Documented by: Metoprolol Tartrate (Lopressor Inj/Pf 5 Mg/5 Ml Sdv) Confirm Administered Dose 5 mg IV .STK-MED ONE Stop: 06/16/19 21:17 Last Admin: 06/16/19 22:39 Dose: Not Given Documented by: Metoprolol Tartrate (Lopressor Inj/Pf 5 Mg/5 Ml Sdv) Confirm Administered Dose 5 mg IV .STK-MED ONE Stop: 06/16/19 21:19 Last Admin: 06/16/19 22:38 Dose: Not Given Documented by: Metoprolol Tartrate (Lopressor Inj/Pf 5 Mg/5 Ml Sdv) 15 mg IV NOW ONE Stop: 06/16/19 22:01 Last Admin: 06/16/19 22:38 Dose: Not Given Documented by: Metoprolol Tartrate (Lopressor Inj/Pf 5 Mg/5 Ml Sdv) 15 mg IV NOW ONE Stop: 06/17/19 09:46 Last Admin: 06/17/19 09:53 Dose: Not Given Documented by: Metoprolol Tartrate (Lopressor Inj/Pf 5 Mg/5 Ml Sdv) Confirm Administered Dose 5 mg IV .STK-MED ONE Stop: 06/17/19 17:06 Last Admin: 06/17/19 17:09 Dose: 2.5 mg Documented by: Nitroglycerin (Nitrostat 0.4 Mg (1/150 Gr) Tabs 25/Bottle) Confirm Administered Dose 25 tab .ROUTE .STK-MED ONE Stop: 06/17/19 12:19 Last Admin: 06/17/19 12:50 Dose: 2 tab Documented by: PHYSICAL EXAMINATION: The patient mildly overweight. In no acute distress at present but appears to be slightly drowsy and very withdrawn. Selected Entries 06/16/19 06/16/19 06/16/19 19:05 19:40 19:42 Temperature 98.2 F Temperature Oral Source Pulse Rate Pulse Rate [ 120 H Left Radial] Heart Rate ( 150 150 Monitors) Respiratory 28 H 24 H Rate Blood Pressure 180/100 H 200/110 H Blood Pressure 190/100 H [Left Upper Arm ] Blood Pressure 126 140 Mean Blood Pressure 130 Mean [Left Upper Arm] Blood Pressure Sitting Position [Left Upper Arm] BP Location BP Position O2 Sat by Pulse 100 97 Oximetry Oxygen Delivery Room Air Method ( includes room air) Oxygen Flow Rate Oxygen Delivery Method 06/16/19 06/17/19 20:01 14:54 Temperature 98.6 F Temperature Source Pulse Rate 129 H Pulse Rate [ Left Radial] Heart Rate ( 151 Monitors) Respiratory 15 Rate Blood Pressure 211/119 H 108/65 Blood Pressure [Left Upper Arm ] Blood Pressure 149 79 Mean Blood Pressure Mean [Left Upper Arm] Blood Pressure Position [Left Upper Arm] BP Location Right Arm BP Position Supine O2 Sat by Pulse 100 Oximetry Oxygen Delivery Method ( includes room air) Oxygen Flow 2.00 Rate Oxygen Delivery Nasal Cannula Method HEAD: Is atraumatic normocephalic. EYES: Pupils are equal round regular reactive to light and accommodation. Extraocular movements are normal. There is no conjunctival pallor. There is no scleral icterus. EARS: Tympanic membranes are intact. External auditory canals are clear. NOSE: There is no deviated nasal septum. There is no inflammation nasal mucous membrane. MOUTH: Mucous membranes of the mouth are moist. Tongue is moist. There is no ulcers. There is no bleeding from the gums. THROAT: There is no redness of the oropharynx. There is no exudates. SKIN: There is no skin lesion rashes. There is no petechia or ecchymosis. NECK: Is supple. There is no JVD. Carotids are equal there is no bruit there is no lymphadenopathy. There is no goiter. There is no accessory muscle respiration use. Trachea central. LUNGS: Is clear to auscultation percussion without any rhonchi rales or wheezing. On palpation there is no chest wall tenderness. HEART: S1-S2 is heard. There is no S3 gallop. There is no S4 gallop. There is no S3 gallop. There is systolic murmur in the left sternal border and the apex. There is no rub. ABDOMEN: Soft nontender there is no paraspinal megaly. In spite of the patient complains of epigastric pain palpation reveals no reproducible symptoms and the patient remains without any response to deep palpation. There is no rebound guarding or rigidity. Bowel sounds are well heard. EXTREMITIES: Femorals are well felt. There is no femoral bruits. Leg pulses well felt. There is no DVT or cellulitis. There is no pedal edema. There is no calf tenderness. There is no cyanosis or clubbing. 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 PSYCHIATRIC: The patient does appear to be withdrawn. Unable to make further psych exam. Labs- Entire Visit 06/16/19 06/16/19 06/16/19 19:01 19:01 19:01 WBC 18.3 H RBC 5.05 Hgb 12.9 Hct 39.4 MCV 78 L MCH 25.5 L MCHC 32.7 RDW 17.4 H Plt Count 446 Lymph % (Auto) 8.1 L [place] % (Auto) 5.9 Eos % (Auto) 0.0 Baso % (Auto) 0.4 Absolute Neuts (auto) 15.7 H Absolute Lymphs (auto) 1.5 Absolute Monos (auto) 1.1 Absolute Eos (auto) 0.0 Absolute Basos (auto) 0.1 Seg Neutrophils % 85.6 H VBG pH VBG pCO2 VBG HCO3 VBG Base Excess Sodium 131.8 L Potassium 4.6 Chloride 93 L Carbon Dioxide 19 L Anion Gap 20 H BUN 15 Creatinine 1.04 Est GFR ( Amer) > 60 Est GFR (MDRD) Non-Af 58 L Glucose 338 H POC Glucose Calcium 10.5 H Magnesium 1.4 L Total Bilirubin 0.9 Direct Bilirubin 0.3 Neonat Total Bilirubin Not Reportable Neonat Direct Bilirubin Not Reportable Neonat Indirect Bili Not Reportable AST 38 H ALT 26 Alkaline Phosphatase 125 Creatine Kinase CK-MB (CK-2) Troponin I 0.028 Total Protein 8.4 H Albumin 4.7 TSH Free T4 Free T3 pg/mL Urine Color Urine Appearance Urine pH Ur Specific [place] Urine Protein Urine Glucose (UA) Urine Ketones Urine Blood Urine Nitrite (Reflex) Urine Bilirubin Urine Urobilinogen Leukocyte Esterase Rfl Urine WBC (Reflex) Squamous Epi Cells Auto Urine Mucus (Auto) Urine Ascorbic Acid Urine HCG, Qual POC Stool Occult Blood Salicylates < 1.0 L Urine Opiates Screen Urine Methadone Screen Acetaminophen < 10 L Ur Barbiturates Screen Ur Phencyclidine Scrn Ur Amphetamines Screen U Benzodiazepines Scrn Urine Cocaine Screen U Marijuana (THC) Screen Serum Alcohol < 10 06/16/19 06/16/19 06/16/19 19:01 19:01 19:01 WBC RBC Hgb Hct MCV MCH MCHC RDW Plt Count Lymph % (Auto) [place] % (Auto) Eos % (Auto) Baso % (Auto) Absolute Neuts (auto) Absolute Lymphs (auto) Absolute Monos (auto) Absolute Eos (auto) Absolute Basos (auto) Seg Neutrophils % VBG pH 7.49 H VBG pCO2 29.6 L VBG HCO3 22.2 VBG Base Excess -0.1 Sodium Potassium Chloride Carbon Dioxide Anion Gap BUN Creatinine Est GFR ( Amer) Est GFR (MDRD) Non-Af Glucose POC Glucose Calcium Magnesium Total Bilirubin Direct Bilirubin Neonat Total Bilirubin Neonat Direct Bilirubin Neonat Indirect Bili AST ALT Alkaline Phosphatase Creatine Kinase CK-MB (CK-2) Troponin I Total Protein Albumin TSH Free T4 Free T3 pg/mL Urine Color STRAW Urine Appearance CLEAR Urine pH 6.0 Ur Specific [place] 1.029 Urine Protein 30 H Urine Glucose (UA) >=500 H Urine Ketones 20 H Urine Blood NEGATIVE Urine Nitrite (Reflex) NEGATIVE Urine Bilirubin NEGATIVE Urine Urobilinogen NEGATIVE Leukocyte Esterase Rfl NEGATIVE Urine WBC (Reflex) 1 Squamous Epi Cells Auto 1 Urine Mucus (Auto) RARE Urine Ascorbic Acid NEGATIVE Urine HCG, Qual NEGATIVE POC Stool Occult Blood Salicylates Urine Opiates Screen NEGATIVE Urine Methadone Screen NEGATIVE Acetaminophen Ur Barbiturates Screen NEGATIVE Ur Phencyclidine Scrn NEGATIVE Ur Amphetamines Screen NEGATIVE U Benzodiazepines Scrn UNCONFIRMED POSITIVE Urine Cocaine Screen NEGATIVE U Marijuana (THC) Screen NEGATIVE Serum Alcohol 06/16/19 06/16/19 06/16/19 19:34 22:04 23:50 WBC RBC Hgb Hct MCV MCH MCHC RDW Plt Count Lymph % (Auto) [place] % (Auto) Eos % (Auto) Baso % (Auto) Absolute Neuts (auto) Absolute Lymphs (auto) Absolute Monos (auto) Absolute Eos (auto) Absolute Basos (auto) Seg Neutrophils % VBG pH VBG pCO2 VBG HCO3 VBG Base Excess Sodium Potassium Chloride Carbon Dioxide Anion Gap BUN Creatinine Est GFR ( Amer) Est GFR (MDRD) Non-Af Glucose POC Glucose 304 H 285 H Calcium Magnesium Total Bilirubin Direct Bilirubin Neonat Total Bilirubin Neonat Direct Bilirubin Neonat Indirect Bili AST ALT Alkaline Phosphatase Creatine Kinase CK-MB (CK-2) Troponin I Total Protein Albumin TSH Free T4 Free T3 pg/mL Urine Color Urine Appearance Urine pH Ur Specific [place] Urine Protein Urine Glucose (UA) Urine Ketones Urine Blood Urine Nitrite (Reflex) Urine Bilirubin Urine Urobilinogen Leukocyte Esterase Rfl Urine WBC (Reflex) Squamous Epi Cells Auto Urine Mucus (Auto) Urine Ascorbic Acid Urine HCG, Qual POC Stool Occult Blood POSITIVE Salicylates Urine Opiates Screen Urine Methadone Screen Acetaminophen Ur Barbiturates Screen Ur Phencyclidine Scrn Ur Amphetamines Screen U Benzodiazepines Scrn Urine Cocaine Screen U Marijuana (THC) Screen Serum Alcohol 06/17/19 06/17/19 06/17/19 00:15 00:15 00:15 WBC 17.5 H RBC 4.93 Hgb 12.7 Hct 38.3 MCV 78 L MCH 25.8 L MCHC 33.2 RDW 17.4 H Plt Count 381 Lymph % (Auto) 10.7 L [place] % (Auto) 9.3 Eos % (Auto) 0.1 Baso % (Auto) 0.3 Absolute Neuts (auto) 13.9 H Absolute Lymphs (auto) 1.9 Absolute Monos (auto) 1.6 H Absolute Eos (auto) 0.0 Absolute Basos (auto) 0.1 Seg Neutrophils % 79.6 H VBG pH VBG pCO2 VBG HCO3 VBG Base Excess Sodium 133.6 L Potassium 4.1 Chloride 100 Carbon Dioxide 20 L Anion Gap 14 BUN 13 Creatinine 0.86 Est GFR ( Amer) > 60 Est GFR (MDRD) Non-Af > 60 Glucose 278 H POC Glucose Calcium 9.9 Magnesium Total Bilirubin Direct Bilirubin Neonat Total Bilirubin Neonat Direct Bilirubin Neonat Indirect Bili AST ALT Alkaline Phosphatase Creatine Kinase CK-MB (CK-2) Troponin I 0.021 Total Protein Albumin TSH Free T4 Free T3 pg/mL Urine Color Urine Appearance Urine pH Ur Specific [place] Urine Protein Urine Glucose (UA) Urine Ketones Urine Blood Urine Nitrite (Reflex) Urine Bilirubin Urine Urobilinogen Leukocyte Esterase Rfl Urine WBC (Reflex) Squamous Epi Cells Auto Urine Mucus (Auto) Urine Ascorbic Acid Urine HCG, Qual POC Stool Occult Blood Salicylates Urine Opiates Screen Urine Methadone Screen Acetaminophen Ur Barbiturates Screen Ur Phencyclidine Scrn Ur Amphetamines Screen U Benzodiazepines Scrn Urine Cocaine Screen U Marijuana (THC) Screen Serum Alcohol 06/17/19 06/17/19 06/17/19 00:15 08:46 11:56 WBC RBC Hgb Hct MCV MCH MCHC RDW Plt Count Lymph % (Auto) [place] % (Auto) Eos % (Auto) Baso % (Auto) Absolute Neuts (auto) Absolute Lymphs (auto) Absolute Monos (auto) Absolute Eos (auto) Absolute Basos (auto) Seg Neutrophils % VBG pH VBG pCO2 VBG HCO3 VBG Base Excess Sodium Potassium Chloride Carbon Dioxide Anion Gap BUN Creatinine Est GFR ( Amer) Est GFR (MDRD) Non-Af Glucose POC Glucose 275 H 186 H Calcium Magnesium Total Bilirubin Direct Bilirubin Neonat Total Bilirubin Neonat Direct Bilirubin Neonat Indirect Bili AST ALT Alkaline Phosphatase Creatine Kinase CK-MB (CK-2) Troponin I Total Protein Albumin TSH 0.37 L Free T4 Free T3 pg/mL 3.81 Urine Color Urine Appearance Urine pH Ur Specific [place] Urine Protein Urine Glucose (UA) Urine Ketones Urine Blood Urine Nitrite (Reflex) Urine Bilirubin Urine Urobilinogen Leukocyte Esterase Rfl Urine WBC (Reflex) Squamous Epi Cells Auto Urine Mucus (Auto) Urine Ascorbic Acid Urine HCG, Qual POC Stool Occult Blood Salicylates Urine Opiates Screen Urine Methadone Screen Acetaminophen Ur Barbiturates Screen Ur Phencyclidine Scrn Ur Amphetamines Screen U Benzodiazepines Scrn Urine Cocaine Screen U Marijuana (THC) Screen Serum Alcohol 06/17/19 06/17/19 06/17/19 13:44 13:44 13:44 WBC RBC Hgb Hct MCV MCH MCHC RDW Plt Count Lymph % (Auto) [place] % (Auto) Eos % (Auto) Baso % (Auto) Absolute Neuts (auto) Absolute Lymphs (auto) Absolute Monos (auto) Absolute Eos (auto) Absolute Basos (auto) Seg Neutrophils % VBG pH VBG pCO2 VBG HCO3 VBG Base Excess Sodium Potassium Chloride Carbon Dioxide Anion Gap BUN Creatinine Est GFR ( Amer) Est GFR (MDRD) Non-Af Glucose POC Glucose Calcium Magnesium Total Bilirubin Direct Bilirubin Neonat Total Bilirubin Neonat Direct Bilirubin Neonat Indirect Bili AST ALT Alkaline Phosphatase Creatine Kinase 336 H CK-MB (CK-2) 3.21 Troponin I 0.155 Total Protein Albumin TSH Free T4 1.38 Free T3 pg/mL Urine Color Urine Appearance Urine pH Ur Specific [place] Urine Protein Urine Glucose (UA) Urine Ketones Urine Blood Urine Nitrite (Reflex) Urine Bilirubin Urine Urobilinogen Leukocyte Esterase Rfl Urine WBC (Reflex) Squamous Epi Cells Auto Urine Mucus (Auto) Urine Ascorbic Acid Urine HCG, Qual POC Stool Occult Blood Salicylates Urine Opiates Screen Urine Methadone Screen Acetaminophen Ur Barbiturates Screen Ur Phencyclidine Scrn Ur Amphetamines Screen U Benzodiazepines Scrn Urine Cocaine Screen U Marijuana (THC) Screen Serum Alcohol 06/17/19 17:40 WBC RBC Hgb Hct MCV MCH MCHC RDW Plt Count Lymph % (Auto) [place] % (Auto) Eos % (Auto) Baso % (Auto) Absolute Neuts (auto) Absolute Lymphs (auto) Absolute Monos (auto) Absolute Eos (auto) Absolute Basos (auto) Seg Neutrophils % VBG pH VBG pCO2 VBG HCO3 VBG Base Excess Sodium Potassium Chloride Carbon Dioxide Anion Gap BUN Creatinine Est GFR ( Amer) Est GFR (MDRD) Non-Af Glucose POC Glucose 127 H Calcium Magnesium Total Bilirubin Direct Bilirubin Neonat Total Bilirubin Neonat Direct Bilirubin Neonat Indirect Bili AST ALT Alkaline Phosphatase Creatine Kinase CK-MB (CK-2) Troponin I Total Protein Albumin TSH Free T4 Free T3 pg/mL Urine Color Urine Appearance Urine pH Ur Specific [place] Urine Protein Urine Glucose (UA) Urine Ketones Urine Blood Urine Nitrite (Reflex) Urine Bilirubin Urine Urobilinogen Leukocyte Esterase Rfl Urine WBC (Reflex) Squamous Epi Cells Auto Urine Mucus (Auto) Urine Ascorbic Acid Urine HCG, Qual POC Stool Occult Blood Salicylates Urine Opiates Screen Urine Methadone Screen Acetaminophen Ur Barbiturates Screen Ur Phencyclidine Scrn Ur Amphetamines Screen U Benzodiazepines Scrn Urine Cocaine Screen U Marijuana (THC) Screen Serum Alcohol Head CT 06/16/19 22:01 IMPRESSION: No acute intracranial abnormality is identified. Acute Abdomen Series 06/17/19 02:21 IMPRESSION: No bowel obstruction. EKG #1:SINUS TACHYCARDIA [LAACB] . TAQUERIA, CONSIDER BIATRIAL ABNORMALITIES [LVHREP] . LVH WITH SECONDARY REPOLARIZATION ABNORMALITY [IMI24] . PROBABLE INFERIOR INFARCT, OLD EKG #2: SINUS TACHYCARDIA [AMI4] . ABNRM R PROG, CONSIDER ASMI OR LEAD PLACEMENT - STMT - * BIATRIAL ENLARGEMENT EKG #3: SINUS TACHYCARDIA [BAA] . BIATRIAL ABNORMALITIES [AXR] . BORDERLINE RIGHT AXIS DEVIATION [T0IN] . BORDERLINE T ABNORMALITIES, INFERIOR LEADS EKG #4: SINUS TACHYCARDIA WITH IRREGULAR RATE 93-144 [T3IN] . ABNORMAL T, CONSIDER ISCHEMIA, INFERIOR LEADS EKG #5: ATRIAL TACHYCARDIA TERMINATED, FOLOWED BY BRIEF THIRD DEGREE AVB, THEN ASYSTOLE X 3 SECS, THEN SINUS BRADYCARDIA . - STMT - * PREMATURE COMPLEXES, VENT [1AVB] . FIRST DEGREE AV BLOCK [AXR] . BORDERLINE RIGHT AXIS DEVIATION EKG #6: SINUS TACHYCARDIA WITH IRREGULAR RATE 79-153 [TAQUERIA] . LEFT ATRIAL ABNORMALITY [AXR] . BORDERLINE RIGHT AXIS DEVIATION [T3IN] . ABNORMAL T, CONSIDER ISCHEMIA, INFERIOR LEAD EKG #7: SINUS TACHYCARDIA [T0IN] . BORDERLINE T ABNORMALITIES, INFERIOR LEADS IMPRESSION/RECOMMENDATION: 1. Elevated troponin: This is secondary to a combination of uncontrolled hypertension, tachycardia sinus and atrial tachycardia. Would continue beta- blockers. Trend the patient's troponin. Later would recommend IV Lexiscan Cardiolite stress test. 2. Tachycardia: This is a combination of sinus tachycardia with short DE interval and atrial tachycardia. Will continue beta-blockers. Would trend the patient's troponin I. Later when the heart rate is much better controlled would recommend getting an echocardiogram. Later IV Lexiscan Cardiolite stress test. 3. Chest tightness: Most likely related to uncontrolled hypertension. But later would recommend the patient have IV Lexiscan Cardiolite stress test in view of the patient does have several risk factors for coronary artery disease. 4.. Uncontrolled hypertension: Blood pressure much improved. But still not optimally controlled. Increase antihypertensives. 5. Severe anxiety: Psychiatric consult awaited. 6. Bipolar disorder: Again psych consult awaited. 7. Diabetes mellitus: Continue antidiabetic medication. 8. Abdominal pain most likely functional. But the patient does have a history of GERD and hiatal hernia. The patient is allergic to Reglan hence we will try just lidocaine viscus and Maalox. Medications reviewed. Medications adjusted medical regimen and management plan discussed with the attending provider on the case. Medical decision making is of high complexity. 60 minutes spent as patient more than 50% time spent in direct patient care. Will follow.
[2019-06-17] MEDS: MORPHINE SULFATE 10 MG/ML INJ IV PRN (20:10)
[2019-06-17 21:41] LABS: CREATINE KINASE MB 5.41 ng/mL (<4.55)
[2019-06-17 21:44] LABS: TROPONIN I 0.574 ng/mL
[2019-06-17] MEDS: AMLODIPINE BESYLATE 10 MG TABLET PO SCH (22:55)
[2019-06-18] MEDS: MAG HYDROX/AL HYDROX/SIMETH SUSP 30 ML UDCUP PO PRN (03:35)
[2019-06-18] MEDS: MORPHINE SULFATE 10 MG/ML INJ IV PRN ×2 (04:07→21:18)
[2019-06-18 05:12] LABS: HEMATOCRIT 34.1 % (36.0-47.0); HEMOGLOBIN 11.1 g/dL (12.0-15.5); MEAN CORPUSCULAR HEMOGLOBIN 25.7 pg (27.0-33.4); MEAN CORPUSCULAR HGB CONC 32.6 g/dL (32.0-36.0); MEAN CORPUSCULAR VOLUME 79 fl (80-97); PLATELET COUNT 303 10^3/uL (150-450); RED BLOOD COUNT 4.32 10^6/uL (3.72-5.28); RED CELL DISTRIBUTION WIDTH 17.6 % (11.5-14.0); WHITE BLOOD COUNT 13.3 10^3/uL (4.0-10.5)
[2019-06-18] MEDS: PANTOPRAZOLE SODIUM 40 MG TABLET.DR PO SCH ×2 (05:21→16:54)
[2019-06-18 05:41] LABS: ALBUMIN 3.8 g/dL (3.5-5.0); ALKALINE PHOSPHATASE 109 U/L (38-126); ANION GAP 14 (5-19); ASPARTATE AMINO TRANSFERASE 35 U/L (14-36); BILIRUBIN,DIRECT 0.4 mg/dL (0.0-0.4); BILIRUBIN,TOTAL 0.7 mg/dL (0.2-1.3); BLOOD UREA NITROGEN 27 mg/dL (7-20); CALCIUM 10.3 mg/dL (8.4-10.2); CARBON DIOXIDE 20 mmol/L (22-30); CHLORIDE 100 mmol/L (98-107); CREATINE KINASE 389 U/L (30-135); GLUCOSE 208 mg/dL (75-110); POTASSIUM 3.5 mmol/L (3.6-5.0); TOTAL PROTEIN 6.9 g/dL (6.3-8.2)
[2019-06-18 05:46] LABS: CREATINE KINASE MB 4.62 ng/mL (<4.55)
[2019-06-18 05:48] LABS: TROPONIN I 0.317 ng/mL
--- NOTE | 2019-06-18 07:42 | EKG REPORT ---
SEVERITY:- ABNORMAL ECG - SINUS TACHYCARDIA BORDERLINE R WAVE PROGRESSION, ANTERIOR LEADS NONSPECIFIC T ABNORMALITIES, INFERIOR LEADS CONVEX ST-T ELEVATIONS ANTERIOR LEADS , CONSIDER ACUTE ANTERIOR [place]. : Confirmed by: Eduardo Novak MD 18-Jun-2019 07:41:50
[2019-06-18] MEDS: INSULIN REG, HUMAN 100 UNIT/ML 3 ML VIAL (PYX) SUBCUT SCH ×4 (08:27→21:26)
[2019-06-18] MEDS: NITROGLYCERIN 0.4 MG/TAB 25 TAB/BOTTLE SL PRN ×2 (09:37→09:42)
[2019-06-18] MEDS: DOCUSATE SODIUM 100 MG CAPSULE PO SCH ×2 (09:39→17:04)
[2019-06-18] MEDS: METOPROLOL SUCCINATE 50 MG TAB.SR.24H PO SCH ×2 (09:41→22:46)
[2019-06-18] MEDS: HUM INSULIN NPH/REG INSULIN HM 100 UNIT/1 ML 3 ML SUBCUT SCH (09:44)
[2019-06-18] MEDS ORDERED: MORPHINE SULFATE 10 MG/ML INJ ONE (09:59)
[2019-06-18] MEDS ORDERED: METOPROLOL SUCCINATE 25 MG TAB.SR.24H PO SCH (10:00)
[2019-06-18] MEDS ORDERED: MORPHINE SULFATE 10 MG/ML INJ IV ONE (10:30)
--- NOTE | 2019-06-18 10:50 | PDOC PROGRESS REPORT ---
Subjective Progress Note for:: 06/18/19 Reason For Visit: TACHYCARDIA, HYPERTENSION, GUAIAC POSITIVE STOOL 06/18/2019 Patient admitted for anxiety, chronic tachycardia, heme positive stool Physical Exam Vital Signs: Temp Pulse Resp BP Pulse Ox 98.0 F 121 H 18 127/76 H 99 06/18/19 07:19 06/18/19 07:19 06/18/19 07:19 06/18/19 07:19 06/18/19 07:19 Intake & Output 06/17/19 06/18/19 06/19/19 06:59 06:59 06:59 Intake Total 3000 168 Output Total 0 0 Balance 3000 168 Weight 67.6 kg 68 kg General appearance: PRESENT: mild distress, other - Currently on rounds complaining of epigastric pain Respiratory exam: PRESENT: clear to auscultation bernardo. ABSENT: rales, rhonchi, wheezes Cardiovascular exam: PRESENT: RRR. ABSENT: diastolic murmur, rubs, systolic murmur Neurological exam: PRESENT: alert, awake, oriented to person, oriented to place, oriented to time, oriented to situation, CN II-XII grossly intact. ABSENT: motor sensory deficit Psychiatric exam: PRESENT: unusual affect, other - Patient rolling around on the bed dramatically complaining of epigastric pain Patient had previously been on the floor rolling around complaining of epigastric pain Results Laboratory Results: 06/18/19 04:55 06/18/19 04:55 06/17/19 06/18/19 06/18/19 13:44 04:55 04:55 WBC 13.3 H RBC 4.32 Hgb 11.1 L Hct 34.1 L MCV 79 L MCH 25.7 L MCHC 32.6 RDW 17.6 H Plt Count 303 Sodium 134.2 L Potassium 3.5 L Chloride 100 Carbon Dioxide 20 L Anion Gap 14 BUN 27 H Creatinine 1.92 H Est GFR ( Amer) 34 L Glucose 208 H Calcium 10.3 H Magnesium 1.8 Total Bilirubin 0.7 AST 35 Alkaline Phosphatase 109 Total Protein 6.9 Albumin 3.8 Free T4 1.38 06/16/19 06/17/19 06/17/19 19:01 00:15 13:44 Creatine Kinase 336 H CK-MB (CK-2) Troponin I 0.028 0.021 06/17/19 06/17/19 06/17/19 13:44 18:12 18:12 Creatine Kinase 357 H CK-MB (CK-2) 3.21 Troponin I 0.155 0.460 06/17/19 06/17/19 06/18/19 20:53 20:55 04:55 Creatine Kinase 379 H 389 H CK-MB (CK-2) 5.41 H Troponin I 0.574 06/18/19 04:55 Creatine Kinase CK-MB (CK-2) 4.62 H Troponin I 0.317 Impressions: Head CT 06/16/19 22:01 IMPRESSION: No acute intracranial abnormality is identified. Acute Abdomen Series 06/17/19 02:21 IMPRESSION: No bowel obstruction. Assessment and Plan - Diagnosis (1) Bipolar disorder Qualifiers: Active/Remission status: remission status unspecified Qualified Code(s): F31.9 - Bipolar disorder, unspecified Is this a current diagnosis for this admission?: Yes (2) Diabetes mellitus type 2 in obese Is this a current diagnosis for this admission?: Yes (3) Generalized anxiety disorder Is this a current diagnosis for this admission?: Yes (4) Hypertensive urgency Is this a current diagnosis for this admission?: Yes (5) Occult blood positive stool Is this a current diagnosis for this admission?: Yes (6) Abdominal pain Qualifiers: Is this a current diagnosis for this admission?: Yes - Plan Summary Summary: Patient will be admitted to the medical floor in a telemetry bed where she will receive routine supportive and symptomatic cares. She will be treated with IV Thorazine 25 mg IV every 4 hours for agitation and restlessness. She will be treated with IV Valium 10 mg every 4 hours as needed for anxiety. A gastroenterology consultation with Dr. Rogers and a psychology consultation with Oseas Downs will be obtained. Patient will be treated aggressively to resolve her hypertension with both oral therapy utilizing metoprolol and IV therapy utilizing hydralazine. Patient will be continued on her usual diabetic and cardiac diet as well as her regular home medications as appropriate. Before meals and at bedtime Accu-Cheks will be obtained and sliding scale insulin be used for hyperglycemia with a hypoglycemic protocol in place. Laboratory evaluations including a CBC, metabolic profiles and magnesium levels will be obtained as needed. 06/18/2019 Vital signs are stable although at times when patient is complaining of epigastric pain her blood pressures up in the 180s systolic. Average blood pressure looks like it is around 130/76 pulse rate is anywhere from 1 15-1 52, oxygen saturations 99% on room air. Labs show her BUN is gone up to 27 creatinine is gone up to 1.92. Will add IV fluids maintenance. A1c is elevated at 9.2 Opponents have been up and down which is felt to be due to factors other than cardiac ischemia, typically uncontrolled hypertension, tachycardia. Agree with cardiology consult and will recommend a IV Nubia scan Cardiolite stress test as soon as patient's anxiety disorder becomes stabilized Patient started having epigastric pain almost immediately after eating a banana this morning. I am going to address this with medications other than narcotics. Does get relief from nitro sublingual and a very low dose of morphine. Think she is probably having a component of esophageal spasm from her GERD which the nitro covers, course the morphine is self-explanatory Hemoglobin has remained stable on admission 12.9 it is now 11.1 Going to repeat a stool check for blood. Await psych recommendations concerning antianxiety medications. I will order Carafate as well as Bentyl. Continue the beta-stefanie. Watch patient closely. - Time Time Spent with patient: 35 or more minutes
[2019-06-18] MEDS: NORMAL SALINE 1000 ML 1,000 ML IV PRN ×2 (11:29→22:00)
[2019-06-18] MEDS: SUCRALFATE 1 GM TABLET PO SCH ×3 (11:29→21:18)
[2019-06-18] MEDS: DICYCLOMINE HCL 10 MG CAPSULE PO PRN (12:59)
[2019-06-18] MEDS ORDERED: TRAMADOL HCL 50 MG TABLET PO PRN (13:01)
--- NOTE | 2019-06-18 17:23 | XCELERA REPORT ---
[address] [address] Transthoracic Echocardiogram Report Name: RUTH CA Age: 44 yrs Gender: Female : 1975 Patient Status: Inpatient Patient Location: [address] [place], [place] [address] Study Date: 06/18/2019 10:18 AM Height: 60 in Weight: 149 lb BSA: 1.6 m2 Procedure: A two-dimensional transthoracic echocardiogram with color flow and Doppler was performed. Study Quality: Fair. Reason For Study: NSTEMI / Chest Pain History: NSTEMI / Chest Pain. Ordering Physician: BUFFY TRAN Performed By: Roberto Perry Interpretation Summary The left ventricle is normal in size. There is moderate asymmetric left ventricular hypertrophy. There is 'LU' and a resting LVOT gradient consistent with HOCM with a mild resting LVOT gradient. The left ventricle is hyperdynamic. LV EF is > than 80%.% Doppler measurements suggest pseudonormalized left ventricular relaxation, which is associated with grade II/IV or mild to moderate diastolic dysfunction There is hyperdynamic LV contractility.No regional wall motion abnormality seen. There is no thrombus. No ASD,VSD,or PFO seen. The right ventricle is normal in size and function. The right atrium is normal. The left atrial size is normal. There is no evidence of mitral valve prolapse. There is no vegetation seen on the mitral valve. There is no mitral valve stenosis. There is a mild amount of mitral regurgitation There is no aortic valvular vegetation. Aortic Valve opens well.There is no .The gradient across the AV is due to LVOT obstruction.There is a mild Resting LVOT gradient of 24 mm of Hg.There is systolic anterior motion of the the Mitrsl Vslve.Hence there iss HOCM (IHSS). There is no tricuspid stenosis. There is a mild amount of tricuspid regurgitation There is mild pulmonary hypertension by echo RVSP is 29 to 34 mm of Hg , with a RA mean of 5 to 10. There is no pulmonic valvular stenosis. There is no pulmonic valvular regurgitation. The aortic root is normal size. The inferior vena cava appeared normal and decreased > 50% with respiration (RAP 5-10 mmHg) There is no pericardial effusion. MMode/2D Measurements & Calculations RVDd: 2.6 cm LVIDd: 3.1 cm FS: 43.9 % Ao root diam: 3.1 cm IVSd: 1.5 cm LVIDs: 1.7 cm EDV(Teich): 37.7 ml Ao root area: 7.5 cm2 LVPWd: 1.3 cm ESV(Teich): 8.9 ml LA dimension: 3.0 cm EF(Teich): 76.5 % Doppler Measurements & Calculations MV E max rachel: MV P1/2t max rachel: Ao V2 max: LV V1 max P.9 cm/sec 107.7 cm/sec 241.5 cm/sec 15.8 mmHg MV A max rachel: MV P1/2t: 38.8 msec Ao max PG: LV V1 max: 130.3 cm/sec MVA(P1/2t): 5.7 cm2 23.3 mmHg 199.0 cm/sec MV E/A: 0.54 MV dec slope: 813.5 cm/sec2 MV dec time: 0.12 sec PA V2 max: TR max rachel: MV P1/2t-pr_phl: 172.1 cm/sec 244.1 cm/sec 38.8 msec PA max PG: TR max P.8 mmHg 11.8 mmHg Left Ventricle The left ventricle is normal in size. There is moderate asymmetric left ventricular hypertrophy. There is 'LU' and a resting LVOT gradient consistent with HOCM with a mild resting LVOT gradient. The left ventricle is hyperdynamic. LV EF is > than 80%.%. Doppler measurements suggest pseudonormalized left ventricular relaxation, which is associated with grade II/IV or mild to moderate diastolic dysfunction. There is hyperdynamic LV contractility.No regional wall motion abnormality seen. There is no thrombus. No ASD,VSD,or PFO seen. Right Ventricle The right ventricle is normal in size and function. Atria The right atrium is normal. The left atrial size is normal. Mitral Valve There is no evidence of mitral valve prolapse. There is no vegetation seen on the mitral valve. There is no mitral valve stenosis. There is a mild amount of mitral regurgitation. Aortic Valve There is no aortic valvular vegetation. Aortic Valve opens well.There is no .The gradient across the AV is due to LVOT obstruction.There is a mild Resting LVOT gradient of 24 mm of Hg.There is systolic anterior motion of the the Mitrsl Vslve.Hence there iss HOCM (IHSS). Tricuspid Valve There is no tricuspid stenosis. There is a mild amount of tricuspid regurgitation. There is mild pulmonary hypertension by echo. RVSP is 29 to 34 mm of Hg , with a RA mean of 5 to 10. Pulmonic Valve There is no pulmonic valvular stenosis. There is no pulmonic valvular regurgitation. Great Vessels The aortic root is normal size. The inferior vena cava appeared normal and decreased > 50% with respiration (RAP 5-10 mmHg). Effusions There is no pericardial effusion. : BUFFY TRAN Lakshmi
[2019-06-18] MEDS: OXYCODONE-ACETAMINOPHEN 5-325 MG TABLET PO PRN (18:14)
--- NOTE | 2019-06-18 18:41 | Progress Note ---
Provider Note Provider Note: CARDIOLOGY PROGRESS NOTE by Dr. Buffy Ferguson on 06/18/2019. Subjective: The patient still has episodes of agitation. She ate a banana and complained of severe epigastric pain. This was relieved with Bentyl. Her renal function is deteriorated. Today she has no clear-cut anginal symptoms. The troponins are trending down. The patient still has not had psychiatric consult.. The patient still has sinus tachycardia. There is no recurrence of atrial tachycardia. There is no ventricular arrhythmia seen on the monitor. The patient will not give meaningful answers to any questions placed on the patient regarding her symptoms. We will review the patient's echo when available. PHYSICAL EXAMINATION: The patient is overweight. She appears to be withdrawn and at times agitated. Selected Entries 06/18/19 07:19 Temperature 98.0 F Temperature Oral Source Respiratory 18 Rate Blood Pressure 127/76 H Blood Pressure 93 Mean BP Location Right Arm BP Position Supine O2 Sat by Pulse 99 Oximetry Oxygen Delivery Room Air Method HEAD: Is atraumatic normocephalic. EYES: Pupils are equal round regular reactive to light and accommodation. Extraocular movements are normal. There is no conjunctival pallor. There is no scleral icterus. EARS: Tympanic membranes are intact. External auditory canals are clear. NOSE: There is no deviated nasal septum. There is no inflammation nasal mucous membrane. MOUTH: Mucous membranes of the mouth are moist. Tongue is moist. There is no ulcers. There is no bleeding from the gums. THROAT: There is no redness of the oropharynx. There is no exudates. SKIN: There is no skin lesion rashes. There is no petechia or ecchymosis. NECK: Is supple. There is no JVD. Carotids are equal there is no bruit there is no lymphadenopathy. There is no goiter. There is no accessory muscle respiration use. Trachea central. LUNGS: Is clear to auscultation percussion without any rhonchi rales or wheezing. On palpation there is no chest wall tenderness. HEART: S1-S2 is heard. There is no S3 gallop. There is no S4 gallop. There is no S3 gallop. There is systolic murmur in the left sternal border and the apex. There is no rub. ABDOMEN: Soft nontender there is no paraspinal megaly. In spite of the patient complains of epigastric pain palpation reveals no reproducible symptoms and the patient remains without any response to deep palpation. There is no rebound guarding or rigidity. Bowel sounds are well heard. EXTREMITIES: Femorals are well felt. There is no femoral bruits. Leg pulses well felt. There is no DVT or cellulitis. There is no pedal edema. There is no calf tenderness. There is no cyanosis or clubbing. KNAPSACK SPRAYER: The patient is conscious slightly withdrawn with no focal deficits. PSYCHIATRIC: The patient does appear to be withdrawn. Unable to make further psych exam. EKG shows sinus tachycardia. LVH with strain pattern. Anterior ST elevation secondary to LVH. Labs- All tests 24 hr 06/17/19 06/17/19 06/17/19 18:12 18:12 20:53 WBC RBC Hgb Hct MCV MCH MCHC RDW Plt Count Sodium Potassium Chloride Carbon Dioxide Anion Gap BUN Creatinine Est GFR ( Amer) Est GFR (MDRD) Non-Af Glucose POC Glucose Hemoglobin A1c % Calcium Magnesium Total Bilirubin Direct Bilirubin Neonat Total Bilirubin Neonat Direct Bilirubin Neonat Indirect Bili AST ALT Alkaline Phosphatase Creatine Kinase 357 H CK-MB (CK-2) 5.41 H Troponin I 0.460 0.574 Total Protein Albumin 06/17/19 06/17/19 06/18/19 20:55 21:06 04:55 WBC 13.3 H RBC 4.32 Hgb 11.1 L Hct 34.1 L MCV 79 L MCH 25.7 L MCHC 32.6 RDW 17.6 H Plt Count 303 Sodium Potassium Chloride Carbon Dioxide Anion Gap BUN Creatinine Est GFR ( Amer) Est GFR (MDRD) Non-Af Glucose POC Glucose 119 H Hemoglobin A1c % Calcium Magnesium Total Bilirubin Direct Bilirubin Neonat Total Bilirubin Neonat Direct Bilirubin Neonat Indirect Bili AST ALT Alkaline Phosphatase Creatine Kinase 379 H CK-MB (CK-2) Troponin I Total Protein Albumin 06/18/19 06/18/19 06/18/19 04:55 04:55 04:55 WBC RBC Hgb Hct MCV MCH MCHC RDW Plt Count Sodium 134.2 L Potassium 3.5 L Chloride 100 Carbon Dioxide 20 L Anion Gap 14 BUN 27 H Creatinine 1.92 H Est GFR ( Amer) 34 L Est GFR (MDRD) Non-Af 29 L Glucose 208 H POC Glucose Hemoglobin A1c % 9.2 H Calcium 10.3 H Magnesium 1.8 Total Bilirubin 0.7 Direct Bilirubin 0.4 Neonat Total Bilirubin Not Reportable Neonat Direct Bilirubin Not Reportable Neonat Indirect Bili Not Reportable AST 35 ALT 20 Alkaline Phosphatase 109 Creatine Kinase 389 H CK-MB (CK-2) 4.62 H Troponin I 0.317 Total Protein 6.9 Albumin 3.8 06/18/19 06/18/19 06/18/19 07:20 11:11 16:35 WBC RBC Hgb Hct MCV MCH MCHC RDW Plt Count Sodium Potassium Chloride Carbon Dioxide Anion Gap BUN Creatinine Est GFR ( Amer) Est GFR (MDRD) Non-Af Glucose POC Glucose 131 H 195 H 124 H Hemoglobin A1c % Calcium Magnesium Total Bilirubin Direct Bilirubin Neonat Total Bilirubin Neonat Direct Bilirubin Neonat Indirect Bili AST ALT Alkaline Phosphatase Creatine Kinase CK-MB (CK-2) Troponin I Total Protein Albumin Head CT 06/16/19 22:01 IMPRESSION: No acute intracranial abnormality is identified. Acute Abdomen Series 06/17/19 02:21 IMPRESSION: No bowel obstruction. IMPRESSION/ ,RECOMMENDATION: 1. Elevated troponin: This is secondary to a combination of uncontrolled hypertension, tachycardia sinus and atrial tachycardia. Would continue beta- blockers. Trend the patient's troponin. Later would recommend IV Lexiscan Cardiolite stress test. The patient does have multiple CAD risk factors namely age, and family history of coronary artery disease and hypertension. Later we will decide whether patient will have a IV Lexiscan Cardiolite versus cardiac catheterization. I will prefer cardiac catheterization if the renal function improves, since the patient does have IHSS. 2. Tachycardia: This is a combination of sinus tachycardia with short [place] interval and atrial tachycardia. Will continue beta-blockers. Would trend the patient's troponin I. Later when the heart rate is much better controlled would recommend getting an echocardiogram. Later IV Lexiscan Cardiolite stress test. 3. Chest tightness: Most likely related to uncontrolled hypertension. But later would recommend the patient have IV Lexiscan Cardiolite stress test in view of the patient does have several risk factors for coronary artery disease. 4.. Uncontrolled hypertension: Blood pressure much improved. But still not optimally controlled. Increase antihypertensives. 5. Severe anxiety: Psychiatric consult awaited. 6. Bipolar disorder: Again psych consult awaited. 7. Diabetes mellitus: Continue antidiabetic medication. 8. Abdominal pain most likely functional. But the patient does have a history of GERD and hiatal hernia. She also has Hemoccult positive stools. 9. Acute renal failure.? Etiology. The patient presently is on normal saline fluid replacement. Would recommend changing the normal saline to Ringer's lactate. Will avoid nephrotoxic medications. The patient's echo was reviewed. She has asymmetrical septal hypertrophy with a mild resting LVOT gradient of 24 mmHg. Consistent with HOCM [IHSS]. SHE HAS HYPERDYNAMIC LV CONTRACTILITY. She has mild mitral regurgitation, mild tricuspid regurgitation mild pulmonary hypertension. There is no aortic stenosis or aortic regurgitation. The patient with a elevated blood pressure atrial tachycardia and abnormal troponin levels which are now trending down. Unfortunately cannot start the patient on IV heparin due to Hemoccult positive stools and lack of clear-cut angina. Also the patient is acute renal failure. Would recommend hydrating the patient, but I am not sure the patient will keep the IV. Still awaiting cystitis psych consult. Medical decision making is moderate to high complexity. Medical regimen and management plan discussed with the hospitalist attending provider. We will increase the patient's beta-stefanie. 40 minutes spent on the patient with more than 50% time spent in direct patient care. Will follow.
[2019-06-18] MEDS: HYDRALAZINE HCL INJ/PF 20 MG/1 ML SDV IV PRN (19:31)
--- NOTE | 2019-06-18 21:32 | PSYCHOLOGICAL NOTE ---
Psych Note - Psych Note Date seen by psych provider: 06/18/19 Time seen by psych provider: 17:30 Psych Note: Patient is a 44-year-old female who was admitted to hospital for medical concerns. Behavioral health consult was placed to due patient's reported anxiety. Patient is known to behavioral health team. Clinician notes patient is withering on the bed in pain as clinician enters the room. Patient states her anxiety is related to her boyfriend's recent hospitali zation to a hospital in [place]. Patient was living with boyfriend and boyfriend's mother. Patient reports boyfriend's mother recently "put me out of the house." Patient has since been living with her daughter. Patient describes current living situation as stressful. Patient describes her life as being "crappy since New Years." Patient states she supports herself with her disability stipend for "functional abdominal pain and Bipolar." Patient denies symptoms of Bipolar disorder interfere with her day to day functioning. Patient states she is prescribed Cymbalta and Buspar through [facility]. Patient states she is taking Cymbalta but not the Buspar. Patient is alert and oriented to person, place, time and circumstance. Mood is normal with congruent affect. Patient denies suicidal and homicidal ideations. Delusions are absent and behavior is congruent with an intact reality based presentation (i.e., organized and linear through processes). There is no observed behavior that suggests patient is responding to internal stimuli. Patient is able to engage in organized, rational thought processes. Patient is able to express needs and wants in a logical manner. Patient denies current donnell tory and visual hallucinations. Eye contact is appropriate. Conversational speech is within normal rate, tone, and prosody. Intellectual ability appears to be within average range. Attention and concentration are good. Insight, judgment and impulse control are currently poor. Medication recommendations per [facility] contracted psychiatrist Dr. Autumn MD are as follows: Buspar 5MG, twice a day Impression/Plan: Patient is cleared from acute psychiatric services. Medication recommendations have been provided. Patient denies suicidal and homicidal ideations. There is no observed behavior that suggests patient is responding to internal stimuli. Patient engaged in organized, rational, linear thought processes and was able to express needs and wants in a logical manner. Review of the [place] controlled substance database indicates frequent prescriptions by various providers for opiates and benzodiazepines. Plan is for patient to follow up with her mental health provider, [facility]. Dr. Downs was consulted on the care and management of this patient; attending physician is in agreement with recommendations and disposition.
[2019-06-18] MEDS: AMLODIPINE BESYLATE 10 MG TABLET PO SCH (22:46)
[2019-06-19] MEDS: PANTOPRAZOLE SODIUM 40 MG TABLET.DR PO SCH ×2 (05:18→19:02)
[2019-06-19] MEDS: MORPHINE SULFATE 10 MG/ML INJ IV PRN ×2 (05:45→23:51)
[2019-06-19] MEDS: NORMAL SALINE 1000 ML 1,000 ML IV PRN (06:23)
[2019-06-19 06:59] LABS: HEMATOCRIT 35.9 % (36.0-47.0); HEMOGLOBIN 11.9 g/dL (12.0-15.5); MEAN CORPUSCULAR HEMOGLOBIN 26.2 pg (27.0-33.4); MEAN CORPUSCULAR HGB CONC 33.3 g/dL (32.0-36.0); MEAN CORPUSCULAR VOLUME 79 fl (80-97); PLATELET COUNT 345 10^3/uL (150-450); RED BLOOD COUNT 4.55 10^6/uL (3.72-5.28); RED CELL DISTRIBUTION WIDTH 17.4 % (11.5-14.0)
[2019-06-19] MEDS: SUCRALFATE 1 GM TABLET PO SCH ×4 (09:37→21:21)
[2019-06-19] MEDS: INSULIN REG, HUMAN 100 UNIT/ML 3 ML VIAL (PYX) SUBCUT SCH ×2 (09:40→21:24)
[2019-06-19] MEDS: HUM INSULIN NPH/REG INSULIN HM 100 UNIT/1 ML 3 ML SUBCUT SCH (09:42)
[2019-06-19] MEDS: BUSPIRONE HCL 10 MG TABLET PO SCH ×2 (09:42→19:03)
[2019-06-19] MEDS: DOCUSATE SODIUM 100 MG CAPSULE PO SCH ×2 (09:43→19:02)
[2019-06-19] MEDS: METOPROLOL SUCCINATE 50 MG TAB.SR.24H PO SCH ×2 (09:43→21:21)
--- NOTE | 2019-06-19 10:22 | PDOC CONSULTATION ---
Consultation Consult Date: 06/19/19 Attending physician:: MAILE ESTRADA Provider Consulted: PRANAY FARIAS Consult reason:: EGD History of Present Illness Admission Date/PCP: 06/17/19 03:29 GLEN MCGRATH PA-C History of Present Illness: RUTH CA is a 44 year old female Hospitalized 3 days ago for a variety of planes including epigastric pain. Patient has a long history of abdominal pain, generating 100s of visits to the emergency department over the last several years. She states she has had an EGD in the past with unknown findings. Patient is now evaluated by the yarn comber and felt not to have a cardiogenic source of epigastric and substernal pain. Upper endoscopy is requested by the hospitalist. Past Medical History Cardiac Medical History: Reports: Hyperlipidema, Hypertension Denies: Atrial Fibrillation, Coronary Artery Disease, DVT, Pulmonary Embolism Pulmonary Medical History: Denies: Asthma, Chronic Obstructive Pulmonary Disease (COPD) EENT Medical History: Reports: Ears - Hearing aids Denies: Cataracts Neurological Medical History: Denies: Hemorrhagic CVA, Ischemic CVA, Seizures Endocrine Medical History: Reports: Diabetes Mellitus Type 2 Denies: Diabetes Mellitus Type 1, Hyperthyroidism, Hypothyroidism, Obesity Renal/ Medical History: Denies: Chronic Kidney Disease, Nephrolithiasis Malignancy Medical History: Reports: None GI Medical History: Reports: Gastroesophageal Reflux Disease, Hiatal Hernia, Other - Diabetic gastroparesis with cyclic vomiting Denies: Cirrhosis, Crohn's Disease, Hepatitis, Peptic Ulcer Disease, Ulcerative Colitis Musculoskeltal Medical History: Reports: Arthritis Denies: Gout Skin Medical History: Reports: Eczema Denies: Psoriasis Psychiatric Medical History: Reports: Bipolar Disorder, Depression, General Anxiety Disorder Denies: Alcohol Dependency, Substance Abuse, Tobacco Dependency Traumatic Medical History: Reports: None Hematology: Reports: Anemia Denies: Bleeding Tendencies Infectious Medical History: Reports: Methicillin-Resistant Staph Aureus Past Surgical History Past Surgical History: Reports: Cholecystectomy Social History Lives with: Family Smoking Status: Never Smoker Electronic Cigarette use?: No Frequency of Alcohol Use: None Hx Recreational Drug Use: No Drugs: None Hx Prescription Drug Abuse: No - Advance Directive Resuscitation Status: Full Code Family History Family History: DM, Hypertension. denies: CAD, Malignancy Parental Family History Reviewed: Yes Children Family History Reviewed: Yes Sibling(s) Family History Reviewed.: Yes Medication/Allergy Home Medications: Amitriptyline HCl [Elavil 25 mg Tablet] 25 mg PO QHS 06/17/19 Amlodipine Besylate [Norvasc 10 mg Tablet] 10 mg PO DAILY 06/17/19 Clonidine [Catapres-Tts 2 (0.2 mg/24 Hr) Transderm Ptch] 0.2 mg TOP DIALLO@1000 06/17/19 Duloxetine HCl [Cymbalta 20 mg Capsule.dr] 20 mg PO BID 06/17/19 Hydroxyzine HCl [Atarax 25 mg Tablet] 25 mg PO Q8HP PRN 06/17/19 Insulin Aspart [Novolog Flexpen] 0 unit SUBCUT .SLD SCALE MDD 50 UNITS 06/17/19 Insulin Glargine,Hum.rec.anlog [Lantus Insulin 100 Unit/1 ml 10 ml] 50 unit SUBCUT DAILY MDD 50 UNITS 06/17/19 Lisinopril [Prinivil] 20 mg PO DAILY 06/17/19 Metoprolol Tartrate [Lopressor 25 mg Tablet] 12.5 mg PO Q12 06/17/19 Phenobarbital [Phenobarbital 20 mg/5 ml Elixir Udcup] 5 ml PO BIDP PRN 06/17/19 Rosuvastatin Calcium [Crestor] 40 mg PO DAILY 06/17/19 Sucralfate [Carafate 1 gm Tablet] 1 gm PO BID 06/17/19 Allergies/Adverse Reactions: metoclopramide HCl [From Reglan] Allergy (Unknown, Verified 05/21/19 02:12) Review of Systems Constitutional: ABSENT: chills, fever(s), headache(s), weight gain, weight loss Eyes: ABSENT: visual disturbances Ears: ABSENT: hearing changes Gastrointestinal: PRESENT: other - Patient gives poor history of abdominal pain. Musculoskeletal: ABSENT: joint swelling Physical Exam Vital Signs: Temp Pulse Resp BP Pulse Ox 97.8 F 95 16 126/69 H 98 06/19/19 03:36 06/19/19 07:00 06/19/19 03:36 06/19/19 03:36 06/19/19 03:36 Intake & Output 06/18/19 06/19/19 06/20/19 06:59 06:59 06:59 Intake Total 168 3150 Output Total 0 800 Balance 168 2350 Weight 68 kg 71.6 kg General appearance: PRESENT: no acute distress Eye exam: PRESENT: EOMI Mouth exam: PRESENT: dry mucosa Neck exam: PRESENT: full ROM Respiratory exam: PRESENT: clear to auscultation bernardo Cardiovascular exam: PRESENT: RRR Pulses: PRESENT: normal carotid pulses, normal radial pulses GI/Abdominal exam: PRESENT: other - Soft; well-healed scars consistent with previous cholecystectomy; tender in the midepigastric area to deep palpation. Rectal exam: PRESENT: deferred Musculoskeletal exam: PRESENT: full ROM Neurological exam: PRESENT: oriented to person, oriented to place, oriented to time, oriented to situation Results Laboratory Results: 06/19/19 06:09 06/18/19 04:55 06/19/19 06/19/19 06:09 06:09 WBC 8.0 RBC 4.55 Hgb 11.9 L Hct 35.9 L MCV 79 L MCH 26.2 L MCHC 33.3 RDW 17.4 H Plt Count 345 Magnesium 1.6 06/16/19 06/17/19 06/17/19 19:01 00:15 13:44 Creatine Kinase 336 H CK-MB (CK-2) Troponin I 0.028 0.021 06/17/19 06/17/19 06/17/19 13:44 18:12 18:12 Creatine Kinase 357 H CK-MB (CK-2) 3.21 Troponin I 0.155 0.460 06/17/19 06/17/19 06/18/19 20:53 20:55 04:55 Creatine Kinase 379 H 389 H CK-MB (CK-2) 5.41 H Troponin I 0.574 06/18/19 04:55 Creatine Kinase CK-MB (CK-2) 4.62 H Troponin I 0.317 Impressions: Head CT 06/16/19 22:01 IMPRESSION: No acute intracranial abnormality is identified. Acute Abdomen Series 06/17/19 02:21 IMPRESSION: No bowel obstruction. Assessment & Plan - Diagnosis (1) Abdominal pain Qualifiers: Is this a current diagnosis for this admission?: Yes Plan: Impression: Subacute epigastric and substernal chest pain of unclear etiology; genic source ruled out Recommendations: 1. We will set patient up for upper endoscopy, possible biopsy later today under LMAC anesthesia. The risk benefits alternatives of planned procedure with the patient. I believe she understands and agrees to proceed. (2) Bipolar disorder Qualifiers: Active/Remission status: remission status unspecified Qualified Code(s): F31.9 - Bipolar disorder, unspecified Is this a current diagnosis for this admission?: Yes (3) Diabetes mellitus type 2 in obese Is this a current diagnosis for this admission?: Yes
[2019-06-19] MEDS ORDERED: PHENOBARBITAL 20 MG/5 ML UDCUP PO PRN (11:44)
--- NOTE | 2019-06-19 12:02 | PDOC PROGRESS REPORT ---
Subjective Progress Note for:: 06/19/19 Reason For Visit: TACHYCARDIA, HYPERTENSION, GUAIAC POSITIVE STOOL 06/19/2019 Admitted for abdominal pain, anxiety, chest pain, heme positive stools, hemorrhoids, depression, bipolar Physical Exam Vital Signs: Temp Pulse Resp BP Pulse Ox 97.8 F 95 16 126/69 H 98 06/19/19 03:36 06/19/19 07:00 06/19/19 03:36 06/19/19 03:36 06/19/19 03:36 Intake & Output 06/18/19 06/19/19 06/20/19 06:59 06:59 06:59 Intake Total 168 3150 Output Total 0 800 Balance 168 2350 Weight 68 kg 71.6 kg General appearance: PRESENT: mild distress, other - Secondary to epigastric pain chest wall pain, anxiety Respiratory exam: PRESENT: clear to auscultation bernardo. ABSENT: rales, rhonchi, wheezes Cardiovascular exam: PRESENT: tachycardia GI/Abdominal exam: PRESENT: normal bowel sounds, tenderness - Epigastric region Neurological exam: PRESENT: altered, other - Sleepy but arouses easily answers questions Psychiatric exam: PRESENT: anxious, unusual affect Results Laboratory Results: 06/19/19 06:09 06/18/19 04:55 06/19/19 06/19/19 06:09 06:09 WBC 8.0 RBC 4.55 Hgb 11.9 L Hct 35.9 L MCV 79 L MCH 26.2 L MCHC 33.3 RDW 17.4 H Plt Count 345 Magnesium 1.6 06/16/19 06/17/19 06/17/19 19:01 00:15 13:44 Creatine Kinase 336 H CK-MB (CK-2) Troponin I 0.028 0.021 06/17/19 06/17/19 06/17/19 13:44 18:12 18:12 Creatine Kinase 357 H CK-MB (CK-2) 3.21 Troponin I 0.155 0.460 06/17/19 06/17/19 06/18/19 20:53 20:55 04:55 Creatine Kinase 379 H 389 H CK-MB (CK-2) 5.41 H Troponin I 0.574 06/18/19 04:55 Creatine Kinase CK-MB (CK-2) 4.62 H Troponin I 0.317 Impressions: Head CT 01/21/20 22:01 IMPRESSION: No acute intracranial abnormality is identified. Acute Abdomen Series 06/17/19 02:21 IMPRESSION: No bowel obstruction. Assessment and Plan - Diagnosis (1) Bipolar disorder Qualifiers: Active/Remission status: remission status unspecified Qualified Code(s): F31.9 - Bipolar disorder, unspecified Is this a current diagnosis for this admission?: Yes (2) Diabetes mellitus type 2 in obese Is this a current diagnosis for this admission?: Yes (3) Generalized anxiety disorder Is this a current diagnosis for this admission?: Yes (4) Hypertensive urgency Is this a current diagnosis for this admission?: Yes (5) Occult blood positive stool Is this a current diagnosis for this admission?: Yes (6) Abdominal pain Qualifiers: Is this a current diagnosis for this admission?: Yes - Plan Summary Summary: Patient will be admitted to the medical floor in a telemetry bed where she will receive routine supportive and symptomatic cares. She will be treated with IV Thorazine 25 mg IV every 4 hours for agitation and restlessness. She will be treated with IV Valium 10 mg every 4 hours as needed for anxiety. A gastroenterology consultation with Dr. Rogers and a psychology consultation with Oseas Downs will be obtained. Patient will be treated aggressively to resolve her hypertension with both oral therapy utilizing metoprolol and IV therapy utilizing hydralazine. Patient will be continued on her usual diabetic and cardiac diet as well as her regular home medications as appropriate. Before meals and at bedtime Accu-Cheks will be obtained and sliding scale insulin be used for hyperglycemia with a hypoglycemic protocol in place. Laboratory evaluations including a CBC, metabolic profiles and magnesium levels will be obtained as needed. 06/18/2019 Vital signs are stable although at times when patient is complaining of epigastric pain her blood pressures up in the 180s systolic. Average blood pressure looks like it is around 130/76 pulse rate is anywhere from 115-152, oxygen saturations 99% on room air. Labs show her BUN is gone up to 27 creatinine is gone up to 1.92. Will add IV fluids maintenance. A1c is elevated at 9.2 Troponins have been up and down which is felt to be due to factors other than cardiac ischemia, typically uncontrolled hypertension, tachycardia. Agree with cardiology consult and will recommend a IV Nubia scan Cardiolite stress test as soon as patient's anxiety disorder becomes stabilized Patient started having epigastric pain almost immediately after eating a banana this morning. I am going to address this with medications other than narcotics. Does get relief from nitro sublingual and a very low dose of morphine. Think she is probably having a component of esophageal spasm from her GERD which the nitro covers, course the morphine is self-explanatory Hemoglobin has remained stable on admission 12.9 it is now 11.1 Going to repeat a stool check for blood. Await psych recommendations concerning antianxiety medications. I will order Carafate as well as Bentyl. Continue the beta-stefanie. Watch patient closely. 06/19/2019 Heart rates now have actually come down into the 90s, which may be due to the Toprol 50 mg every 12 hours Pressures appear to have stabilized around 130/70, which is probably secondary to the Norvasc 10 mg nightly O2 saturations are in the upper 90s on room air We will continue the Bentyl and Carafate. I have reorder her Cymbalta Initiated BuSpar 5 mg twice daily per psychiatry Fortunately due to patient's IHSS on her echocardiogram she is not a good anesthesia risk therefore will not be able to do the upper endoscopy. If patient's abdominal pain persist would recommend she have this done at a Medical Center. Patient has multiple emergency room visits for abdominal pain. Instead I will order a CT scan of the abdomen and pelvis with oral contrast only. I have discontinued her IV narcotics, changed her to p.o. Percocet every 4 hours as needed - Time Time Spent with patient: 35 or more minutes
[2019-06-19] MEDS: HYDRALAZINE HCL INJ/PF 20 MG/1 ML SDV IV PRN (12:03)
[2019-06-19 13:42] LABS: ANION GAP 13 (5-19); BLOOD UREA NITROGEN 14 mg/dL (7-20); CALCIUM 9.8 mg/dL (8.4-10.2); CARBON DIOXIDE 21 mmol/L (22-30); CHLORIDE 99 mmol/L (98-107); GLUCOSE 163 mg/dL (75-110)
[2019-06-19] MEDS: OXYCODONE-ACETAMINOPHEN 5-325 MG TABLET PO PRN ×3 (14:02→23:32)
[2019-06-19] MEDS ORDERED: SUCRALFATE 1 GM TABLET PO SCH (18:00)
--- NOTE | 2019-06-19 18:11 | RADIOLOGY REPORT (SQ) ---
EXAM DESCRIPTION: CT ABD/PELVIS ORAL ONLY COMPLETED DATE/TIME: 06/19/2019 5:56 pm REASON FOR STUDY: epigastric pain, COMPARISON: CT abdomen pelvis 01/13/2019, 12/22/2018, 10/03/2018 TECHNIQUE: CT scan of the abdomen and pelvis performed without intravenous contrast. Patient drank oral contrast. Images reviewed with lung, soft tissue, and bone windows. Reconstructed coronal and s agittal MPR images reviewed. All images stored on PACS. All CT scanners at this facility use dose modulation, iterative reconstruction, and/or weight based d osing when appropriate to reduce radiation dose to as low as reasonably achievable (ALARA). [facility]: Dose Right [facility]: CareDose [facility]: Dose Right [facility]: Teradose 4D [facility]: Audioscribe RADIATION DOSE: 8mGy. LIMITATIONS: None. FINDINGS: On the current exam, there is marked distal esophageal wall thickening above a small hiata l hernia. Esophagitis along the distal 3rd of the esophagus is suspected. LOWER CHEST: Right basilar bandlike atelectasis. NON-CONTRASTED LIVER, SPLEEN, ADRENALS: Evaluation limited by lack of IV contrast. No identified sign ificant masses. PANCREAS: No masses. No peripancreatic inflammatory changes. GALLBLADDER: Surgically absent RIGHT KIDNEY AND URETER: No suspicious masses. Assessment limited by lack of IV contrast. No signif icant calcifications. No hydronephrosis or hydroureter. LEFT KIDNEY AND URETER: No suspicious masses. Assessment limited by lack of IV contrast. No signifi cant calcifications. No hydronephrosis or hydroureter. AORTA AND RETROPERITONEUM: No aneurysm. No retroperitoneal masses or adenopathy. Calcified retroperi toneal phleboliths are present BOWEL AND PERITONEAL CAVITY: Patient drank oral contrast. No CT evidence of bowel obstruction. No f ree intraperitoneal air or fluid. APPENDIX: Normal. PELVIS, BLADDER, AND ABDOMINAL WALL:No abnormal masses. No free fluid. Bladder normal. Normal size f emale pelvic organs BONES: No significant findings. OTHER: No other significant finding. IMPRESSION: Right basilar atelectasis Market thickening of the distal esophagus worrisome for esophagitis COMMENT: Quality ID # [id number]: Final reports with documentation of one or more dose reduction techniques (e.g., Automated exposure control, adjustment of the mA and/or kV according to patient size, use of iterative reconstruction technique) TECHNICAL DOCUMENTATION: JOB ID: [id number] [employer]- All Rights Reserved Reading location - IP/workstation name: [email or web address]
--- NOTE | 2019-06-19 19:06 | Progress Note ---
Provider Note Provider Note: CARDIOLOGY PROGRESS note by Dr. Buffy Guajardo on 06/19/2019. OBJECTIVE: The patient continues to be agitated and keeps twisting her body around in the bed. She still complains of abdominal pain. She denies any chest pain. She does not appear to be short of breath. She has been evaluated by milvia Vieyra and has been prescribed BuSpar. Her heart rate is in the 90s to the 100s, there is no recurrence of atrial or ventricular tachycardia. PHYSICAL EXAMINATION: The patient is mildly obese. At present seems to be slightly agitated. Selected Entries 06/19/19 07:48 Temperature 98.1 F Temperature Oral Source Pulse Rate 97 Respiratory 18 Rate Blood Pressure 122/57 L Blood Pressure 78 Mean BP Location Left Arm BP Position Supine O2 Sat by Pulse 98 Oximetry Oxygen Delivery Room Air Method HEAD: Is atraumatic normocephalic. EYES: Pupils are equal round regular reactive to light and accommodation. Extraocular movements are normal. There is no conjunctival pallor. There is no scleral icterus. EARS: Tympanic membranes are intact. External auditory canals are clear. NOSE: There is no deviated nasal septum. There is no inflammation nasal mucous membrane. MOUTH: Mucous membranes of the mouth are moist. Tongue is moist. There is no ulcers. There is no bleeding from the gums. THROAT: There is no redness of the oropharynx. There is no exudates. SKIN: There is no skin lesion rashes. There is no petechia or ecchymosis. NECK: Is supple. There is no JVD. Carotids are equal there is no bruit there is no lymphadenopathy. There is no goiter. There is no accessory muscle respiration use. Trachea central. LUNGS: Is clear to auscultation percussion without any rhonchi rales or wheezing. On palpation there is no chest wall tenderness. HEART: S1-S2 is heard. There is no S3 gallop. There is no S4 gallop. There is no S3 gallop. There is systolic murmur in the left sternal border and the apex. There is no rub. ABDOMEN: Soft nontender there is no paraspinal megaly. In spite of the patient complains of epigastric pain palpation reveals no reproducible symptoms and the patient remains without any response to deep palpation. There is no rebound guarding or rigidity. Bowel sounds are well heard. EXTREMITIES: Femorals are well felt. There is no femoral bruits. Leg pulses well felt. There is no DVT or cellulitis. There is no pedal edema. There is no calf tenderness. There is no cyanosis or clubbing. SANDFILL OPERATOR SURFACE: The patient is conscious slightly withdrawn with no focal deficits. PSYCHIATRIC: The patient does appear to be withdrawn. Unable to make further psych exam. Labs- All tests 24 hr 06/19/19 06/19/19 06/19/19 06:09 06:09 07:48 WBC 8.0 RBC 4.55 Hgb 11.9 L Hct 35.9 L MCV 79 L MCH 26.2 L MCHC 33.3 RDW 17.4 H Plt Count 345 Sodium Potassium Chloride Carbon Dioxide Anion Gap BUN Creatinine Est GFR ( Amer) Est GFR (MDRD) Non-Af Glucose POC Glucose 158 H Calcium Magnesium 1.6 Troponin I 06/19/19 06/19/19 06/19/19 11:55 12:11 12:11 WBC RBC Hgb Hct MCV MCH MCHC RDW Plt Count Sodium 132.9 L Potassium 4.0 Chloride 99 Carbon Dioxide 21 L Anion Gap 13 BUN 14 Creatinine 0.97 Est GFR ( Amer) > 60 Est GFR (MDRD) Non-Af > 60 Glucose 163 H POC Glucose 169 H Calcium 9.8 Magnesium Troponin I 0.139 06/19/19 06/19/19 16:16 21:24 WBC RBC Hgb Hct MCV MCH MCHC RDW Plt Count Sodium Potassium Chloride Carbon Dioxide Anion Gap BUN Creatinine Est GFR ( Amer) Est GFR (MDRD) Non-Af Glucose POC Glucose 141 H 128 H Calcium Magnesium Troponin I Head CT 06/16/19 22:01 IMPRESSION: No acute intracranial abnormality is identified. Acute Abdomen Series 06/17/19 02:21 IMPRESSION: No bowel obstruction. Abdomen/Pelvis CT 06/19/19 00:00 IMPRESSION: Right basilar atelectasis Market thickening of the distal esophagus worrisome for esophagitis IMPRESSION/ ,RECOMMENDATION: 1. Elevated troponin: This is secondary to a combination of uncontrolled hypertension, tachycardia sinus and atrial tachycardia. Would continue beta- blockers. Trend the patient's troponin. Later would recommend IV Lexiscan Cardiolite stress test. The patient does have multiple CAD risk factors namely age, and family history of coronary artery disease and hypertension. Unfortunately with the patient's current condition the patient will not sit still for Lexiscan Cardiolite stress test and she will not cooperate for this. Also she would be a high risk for cardiac catheterization since again she will not cooperate. Hence the only option is to treat the patient medically. Would increase the patient's beta-stefanie. Would avoid nitrates in view of the IHSS. We will discuss this with the hospitalist attending provider. Troponin is trending down. 2. Tachycardia: This is a combination of sinus tachycardia with short ME interval and atrial tachycardia. Will continue beta-blockers. 3. Chest tightness: Most likely related to uncontrolled hypertension, and IHSS.. But later would recommend the patient have IV Lexiscan Cardiolite stress test in view of the patient does have several risk factors for coronary artery disease. 4.. Uncontrolled hypertension: Blood pressure much improved. But still not optimally controlled. Increase antihypertensives. 5. Severe anxiety: Psychiatric consult awaited. 6. Bipolar disorder: Psychiatric evaluation noted the patient has been started on BuSpar. 7. Diabetes mellitus: Continue antidiabetic medication. 8. Abdominal pain most likely functional. But the patient does have a history of GERD and hiatal hernia. She also has Hemoccult positive stools. 9. Acute renal failure.? Etiology. This is resolved. The patient's GFR is now greater than 60. Medications reviewed. Medical regimen and management plan discussed with attending provider on the case. The option with this patient is treated medically since she would not cooperate for stress test, and also she would not cooperate for cardiac catheterization which would end up with high complications. Will revisit these options if the patient's psychiatric medication taken and the patient comes back to normal psychiatric state. Medical decision making is of high complexity. 40 minutes spent as patient with more than 50% of time spent in direct patient care. Will follow.
[2019-06-19] MEDS: DULOXETINE HCL 20 MG CAPSULE.DR PO SCH (21:21)
[2019-06-19] MEDS: AMLODIPINE BESYLATE 10 MG TABLET PO SCH (21:22)
[2019-06-19] MEDS: DICYCLOMINE HCL 10 MG CAPSULE PO PRN (22:11)
[2019-06-20] MEDS: NORMAL SALINE 1000 ML 1,000 ML IV PRN (00:49)
[2019-06-20] MEDS: HYDRALAZINE HCL INJ/PF 20 MG/1 ML SDV IV PRN (01:08)
[2019-06-20] MEDS: MORPHINE SULFATE 10 MG/ML INJ IV PRN (03:59)
[2019-06-20 04:40] LABS: HEMATOCRIT 39.1 % (36.0-47.0); HEMOGLOBIN 12.9 g/dL (12.0-15.5); MEAN CORPUSCULAR HEMOGLOBIN 26.4 pg (27.0-33.4); MEAN CORPUSCULAR HGB CONC 33.1 g/dL (32.0-36.0); MEAN CORPUSCULAR VOLUME 80 fl (80-97); PLATELET COUNT 316 10^3/uL (150-450); RED CELL DISTRIBUTION WIDTH 17.3 % (11.5-14.0)
[2019-06-20] MEDS: PANTOPRAZOLE SODIUM 40 MG TABLET.DR PO SCH ×2 (05:45→16:55)
[2019-06-20] MEDS ORDERED: HUM INSULIN NPH/REG INSULIN HM 100 UNIT/1 ML 3 ML SUBCUT SCH (08:00)
[2019-06-20] MEDS ORDERED: NORMAL SALINE 1000 ML 1,000 ML IV PRN (08:36)
[2019-06-20] MEDS ORDERED: INSULIN GLARGINE,HUM.REC.ANLOG 1,000 UNIT/10 ML VIAL SUBCUT SCH (10:00)
[2019-06-20] MEDS: METOPROLOL SUCCINATE 50 MG TAB.SR.24H PO SCH ×2 (10:09→21:35)
[2019-06-20] MEDS: DULOXETINE HCL 20 MG CAPSULE.DR PO SCH ×2 (10:09→21:34)
[2019-06-20] MEDS: DOCUSATE SODIUM 100 MG CAPSULE PO SCH ×2 (10:09→17:04)
[2019-06-20] MEDS: BUSPIRONE HCL 10 MG TABLET PO SCH ×2 (10:09→17:04)
[2019-06-20] MEDS: INSULIN GLARGINE,HUM.REC.ANLOG 1,000 UNIT/10 ML VIAL SUBCUT SCH (10:09)
[2019-06-20] MEDS: SUCRALFATE 1 GM TABLET PO SCH ×4 (10:09→21:34)
[2019-06-20] MEDS: INSULIN REG, HUMAN 100 UNIT/ML 3 ML VIAL (PYX) SUBCUT SCH ×3 (10:10→16:56)
--- NOTE | 2019-06-20 11:20 | Progress Note ---
Provider Note Provider Note: CARDIOLOGY PROGRESS NOTE by Dr. Buffy Guajardo on 06/20/2019. SUBJECTIVE: With the current treatment the patient's psychiatric status is taking a remarkable change for the good. Her psychiatric exam appears to be normal. She is not agitated or distressed. She is not anxious. She denies any chest pain or discomfort. There is no PND or orthopnea. There is no recurrence of atrial arrhythmia. She denies any chest pain or abdominal pain. Her blood pressures well controlled, but still room for increasing beta-blockers. PHYSICAL EXAMINATION: The patient mildly obese. In no acute distress. Selected Entries 06/20/19 08:14 Temperature 97.8 F Temperature Axillary Source Pulse Rate 97 Respiratory 16 Rate Blood Pressure 132/66 H Blood Pressure 88 Mean BP Location Left Arm BP Position Supine O2 Sat by Pulse 98 Oximetry Oxygen Delivery Room Air Method HEAD: Is atraumatic normocephalic. EYES: Pupils are equal round regular reactive to light and accommodation. Extraocular movements are normal. There is no conjunctival pallor. There is no scleral icterus. EARS: Tympanic membranes are intact. External auditory canals are clear. NOSE: There is no deviated nasal septum. There is no inflammation nasal mucous membrane. MOUTH: Mucous membranes of the mouth are moist. Tongue is moist. There is no ulcers. There is no bleeding from the gums. THROAT: There is no redness of the oropharynx. There is no exudates. SKIN: There is no skin lesion rashes. There is no petechia or ecchymosis. NECK: Is supple. There is no JVD. Carotids are equal there is no bruit there is no lymphadenopathy. There is no goiter. There is no accessory muscle respiration use. Trachea central. LUNGS: Is clear to auscultation percussion without any rhonchi rales or wheezing. On palpation there is no chest wall tenderness. HEART: S1-S2 is heard. There is no S3 gallop. There is no S4 gallop. There is no S3 gallop. There is systolic murmur in the left sternal border and the apex. There is no rub. ABDOMEN: Soft nontender there is no paraspinal megaly. In spite of the patient complains of epigastric pain palpation reveals no reproducible symptoms and the patient remains without any response to deep palpation. There is no rebound guarding or rigidity. Bowel sounds are well heard. EXTREMITIES: Femorals are well felt. There is no femoral bruits. Leg pulses well felt. There is no DVT or cellulitis. There is no pedal edema. There is no calf tenderness. There is no cyanosis or clubbing. MANAGER WHOLESALE: The patient is conscious, awake alert and oriented x3, with no focal deficits. PSYCHIATRIC: Today the patient psychiatric exam is remarkably normal. Judgment and insight are intact. Her affect is normal. Labs- All tests 24 hr 06/19/19 06/20/19 06/20/19 21:24 04:06 04:06 WBC 8.0 RBC 4.90 Hgb 12.9 Hct 39.1 MCV 80 MCH 26.4 L MCHC 33.1 RDW 17.3 H Plt Count 316 POC Glucose 128 H Magnesium 1.6 Amylase Lipase 06/20/19 06/20/19 06/20/19 04:06 08:12 11:55 WBC RBC Hgb Hct MCV MCH MCHC RDW Plt Count POC Glucose 165 H 216 H Magnesium Amylase 118 H Lipase 340.2 H 06/20/19 15:58 WBC RBC Hgb Hct MCV MCH MCHC RDW Plt Count POC Glucose 181 H Magnesium Amylase Lipase Head CT 06/16/19 22:01 IMPRESSION: No acute intracranial abnormality is identified. Acute Abdomen Series 06/17/19 02:21 IMPRESSION: No bowel obstruction. Abdomen/Pelvis CT 06/19/19 00:00 IMPRESSION: Right basilar atelectasis Market thickening of the distal esophagus worrisome for esophagitis IMPRESSION/ ,RECOMMENDATION: 1. Elevated troponin: This is secondary to a combination of uncontrolled hypertension, tachycardia sinus and atrial tachycardia. Would continue beta- blockers. Trend the patient's troponin. This is most likely secondary to supply demand mismatch. This is due to the patient's elevated blood pressure, transient atrial tachycardia, and acute renal failure. No definite evidence of non-ST relation MT. The patient's echocardiogram is consistent with HOKUM. Hence was discussed with Dr. Peña in [place], interventional cardiology from [facility], would set up the patient for outpatient cardiac MRI to assess the significance of the hokum. This has been discussed with the patient. Will discharge the patient home tomorrow and have the patient follow-up with me. My contact numbers have been given. 2. Tachycardia: This is a combination of sinus tachycardia with short GA interval and atrial tachycardia. Will continue beta-blockers. No recurrence. 3. Chest tightness: Most likely related to uncontrolled hypertension, and IHSS.. But later would recommend the patient have IV Lexiscan Cardiolite stress test in view of the patient does have several risk factors for coronary artery disease. 4.. Uncontrolled hypertension: Blood pressure much improved. But still not optimally controlled. Increase antihypertensives. At present blood pressures well controlled. 5. Severe anxiety: Psychiatric consult. The patient is remarkable change in her psychiatric status with current medications. At present the psychiatric exam appears to be normal. 6. Bipolar disorder: Psychiatric evaluation noted the patient has been started on BuSpar. 7. Diabetes mellitus: Continue antidiabetic medication. 8. Abdominal pain most likely functional. But the patient does have a history of GERD and hiatal hernia. She also has Hemoccult positive stools. There is no further recurrence. 9. Acute renal failure.? Etiology. This has resolved. The patient's GFR is now greater than 60. Medications reviewed. Medications adjusted. Medical regimen and management plan discussed with attending provider on the case. Medical decision making is of high complexity in view of the lengthy discussions regarding getting an outpatient cardiac MRI with the patient. The reason behind this has been explained to the patient in detail. Also her medications have been increased. Medical decision making is of high complexity. 40 minutes spent on the patient with more than 50% of time spent in direct patient care. Most likely patient will be discharged home tomorrow..
[2019-06-20] MEDS: OXYCODONE-ACETAMINOPHEN 5-325 MG TABLET PO PRN ×2 (12:45→19:18)
[2019-06-20] MEDS ORDERED: CLONIDINE HCL 0.1 MG TABLET PO PRN (12:52)
--- NOTE | 2019-06-20 14:47 | PDOC PROGRESS REPORT ---
Subjective Progress Note for:: 06/20/19 Reason For Visit: TACHYCARDIA, HYPERTENSION, GUAIAC POSITIVE STOOL 06/20/2019 Chest pain, tachycardia, hypertension, anxiety, esophagitis Physical Exam Vital Signs: Temp Pulse Resp BP Pulse Ox 97.8 F 97 16 132/66 H 98 06/20/19 08:14 06/20/19 08:14 06/20/19 08:14 06/20/19 08:14 06/20/19 08:14 Intake & Output 06/19/19 06/20/19 06/21/19 06:59 06:59 06:59 Intake Total 3150 1310 998 Output Total 800 3100 Balance 2350 -1790 998 Weight 71.6 kg 72.5 kg General appearance: PRESENT: mild distress, other - Patient states she is feeling better Respiratory exam: PRESENT: clear to auscultation bernardo. ABSENT: rales, rhonchi, wheezes Cardiovascular exam: PRESENT: tachycardia GI/Abdominal exam: PRESENT: normal bowel sounds, soft, other - She is asking for regular food. ABSENT: distended, guarding, mass, organolmegaly, rebound, tenderness Neurological exam: PRESENT: alert, awake, oriented to person, oriented to place, oriented to time, oriented to situation, CN II-XII grossly intact. ABSENT: motor sensory deficit Psychiatric exam: PRESENT: appropriate affect, normal mood. ABSENT: homicidal ideation, suicidal ideation Results Laboratory Results: 06/20/19 04:06 06/19/19 12:11 06/20/19 06/20/19 06/20/19 04:06 04:06 04:06 WBC 8.0 RBC 4.90 Hgb 12.9 Hct 39.1 MCV 80 MCH 26.4 L MCHC 33.1 RDW 17.3 H Plt Count 316 Magnesium 1.6 Amylase 118 H Lipase 340.2 H 06/16/19 06/17/19 06/17/19 19:01 00:15 13:44 Creatine Kinase 336 H CK-MB (CK-2) Troponin I 0.028 0.021 06/17/19 06/17/19 06/17/19 13:44 18:12 18:12 Creatine Kinase 357 H CK-MB (CK-2) 3.21 Troponin I 0.155 0.460 06/17/19 06/17/19 06/18/19 20:53 20:55 04:55 Creatine Kinase 379 H 389 H CK-MB (CK-2) 5.41 H Troponin I 0.574 06/18/19 06/19/19 04:55 12:11 Creatine Kinase CK-MB (CK-2) 4.62 H Troponin I 0.317 0.139 Impressions: Head CT 06/16/19 22:01 IMPRESSION: No acute intracranial abnormality is identified. Acute Abdomen Series 06/17/19 02:21 IMPRESSION: No bowel obstruction. Abdomen/Pelvis CT 06/19/19 00:00 IMPRESSION: Right basilar atelectasis Market thickening of the distal esophagus worrisome for esophagitis Assessment and Plan - Diagnosis (1) Bipolar disorder Qualifiers: Active/Remission status: remission status unspecified Qualified Code(s): F31.9 - Bipolar disorder, unspecified Is this a current diagnosis for this admission?: Yes (2) Diabetes mellitus type 2 in obese Is this a current diagnosis for this admission?: Yes (3) Generalized anxiety disorder Is this a current diagnosis for this admission?: Yes (4) Hypertensive urgency Is this a current diagnosis for this admission?: Yes (5) Occult blood positive stool Is this a current diagnosis for this admission?: Yes (6) Abdominal pain Qualifiers: Is this a current diagnosis for this admission?: Yes (7) Chest pain Is this a current diagnosis for this admission?: Yes (8) Esophagitis Is this a current diagnosis for this admission?: Yes - Plan Summary Summary: Patient will be admitted to the medical floor in a telemetry bed where she will receive routine supportive and symptomatic cares. She will be treated with IV Thorazine 25 mg IV every 4 hours for agitation and restlessness. She will be treated with IV Valium 10 mg every 4 hours as needed for anxiety. A gastroenterology consultation with Dr. Rogers and a psychology consultation with Oseas Downs will be obtained. Patient will be treated aggressively to resolve her hypertension with both oral therapy utilizing metoprolol and IV therapy utilizing hydralazine. Patient will be continued on her usual diabetic and cardiac diet as well as her regular home medications as appropriate. Before meals and at bedtime Accu-Cheks will be obtained and sliding scale insulin be used for hyperglycemia with a hypoglycemic protocol in place. Laboratory evaluations including a CBC, metabolic profiles and magnesium levels will be obtained as needed. 06/18/2019 Vital signs are stable although at times when patient is complaining of epiga stric pain her blood pressures up in the 180s systolic. Average blood pressure looks like it is around 130/76 pulse rate is anywhere from 115-152, oxygen saturations 99% on room air. Labs show her BUN is gone up to 27 creatinine is gone up to 1.92. Will add IV fluids maintenance. A1c is elevated at 9.2 Troponins have been up and down which is felt to be due to factors other than cardiac ischemia, typically uncontrolled hypertension, tachycardia. Agree with cardiology consult and will recommend a IV Nubia scan Cardiolite stress test as soon as patient's anxiety disorder becomes stabilized Patient started having epigastric pain almost immediately after eating a banana this morning. I am going to address this with medications other than narcotics. Does get relief from nitro sublingual and a very low dose of morphine. Think she is probably having a component of esophageal spasm from her GERD which the nitro covers, course the morphine is self-explanatory Hemoglobin has remained stable on admission 12.9 it is now 11.1 Going to repeat a stool check for blood. Await psych recommendations concerning antianxiety medications. I will order Carafate as well as Bentyl. Continue the beta-stefanie. Watch patient closely. 06/19/2019 Heart rates now have actually come down into the 90s, which may be due to the Toprol 50 mg every 12 hours Pressures appear to have stabilized around 130/70, which is probably secondary to the Norvasc 10 mg nightly O2 saturations are in the upper 90s on room air We will continue the Bentyl and Carafate. I have reorder her Cymbalta Initiated BuSpar 5 mg twice daily per psychiatry UnFortunately due to patient's IHSS on her echocardiogram she is not a good anesthesia risk therefore will not be able to do the upper endoscopy. If patient's abdominal pain persist would recommend she have this done at a Medical Center. Patient has multiple emergency room visits for abdominal pain. Instead I will order a CT scan of the abdomen and pelvis with oral contrast only. I have discontinued her IV narcotics, changed her to p.o. Percocet every 4 hours as needed 06/20/2019 CT scan of the abdomen and pelvis shows significant esophagitis Since package delivery driver who is seen her while she is in the hospital has recommend that we do further studies as an outpatient His lipase this morning was basically normal value of 340 amylase was elevated at 118. She has had her gallbladder removed CBC is normal At this point I am going to feed her today and if she does well discharge her in the morning on the medication she is taking here in the hospital I will have cardiology recommend her outpatient studies at [facility] Patient is on no IV pain medication - Time Time Spent with patient: 25-34 minutes
[2019-06-20] MEDS: MAG HYDROX/AL HYDROX/SIMETH SUSP 30 ML UDCUP PO PRN (19:18)
[2019-06-20] MEDS: AMLODIPINE BESYLATE 10 MG TABLET PO SCH (21:34)
[2019-06-21] MEDS: OXYCODONE-ACETAMINOPHEN 5-325 MG TABLET PO PRN (03:43)
[2019-06-21] MEDS: MAG HYDROX/AL HYDROX/SIMETH SUSP 30 ML UDCUP PO PRN (03:45)
[2019-06-21] MEDS: INSULIN REG, HUMAN 100 UNIT/ML 3 ML VIAL (PYX) SUBCUT SCH ×3 (05:37→12:20)
[2019-06-21] MEDS: PANTOPRAZOLE SODIUM 40 MG TABLET.DR PO SCH (05:38)
[2019-06-21] MEDS: METOPROLOL SUCCINATE 50 MG TAB.SR.24H PO SCH (09:05)
[2019-06-21] MEDS: DOCUSATE SODIUM 100 MG CAPSULE PO SCH (09:05)
[2019-06-21] MEDS: DULOXETINE HCL 20 MG CAPSULE.DR PO SCH (09:05)
[2019-06-21] MEDS: BUSPIRONE HCL 10 MG TABLET PO SCH (09:05)
[2019-06-21] MEDS: SUCRALFATE 1 GM TABLET PO SCH ×2 (09:06→12:19)
[2019-06-21] MEDS: INSULIN GLARGINE,HUM.REC.ANLOG 1,000 UNIT/10 ML VIAL SUBCUT SCH (09:06)
[2019-06-21] MEDS ORDERED: CLONIDINE 0.2 MG/24 HR PATCH.TDWK TOP SCH (10:00)
[2019-06-21] MEDS ORDERED: INFLUENZA QUAD (6MOS+) 2019-20 VAC 0.5 ML SYR IM ONE (13:10)
[2019-06-21 13:30] VITALS: BP 190/100
--- NOTE | 2019-06-30 12:53 | PDOC DISCHARGE SUMMARY ---
Impression - Admit/DC Date/PCP Admission Date/Primary Care Provider: 06/17/19 03:29 GLEN MCGRATH PA-C Discharge Date: 06/21/19 - Discharge Diagnosis (1) Bipolar disorder Is this a current diagnosis for this admission?: Yes (2) Diabetes mellitus type 2 in obese Is this a current diagnosis for this admission?: Yes (3) Generalized anxiety disorder Is this a current diagnosis for this admission?: Yes (4) Hypertensive urgency Is this a current diagnosis for this admission?: Yes (5) Occult blood positive stool Is this a current diagnosis for this admission?: Yes (6) Abdominal pain Is this a current diagnosis for this admission?: Yes (7) Chest pain Is this a current diagnosis for this admission?: Yes (8) Esophagitis Is this a current diagnosis for this admission?: Yes - Assessment Summary: Patient will be admitted to the medical floor in a telemetry bed where she will receive routine supportive and symptomatic cares. She will be treated with IV Thorazine 25 mg IV every 4 hours for agitation and restlessness. She will be treated with IV Valium 10 mg every 4 hours as needed for anxiety. A gastroenterology consultation with Dr. Rogers and a psychology consultation with Oseas Downs will be obtained. Patient will be treated aggressively to resolve her hypertension with both oral therapy utilizing metoprolol and IV therapy utilizing hydralazine. Patient will be continued on her usual diabetic and cardiac diet as well as her regular home medications as appropriate. Before meals and at bedtime Accu-Cheks will be obtained and sliding scale insulin be used for hyperglycemia with a hypoglycemic protocol in place. Laboratory evaluations including a CBC, metabolic profiles and magnesium levels will be obtained as needed. 06/18/2019 Vital signs are stable although at times when patient is complaining of epigastric pain her blood pressures up in the 180s systolic. Average blood pressure looks like it is around 130/76 pulse rate is anywhere from 115-152, oxygen saturations 99% on room air. Labs show her BUN is gone up to 27 creatinine is gone up to 1.92. Will add IV fluids maintenance. A1c is elevated at 9.2 Troponins have been up and down which is felt to be due to factors other than cardiac ischemia, typically uncontrolled hypertension, tachycardia. Agree with cardiology consult and will recommend a IV Nubia scan Cardiolite stress test as soon as patient's anxiety disorder becomes stabilized Patient started having epigastric pain almost immediately after eating a banana this morning. I am going to address this with medications other than narcotics. Does get relief from nitro sublingual and a very low dose of morphine. Think she is probably having a component of esophageal spasm from her GERD which the nitro covers, course the morphine is self-explanatory Hemoglobin has remained stable on admission 12.9 it is now 11.1 Going to repeat a stool check for blood. Await psych recommendations concerning antianxiety medications. I will order Carafate as well as Bentyl. Continue the beta-stefanie. Watch patient closely. 06/19/2019 Heart rates now have actually come down into the 90s, which may be due to the Toprol 50 mg every 12 hours Pressures appear to have stabilized around 130/70, which is probably secondary to the Norvasc 10 mg nightly O2 saturations are in the upper 90s on room air We will continue the Bentyl and Carafate. I have reorder her Cymbalta Initiated BuSpar 5 mg twice daily per psychiatry UnFortunately due to patient's IHSS on her echocardiogram she is not a good anesthesia risk therefore will not be able to do the upper endoscopy. If patient's abdominal pain persist would recommend she have this done at a Medical Center. Patient has multiple emergency room visits for abdominal pain. Instead I will order a CT scan of the abdomen and pelvis with oral contrast only. I have discontinued her IV narcotics, changed her to p.o. Percocet every 4 hours as needed 06/20/2019 CT scan of the abdomen and pelvis shows significant esophagitis Since puff ironer who is seen her while she is in the hospital has recommend that we do further studies as an outpatient His lipase this morning was basically normal value of 340 amylase was elevated at 118. She has had her gallbladder removed CBC is normal At this point I am going to feed her today and if she does well discharge her in the morning on the medication she is taking here in the hospital I will have cardiology recommend her outpatient studies at [facility] Patient is on no IV pain medication 06/21/2019 Being discharged home today on multiple medications primarily psychiatric Also been sent home on Carafate until use bar and a 3-day supply of Percocet 09/26/2024. As well as Toprol 5 mg daily and Protonix 40 mg twice daily Her diagnosis is bipolar disease, diabetes, anxiety, hypertension, occult blood positive stool, hemorrhoids, abdominal pain, chest pain, esophagitis She is to follow-up with her psychiatrist as well as GI for upper endoscopy - Additional Information Resuscitation Status: Full Code Discharge Diet: Full Liquids Discharge Activity: Balance Activity w/Rest Referrals: GLEN MCGRATH PA-C [Primary Care Provider] - 06/29/19 2:15 pm Prescriptions: Dicyclomine HCl [Bentyl 10 mg Capsule] 10 mg PO QIDP PRN 30 Days #120 capsule PRN Reason: Buspirone HCl [Buspar 10 mg Tablet] 5 mg PO BID 30 Days #60 tablet Sucralfate [Carafate 1 gm Tablet] 1 gm PO ACHS 30 Days bottle Clonidine [Catapres-Tts 2 (0.2 mg/24 Hr) Transderm Ptch] 1 each TOP DIALLO@1000 30 Days #4 patch.tdwk Insulin Glargine,Hum.rec.anlog [Lantus Insulin 100 Unit/1 ml 10 ml] 30 unit SUBCUT DAILY 30 Days #1 unit Nitroglycerin [Nitrostat 0.4 mg (1/150 Gr) Tabs 25/Bottle] 1 tab SL Q5MP PRN 30 Days #1 bottle PRN Reason: Oxycodone HCl/Acetaminophen [Percocet 5-325 mg Tablet] 1 tab PO Q6HP PRN 3 Days #12 tablet PRN Reason: Oxycodone HCl/Acetaminophen [Percocet 5-325 mg Tablet] 1 tab PO ASDIR PRN 3 Days #15 tab PRN Reason: Pantoprazole Sodium [Protonix [address] Tablet] 40 mg PO BID@0600,1700 30 Days #60 tablet.dr Metoprolol Succinate [Toprol Xl 50 mg Tab.sr] 75 mg PO Q12 45 Days #60 tab.sr.2 4h Home Medications: Amitriptyline HCl [Elavil 25 mg Tablet] 25 mg PO QHS 06/17/19 Amlodipine Besylate [Norvasc 10 mg Tablet] 10 mg PO DAILY 06/17/19 Duloxetine HCl [Cymbalta 20 mg Capsule.dr] 20 mg PO BID 06/17/19 Hydroxyzine HCl [Atarax 25 mg Tablet] 25 mg PO Q8HP PRN 06/17/19 Insulin Aspart [Novolog Flexpen] 0 unit SUBCUT .SLD SCALE MDD 50 UNITS 06/17/19 Phenobarbital [Phenobarbital 20 mg/5 ml Elixir Udcup] 5 ml PO BIDP PRN 06/17/19 Rosuvastatin Calcium [Crestor] 40 mg PO DAILY 06/17/19 Buspirone HCl [Buspar 10 mg Tablet] 5 mg PO BID 30 Days #60 tablet 06/21/19 Clonidine [Catapres-Tts 2 (0.2 mg/24 Hr) Transderm Ptch] 1 each TOP DIALLO@1000 30 Days #4 patch.tdwk 06/21/19 Dicyclomine HCl [Bentyl 10 mg Capsule] 10 mg PO QIDP PRN 30 Days #120 capsule 06/21/19 Docusate Sodium [Colace 100 mg Capsule] 100 mg PO BID capsule 06/21/19 Insulin Glargine,Hum.rec.anlog [Lantus Insulin 100 Unit/1 ml 10 ml] 30 unit SUBCUT DAILY 30 Days #1 unit 06/21/19 Metoprolol Succinate [Toprol Xl 50 mg Tab.sr] 75 mg PO Q12 45 Days #60 tab.sr.24h 06/21/19 Nitroglycerin [Nitrostat 0.4 mg (1/150 Gr) Tabs 25/Bottle] 1 tab SL Q5MP PRN 30 Days #1 bottle 06/21/19 Oxycodone HCl/Acetaminophen [Percocet 5-325 mg Tablet] 1 tab PO ASDIR PRN 3 Days #15 tab 06/21/19 Oxycodone HCl/Acetaminophen [Percocet 5-325 mg Tablet] 1 tab PO Q6HP PRN 3 Days #12 tablet 06/21/19 Pantoprazole Sodium [Protonix [address] Tablet] 40 mg PO BID@0600,1700 30 Days #60 tablet.dr 06/21/19 Sucralfate [Carafate 1 gm Tablet] 1 gm PO ACHS 30 Days bottle 06/21/19 History of Present Illiness History of Present Illness: RUTH CA is a 44 year old female Physical Exam Vital Signs: Temp Pulse Resp BP Pulse Ox 98.2 F 84 16 190/100 H 99 06/21/19 13:27 06/21/19 13:27 06/21/19 13:27 06/21/19 13:27 06/21/19 13:27 Results Laboratory Results: WBC 8.0 10^3/uL (4.0-10.5) 06/20/19 04:06 RBC 4.90 10^6/uL (3.72-5.28) 06/20/19 04:06 Hgb 12.9 g/dL (12.0-15.5) 06/20/19 04:06 Hct 39.1 % (36.0-47.0) 06/20/19 04:06 MCV 80 fl (80-97) 06/20/19 04:06 MCH 26.4 pg (27.0-33.4) L 06/20/19 04:06 MCHC 33.1 g/dL (32.0-36.0) 06/20/19 04:06 RDW 17.3 % (11.5-14.0) H 06/20/19 04:06 Plt Count 316 10^3/uL (150-450) 06/20/19 04:06 Lymph % (Auto) 10.7 % (13-45) L 06/17/19 00:15 [place] % (Auto) 9.3 % (3-13) 06/17/19 00:15 Eos % (Auto) 0.1 % (0-6) 06/17/19 00:15 Baso % (Auto) 0.3 % (0-2) 06/17/19 00:15 Absolute Neuts (auto) 13.9 10^3/uL (1.7-8.2) H 06/17/19 00:15 Absolute Lymphs (auto) 1.9 10^3/uL (0.5-4.7) 06/17/19 00:15 Absolute Monos (auto) 1.6 10^3/uL (0.1-1.4) H 06/17/19 00:15 Absolute Eos (auto) 0.0 10^3/uL (0.0-0.6) 06/17/19 00:15 Absolute Basos (auto) 0.1 10^3/uL (0.0-0.2) 06/17/19 00:15 Seg Neutrophils % 79.6 % (42-78) H 06/17/19 00:15 VBG pH 7.49 (7.30-7.42) H 06/16/19 19:01 VBG pCO2 29.6 mmHg (35-63) L 06/16/19 19:01 VBG HCO3 22.2 mmol/L (20-32) 06/16/19 19:01 VBG Base Excess -0.1 mmol/L 06/16/19 19:01 Sodium 132.9 mmol/L (137-145) L 06/19/19 12:11 Potassium 4.0 mmol/L (3.6-5.0) 06/19/19 12:11 Chloride 99 mmol/L (98-107) 06/19/19 12:11 Carbon Dioxide 21 mmol/L (22-30) L 06/19/19 12:11 Anion Gap 13 (5-19) 06/19/19 12:11 BUN 14 mg/dL (7-20) 06/19/19 12:11 Creatinine 0.97 mg/dL (0.52-1.25) 06/19/19 12:11 Est GFR ( Amer) > 60 (>60) 06/19/19 12:11 Est GFR (MDRD) Non-Af > 60 (>60) 06/19/19 12:11 Glucose 163 mg/dL (75-110) H 06/19/19 12:11 POC Glucose 210 mg/dL (70-110) H 06/21/19 12:14 Hemoglobin A1c % 9.2 % (4.7-6.0) H 06/18/19 04:55 Calcium 9.8 mg/dL (8.4-10.2) 06/19/19 12:11 Magnesium 1.6 mg/dL (1.6-2.3) 06/20/19 04:06 Total Bilirubin 0.7 mg/dL (0.2-1.3) 06/18/19 04:55 Direct Bilirubin 0.4 mg/dL (0.0-0.4) 06/18/19 04:55 Neonat Total Bilirubin Not Reportable 06/18/19 04:55 Neonat Direct Bilirubin Not Reportable 06/18/19 04:55 Neonat Indirect Bili Not Reportable 06/18/19 04:55 AST 35 U/L (14-36) 06/18/19 04:55 ALT 20 U/L (<35) 06/18/19 04:55 Alkaline Phosphatase 109 U/L (38-126) 06/18/19 04:55 Creatine Kinase 389 U/L (30-135) H 06/18/19 04:55 CK-MB (CK-2) 4.62 ng/mL (<4.55) H 06/18/19 04:55 Troponin I 0.139 ng/mL 06/19/19 12:11 Total Protein 6.9 g/dL (6.3-8.2) 06/18/19 04:55 Albumin 3.8 g/dL (3.5-5.0) 06/18/19 04:55 Amylase 118 U/L (30-110) H 06/20/19 04:06 Lipase 340.2 U/L (23-300) H 06/20/19 04:06 TSH 0.37 uIU/mL (0.47-4.68) L 06/17/19 00:15 Free T4 1.38 ng/dL (0.78-2.19) 06/17/19 13:44 Free T3 pg/mL 3.81 pg/mL (2.77-5.27) 06/17/19 00:15 Urine Color STRAW 06/16/19 19:01 Urine Appearance CLEAR 06/16/19 19:01 Urine pH 6.0 (5.0-9.0) 06/16/19 19:01 Ur Specific [place] 1.029 06/16/19 19:01 Urine Protein 30 mg/dL (NEGATIVE) H 06/16/19 19:01 Urine Glucose (UA) >=500 mg/dL (NEGATIVE) H 06/16/19 19:01 Urine Ketones 20 mg/dL (NEGATIVE) H 06/16/19 19:01 Urine Blood NEGATIVE (NEGATIVE) 06/16/19 19:01 Urine Nitrite (Reflex) NEGATIVE (NEGATIVE) 06/16/19 19:01 Urine Bilirubin NEGATIVE (NEGATIVE) 06/16/19 19:01 Urine Urobilinogen NEGATIVE mg/dL (<2.0) 06/16/19 19:01 Leukocyte Esterase Rfl NEGATIVE (NEGATIVE) 06/16/19 19:01 Urine WBC (Reflex) 1 /HPF 06/16/19 19:01 Squamous Epi Cells Auto 1 /HPF 06/16/19 19:01 Urine Mucus (Auto) RARE /LPF 06/16/19 19:01 Urine Ascorbic Acid NEGATIVE (NEGATIVE) 06/16/19 19:01 Urine HCG, Qual NEGATIVE (NEGATIVE) 06/16/19 19:01 POC Stool Occult Blood POSITIVE (NEGATIVE) 06/16/19 23:50 Salicylates < 1.0 mg/dL (2.0-20.0) L 06/16/19 19:01 Urine Opiates Screen NEGATIVE 06/16/19 19:01 Urine Methadone Screen NEGATIVE 06/16/19 19:01 Acetaminophen < 10 ug/mL (10-30) L 06/16/19 19:01 Ur Barbiturates Screen NEGATIVE 06/16/19 19:01 Ur Phencyclidine Scrn NEGATIVE 06/16/19 19:01 Ur Amphetamines Screen NEGATIVE 06/16/19 19:01 U Benzodiazepines Scrn UNCONFIRMED POSITIVE 06/16/19 19:01 Urine Cocaine Screen NEGATIVE 06/16/19 19:01 U Marijuana (THC) Screen NEGATIVE 06/16/19 19:01 Serum Alcohol < 10 mg/dL (NONE DETECTED) 06/16/19 19:01 06/16/19 06/17/19 06/17/19 19:01 00:15 13:44 CK-MB (CK-2) 3.21 Troponin I 0.028 0.021 0.155 06/17/19 06/17/19 06/18/19 18:12 20:53 04:55 CK-MB (CK-2) 5.41 H 4.62 H Troponin I 0.460 0.574 0.317 06/19/19 12:11 CK-MB (CK-2) Troponin I 0.139 Impressions: Head CT 06/16/19 22:01 IMPRESSION: No acute intracranial abnormality is identified. Acute Abdomen Series 06/17/19 02:21 IMPRESSION: No bowel obstruction. Abdomen/Pelvis CT 06/19/19 00:00 IMPRESSION: Right basilar atelectasis Market thickening of the distal esophagus worrisome for esophagitis Stroke Is this a Stroke Patient?: No Acute Heart Failure - Is this a Heart Failure Patient?: No
== END 2019-06-21 14:26 | disposition home or self-care (01) | DRG 305 ==
LOC: ER 17:58 → EH 06-17 03:29 → 3S 06-17 06:50
PROVIDERS: ADMIT Emergency Medicine; ATTEND Emergency Medicine
DX: I16.0 Hypertensive urgency (principal); N17.9 Acute kidney failure, unspecified; I24.8 Other forms of acute ischemic heart disease; I10 Essential (primary) hypertension; R00.0 Tachycardia, unspecified; R19.5 Other fecal abnormalities; E78.5 Hyperlipidemia, unspecified; K44.9 Diaphragmatic hernia without obstruction or gangrene; E11.43 Type 2 diabetes mellitus with diabetic autonomic (poly)neuropathy; K31.84 Gastroparesis; F41.1 Generalized anxiety disorder; D64.9 Anemia, unspecified; R07.2 Precordial pain; E66.9 Obesity, unspecified; R11.15 Cyclical vomiting syndrome unrelated to migraine; I44.0 Atrioventricular block, first degree; E21.3 Hyperparathyroidism, unspecified; F31.70 Bipolar disorder, currently in remission, most recent episode unspecified; E78.00 Pure hypercholesterolemia, unspecified; K21.0 Gastro-esophageal reflux disease with esophagitis; Z68.30 Body mass index [BMI] 30.0-30.9, adult; Z91.19 Patient's noncompliance with other medical treatment and regimen; Z86.14 Personal history of Methicillin resistant Staphylococcus aureus infection; Z79.899 Other long term (current) drug therapy; Z79.4 Long term (current) use of insulin; Z88.8 Allergy status to other drugs, medicaments and biological substances; Z79.891 Long term (current) use of opiate analgesic; Z23 Encounter for immunization; Z97.4 Presence of external hearing-aid; Z83.3 Family history of diabetes mellitus; Z82.49 Family history of ischemic heart disease and other diseases of the circulatory system
CPT/HCPCS: 36415; 70450; 74022; 74176; 80048; 80053; 80307; 81001; 81025; 82150; 82330; 82550; 82553; 82803; 82962; 83036; 83690; 83735; 84439; 84443; 84481; 84484; 85025; 85027; 90686; 93005; 93010; 93306; 99291; J0153; J0360; J1815; J1885; J2060; J2270; J2550; J3230; J3360; J3490; J7030; S0028

== ENCOUNTER 2019-07-20 20:49 | Emergency (ER) | payer MEDICARE, MEDICAID ==
[2019-07-20] MEDS ORDERED: DIPHENHYDRAMINE HCL 50 MG/ML VIAL IV ONE (22:56)
[2019-07-20] MEDS ORDERED: HALOPERIDOL LACTATE INJ 5 MG/1 ML VIAL IV ONE (22:57)
[2019-07-20] MEDS ORDERED: MORPHINE SULFATE 10 MG/ML INJ IV ONE (22:58)
[2019-07-20] MEDS ORDERED: DEXTROSE 10%-WATER 1,000 ML IV ONE (23:35)
[2019-07-20] MEDS ORDERED: RINGERS SOLUTION,LACTATED 1,000 ML IV ONE (23:35)
[2019-07-20] MEDS ORDERED: FAMOTIDINE INJ/PF 20 MG/2 ML SDV IV ONE (23:40)
[2019-07-20 23:50] LABS: APPEARANCE,URINE CLEAR; BILIRUBIN,URINE NEGATIVE (NEGATIVE); COLOR,URINE YELLOW; GLUCOSE, URINE >=500 mg/dL (NEGATIVE); KETONES,URINE 80 mg/dL (NEGATIVE); LEUKOCYTE ESTERASE,URINE NEGATIVE (NEGATIVE); NITRITE,URINE NEGATIVE (NEGATIVE); PROTEIN,URINE 100 mg/dL (NEGATIVE); URINE SPECIFIC GRAVITY 1.029; UROBILINOGEN,URINE NEGATIVE mg/dL (<2.0)
[2019-07-21 00:08] LABS: ABSOLUTE LYMPHOCYTES (AUTO) 0.8 10^3/uL (0.5-4.7); ABSOLUTE MONOCYTES (AUTO) 0.5 10^3/uL (0.1-1.4); ABSOLUTE NEUT (AUTO) 10.3 10^3/uL (1.7-8.2); BASOPHILS % (AUTO) 0.2 % (0-2); HEMATOCRIT 37.3 % (36.0-47.0); MEAN CORPUSCULAR HGB CONC 32.2 g/dL (32.0-36.0); MEAN CORPUSCULAR VOLUME 78 fl (80-97); MONOCYTES % (AUTO) 4.5 % (3-13); PLATELET COUNT 346 10^3/uL (150-450); RED BLOOD COUNT 4.81 10^6/uL (3.72-5.28); RED CELL DISTRIBUTION WIDTH 15.8 % (11.5-14.0); SEGMENTED NEUTROPHILS % (AUTO) 88.3 % (42-78); TOTAL CELLS COUNTED % (AUTO) 100 %; WHITE BLOOD COUNT 11.7 10^3/uL (4.0-10.5)
[2019-07-21 00:24] LABS: ALBUMIN 4.6 g/dL (3.5-5.0); ALKALINE PHOSPHATASE 141 U/L (38-126); ASPARTATE AMINO TRANSFERASE 24 U/L (14-36); BILIRUBIN,DIRECT 0.2 mg/dL (0.0-0.4); BILIRUBIN,TOTAL 0.6 mg/dL (0.2-1.3); BLOOD UREA NITROGEN 14 mg/dL (7-20); CALCIUM 10.2 mg/dL (8.4-10.2); GLUCOSE 318 mg/dL (75-110); POTASSIUM 4.2 mmol/L (3.6-5.0); TOTAL PROTEIN 8.5 g/dL (6.3-8.2)
[2019-07-21 00:27] LABS: ACETAMINOPHEN < 10 ug/mL (10-30); ALCOHOL < 10 mg/dL (NONE DETECTED)
[2019-07-21 00:29] LABS: CARBON DIOXIDE 17 mmol/L (22-30); CHLORIDE 104 mmol/L (98-107)
[2019-07-21 00:40] LABS: ANION GAP 18 (5-19)
[2019-07-21] MEDS ORDERED: NORMAL SALINE 1000 ML 1,000 ML IV ONE (01:01)
--- NOTE | 2019-07-21 01:53 | RADIOLOGY REPORT (SQ) ---
Acute abdominal series on 07/21/2019 at 1:30 AM CLINICAL INDICATION: Generalized abdominal pain COMPARISON: Acute abdominal series on 06/17/[address] from 06/19/2019 FINDINGS: CHEST: The lungs are clear. Cardiac, hilar and mediastinal contours are within normal limits. Pulmonary vascularity is within normal limits. ABDOMEN: There is no free air. Bowel gas pattern is nonspecific. Calcifications in the lower abdomen and pelvis are consistent with phleboliths. No increased stool to suggest constipation is noted. No other abnormal calcification or mass effect is noted. No bony abnormality is noted. IMPRESSION: 1. No acute cardiopulmonary disease. 2. Nonspecific abdomen.
[2019-07-21 03:27] LABS: URINE AMPHETAMINES SCREEN NEGATIVE; URINE BARBITURATES SCREEN NEGATIVE; URINE BENZODIAZEPINES SCREEN NEGATIVE; URINE COCAINE SCREEN NEGATIVE; URINE MARIJUANA (THC) SCREEN NEGATIVE; URINE METHADONE SCREEN NEGATIVE; URINE PHENCYCLIDINE SCREEN NEGATIVE
[2019-07-21 04:40] LABS: ANION GAP 10 (5-19); BLOOD UREA NITROGEN 12 mg/dL (7-20); CALCIUM 9.2 mg/dL (8.4-10.2); CARBON DIOXIDE 21 mmol/L (22-30); CHLORIDE 109 mmol/L (98-107); GLUCOSE 231 mg/dL (75-110); POTASSIUM 4.4 mmol/L (3.6-5.0)
--- NOTE | 2019-07-21 05:30 | ER Document Report ---
Entered by JESIKA RANGEL SCRIBE 07/20/19 [id number] Acting as scribe for:DALILA MUJICA MD ED General - General Chief Complaint: Abdominal Pain Stated Complaint: ABDOMINAL PAIN Time Seen by Provider: 07/20/19 21:56 Primary Care Provider: GLEN MCGRATH PA-C [Primary Care Provider] - Follow up as needed Information source: Patient Notes: 44-year-old female presents to the emergency department complaining of diffuse abdominal pain that began this morning. Patient stated was hurting "just a little bit" last night. Patient's brother confirms that this pain is the same pain as she has been here prior. Patient's brother said that patient has not been able to keep anything down and has been vomiting "yellow stuff" all afternoon. Patient states that she has not ate anything because she does no want to throw up. TRAVEL OUTSIDE OF THE [place] IN LAST 30 DAYS: No - Related Data Allergies/Adverse Reactions: metoclopramide HCl [From [facility]] Allergy (Unknown, Verified 05/21/19 02:12) Past Medical History - General Information source: Patient - Social History Smoking Status: Never Smoker Cigarette use (# per day): No Chew tobacco use (# tins/day): No Family History: DM, Hypertension. denies: CAD, Malignancy Patient has suicidal ideation: No Patient has homicidal ideation: No - Past Medical History Cardiac Medical History: Reports: Hx Hypercholesterolemia, Hx Hypertension Pulmonary Medical History: Neurological Medical History: Endocrine Medical History: Reports: Hx Diabetes Mellitus Type 2 Renal/ Medical History: Reports: Hx Renal Insufficiency GI Medical History: Reports: Hx Gastroesophageal Reflux Disease, Hx Hiatal Hernia Musculoskeletal Medical History: Reports Hx Arthritis Skin Medical History: Reports Hx Eczema Psychiatric Medical History: Reports: Hx Anxiety, Hx Bipolar Disorder, Hx Depression Infectious Medical History: Reports: Hx MRSA Past Surgical History: Reports: Hx Cholecystectomy - Immunizations Immunizations up to date: Yes Hx Diphtheria, Pertussis, Tetanus Vaccination: Yes - unknown Hx Pneumococcal Vaccination: 05/04/10 Review of Systems - Review of Systems Constitutional: No symptoms reported EENT: No symptoms reported Cardiovascular: No symptoms reported Respiratory: No symptoms reported Gastrointestinal: See HPI, Abdominal pain, Vomiting Genitourinary: No symptoms reported Female Genitourinary: No symptoms reported Musculoskeletal: No symptoms reported Skin: No symptoms reported Hematologic/Lymphatic: No symptoms reported Neurological/Psychological: No symptoms reported -: Yes All other systems reviewed and negative Physical Exam - Vital signs Vitals: Temp Pulse Resp BP Pulse Ox 98.7 F 121 H 20 155/105 H 100 07/20/19 20:58 07/20/19 20:58 07/20/19 20:58 07/20/19 20:58 07/20/19 20:58 - Notes Notes: Physical Exam: General: Patient is writhing in pain. HEENT: Normocephalic. Atraumatic. PERRL. Extraocular movements intact. Oropharynx clear. Neck: Supple. Non-tender. Respiratory: No respiratory distress. Clear and equal breath sounds bilaterally. Cardiovascular: Regular rate and rhythm. Abdominal: Normal Inspection. Non-tender. No distension. Normal Bowel Sounds. Back: No gross abnormalities. Extremities: Moves all four extremities. Upper extremities: Normal inspection. Normal ROM. Lower extremities: Normal inspection. No edema. Normal ROM. Neurological: Normal cognition. AAOx4. Normal speech. Psychological: Normal affect. Normal Mood. Skin: Warm. Dry. Normal color. Course - Re-evaluation Re-evalutation: 07/21/19 05:26 Patient resting comfortably in bed no nausea and vomiting at this time. Denies any abdominal pain. - Vital Signs Vital signs: Temp Pulse Resp BP Pulse Ox 98.3 F 116 H 16 158/79 H 95 07/21/19 03:47 07/21/19 03:47 07/21/19 03:47 07/21/19 03:47 07/21/19 03:47 - Laboratory Result Diagrams: 07/20/19 23:52 07/21/19 04:10 Laboratory results interpreted by me: 07/20/19 07/20/19 07/20/19 21:59 23:52 23:52 WBC 11.7 H MCV 78 L MCH 25.0 L RDW 15.8 H Lymph % (Auto) 7.0 L Absolute Neuts (auto) 10.3 H Seg Neutrophils % 88.3 H Chloride Carbon Dioxide 17 L Glucose 318 H POC Glucose Lactic Acid Alkaline Phosphatase 141 H Total Protein 8.5 H Urine Protein 100 H Urine Glucose (UA) >=500 H Urine Ketones 80 H Urine Blood MODERATE H Acetaminophen 07/20/19 07/20/19 07/21/19 23:52 23:52 01:32 WBC MCV MCH RDW Lymph % (Auto) Absolute Neuts (auto) Seg Neutrophils % Chloride Carbon Dioxide Glucose POC Glucose 249 H Lactic Acid 2.4 H Alkaline Phosphatase Total Protein Urine Protein Urine Glucose (UA) Urine Ketones Urine Blood Acetaminophen < 10 L 07/21/19 04:10 WBC MCV MCH RDW Lymph % (Auto) Absolute Neuts (auto) Seg Neutrophils % Chloride 109 H Carbon Dioxide 21 L Glucose 231 H POC Glucose Lactic Acid Alkaline Phosphatase Total Protein Urine Protein Urine Glucose (UA) Urine Ketones Urine Blood Acetaminophen Patient had a lactic acid elevation that has resolved with IV fluids hydration. Patient's blood sugar most recent check is 239. Patient is not in any signs of DKA at this time. Patient is stable and is ready for discharge. Discharge - Discharge Clinical Impression: Intractable vomiting with nausea, Dehydration, Intractable cyclical vomiting, Chronic abdominal pain, Diabetes mellitus type 1, uncontrolled, insulin dependent Condition: Stable Disposition: HOME, SELF-CARE Instructions: Abdominal Pain ([facility]), Antinausea Medication ([facility]), Vomiting ([facility]) Prescriptions: Ondansetron [Zofran Odt 4 mg Tablet] 1 - 2 tab PO Q4H PRN #15 tab.rapdis PRN Reason: For Nausea/Vomiting Referrals: GLEN MCGRATH PA-C [Primary Care Provider] - Follow up as needed I personally performed the services described in the documentation, reviewed and edited the documentation which was dictated to the scribe in my presence, and it accurately records my words and actions.
[2019-07-21] MEDS ORDERED: ONDANSETRON ODT 4 MG TAB (6 TAB/ER DISP) PO PRN (05:58)
[2019-07-21 06:12] VITALS: BP 170/90
== END 2019-07-21 05:56 | disposition home or self-care (01) ==
LOC: ER 20:49
DX: R11.2 Nausea with vomiting, unspecified (principal); E86.0 Dehydration; R10.9 Unspecified abdominal pain; G89.29 Other chronic pain; E10.9 Type 1 diabetes mellitus without complications; Z79.4 Long term (current) use of insulin; Z88.8 Allergy status to other drugs, medicaments and biological substances; I10 Essential (primary) hypertension
CPT/HCPCS: 99284; 96361; 96374; 96375; 36415; 82962; 80307 ×3; 84702; 83605; 83690; 84703; 85025; 80048; 80053; 81001; 74022; J1200; J1630; J2270; J7030; J7120; S0028

== ENCOUNTER 2019-07-21 12:21 | Inpatient (IN) | payer MEDICARE, MEDICAID ==
[2019-07-21] MEDS ORDERED: ONDANSETRON HCL INJ/PF 4 MG/2 ML SDV IV ONE (12:58)
[2019-07-21] MEDS ORDERED: RINGERS SOLUTION,LACTATED 2,000 ML IV ONE (12:59)
--- NOTE | 2019-07-21 13:00 | ER Document Report ---
ED Medical Screen (RME) - General Chief Complaint: Abdominal Pain Stated Complaint: ABDOMINAL PAIN Time Seen by Provider: 07/21/19 12:55 Primary Care Provider: GLEN MCGRATH PA-C [Primary Care Provider] - Follow up as needed Notes: Patient is a 44-year-old female who presents to the emergency department with a chief complaint of mid upper abdominal pain. Patient also admits to vomiting multiple times. She was seen here in the emergency department yesterday. Patient has a history of cyclic vomiting syndrome. She is currently taking Zofran, but states that it is not working. Exam: Soft, mildly tender mid upper abdomen. Patient's current blood pressure is 219/105 with a heart rate of 124. I have greeted and performed a rapid initial assessment of this patient. A comprehensive ED assessment and evaluation of the patient, analysis of test results and completion of medical decision making process will be conducted by an additional ED providers. TRAVEL OUTSIDE OF THE [place] IN LAST 30 DAYS: No - Related Data Allergies/Adverse Reactions: metoclopramide HCl [From Reglan] Allergy (Unknown, Verified 05/21/19 02:12) Past Medical History - Social History Frequency of alcohol use: None Drug Abuse: None Family history: DM, Hypertension - Past Medical History Cardiac Medical History: Reports: Hx Hypercholesterolemia, Hx Hypertension Denies: Hx Atrial Fibrillation, Hx Coronary Artery Disease, Hx DVT, Hx Pulmonary Embolism Pulmonary Medical History: Denies: Hx Asthma, Hx COPD Neurological Medical History: Denies: Hx Seizures Endocrine Medical History: Reports: Hx Diabetes Mellitus Type 2. Denies: Hx Diabetes Mellitus Type 1, Hx Hyperthyroidism, Hx Hypothyroidism Renal/ Medical History: Reports: Hx Renal Insufficiency. Denies: Hx Peritoneal Dialysis GI Medical History: Reports: Hx Gastroesophageal Reflux Disease, Hx Hiatal Hernia. Denies: Hx Cirrhosis, Hx Crohn's Disease, Hx Hepatitis, Hx Ulcerative Colitis Musculoskeltal Medical History: Reports Hx Arthritis, Denies Hx Gout Skin Medical History: Reports Hx Eczema, Denies Hx Psoriasis Psychiatric Medical History: Reports: Hx Anxiety, Hx Bipolar Disorder, Hx Depression Infectious Medical History: Reports: Hx MRSA. Denies: Hx Hepatitis Past Surgical History: Reports: Hx Cholecystectomy - Immunizations Immunizations up to date: Yes Hx Diphtheria, Pertussis, Tetanus Vaccination: Yes - unknown Physical Exam - Vital signs Vitals: Temp Pulse Resp BP Pulse Ox 97.5 F 124 H 16 219/105 H 100 07/21/19 12:41 07/21/19 12:41 07/21/19 12:41 07/21/19 12:41 07/21/19 12:41 Course - Vital Signs Vital signs: Temp Pulse Resp BP Pulse Ox 97.5 F 124 H 16 219/105 H 100 07/21/19 12:41 07/21/19 12:41 07/21/19 12:41 07/21/19 12:41 07/21/19 12:41 Doctor's Discharge - Discharge Referrals: GLEN MCGRATH PA-C [Primary Care Provider] - Follow up as needed
[2019-07-21 13:46] LABS: APPEARANCE,URINE CLEAR; BILIRUBIN,URINE NEGATIVE (NEGATIVE); COLOR,URINE STRAW; GLUCOSE, URINE >=500 mg/dL (NEGATIVE); KETONES,URINE 80 mg/dL (NEGATIVE); LEUKOCYTE ESTERASE,URINE NEGATIVE (NEGATIVE); NITRITE,URINE NEGATIVE (NEGATIVE); PROTEIN,URINE 30 mg/dL (NEGATIVE); URINE SPECIFIC GRAVITY 1.021; UROBILINOGEN,URINE NEGATIVE mg/dL (<2.0)
[2019-07-21] MEDS ORDERED: MORPHINE SULFATE 10 MG/ML INJ IV ONE ×2 (14:36→16:11)
[2019-07-21] MEDS ORDERED: PROMETHAZINE HCL INJ 25 MG/1 ML VIAL IV ONE (14:36)
[2019-07-21 14:56] LABS: ABSOLUTE LYMPHOCYTES (AUTO) 1.1 10^3/uL (0.5-4.7); ABSOLUTE MONOCYTES (AUTO) 0.5 10^3/uL (0.1-1.4); ABSOLUTE NEUT (AUTO) 16.8 10^3/uL (1.7-8.2); BASOPHILS % (AUTO) 0.2 % (0-2); HEMATOCRIT 38.6 % (36.0-47.0); HEMOGLOBIN 12.6 g/dL (12.0-15.5); LYMPHOCYTES % (AUTO) 5.7 % (13-45); MEAN CORPUSCULAR HEMOGLOBIN 25.5 pg (27.0-33.4); MEAN CORPUSCULAR HGB CONC 32.7 g/dL (32.0-36.0); MEAN CORPUSCULAR VOLUME 78 fl (80-97); MONOCYTES % (AUTO) 2.5 % (3-13); PLATELET COUNT 435 10^3/uL (150-450); RED BLOOD COUNT 4.94 10^6/uL (3.72-5.28); RED CELL DISTRIBUTION WIDTH 16.1 % (11.5-14.0); SEGMENTED NEUTROPHILS % (AUTO) 91.6 % (42-78); TOTAL CELLS COUNTED % (AUTO) 100 %; WHITE BLOOD COUNT 18.4 10^3/uL (4.0-10.5)
[2019-07-21] MEDS ORDERED: CLONIDINE 0.2 MG/24 HR PATCH.TDWK TD ONE (16:49)
[2019-07-21] MEDS ORDERED: METOPROLOL SUCCINATE 50 MG TAB.SR.24H PO ONE ×2 (16:49→16:51)
[2019-07-21] MEDS ORDERED: NORMAL SALINE 1000 ML 1,000 ML IV ONE (16:53)
--- NOTE | 2019-07-21 17:02 | EKG REPORT ---
SEVERITY:- ABNORMAL ECG - SINUS TACHYCARDIA TAQUERIA, CONSIDER BIATRIAL ABNORMALITIES PROBABLE LEFT VENTRICULAR HYPERTROPHY NONSPECIFIC T ABNORMALITIES, INFERIOR LEADS : Confirmed by: Buffy Guajardo MD 21-Jul-2019 17:01:54
[2019-07-21 17:12] LABS: ALBUMIN 4.8 g/dL (3.5-5.0); ALKALINE PHOSPHATASE 146 U/L (38-126); ANION GAP 17 (5-19); ASPARTATE AMINO TRANSFERASE 25 U/L (14-36); BILIRUBIN,TOTAL 0.5 mg/dL (0.2-1.3); BLOOD UREA NITROGEN 10 mg/dL (7-20); CALCIUM 10.3 mg/dL (8.4-10.2); CARBON DIOXIDE 17 mmol/L (22-30); CHLORIDE 103 mmol/L (98-107); GLUCOSE 270 mg/dL (75-110); TOTAL PROTEIN 8.6 g/dL (6.3-8.2)
--- NOTE | 2019-07-21 18:10 | ER Document Report ---
ED General - General Chief Complaint: Abdominal Pain Stated Complaint: ABDOMINAL PAIN Time Seen by Provider: 07/21/19 12:55 Primary Care Provider: GLEN MCGRATH PA-C [Primary Care Provider] - Follow up as needed Mode of Arrival: Ambulatory Information source: Patient TRAVEL OUTSIDE OF THE [place] IN LAST 30 DAYS: No - HPI Notes: Patient presents with abdominal pain nausea and vomiting. She was recently discharged from the emergency department within the last 24 hours. She states when she went home she began to vomit again so she returned to the emergency department. She states her abdominal pain is diffuse and severe. Is constant. Nothing makes it better or worse. It radiates throughout her belly. She states she does have a history of cyclical vomiting syndrome and gastroparesis. She states she is been unable take her chronic daily medications. - Related Data Allergies/Adverse Reactions: metoclopramide HCl [From Reglan] Allergy (Unknown, Verified 07/21/19 13:29) Past Medical History - General Information source: Patient - Social History Smoking Status: Never Smoker Frequency of alcohol use: None Drug Abuse: None Family History: DM, Hypertension. denies: CAD, Malignancy Patient has suicidal ideation: No Patient has homicidal ideation: No - Past Medical History Cardiac Medical History: Reports: Hx Hypercholesterolemia, Hx Hypertension Denies: Hx Atrial Fibrillation, Hx Coronary Artery Disease, Hx DVT, Hx Pulmonary Embolism Pulmonary Medical History: Denies: Hx Asthma, Hx COPD Neurological Medical History: Denies: Hx Seizures Endocrine Medical History: Reports: Hx Diabetes Mellitus Type 2. Denies: Hx Di abetes Mellitus Type 1, Hx Hyperthyroidism, Hx Hypothyroidism Renal/ Medical History: Reports: Hx Renal Insufficiency. Denies: Hx Peritoneal Dialysis GI Medical History: Reports: Hx Gastroesophageal Reflux Disease, Hx Hiatal Hernia. Denies: Hx Cirrhosis, Hx Crohn's Disease, Hx Hepatitis, Hx Ulcerative Colitis Musculoskeletal Medical History: Reports Hx Arthritis, Denies Hx Gout Skin Medical History: Reports Hx Eczema, Denies Hx Psoriasis Psychiatric Medical History: Reports: Hx Anxiety, Hx Bipolar Disorder, Hx Depression Infectious Medical History: Reports: Hx MRSA. Denies: Hx Hepatitis Past Surgical History: Reports: Hx Cholecystectomy - Immunizations Immunizations up to date: Yes Hx Diphtheria, Pertussis, Tetanus Vaccination: Yes - unknown Hx Pneumococcal Vaccination: 05/04/10 Review of Systems - Review of Systems Constitutional: Malaise, Weakness. denies: Fever Cardiovascular: denies: See HPI, Chest pain Respiratory: denies: Cough, Short of breath -: Yes All other systems reviewed and negative Physical Exam - Vital signs Vitals: Temp Pulse Resp BP Pulse Ox 97.5 F 124 H 16 219/105 H 100 07/21/19 12:41 07/21/19 12:41 07/21/19 12:41 07/21/19 12:41 07/21/19 12:41 Interpretation: Hypertensive, Tachycardic - General General appearance: Alert In distress: Mild - HEENT Head: Normocephalic, Atraumatic Eyes: Normal Pupils: PERRL - Respiratory Respiratory status: No respiratory distress Chest status: Nontender Breath sounds: Normal Chest palpation: Normal - Cardiovascular Rhythm: Tachycardia Heart sounds: Normal auscultation Murmur: No - Abdominal Inspection: Normal Distension: No distension Bowel sounds: Normal Tenderness: Tender - pt has diffuse tender abdomen but no surgical abdominal signs Organomegaly: No organomegaly - Back Back: Normal, Nontender - Extremities General upper extremity: Normal inspection, Nontender, Normal color, Normal ROM, Normal temperature General lower extremity: Normal inspection, Nontender, Normal color, Normal ROM, Normal temperature, Normal weight bearing. No: Ander's sign - Neurological Neuro grossly intact: Yes Cognition: Normal Orientation: AAOx4 Zaina Coma Scale Eye Opening: Spontaneous Zaina Coma Scale Verbal: Oriented Zaina Coma Scale Motor: Obeys Commands Zaina Coma Scale Total: 15 Speech: Normal Motor strength normal: LUE, RUE, LLE, RLE Sensory: Normal - Psychological Associated symptoms: Normal affect, Normal mood - Skin Skin Temperature: Warm Skin Moisture: Dry Skin Color: Normal Course - Re-evaluation Re-evalutation: 07/21/19 18:19 pt presents with gastroparesis type symptoms. seems to be in narcotic withdrawal as well as rebound hypertension/tachy from not having metop and clonidine. Has elevated wbc but non surgical abd. believe wbc elevated due to stress of vomiting. with continue with fluids/anit emetics/htn meds/pain meds and admit. - Vital Signs Vital signs: Temp Pulse Resp BP Pulse Ox 97.5 F 124 H 27 H 204/107 H 100 07/21/19 12:41 07/21/19 12:41 07/21/19 16:37 07/21/19 16:37 07/21/19 16:37 - Laboratory Result Diagrams: 07/21/19 14:13 07/21/19 16:25 Laboratory results interpreted by me: 07/21/19 07/21/19 07/21/19 13:30 14:13 16:25 WBC 18.4 H MCV 78 L MCH 25.5 L RDW 16.1 H Lymph % (Auto) 5.7 L [place] % (Auto) 2.5 L Absolute Neuts (auto) 16.8 H Seg Neutrophils % 91.6 H Carbon Dioxide 17 L Glucose 270 H Lactic Acid Calcium 10.3 H Alkaline Phosphatase 146 H Total Protein 8.6 H Urine Protein 30 H Urine Glucose (UA) >=500 H Urine Ketones 80 H 07/21/19 16:25 WBC MCV MCH RDW Lymph % (Auto) [place] % (Auto) Absolute Neuts (auto) Seg Neutrophils % Carbon Dioxide Glucose Lactic Acid 3.0 H Calcium Alkaline Phosphatase Total Protein Urine Protein Urine Glucose (UA) Urine Ketones - EKG Interpretation by Me EKG shows normal: Sinus rhythm Rate: Tachycardia - 117 Rhythm: NSR [place]/QRS: No: Right axis deviation, Left axis deviation Discharge - Discharge Clinical Impression: Gastroparesis, Chronic abdominal pain, Uncontrolled hypertension, Dehydration, Gastroparesis due to DM Diabetes mellitus type 1, uncontrolled, insulin dependent Qualifiers: Glycemic state: with hyperglycemia Qualified Code(s): E10.65 - Type 1 diabetes mellitus with hyperglycemia Vomiting Qualifiers: Vomiting type: unspecified Vomiting Intractability: intractable Nausea presence: with nausea Qualified Code(s): R11.2 - Nausea with vomiting, unspecified Condition: Serious Disposition: ADMITTED INPATIENT Admitting Provider: Sebas (Hospitalist) Unit Admitted: Telemetry Referrals: GLEN MCGRATH PA-C [Primary Care Provider] - Follow up as needed
[2019-07-21] MEDS ORDERED: DEXTROSE 50%-WATER 25 GM/50 ML DISP.SYRIN IV PRN ×4 (18:44→18:56)
[2019-07-21] MEDS ORDERED: GLUCAGON,HUMAN RECOMB 1 MG INJ SUBCUT PRN (18:44)
[2019-07-21] MEDS ORDERED: TEMAZEPAM 7.5 MG CAPSULE PO PRN (18:44)
[2019-07-21] MEDS ORDERED: NORMAL SALINE 1000 ML 1,000 ML IV PRN (18:44)
[2019-07-21] MEDS ORDERED: DEXTROSE 40% GEL 15 GM TUBE PO PRN ×4 (18:44→18:56)
[2019-07-21] MEDS ORDERED: LORAZEPAM INJ 2 MG/1 ML VIAL IV PRN (18:53)
[2019-07-21] MEDS ORDERED: GLUCAGON,HUMAN RECOMB 1 MG INJ IM PRN (18:56)
--- NOTE | 2019-07-21 19:15 | PDOC H&P ---
History of Present Illness Admission Date/PCP: 07/21/19 18:37 GLEN MCGRATH PA-C Patient complains of: Vomiting History of Present Illness: RUTH CA is a 44 year old female with a history of type 2 diabetes mellitus, intractable vomiting, questionable gastroparesis, hypertension, who presents to the hospital with complaints of intractable vomiting since yesterday morning. This is a chronic issue for patient which has been going on for the past several years occurring about once or twice a month. Patient denies any marijuana use or other illicit drugs. She has had several episodes of nonbilious vomiting since then and has been unable to tolerate p.o. She has also not been able to tolerate some of her medications due to this. Patient admits to abdominal pain located in her epigastric region which she described as a burning sensation and denies any aggravating/alleviating factors. States pain is about a 5/5. Denies radiation. Patient did have a recent abdominal CT scan last month which showed findings suggestive of esophagitis/gastritis but otherwise benign. Symptoms seem somewhat similar. Noted to be significantly hypertensive in the ER and given metoprolol and clonidine patch. Subsequently referred to hospitalist service for admission. Past Medical History Cardiac Medical History: Reports: Hyperlipidema, Hypertension Denies: Atrial Fibrillation, Coronary Artery Disease, DVT, Pulmonary Embolism Pulmonary Medical History: Denies: Asthma, Chronic Obstructive Pulmonary Disease (COPD) Neurological Medical History: Denies: Seizures Endocrine Medical History: Reports: Diabetes Mellitus Type 2 Denies: Diabetes Mellitus Type 1, Hyperthyroidism, Hypothyroidism GI Medical History: Reports: Gastroesophageal Reflux Disease, Hiatal Hernia Denies: Cirrhosis, Crohn's Disease, Hepatitis, Ulcerative Colitis Musculoskeltal Medical History: Reports: Arthritis Denies: Gout Skin Medical History: Reports: Eczema Denies: Psoriasis Psychiatric Medical History: Reports: Bipolar Disorder, Depression Hematology: Reports: Anemia Denies: Bleeding Tendencies Infectious Medical History: Reports: Methicillin-Resistant Staph Aureus Past Surgical History Past Surgical History: Reports: Cholecystectomy Social History Smoking Status: Never Smoker Frequency of Alcohol Use: None Hx Recreational Drug Use: No Drugs: None Hx Prescription Drug Abuse: No - Advance Directive Resuscitation Status: Full Code Family History Family History: DM, Hypertension. denies: CAD, Malignancy Parental Family History Reviewed: Yes Children Family History Reviewed: NA Sibling(s) Family History Reviewed.: NA Medication/Allergy Allergies/Adverse Reactions: metoclopramide HCl [From Reglan] Allergy (Unknown, Verified 07/21/19 13:29) Review of Systems Constitutional: ABSENT: chills, fever(s) Eyes: ABSENT: visual disturbances Nose, Mouth, and Throat: ABSENT: headache(s) Cardiovascular: ABSENT: chest pain, dyspnea on exertion Respiratory: ABSENT: dyspnea, hemoptysis Gastrointestinal: PRESENT: abdominal pain, nausea, vomiting. ABSENT: hematemesis Genitourinary: ABSENT: dysuria Musculoskeletal: ABSENT: muscle weakness Integumentary: ABSENT: diaphoresis Neurological: ABSENT: confusion Psychiatric: PRESENT: anxiety Physical Exam Vital Signs: Temp Pulse Resp BP Pulse Ox 97.5 F 124 H 27 H 204/107 H 100 07/21/19 12:41 07/21/19 12:41 07/21/19 16:37 07/21/19 16:37 07/21/19 16:37 Intake & Output 07/20/19 07/21/19 07/22/19 06:59 06:59 06:59 Intake Total 1999 Balance 1999 Weight 74.9 kg General appearance: PRESENT: no acute distress, cooperative Mouth exam: PRESENT: dry mucosa, neck supple Neck exam: ABSENT: JVD Respiratory exam: PRESENT: clear to auscultation bernardo, unlabored. ABSENT: wheezes Cardiovascular exam: PRESENT: RRR, +S1, +S2, tachycardia GI/Abdominal exam: PRESENT: normal bowel sounds, soft, tenderness. ABSENT: distended, firm, guarding, rebound, rigid Musculoskeletal exam: PRESENT: ambulatory Neurological exam: PRESENT: alert, awake, oriented to person, oriented to place, oriented to time Psychiatric exam: ABSENT: agitated, anxious Focused psych exam: ABSENT: pressured speech Skin exam: ABSENT: jaundice Results Laboratory Results: 07/21/19 14:13 07/21/19 16:25 07/21/19 07/21/19 07/21/19 13:30 14:13 14:13 WBC 18.4 H RBC 4.94 Hgb 12.6 Hct 38.6 MCV 78 L MCH 25.5 L MCHC 32.7 RDW 16.1 H Plt Count 435 Seg Neutrophils % 91.6 H Sodium Cancelled Potassium Cancelled Chloride Cancelled Carbon Dioxide Cancelled Anion Gap Cancelled BUN Cancelled Creatinine Cancelled Est GFR ( Amer) Cancelled Est GFR (Non-Af Amer) Cancelled Glucose Cancelled Lactic Acid Calcium Cancelled Total Bilirubin Cancelled AST Cancelled Alkaline Phosphatase Cancelled Total Protein Cancelled Albumin Cancelled Lipase Cancelled Urine Color STRAW Urine Appearance CLEAR Urine pH 5.0 Ur Specific [place] 1.021 Urine Protein 30 H Urine Glucose (UA) >=500 H Urine Ketones 80 H Urine Blood NEGATIVE Urine Nitrite NEGATIVE Ur Leukocyte Esterase NEGATIVE Urine WBC (Auto) 1 07/21/19 07/21/19 16:25 16:25 WBC RBC Hgb Hct MCV MCH MCHC RDW Plt Count Seg Neutrophils % Sodium 137.1 Potassium 5.0 Chloride 103 Carbon Dioxide 17 L Anion Gap 17 BUN 10 Creatinine 0.77 Est GFR ( Amer) > 60 Est GFR (Non-Af Amer) Glucose 270 H Lactic Acid 3.0 H Calcium 10.3 H Total Bilirubin 0.5 AST 25 Alkaline Phosphatase 146 H Total Protein 8.6 H Albumin 4.8 Lipase 108.6 Urine Color Urine Appearance Urine pH Ur Specific [place] Urine Protein Urine Glucose (UA) Urine Ketones Urine Blood Urine Nitrite Ur Leukocyte Esterase Urine WBC (Auto) Assessment and Plan - Diagnosis (1) Intractable vomiting Qualifiers: Vomiting type: unspecified Nausea presence: with nausea Qualified Code(s): R11.2 - Nausea with vomiting, unspecified Is this a current diagnosis for this admission?: Yes Plan: Differentials include esophagitis/gastritis, diabetic gastroparesis or drug use. Check urine drug screen Unfortunately patient is allergic to Reglan. Will treat with Zofran IV and Phenergan. IV hydration. N.p.o. for now. Ice chips as needed. We will also give some Ativan to see if that helps with emesis. (2) Hypertensive urgency Is this a current diagnosis for this admission?: Yes Plan: Likely rebound hypertension from being off medications and also vascular constriction from depleted intravascular volume. As she is unable to tolerate p.o. at this time, will treat with IV hydralazine and IV labetalol. We will also give her a dose of 0.2 mg of clonidine p.o. now if patients tolerates. (3) Anxiety Is this a current diagnosis for this admission?: Yes Plan: Resume buspirone and amitriptyline. Supplement with IV Ativan if patient can tolerate p.o. (4) Type 2 diabetes mellitus Qualifiers: Diabetes mellitus long term care administrator insulin use: with long term care administrator use Diabetes mellitus complication status: with hyperglycemia Qualified Code(s): E11.65 - Type 2 diabetes mellitus with hyperglycemia; Z79.4 - half-way (current) use of insulin Is this a current diagnosis for this admission?: Yes Plan: We will reduce Lantus dose to 20 units nightly given n.p.o. status. Continue sliding scale and Accu-Cheks every 6 hours. (5) Esophagitis Is this a current diagnosis for this admission?: Yes Plan: Noted on abdominal CT last month. This may also be partly responsible for patient's emesis. Will need endoscopic evaluation likely at some point. Continue Protonix IV and Maalox. Also resume Carafate once patient can tolerate p.o. (6) Sinus tachycardia Is this a current diagnosis for this admission?: Yes Plan: Secondary to dehydration, abdominal pain and vomiting. IV fluid supplementation. (7) Leukocytosis Qualifiers: Leukocytosis type: unspecified Qualified Code(s): D72.829 - Elevated white blood cell count, unspecified Is this a current diagnosis for this admission?: Yes Plan: Seems to be due to hemoconcentration likely. Also possible inflammation. No obvious infection at this time. Patient notably has chronic leukocytosis though higher than usual at this time. - Time Time Spent with patient: 35 or more minutes
[2019-07-21] MEDS ORDERED: LORAZEPAM INJ 2 MG/1 ML VIAL IV ONE (19:45)
[2019-07-21] MEDS ORDERED: LABETALOL HCL INJ 20 MG/4 ML DISP.SYRIN IV ONE (19:45)
[2019-07-21] MEDS ORDERED: CLONIDINE HCL 0.2 MG TABLET PO ONE (19:45)
[2019-07-21] MEDS ORDERED: INSULIN GLARGINE,HUM.REC.ANLOG 1,000 UNIT/10 ML VIAL SUBCUT SCH (22:00)
[2019-07-21] MEDS: ATORVASTATIN CALCIUM 80 MG TABLET PO SCH (22:03)
[2019-07-21] MEDS: MAG HYDROX/AL HYDROX/SIMETH SUSP 30 ML UDCUP PO SCH (22:03)
[2019-07-21] MEDS: PANTOPRAZOLE SODIUM 40 MG VIAL IV SCH (22:03)
[2019-07-21] MEDS: AMITRIPTYLINE HCL 25 MG TABLET PO SCH (23:14)
[2019-07-21] MEDS: BUSPIRONE HCL 10 MG TABLET PO SCH (23:14)
[2019-07-21 23:23] LABS: URINE AMPHETAMINES SCREEN NEGATIVE; URINE BARBITURATES SCREEN NEGATIVE; URINE BENZODIAZEPINES SCREEN NEGATIVE; URINE COCAINE SCREEN NEGATIVE; URINE MARIJUANA (THC) SCREEN NEGATIVE; URINE METHADONE SCREEN NEGATIVE; URINE PHENCYCLIDINE SCREEN NEGATIVE
[2019-07-22] MEDS ORDERED: LABETALOL HCL INJ 20 MG/4 ML DISP.SYRIN IV SCH
[2019-07-22] MEDS: INSULIN LISPRO 100 UNIT/ML 3 ML VIAL SUBCUT SCH ×5 (01:59→22:35)
[2019-07-22] MEDS: HYDRALAZINE HCL INJ/PF 20 MG/1 ML SDV IV PRN (02:03)
[2019-07-22] MEDS: MAG HYDROX/AL HYDROX/SIMETH SUSP 30 ML UDCUP PO SCH ×3 (05:33→22:34)
[2019-07-22] MEDS ORDERED: INFLUENZA QUAD (6MOS+) 2019-20 VAC 0.5 ML SYR IM ONE (06:06)
[2019-07-22 07:38] LABS: ABSOLUTE MONOCYTES (AUTO) 0.9 10^3/uL (0.1-1.4); ABSOLUTE NEUT (AUTO) 9.1 10^3/uL (1.7-8.2); BASOPHILS % (AUTO) 0.4 % (0-2); EOSINOPHILS % (AUTO) 0.2 % (0-6); HEMATOCRIT 36.5 % (36.0-47.0); HEMOGLOBIN 11.9 g/dL (12.0-15.5); LYMPHOCYTES % (AUTO) 16.4 % (13-45); MEAN CORPUSCULAR HEMOGLOBIN 25.2 pg (27.0-33.4); MEAN CORPUSCULAR HGB CONC 32.7 g/dL (32.0-36.0); MEAN CORPUSCULAR VOLUME 77 fl (80-97); MONOCYTES % (AUTO) 7.8 % (3-13); PLATELET COUNT 331 10^3/uL (150-450); RED BLOOD COUNT 4.73 10^6/uL (3.72-5.28); RED CELL DISTRIBUTION WIDTH 16.1 % (11.5-14.0); SEGMENTED NEUTROPHILS % (AUTO) 75.2 % (42-78); TOTAL CELLS COUNTED % (AUTO) 100 %; WHITE BLOOD COUNT 12.1 10^3/uL (4.0-10.5)
[2019-07-22 08:03] LABS: ALBUMIN 4.3 g/dL (3.5-5.0); ALKALINE PHOSPHATASE 117 U/L (38-126); ANION GAP 14 (5-19); ASPARTATE AMINO TRANSFERASE 18 U/L (14-36); BILIRUBIN,TOTAL 0.5 mg/dL (0.2-1.3); BLOOD UREA NITROGEN 13 mg/dL (7-20); CALCIUM 9.7 mg/dL (8.4-10.2); CARBON DIOXIDE 20 mmol/L (22-30); CHLORIDE 103 mmol/L (98-107); GLUCOSE 186 mg/dL (75-110); PHOSPHORUS 2.6 mg/dL (2.5-4.5); POTASSIUM 4.1 mmol/L (3.6-5.0); TOTAL PROTEIN 7.7 g/dL (6.3-8.2)
[2019-07-22] MEDS: DICYCLOMINE HCL 10 MG CAPSULE PO PRN ×2 (10:25→23:26)
[2019-07-22] MEDS: BUSPIRONE HCL 10 MG TABLET PO SCH ×2 (10:27→22:35)
[2019-07-22] MEDS: ENOXAPARIN SODIUM INJ 40 MG/0.4 ML DISP.SYRIN SUBCUT SCH (10:27)
[2019-07-22] MEDS: SUCRALFATE 1 GM TABLET PO SCH ×3 (10:27→22:35)
[2019-07-22] MEDS: PANTOPRAZOLE SODIUM 40 MG VIAL IV SCH ×2 (10:28→17:29)
[2019-07-22] MEDS: AMLODIPINE BESYLATE 10 MG TABLET PO SCH (10:28)
[2019-07-22] MEDS: METOPROLOL SUCCINATE 25 MG TAB.SR.24H PO SCH ×2 (10:29→22:34)
[2019-07-22] MEDS: MORPHINE SULFATE 10 MG/ML INJ IV PRN ×2 (12:30→20:45)
--- NOTE | 2019-07-22 19:01 | PDOC PROGRESS REPORT ---
Subjective Progress Note for:: 07/22/19 Subjective:: Patient was seen this morning. At the time of encounter, patient was still experiencing some nausea but vomiting had resolved. Was able to tolerate p.o.'s. Willing to try to tolerates diet today. Still having some abdominal pain. Reason For Visit: INTRACTABLE VOMITING, HTN URGENCY Physical Exam Vital Signs: Temp Pulse Resp BP Pulse Ox 99.4 F 98 17 133/82 H 100 07/22/19 16:30 07/22/19 16:30 07/22/19 16:30 07/22/19 16:30 07/22/19 16:30 Intake & Output 07/21/19 07/22/19 07/23/19 06:59 06:59 06:59 Intake Total 3000 Balance 3000 Weight 74.9 kg General appearance: PRESENT: no acute distress, cooperative Neck exam: ABSENT: JVD Respiratory exam: PRESENT: clear to auscultation bernardo, unlabored. ABSENT: tachypnea, wheezes Cardiovascular exam: PRESENT: RRR, +S1, +S2. ABSENT: tachycardia GI/Abdominal exam: PRESENT: soft, tenderness - Epigastric. ABSENT: distended, firm, guarding, rebound, rigid Neurological exam: PRESENT: alert, awake, oriented to person, oriented to place, oriented to time Results Laboratory Results: 07/22/19 06:57 07/22/19 06:57 07/22/19 07/22/19 06:57 06:57 WBC 12.1 H RBC 4.73 Hgb 11.9 L Hct 36.5 MCV 77 L MCH 25.2 L MCHC 32.7 RDW 16.1 H Plt Count 331 Seg Neutrophils % 75.2 Sodium 136.9 L Potassium 4.1 Chloride 103 Carbon Dioxide 20 L Anion Gap 14 BUN 13 Creatinine 1.02 Est GFR ( Amer) > 60 Glucose 186 H Calcium 9.7 Phosphorus 2.6 Magnesium 1.8 Total Bilirubin 0.5 AST 18 Alkaline Phosphatase 117 Total Protein 7.7 Albumin 4.3 Assessment and Plan - Diagnosis (1) Intractable vomiting Qualifiers: Vomiting type: unspecified Nausea presence: with nausea Qualified Code(s): R11.2 - Nausea with vomiting, unspecified Is this a current diagnosis for this admission?: Yes Plan: Emesis has resolved though still somewhat nauseated Differentials include esophagitis/gastritis, diabetic gastroparesis UDS negative Unfortunately patient is allergic to Reglan. Will treat with Zofran IV and Phenergan. Continue IV hydration and reduce rate Started on soft diet. We will see if patient can tolerate this. (2) Hypertensive urgency Is this a current diagnosis for this admission?: Yes Plan: BP has improved. Will continue patient's clonidine patch. Started amlodipine that she is able to tolerate p.o.'s now. IV hydralazine as needed. (3) Anxiety Is this a current diagnosis for this admission?: Yes Plan: Resumed buspirone, duloxetine and amitriptyline as well as hydroxyzine as needed. (4) Type 2 diabetes mellitus Qualifiers: Diabetes mellitus assisted insulin use: with medical terminologist use Diabetes m ellitus complication status: with hyperglycemia Qualified Code(s): E11.65 - Type 2 diabetes mellitus with hyperglycemia; Z79.4 - lobsterman (current) use of insulin Is this a current diagnosis for this admission?: Yes Plan: Now that diet has been restarted, will increase Lantus dose back to 30 units nightly. Continue sliding scale and Accu-Cheks. (5) Esophagitis Is this a current diagnosis for this admission?: Yes Plan: Noted on abdominal CT last month. This may also be partly responsible for patient's emesis. Will need endoscopic evaluation likely at some point outpatient. Continue Protonix IV and Maalox. Also resume Carafate once patient can tolerate p.o. (6) Sinus tachycardia Is this a current diagnosis for this admission?: Yes Plan: Secondary to dehydration, abdominal pain and vomiting. IV fluid supplementation. (7) Leukocytosis Qualifiers: Leukocytosis type: unspecified Qualified Code(s): D72.829 - Elevated white blood cell count, unspecified Is this a current diagnosis for this admission?: Yes - Time Time Spent with patient: Less than 15 minutes
[2019-07-22] MEDS: NORMAL SALINE 1000 ML 1,000 ML IV PRN (20:46)
[2019-07-22] MEDS ORDERED: INSULIN GLARGINE,HUM.REC.ANLOG 1,000 UNIT/10 ML VIAL SUBCUT SCH (22:00)
[2019-07-22] MEDS: AMITRIPTYLINE HCL 25 MG TABLET PO SCH (22:35)
[2019-07-22] MEDS: DULOXETINE HCL 20 MG CAPSULE.DR PO SCH (22:35)
[2019-07-22] MEDS: ATORVASTATIN CALCIUM 80 MG TABLET PO SCH (22:35)
[2019-07-23] MEDS: HYDROXYZINE PAMOATE 25 MG CAPSULE PO PRN (00:29)
[2019-07-23] MEDS: ONDANSETRON HCL INJ/PF 4 MG/2 ML SDV IV PRN (00:29)
[2019-07-23] MEDS: MORPHINE SULFATE 10 MG/ML INJ IV PRN (03:18)
[2019-07-23] MEDS: HYDRALAZINE HCL INJ/PF 20 MG/1 ML SDV IV PRN ×2 (04:33→12:16)
[2019-07-23] MEDS: MAG HYDROX/AL HYDROX/SIMETH SUSP 30 ML UDCUP PO SCH ×3 (05:16→21:18)
[2019-07-23 07:05] LABS: ABSOLUTE BASOPHILS # (AUTO) 0.1 10^3/uL (0.0-0.2); ABSOLUTE LYMPHOCYTES (AUTO) 1.9 10^3/uL (0.5-4.7); ABSOLUTE MONOCYTES (AUTO) 0.7 10^3/uL (0.1-1.4); ABSOLUTE NEUT (AUTO) 8.7 10^3/uL (1.7-8.2); BASOPHILS % (AUTO) 1.2 % (0-2); EOSINOPHILS % (AUTO) 0.2 % (0-6); HEMATOCRIT 37.3 % (36.0-47.0); HEMOGLOBIN 12.2 g/dL (12.0-15.5); LYMPHOCYTES % (AUTO) 16.5 % (13-45); MEAN CORPUSCULAR HEMOGLOBIN 25.1 pg (27.0-33.4); MEAN CORPUSCULAR HGB CONC 32.7 g/dL (32.0-36.0); MEAN CORPUSCULAR VOLUME 77 fl (80-97); MONOCYTES % (AUTO) 6.1 % (3-13); PLATELET COUNT 385 10^3/uL (150-450); RED BLOOD COUNT 4.86 10^6/uL (3.72-5.28); RED CELL DISTRIBUTION WIDTH 16.1 % (11.5-14.0); TOTAL CELLS COUNTED % (AUTO) 100 %; WHITE BLOOD COUNT 11.5 10^3/uL (4.0-10.5)
[2019-07-23 07:13] LABS: ANION GAP 15 (5-19); BLOOD UREA NITROGEN 19 mg/dL (7-20); CALCIUM 9.7 mg/dL (8.4-10.2); CARBON DIOXIDE 20 mmol/L (22-30); CHLORIDE 100 mmol/L (98-107); GLUCOSE 312 mg/dL (75-110); POTASSIUM 3.9 mmol/L (3.6-5.0)
[2019-07-23] MEDS ORDERED: LABETALOL HCL INJ 20 MG/4 ML DISP.SYRIN IV SCH (08:00)
[2019-07-23] MEDS: SUCRALFATE 1 GM TABLET PO SCH ×4 (08:28→21:19)
[2019-07-23] MEDS: INSULIN LISPRO 100 UNIT/ML 3 ML VIAL SUBCUT SCH ×4 (08:28→21:20)
[2019-07-23] MEDS: METOPROLOL SUCCINATE 25 MG TAB.SR.24H PO SCH ×2 (09:08→21:19)
[2019-07-23] MEDS: AMLODIPINE BESYLATE 10 MG TABLET PO SCH (09:08)
[2019-07-23] MEDS: ENOXAPARIN SODIUM INJ 40 MG/0.4 ML DISP.SYRIN SUBCUT SCH (09:09)
[2019-07-23] MEDS: PANTOPRAZOLE SODIUM 40 MG VIAL IV SCH ×2 (09:09→17:06)
[2019-07-23] MEDS: DULOXETINE HCL 20 MG CAPSULE.DR PO SCH ×2 (09:09→21:19)
[2019-07-23] MEDS: BUSPIRONE HCL 10 MG TABLET PO SCH ×2 (09:09→21:19)
[2019-07-23] MEDS ORDERED: (PENDING PHARMACY ID) (Empagliflozin [Jardiance] 25 MG) PO SCH (10:00)
[2019-07-23] MEDS ORDERED: LOSARTAN POTASSIUM 25 MG TABLET PO SCH (10:00)
[2019-07-23] MEDS: DICYCLOMINE HCL 10 MG CAPSULE PO PRN (11:59)
[2019-07-23] MEDS ORDERED: DEXTROSE 50%-WATER 25 GM/50 ML DISP.SYRIN IV PRN (12:28)
--- NOTE | 2019-07-23 17:37 | PDOC PROGRESS REPORT ---
Subjective Progress Note for:: 07/23/19 Subjective:: Patient's started having recurrent nausea this afternoon prior to intended discharge accompanied with epigastric pain. As such discharge has been canceled and will go ahead and pursue endoscopic evaluation. Reason For Visit: INTRACTABLE VOMITING, HTN URGENCY Physical Exam Vital Signs: Temp Pulse Resp BP Pulse Ox 97.8 F 90 16 107/68 99 07/23/19 16:00 07/23/19 16:00 07/23/19 16:00 07/23/19 16:00 07/23/19 16:00 Intake & Output 07/22/19 07/23/19 07/24/19 06:59 06:59 06:59 Intake Total 3000 270 1580 Balance 3000 270 1580 Weight 74.9 kg 67.8 kg General appearance: PRESENT: no acute distress, cooperative Neck exam: ABSENT: JVD Respiratory exam: PRESENT: clear to auscultation bernardo, unlabored. ABSENT: tachypnea, wheezes Cardiovascular exam: PRESENT: RRR, +S1, +S2. ABSENT: tachycardia GI/Abdominal exam: PRESENT: normal bowel sounds, soft, tenderness. ABSENT: rebound, rigid Neurological exam: PRESENT: alert, awake, oriented to person, oriented to place, oriented to time, oriented to situation Psychiatric exam: PRESENT: agitated, anxious Results Laboratory Results: 07/23/19 06:31 07/23/19 06:31 07/23/19 07/23/19 06:31 06:31 WBC 11.5 H RBC 4.86 Hgb 12.2 Hct 37.3 MCV 77 L MCH 25.1 L MCHC 32.7 RDW 16.1 H Plt Count 385 Seg Neutrophils % 76.0 Sodium 135.4 L Potassium 3.9 Chloride 100 Carbon Dioxide 20 L Anion Gap 15 BUN 19 Creatinine 1.02 Est GFR ( Amer) > 60 Glucose 312 H Calcium 9.7 Assessment and Plan - Diagnosis (1) Intractable vomiting Qualifiers: Vomiting type: unspecified Nausea presence: with nausea Qualified Code(s): R11.2 - Nausea with vomiting, unspecified Is this a current diagnosis for this admission?: Yes Plan: UDS negative. Gastric emptying study done in 2018 was normal. Acute abdominal series unremarkable. Likely due to severe esophagitis/gastritis. Vomiting has resolved but given persistent nausea and epigastric pain, discharge has been canceled and patient will be evaluated with upper endoscopy tomorrow. I have discussed this with surgery. N.p.o. past midnight Continue IV antiemetics as needed Patient was able to tolerate soft diet yesterday to today (2) Hypertensive urgency Is this a current diagnosis for this admission?: Yes Plan: Became hypotensive again this evening requiring IV hydralazine. Continue metoprolol and amlodipine. Patient states that she was taking lisinopril at home there was not in med rec. Have restarted lisinopril and put her 20 mg twice a day. Will discontinue clonidine due to repeated episodes of rebound hypertension after cessation of medication. (3) Anxiety Is this a current diagnosis for this admission?: Yes Plan: Resumed buspirone, duloxetine and amitriptyline as well as hydroxyzine as needed. (4) Type 2 diabetes mellitus Qualifiers: Diabetes mellitus moth exterminator insulin use: with longterm use Diabetes mellitus complication status: with hyperglycemia Qualified Code(s): E11.65 - Type 2 diabetes mellitus with hyperglycemia; Z79.4 - shelter (current) use of insulin Is this a current diagnosis for this admission?: Yes Plan: Patient states that she takes 40 units nightly. Will give 20 units tonight since n.p.o. tomorrow. Continue sliding scale and Accu-Cheks. (5) Esophagitis Is this a current diagnosis for this admission?: Yes Plan: Noted on abdominal CT last month. This may also be partly responsible for patient's emesis. We will proceed with endoscopic evaluation. Continue Protonix. (6) Sinus tachycardia Is this a current diagnosis for this admission?: Yes Plan: Metoprolol 75 mg every 12 hours. She does have history of HOCM. (7) HOCM (hypertrophic obstructive cardiomyopathy) Is this a current diagnosis for this admission?: Yes Plan: Patient has history of HOCM. Dr. Gould consulted for risk stratification before endoscopy. Continue metoprolol. (8) Leukocytosis Qualifiers: Leukocytosis type: unspecified Qualified Code(s): D72.829 - Elevated white blood cell count, unspecified Is this a current diagnosis for this admission?: Yes - Time Time Spent with patient: 15-24 minutes
--- NOTE | 2019-07-23 17:50 | PDOC CONSULTATION ---
Consultation Consult Date: 07/23/19 Provider Consulted: TARA MONTALVO Consult reason:: For EGD History of Present Illness Admission Date/PCP: 07/21/19 18:37 GLEN MCGRATH PA-C History of Present Illness: RUTH CA is a 44 year old female with diabetes mellitus type 2, hypertension, intractable vomiting admitted for intractable vomiting with abdominal pains. She claims she would have vomiting about 2 episodes a month each lasting about 2 to 5days time associated with abdominal pains. There is a question of gastroparesis. She apparently had a CT scan of the abdomen about a month ago which showed esophagitis/gastritis. She is being referred to surgery for upper endoscopy. Her last upper endoscopy was about in 2014 and was told her there is inflammation in the esophagus and stomach. She has been on medications including Nexium and Zofran. She is allergic to Reglan. Past Medical History Cardiac Medical History: Reports: Hyperlipidema, Hypertension Denies: Atrial Fibrillation, Coronary Artery Disease, DVT, Pulmonary Embolism Pulmonary Medical History: Denies: Asthma, Chronic Obstructive Pulmonary Disease (COPD) Neurological Medical History: Denies: Seizures Endocrine Medical History: Reports: Diabetes Mellitus Type 2 Denies: Diabetes Mellitus Type 1, Hyperthyroidism, Hypothyroidism GI Medical History: Reports: Gastroesophageal Reflux Disease, Hiatal Hernia Denies: Cirrhosis, Crohn's Disease, Hepatitis, Ulcerative Colitis Musculoskeltal Medical History: Reports: Arthritis Denies: Gout Skin Medical History: Reports: Eczema Denies: Psoriasis Psychiatric Medical History: Reports: Bipolar Disorder, Depression Hematology: Reports: Anemia Denies: Bleeding Tendencies Infectious Medical History: Reports: Methicillin-Resistant Staph Aureus Past Surgical History Past Surgical History: Reports: Cholecystectomy Social History Smoking Status: Never Smoker Frequency of Alcohol Use: None Hx Recreational Drug Use: No Drugs: None Hx Prescription Drug Abuse: No - Advance Directive Resuscitation Status: Full Code Family History Family History: DM, Hypertension. denies: CAD, Malignancy Parental Family History Reviewed: No Children Family History Reviewed: No Sibling(s) Family History Reviewed.: No Medication/Allergy Home Medications: Amitriptyline HCl [Elavil 25 mg Tablet] 25 mg PO QHS 07/22/19 Buspirone HCl [Buspar 10 mg Tablet] 10 mg PO DAILY 07/22/19 Clonidine [Catapres-Tts 2 (0.2 mg/24 Hr) Transderm Ptch] 1 patch TD DIALLO@1000 07/22/19 Dicyclomine HCl [Bentyl 10 mg Capsule] 10 mg PO QID 07/22/19 Duloxetine HCl [Cymbalta 20 mg Capsule.dr] 20 mg PO BID 07/22/19 Empagliflozin [Jardiance] 25 mg PO DAILY 07/22/19 Hydroxyzine HCl [Atarax 10 mg Tablet] 25 mg PO Q8HP PRN 07/22/19 Insulin Aspart [Novolog Flexpen] 0 unit SUBCUT .SLD SCALE 07/22/19 Insulin Glargine,Hum.rec.anlog [Lantus Insulin 100 Unit/1 ml 10 ml] 30 unit SUBCUT DAILY 07/22/19 Phenobarbital [Phenobarbital 20 mg/5 ml Elixir Udcup] 5 ml PO BIDP PRN 07/22/19 Rosuvastatin Calcium [Crestor] 40 mg PO DAILY 07/22/19 Amlodipine Besylate [Norvasc 10 mg Tablet] 10 mg PO DAILY #30 07/23/19 Lisinopril 40 mg PO DAILY 30 Days 07/23/19 Metoprolol Succinate [Toprol Xl 50 mg Tab.sr] 75 mg PO Q12 30 Days 07/23/19 Ondansetron [Zofran Odt 4 mg Tablet] 4 mg PO Q4HP PRN #30 tab.rapdis 07/23/19 Pantoprazole Sodium [Protonix [address] Tablet] 40 mg PO BID #60 07/23/19 Sucralfate [Carafate 1 gm Tablet] 1 gm PO MEALS #90 07/23/19 Allergies/Adverse Reactions: metoclopramide HCl [From Reglan] Allergy (Unknown, Verified 07/21/19 13:29) Review of Systems Constitutional: PRESENT: other - Denies fever nor chills Cardiovascular: PRESENT: other - No chest pains or cough Gastrointestinal: PRESENT: abdominal pain, nausea, vomiting Physical Exam Vital Signs: Temp Pulse Resp BP Pulse Ox 97.8 F 90 16 107/68 99 07/23/19 16:00 07/23/19 16:00 07/23/19 16:00 07/23/19 16:00 07/23/19 16:00 Intake & Output 07/22/19 07/23/19 07/24/19 06:59 06:59 06:59 Intake Total 3000 270 1580 Balance 3000 270 1580 Weight 74.9 kg 67.8 kg General appearance: PRESENT: no acute distress Eye exam: PRESENT: conjunctiva pink Mouth exam: PRESENT: moist Neck exam: PRESENT: full ROM Respiratory exam: PRESENT: clear to auscultation bernardo Cardiovascular exam: PRESENT: RRR Pulses: PRESENT: normal radial pulses Vascular exam: PRESENT: normal capillary refill GI/Abdominal exam: PRESENT: soft - Nontender Rectal exam: PRESENT: deferred Extremities exam: PRESENT: full ROM Musculoskeletal exam: PRESENT: ambulatory Neurological exam: PRESENT: alert, oriented to person, oriented to place, oriented to time, oriented to situation Psychiatric exam: PRESENT: appropriate affect Skin exam: PRESENT: normal color, warm Results Laboratory Results: 07/23/19 06:31 07/23/19 06:31 07/23/19 07/23/19 06:31 06:31 WBC 11.5 H RBC 4.86 Hgb 12.2 Hct 37.3 MCV 77 L MCH 25.1 L MCHC 32.7 RDW 16.1 H Plt Count 385 Seg Neutrophils % 76.0 Sodium 135.4 L Potassium 3.9 Chloride 100 Carbon Dioxide 20 L Anion Gap 15 BUN 19 Creatinine 1.02 Est GFR ( Amer) > 60 Glucose 312 H Calcium 9.7 Assessment & Plan - Diagnosis (1) Abdominal pain Qualifiers: Is this a current diagnosis for this admission?: Yes (2) Esophagitis Is this a current diagnosis for this admission?: Yes (3) Intractable vomiting with nausea Is this a current diagnosis for this admission?: Yes - Time Time Spent: 30 to 50 Minutes - Inpatient Certification Medical Necessity: Need for Surgery, Risk of Complication if Not Cared For in Hospital - Plan Summary Plan Summary: 44-year-old female with diabetes mellitus type 2, hypertension and chronic intractable vomiting. Her vomiting appears to be stopped today but still nauseated. Abdominal pains also appears to have subsided today. She had a CT scan of the abdomen and pelvis last month which showed esophagitis and gastritis. Patient for upper endoscopy tomorrow by Dr. Macias to rule out any esophagitis/gastritis.
--- NOTE | 2019-07-23 19:34 | PDOC CONSULTATION ---
Consultation-Blank Consultation: CARDIOLOGY CONSULTATION by Dr. Buffy Ferguson on 07/23/2019. Patient seen and 4 PM. 60 minutes spent with patient more than 50% time spent in direct patient care. REASON FOR CONSULTATION: Cardiac risk assessment for GI endoscopic work-up for abdominal pain and intractable vomiting. This is in view of the fact the patient has hypertension and IHSS. CONSULT REQUESTING PHYSICIAN: , [facility]. HISTORY OF PRESENT ILLNESS: Patient is a 44-year-old Afro-[place] female with history of hypertension, diabetes mellitus, bipolar disorder depression, and anxiety, and previously diagnosed with IHSS and hypertension admitted with intractable vomiting and epigastric burning abdominal pain. She has had chronic abdominal pain. And has not had a work-up since a long time. EGD is being planned and hence cardiac clearance in view of the patient's prior echocardiogram in June 18, 2016 showing IHSS with a resting LVOT gradient of 21 mmHg. The patient denies any anginal symptoms. There is no palpitations. There is no near syncope or syncope. There is no shortness of breath. There is no PND orthopnea. There is no syncope. Of note on psychiatric medications she at present seems to be of awake alert oriented x2 with normal judgment and intact reasoning. There is no leg edema. There is no TIA CVA symptoms. There is no hematemesis, melena or hematochezia or any other evidence of GI bleed. The patient after last admission had an appointment to see me in the office. This was to arrange for a cardiac MRI at [facility]. The patient did not keep her appointment. She now states that after being discharged she will follow-up with me and we can make arrangements to get a cardiac MRI for the patient. This is to quantify the degree of IHSS/LVOT obstruction. Past Medical History Cardiac Medical History: Reports: Hyperlipidema, Hypertension Denies: Atrial Fibrillation, Coronary Artery Disease, DVT, Pulmonary Embolism Pulmonary Medical History: Denies: Asthma, Chronic Obstructive Pulmonary Disease (COPD) Neurological Medical History: Denies: Seizures Endocrine Medical History: Reports: Diabetes Mellitus Type 2 Denies: Diabetes Mellitus Type 1, Hyperthyroidism, Hypothyroidism GI Medical History: Reports: Gastroesophageal Reflux Disease, Hiatal Hernia Denies: Cirrhosis, Crohn's Disease, Hepatitis, Ulcerative Colitis Musculoskeltal Medical History: Reports: Arthritis Denies: Gout Skin Medical History: Reports: Eczema Denies: Psoriasis Psychiatric Medical History: Reports: Bipolar Disorder, Depression Hematology: Reports: Anemia Denies: Bleeding Tendencies Infectious Medical History: Reports: Methicillin-Resistant Staph Aureus Past Surgical History Past Surgical History: Reports: Cholecystectomy Social History Smoking Status: Never Smoker Frequency of Alcohol Use: None Hx Recreational Drug Use: No Drugs: None Hx Prescription Drug Abuse: No - Advance Directive Resuscitation Status: Full Code Family History Family History: DM, Hypertension. denies: CAD, Malignancy Parental Family History Reviewed: Yes Children Family History Reviewed: NA Sibling(s) Family History Reviewed.: NA Medication/Allergy Allergies/Adverse Reactions: metoclopramide HCl [From Reglan] Allergy (Unknown, Verified 07/21/19 13:29) Resuscitation STATUS: The patient is a full code. The patient's mother is her surrogate healthcare decision maker. Review of Systems Constitutional: ABSENT: chills, fever(s) Eyes: ABSENT: visual disturbances Nose, Mouth, and Throat: ABSENT: headache(s) Cardiovascular: ABSENT: chest pain, dyspnea on exertion Respiratory: ABSENT: dyspnea, hemoptysis Gastrointestinal: PRESENT: abdominal pain, nausea, vomiting. ABSENT: hematemesis Genitourinary: ABSENT: dysuria Musculoskeletal: ABSENT: muscle weakness Integumentary: ABSENT: diaphoresis Neurological: ABSENT: confusion Psychiatric: PRESENT: anxiety PHYSICAL EXAMINATION: The patient is Quirino overweight.. In no acute distress at present. Selected Entries 07/23/19 16:00 Temperature 97.8 F Temperature Oral Source Pulse Rate 90 Respiratory 16 Rate Blood Pressure 107/68 Blood Pressure 81 Mean BP Location Right Arm BP Position Supine O2 Sat by Pulse 99 Oximetry Oxygen Delivery Room Air Method HEAD : Is atraumatic normocephalic. EYES: Pupils are equal round regular reactive to light and accommodation. Extraocular movements are normal. There is no conjunctival pallor. There is no scleral icterus. EARS: Tympanic membranes are intact. External auditory canals are clear. NOSE: There is no deviated nasal septum. There is no inflammation nasal mucous membrane. MOUTH: Mucous membranes of the mouth are moist. Tongue is moist. There is no ulcers. There is no bleeding from the gums. THROAT: There is no redness of the oropharynx. There is no exudates. SKIN: There is no skin lesion rashes. There is no petechia or ecchymosis. NECK: Is supple. There is no JVD. Carotids are equal there is no bruit there is no lymphadenopathy. There is no goiter. There is no accessory muscle respiration use. Trachea central. LUNGS: Is clear to auscultation percussion without any rhonchi rales or wheezing. On palpation there is no chest wall tenderness. HEART: S1-S2 is heard. There is no S3 gallop. There is no S4 gallop. There is no S3 gallop. There is systolic murmur in the left sternal border and the apex. There is no rub. ABDOMEN: Soft nontender there is no paraspinal megaly. In spite of the patient complains of epigastric pain palpation reveals no reproducible symptoms and the patient remains without any response to deep palpation. There is no rebound guarding or rigidity. Bowel sounds are well heard. EXTREMITIES: Femorals are well felt. There is no femoral bruits. Leg pulses well felt. There is no DVT or cellulitis. There is no pedal edema. There is no calf tenderness. There is no cyanosis or clubbing. RELEASE COORDINATOR: The patient is conscious, awake alert and oriented x3, with no focal deficits. PSYCHIATRIC: Today the patient psychiatric exam is remarkably normal. Judgment and insight are intact. Her affect is normal. EKG: SINUS TACHYCARDIA [LAACB] . TAQUERIA, CONSIDER BIATRIAL ABNORMALITIES [LVHVP] . PROBABLE LEFT VENTRICULAR HYPERTROPHY [T1IN] . NONSPECIFIC T ABNORMALITIES, INFERIOR LEADS ECHOCARDIOGRAM done on 06/18/2019: She has asymmetrical septal hypertrophy with a mild resting LVOT gradient of 24 mmHg. Consistent with HOCM [IHSS]. SHE HAS HYPERDYNAMIC LV CONTRACTILITY. She has mild mitral regurgitation, mild tricuspid regurgitation mild pulmonary hypertension. There is no aortic stenosis or aortic regurgitation. Labs- All tests 24 hr 07/23/19 07/23/19 07/23/19 06:31 06:31 07:16 WBC 11.5 H RBC 4.86 Hgb 12.2 Hct 37.3 MCV 77 L MCH 25.1 L MCHC 32.7 RDW 16.1 H Plt Count 385 Lymph % (Auto) 16.5 Freestone % (Auto) 6.1 Eos % (Auto) 0.2 Baso % (Auto) 1.2 Absolute Neuts (auto) 8.7 H Absolute Lymphs (auto) 1.9 Absolute Monos (auto) 0.7 Absolute Eos (auto) 0.0 Absolute Basos (auto) 0.1 Seg Neutrophils % 76.0 Sodium 135.4 L Potassium 3.9 Chloride 100 Carbon Dioxide 20 L Anion Gap 15 BUN 19 Creatinine 1.02 Est GFR ( Amer) > 60 Est GFR (MDRD) Non-Af 59 L Glucose 312 H POC Glucose 262 H Calcium 9.7 07/23/19 07/23/19 07/23/19 11:29 16:11 21:13 WBC RBC Hgb Hct MCV MCH MCHC RDW Plt Count Lymph % (Auto) Freestone % (Auto) Eos % (Auto) Baso % (Auto) Absolute Neuts (auto) Absolute Lymphs (auto) Absolute Monos (auto) Absolute Eos (auto) Absolute Basos (auto) Seg Neutrophils % Sodium Potassium Chloride Carbon Dioxide Anion Gap BUN Creatinine Est GFR ( Amer) Est GFR (MDRD) Non-Af Glucose POC Glucose 319 H 121 H 151 H Calcium IMPRESSION/RECOMMENDATION: 1. Intractable vomiting and epigastric abdominal pain: Patient for EGD in the a.m. The patient is cardiac status is stable. She should be acceptable risk for the EGD and or colonoscopy. 2. IHSS: Mild resting gradient. Patient asymptomatic. 3. Hypertension: Blood pressure well controlled 4. Diabetes mellitus: Continue antidiabetic medication and Accu-Cheks as per protocol. 4. Bipolar disorder: Appears to be stable. Continue current medication. 5. History of anxiety and depression: Continue anti-depressants and anti- anxiolytic medication. Medications reviewed. Medical regimen and management plan discussed with attending provider on the case. Discussed with the patient also. Medical decision making is of moderate complexity. 60 minutes spent as patient more than 50% of time spent in direct patient care. Will follow
[2019-07-23] MEDS: ATORVASTATIN CALCIUM 80 MG TABLET PO SCH (21:19)
[2019-07-23] MEDS: AMITRIPTYLINE HCL 25 MG TABLET PO SCH (21:21)
[2019-07-23] MEDS ORDERED: INSULIN GLARGINE,HUM.REC.ANLOG 1,000 UNIT/10 ML VIAL SUBCUT SCH (22:00)
[2019-07-24 07:19] LABS: HEMATOCRIT 35.8 % (36.0-47.0); HEMOGLOBIN 11.9 g/dL (12.0-15.5); MEAN CORPUSCULAR HEMOGLOBIN 25.7 pg (27.0-33.4); MEAN CORPUSCULAR HGB CONC 33.2 g/dL (32.0-36.0); MEAN CORPUSCULAR VOLUME 77 fl (80-97); PLATELET COUNT 364 10^3/uL (150-450); RED BLOOD COUNT 4.63 10^6/uL (3.72-5.28); RED CELL DISTRIBUTION WIDTH 15.9 % (11.5-14.0); WHITE BLOOD COUNT 7.6 10^3/uL (4.0-10.5)
[2019-07-24 07:33] LABS: INTERNATIONAL RATION (INR) 0.97; PROTHROMBIN TIME 12.9 SEC (11.4-15.4)
[2019-07-24 07:37] LABS: ANION GAP 12 (5-19); BLOOD UREA NITROGEN 35 mg/dL (7-20); CALCIUM 9.9 mg/dL (8.4-10.2); CARBON DIOXIDE 22 mmol/L (22-30); CHLORIDE 102 mmol/L (98-107); GLUCOSE 126 mg/dL (75-110); POTASSIUM 4.2 mmol/L (3.6-5.0)
[2019-07-24] MEDS: SUCRALFATE 1 GM TABLET PO SCH ×4 (08:12→21:10)
[2019-07-24] MEDS: INSULIN LISPRO 100 UNIT/ML 3 ML VIAL SUBCUT SCH ×4 (08:12→21:11)
[2019-07-24] MEDS: MAG HYDROX/AL HYDROX/SIMETH SUSP 30 ML UDCUP PO SCH ×4 (08:13→21:09)
[2019-07-24] MEDS ORDERED: NORMAL SALINE 1000 ML 1,000 ML IV ONE (08:21)
[2019-07-24] MEDS: PANTOPRAZOLE SODIUM 40 MG VIAL IV SCH ×2 (09:33→17:30)
[2019-07-24] MEDS: LISINOPRIL 10 MG TABLET PO SCH ×2 (09:35→21:10)
[2019-07-24] MEDS: AMLODIPINE BESYLATE 10 MG TABLET PO SCH (09:35)
[2019-07-24] MEDS: METOPROLOL SUCCINATE 25 MG TAB.SR.24H PO SCH ×2 (09:35→21:10)
[2019-07-24] MEDS: DULOXETINE HCL 20 MG CAPSULE.DR PO SCH ×2 (09:35→21:09)
[2019-07-24] MEDS: BUSPIRONE HCL 10 MG TABLET PO SCH ×2 (09:36→21:09)
[2019-07-24] MEDS: ENOXAPARIN SODIUM INJ 40 MG/0.4 ML DISP.SYRIN SUBCUT SCH (09:41)
[2019-07-24] MEDS ORDERED: ONDANSETRON HCL INJ/PF 4 MG/2 ML SDV ONE (12:07)
[2019-07-24] MEDS ORDERED: MIDAZOLAM 2 MG/2 ML INJ ONE (12:07)
[2019-07-24] MEDS ORDERED: NALOXONE HCL INJ/PF 0.4 MG/1 ML SDV ONE (12:07)
[2019-07-24] MEDS ORDERED: DIPHENHYDRAMINE HCL 50 MG/ML VIAL ONE (12:07)
[2019-07-24] MEDS ORDERED: FENTANYL CITRATE INJ/PF 100 MCG/2 ML AMPUL ONE (12:07)
[2019-07-24] MEDS ORDERED: GLUCAGON,HUMAN RECOMB 1 MG INJ ONE (12:08)
[2019-07-24] MEDS ORDERED: FLUMAZENIL INJ 0.5 MG/5 ML VIAL ONE (12:08)
[2019-07-24] MEDS ORDERED: EPINEPHRINE INJ 1 MG/10 ML DISP.SYRIN ONE (12:08)
--- NOTE | 2019-07-24 12:51 | Operative Report ---
Nonrecallable Operative Report DATE OF SURGERY: 07/24/19 PREOPERATIVE DIAGNOSIS: Abdominal pain history of esophagitis POSTOPERATIVE DIAGNOSIS: Gastritis duodenitis mild esophagitis OPERATION: Esophagogastroduodenoscopy with gastric biopsy SURGEON: BHARGAV JONES ANESTHESIA: Moderate Sedation TISSUE REMOVED OR ALTERED: Gastric biopsy COMPLICATIONS: None ESTIMATED BLOOD LOSS: 0 INTRAOPERATIVE FINDINGS: See note PROCEDURE: Patient was brought to the endoscopy suite awake alert stable condition complaining of epigastric pain. After giving a small amount of fentanyl and Versed her pain resolved and she was able to relax. Anesthesia was with Versed and fentanyl. After proper timeout site verification the procedure commenced. The Olympus gastroscope was passed into the posterior pharynx and easily traversed the upper esophageal sphincters into the esophagus and then into the stomach. Upon reaching the stomach there was a moderate to large amount of gastric fluid that was greenish in color mixed with Carafate which was suctioned free. We then were able to identify the pylorus and the pylorus was easily intubated was widely patent. Examination the first and second portion of the duodenum revealed it to be normal without any evidence of mucosal abnormalities. As we slowly withdrew the scope out of the duodenum the prepyloric area looked slightly erythematous consistent with distal gastritis. We slowly then examined the body antrum and fundus of the stomach. The body and antrum appeared to be normal. However upon retroflexing the scope I noted that at near the cardia there was a patchy area of significant gastritis that was erythematous it was nonbleeding it was bi opsied. The scope was then slowly withdrawn into the distal esophagus and then back into the stomach and we reexamined the cardio and noted a moderate sized hiatal hernia. The scope was then slowly again withdrawn the distal esophagus appeared to be relatively normal except for some very mild esophagitis photodocumentation was obtained. The scope was then slowly withdrawn. Findings #1 widely patent pylorus without evidence of stricture or stenosis. 2. Mild distal gastritis. 3. Patchy gastritis in the cardia of the stomach biopsied. 4. Moderate sized hiatal hernia. 5. Very mild distal esophagitis. Recommendations; #1 await biopsy results of the gastric cardia. We will continue Carafate and a proton pump inhibitor. 3. Endoscopic findings are not consistent with the patient's symptoms. 4. Please reconsult surgery as necessary
[2019-07-24] MEDS: NORMAL SALINE 1000 ML 1,000 ML IV PRN (16:18)
--- NOTE | 2019-07-24 17:20 | PDOC PROGRESS REPORT ---
Subjective Progress Note for:: 07/24/19 Subjective:: Today patient persisted in Requesting Morphine for Treatment of Abdominal Pain. States That She Cannot Take Tylenol Because She Would Throw It up. Patient underwent upper endoscopy. Reason For Visit: INTRACTABLE VOMITING SEVERE ESOPHAGITIS REQUIRING Physical Exam Vital Signs: Temp Pulse Resp BP Pulse Ox 97.9 F 87 16 113/69 100 07/24/19 16:00 07/24/19 16:00 07/24/19 16:00 07/24/19 16:00 07/24/19 16:00 Intake & Output 07/23/19 07/24/19 07/25/19 06:59 06:59 06:59 Intake Total 270 2019 1000 Balance 270 2019 1000 Weight 67.8 kg 67.1 kg General appearance: PRESENT: no acute distress, cooperative Neck exam: ABSENT: JVD Respiratory exam: PRESENT: clear to auscultation bernardo, symmetrical, unlabored. ABSENT: tachypnea, wheezes Cardiovascular exam: PRESENT: RRR, +S1, +S2. ABSENT: tachycardia GI/Abdominal exam: PRESENT: normal bowel sounds, soft. ABSENT: rebound, rigid, tenderness Neurological exam: PRESENT: alert, awake, oriented to person, oriented to place, oriented to time Results Laboratory Results: 07/24/19 05:45 07/24/19 05:45 07/24/19 07/24/19 05:45 05:45 WBC 7.6 RBC 4.63 Hgb 11.9 L Hct 35.8 L MCV 77 L MCH 25.7 L MCHC 33.2 RDW 15.9 H Plt Count 364 Sodium 136.3 L Potassium 4.2 Chloride 102 Carbon Dioxide 22 Anion Gap 12 BUN 35 H Creatinine 1.88 H Est GFR ( Amer) 35 L Glucose 126 H Calcium 9.9 Magnesium 2.2 Assessment and Plan - Diagnosis (1) Intractable vomiting Qualifiers: Vomiting type: unspecified Nausea presence: with nausea Qualified Code(s): R11.2 - Nausea with vomiting, unspecified Is this a current diagnosis for this admission?: Yes Plan: UDS negative. Gastric emptying study done in 2018 was normal. Acute abdominal series unremarkable. Upper endoscopy done today showing some gastritis but not severe and only very mild esophagitis, patent upper GI tract without any strictures. Clearly no clear physical cause for her vomiting antiemetics as needed Patient now able to tolerate diet (2) ARF (acute renal failure) Qualifiers: Acute renal failure type: unspecified Qualified Code(s): N17.9 - Acute kidney failure, unspecified Is this a current diagnosis for this admission?: Yes Plan: Give IVF and monitor response with BMP in am. (3) Hypertensive urgency Is this a current diagnosis for this admission?: Yes Plan: Continue metoprolol and amlodipine and lisinopril (4) Anxiety Is this a current diagnosis for this admission?: Yes Plan: buspirone, duloxetine and amitriptyline as well as hydroxyzine as needed. (5) Type 2 diabetes mellitus Qualifiers: Diabetes mellitus intermodal dispatcher insulin use: with penitentiary use Diabetes mellitus complication status: with hyperglycemia Qualified Code(s): E11.65 - Type 2 diabetes mellitus with hyperglycemia; Z79.4 - halfway (current) use of insulin Is this a current diagnosis for this admission?: Yes Plan: Hyperglycemic this am. 30 units tonight. Continue sliding scale and Accu-Cheks. (6) HOCM (hypertrophic obstructive cardiomyopathy) Is this a current diagnosis for this admission?: Yes Plan: Continue metoprolol. (7) Sinus tachycardia Is this a current diagnosis for this admission?: Yes Plan: Resolved. (8) Leukocytosis Qualifiers: Leukocytosis type: unspecified Qualified Code(s): D72.829 - Elevated white blood cell count, unspecified Is this a current diagnosis for this admission?: Yes Plan: Seems to be due to hemoconcentration likely. resolved w/o abx. - Time Time Spent with patient: 15-24 minutes
[2019-07-24] MEDS: ATORVASTATIN CALCIUM 80 MG TABLET PO SCH (21:09)
[2019-07-24] MEDS: AMITRIPTYLINE HCL 25 MG TABLET PO SCH (21:10)
[2019-07-24] MEDS ORDERED: INSULIN GLARGINE,HUM.REC.ANLOG 1,000 UNIT/10 ML VIAL SUBCUT SCH (22:00)
--- NOTE | 2019-07-24 23:37 | Progress Note ---
Provider Note Provider Note: CARDIOLOGY PROGRESS NOTE by Dr. Buffy Guajardo on 07/24/2019. Subjective: The patient had a EGD done which showed only gastritis. The patient has had a history of chronic abdominal pain. There is no chest pain she denies any abdominal pain at present. There is no shortness of breath. There is no PND orthopnea. There is no palpitations. There is no near syncope syncope or dizziness. There is no TIA CVA symptoms. PHYSICAL EXAMINATION: The patient is well-built. In no acute distress. Selected Entries 07/24/19 16:00 Temperature 97.9 F Temperature Oral Source Pulse Rate 87 Respiratory 16 Rate Blood Pressure 113/69 [Left Upper Arm ] Blood Pressure 83 Mean [Left Upper Arm] Blood Pressure Supine Position [Left Upper Arm] O2 Sat by Pulse 100 Oximetry Oxygen Delivery Room Air Method ( includes room air) HEAD : Is atraumatic normocephalic. EYES: Pupils are equal round regular reactive to light and accommodation. Extraocular movements are normal. There is no conjunctival pallor. There is no scleral icterus. EARS: Tympanic membran es are intact. External auditory canals are clear. NOSE: There is no deviated nasal septum. There is no inflammation nasal mucous membrane. MOUTH: Mucous membranes of the mouth are moist. Tongue is moist. There is no ulcers. There is no bleeding from the gums. THROAT: There is no redness of the oropharynx. There is no exudates. SKIN: There is no skin lesion rashes. There is no petechia or ecchymosis. NECK: Is supple. There is no JVD. Carotids are equal there is no bruit there is no lymphadenopathy. There is no goiter. There is no accessory muscle respiration use. Trachea central. LUNGS: Is clear to auscultation percussion without any rhonchi rales or wheezing. On palpation there is no chest wall tenderness. HEART: S1-S2 is heard. There is no S3 gallop. There is no S4 gallop. There is no S3 gallop. There is systolic murmur in the left sternal border and the apex. There is no rub. ABDOMEN: Soft nontender there is no paraspinal megaly. In spite of the patient complains of epigastric pain palpation reveals no reproducible symptoms and the patient remains without any response to deep palpation. There is no rebound guarding or rigidity. Bowel sounds are well heard. EXTREMITIES: Femorals are well felt. There is no femoral bruits. Leg pulses well felt. There is no DVT or cellulitis. There is no pedal edema. There is no calf tenderness. There is no cyanosis or clubbing. 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 PSYCHIATRIC: Today the patient psychiatric exam is remarkably normal. Judgment and insight are intact. Her affect is normal. Labs- All tests 24 hr 07/24/19 07/24/19 07/24/19 05:45 05:45 05:45 WBC 7.6 RBC 4.63 Hgb 11.9 L Hct 35.8 L MCV 77 L MCH 25.7 L MCHC 33.2 RDW 15.9 H Plt Count 364 PT 12.9 INR 0.97 Sodium 136.3 L Potassium 4.2 Chloride 102 Carbon Dioxide 22 Anion Gap 12 BUN 35 H Creatinine 1.88 H Est GFR ( Amer) 35 L Est GFR (MDRD) Non-Af 29 L Glucose 126 H POC Glucose Calcium 9.9 Magnesium 2.2 07/24/19 07/24/19 07/24/19 07:58 13:43 16:25 WBC RBC Hgb Hct MCV MCH MCHC RDW Plt Count PT INR Sodium Potassium Chloride Carbon Dioxide Anion Gap BUN Creatinine Est GFR ( Amer) Est GFR (MDRD) Non-Af Glucose POC Glucose 122 H 102 95 Calcium Magnesium 07/24/19 21:05 WBC RBC Hgb Hct MCV MCH MCHC RDW Plt Count PT INR Sodium Potassium Chloride Carbon Dioxide Anion Gap BUN Creatinine Est GFR ( Amer) Est GFR (MDRD) Non-Af Glucose POC Glucose 151 H Calcium Magnesium MPRESSION/RECOMMENDATION: 1. Intractable vomiting and epigastric abdominal pain: Patient for EGD in the a.m. The patient is cardiac status is stable. She should be acceptable risk for the EGD and or colonoscopy. 2. IHSS: Mild resting gradient. Patient asymptomatic. 3. Hypertension: Blood pressure well controlled 4. Diabetes mellitus: Continue antidiabetic medication and Accu-Cheks as per protocol. 4. Bipolar disorder: Appears to be stable. Continue current medication. 5. History of anxiety and depression: Continue anti-depressants and anti- anxiolytic medication. Medications reviewed. Medical regimen and management plan discussed with attending provider on the case. Discussed with the patient also. Medical decision making is of moderate complexity. 60 minutes spent as patient more than 50% of time spent in direct patient care. Will sign off and follow the patient in the office. In the office visit we will arrange for the patient to have a cardiac MRI to quantify the patient's IHSS as an outpatient to be done at [facility].
[2019-07-25] MEDS: DICYCLOMINE HCL 10 MG CAPSULE PO PRN ×2 (04:51→11:35)
[2019-07-25] MEDS: HYDROXYZINE PAMOATE 25 MG CAPSULE PO PRN ×2 (05:12→14:05)
[2019-07-25] MEDS: MAG HYDROX/AL HYDROX/SIMETH SUSP 30 ML UDCUP PO SCH ×2 (05:12→13:20)
[2019-07-25 05:56] LABS: ANION GAP 9 (5-19); BLOOD UREA NITROGEN 31 mg/dL (7-20); CALCIUM 9.2 mg/dL (8.4-10.2); CARBON DIOXIDE 24 mmol/L (22-30); CHLORIDE 104 mmol/L (98-107); GLUCOSE 134 mg/dL (75-110); POTASSIUM 3.8 mmol/L (3.6-5.0)
[2019-07-25] MEDS ORDERED: ACETAMINOPHEN 325 MG TABLET ONE (07:37)
[2019-07-25] MEDS: PROMETHAZINE HCL INJ 25 MG/1 ML VIAL IV PRN ×2 (07:40→14:05)
[2019-07-25] MEDS ORDERED: LORAZEPAM INJ 2 MG/1 ML VIAL ONE (07:54)
[2019-07-25] MEDS: SUCRALFATE 1 GM TABLET PO SCH ×2 (07:56→11:19)
[2019-07-25] MEDS ORDERED: ACETAMINOPHEN 325 MG TABLET PO ONE (08:15)
[2019-07-25] MEDS ORDERED: LORAZEPAM INJ 2 MG/1 ML VIAL IV ONE (08:30)
[2019-07-25] MEDS: INSULIN LISPRO 100 UNIT/ML 3 ML VIAL SUBCUT SCH ×2 (08:43→13:21)
[2019-07-25] MEDS ORDERED: POLYETHYLENE GLYCOL 3350 POWDER 17 GM/1 PACKET PO ONE (09:00)
[2019-07-25] MEDS: BUSPIRONE HCL 10 MG TABLET PO SCH (09:48)
[2019-07-25] MEDS: AMLODIPINE BESYLATE 10 MG TABLET PO SCH (09:48)
[2019-07-25] MEDS: PANTOPRAZOLE SODIUM 40 MG VIAL IV SCH (09:48)
[2019-07-25] MEDS: METOPROLOL SUCCINATE 25 MG TAB.SR.24H PO SCH (09:48)
[2019-07-25] MEDS: ENOXAPARIN SODIUM INJ 40 MG/0.4 ML DISP.SYRIN SUBCUT SCH (09:49)
[2019-07-25] MEDS: DULOXETINE HCL 20 MG CAPSULE.DR PO SCH (09:49)
[2019-07-25] MEDS ORDERED: LISINOPRIL 10 MG TABLET PO SCH ×2 (10:00→18:00)
[2019-07-25 11:15] VITALS: BP 181/94
[2019-07-25] MEDS: ONDANSETRON HCL INJ/PF 4 MG/2 ML SDV IV PRN (11:35)
[2019-07-25] MEDS ORDERED: MORPHINE SULFATE 10 MG/ML INJ IV ONE (15:30)
--- NOTE | 2019-07-25 16:00 | PDOC DISCHARGE SUMMARY ---
Impression - Admit/DC Date/PCP Admission Date/Primary Care Provider: 07/23/19 17:21 GLEN MCGRATH PA-C Discharge Date: 07/25/19 - Discharge Diagnosis (1) Intractable vomiting Is this a current diagnosis for this admission?: Yes (2) Chronic abdominal pain Is this a current diagnosis for this admission?: Yes (3) ARF (acute renal failure) Is this a current diagnosis for this admission?: Yes (4) Drug-seeking behavior Is this a current diagnosis for this admission?: Yes (5) Hypertensive urgency Is this a current diagnosis for this admission?: Yes (6) Anxiety Is this a current diagnosis for this admission?: Yes (7) Type 2 diabetes mellitus Is this a current diagnosis for this admission?: Yes (8) HOCM (hypertrophic obstructive cardiomyopathy) Is this a current diagnosis for this admission?: Yes (9) Sinus tachycardia Is this a current diagnosis for this admission?: Yes (10) Leukocytosis Is this a current diagnosis for this admission?: Yes - Additional Information Resuscitation Status: Full Code Discharge Diet: Diabetic Discharge Activity: Activity As Tolerated Referrals: GLEN MCGRATH PA-C [Primary Care Provider] - 07/28/19 1:45 pm Prescriptions: RX: Sucralfate [Carafate 1 gm Tablet] 1 gm PO MEALS #90 RX: Amlodipine Besylate [Norvasc 10 mg Tablet] 10 mg PO DAILY #30 RX: Lisinopril [Prinivil 10 mg Tablet] 20 mg PO DAILY 30 Days tablet RX: Pantoprazole Sodium [Protonix [address] Tablet] 40 mg PO BID #60 RX: Metoprolol Succinate [Toprol Xl 50 mg Tab.sr] 75 mg PO Q12 30 Days Ondansetron [Zofran Odt 4 mg Tablet] 4 mg PO Q4HP PRN #30 tab.rapdis PRN Reason: For Nausea/Vomiting Home Medications: RX: Amitriptyline HCl [Elavil 25 mg Tablet] 25 mg PO QHS 07/22/19 RX: Buspirone HCl [Buspar 10 mg Tablet] 10 mg PO DAILY 07/22/19 RX: Clonidine [Catapres-Tts 2 (0.2 mg/24 Hr) Transderm Ptch] 1 patch TD DIALLO@1000 07/22/19 RX: Dicyclomine HCl [Bentyl 10 mg Capsule] 10 mg PO QID 07/22/19 RX: Duloxetine HCl [Cymbalta 20 mg Capsule.dr] 20 mg PO BID 07/22/19 RX: Empagliflozin [Jardiance] 25 mg PO DAILY 07/22/19 RX: Hydroxyzine HCl [Atarax 10 mg Tablet] 25 mg PO Q8HP PRN 07/22/19 RX: Insulin Aspart [Novolog Flexpen] 0 unit SUBCUT .SLD SCALE 07/22/19 RX: Insulin Glargine,Hum.rec.anlog [Lantus Insulin 100 Unit/1 ml 10 ml] 30 unit SUBCUT DAILY 07/22/19 RX: Phenobarbital [Phenobarbital 20 mg/5 ml Elixir Udcup] 5 ml PO BIDP PRN 07/22/19 RX: Rosuvastatin Calcium [Crestor] 40 mg PO DAILY 07/22/19 Ondansetron [Zofran Odt 4 mg Tablet] 4 mg PO Q4HP PRN #30 tab.rapdis 07/23/19 RX: Amlodipine Besylate [Norvasc 10 mg Tablet] 10 mg PO DAILY #30 07/23/19 RX: Metoprolol Succinate [Toprol Xl 50 mg Tab.sr] 75 mg PO Q12 30 Days 07/23/19 RX: Pantoprazole Sodium [Protonix [address] Tablet] 40 mg PO BID #60 07/23/19 RX: Sucralfate [Carafate 1 gm Tablet] 1 gm PO MEALS #90 07/23/19 RX: Lisinopril [Prinivil 10 mg Tablet] 20 mg PO DAILY 30 Days tablet 07/25/19 History of Present Illiness History of Present Illness: RUTH CA is a 44 year old female with a history of type 2 diabetes mellitus, intractable vomiting, questionable gastroparesis, hypertension, who presents to the hospital with complaints of intractable vomiting since yesterday morning. This is a chronic issue for patient which has been going on for the past several years occurring about once or twice a month. Patient denies any marijuana use or other illicit drugs. She has had several episodes of nonbilious vomiting since then and has been unable to tolerate p.o. She has also not been able to tolerate some of her medications due to this. Patient admits to abdominal pain located in her epigastric region which she described as a burning sensation and denies any aggravating/alleviating factors. States pain is about a 5/5. Denies radiation. Patient did have a recent abdominal CT scan last month which showed findings suggestive of esophagitis/gastritis but otherwise benign. Symptoms seem somewhat similar. Noted to be significantly hypertensive in the ER and given metoprolol and clonidine patch. Subsequently r eferred to hospitalist service for admission. Hospital Course Hospital Course: Patient was admitted for evaluation and management of intractable nausea vomiti ng. Her blood sugar was also elevated and she was hypertensive at the time. Of note, patient has been to the ER several times always with the same presentation of writhing in pain and dry heaving. On this occasion, patient was treated with Ativan, Zofran and Phenergan and adequately hydrated. Leukocytosis was observed which was likely secondary to hemoconcentration from dehydration and it resolved without any antibiotics. Blood pressure normalized with resumption of her blood pressure medications. Of note, I stopped her clonidine giving history of noncompliance which puts her at high risk for rebound hypertension. I resume patient's lisinopril which she states that she takes at home. He has been tolerating oral diet. On attempt to discharge patient yesterday, she was initially normal but 1 hour after I told her I will be discharging her, I was informed that she was writhing in pain again noted in the epigastric area. EGD was performed. Patient's work-up for abdominal pain are as follows: Abdominal MRI in 2014: Did not show any evidence of any findings to cause abdominal pain Gastric emptying study 01/2018: Normal. No evidence of gastroparesis. CT abdomen and pelvis 05/2019: Did not show any cause of her significant epigastric pain but did show signs of esophagitis Acute abdominal series 07/20/2019: Unremarkable study with no acute abdominal pathology noted. No evidence of constipation/obstruction. EGD 07/24/2019: Very mild esophagitis, some gastritis (biopsy taken), NO strictures/no outlet obstruction Today once again patient continues to complain of excessive 10/10 abdominal pain in epigastrium, refuses Tylenol. States tramadol does not help her and that the only thing she wants is morphine or Dilaudid. She persists following staff around asking for Morphine. Also, she asked for some Haldol and Benadryl. At this point, given that all the studies have not showed any physical cause for the degree of epigastric pain that she complains about leading me to suspect DRUG SEEKING Behavior or chronic pain syndrome/somatization. I have discharged patient with protonix and carafate for tx of her gastritis and have recommended to patient and daughter to follow up with pain management and Psychiatry for further evaluation. I have recommended against continuous use of narcotics for treatment of her chronic abdominal pain at this time given high propensity for a ddiction and overdose. Physical Exam Vital Signs: Temp Pulse Resp BP Pulse Ox 98.2 F 111 H 22 H 181/94 H 100 07/25/19 11:14 07/25/19 14:00 07/25/19 11:14 07/25/19 11:14 07/25/19 11:14 Intake & Output 07/24/19 07/25/19 07/26/19 06:59 06:59 06:59 Intake Total 2019 1236 Balance 2019 1236 Weight 67.1 kg 67.9 kg General appearance: PRESENT: cooperative, other - In bed writhing in pain. Writhing gets significantly exaggerated once I entered room. Neck exam: ABSENT: JVD Respiratory exam: PRESENT: clear to auscultation bernardo, symmetrical, unlabored. ABSENT: wheezes Cardiovascular exam: PRESENT: +S1, +S2 GI/Abdominal exam: PRESENT: normal bowel sounds, soft. ABSENT: ascites, distended, firm, guarding, mass, rebound, rigid Extremities exam: ABSENT: calf tenderness, joint swelling Neurological exam: PRESENT: alert, awake Psychiatric exam: PRESENT: agitated, anxious, unusual affect Results Laboratory Results: WBC 7.6 10^3/uL (4.0-10.5) 07/24/19 05:45 RBC 4.63 10^6/uL (3.72-5.28) 07/24/19 05:45 Hgb 11.9 g/dL (12.0-15.5) L 07/24/19 05:45 Hct 35.8 % (36.0-47.0) L 07/24/19 05:45 MCV 77 fl (80-97) L 07/24/19 05:45 MCH 25.7 pg (27.0-33.4) L 07/24/19 05:45 MCHC 33.2 g/dL (32.0-36.0) 07/24/19 05:45 RDW 15.9 % (11.5-14.0) H 07/24/19 05:45 Plt Count 364 10^3/uL (150-450) 07/24/19 05:45 Lymph % (Auto) 16.5 % (13-45) 07/23/19 06:31 [place] % (Auto) 6.1 % (3-13) 07/23/19 06:31 Eos % (Auto) 0.2 % (0-6) 07/23/19 06:31 Baso % (Auto) 1.2 % (0-2) 07/23/19 06:31 Absolute Neuts (auto) 8.7 10^3/uL (1.7-8.2) H 07/23/19 06:31 Absolute Lymphs (auto) 1.9 10^3/uL (0.5-4.7) 07/23/19 06:31 Absolute Monos (auto) 0.7 10^3/uL (0.1-1.4) 07/23/19 06:31 Absolute Eos (auto) 0.0 10^3/uL (0.0-0.6) 07/23/19 06:31 Absolute Basos (auto) 0.1 10^3/uL (0.0-0.2) 07/23/19 06:31 Seg Neutrophils % 76.0 % (42-78) 07/23/19 06:31 PT 12.9 SEC (11.4-15.4) 07/24/19 05:45 INR 0.97 07/24/19 05:45 Sodium 137.4 mmol/L (137-145) 07/25/19 04:23 Potassium 3.8 mmol/L (3.6-5.0) 07/25/19 04:23 Chloride 104 mmol/L (98-107) 07/25/19 04:23 Carbon Dioxide 24 mmol/L (22-30) 07/25/19 04:23 Anion Gap 9 (5-19) 07/25/19 04:23 BUN 31 mg/dL (7-20) H 07/25/19 04:23 Creatinine 1.18 mg/dL (0.52-1.25) 07/25/19 04:23 Est GFR ( Amer) > 60 (>60) 07/25/19 04:23 Est GFR (Non-Af Amer) Cancelled 07/21/19 14:13 Est GFR (MDRD) Non-Af 50 (>60) L 07/25/19 04:23 Glucose 134 mg/dL (75-110) H 07/25/19 04:23 POC Glucose 167 mg/dL (70-110) H 07/25/19 12:41 Lactic Acid 3.0 mmol/L (0.7-2.1) H 07/21/19 16:25 Calcium 9.2 mg/dL (8.4-10.2) 07/25/19 04:23 Phosphorus 2.6 mg/dL (2.5-4.5) 07/22/19 06:57 Magnesium 2.2 mg/dL (1.6-2.3) 07/24/19 05:45 Total Bilirubin 0.5 mg/dL (0.2-1.3) 07/22/19 06:57 Direct Bilirubin 0.0 mg/dL (0.0-0.4) 07/22/19 06:57 Neonat Total Bilirubin Not Reportable 07/22/19 06:57 Neonat Direct Bilirubin Not Reportable 07/22/19 06:57 Neonat Indirect Bili Not Reportable 07/22/19 06:57 AST 18 U/L (14-36) 07/22/19 06:57 ALT 14 U/L (<35) 07/22/19 06:57 Alkaline Phosphatase 117 U/L (38-126) 07/22/19 06:57 Total Protein 7.7 g/dL (6.3-8.2) 07/22/19 06:57 Albumin 4.3 g/dL (3.5-5.0) 07/22/19 06:57 Lipase 108.6 U/L (23-300) 07/21/19 16:25 EGFR Cancelled 07/21/19 14:13 Urine Color STRAW 07/21/19 13:30 Urine Appearance CLEAR 07/21/19 13:30 Urine pH 5.0 (5.0-9.0) 07/21/19 13:30 Ur Specific [place] 1.021 07/21/19 13:30 Urine Protein 30 mg/dL (NEGATIVE) H 07/21/19 13:30 Urine Glucose (UA) >=500 mg/dL (NEGATIVE) H 07/21/19 13:30 Urine Ketones 80 mg/dL (NEGATIVE) H 07/21/19 13:30 Urine Blood NEGATIVE (NEGATIVE) 07/21/19 13:30 Urine Nitrite NEGATIVE (NEGATIVE) 07/21/19 13:30 Urine Bilirubin NEGATIVE (NEGATIVE) 07/21/19 13:30 Urine Urobilinogen NEGATIVE mg/dL (<2.0) 07/21/19 13:30 Ur Leukocyte Esterase NEGATIVE (NEGATIVE) 07/21/19 13:30 Urine WBC (Auto) 1 /HPF 07/21/19 13:30 U Hyaline Cast (Auto) 1 /LPF 07/21/19 13:30 Squamous Epi Cells Auto <1 /HPF 07/21/19 13:30 Urine Mucus (Auto) RARE /LPF 07/21/19 13:30 Urine Ascorbic Acid NEGATIVE (NEGATIVE) 07/21/19 13:30 Urine Opiates Screen NEGATIVE 07/21/19 13:30 Urine Methadone Screen NEGATIVE 07/21/19 13:30 Ur Barbiturates Screen NEGATIVE 07/21/19 13:30 Ur Phencyclidine Scrn NEGATIVE 07/21/19 13:30 Ur Amphetamines Screen NEGATIVE 07/21/19 13:30 U Benzodiazepines Scrn NEGATIVE 07/21/19 13:30 Urine Cocaine Screen NEGATIVE 07/21/19 13:30 U Marijuana (THC) Screen NEGATIVE 07/21/19 13:30 Plan Time Spent: Greater than 30 Minutes Stroke Is this a Stroke Patient?: No Acute Heart Failure - Is this a Heart Failure Patient?: No
[2019-07-26] MEDS ORDERED: CLONIDINE 0.2 MG/24 HR PATCH.TDWK TD SCH (10:00)
== END 2019-07-25 15:55 | disposition home or self-care (01) | DRG 392 ==
LOC: ER 12:21 → EH 18:37 → INTOOBSV 18:37 → EH 07-22 09:10 → 5 07-22 15:55 → OBSVTOIN 07-23 17:21
PROVIDERS: ADMIT Internal Medicine; ATTEND Internal Medicine
PROC: 0DB78ZX Excision of Stomach, Pylorus, Via Natural or Artificial Opening Endoscopic, Diagnostic (ICD-10-PCS; principal; 2019-07-24 12:30)
DX: K29.70 Gastritis, unspecified, without bleeding (principal); I42.1 Obstructive hypertrophic cardiomyopathy; N17.9 Acute kidney failure, unspecified; K20.9 Esophagitis, unspecified; E11.65 Type 2 diabetes mellitus with hyperglycemia; D64.9 Anemia, unspecified; R58 Hemorrhage, not elsewhere classified; E78.5 Hyperlipidemia, unspecified; I10 Essential (primary) hypertension; K21.9 Gastro-esophageal reflux disease without esophagitis; K44.9 Diaphragmatic hernia without obstruction or gangrene; M19.90 Unspecified osteoarthritis, unspecified site; L30.9 Dermatitis, unspecified; I16.0 Hypertensive urgency; T46.5X6A Underdosing of other antihypertensive drugs, initial encounter; Z76.5 Malingerer [conscious simulation]; F31.9 Bipolar disorder, unspecified; F41.9 Anxiety disorder, unspecified; E86.0 Dehydration; R00.0 Tachycardia, unspecified; D72.829 Elevated white blood cell count, unspecified; Z86.14 Personal history of Methicillin resistant Staphylococcus aureus infection; Z91.138 Patient's unintentional underdosing of medication regimen for other reason; Z90.49 Acquired absence of other specified parts of digestive tract; Z82.49 Family history of ischemic heart disease and other diseases of the circulatory system; Z83.3 Family history of diabetes mellitus; Z88.8 Allergy status to other drugs, medicaments and biological substances; Z79.4 Long term (current) use of insulin
CPT/HCPCS: 36415; 43239; 74022; 80048; 80053; 80307; 81001; 82962; 83605; 83690; 83735; 84100; 84702; 84703; 85025; 85027; 85610; 87070; 88305; 88342; 93005; 93010; 96361; 96374; 96375; 96376; 99284; C9113; G0378; J0171; J0360; J1200; J1610; J1650; J1815; J2060; J2250; J2270; J2310; J2405; J2550; J3010; J3490; J7030; J7120

== ENCOUNTER 2019-08-03 01:51 | Emergency (ER) | payer MEDICARE, MEDICAID ==
[2019-08-03 02:54] LABS: ABSOLUTE LYMPHOCYTES (AUTO) 1.4 10^3/uL (0.5-4.7); ABSOLUTE MONOCYTES (AUTO) 0.7 10^3/uL (0.1-1.4); ABSOLUTE NEUT (AUTO) 8.1 10^3/uL (1.7-8.2); BASOPHILS % (AUTO) 0.4 % (0-2); EOSINOPHILS % (AUTO) 0.2 % (0-6); HEMATOCRIT 35.3 % (36.0-47.0); HEMOGLOBIN 11.8 g/dL (12.0-15.5); LYMPHOCYTES % (AUTO) 13.7 % (13-45); MEAN CORPUSCULAR HEMOGLOBIN 25.7 pg (27.0-33.4); MEAN CORPUSCULAR HGB CONC 33.4 g/dL (32.0-36.0); MEAN CORPUSCULAR VOLUME 77 fl (80-97); MONOCYTES % (AUTO) 6.9 % (3-13); PLATELET COUNT 348 10^3/uL (150-450); RED BLOOD COUNT 4.59 10^6/uL (3.72-5.28); RED CELL DISTRIBUTION WIDTH 16.6 % (11.5-14.0); SEGMENTED NEUTROPHILS % (AUTO) 78.8 % (42-78); TOTAL CELLS COUNTED % (AUTO) 100 %; WHITE BLOOD COUNT 10.3 10^3/uL (4.0-10.5)
[2019-08-03 03:15] LABS: ALBUMIN 4.7 g/dL (3.5-5.0); ALKALINE PHOSPHATASE 116 U/L (38-126); ANION GAP 15 (5-19); ASPARTATE AMINO TRANSFERASE 30 U/L (14-36); BILIRUBIN,DIRECT 0.4 mg/dL (0.0-0.4); BILIRUBIN,TOTAL 0.6 mg/dL (0.2-1.3); BLOOD UREA NITROGEN 10 mg/dL (7-20); CALCIUM 10.2 mg/dL (8.4-10.2); CARBON DIOXIDE 23 mmol/L (22-30); CHLORIDE 101 mmol/L (98-107); GLUCOSE 294 mg/dL (75-110); TOTAL PROTEIN 8.6 g/dL (6.3-8.2)
[2019-08-03] MEDS ORDERED: HALOPERIDOL LACTATE INJ 5 MG/1 ML VIAL IM ONE (05:09)
[2019-08-03] MEDS ORDERED: DIPHENHYDRAMINE HCL 50 MG/ML VIAL IV ONE (05:09)
[2019-08-03] MEDS ORDERED: NORMAL SALINE 1000 ML 1,000 ML IV ONE (05:09)
[2019-08-03] MEDS ORDERED: PANTOPRAZOLE SODIUM 40 MG VIAL IV ONE (05:09)
--- NOTE | 2019-08-03 05:11 | ER Document Report ---
ED Medical Screen (RME) - General Chief Complaint: Abdominal Pain Stated Complaint: ABDOMINAL PAIN Time Seen by Provider: 08/03/19 05:05 Primary Care Provider: GLEN MCGRATH PA-C [Primary Care Provider] - Follow up as needed Notes: Patient is a 44-year-old female with chief complaint of severe mid upper abdominal pain and repeated vomiting. Symptoms started last night. She states she was discharged from the hospital about 1 week ago for the same. She does have a history of chronic abdominal pain, she states she had a recent endoscopy which was normal, she has had a cholecystectomy, it was thought she had ga stroparesis previously but now this is unsure. No fevers reported, no hematemesis. TRAVEL OUTSIDE OF THE [place] IN LAST 30 DAYS: No - Related Data Allergies/Adverse Reactions: metoclopramide HCl [From [employer]] Allergy (Unknown, Verified 07/21/19 13:29) Past Medical History - Social History Family history: DM, Hypertension - Past Medical History Cardiac Medical History: Reports: Hx Hypercholesterolemia, Hx Hypertension Denies: Hx Atrial Fibrillation, Hx Coronary Artery Disease, Hx DVT, Hx Pulmonary Embolism Pulmonary Medical History: Denies: Hx Asthma, Hx COPD Neurological Medical History: Denies: Hx Seizures Endocrine Medical History: Reports: Hx Diabetes Mellitus Type 2. Denies: Hx Diabetes Mellitus Type 1, Hx Hyperthyroidism, Hx Hypothyroidism Renal/ Medical History: Reports: Hx Renal Insufficiency. Denies: Hx Peritoneal Dialysis GI Medical History: Reports: Hx Gastroesophageal Reflux Disease, Hx Hiatal Hernia. Denies: Hx Cirrhosis, Hx Crohn's Disease, Hx Hepatitis, Hx Ulcerative Colitis Musculoskeltal Medical History: Reports Hx Arthritis, Denies Hx Gout Skin Medical History: Reports Hx Eczema, Denies Hx Psoriasis Psychiatric Medical History: Reports: Hx Anxiety, Hx Bipolar Disorder, Hx Depression Infectious Medical History: Reports: Hx MRSA. Denies: Hx Hepatitis Past Surgical History: Reports: Hx Cholecystectomy - Immunizations Immunizations up to date: Yes Hx Diphtheria, Pertussis, Tetanus Vaccination: Yes - unknown Physical Exam - Vital signs Vitals: Resp BP Pulse Ox 21 H 145/105 H 100 08/03/19 02:02 08/03/19 02:02 08/03/19 02:02 - General General appearance: Other - Anxious, restless, rolling around in the bed - Abdominal Tenderness: Tender - Tender generally, difficult to evaluate based on patient co operation Course - Re-evaluation Re-evalutation: I have greeted and performed a rapid initial assessment of this patient. A comprehensive ED assessment and evaluation of the patient, analysis of test results and completion of the medical decision making process will be conducted by additional ED providers. - Vital Signs Vital signs: Temp Pulse Resp BP Pulse Ox 15 122/75 99 08/03/19 03:01 08/03/19 03:01 08/03/19 04:00 - Laboratory Result Diagrams: 08/03/19 02:40 08/03/19 02:40 Laboratory results interpreted by me: 08/03/19 08/03/19 02:40 02:40 Hgb 11.8 L Hct 35.3 L MCV 77 L MCH 25.7 L RDW 16.6 H Seg Neutrophils % 78.8 H Glucose 294 H Total Protein 8.6 H Doctor's Discharge - Discharge Referrals: GLEN MCGRATH PA-C [Primary Care Provider] - Follow up as needed
[2019-08-03 06:13] LABS: APPEARANCE,URINE CLOUDY; BILIRUBIN,URINE NEGATIVE (NEGATIVE); COLOR,URINE AMBER; GLUCOSE, URINE >=500 mg/dL (NEGATIVE); KETONES,URINE 20 mg/dL (NEGATIVE); LEUKOCYTE ESTERASE,URINE SMALL (NEGATIVE); NITRITE,URINE NEGATIVE (NEGATIVE); PROTEIN,URINE 100 mg/dL (NEGATIVE); URINE SPECIFIC GRAVITY 1.025; UROBILINOGEN,URINE NEGATIVE mg/dL (<2.0)
--- NOTE | 2019-08-03 06:22 | EKG REPORT ---
SEVERITY:- ABNORMAL ECG - SINUS TACHYCARDIA PROBABLE LEFT ATRIAL ABNORMALITY NONSPECIFIC T ABNORMALITIES, INFERIOR LEADS : Confirmed by: Eduardo Novak MD 03-Aug-2019 06:22:01
[2019-08-03 07:16] LABS: URINE AMPHETAMINES SCREEN NEGATIVE; URINE BARBITURATES SCREEN NEGATIVE; URINE BENZODIAZEPINES SCREEN NEGATIVE; URINE COCAINE SCREEN NEGATIVE; URINE MARIJUANA (THC) SCREEN NEGATIVE; URINE METHADONE SCREEN NEGATIVE; URINE PHENCYCLIDINE SCREEN NEGATIVE
[2019-08-03] MEDS ORDERED: NITROFURANTOIN MONOHYD/M-CRYST 100 MG CAPSULE PO ONE (08:02)
--- NOTE | 2019-08-03 08:03 | ER Document Report ---
Entered by JESIKA RANGEL SCRIBE 08/03/19 0624 Acting as scribe for:DALILA MUJICA MD ED General - General Chief Complaint: Abdominal Pain Stated Complaint: ABDOMINAL PAIN Time Seen by Provider: 08/03/19 05:05 Primary Care Provider: GLEN MCGRATH PA-C [Primary Care Provider] - Follow up as needed Information source: Patient Notes: 44-year-old female presents to the emergency department complaining of diffuse abdominal pain today. Patient states the pain is severe. Patient complains of nausea and vomiting. TRAVEL OUTSIDE OF THE [place] IN LAST 30 DAYS: No - Related Data Allergies/Adverse Reactions: metoclopramide HCl [From Reglan] Allergy (Unknown, Verified 07/21/19 13:29) Past Medical History - General Information source: Patient - Social History Smoking Status: Never Smoker Cigarette use (# per day): No Chew tobacco use (# tins/day): No Family History: DM, Hypertension Patient has suicidal ideation: No Patient has homicidal ideation: No - Past Medical History Cardiac Medical History: Reports: Hx Hypercholesterolemia, Hx Hypertension Pulmonary Medical History: Neurological Medical History: Endocrine Medical History: Reports: Hx Diabetes Mellitus Type 2 Renal/ Medical History: Reports: Hx Renal Insufficiency GI Medical History: Reports: Hx Gastroesophageal Reflux Disease, Hx Hiatal Hernia Musculoskeletal Medical History: Reports Hx Arthritis Skin Medical History: Reports Hx Eczema Psychiatric Medical History: Reports: Hx Anxiety, Hx Bipolar Disorder, Hx Depression Infectious Medical History: Reports: Hx MRSA Past Surgical History: Reports: Hx Cholecystectomy - Immunizations Immunizations up to date: Yes Hx Diphtheria, Pertussis, Tetanus Vaccination: Yes - unknown Hx Pneumococcal Vaccination: 05/04/10 Review of Systems - Review of Systems Constitutional: No symptoms reported EENT: No symptoms reported Cardiovascular: No symptoms reported Respiratory: No symptoms reported Gastrointestinal: See HPI, Abdominal pain, Nausea, Vomiting Genitourinary: No symptoms reported Female Genitourinary: No symptoms reported Musculoskeletal: No symptoms reported Skin: No symptoms reported Hematologic/Lymphatic: No symptoms reported Neurological/Psychological: denies: Homicidal ideation -: Yes All other systems reviewed and negative Physical Exam - Vital signs Vitals: Temp 98.4 F 08/03/19 02:00 - Notes Notes: Physical Exam: General: Writing in pain on initial exam, sleeping on final exam. HEENT: Normocephalic. Atraumatic. PERRL. Extraocular movements intact. Oropharynx clear. Neck: Supple. Non-tender. Respiratory: No respiratory distress. Clear and equal breath sounds bilaterally. Cardiovascular: Regular rate and rhythm. Abdominal: Normal Inspection. Non-tender. No distension. Normal Bowel Sounds. Back: No gross abnormalities. Extremities: Moves all four extremities. Upper extremities: Normal inspection. Normal ROM. Lower extremities: Normal inspection. No edema. Normal ROM. Neurological: Normal cognition. AAOx4. Normal speech. Psychological: Normal affect. Normal Mood. Skin: Warm. Dry. Normal color. Course - Re-evaluation Re-evalutation: 08/03/19 07:54 Patient resting comfortably not showing any signs of abdominal pain nausea v omiting or distress at this time. Patient states she is ready to go home. Repeat laboratories show an Accu-Chek of 243 which is declining from her initial 294. Patient's vital signs are stable sinus tachycardia at 100 at this time which is decreased from at higher number on on arrival. Patient states she has all of her medications to take and does not need any new prescriptions at this time. - Vital Signs Vital signs: Temp Pulse Resp BP Pulse Ox 98.4 F 17 115/80 95 08/03/19 02:00 08/03/19 07:01 08/03/19 07:01 08/03/19 07:01 - Laboratory Result Diagrams: 08/03/19 02:40 08/03/19 02:40 Laboratory results interpreted by me: 08/03/19 08/03/19 08/03/19 02:40 02:40 05:40 Hgb 11.8 L Hct 35.3 L MCV 77 L MCH 25.7 L RDW 16.6 H Seg Neutrophils % 78.8 H Glucose 294 H Total Protein 8.6 H Urine Protein 100 H Urine Glucose (UA) >=500 H Urine Ketones 20 H Ur Leukocyte Esterase SMALL H 08/03/19 07:55 Patient has a diagnosis of diabetes mellitus and blood sugar has declined from 294 down to 243 at this time. Discharge - Discharge Clinical Impression: Intractable cyclical vomiting, Chronic abdominal pain, Urinary tract infection Condition: Stable Disposition: HOME, SELF-CARE Instructions: Abdominal Pain ([facility]) Additional Instructions: Hyperglycemia (High Blood Sugar) You have an abnormally high blood sugar. Not all high blood sugar requires long-term treatment. High blood sugar can be due to medications, , or the stress of illness. (These cases are "borderline diabetes.") If the doctor feels your high blood sugar might resolve with time, you may not require treatment now. You will be scheduled for further evaluation. It's very important that you follow through, to see if the blood sugar returns to normal levels. Uncontrolled high blood sugar leads to early heart disease, strokes, nerve damage, eye damage, and kidney damage. Call the physician if there is faintness, excess sleepiness, or very rapid breathing.Abdominal Pain There are many causes of abdominal pain. Pain can mean a serious problem requiring surgery (such as appendicitis). It can also be an innocent problem that goes away on its own (such as a viral infection). Often, time must pass to determine the cause of pain. The physician does not feel that hospitalization is necessary, at present. Things may change within the next 24 hours. Call the doctor or come back for re- examination if any problems occur, such as: (1) Pain that becomes more severe, steady, or becomes concentrated in one specific area. Also, pain that is more severe with movement or coughing. (2) Vomiting that persists or becomes more frequent. (3) Blood in the vomitus, urine, or bowel movements. Blood in the stool may have a tarry or black appearance. (4) Shaking chills or fever greater than 100 degrees F. (5) The abdomen becomes more distended or swollen. (6) Bowel movements cease. (7) Failure to improve as expected. Nausea or Vomiting, Nonspecific Vomiting (or nausea without vomiting) can be caused by many different problems. Of course, it can mean that something's wrong with the stomach, such as "stomach flu," ulcers, or inflammation. But it can also be a symptom of a problem that has nothing to do with the stomach or intestines. Vomiting is common with severe headaches, earaches, and tonsillitis. We see it with pneumonia or heart attacks. Drugs can cause nausea. Many abdominal problems cause vomiting; for example, gallstones, kidney stones, pancreatitis, and intestinal obstruction (blocked bowels). In most cases, curing the vomiting depends on fixing the problem that caused it. For temporary relief, we may use an anti-nausea medicine. For home use, we can prescribe suppositories, chewable pills, pills that dissolve in the mouth, or liquid anti-nausea drugs. If the vomiting seems to be caused by a problem in the stomach, acid-suppressing drugs may be prescribed as well. It's important to avoid dehydration. Sip clear liquids. Take increasing amounts of fluid over the first 24 hours. Then start small amounts of bland foods (such as dry toast, applesauce, mashed potato). Avoid aspirin, tobacco, and alcohol. Gradually resume your usual diet. If the vomiting worsens, if the problem that's making you vomit worsens, or if there's evidence of bleeding in the stomach (such as black, tarry stool, bloody or black vomit, or lightheadedness), you should return immediately. Call your doctor if you aren't improved in 24 to 36 hours. Prescriptions: Nitrofurantoin Monohyd/M-Cryst [Macrobid 100 mg Capsule] 100 mg PO BID #20 cap Forms: Smoking Cessation Education Referrals: GLEN MCGRATH PA-C [Primary Care Provider] - Follow up as needed I personally performed the services described in the documentation, reviewed and edited the documentation which was dictated to the scribe in my presence, and it accurately records my words and actions.
[2019-08-03 08:16] VITALS: BP 133/75
== END 2019-08-03 08:28 | disposition home or self-care (01) ==
LOC: ER 01:51
DX: R11.15 Cyclical vomiting syndrome unrelated to migraine (principal); N39.0 Urinary tract infection, site not specified; G89.29 Other chronic pain; R10.10 Upper abdominal pain, unspecified; E78.00 Pure hypercholesterolemia, unspecified; I10 Essential (primary) hypertension; E11.9 Type 2 diabetes mellitus without complications; Z86.14 Personal history of Methicillin resistant Staphylococcus aureus infection
CPT/HCPCS: 93005; 99284; 96372; 96361; 96374; 96375; 36415; 82962; 83690; 85025; 81025; 80053; 81001; 80307; 93010; J1200; J1630; C9113; J7030

== ENCOUNTER 2019-10-15 00:36 | Emergency (ER) | payer MEDICARE, MEDICAID ==
[2019-10-15] MEDS ORDERED: NORMAL SALINE 1000 ML 1,000 ML IV ONE ×2 (01:15→04:54)
--- NOTE | 2019-10-15 01:15 | ER Document Report ---
ED General - General Chief Complaint: Abdominal Pain Stated Complaint: ABDOMINAL PAIN/VOMITING Time Seen by Provider: 10/15/19 01:13 Primary Care Provider: GLEN MCGRATH PA-C [Primary Care Provider] - Follow up as needed Mode of Arrival: Ambulatory Information source: Patient Notes: triage notes Pt arrived with reports of worsening generalized abdominal pain since this morning. Report sN/V x1, denies diarrhea. Pt reports hx of DM II , states she last checked her BGL yesterday and gave 44Unis of Lantus and 12Units Novolog. Pt arrived to ED drinking a 20oz Red Gatorade. Pt rolling around the bed c/o constant pain that "hurts." Vitals unstable at this time, pt restless, irritable, and tearful my notes 44-year-old black female arrives with chief complaint of having high blood sugar and diffuse abdominal pain since the a.m. hours. She reports she is vomited at least 10 times today and has chronic abdominal pain and last was here around 2 months ago by patient's history. Patient denies any constipation diarrhea trauma physical abuse or mental abuse. She last took her medications around 24 hours ago. Patient denies any cephalgia nuchal rigidity chest pain shortness of breath but she arrives with a 50 breaths/min tachypnea and tachycardia around 120 bpm. She appears to be in severe anxiety almost histrionic sensorium.. TRAVEL OUTSIDE OF THE [place] IN LAST 30 DAYS: No - HPI Onset: This morning Onset/Duration: Sudden, Persistent, Worse Quality of pain: Achy Severity: Mild Pain Level: 1 Associated symptoms: None Exacerbated by: Denies Relieved by: Denies Similar symptoms previously: No Recently seen / treated by doctor: No - Related Data Allergies/Adverse Reactions: metoclopramide HCl [From Reglan] Allergy (Unknown, Verified 07/21/19 13:29) Home Medications: Lantus Past Medical History - General Information source: Patient - Social History Smoking Status: Never Smoker Cigarette use (# per day): No Chew tobacco use (# tins/day): No Smoking Education Provided: No Frequency of alcohol use: None Drug Abuse: None Lives with: Family Family History: Reviewed & Not Pertinent, DM, Hypertension Patient has suicidal ideation: No Patient has homicidal ideation: No - Past Medical History Cardiac Medical History: Reports: Hx Hypercholesterolemia, Hx Hypertension Denies: Hx Atrial Fibrillation, Hx Coronary Artery Disease, Hx DVT, Hx Pulmonary Embolism Pulmonary Medical History: Denies: Hx Asthma, Hx COPD Neurological Medical History: Denies: Hx Seizures Endocrine Medical History: Reports: Hx Diabetes Mellitus Type 2. Denies: Hx Diabetes Mellitus Type 1, Hx Hyperthyroidism, Hx Hypothyroidism Renal/ Medical History: Reports: Hx Renal Insufficiency. Denies: Hx Peritoneal Dialysis GI Medical History: Reports: Hx Gastroesophageal Reflux Disease, Hx Hiatal Hernia. Denies: Hx Cirrhosis, Hx Crohn's Disease, Hx Hepatitis, Hx Ulcerative Colitis Musculoskeletal Medical History: Reports Hx Arthritis, Denies Hx Gout Skin Medical History: Reports Hx Eczema, Denies Hx Psoriasis Psychiatric Medical History: Reports: Hx Anxiety, Hx Bipolar Disorder, Hx Depression Infectious Medical History: Reports: Hx MRSA. Denies: Hx Hepatitis Past Surgical History: Reports: Hx Cholecystectomy - Immunizations Immunizations up to date: Yes Hx Diphtheria, Pertussis, Tetanus Vaccination: Yes - unknown Hx Pneumococcal Vaccination: 05/04/10 Review of Systems - Review of Systems Constitutional: See HPI, Malaise, Weakness EENT: See HPI, Other - dry mouth and tongue Cardiovascular: See HPI, Lightheaded Respiratory: See HPI Gastrointestinal: See HPI, Abdominal pain, Nausea, Vomiting. denies: Diarrhea, Constipation Genitourinary: No symptoms reported Female Genitourinary: No symptoms reported Musculoskeletal: No symptoms reported Skin: No symptoms reported Hematologic/Lymphatic: No symptoms reported Neurological/Psychological: No symptoms reported Physical Exam - Vital signs Vitals: Temp 98.6 F 10/15/19 00:36 Interpretation: Hypertensive, Tachypneic - General General appearance: Anxious, Other - Very histrionic rolling in the bed from side to side crying out " help me help me someone has to help me" and "what kind of pain medicine are you giving me" - HEENT Head: Normocephalic, Atraumatic Eyes: Normal Pupils: PERRL Mouth/Lips: Normal Mucous membranes: Dry Pharynx: Normal Neck: Normal - Respiratory Respiratory status: Tachypnea Chest status: Nontender - Cardiovascular Rhythm: Tachycardia Heart sounds: Normal auscultation Murmur: No - Abdominal Inspection: Obese Distension: No distension Bowel sounds: Hyperactive Tenderness: Tender - diffusely - Rectal Tenderness: No - Genitourinary External exam: Normal - per with RN - Back Back: Normal - Extremities General upper extremity: Normal inspection, Nontender, Normal color, Normal ROM, Normal temperature General lower extremity: Normal inspection, Nontender, Normal color, Normal ROM, Normal temperature, Normal weight bearing. No: Ander's sign - Neurological Neuro grossly intact: Yes Cognition: Normal Orientation: AAOx4 Stitzer Coma Scale Eye Opening: Spontaneous Stitzer Coma Scale Verbal: Oriented Zaina Coma Scale Motor: Obeys Commands Stitzer Coma Scale Total: 15 Speech: Normal Motor strength normal: LUE, RUE, LLE, RLE Sensory: Normal - Psychological Associated symptoms: Anxious - Skin Skin Temperature: Warm Skin Moisture: Dry Skin Color: Normal Course - Vital Signs Vital signs: Temp Pulse Resp BP Pulse Ox 98.6 F 19 131/78 H 97 10/15/19 00:36 10/15/19 02:01 10/15/19 02:01 10/15/19 02:01 - Laboratory Result Diagrams: 10/15/19 00:53 10/15/19 02:09 Laboratory results interpreted by me: 10/15/19 10/15/19 10/15/19 00:53 01:12 01:47 WBC 16.2 H MCV 78 L MCH 25.2 L RDW 18.2 H Absolute Neuts (auto) 12.0 H Carbon Dioxide Est GFR (MDRD) Non-Af Glucose POC Glucose 421 H* Alkaline Phosphatase Total Protein Urine Protein 100 H Urine Glucose (UA) >=500 H Urine Ketones 20 H 10/15/19 10/15/19 10/15/19 02:09 03:39 04:43 WBC MCV MCH RDW Absolute Neuts (auto) Carbon Dioxide 18 L Est GFR (MDRD) Non-Af 51 L Glucose 443 H* POC Glucose 345 H 356 H Alkaline Phosphatase 139 H Total Protein 8.7 H Urine Protein Urine Glucose (UA) Urine Ketones - Diagnostic Test Radiology reviewed: Reports reviewed Critical Care Note - Critical Care Note Total time excluding time spent on procedures (mins): 90 Comments: Much improved by 0 530 with sleeping and heart rate down to 105 and blood pressure within normal limits. Discharge - Discharge Clinical Impression: Generalized anxiety disorder, Uncontrolled hypertension, Drug-seeking behavior, Tachycardia, Gastroparesis due to DM, Intractable vomiting with nausea Condition: Good Disposition: HOME, SELF-CARE Instructions: Antinausea Medication ([facility]), Abdominal Pain ([facility]), Vomiting ([facility]) Additional Instructions: Follow-up with personal doctor and return to ER if symptoms persist or worsen and take medications as directed; may use Phenergan suppositories in order to keep your nausea and vomiting down. If you can tolerate oral medicines use the Compazine to keep your nausea vomiting gastroparesis at a minimum. Be sure to take your diabetes medicine. Prescriptions: Prochlorperazine Maleate [Compazine 10 mg Tablet] 10 mg PO TID PRN #10 tablet PRN Reason: Referrals: GLEN MCGRATH PA-C [Primary Care Provider] - Follow up as needed
[2019-10-15] MEDS ORDERED: HALOPERIDOL LACTATE INJ 5 MG/1 ML VIAL IV ONE (01:16)
[2019-10-15] MEDS ORDERED: LORAZEPAM INJ 2 MG/1 ML VIAL IV ONE (01:16)
[2019-10-15] MEDS ORDERED: PROCHLORPERAZINE EDISYLATE INJ 10 MG/2 ML VIAL IV ONE (01:26)
[2019-10-15] MEDS ORDERED: LABETALOL HCL INJ 20 MG/4 ML DISP.SYRIN IV ONE (01:27)
[2019-10-15 01:30] LABS: APPEARANCE,URINE SLIGHTLY-CLOUDY; BILIRUBIN,URINE NEGATIVE (NEGATIVE); COLOR,URINE YELLOW; GLUCOSE, URINE >=500 mg/dL (NEGATIVE); KETONES,URINE 20 mg/dL (NEGATIVE); LEUKOCYTE ESTERASE,URINE NEGATIVE (NEGATIVE); NITRITE,URINE NEGATIVE (NEGATIVE); PROTEIN,URINE 100 mg/dL (NEGATIVE); URINE SPECIFIC GRAVITY 1.031; UROBILINOGEN,URINE NEGATIVE mg/dL (<2.0)
[2019-10-15 01:40] LABS: ABSOLUTE BASOPHILS # (AUTO) 0.1 10^3/uL (0.0-0.2); ABSOLUTE LYMPHOCYTES (AUTO) 2.8 10^3/uL (0.5-4.7); ABSOLUTE MONOCYTES (AUTO) 1.3 10^3/uL (0.1-1.4); BASOPHILS % (AUTO) 0.7 % (0-2); EOSINOPHILS % (AUTO) 0.1 % (0-6); HEMATOCRIT 39.6 % (36.0-47.0); HEMOGLOBIN 12.9 g/dL (12.0-15.5); LYMPHOCYTES % (AUTO) 17.2 % (13-45); MEAN CORPUSCULAR HEMOGLOBIN 25.2 pg (27.0-33.4); MEAN CORPUSCULAR HGB CONC 32.5 g/dL (32.0-36.0); MEAN CORPUSCULAR VOLUME 78 fl (80-97); MONOCYTES % (AUTO) 8.1 % (3-13); RED CELL DISTRIBUTION WIDTH 18.2 % (11.5-14.0); SEGMENTED NEUTROPHILS % (AUTO) 73.9 % (42-78); TOTAL CELLS COUNTED % (AUTO) 100 %; WHITE BLOOD COUNT 16.2 10^3/uL (4.0-10.5)
[2019-10-15 01:57] LABS: PLATELET COUNT 408 10^3/uL (150-450)
[2019-10-15] MEDS ORDERED: INSULIN REG, HUMAN 100 UNIT/ML 3 ML VIAL (PYX) IV ONE (02:21)
[2019-10-15 02:42] LABS: ALBUMIN 4.7 g/dL (3.5-5.0); ALKALINE PHOSPHATASE 139 U/L (38-126); ANION GAP 16 (5-19); ASPARTATE AMINO TRANSFERASE 23 U/L (14-36); BILIRUBIN,TOTAL 0.7 mg/dL (0.2-1.3); BLOOD UREA NITROGEN 15 mg/dL (7-20); CALCIUM 10.2 mg/dL (8.4-10.2); CARBON DIOXIDE 18 mmol/L (22-30); CHLORIDE 104 mmol/L (98-107); POTASSIUM 4.4 mmol/L (3.6-5.0); TOTAL PROTEIN 8.7 g/dL (6.3-8.2)
[2019-10-15 02:54] LABS: GLUCOSE 443 mg/dL (75-110)
[2019-10-15 03:14] LABS: URINE AMPHETAMINES SCREEN NEGATIVE; URINE BARBITURATES SCREEN NEGATIVE; URINE COCAINE SCREEN NEGATIVE; URINE MARIJUANA (THC) SCREEN NEGATIVE; URINE METHADONE SCREEN NEGATIVE; URINE PHENCYCLIDINE SCREEN NEGATIVE
[2019-10-15 03:15] LABS: URINE BENZODIAZEPINES SCREEN NEGATIVE
--- NOTE | 2019-10-15 03:40 | RADIOLOGY REPORT (SQ) ---
Abdomen single view on 10/15/2019 at 3:02 AM CLINICAL INDICATION: Generalized abdominal pain COMPARISON: 07/21/2019 FINDINGS: Calcifications in the abdomen and pelvis are consistent with phleboliths in correlation with prior CT from 06/19/2019. Bowel gas pattern is unremarkable. No increased stool to suggest constipation is noted. No bony abnormality is noted. IMPRESSION: Nonspecific abdomen.
[2019-10-15] MEDS ORDERED: PROMETHAZINE HCL 25 MG SUPP (4 SUPP/ER DISP) PR ONE (05:35)
[2019-10-15 06:42] VITALS: BP 150/82
== END 2019-10-15 07:26 | disposition home or self-care (01) ==
LOC: ER 00:36
DX: E11.43 Type 2 diabetes mellitus with diabetic autonomic (poly)neuropathy (principal); K31.84 Gastroparesis; F41.1 Generalized anxiety disorder; R00.0 Tachycardia, unspecified; R06.82 Tachypnea, not elsewhere classified; R53.1 Weakness; R53.81 Other malaise; R68.2 Dry mouth, unspecified; R42 Dizziness and giddiness; I10 Essential (primary) hypertension; R11.2 Nausea with vomiting, unspecified; Z76.5 Malingerer [conscious simulation]; Z79.4 Long term (current) use of insulin; Z88.8 Allergy status to other drugs, medicaments and biological substances
CPT/HCPCS: 99284; 96361; 96374; 96375; 36415; 82962; 83690; 85025; 80053; 81001; 80307; 74018; J1630; A9270 ×2; J2060; J0780; J7030; J1815; J3490

== ENCOUNTER 2019-12-07 20:16 | Emergency (ER) | payer MEDICARE, MEDICAID ==
[2019-12-07] MEDS ORDERED: NORMAL SALINE 1000 ML 1,000 ML IV ONE (22:01)
[2019-12-07 22:26] LABS: ABSOLUTE BASOPHILS # (AUTO) 0.1 10^3/uL (0.0-0.2); ABSOLUTE LYMPHOCYTES (AUTO) 1.8 10^3/uL (0.5-4.7); ABSOLUTE NEUT (AUTO) 12.6 10^3/uL (1.7-8.2); BASOPHILS % (AUTO) 0.3 % (0-2); HEMATOCRIT 41.9 % (36.0-47.0); HEMOGLOBIN 13.3 g/dL (12.0-15.5); LYMPHOCYTES % (AUTO) 11.9 % (13-45); MEAN CORPUSCULAR HEMOGLOBIN 24.9 pg (27.0-33.4); MEAN CORPUSCULAR HGB CONC 31.8 g/dL (32.0-36.0); MEAN CORPUSCULAR VOLUME 78 fl (80-97); MONOCYTES % (AUTO) 6.3 % (3-13); PLATELET COUNT 462 10^3/uL (150-450); RED BLOOD COUNT 5.36 10^6/uL (3.72-5.28); RED CELL DISTRIBUTION WIDTH 16.8 % (11.5-14.0); SEGMENTED NEUTROPHILS % (AUTO) 81.5 % (42-78); TOTAL CELLS COUNTED % (AUTO) 100 %; WHITE BLOOD COUNT 15.4 10^3/uL (4.0-10.5)
[2019-12-07] MEDS ORDERED: DICYCLOMINE HCL INJ 20 MG/2 ML AMPULE IM ONE (22:30)
[2019-12-07] MEDS ORDERED: HALOPERIDOL LACTATE INJ 5 MG/1 ML VIAL IV ONE (22:30)
--- NOTE | 2019-12-07 22:30 | ER Document Report ---
ED GI/ - General Chief Complaint: Abdominal Pain Stated Complaint: ABDOMINAL PAIN/VOMITING Time Seen by Provider: 12/07/19 21:53 Primary Care Provider: GLEN MCGRATH PA-C [Primary Care Provider] - Follow up in 1 week Notes: Patient is a 43-year-old female with a history of diabetes, well-known to this emergency department who presents the emergency department with abdominal pain. Patient states that she has had abdominal pain since last night. She also states that she has been vomiting all day. Patient states that last time she checked her blood sugars was yesterday. Patient denies any vaginal discharge or dysuria. TRAVEL OUTSIDE OF THE [place] IN LAST 30 DAYS: No - Related Data Allergies/Adverse Reactions: metoclopramide HCl [From Hydrobee] Allergy (Unknown, Verified 07/21/19 13:29) Past Medical History - Social History Smoking Status: Never Smoker Chew tobacco use (# tins/day): No Drug Abuse: None Family History: Reviewed & Not Pertinent, DM, Hypertension - Past Medical History Cardiac Medical History: Reports: Hx Hypercholesterolemia, Hx Hypertension Denies: Hx Atrial Fibrillation, Hx Coronary Artery Disease, Hx DVT, Hx Pulmonary Embolism Pulmonary Medical History: Denies: Hx Asthma, Hx COPD Neurological Medical History: Denies: Hx Seizures Endocrine Medical History: Reports: Hx Diabetes Mellitus Type 2. Denies: Hx Diabetes Mellitus Type 1, Hx Hyperthyroidism, Hx Hypothyroidism Renal/ Medical History: Reports: Hx Renal Insufficiency. Denies: Hx Peritoneal Dialysis GI Medical History: Reports: Hx Gastroesophageal Reflux Disease, Hx Hiatal Hernia. Denies: Hx Cirrhosis, Hx Crohn's Disease, Hx Hepatitis, Hx Ulcerative Colitis Musculoskeletal Medical History: Reports Hx Arthritis, Denies Hx Gout Skin Medical History: Reports Hx Eczema, Denies Hx Psoriasis Psychiatric Medical History: Reports: Hx Anxiety, Hx Bipolar Disorder, Hx Depression Infectious Medical History: Reports: Hx MRSA. Denies: Hx Hepatitis Past Surgical History: Reports: Hx Cholecystectomy - Immunizations Immunizations up to date: Yes Hx Diphtheria, Pertussis, Tetanus Vaccination: Yes - unknown Hx Pneumococcal Vaccination: 05/04/10 Review of Systems - Review of Systems Notes: REVIEW OF SYSTEMS: CONSTITUTIONAL : Denies recent illness. Denies recent unintentional weight loss. Denies fever, chills, or sweats. EENT: Denies eye, ear, throat, or mouth pain, discharge, or symptoms. Denies nasal or sinus congestion. CARDIOVASCULAR: Denies chest pain. RESPIRATORY: Denies shortness of breath, cough, congestion, difficulty breathing, or wheezing. GASTROINTESTINAL: See HPI. GENITOURINARY: Denies difficulty urinating, burning, blood in urine, urgency or frequency. MUSCULOSKELETAL: Denies neck and back pain. Denies joint pain or swelling. SKIN: Denies rash, itchiness, or lesions HEMATOLOGIC : Denies easy bruising or bleeding. LYMPHATIC: Denies swollen, painful, enlarged glands. NEUROLOGICAL: Denies no numbness or tingling denies weakness. Denies headache. Denies altered mental status. Denies alteration in speech. PSYCHIATRIC: Denies stress, anxiety, alteration in sleep patterns, or depression. All other systems reviewed and negative. Physical Exam - Vital signs Vitals: Temp Pulse Resp BP Pulse Ox 98.7 F 98 18 134/87 H 100 12/07/19 20:26 12/07/19 20:26 12/07/19 20:26 12/07/19 20:26 12/07/19 20:26 - Notes Notes: PHYSICAL EXAMINATION: GENERAL: Appears well, healthy, well-nourished, no acute distress. HEAD: Normocephalic, atraumatic. EYES: PERRL, conjunctiva normal, all extraocular movements intact, sclera nonicteric ENT: Moist mucous membranes. NECK: Supple, no noticeable swelling, redness, rash. Normal range of motion. LUNGS: Equal breath sounds bilaterally and clear to auscultation. No wheezes rales or rhonchi. CARDIOVASCULAR: S1-S2, regular rate, regular rhythm. Radial pulses 2+, normal. ABDOMEN: Normoactive bowel sounds. Soft, nontender, no guarding, no rebound tenderness, and no masses palpated. EXTREMITIES: Normal strength and range of motion, no pitting or edema. No cyanosis. NEUROLOGICAL: Moves all extremities upon command. Strength 5/5 in all extremities. PSYCH: Normal mood, normal affect. SKIN: Warm, dry. No rash, lesions, ulcerations noted. Normal skin turgor. Course - Re-evaluation Re-evalutation: 12/08/19 03:32 Hematology shows a white blood cell count of 15,400 with a left shift. Blood gases unremarkable. Blood sugar is 322. We will give the patient insulin. Will also treat patient for urinary tract infection and a yeast infection. Patient has 66 white blood cells in her urine. No indication for a CT scan at this time. I have a low suspicion for appendicitis, pelvic inflammatory disease, or any life-threatening etiology at this time. Patient adamantly denies any vaginal discharge. Urine will be sent for culture. She is in agreement with this plan. Follow-up precautions were given. Verbal discharge instructions were given to the patient. They verbalized understanding. They are stable for discharge. 12/08/19 04:50 The nurse informed me the patient's blood pressure and heart rate are both elevated. Earlier in the night, the patient's heart rate was normal. Please relatively tachycardic here in the emergency department. Advised patient to take her blood pressure medication. She is in agreement with this plan. - Vital Signs Vital signs: Temp Pulse Resp BP Pulse Ox 98.2 F 114 H 18 160/100 H 99 12/08/19 02:51 12/08/19 04:45 12/08/19 04:45 12/08/19 04:45 12/08/19 04:45 - Laboratory Result Diagrams: 12/07/19 22:17 12/08/19 00:38 Laboratory results interpreted by me: 12/07/19 12/07/19 12/08/19 22:17 23:19 00:38 WBC 15.4 H RBC 5.36 H MCV 78 L MCH 24.9 L MCHC 31.8 L RDW 16.8 H Plt Count 462 H Lymph % (Auto) 11.9 L Absolute Neuts (auto) 12.6 H Seg Neutrophils % 81.5 H Carbon Dioxide 21 L Est GFR (MDRD) Non-Af 51 L Glucose 322 H POC Glucose 316 H Total Protein 8.6 H Urine Protein Urine Glucose (UA) Urine Ketones Urine Blood 12/08/19 01:14 WBC RBC MCV MCH MCHC RDW Plt Count Lymph % (Auto) Absolute Neuts (auto) Seg Neutrophils % Carbon Dioxide Est GFR (MDRD) Non-Af Glucose POC Glucose Total Protein Urine Protein 100 H Urine Glucose (UA) >=500 H Urine Ketones 20 H Urine Blood SMALL H Discharge - Discharge Clinical Impression: Yeast infection Abdominal pain Qualifiers: Abdominal location: unspecified location Qualified Code(s): R10.9 - Unspecified abdominal pain Urinary tract infection Qualifiers: Urinary tract infection type: acute cystitis Hematuria presence: without hematuria Qualified Code(s): N30.00 - Acute cystitis without hematuria Condition: Stable Disposition: HOME, SELF-CARE Instructions: Urinary Tract Infection ([facility]) Additional Instructions: Your urine shows findings consistent with a urinary tract infection. Please take all the antibiotics as directed even if your symptoms have improved. Please follow-up with your primary care physician in 1 week. Return to emergency room if you develop fever >101F, persistent vomiting, become l ethargic, have severe pain in your sides, or any other symptoms that are concerning to you. You also have a yeast infection. It was treated here in the emergency department. Please continue to take your regular medications. Prescriptions: Cephalexin [Keflex] 500 mg PO BID #14 capsule Ondansetron [Zofran Odt 4 mg Tablet] 1 - 2 tab PO Q4H PRN #30 tab.rapdis PRN Reason: For Nausea/Vomiting Referrals: GLEN MCGRATH PA-C [Primary Care Provider] - Follow up in 1 week
[2019-12-08 00:52] LABS: VENOUS BLOOD BASE EXCESS -3.6 mmol/L; VENOUS BLOOD HCO3 22.1 mmol/L (20-32); VENOUS BLOOD PCO2 42.3 mmHg (35-63); VENOUS BLOOD PH 7.34 (7.30-7.42)
[2019-12-08] MEDS ORDERED: ONDANSETRON HCL INJ/PF 4 MG/2 ML SDV IV ONE (00:58)
[2019-12-08 01:13] LABS: ALBUMIN 4.6 g/dL (3.5-5.0); ALKALINE PHOSPHATASE 123 U/L (38-126); ANION GAP 13 (5-19); ASPARTATE AMINO TRANSFERASE 30 U/L (14-36); BILIRUBIN,TOTAL 0.7 mg/dL (0.2-1.3); BLOOD UREA NITROGEN 18 mg/dL (7-20); CALCIUM 9.9 mg/dL (8.4-10.2); CARBON DIOXIDE 21 mmol/L (22-30); CHLORIDE 105 mmol/L (98-107); GLUCOSE 322 mg/dL (75-110); POTASSIUM 4.3 mmol/L (3.6-5.0); TOTAL PROTEIN 8.6 g/dL (6.3-8.2)
[2019-12-08] MEDS ORDERED: FAMOTIDINE INJ/PF 20 MG/2 ML SDV IV ONE (01:23)
[2019-12-08 01:33] LABS: APPEARANCE,URINE CLOUDY; BILIRUBIN,URINE NEGATIVE (NEGATIVE); COLOR,URINE YELLOW; GLUCOSE, URINE >=500 mg/dL (NEGATIVE); KETONES,URINE 20 mg/dL (NEGATIVE); LEUKOCYTE ESTERASE,URINE NEGATIVE (NEGATIVE); NITRITE,URINE NEGATIVE (NEGATIVE); PROTEIN,URINE 100 mg/dL (NEGATIVE); URINE SPECIFIC GRAVITY 1.028; UROBILINOGEN,URINE NEGATIVE mg/dL (<2.0)
[2019-12-08] MEDS ORDERED: PROMETHAZINE HCL INJ 25 MG/1 ML VIAL IV ONE (01:49)
[2019-12-08] MEDS ORDERED: CEFTRIAXONE INJ 1000 MG VIAL IM ONE (03:30)
[2019-12-08] MEDS ORDERED: LIDOCAINE 1% INJ-PF (10 MG/ML) 30 ML SDV INJ ONE (03:31)
[2019-12-08] MEDS ORDERED: PROMETHAZINE HCL 25 MG SUPP (4 SUPP/ER DISP) PR ONE (03:32)
[2019-12-08] MEDS ORDERED: INSULIN REG, HUMAN 100 UNIT/ML 3 ML VIAL (PYX) SUBCUT ONE (03:33)
[2019-12-08] MEDS ORDERED: FLUCONAZOLE 100 MG TABLET PO ONE (03:35)
[2019-12-08 04:55] VITALS: BP 160/100
--- NOTE | 2019-12-08 14:18 | EKG REPORT ---
SEVERITY:- OTHERWISE NORMAL ECG - SINUS TACHYCARDIA : Confirmed by: Russ Block MD 08-Dec-2019 14:17:13
== END 2019-12-08 05:06 | disposition home or self-care (01) ==
LOC: ER 20:16
DX: B37.9 Candidiasis, unspecified (principal); N30.00 Acute cystitis without hematuria; R11.10 Vomiting, unspecified; R10.9 Unspecified abdominal pain; R00.0 Tachycardia, unspecified; E11.9 Type 2 diabetes mellitus without complications; I10 Essential (primary) hypertension; Z88.8 Allergy status to other drugs, medicaments and biological substances
CPT/HCPCS: 93005; 99284; 96372; 96361; 96374; 96375; 36415; 82962; 83690; 85025; 80053; 81001; 82803; 93010; J0500; J1630; A9270 ×3; J3490; J2550; J0696; J2405; J7030; S0028; 87086; J1815

== ENCOUNTER 2019-12-17 17:27 | Inpatient (IN) | payer MEDICARE, MEDICAID ==
[2019-12-17] MEDS ORDERED: LORAZEPAM INJ 2 MG/1 ML VIAL IV ONE (17:45)
[2019-12-17] MEDS ORDERED: NORMAL SALINE 1000 ML 1,000 ML IV ONE (17:45)
--- NOTE | 2019-12-17 17:51 | ER Document Report ---
ED GI/ - General Chief Complaint: Abdominal Pain Stated Complaint: ABDOMINAL PAIN Time Seen by Provider: 12/17/19 17:36 Primary Care Provider: GLEN MCGRATH PA-C [Primary Care Provider] - Follow up as needed Mode of Arrival: Medic Information source: Patient, Emergency Med Personnel Notes: Patient is a 44-year-old female comes emergency room complaining of abdominal pain since last evening. Patient states that it is diffuse across her belly and she cannot find a position of comfort. She denies any flank pain. She denies any vomiting but has had some diarrhea. She was given 100 mics of fentanyl on her way in by EMS. They started fluids but she did not receive any. Patient states she was here in the hospital approximately 2 weeks ago from treated for urinary tract infection was on antibiotics. She does state that the watery diarrhea was somewhat foul-smelling. Physical examination: Patient is a well-nourished well-developed 44-year-old female who appears in moderate discomfort and distress on physical examination. Patient is well-known to the emergency personnel here at the ER. Patient will not remain still in her wheelchair she is writhing about stating she is in severe pain. Cardiac: Patient is tachycardic between 113 and 138. Lungs: Bilateral breath sounds breath sounds increased clear to auscultation. Abdomen: In a sitting position very hard to ascertain patient's degree of discomfort she would not lay or remain still in the chair while I palpated the abdomen. I was able to auscultate bowel sounds in all 4 quadrants. When dis tracted patient had little to no pain in the physical examination however she needs to have a gurney examination in a supine position. I have greeted and performed a rapid initial assessment of this patient. A comprehensive ED assessment and evaluation of the patient, analysis of test results and completion of the medical decision making process will be conducted by additional ED providers. Dictation of this chart was performed using voice recognition software; therefore, there may be some unintended grammatical errors. K stupid question but she has been putting on a lot of the findings today completed on a regular exam TRAVEL OUTSIDE OF THE [place] IN LAST 30 DAYS: No - Related Data Allergies/Adverse Reactions: metoclopramide HCl [From Reglan] Allergy (Unknown, Verified 12/17/19 17:32) Home Medications: dm htn anxiety depression Past Medical History - Social History Smoking Status: Never Smoker Family History: Reviewed & Not Pertinent, DM, Hypertension Patient has homicidal ideation: No - Past Medical History Cardiac Medical History: Reports: Hx Hypercholesterolemia, Hx Hypertension Denies: Hx Atrial Fibrillation, Hx Coronary Artery Disease, Hx DVT, Hx Pulmonary Embolism Pulmonary Medical History: Denies: Hx Asthma, Hx COPD Neurological Medical History: Denies: Hx Seizures Endocrine Medical History: Reports: Hx Diabetes Mellitus Type 2. Denies: Hx Diabetes Mellitus Type 1, Hx Hyperthyroidism, Hx Hypothyroidism Renal/ Medical History: Reports: Hx Renal Insufficiency. Denies: Hx Peritoneal Dialysis GI Medical History: Reports: Hx Gastroesophageal Reflux Disease, Hx Hiatal Hernia. Denies: Hx Cirrhosis, Hx Crohn's Disease, Hx Hepatitis, Hx Ulcerative Colitis Musculoskeletal Medical History: Reports Hx Arthritis, Denies Hx Gout Skin Medical History: Reports Hx Eczema, Denies Hx Psoriasis Psychiatric Medical History: Reports: Hx Anxiety, Hx Bipolar Disorder, Hx Depression Infectious Medical History: Reports: Hx MRSA. Denies: Hx Hepatitis Past Surgical History: Reports: Hx Cholecystectomy - Immunizations Immunizations up to date: Yes Hx Diphtheria, Pertussis, Tetanus Vaccination: Yes - unknown Hx Pneumococcal Vaccination: 05/04/10 Physical Exam - Vital signs Vitals: Temp Pulse 99.1 F 113 H 12/17/19 17:32 12/17/19 17:32 Course - Vital Signs Vital signs: Temp Pulse Resp BP Pulse Ox 99.1 F 134 H 23 H 170/113 H 99 12/17/19 17:34 12/17/19 17:34 12/17/19 17:34 12/17/19 17:34 12/17/19 17:34 Discharge - Discharge Referrals: GLEN MCGRATH PA-C [Primary Care Provider] - Follow up as needed
--- NOTE | 2019-12-17 17:54 | ER Document Report ---
ED Medical Screen (RME) - General Chief Complaint: Abdominal Pain Stated Complaint: ABDOMINAL PAIN Time Seen by Provider: 12/17/19 17:36 Primary Care Provider: GLEN MCGRATH PA-C [Primary Care Provider] - Follow up as needed Mode of Arrival: Medic Notes: Patient is a 44-year-old female comes emergency room complaining of abdominal pain since last evening. Patient states that it is diffuse across her belly and she cannot find a position of comfort. She denies any flank pain. She denies any vomiting but has had some diarrhea. She was given [address] mics of fent[address] on her way in by EMS. They started fluids but she did not receive any. Patient states she was here in the hospital approximately 2 weeks ago from treated for urinary tract infection was on antibiotics. She does state that the watery diarrhea was somewhat foul-smelling. Physical examination: Patient is a well-nourished well-developed 44-year-old female who appears in moderate discomfort and distress on physical examination. Patient is well-known to the emergency personnel here at the ER. Patient will not remain still in her wheelchair she is writhing about stating she is in severe pain. Cardiac: Patient is tachycardic between 113 and 138. Lungs: Bilateral breath sounds breath sounds increased clear to auscultation. Abdomen: In a sitting position very hard to ascertain patient's degree of discomfort she would not lay or remain still in the chair while I palpated the abdomen. I was able to auscultate bowel sounds in all 4 quadrants. When distracted patient had little to no pain in the physical examination however she needs to have a gurney examination in a supine position. I have greeted and performed a rapid initial assessment of this patient. A comprehensive ED assessment and evaluation of the patient, analysis of test results and completion of the medical decision making process will be conducted by additional ED providers. Dictation of this chart was performed using voice recognition software; therefore, there may be some unintended grammatical errors. K stupid question but she has been putting on a lot of the findings today completed on a regular exam TRAVEL OUTSIDE OF THE [place] IN LAST 30 DAYS: No - Related Data Allergies/Adverse Reactions: metoclopramide HCl [From Reglan] Allergy (Unknown, Verified 12/17/19 17:32) Home Medications: dm htn anxiety depression Past Medical History - Social History Family history: DM, Hypertension - Past Medical History Cardiac Medical History: Reports: Hx Hypercholesterolemia, Hx Hypertension Denies: Hx Atrial Fibrillation, Hx Coronary Artery Disease, Hx DVT, Hx Pulmonary Embolism Pulmonary Medical History: Denies: Hx Asthma, Hx COPD Neurological Medical History: Denies: Hx Seizures Endocrine Medical History: Reports: Hx Diabetes Mellitus Type 2. Denies: Hx Diabetes Mellitus Type 1, Hx Hyperthyroidism, Hx Hypothyroidism Renal/ Medical History: Reports: Hx Renal Insufficiency. Denies: Hx Peritoneal Dialysis GI Medical History: Reports: Hx Gastroesophageal Reflux Disease, Hx Hiatal Hernia. Denies: Hx Cirrhosis, Hx Crohn's Disease, Hx Hepatitis, Hx Ulcerative Colitis Musculoskeltal Medical History: Reports Hx Arthritis, Denies Hx Gout Skin Medical History: Reports Hx Eczema, Denies Hx Psoriasis Psychiatric Medical History: Reports: Hx Anxiety, Hx Bipolar Disorder, Hx Depression Infectious Medical History: Reports: Hx MRSA. Denies: Hx Hepatitis Past Surgical History: Reports: Hx Cholecystectomy - Immunizations Immunizations up to date: Yes Hx Diphtheria, Pertussis, Tetanus Vaccination: Yes - unknown Physical Exam - Vital signs Vitals: Temp Pulse 99.1 F 113 H 12/17/19 17:32 12/17/19 17:32 Course - Vital Signs Vital signs: Temp Pulse Resp BP Pulse Ox 99.1 F 134 H 23 H 170/113 H 99 12/17/19 17:34 12/17/19 17:34 12/17/19 17:34 12/17/19 17:34 12/17/19 17:34 Doctor's Discharge - Discharge Referrals: GLEN MCGRATH PA-C [Primary Care Provider] - Follow up as needed
[2019-12-17] MEDS ORDERED: KETOROLAC TROMETHAMINE INJ/PF 30 MG/1 ML SDV IV ONE (18:05)
[2019-12-17 18:55] LABS: URINE AMPHETAMINES SCREEN NEGATIVE; URINE BARBITURATES SCREEN NEGATIVE; URINE BENZODIAZEPINES SCREEN NEGATIVE; URINE COCAINE SCREEN NEGATIVE; URINE MARIJUANA (THC) SCREEN NEGATIVE; URINE METHADONE SCREEN NEGATIVE; URINE PHENCYCLIDINE SCREEN NEGATIVE
[2019-12-17 19:13] LABS: APPEARANCE,URINE SLIGHTLY-CLOUDY; BILIRUBIN,URINE NEGATIVE (NEGATIVE); COLOR,URINE YELLOW; GLUCOSE, URINE >=500 mg/dL (NEGATIVE); KETONES,URINE 20 mg/dL (NEGATIVE); PROTEIN,URINE 30 mg/dL (NEGATIVE); URINE SPECIFIC GRAVITY 1.031; UROBILINOGEN,URINE NEGATIVE mg/dL (<2.0)
[2019-12-17 23:14] LABS: VENOUS BLOOD BASE EXCESS -4.9 mmol/L; VENOUS BLOOD HCO3 19.1 mmol/L (20-32); VENOUS BLOOD PCO2 32.4 mmHg (35-63); VENOUS BLOOD PH 7.39 (7.30-7.42)
[2019-12-17 23:16] LABS: ABSOLUTE LYMPHOCYTES (AUTO) 1.5 10^3/uL (0.5-4.7); ABSOLUTE NEUT (AUTO) 14.8 10^3/uL (1.7-8.2); BASOPHILS % (AUTO) 0.2 % (0-2); HEMATOCRIT 40.2 % (36.0-47.0); HEMOGLOBIN 13.2 g/dL (12.0-15.5); LYMPHOCYTES % (AUTO) 8.6 % (13-45); MEAN CORPUSCULAR HEMOGLOBIN 25.4 pg (27.0-33.4); MEAN CORPUSCULAR HGB CONC 32.8 g/dL (32.0-36.0); MEAN CORPUSCULAR VOLUME 78 fl (80-97); MONOCYTES % (AUTO) 5.7 % (3-13); PLATELET COUNT 330 10^3/uL (150-450); RED BLOOD COUNT 5.18 10^6/uL (3.72-5.28); RED CELL DISTRIBUTION WIDTH 17.4 % (11.5-14.0); SEGMENTED NEUTROPHILS % (AUTO) 85.5 % (42-78); TOTAL CELLS COUNTED % (AUTO) 100 %; WHITE BLOOD COUNT 17.3 10^3/uL (4.0-10.5)
[2019-12-17 23:31] LABS: ALBUMIN 5.4 g/dL (3.5-5.0); ALKALINE PHOSPHATASE 115 U/L (38-126); ASPARTATE AMINO TRANSFERASE 39 U/L (14-36); BILIRUBIN,DIRECT 0.1 mg/dL (0.0-0.4); BILIRUBIN,TOTAL 0.8 mg/dL (0.2-1.3); BLOOD UREA NITROGEN 23 mg/dL (7-20); CALCIUM 10.5 mg/dL (8.4-10.2); GLUCOSE 341 mg/dL (75-110); POTASSIUM 4.8 mmol/L (3.6-5.0); TOTAL PROTEIN 9.4 g/dL (6.3-8.2)
[2019-12-17 23:36] LABS: CARBON DIOXIDE 15 mmol/L (22-30); CHLORIDE 97 mmol/L (98-107)
[2019-12-17 23:44] LABS: ANION GAP 23 (5-19)
--- NOTE | 2019-12-18 00:28 | RADIOLOGY REPORT (SQ) ---
CT ABDOMEN AND PELVIS WITH INTRAVENOUS CONTRAST: 12/17/2019 11:25 PM CDT HISTORY: 44-year old with abdominal pain. COMPARISON: CT of abdomen and pelvis from 06/19/2019 TECHNIQUE: Axial contiguous images were obtained from the lung bases to the proximal femurs with intravenous intravenous contrast administered. Sagittal and coronal reconstructions were also obtained and reviewed. This exam was performed according to our departmental dose-optimization program, which includes automated exposure control, adjustment of the mA and/or KV according to the patient's size and/or use of iterative reconstruction technique. FINDINGS: No focal consolidative airspace opacities are seen. No discrete pleural effusion is seen. There is a small hiatal hernia present with mild prominence of the distal esophagus. The visualized hepatic parenchyma is diffusely low in attenuation. No focal enhancing lesion is seen. The gallbladder is surgically absent. The spleen and pancreas are normal in contour. The bilateral adrenal glands appear unremarkable. Both kidneys demonstrate no evidence of hydronephrosis. The urinary bladder is moderately distended, and appears grossly unremarkable. The uterus is present. There is evidence of prior tubal ligation noted. The stomach is moderately distended. The small bowel loops appear unremarkable. No pericolonic inflammatory stranding is seen. The appendix appears unremarkable. There is no evidence of pneumoperitoneum or free fluid. The aorta and IVC appear normal in size. No significantly enlarged lymph nodes are seen in the abdomen or pelvis. Review of the bone show no evidence of any suspicious lytic or blastic lesions. IMPRESSION: There is thickening of the distal esophagus again noted which may represent evidence of esophagitis. An underlying mass is not fully excluded. A small hiatal hernia is also present. Hepatic steatosis
[2019-12-18] MEDS ORDERED: NORMAL SALINE 1000 ML 1,000 ML IV ONE (01:11)
[2019-12-18] MEDS ORDERED: LORAZEPAM INJ 2 MG/1 ML VIAL IV ONE (01:23)
[2019-12-18] MEDS ORDERED: SUCRALFATE 1 GM TABLET PO ONE (01:23)
[2019-12-18] MEDS ORDERED: HALOPERIDOL LACTATE INJ 5 MG/1 ML VIAL IV ONE (01:23)
[2019-12-18] MEDS ORDERED: FAMOTIDINE INJ/PF 20 MG/2 ML SDV IV ONE (01:23)
[2019-12-18] MEDS ORDERED: NORMAL SALINE 100 ML with INSULIN REGULAR, HUMAN 100 UNIT IV PRN ×4 (01:25→02:56)
[2019-12-18] MEDS ORDERED: DEXTROSE 50%-WATER 25 GM/50 ML DISP.SYRIN IV PRN ×4 (01:25→02:57)
[2019-12-18] MEDS ORDERED: GLUCAGON,HUMAN RECOMB 1 MG INJ IM PRN ×2 (01:25→02:57)
[2019-12-18] MEDS ORDERED: DEXTROSE 40% GEL 15 GM TUBE PO PRN ×4 (01:25→02:57)
[2019-12-18] MEDS ORDERED: INSULIN REG, HUMAN 100 UNIT/ML 3 ML VIAL (PYX) ONE (01:47)
[2019-12-18] MEDS ORDERED: MAG HYDROX/AL HYDROX/SIMETH SUSP 30 ML UDCUP PO PRN (02:48)
[2019-12-18] MEDS ORDERED: ACETAMINOPHEN 650 MG SUPP.RECT PR PRN (02:48)
[2019-12-18] MEDS ORDERED: MORPHINE SULFATE 10 MG/ML INJ IV PRN ×2 (02:48→09:19)
[2019-12-18] MEDS ORDERED: CHLORPROMAZINE HCL INJ 25 MG/1 ML AMPULE IV PRN ×3 (02:48→13:00)
[2019-12-18] MEDS ORDERED: LORAZEPAM INJ 2 MG/1 ML VIAL IV PRN (02:48)
[2019-12-18] MEDS ORDERED: DEXTROSE 5%-WATER 1000 ML 1,000 ML with SODIUM BICARBONATE 150 MEQ IV PRN ×2 (02:48)
--- NOTE | 2019-12-18 02:51 | ER Document Report ---
ED General - General Chief Complaint: Abdominal Pain Stated Complaint: ABDOMINAL PAIN Time Seen by Provider: 12/17/19 17:36 Primary Care Provider: GLEN MCGRATH PA-C [NO LOCAL MD] - Follow up as needed Mode of Arrival: Medic TRAVEL OUTSIDE OF THE [place] IN LAST 30 DAYS: No - HPI Notes: 44-year-old female history of insulin-dependent diabetes, gastroparesis, GERD, chronic abdominal pain, hypertension, hyperlipidemia presents with approximately 1 day of numerous episodes of nonbloody nonbilious emesis. Patient says that she has upper abdominal discomfort and but that she always has it, unable to elaborate further, patient is poor historian. Patient says that she has been taking her usual insulin. Patient had antibiotics approximately 2 weeks ago for UTI, UTI symptoms have resolved. Reports having approximately 5 episodes of watery foul-smelling diarrhea over the past day. Patient denies any headache, trauma, chest pain, shortness of breath, bloody or black stool, hematemesis - Related Data Allergies/Adverse Reactions: metoclopramide HCl [From Reglan] Allergy (Unknown, Verified 12/17/19 17:32) Home Medications: dm htn anxiety depression Past Medical History - General Information source: Patient, H Records - Social History Smoking Status: Never Smoker Family History: Reviewed & Not Pertinent, DM, Hypertension Patient has homicidal ideation: No - Past Medical History Cardiac Medical History: Reports: Hx Hypercholesterolemia, Hx Hypertension Denies: Hx Atrial Fibrillation, Hx Coronary Artery Disease, Hx DVT, Hx Pulmonary Embolism Pulmonary Medical History: Denies: Hx Asthma, Hx COPD Neurological Medical History: Denies: Hx Seizures Endocrine Medical History: Reports: Hx Diabetes Mellitus Type 2. Denies: Hx Diabetes Mellitus Type 1, Hx Hyperthyroidism, Hx Hypothyroidism Renal/ Medical History: Reports: Hx Renal Insufficiency. Denies: Hx Peritoneal Dialysis GI Medical History: Reports: Hx Gastroesophageal Reflux Disease, Hx Hiatal Hernia. Denies: Hx Cirrhosis, Hx Crohn's Disease, Hx Hepatitis, Hx Ulcerative Colitis Musculoskeletal Medical History: Reports Hx Arthritis, Denies Hx Gout Skin Medical History: Reports Hx Eczema, Denies Hx Psoriasis Psychiatric Medical History: Reports: Hx Anxiety, Hx Bipolar Disorder, Hx Depression Infectious Medical History: Reports: Hx MRSA. Denies: Hx Hepatitis Past Surgical History: Reports: Hx Cholecystectomy - Immunizations Immunizations up to date: Yes Hx Diphtheria, Pertussis, Tetanus Vaccination: Yes - unknown Hx Pneumococcal Vaccination: 05/04/10 Review of Systems - Review of Systems Notes: REVIEW OF SYSTEMS: CONSTITUTIONAL : Denies fever, chills, or sweats. EENT: Denies recent cold/sinus symptoms, denies throat pain CARDIOVASCULAR: Denies chest pain, CROW RESPIRATORY: Denies cough, denies shortness of breath. GASTROINTESTINAL: +abdominal pain, +nausea/vomiting. GENITOURINARY: Denies difficulty urinating, painful urination. FEMALE GENITOURINARY: Denies abnormal vaginal bleeding, vaginal discharge. MUSCULOSKELETAL: Denies neck pain, back pain. SKIN: Denies rash or skin lesions. HEMATOLOGIC : Denies easy bruising or bleeding. LYMPHATIC: Denies swollen, enlarged glands. NEUROLOGICAL: Denies headache, denies change in gait. PSYCHIATRIC: Denies anxiety or stress or depression. Physical Exam - Vital signs Vitals: Temp Pulse 99.1 F 113 H 12/17/19 17:32 12/17/19 17:32 - Notes Notes: PHYSICAL EXAMINATION: GENERAL: Uncomfortable appearing secondary to abdominal pain, in no acute distress HEAD: Atraumatic, normocephalic. EYES: Pupils equal round and appropriate constriction, sclera anicteric, conjunctiva are normal. ENT: nares patent, dry mucous membranes. NECK: Normal range of motion, supple without lymphadenopathy LUNGS: Breath sounds clear to auscultation bilaterally and equal. No wheezes rales or rhonchi. HEART: Tachycardic, regular rhythm, no murmurs rubs or gallops ABDOMEN: Soft, nontender, no guarding, no masses, no CVAT EXTREMITIES: Normal range of motion, no pitting or edema. No cyanosis. NEUROLOGICAL: Awake, alert, conversing appropriately, moves all extremities spontaneously. SKIN: Warm, Dry, normal turgor, no rashes or lesions noted. Course - Re-evaluation Re-evalutation: 12/18/19 02:49 Patient evaluated for abdominal pain although patient says abdominal pain is acutely different than her chronic abdominal pain and had CT abdomen pelvis that showed esophageal thickening unable to rule out mass and hiatal hernia, but no acute explanation of abdominal pain. Patient not vomiting in ED, work-up revealed DKA with decreased CO2 urine ketones and increased anion gap. Started patient on insulin drip and will start D5 drip now as patient's only mildly hyperglycemic. Discussed case with hospitalist who is accepted patient to IMCU. Obtained EKG and troponin given patient history of CAD risk factors in case of atypical presentation without any emergent findings. - Vital Signs Vital signs: Temp Pulse Resp BP Pulse Ox 99.1 F 129 H 20 157/131 H 97 12/17/19 17:34 12/18/19 00:51 12/18/19 02:00 12/18/19 00:51 12/18/19 02:00 - Laboratory Result Diagrams: 12/17/19 23:02 12/17/19 23:02 Laboratory results interpreted by me: 12/17/19 12/17/19 12/17/19 17:45 20:12 23:02 WBC 17.3 H MCV 78 L MCH 25.4 L RDW 17.4 H Lymph % (Auto) 8.6 L Absolute Neuts (auto) 14.8 H Seg Neutrophils % 85.5 H VBG pCO2 VBG HCO3 Sodium Chloride Carbon Dioxide Anion Gap BUN Creatinine Est GFR ( Amer) Est GFR (MDRD) Non-Af Glucose POC Glucose 317 H Calcium AST Total Protein Albumin Urine Protein 30 H Urine Glucose (UA) >=500 H Urine Ketones 20 H Leukocyte Esterase Rfl TRACE H 12/17/19 12/17/19 12/18/19 23:02 23:02 01:54 WBC MCV MCH RDW Lymph % (Auto) Absolute Neuts (auto) Seg Neutrophils % VBG pCO2 32.4 L VBG HCO3 19.1 L Sodium 134.6 L Chloride 97 L Carbon Dioxide 15 L Anion Gap 23 H BUN 23 H Creatinine 1.36 H Est GFR ( Amer) 51 L Est GFR (MDRD) Non-Af 42 L Glucose 341 H POC Glucose 299 H Calcium 10.5 H AST 39 H Total Protein 9.4 H Albumin 5.4 H Urine Protein Urine Glucose (UA) Urine Ketones Leukocyte Esterase Rfl Discharge - Discharge Clinical Impression: DKA (diabetic ketoacidosis) Qualifiers: Diabetes mellitus type: type 2 Diabetes mellitus complication detail: without coma Qualified Code(s): E11.10 - Type 2 diabetes mellitus with ketoacidosis wi thout coma Abdominal pain Qualifiers: Abdominal location: unspecified location Qualified Code(s): R10.9 - Unspecified abdominal pain Disposition: ADMITTED INPATIENT Admitting Provider: Eladio (Hospitalist) Unit Admitted: IMCU Referrals: ALCIDES,GLEN, PA-C [NO LOCAL MD] - Follow up as needed
[2019-12-18] MEDS ORDERED: RINGERS SOLUTION,LACTATED 1,000 ML IV PRN (03:00)
[2019-12-18] MEDS ORDERED: SODIUM BICARBONATE 8.4% INJ 50 MEQ/50 ML DISP.SYRIN ONE (04:31)
[2019-12-18] MEDS: HEPARIN SOD (PORCINE) 5,000 UNIT/ML 1 ML VIAL SUBCUT SCH ×3 (06:02→21:49)
--- NOTE | 2019-12-18 06:51 | PDOC H&P ---
History of Present Illness Admission Date/PCP: 12/18/19 03:00 Jamil Estrada PA-C Patient complains of: Vomiting and diarrhea History of Present Illness: RUTH MURPHY is a 44 year old female presents the emergency room with a 1 day history of vomiting and diarrhea. She admits the sudden onset of episodic vomiting (too numerous to count) and extremely foul-smelling copious watery diarrhea stools (x5) early on the day of 12/17/2019. The vomiting and diarrhea were accompanied by upper abdominal pain, little changed from her chronic upper abdominal pain. Her vomiting and diarrhea are associated with generalized weakness and malaise. She denies other associated or accompanying signs and symptoms. She admits prior similar symptoms on numerous occasions. She endorses receiving oral antibiotic therapy for urinary tract infection within the last month. She has not identified any aggravating or ameliorating factors for her vomiting and diarrhea. In the emergency room she was found to have a blood sugar of 300 with a metabolic acidosis and an anion gap of 23. Urine ketones were positive. Patient was subsequently started on IV fluids and a insulin infusion. She was therefore admitted to the IMCU floor for further evaluation and treatment. Past Medical History Cardiac Medical History: Reports: Hyperlipidema, Hypertension Denies: Atrial Fibrillation, Coronary Artery Disease, DVT, Pulmonary Embolism Pulmonary Medical History: Denies: Asthma, Chronic Obstructive Pulmonary Disease (COPD) EENT Medical History: Denies: Cataracts, Ears - Hearing aids Neurological Medical History: Denies: Hemorrhagic CVA, Ischemic CVA, Seizures Endocrine Medical History: Reports: Diabetes Mellitus Type 2, Obesity Denies: Diabetes Mellitus Type 1, Hyperthyroidism, Hypothyroidism Renal/ Medical History: Denies: Chronic Kidney Disease, Nephrolithiasis Malignancy Medical History: Reports: None GI Medical History: Reports: Gastroesophageal Reflux Disease, Hiatal Hernia Denies: Cirrhosis, Crohn's Disease, Hepatitis, Peptic Ulcer Disease, Ulcerative Colitis Musculoskeltal Medical History: Reports: Arthritis Denies: Gout Skin Medical History: Reports: Eczema Denies: Psoriasis Psychiatric Medical History: Reports: Bipolar Disorder, Depression Denies: Alcohol Dependency, Substance Abuse, Tobacco Dependency Traumatic Medical History: Reports: None Hematology: Reports: Anemia Denies: Bleeding Tendencies Infectious Medical History: Reports: Methicillin-Resistant Staph Aureus Past Surgical History Past Surgical History: Reports: Cholecystectomy Social History Information Source: Patient Lives with: Family Smoking Status: Never Smoker Electronic Cigarette use?: No Frequency of Alcohol Use: None Hx Recreational Drug Use: No Drugs: None Hx Prescription Drug Abuse: No - Advance Directive Resuscitation Status: Full Code Surrogate healthcare decision maker:: Annie Murphy Family History Family History: DM, Hypertension Parental Family History Reviewed: Yes Children Family History Reviewed: No Sibling(s) Family History Reviewed.: Yes Medication/Allergy Home Medications: Clonidine [Catapres-Tts 2 (0.2 mg/24 Hr) Transderm Ptch] 1 patch TD DIALLO@1000 07/22/19 Dicyclomine HCl [Bentyl 10 mg Capsule] 10 mg PO QID 07/22/19 Insulin Aspart [Novolog Flexpen] 3 unit SUBCUT MEALS 07/22/19 Insulin Glargine,Hum.rec.anlog [Lantus Insulin 100 Unit/1 ml 10 ml] 50 unit SUBCUT DAILY 07/22/19 Rosuvastatin Calcium [Crestor] 40 mg PO DAILY 07/22/19 Amlodipine Besylate [Norvasc 10 mg Tablet] 10 mg PO DAILY #30 07/23/19 Empagliflozin [Jardiance] 10 mg PO DAILY 12/18/19 Lisinopril [Prinivil 10 mg Tablet] 10 mg PO DAILY 12/18/19 Allergies/Adverse Reactions: metoclopramide HCl [From Reglan] Allergy (Unknown, Verified 12/17/19 17:32) Review of Systems Constitutional: PRESENT: as per HPI, weakness, other - Malaise. ABSENT: chills, fever(s) Eyes: ABSENT: visual disturbances, other - eye pain Ears: ABSENT: hearing changes, other - Ear pain Nose, Mouth, and Throat: ABSENT: headache(s), sore throat Cardiovascular: ABSENT: chest pain, palpitations Respiratory: ABSENT: cough, dyspnea Gastrointestinal: PRESENT: as per HPI, abdominal pain, diarrhea, nausea, vomiting. ABSENT: coffee ground emesis, constipation, hematemesis, hematochezia, melena Genitourinary: ABSENT: dysuria, hematuria Musculoskeletal: ABSENT: back pain, joint swelling Integumentary: ABSENT: pruritus, rash Neurological: ABSENT: confusion, convulsions, focal weakness, memory loss, syncope Psychiatric: ABSENT: anxiety, depression Endocrine: ABSENT: cold intolerance, heat intolerance Hematologic/Lymphatic: ABSENT: easy bleeding, easy bruising Allergic/Immunologic: ABSENT: seasonal rhinorrhea Physical Exam Vital Signs: Temp Pulse Resp BP Pulse Ox 99.1 F 129 H 20 157/131 H 97 12/17/19 17:34 12/18/19 00:51 12/18/19 02:00 12/18/19 00:51 12/18/19 02:00 Intake & Output 12/16/19 12/17/19 12/18/19 23:59 23:59 23:59 Intake Total 1000 Balance 1000 Weight 72.575 kg General appearance: PRESENT: cooperative, mild distress - Secondary to abdominal discomfort, obese Head exam: PRESENT: atraumatic, normocephalic Eye exam: PRESENT: conjunctiva pink. ABSENT: conjunctival injection, scleral icterus Ear exam: PRESENT: normal external ear exam. ABSENT: bleeding, drainage Mouth exam: PRESENT: dry mucosa, neck supple Neck exam: ABSENT: thyromegaly, tracheal deviation Respiratory exam: PRESENT: clear to auscultation bernardo, symmetrical, unlabored Cardiovascular exam: PRESENT: RRR. ABSENT: clicks, gallop, rubs Pulses: PRESENT: normal radial pulses, normal dorsalis pedis pul GI/Abdominal exam: PRESENT: normal bowel sounds, soft, tenderness - Upper abdomen moderately tender to palpation without localization Rectal exam: PRESENT: deferred Extremities exam: ABSENT: joint swelling, pedal edema Musculoskeletal exam: ABSENT: deformity, dislocation Neurological exam: PRESENT: alert, oriented to person, oriented to place, oriented to time, oriented to situation, CN II-XII grossly intact. ABSENT: motor sensory deficit Psychiatric exam: PRESENT: appropriate affect, normal mood Skin exam: PRESENT: dry, intact, warm. ABSENT: jaundice, rash, urticaria Results Laboratory Results: 12/17/19 23:02 12/17/19 23:02 12/17/19 12/17/19 12/17/19 17:45 23:02 23:02 WBC 17.3 H RBC 5.18 Hgb 13.2 Hct 40.2 MCV 78 L MCH 25.4 L MCHC 32.8 RDW 17.4 H Plt Count 330 Seg Neutrophils % 85.5 H VBG pH VBG pCO2 VBG HCO3 VBG Base Excess Sodium 134.6 L Potassium 4.8 Chloride 97 L Carbon Dioxide 15 L Anion Gap 23 H BUN 23 H Creatinine 1.36 H Est GFR ( Amer) 51 L Glucose 341 H Calcium 10.5 H Total Bilirubin 0.8 AST 39 H Alkaline Phosphatase 115 Total Protein 9.4 H Albumin 5.4 H Lipase 114.6 Urine Color YELLOW Urine Appearance SLIGHTLY-CLOUDY Urine pH 6.0 Ur Specific [place] 1.031 Urine Protein 30 H Urine Glucose (UA) >=500 H Urine Ketones 20 H Urine Blood NEGATIVE 12/17/19 23:02 WBC RBC Hgb Hct MCV MCH MCHC RDW Plt Count Seg Neutrophils % VBG pH 7.39 VBG pCO2 32.4 L VBG HCO3 19.1 L VBG Base Excess -4.9 Sodium Potassium Chloride Carbon Dioxide Anion Gap BUN Creatinine Est GFR ( Amer) Glucose Calcium Total Bilirubin AST Alkaline Phosphatase Total Protein Albumin Lipase Urine Color Urine Appearance Urine pH Ur Specific [place] Urine Protein Urine Glucose (UA) Urine Ketones Urine Blood 12/17/19 23:02 Troponin I < 0.012 Impressions: Abdomen/Pelvis CT 12/17/19 17:44 IMPRESSION: There is thickening of the distal esophagus again noted which may represent evidence of esophagitis. An underlying mass is not fully excluded. A small hiatal hernia is also present. Hepatic steatosis Assessment and Plan - Diagnosis (1) DKA (diabetic ketoacidosis) Qualifiers: Diabetes mellitus type: type 2 Diabetes mellitus complication detail: without coma Qualified Code(s): E11.10 - Type 2 diabetes mellitus with ketoacidosis without coma Is this a current diagnosis for this admission?: Yes (2) Acute kidney injury (nontraumatic) Is this a current diagnosis for this admission?: Yes (3) Vomiting Qualifiers: Vomiting type: unspecified Vomiting Intractability: intractable Nausea presence: with nausea Qualified Code(s): R11.2 - Nausea with vomiting, unspecified Is this a current diagnosis for this admission?: Yes (4) Diarrhea Qualifiers: Diarrhea type: unspecified type Qualified Code(s): R19.7 - Diarrhea, unspecified Is this a current diagnosis for this admission?: Yes (5) Hypertension Qualifiers: Hypertension type: essential hypertension Qualified Code(s): I10 - Essential (primary) hypertension Is this a current diagnosis for this admission?: Yes (6) Hyperlipidemia Qualifiers: Hyperlipidemia type: unspecified Qualified Code(s): E78.5 - Hyperlipidemia, unspecified Is this a current diagnosis for this admission?: Yes (7) Diabetes mellitus type 2 in obese Is this a current diagnosis for this admission?: Yes (8) Gastroparesis due to DM Is this a current diagnosis for this admission?: Yes (9) Chronic abdominal pain Is this a current diagnosis for this admission?: Yes (10) Bipolar disorder Qualifiers: Active/Remission status: remission status unspecified Qualified Code(s): F31.9 - Bipolar disorder, unspecified Is this a current diagnosis for this admission?: Yes (11) Generalized anxiety disorder Is this a current diagnosis for this admission?: Yes - Plan Summary Summary: Patient will be admitted to the [facility] where she will receive routine supportive and symptomatic cares. Insulin infusion was initiated in the emergency room and will be continued until the patient's anion gap is closed. High-volume IV flui ds utilizing lactated Ringer solution will be used at 250 mL/h. Patient will be on a bicarbonate infusion at 500 mL an hour x2 hours. She will use Ativan 1 mg IV every 4 hours as needed for anxiety or restlessness. She will use morphine 2 to 4 mg IV every 2 hours as needed for pain. She will use Thorazine 25 mg IV every 8 hours as needed for nausea or vomiting. A stool culture and C. difficil e screening has been ordered. CBCs, metabolic profiles, magnesium levels and additional laboratory and/or radiographic evaluations will be obtained as needed. Patient will be on a clear liquid diet initially. - Time Time Spent with patient: Less than 15 minutes Medications reviewed and adjusted accordingly: Yes Anticipated Discharge Disposition: Home, Self Care Anticipated Discharge: within 72 hours Anticipated discharge: Home - Inpatient Certification Based on my medical assessment, after consideration of the patient's comorb idities, presenting symptoms, or acuity I expect that the services needed warrant INPATIENT care.: Yes I certify that my determination is in accordance with my understanding of Medicare's requirements for reasonable and necessary INPATIENT services [42 CFR 412.3e].: Yes Medical Necessity: Need For IV Fluids, Need For Continuous Telemetry Monitoring, Risk of Complication if Not Cared For in Hospital
[2019-12-18 07:10] LABS: HEMATOCRIT 34.3 % (36.0-47.0); HEMOGLOBIN 11.2 g/dL (12.0-15.5); MEAN CORPUSCULAR HGB CONC 32.6 g/dL (32.0-36.0); MEAN CORPUSCULAR VOLUME 77 fl (80-97); PLATELET COUNT 282 10^3/uL (150-450); RED BLOOD COUNT 4.47 10^6/uL (3.72-5.28); RED CELL DISTRIBUTION WIDTH 17.5 % (11.5-14.0); WHITE BLOOD COUNT 21.3 10^3/uL (4.0-10.5)
[2019-12-18 07:28] LABS: ANION GAP 9 (5-19); BLOOD UREA NITROGEN 19 mg/dL (7-20); CALCIUM 8.8 mg/dL (8.4-10.2); CHLORIDE 99 mmol/L (98-107); GLUCOSE 221 mg/dL (75-110)
[2019-12-18 07:35] LABS: CARBON DIOXIDE 27 mmol/L (22-30); POTASSIUM 3.5 mmol/L (3.6-5.0)
[2019-12-18] MEDS: PANTOPRAZOLE SODIUM 40 MG VIAL IV SCH ×2 (09:09→21:49)
[2019-12-18] MEDS ORDERED: MORPHINE SULFATE 10 MG/ML INJ ONE ×2 (09:26→18:47)
[2019-12-18] MEDS ORDERED: NORMAL SALINE 1000 ML 1,000 ML IV PRN (09:55)
[2019-12-18] MEDS ORDERED: MORPHINE SULFATE 10 MG/5 ML ORAL SOLUTION UDCUP PO PRN (09:56)
[2019-12-18] MEDS ORDERED: POTASSI CL 20 MEQ/50 ML RIDER 20 MEQ/50 ML RTUPB IV ONE (10:15)
--- NOTE | 2019-12-18 10:18 | PDOC PROGRESS REPORT ---
Subjective Progress Note for:: 12/18/19 Subjective:: I was called to the patient's room. She is becoming hypoglycemic on the insulin drip. She is also tachycardic and hypertensive. She was just given some analgesia and is quite sleepy. Reason For Visit: ACUTE METABOLIC ACIDOSIS,ACUTE GASTROENTERITIS, Physical Exam Vital Signs: Temp Pulse Resp BP Pulse Ox 98.3 F 120 H 20 152/83 H 98 12/18/19 07:12 12/18/19 07:12 12/18/19 08:04 12/18/19 07:58 12/18/19 08:04 Intake & Output 12/17/19 12/18/19 12/19/19 06:59 06:59 06:59 Intake Total 2008 17 Output Total 300 600 Balance 1709 -583 Weight 73.6 kg General appearance: PRESENT: cooperative, mild distress, well-developed Eye exam: PRESENT: conjunctiva pink. ABSENT: scleral icterus Ear exam: PRESENT: normal external ear exam. ABSENT: bleeding, drainage Mouth exam: PRESENT: dry mucosa, tongue midline Neck exam: ABSENT: carotid bruit, JVD, lymphadenopathy Respiratory exam: PRESENT: clear to auscultation bernardo, unlabored. ABSENT: rales, rhonchi, wheezes Cardiovascular exam: PRESENT: RRR, systolic murmur - 2/6, tachycardia. ABSENT: diastolic murmur, irregular rhythm GI/Abdominal exam: PRESENT: hypoactive bowel sounds, soft, tenderness - Right lower quadrant. ABSENT: distended, guarding Rectal exam: PRESENT: deferred Gentrourinary exam: PRESENT: indwelling catheter Extremities exam: ABSENT: pedal edema Musculoskeletal exam: PRESENT: normal inspection. ABSENT: deformity, dislocation Neurological exam: ABSENT: awake - Very sleepy. Patient was recently medicated. Psychiatric exam: PRESENT: flat affect. ABSENT: agitated, anxious Skin exam: PRESENT: dry, normal color, warm. ABSENT: rash Results Laboratory Results: 12/18/19 07:02 12/18/19 07:02 12/17/19 12/17/19 12/17/19 17:45 23:02 23:02 WBC 17.3 H RBC 5.18 Hgb 13.2 Hct 40.2 MCV 78 L MCH 25.4 L MCHC 32.8 RDW 17.4 H Plt Count 330 Seg Neutrophils % 85.5 H VBG pH VBG pCO2 VBG HCO3 VBG Base Excess Sodium 134.6 L Potassium 4.8 Chloride 97 L Carbon Dioxide 15 L Anion Gap 23 H BUN 23 H Creatinine 1.36 H Est GFR ( Amer) 51 L Glucose 341 H Calcium 10.5 H Magnesium Total Bilirubin 0.8 AST 39 H Alkaline Phosphatase 115 Total Protein 9.4 H Albumin 5.4 H Lipase 114.6 Urine Color YELLOW Urine Appearance SLIGHTLY-CLOUDY Urine pH 6.0 Ur Specific [place] 1.031 Urine Protein 30 H Urine Glucose (UA) >=500 H Urine Ketones 20 H Urine Blood NEGATIVE 12/17/19 12/18/19 12/18/19 23:02 07:02 07:02 WBC 21.3 H RBC 4.47 Hgb 11.2 L Hct 34.3 L MCV 77 L MCH 25.0 L MCHC 32.6 RDW 17.5 H Plt Count 282 Seg Neutrophils % VBG pH 7.39 VBG pCO2 32.4 L VBG HCO3 19.1 L VBG Base Excess -4.9 Sodium 134.5 L Potassium 3.5 L D Chloride 99 Carbon Dioxide 27 D Anion Gap 9 BUN 19 Creatinine 1.05 Est GFR ( Amer) > 60 Glucose 221 H Calcium 8.8 Magnesium 1.9 Total Bilirubin AST Alkaline Phosphatase Total Protein Albumin Lipase Urine Color Urine Appearance Urine pH Ur Specific [place] Urine Protein Urine Glucose (UA) Urine Ketones Urine Blood 12/17/19 23:02 Troponin I < 0.012 Impressions: Abdomen/Pelvis CT 12/17/19 17:44 IMPRESSION: There is thickening of the distal esophagus again noted which may represent evidence of esophagitis. An underlying mass is not fully excluded. A small hiatal hernia is also present. Hepatic steatosis Assessment and Plan - Diagnosis (1) DKA (diabetic ketoacidosis) Qualifiers: Diabetes mellitus type: type 2 Diabetes mellitus complication detail: without coma Qualified Code(s): E11.10 - Type 2 diabetes mellitus with ketoacidosis without coma Is this a current diagnosis for this admission?: Yes Plan: As of this morning the patient's anion gap has closed. She was tending towards hypoglycemia. The insulin infusion was stopped. I have started some Lantus and continue sliding scale. The patient had clear liquid diet at the bedside. I instructed the nurse that if she did well with clear liquids we will advance to a regular texture control carbohydrate diet. (2) Abdominal pain Qualifiers: Abdominal location: generalized Qualified Code(s): R10.84 - Generalized abdominal pain Is this a current diagnosis for this admission?: Yes Plan: PRN analgesia will be available. The patient has taken Bentyl and narcotic analgesics in the past. We will utilize small doses of morphine sulfate at this time. The goal would be to transition to oral medication. (3) Hyperglycemia due to diabetes mellitus Is this a current diagnosis for this admission?: Yes Plan: Glucose improved with the insulin drip. I will start Lantus at a lower dose than she was previously on at home and making adjustments as her appetite improves and based on the sliding scale requirements. (4) Hypertension Qualifiers: Hypertension type: essential hypertension Qualified Code(s): I10 - Essential (primary) hypertension Is this a current diagnosis for this admission?: Yes Plan: I reviewed the patient's current medication list. For blood pressure she ut ilizes amlodipine, lisinopril, metoprolol and clonidine. I will resume these medications but at slightly lower doses than her home regimen. We can adjust medications based on her blood pressure response. Restart blood pressure meds at lower doses (5) Tachycardia Is this a current diagnosis for this admission?: Yes Plan: This could be related to her pain or the abrupt drop in glucose. I am going to restart her metoprolol. We will continue to monitor on telemetry. (6) Hypokalemia Is this a current diagnosis for this admission?: Yes Plan: Potassium is low likely due to the insulin infusion. I will start supplementing potassium. As the patient's diet improves she may not need oral potassium chloride. Continue to monitor electrolytes. (7) HOCM (hypertrophic obstructive cardiomyopathy) Is this a current diagnosis for this admission?: Yes Plan: From a previous echocardiogram the patient does have documented hypertrophic obstructive cardiomyopathy. We will need to not let her systolic blood pressure dropped too low. Continue to monitor vital signs. (8) Leukocytosis Qualifiers: Leukocytosis type: other Qualified Code(s): D72.828 - Other elevated white blood cell count Is this a current diagnosis for this admission?: Yes Plan: The patient's white blood cell count jumped to 21.3 from 17.3. She is afebrile. I believe this is due to the physiologic stress of her DKA. If she should spike a temperature or exhibit increasing white blood cells we will panculture and start antibiotics. - Plan Summary Summary: Patient will be admitted to the [facility] where she will receive routine supportive and symptomatic cares. Insulin infusion was initiated in the emergency room and will be continued until the patient's anion gap is closed. High-volume IV fluids utilizing lactated Ringer solution will be used at 250 mL/h. Patient will be on a bicarbonate infusion at 500 mL an hour x2 hours. She will use Ativan 1 mg IV every 4 hours as needed for anxiety or restlessness. She will use morphine 2 to 4 mg IV every 2 hours as needed for pain. She will use Thorazine 25 mg IV every 8 hours as needed for nausea or vomiting. A stool culture and C. difficile screening has been ordered. CBCs, metabolic profiles, magnesium levels and additional laboratory and/or radiographic evaluations will be obtained as needed. Patient will be on a clear liquid diet initially. - Time Total Critical Time (Minutes): 40 Medications reviewed and adjusted accordingly: Yes Anticipated Discharge Disposition: Home with Home Health Anticipated Discharge: Other Other Anticipated Discharge Timeframe: Likely 4 to 5 days
[2019-12-18] MEDS: AMLODIPINE BESYLATE 5 MG TABLET PO SCH (10:40)
[2019-12-18] MEDS: METOPROLOL TARTRATE 50 MG TABLET PO SCH ×2 (10:40→21:52)
[2019-12-18] MEDS ORDERED: INSULIN GLARGINE,HUM.REC.ANLOG 1,000 UNIT/10 ML VIAL SUBCUT ONE (10:50)
[2019-12-18] MEDS ORDERED: INSULIN GLARGINE,HUM.REC.ANLOG 1,000 UNIT/10 ML VIAL (PYX) SUBCUT ONE (11:30)
[2019-12-18] MEDS: INSULIN LISPRO 100 UNIT/ML 3 ML VIAL SUBCUT SCH ×3 (12:14→21:48)
[2019-12-18] MEDS: MORPHINE SULFATE 10 MG/ML INJ IV PRN (18:58)
[2019-12-18] MEDS: INSULIN GLARGINE,HUM.REC.ANLOG 1,000 UNIT/10 ML VIAL SUBCUT SCH (21:48)
[2019-12-18] MEDS: LISINOPRIL 10 MG TABLET PO SCH (21:56)
[2019-12-18] MEDS ORDERED: METOPROLOL TARTRATE 50 MG TABLET PO SCH (22:00)
[2019-12-19] MEDS: MORPHINE SULFATE 10 MG/ML INJ IV PRN ×3 (03:21→17:01)
[2019-12-19 05:42] LABS: HEMOGLOBIN 11.6 g/dL (12.0-15.5); MEAN CORPUSCULAR HEMOGLOBIN 25.2 pg (27.0-33.4); MEAN CORPUSCULAR HGB CONC 32.3 g/dL (32.0-36.0); MEAN CORPUSCULAR VOLUME 78 fl (80-97); PLATELET COUNT 261 10^3/uL (150-450); RED BLOOD COUNT 4.61 10^6/uL (3.72-5.28); RED CELL DISTRIBUTION WIDTH 17.6 % (11.5-14.0); WHITE BLOOD COUNT 11.2 10^3/uL (4.0-10.5)
[2019-12-19 05:55] LABS: ANION GAP 6 (5-19); BLOOD UREA NITROGEN 12 mg/dL (7-20); CALCIUM 9.2 mg/dL (8.4-10.2); CARBON DIOXIDE 23 mmol/L (22-30); CHLORIDE 104 mmol/L (98-107); GLUCOSE 92 mg/dL (75-110)
[2019-12-19] MEDS: HEPARIN SOD (PORCINE) 5,000 UNIT/ML 1 ML VIAL SUBCUT SCH ×3 (06:35→21:38)
[2019-12-19] MEDS: METOPROLOL TARTRATE 50 MG TABLET PO SCH ×2 (09:09→21:45)
[2019-12-19] MEDS: AMLODIPINE BESYLATE 5 MG TABLET PO SCH (09:09)
[2019-12-19] MEDS: INSULIN GLARGINE,HUM.REC.ANLOG 1,000 UNIT/10 ML VIAL SUBCUT SCH ×2 (09:10→21:37)
[2019-12-19] MEDS: PANTOPRAZOLE SODIUM 40 MG VIAL IV SCH ×2 (09:10→21:38)
[2019-12-19] MEDS: INSULIN LISPRO 100 UNIT/ML 3 ML VIAL SUBCUT SCH ×4 (09:57→21:37)
--- NOTE | 2019-12-19 10:20 | EKG REPORT ---
SEVERITY:- BORDERLINE ECG - SINUS TACHYCARDIA BORDERLINE T ABNORMALITIES, INFERIOR LEADS : Confirmed by: Opal Garcia 19-Dec-2019 10:19:44
--- NOTE | 2019-12-19 17:16 | PDOC PROGRESS REPORT ---
Subjective Progress Note for:: 12/19/19 Subjective:: No complaints. Patient states she feels well Reason For Visit: ACUTE METABOLIC ACIDOSIS,ACUTE GASTROENTERITIS, Physical Exam Vital Signs: Temp Pulse Resp BP Pulse Ox 98.6 F 84 22 H 151/78 H 99 12/19/19 16:00 12/19/19 16:00 12/19/19 16:00 12/19/19 16:00 12/19/19 16:00 Intake & Output 12/18/19 12/19/19 12/20/19 06:59 06:59 06:59 Intake Total 2008 3552 Output Total 300 3050 400 Balance 1709 503 -400 Weight 73.6 kg 73 kg General appearance: PRESENT: no acute distress, cooperative, obese Head exam: PRESENT: atraumatic, normocephalic Eye exam: PRESENT: conjunctiva pink Mouth exam: PRESENT: moist, tongue midline Neck exam: PRESENT: full ROM. ABSENT: JVD Respiratory exam: PRESENT: clear to auscultation bernardo, symmetrical, unlabored. ABSENT: accessory muscle use Cardiovascular exam: PRESENT: RRR, +S1, +S2 Pulses: PRESENT: normal carotid pulses, normal radial pulses Vascular exam: PRESENT: normal capillary refill GI/Abdominal exam: PRESENT: normal bowel sounds, soft. ABSENT: distended, tenderness Rectal exam: PRESENT: deferred Extremities exam: ABSENT: calf tenderness, pedal edema Neurological exam: PRESENT: alert, awake, oriented to person, oriented to place, oriented to time, oriented to situation, CN II-XII grossly intact Psychiatric exam: PRESENT: appropriate affect, normal mood. ABSENT: agitated, anxious Skin exam: PRESENT: dry, normal color, warm Results Laboratory Results: 12/19/19 05:28 12/19/19 05:28 12/19/19 12/19/19 05:28 05:28 WBC 11.2 H RBC 4.61 Hgb 11.6 L Hct 36.0 MCV 78 L MCH 25.2 L MCHC 32.3 RDW 17.6 H Plt Count 261 Sodium 133.0 L Potassium 4.0 Chloride 104 Carbon Dioxide 23 Anion Gap 6 BUN 12 Creatinine 1.02 Est GFR ( Amer) > 60 Glucose 92 Calcium 9.2 Magnesium 2.1 12/17/19 23:02 Troponin I < 0.012 Impressions: Abdomen/Pelvis CT 12/17/19 17:44 IMPRESSION: There is thickening of the distal esophagus again noted which may represent evidence of esophagitis. An underlying mass is not fully excluded. A small hiatal hernia is also present. Hepatic steatosis Assessment and Plan - Diagnosis (1) DKA (diabetic ketoacidosis) Qualifiers: Diabetes mellitus type: type 2 Diabetes mellitus complication detail: without coma Qualified Code(s): E11.10 - Type 2 diabetes mellitus with ketoacidosis without coma Is this a current diagnosis for this admission?: Yes Plan: Anion gap closed and patient no longer acidotic Tolerating p.o. without nausea/vomiting continue basal (Lantus) insulin 10 units subcutaneous every 12 hours Continue FS BS with SSI correction scale Patient did have borderline blood sugar this a.m. thus we will not titrate basal insulin at this time (2) Abdominal pain Qualifiers: Abdominal location: generalized Qualified Code(s): R10.84 - Generalized abdominal pain Is this a current diagnosis for this admission?: Yes Plan: Patient no longer having abdominal pain Resume dicyclomine 10 mg p.o. 4 times daily (3) HTN (hypertension) Qualifiers: Hypertension type: essential hypertension Qualified Code(s): I10 - Essential (primary) hypertension Is this a current diagnosis for this admission?: Yes Plan: BP remains slightly elevated however with history of HOCM will avoid hypotension Continue amlodipine 5 mg p.o. daily Continue lisinopril 10 mg p.o. daily Continue metoprolol tartrate 50 mg p.o. every 12 hours Continue clonidine transdermal 0.2 mg per 24 hours topically (4) Dyslipidemia Is this a current diagnosis for this admission?: Yes Plan: Resume statin, patient on crestor 40 mg po daily which is non-formulary Product substitution per pharmacy (5) Tachycardia Is this a current diagnosis for this admission?: Yes Plan: Patient no longer tachycardic Continue to monitor (6) Hyponatremia Is this a current diagnosis for this admission?: Yes Plan: For natremia mild patient asymptomatic No treatment indicated Monitor (7) Hypokalemia Is this a current diagnosis for this admission?: Yes Plan: Hypokalemia resolved Continue to monitor (8) HOCM (hypertrophic obstructive cardiomyopathy) Is this a current diagnosis for this admission?: Yes Plan: We will tolerate higher BP (9) Leukocytosis Qualifiers: Leukocytosis type: other Qualified Code(s): D72.828 - Other elevated white blood cell count Is this a current diagnosis for this admission?: Yes Plan: WBC trending down Likely reactionary Afebrile and nontoxic in appearance Continue to monitor off antibiotics (10) Nausea and vomiting Is this a current diagnosis for this admission?: Yes Plan: Patient no longer nauseated Tolerating p.o. diet (11) Anemia Is this a current diagnosis for this admission?: Yes Plan: Anemia mild Drop in H/H likely related to volume resuscitation Recommend outpatient work-up - Time Time Spent with patient: 25-34 minutes Medications reviewed and adjusted accordingly: Yes Anticipated Discharge Disposition: Home, Self Care Anticipated Discharge: Other
[2019-12-19] MEDS ORDERED: DICYCLOMINE HCL 10 MG CAPSULE ONE (18:24)
[2019-12-19] MEDS: DICYCLOMINE HCL 10 MG CAPSULE PO SCH ×2 (18:27→21:39)
[2019-12-19] MEDS: LISINOPRIL 10 MG TABLET PO SCH (21:45)
[2019-12-19] MEDS ORDERED: ATORVASTATIN CALCIUM 80 MG TABLET PO SCH (22:00)
[2019-12-20 04:54] LABS: HEMATOCRIT 35.5 % (36.0-47.0); HEMOGLOBIN 11.6 g/dL (12.0-15.5); MEAN CORPUSCULAR HEMOGLOBIN 25.5 pg (27.0-33.4); MEAN CORPUSCULAR HGB CONC 32.6 g/dL (32.0-36.0); MEAN CORPUSCULAR VOLUME 78 fl (80-97); PLATELET COUNT 281 10^3/uL (150-450); RED BLOOD COUNT 4.54 10^6/uL (3.72-5.28); RED CELL DISTRIBUTION WIDTH 16.9 % (11.5-14.0); WHITE BLOOD COUNT 9.4 10^3/uL (4.0-10.5)
[2019-12-20 05:15] LABS: ANION GAP 7 (5-19); BLOOD UREA NITROGEN 13 mg/dL (7-20); CALCIUM 9.4 mg/dL (8.4-10.2); CARBON DIOXIDE 22 mmol/L (22-30); CHLORIDE 104 mmol/L (98-107); GLUCOSE 125 mg/dL (75-110)
[2019-12-20] MEDS: HEPARIN SOD (PORCINE) 5,000 UNIT/ML 1 ML VIAL SUBCUT SCH ×2 (06:02→13:21)
[2019-12-20] MEDS: MORPHINE SULFATE 10 MG/ML INJ IV PRN ×2 (07:55→13:19)
[2019-12-20] MEDS: METOPROLOL TARTRATE 50 MG TABLET PO SCH (09:02)
[2019-12-20] MEDS: PANTOPRAZOLE SODIUM 40 MG VIAL IV SCH (09:02)
[2019-12-20] MEDS: AMLODIPINE BESYLATE 5 MG TABLET PO SCH (09:02)
[2019-12-20] MEDS: DICYCLOMINE HCL 10 MG CAPSULE PO SCH ×2 (09:03→13:22)
[2019-12-20] MEDS: INSULIN GLARGINE,HUM.REC.ANLOG 1,000 UNIT/10 ML VIAL SUBCUT SCH (09:03)
[2019-12-20] MEDS: INSULIN LISPRO 100 UNIT/ML 3 ML VIAL SUBCUT SCH ×2 (09:03→11:44)
--- NOTE | 2019-12-20 14:59 | PDOC DISCHARGE SUMMARY ---
Impression - Admit/DC Date/PCP Admission Date/Primary Care Provider: 12/18/19 03:00 Discharge Date: 12/20/19 - Discharge Diagnosis (1) DKA (diabetic ketoacidosis) Is this a current diagnosis for this admission?: Yes (2) Abdominal pain Is this a current diagnosis for this admission?: Yes (3) HTN (hypertension) Is this a current diagnosis for this admission?: Yes (4) Dyslipidemia Is this a current diagnosis for this admission?: Yes (5) Tachycardia Is this a current diagnosis for this admission?: Yes (6) Hyponatremia Is this a current diagnosis for this admission?: Yes (7) Hypokalemia Is this a current diagnosis for this admission?: Yes (8) HOCM (hypertrophic obstructive cardiomyopathy) Is this a current diagnosis for this admission?: Yes (9) Leukocytosis Is this a current diagnosis for this admission?: Yes (10) Nausea and vomiting Is this a current diagnosis for this admission?: Yes (11) Anemia Is this a current diagnosis for this admission?: Yes - Additional Information Resuscitation Status: Full Code Discharge Diet: Diabetic Discharge Activity: Activity As Tolerated Referrals: GLEN MCGRATH PA-C [NO LOCAL MD] - Follow up as needed Home Medications: Clonidine [Catapres-Tts 2 (0.2 mg/24 Hr) Transderm Ptch] 1 patch TD DIALLO@1000 0 07/22/19 Dicyclomine HCl [Bentyl 10 mg Capsule] 10 mg PO QID 07/22/19 Insulin Aspart [Novolog Flexpen] 3 unit SUBCUT MEALS 07/22/19 Rosuvastatin Calcium [Crestor] 40 mg PO DAILY 07/22/19 Amlodipine Besylate [Norvasc 10 mg Tablet] 10 mg PO DAILY #30 07/23/19 Lisinopril [Prinivil 10 mg Tablet] 10 mg PO DAILY 12/18/19 Insulin Glargine,Hum.rec.anlog [Lantus Insulin 100 Unit/1 ml 10 ml] 10 unit DIALLO BCUT Q12 unit 12/20/19 History of Present Illiness History of Present Illness: RUTH CA is a 44 year old female with PMH significant for DM II, HTN, dyslipidemia, arthritis, depression, and bipolar disorder who presented to the ED with complaints of a 1 day history of nausea/vomiting and diarrhea associated with abdominal pain. In the ED she was found to have a blood sugar of 300 with metabolic acidosis and an anion gap of 23. Patient was hydrated and insulin drip was started and the patient was admitted for further evaluation and treatm ent. Of note, the patient had been started on Jardiance approximately 1 week prior to presentation. Hospital Course Hospital Course: Later in the day of admission the patient's acidosis had resolved and her anion gap anion gap had closed. She was transitioned off the IV insulin and back onto subcutaneous insulin. Over the subsequent day her glucose was adequately controlled on significantly less insulin than she was on FORM COVERER. Additionally, home antihypertensive therapy was resumed however her amlodipine dose was halved and she was started on metoprolol. At the time of discharge her amlodipine was returned to her FORM COVERER dose and she was not continued on metoprolol. She was instructed that she will need to follow-up with her PCP for ongoing BP manage ment as well as with her palletiser operator in no more than than 1 week to be evaluated and for medication adjustments. (1) DKA (diabetic ketoacidosis) Qualifiers: Diabetes mellitus type: type 2 Diabetes mellitus complication detail: without coma Qualified Code(s): E11.10 - Type 2 diabetes mellitus with k etoacidosis without coma Is this a current diagnosis for this admission?: Yes Plan: Anion gap closed and patient no longer acidotic Tolerating p.o. without nausea/vomiting continue basal (Lantus) insulin 10 units subcutaneous every 12 hours Continue FS BS with SSI correction scale (2) Abdominal pain Qualifiers: Abdominal location: generalized Qualified Code(s): R10.84 - Generalized abdominal pain Is this a current diagnosis for this admission?: Yes Plan: Patient no longer having abdominal pain Resume dicyclomine 10 mg p.o. 4 times daily (3) HTN (hypertension) Qualifiers: Hypertension type: essential hypertension Qualified Code(s): I10 - Essential (primary) hypertension Is this a current diagnosis for this admission?: Yes Plan: BP remains slightly elevated however with history of HOCM will avoid hypotension Increase amlodipine to 10 mg p.o. daily (FORM COVERER dose) Continue lisinopril 10 mg p.o. daily Stop metoprolol tartrate Continue clonidine transdermal 0.2 mg per 24 hours topically (4) Dyslipidemia Is this a current diagnosis for this admission?: Yes Plan: Continue statin Product substitution per pharmacy (5) Tachycardia Is this a current diagnosis for this admission?: Yes Plan: Patient no longer tachycardic Continue to monitor (6) Hyponatremia Is this a current diagnosis for this admission?: Yes Plan: Hyponatremia mild patient asymptomatic No treatment indicated (7) Hypokalemia Is this a current diagnosis for this admission?: Yes Plan: Hypokalemia resolved (8) HOCM (hypertrophic obstructive cardiomyopathy) Is this a current diagnosis for this admission?: Yes Plan: We will tolerate higher BP (9) Leukocytosis Qualifiers: Leukocytosis type: other Qualified Code(s): D72.828 - Other elevated white blood cell count Is this a current diagnosis for this admission?: Yes Plan: Resolved Likely reactionary Afebrile and nontoxic in appearance (10) Nausea and vomiting Is this a current diagnosis for this admission?: Yes Plan: Patient no longer nauseated Tolerating p.o. diet (11) Anemia Is this a current diagnosis for this admission?: Yes Plan: Anemia mild Drop in H/H likely related to volume resuscitation Recommend outpatient work-up Physical Exam Vital Signs: Temp Pulse Resp BP Pulse Ox 98.7 F 84 42 H 161/84 H 100 12/20/19 07:31 12/20/19 07:31 12/20/19 11:00 12/20/19 09:32 12/20/19 11:00 Intake & Output 12/19/19 12/20/19 12/21/19 06:59 06:59 06:59 Intake Total 3553 240 Output Total 3050 1000 1 Balance 503 -1000 239 Weight 73 kg 74.5 kg General appearance: PRESENT: no acute distress, cooperative, obese Head exam: PRESENT: atraumatic, normocephalic Eye exam: PRESENT: conjunctiva pink Mouth exam: PRESENT: moist, tongue midline Neck exam: ABSENT: JVD Respiratory exam: PRESENT: clear to auscultation bernardo, symmetrical, unlabored. ABSENT: accessory muscle use Cardiovascular exam: PRESENT: RRR, +S1, +S2 Pulses: PRESENT: normal carotid pulses, normal radial pulses GI/Abdominal exam: PRESENT: normal bowel sounds, soft. ABSENT: distended, tenderness Rectal exam: PRESENT: deferred Extremities exam: PRESENT: full ROM. ABSENT: calf tenderness, clubbing, pedal edema Neurological exam: PRESENT: alert, awake, oriented to person, oriented to place, oriented to time, CN II-XII grossly intact Psychiatric exam: ABSENT: agitated, anxious Skin exam: PRESENT: dry, normal color, warm Results Laboratory Results: WBC 9.4 10^3/uL (4.0-10.5) 12/20/19 04:27 RBC 4.54 10^6/uL (3.72-5.28) 12/20/19 04:27 Hgb 11.6 g/dL (12.0-15.5) L 12/20/19 04:27 Hct 35.5 % (36.0-47.0) L 12/20/19 04:27 MCV 78 fl (80-97) L 12/20/19 04:27 MCH 25.5 pg (27.0-33.4) L 12/20/19 04:27 MCHC 32.6 g/dL (32.0-36.0) 12/20/19 04:27 RDW 16.9 % (11.5-14.0) H 12/20/19 04:27 Plt Count 281 10^3/uL (150-450) 12/20/19 04:27 Lymph % (Auto) 8.6 % (13-45) L 12/17/19 23:02 [place] % (Auto) 5.7 % (3-13) 12/17/19 23:02 Eos % (Auto) 0.0 % (0-6) 12/17/19 23:02 Baso % (Auto) 0.2 % (0-2) 12/17/19 23:02 Absolute Neuts (auto) 14.8 10^3/uL (1.7-8.2) H 12/17/19 23:02 Absolute Lymphs (auto) 1.5 10^3/uL (0.5-4.7) 12/17/19 23:02 Absolute Monos (auto) 1.0 10^3/uL (0.1-1.4) 12/17/19 23:02 Absolute Eos (auto) 0.0 10^3/uL (0.0-0.6) 12/17/19 23:02 Absolute Basos (auto) 0.0 10^3/uL (0.0-0.2) 12/17/19 23:02 Seg Neutrophils % 85.5 % (42-78) H 12/17/19 23:02 VBG pH 7.39 (7.30-7.42) 12/17/19 23:02 VBG pCO2 32.4 mmHg (35-63) L 12/17/19 23:02 VBG HCO3 19.1 mmol/L (20-32) L 12/17/19 23:02 VBG Base Excess -4.9 mmol/L 12/17/19 23:02 Sodium 132.8 mmol/L (137-145) L 12/20/19 04:27 Potassium 4.0 mmol/L (3.6-5.0) 12/20/19 04:27 Chloride 104 mmol/L (98-107) 12/20/19 04:27 Carbon Dioxide 22 mmol/L (22-30) 12/20/19 04:27 Anion Gap 7 (5-19) 12/20/19 04:27 BUN 13 mg/dL (7-20) 12/20/19 04:27 Creatinine 0.96 mg/dL (0.52-1.25) 12/20/19 04:27 Est GFR ( Amer) > 60 (>60) 12/20/19 04:27 Est GFR (MDRD) Non-Af > 60 (>60) 12/20/19 04:27 Glucose 125 mg/dL (75-110) H 12/20/19 04:27 POC Glucose 134 mg/dL (70-110) H 12/20/19 11:09 Hemoglobin A1c % 9.3 % (4.7-6.0) H 12/18/19 07:02 Calcium 9.4 mg/dL (8.4-10.2) 12/20/19 04:27 Magnesium 2.1 mg/dL (1.6-2.3) 12/20/19 04:27 Total Bilirubin 0.8 mg/dL (0.2-1.3) 12/17/19 23:02 Direct Bilirubin 0.1 mg/dL (0.0-0.4) 12/17/19 23:02 Neonat Total Bilirubin Not Reportable 12/17/19 23:02 Neonat Direct Bilirubin Not Reportable 12/17/19 23:02 Neonat Indirect Bili Not Reportable 12/17/19 23:02 AST 39 U/L (14-36) H 12/17/19 23:02 ALT 30 U/L (<35) 12/17/19 23:02 Alkaline Phosphatase 115 U/L (38-126) 12/17/19 23:02 Troponin I < 0.012 ng/mL 12/17/19 23:02 Total Protein 9.4 g/dL (6.3-8.2) H 12/17/19 23:02 Albumin 5.4 g/dL (3.5-5.0) H 12/17/19 23:02 Lipase 114.6 U/L (23-300) 12/17/19 23:02 Urine Color YELLOW 12/17/19 17:45 Urine Appearance SLIGHTLY-CLOUDY 12/17/19 17:45 Urine pH 6.0 (5.0-9.0) 12/17/19 17:45 Ur Specific [place] 1.031 12/17/19 17:45 Urine Protein 30 mg/dL (NEGATIVE) H 12/17/19 17:45 Urine Glucose (UA) >=500 mg/dL (NEGATIVE) H 12/17/19 17:45 Urine Ketones 20 mg/dL (NEGATIVE) H 12/17/19 17:45 Urine Blood NEGATIVE (NEGATIVE) 12/17/19 17:45 Urine Nitrite (Reflex) NEGATIVE (NEGATIVE) 12/17/19 17:45 Urine Bilirubin NEGATIVE (NEGATIVE) 12/17/19 17:45 Urine Urobilinogen NEGATIVE mg/dL (<2.0) 12/17/19 17:45 Leukocyte Esterase Rfl TRACE (NEGATIVE) H 12/17/19 17:45 Urine Bacteria (Auto) TRACE /HPF 12/17/19 17:45 Urine WBC (Reflex) 2 /HPF 12/17/19 17:45 Squamous Epi Cells Auto 5 /HPF 12/17/19 17:45 Urine Mucus (Auto) RARE /LPF 12/17/19 17:45 Urine Ascorbic Acid NEGATIVE (NEGATIVE) 12/17/19 17:45 Urine HCG, Qual NEGATIVE (NEGATIVE) 12/17/19 17:45 Urine Opiates Screen NEGATIVE 12/17/19 17:45 Urine Methadone Screen NEGATIVE 12/17/19 17:45 Ur Barbiturates Screen NEGATIVE 12/17/19 17:45 Ur Phencyclidine Scrn NEGATIVE 12/17/19 17:45 Ur Amphetamines Screen NEGATIVE 12/17/19 17:45 U Benzodiazepines Scrn NEGATIVE 12/17/19 17:45 Urine Cocaine Screen NEGATIVE 12/17/19 17:45 U Marijuana (THC) Screen NEGATIVE 12/17/19 17:45 12/17/19 23:02 Troponin I < 0.012 Impressions: Abdomen/Pelvis CT 12/17/19 17:44 IMPRESSION: There is thickening of the distal esophagus again noted which may represent evidence of esophagitis. An underlying mass is not fully excluded. A small hiatal hernia is also present. Hepatic steatosis Stroke Is this a Stroke Patient?: No Acute Heart Failure - Is this a Heart Failure Patient?: No
[2019-12-20 15:39] VITALS: BP 129/69
[2019-12-22] MEDS ORDERED: CLONIDINE 0.2 MG/24 HR PATCH.TDWK TD SCH (10:00)
== END 2019-12-20 16:42 | disposition home or self-care (01) | DRG 638 ==
LOC: ER 17:27 → EH 12-18 03:00 → ICU 12-18 05:02 → 5 12-20 11:52
PROVIDERS: ADMIT Emergency Medicine; ATTEND Nurse Practitioner
DX: E11.10 Type 2 diabetes mellitus with ketoacidosis without coma (principal); E87.1 Hypo-osmolality and hyponatremia; I42.1 Obstructive hypertrophic cardiomyopathy; N17.9 Acute kidney failure, unspecified; K52.9 Noninfective gastroenteritis and colitis, unspecified; E11.43 Type 2 diabetes mellitus with diabetic autonomic (poly)neuropathy; K31.84 Gastroparesis; I10 Essential (primary) hypertension; E78.5 Hyperlipidemia, unspecified; L30.9 Dermatitis, unspecified; E87.6 Hypokalemia; F32.9 Major depressive disorder, single episode, unspecified; D64.9 Anemia, unspecified; D72.828 Other elevated white blood cell count; E66.9 Obesity, unspecified; K21.9 Gastro-esophageal reflux disease without esophagitis; R19.7 Diarrhea, unspecified; F41.1 Generalized anxiety disorder; F31.70 Bipolar disorder, currently in remission, most recent episode unspecified; E78.00 Pure hypercholesterolemia, unspecified; Z79.899 Other long term (current) drug therapy; Z79.4 Long term (current) use of insulin; Z86.14 Personal history of Methicillin resistant Staphylococcus aureus infection; Z88.8 Allergy status to other drugs, medicaments and biological substances
CPT/HCPCS: 36415; 74177; 80048; 80053; 80307; 81001; 81025; 82803; 82962; 83036; 83690; 83735; 84484; 85025; 85027; 93005; 93010; 96361; 96374; 96375; 99285; C9113; J1630; J1644; J1815; J1885; J2060; J2270; J3480; J3490; J7030; J7050; J7060; J7120; S0028

== ENCOUNTER 2019-12-31 01:39 | Emergency (ER) | payer MEDICARE, MEDICAID ==
[2019-12-31] MEDS ORDERED: HALOPERIDOL LACTATE INJ 5 MG/1 ML VIAL IM ONE (03:50)
[2019-12-31] MEDS ORDERED: DIPHENHYDRAMINE HCL 50 MG/ML VIAL IV ONE ×2 (03:51→06:12)
[2019-12-31] MEDS ORDERED: NORMAL SALINE 1000 ML 1,000 ML IV ONE ×2 (03:51→05:02)
[2019-12-31] MEDS ORDERED: FAMOTIDINE INJ/PF 20 MG/2 ML SDV IV ONE ×2 (03:51→06:12)
[2019-12-31] MEDS ORDERED: LORAZEPAM INJ 2 MG/1 ML VIAL IM ONE (03:51)
--- NOTE | 2019-12-31 03:53 | ER Document Report ---
ED GI/ - General Chief Complaint: Abdominal Pain Stated Complaint: ABDOMINAL PAIN Time Seen by Provider: 12/31/19 03:44 Notes: Patient is a 44-year-old female that comes emergency department for chief complaint of abdominal pain, abdominal cramping, and multiple episodes of vomiting. She states symptoms started this morning, she states she vomited 7 times during the day. She denies fever, chest pain, shortness of breath, flank pain, dysuria. Patient states she has a history of frequent episodes of the same thing, she was hospitalized approximately 2 weeks ago for metabolic acidosis, intractable vomiting. Patient is a history of insulin-dependent diabetes, hiatal hernia, GERD, chronic abdominal pain, hypertension, hyperlipidemia. She denies alcohol, recreational drugs, smoking. She states she has an appointment with gastroenterology in the morning. TRAVEL OUTSIDE OF THE [place] IN LAST 30 DAYS: No - Related Data Allergies/Adverse Reactions: metoclopramide HCl [From Reglan] Allergy (Unknown, Verified 12/31/19 03:16) Past Medical History - General Information source: Patient - Social History Smoking Status: Never Smoker Frequency of alcohol use: None Drug Abuse: None Lives with: Family Family History: DM, Hypertension Patient has homicidal ideation: No - Past Medical History Cardiac Medical History: Reports: Hx Hypercholesterolemia, Hx Hypertension Denies: Hx Atrial Fibrillation, Hx Coronary Artery Disease, Hx DVT, Hx Pulmonary Embolism Pulmonary Medical History: Denies: Hx Asthma, Hx COPD Neurological Medical History: Denies: Hx Seizures Endocrine Medical History: Reports: Hx Diabetes Mellitus Type 2. Denies: Hx Diabetes Mellitus Type 1, Hx Hyperthyroidism, Hx Hypothyroidism Renal/ Medical History: Reports: Hx Renal Insufficiency. Denies: Hx Peritoneal Dialysis GI Medical History: Reports: Hx Gastroesophageal Reflux Disease, Hx Hiatal Hernia. Denies: Hx Cirrhosis, Hx Crohn's Disease, Hx Hepatitis, Hx Ulcerative Colitis Musculoskeletal Medical History: Reports Hx Arthritis, Denies Hx Gout Skin Medical History: Reports Hx Eczema, Denies Hx Psoriasis Psychiatric Medical History: Reports: Hx Anxiety, Hx Bipolar Disorder, Hx Depression Infectious Medical History: Reports: Hx MRSA. Denies: Hx Hepatitis Past Surgical History: Reports: Hx Cholecystectomy - Immunizations Immunizations up to date: Yes Hx Diphtheria, Pertussis, Tetanus Vaccination: Yes - unknown Hx Pneumococcal Vaccination: 05/04/10 Review of Systems - Review of Systems Constitutional: See HPI EENT: No symptoms reported Cardiovascular: No symptoms reported Respiratory: No symptoms reported Gastrointestinal: See HPI Genitourinary: No symptoms reported Female Genitourinary: No symptoms reported Musculoskeletal: No symptoms reported Skin: No symptoms reported Hematologic/Lymphatic: No symptoms reported Neurological/Psychological: No symptoms reported Physical Exam - Vital signs Vitals: Temp Pulse Resp BP Pulse Ox 98.6 F 132 H 17 150/106 H 98 12/31/19 01:56 12/31/19 01:56 12/31/19 01:56 12/31/19 01:56 12/31/19 01:56 - Notes Notes: GENERAL: Patient standing in the room rocking back and forth on her feet and wailing at the same time HEAD: Normocephalic, atraumatic. EYES: Pupils equal, round, and reactive to light. Extraocular movements intact. ENT: Oral mucosa moist, tongue midline. Oropharynx unremarkable. Airway patent. NECK: Full range of motion. Supple. Trachea midline. No lymphadenopathy. LUNGS: Clear to auscultation bilaterally, no wheezes, rales, or rhonchi. No respiratory distress. Non-tender chest wall. HEART: Regular rate and rhythm. No murmur ABDOMEN: Patient complains with palpation in any quadrant although the abdomen is still soft without any noted guarding or specific tenderness. Bowel sounds present throughout. EXTREMITIES: Moves all 4 extremities spontaneously. No edema, normal radial and dorsalis pedis pulses bilaterally. No cyanosis. BACK: no cervical, thoracic, lumbar midline tenderness. No saddle anesthesia, normal distal neurovascular exam. Moves all extremities in full range of motion. NEUROLOGICAL: Alert and oriented x3. Normal speech. Cranial nerves II through XII grossly intact. Strength 5/5 in all extremities. PSYCH: Patient agitated but is also cooperative and responsive. She answers questions appropriately. SKIN: Warm, dry, normal turgor. No rashes or lesions noted. Course - Re-evaluation Re-evalutation: Patient initially agitated but is still cooperative, she got on the bed, cooperated with an abdominal exam and regular exam, abdomen is not concerning, there is no guarding or noted tenderness. Patient is tachycardic and hypertensive. Patient was medicated with IM medications first, initially we had difficulty obtaining IV access. After initial medications and starting IV fluids heart rate significantly improved and is down to 104. Blood pressure improved. Patient sleepy but arousable. CBC shows mild leukocytosis with elevation of neutrophils but no bandemia. Chemistry shows hyperglycemia with glucose of 380 and bicarb at 18 but normal anion gap. Small amount of ketones in the urine. Unremarkable otherwise. Patient is significantly better compared to her previous admission a couple weeks ago and compared to my previous evaluations of her. Patient will be given additional IV fluids and we will attempt p.o. trial. - Vital Signs Vital signs: Temp Pulse Resp BP Pulse Ox 98 F 99 18 142/77 H 99 12/31/19 09:58 12/31/19 09:58 12/31/19 09:58 12/31/19 09:58 12/31/19 09:58 - Laboratory Result Diagrams: 12/31/19 04:19 12/31/19 04:19 Laboratory results interpreted by me: 12/31/19 12/31/19 12/31/19 03:40 04:19 04:19 WBC 12.8 H MCV 79 L MCH 25.2 L MCHC 31.9 L RDW 16.7 H Lymph % (Auto) 9.8 L Absolute Neuts (auto) 11.0 H Seg Neutrophils % 86.6 H Sodium 135.4 L Carbon Dioxide 18 L Glucose 380 H Calcium 10.5 H Total Protein 8.7 H Urine Protein 100 H Urine Glucose (UA) >=500 H Urine Ketones 20 H - EKG Interpretation by Me Additional EKG results interpreted by me: EKG shows sinus tachycardia at a rate of 128, QTc of 438, normal axis, no T wave inversions or ST segment changes in consecutive leads. No significant change from prior. Discharge - Discharge Clinical Impression: Hyperglycemia, Chronic abdominal pain Nausea and vomiting Qualifiers: Vomiting type: unspecified Vomiting Intractability: non-intractable Qualified Code(s): R11.2 - Nausea with vomiting, unspecified Condition: Stable Disposition: HOME, SELF-CARE Additional Instructions: You have been evaluated and treated for your abdominal pain, vomiting, and dehydration. Continue your current medications. Take the Phenergan for nausea, take the Carafate to help with recovery of inflammation of your upper gastrointestinal tract, avoid NSAIDs, caffeine, smoking, alcohol, spicy food. 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 Return if you worsen including uncontrolled vomiting, severe worsening pain, fever, black stools, vomiting blood, or any other concerning symptoms. Prescriptions: Sucralfate [Carafate 1 gm Tablet] 1 gm PO QID #20 tablet Promethazine HCl [Phenergan 25 mg Tablet] 25 mg PO Q6H PRN #15 tablet PRN Reason:
[2019-12-31 04:28] LABS: ABSOLUTE BASOPHILS # (AUTO) 0.1 10^3/uL (0.0-0.2); ABSOLUTE LYMPHOCYTES (AUTO) 1.3 10^3/uL (0.5-4.7); ABSOLUTE MONOCYTES (AUTO) 0.4 10^3/uL (0.1-1.4); BASOPHILS % (AUTO) 0.4 % (0-2); HEMATOCRIT 37.9 % (36.0-47.0); HEMOGLOBIN 12.1 g/dL (12.0-15.5); LYMPHOCYTES % (AUTO) 9.8 % (13-45); MEAN CORPUSCULAR HEMOGLOBIN 25.2 pg (27.0-33.4); MEAN CORPUSCULAR HGB CONC 31.9 g/dL (32.0-36.0); MEAN CORPUSCULAR VOLUME 79 fl (80-97); MONOCYTES % (AUTO) 3.2 % (3-13); PLATELET COUNT 407 10^3/uL (150-450); RED BLOOD COUNT 4.81 10^6/uL (3.72-5.28); RED CELL DISTRIBUTION WIDTH 16.7 % (11.5-14.0); SEGMENTED NEUTROPHILS % (AUTO) 86.6 % (42-78); TOTAL CELLS COUNTED % (AUTO) 100 %; WHITE BLOOD COUNT 12.8 10^3/uL (4.0-10.5)
[2019-12-31 04:44] LABS: ALBUMIN 4.9 g/dL (3.5-5.0); ALKALINE PHOSPHATASE 114 U/L (38-126); ANION GAP 15 (5-19); ASPARTATE AMINO TRANSFERASE 28 U/L (14-36); BILIRUBIN,TOTAL 0.5 mg/dL (0.2-1.3); BLOOD UREA NITROGEN 14 mg/dL (7-20); CALCIUM 10.5 mg/dL (8.4-10.2); CARBON DIOXIDE 18 mmol/L (22-30); CHLORIDE 102 mmol/L (98-107); GLUCOSE 380 mg/dL (75-110); POTASSIUM 4.5 mmol/L (3.6-5.0); TOTAL PROTEIN 8.7 g/dL (6.3-8.2)
[2019-12-31 04:55] LABS: APPEARANCE,URINE CLEAR; BILIRUBIN,URINE NEGATIVE (NEGATIVE); COLOR,URINE YELLOW; GLUCOSE, URINE >=500 mg/dL (NEGATIVE); KETONES,URINE 20 mg/dL (NEGATIVE); LEUKOCYTE ESTERASE,URINE NEGATIVE (NEGATIVE); NITRITE,URINE NEGATIVE (NEGATIVE); PROTEIN,URINE 100 mg/dL (NEGATIVE); URINE SPECIFIC GRAVITY 1.024; UROBILINOGEN,URINE NEGATIVE mg/dL (<2.0)
--- NOTE | 2019-12-31 07:18 | EKG REPORT ---
SEVERITY:- BORDERLINE ECG - SINUS TACHYCARDIA BORDERLINE T ABNORMALITIES, INFERIOR LEADS : Confirmed by: Eduardo Novak MD 31-Dec-2019 07:18:19
[2019-12-31 09:59] VITALS: BP 142/77
== END 2019-12-31 09:59 | disposition home or self-care (01) ==
LOC: ER 01:39
DX: E11.65 Type 2 diabetes mellitus with hyperglycemia (principal); R10.9 Unspecified abdominal pain; G89.29 Other chronic pain; R11.2 Nausea with vomiting, unspecified; Z79.4 Long term (current) use of insulin; Z88.8 Allergy status to other drugs, medicaments and biological substances
CPT/HCPCS: 93005; 99284; 96372; 96361; 96374; 96375; 36415; 83690; 84703; 85025; 80053; 81001; 93010; J1200; J1630; J2060; J7030; S0028

== ENCOUNTER 2020-01-20 08:09 | Emergency (ER) | payer MEDICARE, MEDICAID ==
--- NOTE | 2020-01-20 08:32 | ER Document Report ---
ED GI/ - General Stated Complaint: ABDOMINAL PAIN Time Seen by Provider: 01/20/20 08:30 Primary Care Provider: GLEN MCGRATH PA-C [Primary Care Provider] - Follow up as needed TRAVEL OUTSIDE OF THE [place] IN LAST 30 DAYS: No - HPI Notes: 01/20/20 08:51 44-year-old female presents with nausea, vomiting and abdominal pain. Patient states that she woke up at 0130 this morning with abdominal pain, she describes it as "my stomach", "I don't know", and that pain is all over. Somewhat limited in her description of abdominal pain. She did not take any medication at home for her symptoms. Additionally did not take any of her usual medications, including insulin. She states that she had some diarrhea yesterday. She describes her emesis as green in color. She states that this is the same abdominal pain and symptoms that she typically comes to the emergency department for. She denies dysuria or fever. Patient received 100 mcg of fentanyl via EMS. She is requesting morphine or Dilaudid. - Related Data Allergies/Adverse Reactions: metoclopramide HCl [From Reglan] Allergy (Unknown, Verified 01/08/20 12:34) Past Medical History - General Information source: Patient - Social History Smoking Status: Unknown if Ever Smoked Family History: DM, Hypertension - Past Medical History Cardiac Medical History: Reports: Hx Hypercholesterolemia, Hx Hypertension Denies: Hx Atrial Fibrillation, Hx Coronary Artery Disease, Hx DVT, Hx Pulmonary Embolism Pulmonary Medical History: Denies: Hx Asthma, Hx COPD Neurological Medical History: Denies: Hx Seizures Endocrine Medical History: Reports: Hx Diabetes Mellitus Type 2. Denies: Hx Diabetes Mellitus Type 1, Hx Hyperthyroidism, Hx Hypothyroidism Renal/ Medical History: Reports: Hx Renal Insufficiency. Denies: Hx Peritoneal Dialysis GI Medical History: Reports: Hx Gastroesophageal Reflux Disease, Hx Hiatal Hernia. Denies: Hx Cirrhosis, Hx Crohn's Disease, Hx Hepatitis, Hx Ulcerative Colitis Musculoskeletal Medical History: Reports Hx Arthritis, Denies Hx Gout Skin Medical History: Reports Hx Eczema, Denies Hx Psoriasis Psychiatric Medical History: Reports: Hx Anxiety, Hx Bipolar Disorder, Hx Depression Infectious Medical History: Reports: Hx MRSA. Denies: Hx Hepatitis Past Surgical History: Reports: Hx Cholecystectomy - Immunizations Immunizations up to date: Yes Hx Diphtheria, Pertussis, Tetanus Vaccination: Yes - unknown Hx Pneumococcal Vaccination: 05/04/10 Review of Systems - Review of Systems Constitutional: denies: Fever EENT: No symptoms reported Cardiovascular: denies: Chest pain Respiratory: denies: Short of breath Gastrointestinal: Abdominal pain, Nausea, Vomiting Genitourinary: denies: Dysuria Female Genitourinary: No symptoms reported Musculoskeletal: No symptoms reported Skin: No symptoms reported Hematologic/Lymphatic: No symptoms reported Neurological/Psychological: No symptoms reported Physical Exam - Vital signs Vitals: Temp Resp BP Pulse Ox 98.1 F 29 H 203/118 H 100 01/20/20 08:14 01/20/20 08:14 01/20/20 08:14 01/20/20 08:14 - General General appearance: Alert - HEENT Head: Normocephalic, Atraumatic Eyes: No: Scleral icterus Pupils: PERRL - Respiratory Breath sounds: Normal - Cardiovascular Rhythm: Tachycardia Heart sounds: Normal auscultation - Abdominal Inspection: Obese Distension: No distension Bowel sounds: Normal Tenderness: Nontender. No: Guarding, Rebound - Extremities General lower extremity: No: Edema - Neurological Neuro grossly intact: Yes Cognition: Normal Orientation: AAOx4 - Psychological Associated symptoms: Restlessness - Skin Skin Temperature: Warm Course - Re-evaluation Re-evalutation: 01/20/20 08:54 44-year-old female here with N/V and abdominal pain. Long history of same with multiple ED visits. On exam she is alert and rather restless in bed. Her abdomen is soft, nondistended and and I do not find any focal areas of tenderness, overall it is non-peritoneal. She is tachycardic and hypertensive, suspect this to be combination of pain and not taking her medications. She is known to be a diabetic and has not taken insulin today, hyperglycemic on initial finger check, will evaluate for DKA. Suspect her presentation to be a to be attributed to combination of gastroparesis and chronic pain, low suspicion for intra-abdominal pathology at this time. Start with Zofran, Pepcid and morphine. Reassess. 01/20/20 09:06 Left external jugular 20-gauge IV placed. Patient tolerated well. 01/20/20 10:46 Labs reviewed. Patient does have a leukocytosis, suspect reactionary, it is within range of previous values. No have focal infection at this time. pH is not acidotic. Urine does not suggest UTI. UDS is negative. 01/20/20 10:51 Patient had reported nursing she is feeling better. Will order her home medications at this time, per med list lisinopril and metoprolol. We will also give dose of insulin. 01/20/20 11:18 1 into reevaluate patient. She was sitting on the floor and rolling around, stated that her symptoms have come back. Will try Haldol for symptomatic control. 01/20/20 12:14 Pt seen resting comfortably in bed, tachy improving 01/20/20 13:38 Patient seen ambulatory, she looks much improved. She reports she is feeling better and ready to go home. Her vitals have markedly improved. Return precautions were given, patient was stable at time of discharge. - Vital Signs Vital signs: Temp Pulse Resp BP Pulse Ox 98.1 F 16 143/99 H 99 01/20/20 08:14 01/20/20 13:01 01/20/20 13:00 01/20/20 13:01 - Laboratory Result Diagrams: 01/20/20 09:15 01/20/20 09:15 Laboratory results interpreted by me: 01/20/20 01/20/20 01/20/20 08:18 08:23 09:15 WBC 17.0 H MCV 77 L MCH 24.9 L RDW 17.6 H Lymph % (Auto) 10.1 L Absolute Neuts (auto) 14.5 H Seg Neutrophils % 85.6 H VBG pH VBG pCO2 Sodium Carbon Dioxide Glucose POC Glucose 327 H Calcium Alkaline Phosphatase Total Protein Urine Glucose (UA) >=500 H Urine Ketones 20 H Ur Leukocyte Esterase SMALL H 01/20/20 01/20/20 09:15 09:15 WBC MCV MCH RDW Lymph % (Auto) Absolute Neuts (auto) Seg Neutrophils % VBG pH 7.44 H VBG pCO2 31.7 L Sodium 136.7 L Carbon Dioxide 19 L Glucose 352 H POC Glucose Calcium 10.9 H Alkaline Phosphatase 129 H Total Protein 8.9 H Urine Glucose (UA) Urine Ketones Ur Leukocyte Esterase Procedures - Additional Procedures IV insertion Time performed: 09:05 Notes: 01/20/20 09:07 20-gauge left external jugular. Good blood return. Flushed easily. Sterile precautions used. Dressing applied. Discharge - Discharge Clinical Impression: Chronic abdominal pain, Drug-seeking behavior Nausea and vomiting Qualifiers: Vomiting type: unspecified Vomiting Intractability: non-intractable Qualified Code(s): R11.2 - Nausea with vomiting, unspecified Condition: Stable Disposition: HOME, SELF-CARE Additional Instructions: Please continue all your medications as prescribed. Be sure to drink plenty of fluids. Return to the emergency department for any concerning or worsening symptoms. Referrals: GLEN MCGRATH PA-C [Primary Care Provider] - Follow up as needed
[2020-01-20] MEDS ORDERED: ONDANSETRON HCL INJ/PF 4 MG/2 ML SDV IV ONE (08:40)
[2020-01-20] MEDS ORDERED: MORPHINE SULFATE 10 MG/ML INJ IV ONE (08:40)
[2020-01-20] MEDS ORDERED: FAMOTIDINE INJ/PF 20 MG/2 ML SDV IV ONE (08:40)
[2020-01-20] MEDS ORDERED: RINGERS SOLUTION,LACTATED 1,000 ML IV ONE (08:41)
[2020-01-20 08:59] LABS: APPEARANCE,URINE SLIGHTLY-CLOUDY; BILIRUBIN,URINE NEGATIVE (NEGATIVE); COLOR,URINE STRAW; GLUCOSE, URINE >=500 mg/dL (NEGATIVE); KETONES,URINE 20 mg/dL (NEGATIVE); LEUKOCYTE ESTERASE,URINE SMALL (NEGATIVE); NITRITE,URINE NEGATIVE (NEGATIVE); PROTEIN,URINE NEGATIVE (NEGATIVE); URINE SPECIFIC GRAVITY 1.016; UROBILINOGEN,URINE NEGATIVE mg/dL (<2.0)
[2020-01-20 09:16] LABS: URINE AMPHETAMINES SCREEN NEGATIVE; URINE BARBITURATES SCREEN NEGATIVE; URINE BENZODIAZEPINES SCREEN NEGATIVE; URINE COCAINE SCREEN NEGATIVE; URINE MARIJUANA (THC) SCREEN NEGATIVE; URINE METHADONE SCREEN NEGATIVE; URINE PHENCYCLIDINE SCREEN NEGATIVE
[2020-01-20 09:39] LABS: VENOUS BLOOD BASE EXCESS -2.4 mmol/L; VENOUS BLOOD HCO3 20.9 mmol/L (20-32); VENOUS BLOOD PCO2 31.7 mmHg (35-63); VENOUS BLOOD PH 7.44 (7.30-7.42)
[2020-01-20 09:40] LABS: ABSOLUTE BASOPHILS # (AUTO) 0.1 10^3/uL (0.0-0.2); ABSOLUTE LYMPHOCYTES (AUTO) 1.7 10^3/uL (0.5-4.7); ABSOLUTE MONOCYTES (AUTO) 0.7 10^3/uL (0.1-1.4); ABSOLUTE NEUT (AUTO) 14.5 10^3/uL (1.7-8.2); BASOPHILS % (AUTO) 0.3 % (0-2); HEMATOCRIT 37.9 % (36.0-47.0); HEMOGLOBIN 12.2 g/dL (12.0-15.5); LYMPHOCYTES % (AUTO) 10.1 % (13-45); MEAN CORPUSCULAR HEMOGLOBIN 24.9 pg (27.0-33.4); MEAN CORPUSCULAR HGB CONC 32.3 g/dL (32.0-36.0); MEAN CORPUSCULAR VOLUME 77 fl (80-97); PLATELET COUNT 384 10^3/uL (150-450); RED BLOOD COUNT 4.91 10^6/uL (3.72-5.28); RED CELL DISTRIBUTION WIDTH 17.6 % (11.5-14.0); SEGMENTED NEUTROPHILS % (AUTO) 85.6 % (42-78); TOTAL CELLS COUNTED % (AUTO) 100 %
[2020-01-20 10:02] LABS: ALBUMIN 4.9 g/dL (3.5-5.0); ALKALINE PHOSPHATASE 129 U/L (38-126); ANION GAP 15 (5-19); ASPARTATE AMINO TRANSFERASE 32 U/L (14-36); BILIRUBIN,DIRECT 0.2 mg/dL (0.0-0.4); BILIRUBIN,TOTAL 0.7 mg/dL (0.2-1.3); BLOOD UREA NITROGEN 15 mg/dL (7-20); CALCIUM 10.9 mg/dL (8.4-10.2); CARBON DIOXIDE 19 mmol/L (22-30); CHLORIDE 103 mmol/L (98-107); GLUCOSE 352 mg/dL (75-110); POTASSIUM 4.6 mmol/L (3.6-5.0); TOTAL PROTEIN 8.9 g/dL (6.3-8.2)
[2020-01-20] MEDS ORDERED: INSULIN LISPRO 100 UNIT/ML 3 ML VIAL SUBCUT ONE (10:50)
[2020-01-20] MEDS ORDERED: LISINOPRIL 10 MG TABLET PO ONE (10:50)
[2020-01-20] MEDS ORDERED: METOPROLOL TARTRATE 25 MG TABLET PO ONE (10:50)
[2020-01-20] MEDS ORDERED: HALOPERIDOL LACTATE INJ 5 MG/1 ML VIAL IV ONE (11:18)
[2020-01-20] MEDS ORDERED: DIPHENHYDRAMINE HCL 50 MG/ML VIAL IV ONE (11:18)
[2020-01-20 13:55] VITALS: BP 153/88
== END 2020-01-20 13:55 | disposition home or self-care (01) ==
LOC: ER 08:09
DX: R10.9 Unspecified abdominal pain (principal); R11.2 Nausea with vomiting, unspecified; Z79.899 Other long term (current) drug therapy; I10 Essential (primary) hypertension; E11.9 Type 2 diabetes mellitus without complications; Z76.5 Malingerer [conscious simulation]
CPT/HCPCS: 99284; 96361; 96374; 96375; 36415; 82962; 83690; 85025; 81025; 80053; 81001; 80307; 82803; J1200; J1630; A9270 ×3; J2270; J2405; J7120; S0028; J1815

== ENCOUNTER 2020-01-21 16:17 | Emergency (ER) | payer MEDICARE, MEDICAID ==
[2020-01-21] MEDS ORDERED: NORMAL SALINE 1000 ML 1,000 ML IV ONE ×2 (16:33→18:43)
--- NOTE | 2020-01-21 16:35 | ER Document Report ---
ED Medical Screen (RME) - General Chief Complaint: Abdominal Pain Stated Complaint: ABDOMINAL PAIN Time Seen by Provider: 01/21/20 16:27 Primary Care Provider: GLEN MCGRATH PA-C [Primary Care Provider] - Follow up as needed Mode of Arrival: Medic Information source: Patient Notes: Patient presents complaining of left lower quadrant abdominal pain with decreased urine output. Patient denies any nausea vomiting or diarrhea. Patient does have a history of chronic abdominal pain. Patient restless, tearful in triage. Patient tachycardic heart rate 140s. I have greeted and performed a rapid initial assessment of this patient. A comprehensive ED assessment and evaluation of the patient, analysis of test results and completion of the medical decision making process will be conducted by additional ED providers. TRAVEL OUTSIDE OF THE [place] IN LAST 30 DAYS: No - Related Data Allergies/Adverse Reactions: metoclopramide HCl [From Reglan] Allergy (Unknown, Verified 01/08/20 12:34) Past Medical History - Social History Chew tobacco use (# tins/day): No Frequency of alcohol use: None Drug Abuse: None Family history: DM, Hypertension - Past Medical History Cardiac Medical History: Reports: Hx Hypercholesterolemia, Hx Hypertension Denies: Hx Atrial Fibrillation, Hx Coronary Artery Disease, Hx DVT, Hx Pulm onary Embolism Pulmonary Medical History: Denies: Hx Asthma, Hx COPD Neurological Medical History: Denies: Hx Seizures Endocrine Medical History: Reports: Hx Diabetes Mellitus Type 2. Denies: Hx Diabetes Mellitus Type 1, Hx Hyperthyroidism, Hx Hypothyroidism Renal/ Medical History: Reports: Hx Renal Insufficiency. Denies: Hx Peritoneal Dialysis GI Medical History: Reports: Hx Gastroesophageal Reflux Disease, Hx Hiatal Hernia. Denies: Hx Cirrhosis, Hx Crohn's Disease, Hx Hepatitis, Hx Ulcerative Colitis Musculoskeltal Medical History: Reports Hx Arthritis, Denies Hx Gout Skin Medical History: Reports Hx Eczema, Denies Hx Psoriasis Psychiatric Medical History: Reports: Hx Anxiety, Hx Bipolar Disorder, Hx Depression Infectious Medical History: Reports: Hx MRSA. Denies: Hx Hepatitis Past Surgical History: Reports: Hx Cholecystectomy - Immunizations Immunizations up to date: Yes Hx Diphtheria, Pertussis, Tetanus Vaccination: Yes - unknown Physical Exam - Vital signs Vitals: Temp Pulse Resp BP Pulse Ox 97.5 F 145 H 20 152/93 H 100 01/21/20 16:28 01/21/20 16:28 01/21/20 16:28 01/21/20 16:28 01/21/20 16:28 - General General appearance: Alert, Anxious - Cardiovascular Rhythm: Tachycardia Heart sounds: S1 appreciated, S2 appreciated Course - Vital Signs Vital signs: Temp Pulse Resp BP Pulse Ox 97.5 F 145 H 20 152/93 H 100 01/21/20 16:28 01/21/20 16:28 01/21/20 16:28 01/21/20 16:28 01/21/20 16:28 Doctor's Discharge - Discharge Referrals: GLEN MCGRATH PA-C [Primary Care Provider] - Follow up as needed
[2020-01-21] MEDS ORDERED: HALOPERIDOL LACTATE INJ 5 MG/1 ML VIAL IM ONE (17:25)
[2020-01-21] MEDS ORDERED: MORPHINE SULFATE 10 MG/ML INJ IV ONE ×3 (17:25→23:38)
[2020-01-21] MEDS ORDERED: PANTOPRAZOLE SODIUM 40 MG VIAL IV ONE (17:26)
[2020-01-21] MEDS ORDERED: DIPHENHYDRAMINE HCL 50 MG/ML VIAL IV ONE ×2 (17:26→23:40)
[2020-01-21] MEDS ORDERED: LORAZEPAM INJ 2 MG/1 ML VIAL IV ONE (17:27)
--- NOTE | 2020-01-21 17:55 | ER Document Report ---
Entered by LILI PINEDA SCRIBE 01/21/20 0015 Acting as scribe for:ROSIE HURST DO ED GI/ - General Chief Complaint: Abdominal Pain Stated Complaint: ABDOMINAL PAIN Time Seen by Provider: 01/21/20 16:27 Primary Care Provider: GLEN MCGRATH PA-C [Primary Care Provider] - Follow up as needed Mode of Arrival: Medic Information source: Patient Notes: This 44 year old female patient with a history of HTN, HLD, IDDM, gastroparesis, GERD, hiatal hernia, and chronic abdominal pain brought in by EMS presents to the ED today with complaints of abdominal pain that started around 0500 this morning. Patient states "my stomach hurts," and does not elaborate any further. She reports some nausea without emesis. She notes that she has not taken her insulin today due to the pain. Patient was seen here yesterday with the same complaint. Denies SI. TRAVEL OUTSIDE OF THE [place] IN LAST 30 DAYS: No - Related Data Allergies/Adverse Reactions: metoclopramide HCl [From Reglan] Allergy (Unknown, Verified 01/08/20 12:34) Past Medical History - General Information source: Patient - Social History Smoking Status: Never Smoker Cigarette use (# per day): No Chew tobacco use (# tins/day): No Smoking Education Provided: No Frequency of alcohol use: None Drug Abuse: None Family History: Reviewed & Not Pertinent, DM, Hypertension Patient has suicidal ideation: No - Past Medical History Cardiac Medical History: Reports: Hx Hypercholesterolemia, Hx Hypertension Pulmonary Medical History: Neurological Medical History: Endocrine Medical History: Reports: Hx Diabetes Mellitus Type 2 Renal/ Medical History: Reports: Hx Renal Insufficiency GI Medical History: Reports: Hx Gastroesophageal Reflux Disease, Hx Hiatal Hernia Musculoskeletal Medical History: Reports Hx Arthritis Skin Medical History: Reports Hx Eczema Psychiatric Medical History: Reports: Hx Anxiety, Hx Bipolar Disorder, Hx Depression Infectious Medical History: Reports: Hx MRSA Past Surgical History: Reports: Hx Cholecystectomy - Immunizations Immunizations up to date: Yes Hx Diphtheria, Pertussis, Tetanus Vaccination: Yes - unknown Hx Pneumococcal Vaccination: 05/04/10 Review of Systems - Review of Systems Constitutional: No symptoms reported EENT: No symptoms reported Cardiovascular: No symptoms reported Respiratory: No symptoms reported Gastrointestinal: See HPI, Abdominal pain, Nausea. denies: Vomiting Genitourinary: No symptoms reported Female Genitourinary: No symptoms reported Musculoskeletal: No symptoms reported Skin: No symptoms reported Hematologic/Lymphatic: No symptoms reported Neurological/Psychological: See HPI. denies: Suicidal ideation -: Yes All other systems reviewed and negative Physical Exam - Vital signs Vitals: Temp Pulse Resp BP Pulse Ox 97.5 F 145 H 20 152/93 H 100 01/21/20 16:28 01/21/20 16:28 01/21/20 16:28 01/21/20 16:01/21/20 16:28 - General General appearance: Alert - Rocking and rolling in the bed - HEENT Head: Normocephalic, Atraumatic Eyes: Normal Extraocular movements intact: Yes Pupils: PERRL Mucous membranes: Dry - Respiratory Respiratory status: Tachypnea Chest status: Nontender Breath sounds: Normal Chest palpation: Normal - Cardiovascular Rhythm: Regular, Tachycardia Heart sounds: Normal auscultation Murmur: No Friction rub: No Gallop: None auscultated - Abdominal Inspection: Obese Distension: No distension Bowel sounds: Normal Tenderness: Tender - Diffusely tender, Guarding - voluntary. No: Rebound - or rigidity Organomegaly: No organomegaly - Back Back: Normal, Nontender - Extremities General upper extremity: Normal inspection General lower extremity: Normal inspection. No: Edema - Neurological Neuro grossly intact: Yes Orientation: AAOx4 [place] Coma Scale Eye Opening: Spontaneous [place] Coma Scale Verbal: Oriented [place]aina Coma Scale Motor: Obeys Commands Zaina Coma Scale Total: 15 - Psychological Associated symptoms: Restlessness, Other - Denies SI - Skin Skin Temperature: Warm Skin Moisture: Dry Skin Color: Normal Course - Re-evaluation Re-evalutation: 01/21/20 23:53 MDM Somewhat difficult 44 year old diabetic with known bipolar disorder and gastroparesis. She was seen here yesterday for nausea and dry heaving. She had a workup which was comprehensive and unremarkable and then returns here via EMS with tachycardia and nausea and dry heaving. After IVF here and analgesia and haldol she is improved. HR is 90's. She complains of urinary frequency and dysuria. - Vital Signs Vital signs: Temp Pulse Resp BP Pulse Ox 97.5 F 145 H 16 119/85 97 01/21/20 16:28 01/21/20 16:28 01/22/20 00:02 01/22/20 00:02 01/22/20 00:02 - Laboratory Result Diagrams: 01/21/20 17:10 01/21/20 17:10 Laboratory results interpreted by me: 01/21/20 01/21/20 01/21/20 17:10 17:10 18:11 WBC 13.3 H Hgb 11.9 L MCV 77 L MCH 25.0 L RDW 17.1 H Absolute Neuts (auto) 9.7 H Sodium 134.7 L Carbon Dioxide 20 L Glucose 342 H Calcium 10.4 H Total Protein 8.6 H Urine Glucose (UA) >=500 H Urine Ketones 20 H Ur Leukocyte Esterase SMALL H - EKG Interpretation by Me EKG shows normal: Sinus rhythm Rate: Tachycardia Rhythm: NSR - Sinus Tachy nl axis 149 BPM repolarization abnormality no st elevation or depression my interpretation. Discharge - Discharge Clinical Impression: Gastroparesis Abdominal pain Qualifiers: Abdominal location: epigastric Qualified Code(s): R10.13 - Epigastric pain Type 2 diabetes mellitus Qualifiers: Diabetes mellitus half-way insulin use: unspecified half-way insulin use status Diabetes mellitus complication status: with other specified complication Qualified Code(s): E11.69 - Type 2 diabetes mellitus with other specified complication Condition: Stable Disposition: HOME, SELF-CARE Instructions: Abdominal Pain ([facility]), Antinausea Medication ([facility]), Nausea or Vomiting, Nonspecific ([facility]) Additional Instructions: Rest, fluids, please return here for any problems or any concerns including but not limited to vomiting that will not stop or abdominal pain. Take your medic ine as directed. Start the antibiotics Saturday. Call Dr. Mcgrath today. Your medicine has been sent to [facility]. Referrals: GLEN MCGRATH PA-C [Primary Care Provider] - 01/22/20 I personally performed the services described in the documentation, reviewed and edited the documentation which was dictated to the scribe in my presence, and it accurately records my words and actions.
[2020-01-21 17:58] LABS: ABSOLUTE BASOPHILS # (AUTO) 0.1 10^3/uL (0.0-0.2); ABSOLUTE LYMPHOCYTES (AUTO) 2.7 10^3/uL (0.5-4.7); ABSOLUTE MONOCYTES (AUTO) 0.9 10^3/uL (0.1-1.4); ABSOLUTE NEUT (AUTO) 9.7 10^3/uL (1.7-8.2); BASOPHILS % (AUTO) 0.6 % (0-2); EOSINOPHILS % (AUTO) 0.1 % (0-6); HEMATOCRIT 36.7 % (36.0-47.0); HEMOGLOBIN 11.9 g/dL (12.0-15.5); LYMPHOCYTES % (AUTO) 19.9 % (13-45); MEAN CORPUSCULAR HGB CONC 32.5 g/dL (32.0-36.0); MEAN CORPUSCULAR VOLUME 77 fl (80-97); MONOCYTES % (AUTO) 6.6 % (3-13); PLATELET COUNT 376 10^3/uL (150-450); RED BLOOD COUNT 4.78 10^6/uL (3.72-5.28); RED CELL DISTRIBUTION WIDTH 17.1 % (11.5-14.0); SEGMENTED NEUTROPHILS % (AUTO) 72.8 % (42-78); TOTAL CELLS COUNTED % (AUTO) 100 %; WHITE BLOOD COUNT 13.3 10^3/uL (4.0-10.5)
[2020-01-21 18:12] LABS: ALBUMIN 4.8 g/dL (3.5-5.0); ALKALINE PHOSPHATASE 124 U/L (38-126); ANION GAP 16 (5-19); ASPARTATE AMINO TRANSFERASE 36 U/L (14-36); BILIRUBIN,DIRECT 0.4 mg/dL (0.0-0.4); BILIRUBIN,TOTAL 0.8 mg/dL (0.2-1.3); BLOOD UREA NITROGEN 15 mg/dL (7-20); CALCIUM 10.4 mg/dL (8.4-10.2); CARBON DIOXIDE 20 mmol/L (22-30); CHLORIDE 99 mmol/L (98-107); GLUCOSE 342 mg/dL (75-110); POTASSIUM 4.5 mmol/L (3.6-5.0); TOTAL PROTEIN 8.6 g/dL (6.3-8.2)
[2020-01-21] MEDS ORDERED: INSULIN REG, HUMAN 100 UNIT/ML 3 ML VIAL (PYX) IV ONE (18:26)
[2020-01-21 18:53] LABS: APPEARANCE,URINE SLIGHTLY-CLOUDY; BILIRUBIN,URINE NEGATIVE (NEGATIVE); COLOR,URINE STRAW; GLUCOSE, URINE >=500 mg/dL (NEGATIVE); KETONES,URINE 20 mg/dL (NEGATIVE); LEUKOCYTE ESTERASE,URINE SMALL (NEGATIVE); NITRITE,URINE NEGATIVE (NEGATIVE); PROTEIN,URINE NEGATIVE (NEGATIVE); URINE SPECIFIC GRAVITY 1.021; UROBILINOGEN,URINE NEGATIVE mg/dL (<2.0)
[2020-01-21 19:10] LABS: ADD MANUAL MICROSCOPIC YES; BACTERIA,URINE 2+ /HPF; RBC,URINE 0-1 /HPF
[2020-01-21] MEDS ORDERED: METOPROLOL TARTRATE PF/INJ 5 MG/5 ML SDV IV ONE ×2 (20:58→22:08)
[2020-01-21 21:17] LABS: VENOUS BLOOD BASE EXCESS -1.2 mmol/L; VENOUS BLOOD HCO3 23.5 mmol/L (20-32); VENOUS BLOOD PCO2 39.6 mmHg (35-63); VENOUS BLOOD PH 7.39 (7.30-7.42)
[2020-01-21] MEDS ORDERED: CEFTRIAXONE 1 GM/D5W RTU 1 GM/50 ML RTUPB IV ONE (22:25)
[2020-01-21] MEDS ORDERED: ONDANSETRON HCL INJ/PF 4 MG/2 ML SDV IV ONE (23:38)
[2020-01-21] MEDS ORDERED: HALOPERIDOL LACTATE INJ 5 MG/1 ML VIAL IV ONE (23:39)
[2020-01-22 00:38] VITALS: BP 132/92
--- NOTE | 2020-01-22 11:15 | EKG REPORT ---
SEVERITY:- ABNORMAL ECG - SINUS TACHYCARDIA ATRIAL PREMATURE COMPLEX BORDERLINE R WAVE PROGRESSION, ANTERIOR LEADS BORDERLINE T ABNORMALITIES, INFERIOR LEADS : Confirmed by: Buffy Guajardo MD 22-Jan-2020 11:14:46
== END 2020-01-22 00:54 | disposition home or self-care (01) ==
LOC: ER 16:17
DX: E11.43 Type 2 diabetes mellitus with diabetic autonomic (poly)neuropathy (principal); K31.84 Gastroparesis; E11.69 Type 2 diabetes mellitus with other specified complication; R10.13 Epigastric pain; R10.9 Unspecified abdominal pain; G89.29 Other chronic pain; R11.0 Nausea; I10 Essential (primary) hypertension; E78.5 Hyperlipidemia, unspecified; K21.9 Gastro-esophageal reflux disease without esophagitis; Z88.8 Allergy status to other drugs, medicaments and biological substances
CPT/HCPCS: 93005; 96376; 99284; 96372; 96361; 96375; 96365; 36415; 83690; 84703; 85025; 80053; 81001; 82803; 93010; J1200; J1630 ×2; J3490; J2270 ×2; J2060; C9113; A9270; J2405; J7030; J0696; J1815

== ENCOUNTER 2020-01-28 09:21 | Emergency (ER) | payer MEDICARE, MEDICAID ==
[2020-01-28] MEDS ORDERED: DIPHENHYDRAMINE HCL 50 MG/ML VIAL IV ONE (10:03)
[2020-01-28] MEDS ORDERED: HALOPERIDOL LACTATE INJ 5 MG/1 ML VIAL IM ONE (10:03)
--- NOTE | 2020-01-28 10:09 | ER Document Report ---
ED General - General Stated Complaint: ABDOMINAL PAIN Time Seen by Provider: 01/28/20 10:00 Primary Care Provider: GLEN MCGRATH PA-C [Primary Care Provider] - Follow up as needed Notes: 44-year-old female with innumerable ED visits for chronic recurrent abdominal pain known diagnosis of esophagitis, multiple negative imaging studies. Patient is a diabetic but has not had DKA lately. She says her blood sugar this morning was 180. She complains of upper abdominal pain severe but her history is difficult because she is writhing around on the gurney and not able or willing to give a complete history. She nods her head yes to nausea. No diarrhea. No further information available. A TRAVEL OUTSIDE OF THE [place] IN LAST 30 DAYS: No - Related Data Allergies/Adverse Reactions: metoclopramide HCl [From [employer]] Allergy (Unknown, Verified 01/28/20 10:35) Past Medical History - General Information source: Patient Cannot obtain history due to: Uncooperative - Social History Smoking Status: Unknown if Ever Smoked Family History: Reviewed & Not Pertinent, DM, Hypertension - Past Medical History Cardiac Medical History: Reports: Hx Hypercholesterolemia, Hx Hypertension Denies: Hx Atrial Fibrillation, Hx Coronary Artery Disease, Hx DVT, Hx Pulmonary Embolism Pulmonary Medical History: Denies: Hx Asthma, Hx COPD Neurological Medical History: Denies: Hx Seizures Endocrine Medical History: Reports: Hx Diabetes Mellitus Type 2. Denies: Hx Diabetes Mellitus Type 1, Hx Hyperthyroidism, Hx Hypothyroidism Renal/ Medical History: Reports: Hx Renal Insufficiency. Denies: Hx Peritoneal Dialysis GI Medical History: Reports: Hx Gastroesophageal Reflux Disease, Hx Hiatal Hernia. Denies: Hx Cirrhosis, Hx Crohn's Disease, Hx Hepatitis, Hx Ulcerative Colitis Musculoskeletal Medical History: Reports Hx Arthritis, Denies Hx Gout Skin Medical History: Reports Hx Eczema, Denies Hx Psoriasis Psychiatric Medical History: Reports: Hx Anxiety, Hx Bipolar Disorder, Hx Dep ression Infectious Medical History: Reports: Hx MRSA. Denies: Hx Hepatitis Past Surgical History: Reports: Hx Cholecystectomy - Immunizations Immunizations up to date: Yes Hx Diphtheria, Pertussis, Tetanus Vaccination: Yes - unknown Hx Pneumococcal Vaccination: 05/04/10 Review of Systems - Review of Systems Notes: REVIEW OF SYSTEMS Limited secondary to cooperation moaning holding empty vomit bag writhing in gurney PHYSICAL EXAMINATION General: No acute distress, well-nourished Head: Atraumatic, normocephalic ENT: Mouth normal, oropharynx moist, no exudates or tonsillar enlargement Eyes: Conjunctiva normal, pupils equal, lids normal Neck: No JVD, supple, no guarding CVS: Normal rate, regular rhythm, no murmurs Resp: No resp distress, equal and normal breath sounds bilaterally GI: Nondistended, soft, no tenderness to palpation, no rebound or guarding Ext: No deformities, no edema, normal range of motion in upper and lower ext Back: No CVA or midline TTP Skin: No rash, warm Lymphatic: No lymphadeopathy noted Neuro: Awake, alert. Face symmetric. GCS 15. Physical Exam - Vital signs Vitals: Temp Pulse Resp BP Pulse Ox 98.0 F 122 H 16 144/96 H 100 01/28/20 09:32 01/28/20 09:32 01/28/20 09:32 01/28/20 09:32 01/28/20 09:32 Course - Re-evaluation Re-evalutation: 01/28/20 10:17 Chronic recurrent abdominal pain highly unlikely to be DKA blood sugar was 180 only an hour or 2 ago. Suspect she probably had breakfast. She has minimal tenderness, and I reviewed her multiple negative ED work-ups in the past. She says she is not on any home medications. I suspect her pain is likely functional recurrent or secondary to gastritis or marijuana hyperemesis, or gastroparesis given her longstanding diabetic history. She is a very difficult IV stick, and from my notes it appears that she rarely gets relief from any medication. She is asking specifically for pain medicine specifically narcotics. We had a long discussion regarding why this is not the best course of action I offered her Haldol and Benadryl IM. 01/28/20 14:41 Patient is quite comfortable after receiving Haldol and Benadryl. She has an appointment with Angelo MERA in the next 2 to 3 weeks. I am going to prescribe her rectal Phenergan for her chronic recurrent abdominal pain and cyclic vomiting. I have discussed with the patient there likely diagnosis, aftercare plan, follow-up plans and my usual and customary return precautions. They brigitte balized understanding of this. - Vital Signs Vital signs: Temp Pulse Resp BP Pulse Ox 97.5 F 123 H 18 148/81 H 98 01/28/20 12:51 01/28/20 12:51 01/28/20 12:51 01/28/20 12:51 01/28/20 12:51 - Laboratory Laboratory results interpreted by me: 01/28/20 10:06 POC Glucose 299 H Discharge - Discharge Clinical Impression: Chronic abdominal pain Condition: Good Disposition: HOME, SELF-CARE Instructions: Abdominal Pain ([facility]) Prescriptions: Promethazine HCl [Phenergan 25 mg Tablet] 1 - 2 tab PO Q6H PRN #15 tablet PRN Reason: Referrals: GLEN MCGRATH PA-C [Primary Care Provider] - Follow up as needed
[2020-01-28 12:53] VITALS: BP 148/81
== END 2020-01-28 12:53 | disposition home or self-care (01) ==
LOC: ER 09:21
DX: R10.9 Unspecified abdominal pain (principal); G89.29 Other chronic pain; R11.0 Nausea; K20.9 Esophagitis, unspecified; E11.65 Type 2 diabetes mellitus with hyperglycemia; Z88.8 Allergy status to other drugs, medicaments and biological substances; I10 Essential (primary) hypertension
CPT/HCPCS: 99284; 96372; 82962; J1200; J1630

== ENCOUNTER 2020-01-29 04:42 | Emergency (ER) | payer MEDICARE, MEDICAID ==
[2020-01-29] MEDS ORDERED: DIPHENHYDRAMINE HCL 50 MG/ML VIAL IV ONE (05:23)
[2020-01-29] MEDS ORDERED: FAMOTIDINE INJ/PF 20 MG/2 ML SDV IV ONE (05:23)
[2020-01-29] MEDS ORDERED: HALOPERIDOL LACTATE INJ 5 MG/1 ML VIAL IM ONE (05:23)
[2020-01-29] MEDS ORDERED: LORAZEPAM INJ 2 MG/1 ML VIAL IV ONE (05:23)
--- NOTE | 2020-01-29 05:27 | ER Document Report ---
ED General - General Time Seen by Provider: 01/29/20 05:22 Primary Care Provider: GLEN MCGRATH PA-C [Primary Care Provider] - Follow up as needed Notes: Patient is a 44-year-old female that comes emergency department for chief complaint of 2 days of vomiting and mid upper abdominal pain. Patient states she is vomited over 10 times today, she states she cannot keep down her regular medications. Patient has a history of chronic abdominal pain and vomiting, previously thought to have gastroparesis although patient tells me she was told she does not have this. Patient also has a history of insulin-dependent diabetes and has had DKA in the past. She denies alcohol, recreational drugs, smoking. Remaining medical history includes hypertension and cholecystectomy. TRAVEL OUTSIDE OF THE [place] IN LAST 30 DAYS: No - Related Data Allergies/Adverse Reactions: metoclopramide HCl [From [employer]] Allergy (Unknown, Verified 01/28/20 10:35) Past Medical History - General Information source: Patient - Social History Smoking Status: Never Smoker Frequency of alcohol use: None Drug Abuse: None Lives with: Family Family History: Reviewed & Not Pertinent, DM, Hypertension - Past Medical History Cardiac Medical History: Reports: Hx Hypercholesterolemia, Hx Hypertension Denies: Hx Atrial Fibrillation, Hx Coronary Artery Disease, Hx DVT, Hx Pulmonary Embolism Pulmonary Medical History: Denies: Hx Asthma, Hx COPD Neurological Medical History: Denies: Hx Seizures Endocrine Medical History: Reports: Hx Diabetes Mellitus Type 2. Denies: Hx Diabetes Mellitus Type 1, Hx Hyperthyroidism, Hx Hypothyroidism Renal/ Medical History: Reports: Hx Renal Insufficiency. Denies: Hx Peritoneal Dialysis GI Medical History: Reports: Hx Gastroesophageal Reflux Disease, Hx Hiatal Hernia. Denies: Hx Cirrhosis, Hx Crohn's Disease, Hx Hepatitis, Hx Ulcerative Colitis Musculoskeletal Medical History: Reports Hx Arthritis, Denies Hx Gout Skin Medical History: Reports Hx Eczema, Denies Hx Psoriasis Psychiatric Medical History: Reports: Hx Anxiety, Hx Bipolar Disorder, Hx Depression Infectious Medical History: Reports: Hx MRSA. Denies: Hx Hepatitis Past Surgical History: Reports: Hx Cholecystectomy - Immunizations Immunizations up to date: Yes Hx Diphtheria, Pertussis, Tetanus Vaccination: Yes - unknown Hx Pneumococcal Vaccination: 05/04/10 Review of Systems - Review of Systems Constitutional: No symptoms reported EENT: No symptoms reported Cardiovascular: No symptoms reported Respiratory: No symptoms reported Gastrointestinal: See HPI Genitourinary: No symptoms reported Female Genitourinary: No symptoms reported Musculoskeletal: No symptoms reported Skin: No symptoms reported Hematologic/Lymphatic: No symptoms reported Neurological/Psychological: No symptoms reported Physical Exam - Vital signs Vitals: Resp Pulse Ox 32 H 100 01/29/20 05:42 01/29/20 05:42 - Notes Notes: GENERAL: Alert, cooperative, restless, agitated HEAD: Normocephalic, atraumatic. EYES: Pupils equal, round, and reactive to light. Extraocular movements intact. ENT: Oral mucosa very dry, tongue midline. Oropharynx unremarkable. Airway patent. NECK: Full range of motion. Supple. Trachea midline. No lymphadenopathy. LUNGS: Clear to auscultation bilaterally, no wheezes, rales, or rhonchi. No respiratory distress. Non-tender chest wall. HEART: Regular rate and rhythm. No murmur ABDOMEN: Generalized tenderness over the abdomen, nonspecific, no guarding. Bowel sounds present throughout. EXTREMITIES: Moves all 4 extremities spontaneously. No edema, normal radial and dorsalis pedis pulses bilaterally. No cyanosis. BACK: no cervical, thoracic, lumbar midline tenderness. No saddle anesthesia, normal distal neurovascular exam. Moves all extremities in full range of motion. NEUROLOGICAL: Alert and oriented x3. Normal speech. Cranial nerves II through XII grossly intact. Strength 5/5 in all extremities. PSYCH: Agitated, restless, difficulty holding still SKIN: Warm, dry, normal turgor. No rashes or lesions noted. Course - Re-evaluation Re-evalutation: Patient restless, agitated, tachycardic on my initial evaluation. I have seen patient previously multiple times with the same presentation. She has generalized all tenderness but no specific tenderness or guarding noted. Vital signs unremarkable except for tachycardia and hypertension, patient has a clonidine patch on and she reports she has not been able to take her lisinopril 10 mg, amlodipine 10 mg, and metoprolol tartrate 25 mg. She will be medicated for nausea first, treated with IV fluids, and then be given her blood pressure medications. CBC shows leukocytosis at 16,000, nonspecific given her repeated vomiting and nonspecific abdominal exam. Chemistry shows slight renal insufficiency, hyperglycemia at 310, however anion gap unremarkable, bicarbonate unremarkable, and on venous blood gas she is not acidotic. negative, lipase un remarkable. On reevaluation after medications patient is significantly improved, ready to attempt p.o., she will be reevaluated. Patient states she does feel much better, she states she has follow-up with gastroenterology in [place]. - Vital Signs Vital signs: Temp Pulse Resp BP Pulse Ox 98.5 F 32 H 189/75 H 91 L 01/29/20 06:01 01/29/20 06:01 01/29/20 06:01 01/29/20 06:01 - Laboratory Result Diagrams: 01/29/20 05:15 01/29/20 05:15 Laboratory results interpreted by me: 01/29/20 01/29/20 01/29/20 05:15 05:15 05:15 WBC 16.0 H Hgb 11.8 L MCV 77 L MCH 25.2 L RDW 18.0 H Absolute Neuts (auto) 12.3 H Absolute Monos (auto) 1.6 H VBG pH 7.49 H VBG pCO2 31.1 L Sodium 131.4 L Chloride 94 L BUN 21 H Creatinine 1.32 H Est GFR ( Amer) 53 L Est GFR (MDRD) Non-Af 44 L Glucose 310 H Calcium 11.4 H AST 45 H Total Protein 8.3 H - EKG Interpretation by Me Additional EKG results interpreted by me: EKG shows sinus tachycardia at a rate of 135, QTC of 432, normal axis, no T wave inversions or ST segment changes in consecutive leads. Discharge - Discharge Clinical Impression: Dehydration Vomiting Qualifiers: Vomiting type: unspecified Vomiting Intractability: non-intractable Nausea presence: with nausea Qualified Code(s): R11.2 - Nausea with vomiting, unspecified Abdominal pain Qualifiers: Abdominal location: generalized Qualified Code(s): R10.84 - Generalized abdominal pain Condition: Stable Disposition: HOME, SELF-CARE Additional Instructions: You have been evaluated and treated for abdominal pain, vomiting, dehydration. 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 Return if you worsen including severe worsening abdomi nal pain, fever, uncontrolled vomiting, or any other concerning or worsening symptoms. Prescriptions: Promethazine HCl [Phenergan 25 mg Tablet] 25 mg PO Q6H PRN #20 tablet PRN Reason: Ondansetron [Zofran Odt 4 mg Tablet] 1 - 2 tab PO Q4H PRN #15 tab.rapdis PRN Reason: For Nausea/Vomiting Referrals: GLEN MCGRATH PA-C [Primary Care Provider] - 02/01/20
[2020-01-29 05:38] LABS: ABSOLUTE LYMPHOCYTES (AUTO) 2.1 10^3/uL (0.5-4.7); ABSOLUTE MONOCYTES (AUTO) 1.6 10^3/uL (0.1-1.4); ABSOLUTE NEUT (AUTO) 12.3 10^3/uL (1.7-8.2); BASOPHILS % (AUTO) 0.3 % (0-2); EOSINOPHILS % (AUTO) 0.1 % (0-6); HEMATOCRIT 36.1 % (36.0-47.0); HEMOGLOBIN 11.8 g/dL (12.0-15.5); LYMPHOCYTES % (AUTO) 13.2 % (13-45); MEAN CORPUSCULAR HEMOGLOBIN 25.2 pg (27.0-33.4); MEAN CORPUSCULAR HGB CONC 32.7 g/dL (32.0-36.0); MEAN CORPUSCULAR VOLUME 77 fl (80-97); MONOCYTES % (AUTO) 9.7 % (3-13); PLATELET COUNT 329 10^3/uL (150-450); RED BLOOD COUNT 4.68 10^6/uL (3.72-5.28); SEGMENTED NEUTROPHILS % (AUTO) 76.7 % (42-78); TOTAL CELLS COUNTED % (AUTO) 100 %
[2020-01-29 05:46] LABS: VENOUS BLOOD BASE EXCESS 1.1 mmol/L; VENOUS BLOOD HCO3 23.4 mmol/L (20-32); VENOUS BLOOD PCO2 31.1 mmHg (35-63); VENOUS BLOOD PH 7.49 (7.30-7.42)
[2020-01-29] MEDS: NORMAL SALINE 1000 ML 1,000 ML IV PRN ×2 (05:58→07:05)
[2020-01-29 05:59] LABS: ALBUMIN 4.9 g/dL (3.5-5.0); ALKALINE PHOSPHATASE 125 U/L (38-126); ANION GAP 14 (5-19); ASPARTATE AMINO TRANSFERASE 45 U/L (14-36); BILIRUBIN,DIRECT 0.3 mg/dL (0.0-0.4); BILIRUBIN,TOTAL 0.7 mg/dL (0.2-1.3); BLOOD UREA NITROGEN 21 mg/dL (7-20); CALCIUM 11.4 mg/dL (8.4-10.2); CARBON DIOXIDE 23 mmol/L (22-30); CHLORIDE 94 mmol/L (98-107); GLUCOSE 310 mg/dL (75-110); POTASSIUM 4.2 mmol/L (3.6-5.0); TOTAL PROTEIN 8.3 g/dL (6.3-8.2)
[2020-01-29] MEDS ORDERED: LISINOPRIL 10 MG TABLET PO ONE (06:23)
[2020-01-29] MEDS ORDERED: AMLODIPINE BESYLATE 10 MG TABLET PO ONE (06:23)
[2020-01-29] MEDS ORDERED: METOPROLOL TARTRATE 25 MG TABLET PO ONE (06:23)
[2020-01-29] MEDS ORDERED: RINGERS SOLUTION,LACTATED 1,000 ML IV ONE (06:57)
[2020-01-29 09:21] VITALS: BP 130/75
--- NOTE | 2020-01-29 15:19 | EKG REPORT ---
SEVERITY:- ABNORMAL ECG - SINUS TACHYCARDIA NONSPECIFIC T ABNORMALITIES, INFERIOR LEADS POOR R WAVE PROGRESSION ANT PRECORDIAL LEADS.CONSIDER [facility]TERIOR [place] : Confirmed by: Eduardo Novak MD 29-Jan-2020 15:18:38
== END 2020-01-29 09:22 | disposition home or self-care (01) ==
LOC: ER 04:42
DX: R11.2 Nausea with vomiting, unspecified (principal); R10.84 Generalized abdominal pain; R10.817 Generalized abdominal tenderness; R45.1 Restlessness and agitation; E86.0 Dehydration; R00.0 Tachycardia, unspecified; N28.9 Disorder of kidney and ureter, unspecified; I10 Essential (primary) hypertension; D72.829 Elevated white blood cell count, unspecified; E11.65 Type 2 diabetes mellitus with hyperglycemia; Z79.899 Other long term (current) drug therapy; Z90.49 Acquired absence of other specified parts of digestive tract; Z87.19 Personal history of other diseases of the digestive system; Z88.8 Allergy status to other drugs, medicaments and biological substances
CPT/HCPCS: 93005; 99284; 96372; 96361; 96374; 96375; 36415; 83690; 84703; 85025; 80053; 82803; 93010; J1200; J1630; J2060; J7030; J7120; A9270 ×3; S0028

== ENCOUNTER 2020-02-03 04:14 | Emergency (ER) | payer MEDICARE, MEDICAID ==
[2020-02-03] MEDS ORDERED: PROCHLORPERAZINE EDISYLATE INJ 10 MG/2 ML VIAL IV ONE (06:29)
[2020-02-03] MEDS ORDERED: HALOPERIDOL LACTATE INJ 5 MG/1 ML VIAL IM ONE (06:30)
[2020-02-03] MEDS ORDERED: PANTOPRAZOLE SODIUM 40 MG VIAL IV ONE (06:30)
[2020-02-03] MEDS ORDERED: NORMAL SALINE 1000 ML 1,000 ML IV ONE (06:33)
--- NOTE | 2020-02-03 06:40 | ER Document Report ---
ED General - General Chief Complaint: Abdominal Pain Stated Complaint: ABDOMINAL PAIN Time Seen by Provider: 02/03/20 06:21 Primary Care Provider: JAMIL SALCIDO PA-C [Primary Care Provider] - Follow up as needed TRAVEL OUTSIDE OF THE [place] IN LAST 30 DAYS: No - HPI Notes: Chief complaint: Abdominal pain History of present illness: 44-year-old female followed by Jamil Salcido PA-C with history of diabetes mellitus, obesity, chronic abdominal pain, diabetic gastric paresis and bipolar disorder with many, many prior ED visits and inpatient hospitalizations for chronic recurrent abdominal pain presents once again today with same. Patient is crying and says that she woke up with pain this morning several hours ago. She denies fever, chills, dysuria or vomiting. States bowel movements are normal. She has had a previous cholecystectomy. Currently menstruating. - Related Data Allergies/Adverse Reactions: metoclopramide HCl [From Reglan] Allergy (Unknown, Verified 02/03/20 08:35) Home Medications: bp med, insulin, cymbalta Past Medical History - General Information source: Patient, [facility] Records - Social History Smoking Status: Never Smoker Frequency of alcohol use: None Lives with: Family Family History: Reviewed & Not Pertinent, DM, Hypertension - Past Medical History Cardiac Medical History: Reports: Hx Hypercholesterolemia, Hx Hypertension Denies: Hx Atrial Fibrillation, Hx Coronary Artery Disease, Hx DVT, Hx Pulmonary Embolism Pulmonary Medical History: Denies: Hx Asthma, Hx COPD Neurological Medical History: Denies: Hx Seizures Endocrine Medical History: Reports: Hx Diabetes Mellitus Type 2. Denies: Hx Diabetes Mellitus Type 1, Hx Hyperthyroidism, Hx Hypothyroidism Renal/ Medical History: Reports: Hx Renal Insufficiency. Denies: Hx Peritoneal Dialysis GI Medical History: Reports: Hx Gastroesophageal Reflux Disease, Hx Hiatal Hernia. Denies: Hx Cirrhosis, Hx Crohn's Disease, Hx Hepatitis, Hx Ulcerative Colitis Musculoskeletal Medical History: Reports Hx Arthritis, Denies Hx Gout Skin Medical History: Reports Hx Eczema, Denies Hx Psoriasis Psychiatric Medical History: Reports: Hx Anxiety, Hx Bipolar Disorder, Hx Depression Infectious Medical History: Reports: Hx MRSA. Denies: Hx Hepatitis Past Surgical History: Reports: Hx Cholecystectomy - Immunizations Immunizations up to date: Yes Hx Diphtheria, Pertussis, Tetanus Vaccination: Yes - unknown Hx Pneumococcal Vaccination: 05/04/10 Review of Systems - Review of Systems Notes: General: Constitutional: Negative for fever. HENT: Negative for sore throat. Eyes: Negative for visual changes. Cardiovascular: Negative for chest pain. Respiratory: Negative for shortness of breath. Gastrointestinal: As per HPI. Genitourinary: As per HPI. Musculoskeletal: Negative for back pain. Skin: Negative for rash. Neurological: Negative for headaches, weakness or numbness. 10 point ROS negative except as marked above and in HPI. Physical Exam - Vital signs Vitals: Temp Pulse Resp BP Pulse Ox 98.0 F 141 H 16 155/93 H 100 02/03/20 04:24 02/03/20 04:24 02/03/20 04:24 02/03/20 04:24 02/03/20 04:24 - Notes Notes: GENERAL: Obese middle-aged female who appears restless rocking back and forth in bed and crying and she is somewhat hysterical. SKIN: Good turgor no rashes. HEAD: Normocephalic atraumatic. EYES: PERRLA. EOMI. Conjunctivae and sclerae clear. EARS: CANALS AND TMS CLEAR. NOSE: CLEAR. MOUTH: Moist mucosa. Good dentition. No stridor or edema. No drooling. NECK: Supple. No masses or thyromegaly. No adenopathy. Carotids 2+ without bruits. No JVD. BACK: Symmetrical without tenderness. CHEST: Respirations unlabored. Breath sounds clear and symmetrical. HEART: Regular rhythm. No murmur gallop or rub. ABDOMEN: Obese. Mild epigastric tenderness. Soft without masses, organomegaly or rebound. Bowel sounds normally active. No bruits. GENITALIA: Deferred. EXTREMITIES: No edema. No calf tenderness. Cap refill less than 1.5 seconds. Dorsalis pedis and posterior tibial pulses 3+ and symmetrical. NEUROLOGICAL: GCS 15. Alert and oriented x3. Normal gait. Fluent speech. Cranial nerves II through XII intact. Sensorimotor and cerebellar normal. Normal tone. PSYCHIATRIC: Crying hysterically. Course - Re-evaluation Re-evalutation: 02/03/20 10:40 Patient presented again today tachycardic, anxious crying continuously complaining of severe abdominal pain. She was afebrile and her labs were relatively unremarkable. Noncontrast CT abdomen pelvis unremarkable. Patient has blood in her urine but she is currently menstruating. Patient ultimately got some Haldol IM. She is much more calm after this. She indicates that she started Cymbalta about a week ago for treatment of her bipolar disorder. I think this is likely to be a primarily behavioral issue at this time. I have cleared her medically and will ask behavioral health services to consult regarding medication recommendations and appropriate follow-up. 02/03/20 10:43 02/03/20 14:41 Behavioral service had no recommendation for changes in psychotropic meds. Patient is discharged and is to follow-up with outpatient psychiatry support program as previously scheduled. She can also follow-up with her PMD. Findings, clinical impression and plan of treatment have been discussed with patient/family. Understanding of current findings and recommendations has been acknowledged by them and there is agreement regarding disposition and follow-up. - Vital Signs Vital signs: Temp Pulse Resp BP Pulse Ox 98.0 F 127 H 20 164/92 H 100 02/03/20 04:24 02/03/20 14:55 02/03/20 14:55 02/03/20 14:55 02/03/20 14:55 - Laboratory Result Diagrams: 02/03/20 07:00 02/03/20 07:00 Laboratory results interpreted by me: 01/29/20 02/03/20 02/03/20 04:52 07:00 07:00 WBC 15.4 H MCV 77 L MCH 25.7 L RDW 17.9 H Absolute Neuts (auto) 11.9 H Sodium 132.3 L Carbon Dioxide 21 L Glucose 288 H POC Glucose 300 H Calcium 10.9 H Urine Protein Urine Glucose (UA) Urine Ketones Urine Blood Leukocyte Esterase Rfl 02/03/20 02/03/20 08:16 08:31 WBC MCV MCH RDW Absolute Neuts (auto) Sodium Carbon Dioxide Glucose POC Glucose 253 H Calcium Urine Protein 100 H Urine Glucose (UA) >=500 H Urine Ketones 20 H Urine Blood LARGE H Leukocyte Esterase Rfl MODERATE H - EKG Interpretation by Me Additional EKG results interpreted by me: 02/03/20 08:32 Twelve-lead EKG from 0730 hrs. reviewed contemporaneously by me. Indication for study: Tachycardia. Sinus tachycardia. Rate 135. Intervals normal. No acute ST/T wave changes. Comparison with prior tracing of 01/29/2020 shows no significant interval change. Interpretation: Sinus tachycardia Discharge - Discharge Clinical Impression: Chronic/recurrent abdominal pain, Bipolar disorder Disposition: HOME, SELF-CARE Additional Instructions: Remain on your current medications. Follow-up with your primary care provider tomorrow. Referrals: JAMIL SALCIDO PA-C [Primary Care Provider] - Follow up as needed
[2020-02-03 07:22] LABS: ABSOLUTE BASOPHILS # (AUTO) 0.1 10^3/uL (0.0-0.2); ABSOLUTE LYMPHOCYTES (AUTO) 2.5 10^3/uL (0.5-4.7); ABSOLUTE MONOCYTES (AUTO) 0.9 10^3/uL (0.1-1.4); ABSOLUTE NEUT (AUTO) 11.9 10^3/uL (1.7-8.2); BASOPHILS % (AUTO) 0.7 % (0-2); EOSINOPHILS % (AUTO) 0.2 % (0-6); LYMPHOCYTES % (AUTO) 16.3 % (13-45); MEAN CORPUSCULAR HEMOGLOBIN 25.7 pg (27.0-33.4); MEAN CORPUSCULAR HGB CONC 33.2 g/dL (32.0-36.0); MEAN CORPUSCULAR VOLUME 77 fl (80-97); MONOCYTES % (AUTO) 5.8 % (3-13); PLATELET COUNT 379 10^3/uL (150-450); RED BLOOD COUNT 4.66 10^6/uL (3.72-5.28); RED CELL DISTRIBUTION WIDTH 17.9 % (11.5-14.0); TOTAL CELLS COUNTED % (AUTO) 100 %; WHITE BLOOD COUNT 15.4 10^3/uL (4.0-10.5)
[2020-02-03 07:35] LABS: ALBUMIN 4.8 g/dL (3.5-5.0); ALKALINE PHOSPHATASE 119 U/L (38-126); ANION GAP 12 (5-19); ASPARTATE AMINO TRANSFERASE 27 U/L (14-36); BILIRUBIN,DIRECT 0.2 mg/dL (0.0-0.4); BILIRUBIN,TOTAL 0.7 mg/dL (0.2-1.3); BLOOD UREA NITROGEN 16 mg/dL (7-20); CALCIUM 10.9 mg/dL (8.4-10.2); CARBON DIOXIDE 21 mmol/L (22-30); CHLORIDE 99 mmol/L (98-107); GLUCOSE 288 mg/dL (75-110); POTASSIUM 4.8 mmol/L (3.6-5.0); TOTAL PROTEIN 8.2 g/dL (6.3-8.2)
[2020-02-03 07:36] LABS: ALCOHOL < 10 mg/dL (NONE DETECTED)
[2020-02-03 08:14] LABS: VENOUS BLOOD BASE EXCESS -2.2 mmol/L; VENOUS BLOOD HCO3 22.6 mmol/L (20-32); VENOUS BLOOD PCO2 38.7 mmHg (35-63); VENOUS BLOOD PH 7.38 (7.30-7.42)
--- NOTE | 2020-02-03 08:44 | RADIOLOGY REPORT (SQ) ---
EXAM DESCRIPTION: CT ABD/PELVIS NO ORAL OR IV IMAGES COMPLETED DATE/TIME: 02/03/2020 8:17 am REASON FOR STUDY: abd. pain COMPARISON: CT of the abdomen and pelvis without contrast from 06/19/2019. TECHNIQUE: CT scan of the abdomen and pelvis performed without intravenous or oral contrast. Images reviewed with lung, soft tissue, and bone windows. Reconstructed coronal and sagittal MPR images revi ewed. All images stored on PACS. All CT scanners at this facility use dose modulation, iterative reconstruction, and/or weight based d osing when appropriate to reduce radiation dose to as low as reasonably achievable (ALARA). [facility]: Dose Right [facility]: CareDose [facility]: Dose Right [facility]: Teradose 4D [facility]: [employer] RADIATION DOSE: CT Rad equipment meets quality standard of care and radiation dose reduction techniq ues were employed. CTDIvol: 10.0 mGy. DLP: 540 mGy-cm. LIMITATIONS: None. FINDINGS: LOWER CHEST: No acute findings. NON-CONTRASTED LIVER, SPLEEN, ADRENALS: Evaluation is limited due to the absence of intravenous contr ast. There is no evidence hepatic steatosis. The spleen is normal in size. The mild diffuse enlarg ement of the left adrenal gland is unchanged. PANCREAS: No acute gross abnormality of the pancreas. GALLBLADDER: The gallbladder is surgically absent. RIGHT KIDNEY AND URETER: Evaluation is limited due to the absence of intravenous contrast. There is no hydronephrosis, nephrolithiasis, hydroureter or ureterolithiasis. LEFT KIDNEY AND URETER: Evaluation is limited due to the absence of intravenous contrast. There is n o hydronephrosis, nephrolithiasis, hydroureter or ureterolithiasis. AORTA AND RETROPERITONEUM: No aneurysm of the abdominal aorta. There are phleboliths along the cours e of the gonadal veins. There is no retroperitoneal adenopathy, hemorrhage or mass. BOWEL AND PERITONEAL CAVITY: Probable hiatal hernia. There is no bowel obstruction, bowel wall thick ening or pericolonic/ perienteric inflammation. There is no mesenteric adenopathy, free intraperiton eal fluid or mesenteric/ omental inflammation. APPENDIX: Normal. PELVIS, BLADDER, AND ABDOMINAL WALL:The urinary bladder is distended and the bladder dome approaches the umbilicus. There is no abnormality of the uterus or adnexa that is apparent on CT. There is no abdominal wall mass or hernia. BONES: No acute findings. OTHER: No other finding. IMPRESSION: The urinary bladder is distended in the bladder dome approaches the emboli kiss. Correl ate for urinary retention. There is urinary bladder calculus, hydronephrosis, nephrolithiasis, hydro ureter or ureterolithiasis. There is COMMENT: Quality ID # [id number]: Final reports with documentation of one or more dose reduction techniques (e.g., Automated exposure control, adjustment of the mA and/or kV according to patient size, use of iterative reconstruction technique) TECHNICAL DOCUMENTATION: JOB ID: [id number] 2010 [employer]- All Rights Reserved Reading location - IP/workstation name: [email or web address]
[2020-02-03 08:54] LABS: APPEARANCE,URINE CLOUDY; BILIRUBIN,URINE NEGATIVE (NEGATIVE); COLOR,URINE RED; GLUCOSE, URINE >=500 mg/dL (NEGATIVE); KETONES,URINE 20 mg/dL (NEGATIVE); PROTEIN,URINE 100 mg/dL (NEGATIVE); URINE SPECIFIC GRAVITY 1.021; UROBILINOGEN,URINE NEGATIVE mg/dL (<2.0)
[2020-02-03 09:20] LABS: URINE AMPHETAMINES SCREEN NEGATIVE; URINE BARBITURATES SCREEN NEGATIVE; URINE BENZODIAZEPINES SCREEN NEGATIVE; URINE COCAINE SCREEN NEGATIVE; URINE MARIJUANA (THC) SCREEN NEGATIVE; URINE METHADONE SCREEN NEGATIVE; URINE PHENCYCLIDINE SCREEN NEGATIVE
--- NOTE | 2020-02-03 09:35 | EKG REPORT ---
SEVERITY:- ABNORMAL ECG - SINUS TACHYCARDIA ATRIAL PREMATURE COMPLEX PROBABLE LEFT ATRIAL ABNORMALITY BORDERLINE R WAVE PROGRESSION, ANTERIOR LEADS NONSPECIFIC T ABNORMALITIES, INFERIOR LEADS : Confirmed by: Russ Block MD 03-Feb-2020 09:34:06
[2020-02-03] MEDS ORDERED: LORAZEPAM 1 MG TABLET PO ONE (10:37)
--- NOTE | 2020-02-03 13:18 | PSYCHOLOGICAL NOTE ---
Psych Note - Psych Note Date seen by psych provider: 02/03/20 Time seen by psych provider: 12:15 Psych Note: Reason for Consult: Possible medication recommendations Patient is a 44-year-old female who was admitted to hospital for medical concerns. Behavioral health consult was placed to due patient's frequent [facility] ED visits and concerns for her initial erratic presentation. Patient is known to behavioral health team. Patient discloses that she has been taking her medication as directed. Patient receives medication management with [facility]. She continue to report that she does have therapy scheduled for the first. She denies any thoughts of wanting to harm herself or others. Patient denies any current concerns other than medical. Patient is alert and oriented to person, place, time and circumstance. Mood is normal with congruent affect. Patient denies suicidal and homicidal ideations. Delusions are absent and behavior is congruent with an intact reality based presentation (i.e., organized and linear through processes). There is no observed behavior that suggests patient is responding to internal stimuli. Patient is able to engage in organized, rational thought processes. Patient is able to express needs and wants in a logical manner. Patient denies current auditory and visual hallucinations. Eye contact is poor and patient does refuse to open her eyes. Conversational speech is within normal rate, tone, and prosody. Intellectual ability appears to be within average range. Attention and concentration are good. Insight, judgment and impulse control are historically poor. Clinical presentation: Baseline; personality disorder unspecified Impression/Plan: Patient is cleared from acute psychiatric services. This patient is well known to clinician and department. Patient frequently presents to [facility] ED with medical complaints. Patient denies suicidal and homicidal ideations. There is no observed behavior that suggests patient is responding to internal stimuli. Patient engaged in organized, rational, linear thought processes and was able to express needs and wants in a logical manner. Review of the [place] controlled substance database indicates frequent prescriptions by various providers for opiates and benzodiazepines. Plan is for patient to follow up with her mental health provider, [facility]. She reports she will be starting therapy 02/25/2020; patient has current medication management. Dr. Downs was consulted on the care and management of this patient; attending physician is in agreement with recommendations and disposition.
[2020-02-03 14:57] VITALS: BP 164/92
== END 2020-02-03 14:56 | disposition home or self-care (01) ==
LOC: ER 04:14
DX: R10.9 Unspecified abdominal pain (principal); G89.29 Other chronic pain; F31.9 Bipolar disorder, unspecified; E11.9 Type 2 diabetes mellitus without complications; E66.9 Obesity, unspecified; Z88.8 Allergy status to other drugs, medicaments and biological substances; Z79.899 Other long term (current) drug therapy; Z79.4 Long term (current) use of insulin; I10 Essential (primary) hypertension
CPT/HCPCS: 93005; 99285; 96372; 96361; 96374; 96375; 36415; 82962; 80307 ×2; 83605; 83690; 83735; 84703; 85025; 80053; 81001; 82803; 74176; 93010; J1630; C9113; A9270; J0780; J7030

== ENCOUNTER 2020-04-02 08:03 | Emergency (ER) | payer MEDICARE, MEDICAID ==
--- NOTE | 2020-04-02 08:48 | ER Document Report ---
ED General - General Chief Complaint: Facial Swelling Stated Complaint: EYE SWELLING Time Seen by Provider: 04/02/20 08:48 Primary Care Provider: GLEN MCGRATH PA-C [Primary Care Provider] - Follow up as needed TRAVEL OUTSIDE OF THE [place] IN LAST 30 DAYS: No - HPI Notes: 45-year-old female with a history of hypertension, insulin-dependent type 2 diabetes, GERD presents emergency room today for complaints of left eye swelling that started last night. Patient states that she had a pimple above her left eyebrow that she was picking at and she noticed that her eye became prog ressively swollen last night. Denies any blurred vision double vision loss of vision. Is not tried any [id number] medications. Denies any new medications foods or travel. Denies any trauma to her eye. Denies any itching, exudates from her eye. Patient does not wear contacts. Eating and drinking without any issues. Denies any fevers or chills, chest pain, shortness of breath, nausea, vomiting, diarrhea, abdominal pain, numbness or tingling down bilateral arms or legs, facial numbness, bowel or bladder dysfunction, no saddle anesthesia. Patient reports she just started her menstrual cycle today. - Related Data Allergies/Adverse Reactions: metoclopramide HCl [From [facility]] Allergy (Unknown, Verified 04/02/20 08:10) Home Medications: bp. insulin. cymbalta Past Medical History - General Information source: Patient - Social History Smoking Status: Never Smoker Chew tobacco use (# tins/day): No Frequency of alcohol use: None Drug Abuse: None Family History: Reviewed & Not Pertinent, DM, Hypertension Patient has homicidal ideation: No - Past Medical History Cardiac Medical History: Reports: Hx Hypercholesterolemia, Hx Hypertension Denies: Hx Atrial Fibrillation, Hx Coronary Artery Disease, Hx DVT, Hx Pulmonary Embolism Pulmonary Medical History: Denies: Hx Asthma, Hx COPD Neurological Medical History: Denies: Hx Seizures Endocrine Medical History: Reports: Hx Diabetes Mellitus Type 2. Denies: Hx Diabetes Mellitus Type 1, Hx Hyperthyroidism, Hx Hypothyroidism Renal/ Medical History: Reports: Hx Renal Insufficiency. Denies: Hx Peritoneal Dialysis GI Medical History: Reports: Hx Gastroesophageal Reflux Disease, Hx Hiatal Hernia. Denies: Hx Cirrhosis, Hx Crohn's Disease, Hx Hepatitis, Hx Ulcerative Colitis Musculoskeletal Medical History: Reports Hx Arthritis, Denies Hx Gout Skin Medical History: Reports Hx Eczema, Denies Hx Psoriasis Psychiatric Medical History: Reports: Hx Anxiety, Hx Bipolar Disorder, Hx Depres linda Infectious Medical History: Reports: Hx MRSA. Denies: Hx Hepatitis Past Surgical History: Reports: Hx Cholecystectomy - Immunizations Immunizations up to date: Yes Hx Diphtheria, Pertussis, Tetanus Vaccination: Yes - unknown Hx Pneumococcal Vaccination: 05/04/10 Review of Systems - Review of Systems Constitutional: No symptoms reported EENT: See HPI Cardiovascular: No symptoms reported Respiratory: No symptoms reported Gastrointestinal: No symptoms reported Genitourinary: No symptoms reported Female Genitourinary: No symptoms reported Musculoskeletal: No symptoms reported Skin: No symptoms reported Hematologic/Lymphatic: No symptoms reported Neurological/Psychological: No symptoms reported Physical Exam - Vital signs Vitals: Temp 98.3 F 04/02/20 08:10 - Notes Notes: MEDICATIONS: I agree with the patient medications as charted by the RN. ALLERGIES: I agree with the allergies as charted by the RN. PAST MEDICAL HISTORY/PAST SURGICAL HISTORY: Reviewed and agree as charted by RN. SOCIAL HISTORY: Reviewed and agree as charted by RN. FAMILY HISTORY: No significant familial comorbid conditions directly related to patient complaint EXAM: Reviewed vital signs as charted by RN. PHYSICAL EXAMINATION: reviewed vital signs by RN GENERAL: Well-appearing, well-nourished and in no acute distress. HEAD: Atraumatic, normocephalic. EYES: Pupils equal round and reactive to light, extraocular movements intact, conjunctiva are normal bilaterally. Left periorbital edema. No tenderness on palpation of bilateral orbital bones. Surrounding erythema induration warmth to touch. ENT: Nares patent, oropharynx clear without exudates. Moist mucous membranes. No septal hematoma bilaterally NECK: Normal range of motion, supple without lymphadenopathy LUNGS: Breath sounds clear to auscultation bilaterally and equal. No wheezes rales or rhonchi. HEART: Regular rate and rhythm without murmurs ABDOMEN: Soft, nontender, nondistended abdomen. No guarding, no rebound. No masses appreciated. Female : deferred Musculoskeletal: Normal range of motion, no pitting or edema. No cyanosis. NEUROLOGICAL: Cranial nerves grossly intact. Normal speech, normal gait. Normal sensory, motor exams PSYCH: Normal mood, normal affect. SKIN: Warm, Dry, normal turgor, no rashes or lesions noted. Noted 0.5 x 0.5 pustule with surrounding induration approximately 2 cm annular without any erythema. Course - Re-evaluation Re-evalutation: 04/02/20 13:07 Afebrile vital stable no distress. Nurses notes reviewed. CBC negative for leukocytosis or anemia, CMP negative for hepatic or renal dysfunction, no electrolyte disturbances. CT face with contrast shows marked soft tissue swelling of the left orbital, no abscess, abnormality or fracture noted. patient received 1 g Rocephin, will send patient home with a prescription for clindamycin 300 mg every 6 hours #28, a prescription of prednisone with the understanding also following up with artificial leather calender operator within the next 24 to [address] Diaz Strickland at 1230 regarding pertinent laboratory diagnostic and clinical findings, he did agree with plan of care. After pe rforming a Medical Screening Examination, I estimate there is LOW risk for a RETAINED CORNEAL or LID FOREIGN BODY, DEEP SPACE INFECTION (e.g., ORBITAL CELLULITIS OR ABSCESS), ACUTE GLAUCOMA, PENETRATING GLOBE INJURY, RETINAL DETACHMENT, or MENINGITIS thus I consider the discharge disposition reasonable. I have reevaluated this patient multiple times and no significant life threatening changes are noted. Also, there is no evidence or peritonitis, sepsis, or toxicity. The patient and I have discussed the diagnosis and risks, and we agree with discharging home with outpatient follow-up with the understanding that symptoms and presentations can change. We also discussed returning to the Emergency Department immediately if new or worsening symptoms occur. We have discussed the symptoms which are most concerning (e.g., changing or worsening pain, vision changes, neck stiffness or fever) that necessitate immediate return. - Vital Signs Vital signs: Temp Pulse Resp BP Pulse Ox 98.3 F 04/02/20 08:10 - Laboratory Result Diagrams: 04/02/20 10:23 04/02/20 10:23 Laboratory results interpreted by me: 04/02/20 04/02/20 10:23 10:23 MCV 78 L MCH 26.2 L RDW 16.6 H Sodium 136.7 L Glucose 275 H Alkaline Phosphatase 133 H Discharge - Discharge Clinical Impression: Periorbital edema of left eye Condition: Stable Disposition: HOME, SELF-CARE Additional Instructions: Take antibiotics as directed, take [id number] Benadryl as needed. Apply warm compress to site 20 minutes on 20 minutes off several times a day over your eye. Please do not pick after pimple that is over your eye please follow-up with artificial leather calender operator within the next 24 to 48 hours. You can take Tylenol and ibuprofen for pain control please return to the emergency room if you have any worsening symptoms. Return immediately for any new or worsening symptoms. Follow up with primary care provider, call tomorrow to make followup appointment. Prescriptions: Clindamycin HCl 300 mg PO Q6H #28 capsule Prednisone [Deltasone 20 mg Tablet] 3 tab PO DAILY 5 Days #15 tablet Referrals: GLEN MCGRATH PA-C [Primary Care Provider] - Follow up as needed RENEE WRAY DO [ACTIVE STAFF] - Follow up as needed (follow up within 24- 48 hours. )
--- NOTE | 2020-04-02 09:52 | RADIOLOGY REPORT (SQ) ---
EXAM DESCRIPTION: CT FACIAL AREA WITHOUT IMAGES COMPLETED DATE/TIME: 04/02/2020 9:23 am REASON FOR STUDY: Left eye periorbital swelling, popped zit x2d ago COMPARISON: None. TECHNIQUE: Noncontrasted images through the facial bones and orbits windowed for bone and soft tissu e. Additional coronal and sagittal reconstructed images reviewed. All images stored on PACS. All CT scanners at this facility use dose modulation, iterative reconstruction, and/or weight based d osing when appropriate to reduce radiation dose to as low as reasonably achievable (ALARA). [facility]: Dose Right [facility]: CareDose [facility]: Dose Right [facility]: Teradose 4D [facility]: Smart [employer] RADIATION DOSE: CT Rad equipment meets quality standard of care and radiation dose reduction techniq ues were employed. CTDIvol: 30.4 mGy. DLP: 595 mGy-cm. mGy. LIMITATIONS: None. FINDINGS: FACIAL BONES: No fracture or bone lesion. ORBITS: No fracture. No intraconal swelling. Optic nerve appears intact. There is marked soft tiss ue swelling over the left frontal bone and left eyelid. No identified discrete abscess. PARANASAL SINUSES: Clear. No significant mucosal thickening, mass or fluid. No nasal polyps. Maxill clementina sinus outlets are patent. SOFT TISSUES: Soft tissue swelling over left orbit INFERIOR BRAIN: Limited view. No acute findings. OTHER: No other significant finding. IMPRESSION: No intraconal abnormality on the left. No fracture. Marked soft tissue swelling left orbit, lid, final region on the left. TECHNICAL DOCUMENTATION: JOB ID: [id number] Quality ID # [id number]: Final reports with documentation of one or more dose reduction techniques (e.g., Au tomated exposure control, adjustment of the mA and/or kV according to patient size, use of iterative reconstruction technique) 2010 [employer]- All Rights Reserved Reading location - IP/workstation name: [email or web address]
[2020-04-02 10:50] LABS: ABSOLUTE BASOPHILS # (AUTO) 0.1 10^3/uL (0.0-0.2); ABSOLUTE EOSINOPHILS # (AUTO) 0.2 10^3/uL (0.0-0.6); ABSOLUTE LYMPHOCYTES (AUTO) 2.1 10^3/uL (0.5-4.7); ABSOLUTE MONOCYTES (AUTO) 0.8 10^3/uL (0.1-1.4); ABSOLUTE NEUT (AUTO) 7.1 10^3/uL (1.7-8.2); BASOPHILS % (AUTO) 0.6 % (0-2); EOSINOPHILS % (AUTO) 1.9 % (0-6); HEMATOCRIT 36.3 % (36.0-47.0); HEMOGLOBIN 12.2 g/dL (12.0-15.5); LYMPHOCYTES % (AUTO) 20.1 % (13-45); MEAN CORPUSCULAR HEMOGLOBIN 26.2 pg (27.0-33.4); MEAN CORPUSCULAR HGB CONC 33.6 g/dL (32.0-36.0); MEAN CORPUSCULAR VOLUME 78 fl (80-97); PLATELET COUNT 280 10^3/uL (150-450); RED BLOOD COUNT 4.64 10^6/uL (3.72-5.28); RED CELL DISTRIBUTION WIDTH 16.6 % (11.5-14.0); SEGMENTED NEUTROPHILS % (AUTO) 69.4 % (42-78); TOTAL CELLS COUNTED % (AUTO) 100 %; WHITE BLOOD COUNT 10.3 10^3/uL (4.0-10.5)
[2020-04-02 10:59] LABS: ALBUMIN 4.4 g/dL (3.5-5.0); ALKALINE PHOSPHATASE 133 U/L (38-126); ANION GAP 11 (5-19); ASPARTATE AMINO TRANSFERASE 20 U/L (14-36); BILIRUBIN,DIRECT 0.1 mg/dL (0.0-0.4); BILIRUBIN,TOTAL 0.4 mg/dL (0.2-1.3); BLOOD UREA NITROGEN 11 mg/dL (7-20); CALCIUM 10.1 mg/dL (8.4-10.2); CARBON DIOXIDE 25 mmol/L (22-30); CHLORIDE 101 mmol/L (98-107); GLUCOSE 275 mg/dL (75-110); POTASSIUM 4.8 mmol/L (3.6-5.0); TOTAL PROTEIN 8.2 g/dL (6.3-8.2)
[2020-04-02] MEDS ORDERED: CEFTRIAXONE 1 GM/D5W RTU 1 GM/50 ML RTUPB IV ONE (12:08)
[2020-04-02] MEDS ORDERED: DIPHENHYDRAMINE HCL 50 MG/ML VIAL IV ONE (12:14)
[2020-04-02] MEDS ORDERED: DEXAMETHASONE SOD PHOSPHATE INJ 4 MG/1 ML VIAL IV ONE (12:15)
[2020-04-02 13:57] VITALS: BP 166/101
== END 2020-04-02 13:57 | disposition home or self-care (01) ==
LOC: ER 08:03
DX: H05.222 Edema of left orbit (principal); I10 Essential (primary) hypertension; E11.9 Type 2 diabetes mellitus without complications; K21.9 Gastro-esophageal reflux disease without esophagitis; Z88.8 Allergy status to other drugs, medicaments and biological substances; Z79.4 Long term (current) use of insulin; Z79.899 Other long term (current) drug therapy
CPT/HCPCS: 99285; 96375; 96365; 36415; 87040; 85025; 80053; 70486; J1100; J1200; J0696

== ENCOUNTER 2020-04-03 21:35 | Emergency (ER) | payer MEDICARE, MEDICAID ==
[2020-04-03 22:18] LABS: HEMATOCRIT 34.5 % (36.0-47.0); HEMOGLOBIN 11.3 g/dL (12.0-15.5); MEAN CORPUSCULAR HEMOGLOBIN 25.7 pg (27.0-33.4); MEAN CORPUSCULAR HGB CONC 32.6 g/dL (32.0-36.0); MEAN CORPUSCULAR VOLUME 79 fl (80-97); PLATELET COUNT 311 10^3/uL (150-450); RED BLOOD COUNT 4.39 10^6/uL (3.72-5.28); RED CELL DISTRIBUTION WIDTH 16.5 % (11.5-14.0)
[2020-04-03 22:21] LABS: ALBUMIN 4.9 g/dL (3.5-5.0); ALKALINE PHOSPHATASE 144 U/L (38-126); ANION GAP 17 (5-19); ASPARTATE AMINO TRANSFERASE 91 U/L (14-36); BILIRUBIN,DIRECT 0.3 mg/dL (0.0-0.4); BILIRUBIN,TOTAL 0.8 mg/dL (0.2-1.3); BLOOD UREA NITROGEN 27 mg/dL (7-20); CALCIUM 10.3 mg/dL (8.4-10.2); CARBON DIOXIDE 21 mmol/L (22-30); CHLORIDE 99 mmol/L (98-107); GLUCOSE 267 mg/dL (75-110); POTASSIUM 4.2 mmol/L (3.6-5.0); TOTAL PROTEIN 8.8 g/dL (6.3-8.2)
[2020-04-03] MEDS ORDERED: DIPHENHYDRAMINE HCL 50 MG/ML VIAL IV ONE (22:24)
[2020-04-03] MEDS ORDERED: HALOPERIDOL LACTATE INJ 5 MG/1 ML VIAL IM ONE (22:24)
--- NOTE | 2020-04-03 22:31 | ER Document Report ---
ED General - General Chief Complaint: Abdominal Pain Stated Complaint: ABDOMINAL PAIN Time Seen by Provider: 04/03/20 22:09 Primary Care Provider: GLEN MCGRATH PA-C [Primary Care Provider] - Follow up as needed TRAVEL OUTSIDE OF THE [place] IN LAST 30 DAYS: No - HPI Context: This is a 45-year-old female, well-known to this ED, presenting complaining of abdominal pain. Patient has had multiple visits to this ED, often complaining of abdominal pain and typically demands narcotic pain medication for her symptoms. Patient was seen here yesterday, diagnosed with a left periorbital cellulitis and was put on clindamycin and prednisone. Patient returns today stating that she has had nausea, vomiting, diffuse abdominal pain and has not been able to keep down the clindamycin and the prednisone prescribed to her. Patient was transported into the ED by EMS and was given IV fluids, fentanyl, and 25 mg of Benadryl. Patient states that her pain is diffuse is a 5 out of 5, and describes the pain is sharp. Patient states that nothing is alleviating her symptoms and vomiting and touching her abdomen makes the pain worse. Patient denies history of COVID-19 infection, known exposure to Covid positive patients, known exposure to persons under investigation for COVID-19. Associated symptoms: Other - See HPI Exacerbated by: Other - See HPI Relieved by: Other - See HPI Similar symptoms previously: Yes - Related Data Allergies/Adverse Reactions: metoclopramide HCl [From Reglan] Allergy (Unknown, Verified 04/02/20 08:10) Home Medications: clindamycin, prednisone Past Medical History - General Information source: Patient - Social History Smoking Status: Never Smoker Frequency of alcohol use: None Drug Abuse: None Family History: Reviewed & Not Pertinent, DM, Hypertension Patient has homicidal ideation: No - Past Medical History Cardiac Medical History: Reports: Hx Hypercholesterolemia, Hx Hypertension Denies: Hx Atrial Fibrillation, Hx Coronary Artery Disease, Hx DVT, Hx Pulmonary Embolism Pulmonary Medical History: Denies: Hx Asthma, Hx COPD Neurological Medical History: Denies: Hx Seizures Endocrine Medical History: Reports: Hx Diabetes Mellitus Type 2. Denies: Hx Diabetes Mellitus Type 1, Hx Hyperthyroidism, Hx Hypothyroidism Renal/ Medical History: Reports: Hx Renal Insufficiency. Denies: Hx Peritoneal Dialysis GI Medical History: Reports: Hx Gastroesophageal Reflux Disease, Hx Hiatal Hernia. Denies: Hx Cirrhosis, Hx Crohn's Disease, Hx Hepatitis, Hx Ulcerative Colitis Musculoskeletal Medical History: Reports Hx Arthritis, Denies Hx Gout Skin Medical History: Reports Hx Eczema, Denies Hx Psoriasis Psychiatric Medical History: Reports: Hx Anxiety, Hx Bipolar Disorder, Hx Depression Infectious Medical History: Reports: Hx MRSA. Denies: Hx Hepatitis Past Surgical History: Reports: Hx Cholecystectomy - Immunizations Immunizations up to date: Yes Hx Diphtheria, Pertussis, Tetanus Vaccination: Yes - unknown Hx Pneumococcal Vaccination: 05/04/10 Review of Systems - Review of Systems Constitutional: No symptoms reported EENT: No symptoms reported Cardiovascular: No symptoms reported Respiratory: No symptoms reported Gastrointestinal: Abdominal pain, Nausea, Vomiting Genitourinary: No symptoms reported Female Genitourinary: No symptoms reported Musculoskeletal: No symptoms reported Skin: No symptoms reported Hematologic/Lymphatic: No symptoms reported Neurological/Psychological: No symptoms reported -: Yes All other systems reviewed and negative Physical Exam - Vital signs Vitals: Resp Pulse Ox 39 H 100 04/03/20 21:38 04/03/20 21:38 - Notes Notes: CONSTITUTIONAL Patient is writhing around in bed and moaning. Patient is at times distractible and well states still long enough for this MD to examiner but consistently reverts to rocking and writhing back and forth in the bed and moaning and complaining of pain. HEAD [Atraumatic, Normocephalic.] EYES [Eyes are normal to inspection, No discharge from eyes, Extraocular muscles intact, Sclera are normal, Conjunctiva are normal.] ENT [External ears normal to inspection, Nose examination normal, Mouth normal to inspection.] NECK [Normal ROM, No jugular venous distention, No meningeal signs, ] RESPIRATORY CHEST [Chest is nontender, Breath sounds normal, No respiratory distress.] CARDIOVASCULAR Tachycardia, No murmurs, Normal S1 S2, No rub, No gallop.] ABDOMEN [Abdomen is nontender, No pulsatile masses, No other masses, Bowel sounds normal, No distension, No peritoneal signs, No hernias.] BACK [There is no CVA Tenderness, There is no tenderness to palpation, Normal inspection.] UPPER EXTREMITY [Inspection normal, No cyanosis, No clubbing, No edema, 2+ radial pulses.] LOWER EXTREMITY [Inspection normal, No cyanosis, No clubbing, No edema, No calf tenderness, 2+ femoral pulses.] NEURO [No focal motor deficits, No focal sensory deficits, Speech normal.] SKIN [Skin is warm, Skin is dry, Skin is normal color.] PSYCHIATRIC [odd affect. ] Course - Re-evaluation Re-evalutation: 04/04/20 00:46 Patient states she is feeling better at this time. Patient states she is unable to provide a urine sample. Patient also states that she is refusing to have the CAT scan of her abdomen and pelvis done in furthermore states that she feels better and is ready to go home. Medical decision making: I think the patient's symptoms and findings are most consistent with at a minimum a adverse drug reaction and are very suspicious for drug-seeking behavior, specifically narcotics. I believe that the white count of 20,000 is related to her recently started prednisone as her orbits do not appear to be edematous or erythematous and there does not appear to be paralysis of proptosis to make me suspect a post septal cellulitis. I will order a dose of Rocephin, and instruct the patient to stop taking clindamycin and prednisone as they are associated with adverse abdominal side effects and put the patient on Keflex. Results of ED MSE discussed with patient. All questions were answered. Emergency signs and symptoms, reasons to return to the emergency department discussed with patient. - Vital Signs Vital signs: Temp Pulse Resp BP Pulse Ox 98.2 F 23 H 135/84 H 97 04/03/20 21:45 04/03/20 22:01 04/03/20 22:00 04/03/20 22:01 - Laboratory Result Diagrams: 04/03/20 21:42 04/03/20 21:42 Laboratory results interpreted by me: 04/03/20 04/03/20 21:42 21:42 WBC 20.0 H Hgb 11.3 L Hct 34.5 L MCV 79 L MCH 25.7 L RDW 16.5 H Abs Neuts (Manual) 13.6 H Abs Monocytes (Manual) 2.2 H Sodium 136.5 L Carbon Dioxide 21 L BUN 27 H Est GFR (MDRD) Non-Af 50 L Glucose 267 H Calcium 10.3 H AST 91 H Alkaline Phosphatase 144 H Total Protein 8.8 H Discharge - Discharge Clinical Impression: Adverse drug reaction Qualifiers: Encounter type: initial encounter Qualified Code(s): T50.905A - Adverse effect of unspecified drugs, medicaments and biological substances, initial encounter Abdominal pain Qualifiers: Abdominal location: generalized Qualified Code(s): R10.84 - Generalized abdominal pain Nausea and vomiting Qualifiers: Vomiting type: unspecified Vomiting Intractability: non-intractable Qualified Code(s): R11.2 - Nausea with vomiting, unspecified Condition: Stable Disposition: HOME, SELF-CARE Additional Instructions: You have been diagnosed with a adverse drug reaction to clindamycin and prednisone. It is recommended that you stop taking these 2 medications as they can cause abdominal discomfort. You are being switched over to Keflex for the antibiotic to use as an alternative to clindamycin Along with Bactrim DS. Take these medications as prescribed. You are also being prescribed Phenergan suppositories to use as needed for nausea. Return to the Emergency Department without delay if any worse. HOME CARE INSTRUCTIONS & INFORMATION: Thank you for choosing us for your medical needs. We hope you're satisfied with the care you received. After you leave, you must properly care for your problem and, at the same time, observe its progress. Any condition can change. Some illnesses can change rapidly over hours or days. If your condition worsens, return to the Emergency Department or see your physician promptly. ABOUT YOUR X-RAYS AND EKG'S: If you had an EKG or X-rays taken, they have been read by the Emergency Physician. The X-rays and EKG's will also be read by a Radiologist or C Wpf Developer within 24 hours. If discrepancies are noted, you will be notified by telephone. Please be certain the ED has a correct telephone number & address where you can be reached. Also, realize that some fractures or abnormalities do not show up on initial X-rays. If your symptoms continue, see your physician. ABOUT YOUR LABORATORY TEST: If you had laboratory tests, the results have been reviewed by the Emergency Physician. Some test results (for example cultures) may not be available for several days. You will be contacted if any test result shows you need additional treatment. Please be certain the ED has a correct telephone number and address where you can be reached. ABOUT YOUR MEDICATIONS: You will receive instructions on how to take your medicine on the prescription label you receive. Additional information may be provided by the Pharmacy. If you have questions afterwards, call the ED for clarification or further instructions. Some prescribed medications may cause drowsiness. Do not perform tasks such as driving a car or operating machinery without consulting your Pharmacist. If you feel you need a refill of pain medication, your condition will need re-evaluation. Please do not call for a refill of any medication. ABOUT YOUR SIGNATURE: Signature of this document acknowledges to followin. Understanding that you received emergency treatment and that you may be released before al medical problems are known or treated. Please be certain the ED has a correct phone number & address where you can be reached. 2. Acknowledgement that you will arrange for follow-up care as recommended. 3. Authorization for the Emergency Physician to provide information to your follow-up Physician in order to maximize your care. AT ANY TIME, IF YOUR SYMPTOMS CHANGE SIGNIFICANTLY OR WORSEN OR YOU DEVELOP NEW SYMPTOMS, RETURN TO THE EMERGENCY DEPARTMENT IMMEDIATELY FOR RE-EVALUATION. OUR GOAL IS TO PROVIDE EXCELLENT MEDICAL CARE! WE HOPE THAT WE HAVE MET YOUR EXPECTATIONS DURING YOUR EMERGENCY DEPARTMENT VISIT AND THAT YOU FEEL YOU HAVE RECEIVED EXCELLENT CARE! Prescriptions: Sulfamethoxazole/Trimethoprim [Bactrim Ds Tablet] 1 tab PO BID 10 Days #20 tablet Cephalexin Monohydrate [Keflex 500 mg Capsule] 500 mg PO BID 10 Days #20 capsule Promethazine HCl [Phenergan 25 mg Supp.rect] 1 supp MT Q6H #6 supp.rect Referrals: GLEN MCGRATH PA-C [Primary Care Provider] - 04/04/20
[2020-04-03 22:56] LABS: ABSOLUTE LYMPHOCYTES# (MANUAL) 4.2 10^3/uL (0.5-4.7); ABSOLUTE MONOCYTES # (MANUAL) 2.2 10^3/uL (0.1-1.4); BASOPHILS % (MANUAL) 0 % (0-2); EOSINOPHILS % (MANUAL) 0 % (0-6); LYMPHOCYTES % (MANUAL) 21 % (13-45); MONOCYTES % (MANUAL) 11 % (3-13); SEGMENTED NEUTROPHILS % (MAN) 68 % (42-78); TOTAL CELLS COUNTED 100
[2020-04-03 22:58] LABS: ANISOCYTOSIS 1+; OVALOCYTES 1+; PLATELET COMMENT ADEQUATE; POIKILOCYTOSIS 1+; TEAR DROP CELLS SLIGHT; TOXIC GRANULATION 1+; TOXIC VACUOLATION PRESENT
[2020-04-04] MEDS ORDERED: CEFTRIAXONE INJ 250 MG VIAL IM ONE (00:45)
[2020-04-04 01:05] VITALS: BP 136/96
== END 2020-04-04 01:06 | disposition home or self-care (01) ==
LOC: ER 21:35
DX: R10.84 Generalized abdominal pain (principal); R11.2 Nausea with vomiting, unspecified; T36.8X5A Adverse effect of other systemic antibiotics, initial encounter; T38.0X5A Adverse effect of glucocorticoids and synthetic analogues, initial encounter; L03.213 Periorbital cellulitis; I10 Essential (primary) hypertension; E11.9 Type 2 diabetes mellitus without complications; Z90.49 Acquired absence of other specified parts of digestive tract; Z88.8 Allergy status to other drugs, medicaments and biological substances; Z87.19 Personal history of other diseases of the digestive system
CPT/HCPCS: 99284; 96372 ×2; 96374; 36415; 82962; 83690; 85025; 80053; J1200; J1630; J0696